=== PATIENT | male | born 1940 | race Caucasian/White ===

== ENCOUNTER 2019-09-02 14:08 | Outpatient (CLI) | payer MEDICARE, SELFPAY ==
--- NOTE | ~2019-09-02 | XR_ITS ---
EXAMINATION: XR knee LT min 4V DATE: 09/02/2019 14:30 INDICATION: Left knee pain TECHNIQUE: Four views of the left knee were obtained. COMPARISON: None. FINDINGS: Alignment is normal. No fracture or osteochondral lesion. There is mild tricompartmental os teoarthritis characterized by tiny marginal osteophytes. There is a small knee joint effusion. Soft t issues are unremarkable. IMPRESSION: 1. Small knee joint effusion. Reviewed, dictated and finalized at location A.
== END 2019-09-02 14:09 | disposition home or self-care (01) ==
PROVIDERS: PCP Family Medicine Adolescent Medicine; Visit Provider Family Medicine Adolescent Medicine
DX: M25.562 Pain in left knee (principal); M25.462 Effusion, left knee
CPT/HCPCS: 73564

== ENCOUNTER 2019-09-11 11:39 | Outpatient (CLI) | payer MEDICARE, SELFPAY ==
--- NOTE | ~2019-09-11 | US_ITS ---
EXAMINATION: US venous doppler [facility] DATE: 09/11/2019 12:29 INDICATION: Left lower limb edema. TECHNIQUE: Grayscale ultrasound images without and with compression and Doppler ultrasound images of the left lower extremity veins were obtained. COMPARISON: Ultrasound 08/30/2017 FINDINGS: The visualized portions of left common femoral vein, profunda (deep) femoral vein, femoral vein, popl iteal vein, peroneal veins, posterior tibial veins, and greater saphenous vein outflow are patent. IMPRESSION: 1. No deep venous thrombosis. Reviewed, dictated and finalized at location A.
== END 2019-09-11 11:40 | disposition home or self-care (01) ==
PROVIDERS: PCP Family Medicine Adolescent Medicine; Visit Provider Orthopaedic Surgery
DX: R60.0 Localized edema (principal)
CPT/HCPCS: 93971

== ENCOUNTER 2020-07-27 11:39 | Outpatient (CLI) | payer MEDICARE, SELFPAY ==
--- NOTE | 2020-07-27 13:08 | ECG_ITS ---
Measurements Intervals [place] Rate: 59 P: 50 [place]: 180 QRS: -18 QRSD: 87 T: 43 QT: 416 QTc: 413 Interpretive Statements SINUS BRADYCARDIA POOR R WAVE PROGRESSION, ANTERIOR LEADS BASELINE ARTIFACT- I, II, III, AVR, AVL BORDERLINE ECG Electronically Signed On 07-27-2020 15:27:23 CDT by George Wilkins D.O.
[2020-07-27 13:42] LABS: Basophils Percent Auto 0.5 % (0.2-1.2); Eosinophils Absolute Auto 0.4 K/mm3 (0-0.3); Eosinophils Percent Auto 7.5 % (0-4.4); Hematocrit 36.8 % (42.0-52.0); Hemoglobin 11.8 g/dL (14.0-18.0); Immature Granulocyte Absolute 0.04 K/mm3 (0.00-0.031); Immature Granulocyte Percent A 0.7 % (0-0.5); Lymphocytes Absolute Auto 1.37 K/mm3 (0.9-3.2); Lymphocytes Percent Auto 23.4 % (18.3-44.2); Mean Corpuscular HGB Conc 32.1 g/dl (32-36); Mean Corpuscular Hemoglobin 26.5 pg (26-34); Mean Corpuscular Volume 82.5 fl (80-100); Mean Platelet Volume 10.4 fl (7.4-10.4); Monocytes Absolute Auto 0.5 K/mm3 (0.1-0.6); Monocytes Percent Auto 9.2 % (2.6-8.5); Neutrophils Absolute Auto 3.4 K/mm3 (1.3-6.7); Neutrophils Percent Auto 58.7 % (45.5-73.1); Platelet Count Result 163 k/mm3 (150-375); Red Blood Count 4.46 M/mm3 (4.6-6.20); Red Cell Distribution Width 14.7 % (11.5-14.5); White Blood Count 5.9 K/mm3 (4.5-10.0)
[2020-07-27 13:48] LABS: Urine Cotinine NEGATIVE
[2020-07-27 13:55] LABS: Albumin Level 3.9 g/dL (3.5-5.1); Estimated Glomerular Filt Rate 59; Glucose 90 mg/dL (75-110)
[2020-07-27 13:57] LABS: Hemoglobin A1C 5.6 % (<5.7)
== END 2020-07-27 11:40 | disposition home or self-care (01) ==
LOC: ANHSURGERY 11:44
PROVIDERS: PCP Family Medicine Adolescent Medicine; Visit Provider Orthopaedic Surgery
DX: M17.12 Unilateral primary osteoarthritis, left knee (principal); Z01.818 Encounter for other preprocedural examination; R94.31 Abnormal electrocardiogram [ECG] [EKG]
CPT/HCPCS: 80307; 82040; 82565; 82947; 83036; 85025; 86850; 86900; 86901; 93005

== ENCOUNTER → 2020-08-02 00:47 | Outpatient (CLI) | payer MEDICARE, SELFPAY ==
[2020-08-02 20:24] LABS: SARS-CoV-2 RNA PCR Negative
== END ==
PROVIDERS: PCP Family Medicine Adolescent Medicine; Visit Provider Orthopaedic Surgery
DX: M17.12 Unilateral primary osteoarthritis, left knee (principal); Z01.812 Encounter for preprocedural laboratory examination; Z20.822 Contact with and (suspected) exposure to COVID-19
CPT/HCPCS: C9803; U0003; U0005

== ENCOUNTER 2020-08-05 01:36 | Day surgery (SDC) | payer MEDICARE, SELFPAY ==
[2020-07-27 12:30] VITALS: BP 132/70; PULSE 58; RESP 20; TEMP 36.7; O2SAT 95; BMI 28.1
--- NOTE | 2020-07-29 10:13 | PM.IMHP ---
H&P: HPI History of Present Illness Date/Time: 07/29/20 10:13 The patient is a 80-year-old male presents with left knee pain. The patient has a chronic ongoing history of pain localized to the left knee this is due to primary osteoarthritis. Patient has trouble squatting kneeling twisting or turning going up and down stairs. Can not stand or walk for long periods. The pain is worse with activity somewhat relieved by rest. Despite conservative measures over the years including cortisone therapy and anti-inflammatories symptoms continue. X-rays do show advanced primary osteoarthritis in the left knee joint. The patient notes loss of motion a aching pain with [id number] changes noted on x-ray. The patient has a varus deformity of the knee that is worse with time as well. At this point the patient has discussed further treatment options in detail with Dr. Verde he would now like to proceed with left total knee arthroplasty. Chief Complaint: Left knee pain due to advanced primary osteoarthritis left knee joint Review of Systems Review of Systems: All systems reviewed & are unremarkable except as noted in HPI and below PMFSH Family History Family History Father Cerebrovascular accident, Onset Age: 63 Social History Social History Smoking status: Never smoker Smokeless tobacco user: chewing tobacco Second hand tobacco smoke exposure: No Additional smoking assessment comments: STATES CHEWED FROM AGE 15 UNTIL QUITTING IN 2014 Alcohol intake: never Substance use: never Substance use type: does not use Spiritual care concerns: No Meds Home Medications and Allergies Home Medications Medication Instructions Recorded Confirmed Type Vinegar 2 tab-cap HS 07/27/20 History ascorbic acid (vitamin C) [Vitamin 1 g PO DAILY 07/27/20 07/27/20 History C] aspirin [Aspirin Low Dose] 81 mg PO HS 07/27/20 07/27/20 History atenolol 50 mg PO QAM 07/27/20 07/27/20 History atorvastatin 40 mg PO QAM 07/27/20 07/27/20 History brinzolamide-brimonidine 1 drp EACH EYE TID 07/27/20 07/27/20 History [Simbrinza] cswquvvxcaxun-snb-gguh20-PF 1 drp EACH EYE BID 07/27/20 07/27/20 History [Refresh Optive Silas-3 (PF)] folic acid 0.8 mg PO QAM 07/27/20 07/27/20 History ipratropium bromide 2 spray INTRANASAL BID 07/27/20 07/27/20 History latanoprost 1 drp RIGHT EYE HS 07/27/20 07/27/20 History multivitamin [Multi-Vitamin] 1 tablet PO QAM 07/27/20 07/27/20 History co-px-ax3-vjv-usy-rci-flx-lact 1 cap PO BID 07/27/20 07/27/20 History [Dry Eye Formula] omeprazole 20 mg PO BID 07/27/20 07/27/20 History tamsulosin 0.4 mg PO HS 07/27/20 07/27/20 History tiotropium-olodaterol [Stiolto 1 puff INHALATION BID 07/27/20 07/27/20 History Respimat] vitamin K35-jmlkg acid 1 tablet PO DAILY 07/27/20 07/27/20 History vitamin E 450 mg PO DAILY 07/27/20 07/27/20 History Allergies Allergy/AdvReac Type Severity Reaction Status Date / Time Penicillins Allergy Severe STATES Unverified 07/27/20 12:13 HUGE RASH Exam Narrative: Exam Narrative: On exam the patient is noted be a well-developed well-nourished male no acute distress. He is alert and oriented x3. Normal mood and affect. Hearing and vision are intact. Respiratory is good no distress. Pulse regular rate rhythm. Abdomen benign. Extremities showed the patient's left knee to be painful with manipulation range of motion. He has motion from 5-95 degrees with varus deformity subpatellar crepitation is noted with tenderness on the medial joint line. Mild knee joint effusion is noted and pain with extremes of motion. Neurovascular is intact. Walks an antalgic gait because of his knee pain. Hips move well with negative Stinchfield negative ROGE. Skin is intact. Central nervous system exam within normal limits. Assessment and Plan Additional Plan By x-ray and exam
[2020-08-05] VITALS (16 sets, daily range): BP systolic 129–172; BP diastolic 56–82; PULSE 54–64; RESP 10–20; TEMP 36.1–36.8; O2SAT 97–100
--- NOTE | ~2020-08-05 | XR_ITS ---
XR knee LT 2V DATE: 08/05/2020 09:50 INDICATION: Left total knee replacement TECHNIQUE: Postoperative AP and crosstable lateral views of the left knee COMPARISON: 09/02/2019 left knee FINDINGS: There are anterior left knee skin rogerio. There is expected subcutaneous and intra-articul ar emphysema following left total knee arthroplasty with patellar resurfacing. Normal alignment of th e prosthetic components. No fracture or dislocation, periosteal reaction or bone destruction or unusu al radiopaque foreign body is evident. IMPRESSION: Left total knee arthroplasty with patellar resurfacing Reviewed, dictated and finalized at location B.
[2020-08-05] MEDS: ACETAMINOPHEN 500 MG TABLET 1000 MG PO (06:31)
[2020-08-05] MEDS: LACTATED RINGERS 1,000 ML 30 ML IV CONT ×2 (06:48→09:34)
--- NOTE | 2020-08-05 06:49 | WPDANESEPPF ---
Anes - Initial Pre Proc Eval Procedure: Operation Date: 08/05/20 07:30 Proposed Procedures p Left Total Knee Arthroplasty - Tim Verde MD Date/Time: 08/05/20 06:49 Surgeon: Tim Verde MD Pre Op Diagnosis: OA left knee Patient Data Age: 80 Gender: M Height: 5 ft 8 in Weight: 78.7 kg Last Vital Signs Temp 36.1 C L 08/05/20 06:06 Pulse 64 08/05/20 06:06 Resp 16 08/05/20 06:06 BP 172/82 H 08/05/20 06:06 Pulse Ox 100 08/05/20 06:06 Allergies Allergy/AdvReac Type Severity Reaction Status Date / Time Penicillins Allergy Severe Hives Verified 08/05/20 06:08 Home Medications Medication Instructions Recorded Confirmed Type Vinegar 2 tab-cap HS 07/27/20 08/05/20 History ascorbic acid (vitamin C) [Vitamin 1 g PO DAILY 07/27/20 08/05/20 History C] aspirin [Aspirin Low Dose] 81 mg PO HS 07/27/20 08/05/20 History atenolol 50 mg PO QAM 07/27/20 08/05/20 History atorvastatin 40 mg PO QAM 07/27/20 08/05/20 History brinzolamide-brimonidine 1 drp EACH EYE TID 07/27/20 08/05/20 History [Simbrinza] mkebdrwuwmvfm-jgu-cksy88-PF 1 drp EACH EYE PRN 07/27/20 08/05/20 History [Refresh Optive Silas-3 (PF)] folic acid 0.8 mg PO QAM 07/27/20 08/05/20 History ipratropium bromide 2 spray INTRANASAL BID 07/27/20 08/05/20 History latanoprost 1 drp RIGHT EYE HS 07/27/20 08/05/20 History multivitamin [Multi-Vitamin] 1 tablet PO QAM 07/27/20 08/05/20 History aj-vm-fo1-eic-vwz-gok-flx-lact 1 cap PO BID 07/27/20 08/05/20 History [Dry Eye Formula] omeprazole 20 mg PO BID 07/27/20 08/05/20 History tamsulosin 0.4 mg PO HS 07/27/20 08/05/20 History tiotropium-olodaterol [Stiolto 1 puff INHALATION BID 07/27/20 08/05/20 History Respimat] vitamin A51-ezedg acid 1 tablet PO DAILY 07/27/20 08/05/20 History vitamin E 450 mg PO DAILY 07/27/20 08/05/20 History Patient hx anesthesia problems: none Family hx anesthesia problems: none PMFSH Past Medical History Medical History (Updated 08/05/20 @ 06:50 by Matt Watkins MD) COPD (chronic obstructive pulmonary disease) HTN (hypertension) Hyperlipidemia Surgical History Surgical History (Updated 08/05/20 @ 06:50 by Matt Watkins MD) H/O hernia repair History of shoulder surgery Family History Family History Father Cerebrovascular accident, Onset Age: 63 Social History Social History Smoking status: Never smoker Smokeless tobacco user: chewing tobacco Second hand tobacco smoke exposure: No Additional smoking assessment comments: STATES CHEWED FROM AGE 15 UNTIL QUITTING IN 2014 Alcohol intake: never Substance use: never Substance use type: does not use Living arrangements: with family Spiritual care concerns: No Anes - Eval Final PreProcedure Day of Procedure 08/05/20 06:49 Patient weight: normal Heart: regular rate and rhythm Lungs: clear to auscultation Airway: Mallampati scale class II Neurological: alert and oriented Last oral intake: >/= 8 hours ASA classification: III Emergent: no Anesthetic plan: proceed Anesthesia type and monitoring: general LMA and standard monitoring Informed Consent: The patient's anesthetic plan and its attendant risks and benefits were discussed with the patient/family/POA. Questions were solicited and answers provided to the satisfaction of the patient/family/POA.
[2020-08-05] MEDS: TRANEXAMIC ACID 1,000MG/ISO100 1,000 MG/100 ML BAG 200 MG IVPB (07:05)
--- NOTE | 2020-08-05 07:11 | WPDHPUPDATE1 ---
History and Physical Update Update Date/Time: 08/05/20 07:11 History and Physical has been reviewed, including an updated exam of the patient. There are NO changes in the patient's condition. Risks, benefits, and alternatives have been discussed and questions answered. Patient agrees to proceed with procedure.
--- NOTE | 2020-08-05 07:20 | WPDANESPNB ---
Anes - Peripheral Nerve Block Date/Time: 08/05/20 07:20 I have discussed with the patient/family/POA the placement of a peripheral nerve block for post-operative pain management, including associated risks, benefits, complications, and side effects. Alternative methods of post-operative analgesia were detailed. Questions were solicited and answers provided to the satisfaction of the patient/family/POA. Time-Out: A pre-procedural Time-Out was completed immediately before starting the procedure and confirmed: Patient Identification, Site, Procedure, Patient Position and the Availability of Requisite Equipment. Clinical Indications: Acute post-operative pain management requested by the operative surgeon. Nerve Block Insertion Note Anes-nerve block: femoral left Patient position: supine Needle: 22 gauge, stimulating, insulated echogenic needle. Needle length: 50 mm Technique: nerve stimulation lost at (mA) (0.4) Injectate: bupivacaine 0.5% with epi 5 mcg/ml (20cc) and dexamethasone (mg) (6cc) Observations: tolerated well Complications: none Procedure start time:: 718 Procedure end time::
[2020-08-05] MEDS: ceFAZolin 2 GM/D5W 50 ML 2 GM/50 ML BAG IVPB (07:25)
[2020-08-05] MEDS: GENTAMICIN BONE CEMENT REFOBACIN 1 EACH TOPICAL (08:07)
--- NOTE | 2020-08-05 09:02 | PM.PROC ---
Procedure Note - Detailed Date of procedure: 08/05/20 Pre-op diagnosis: OA left knee Post-op diagnosis: same Procedure performed: [Right] total knee arthroplasty Description of procedure: The patient was brought to the operating room. General anesthetic was administered. Placed on the operating table and sterilely prepped and draped in usual manner. A longitudinal incision was made. Tourniquet inflated to 300 mmHg for a total of [time] minutes. Dissection carried down to the fascia. Medial parapatellar incision was made and the patella subluxated laterally. Patella cut from [27] to [16] mm and sized for a [37] mm button. The tibia cut perpendicular to the long axis and femur cut in 5 degrees of valgus, a [67.5] femur trialed. [71] tibia was felt to fit the best. The soft tissue balanced, hemostasis obtained. All [address], [71] tibia, [67.5] femur, [37] mm patella, and [] mm poly. Motion was 0-125 degrees with good stablility and flexion and extension. The wound was closed with #2 vicryl, 2-0 Vicryl and rogerio. Anesthesia: GETA Surgeon: Tim Verde MD Telesales Specialist: Malcolm Conn Estimated blood loss (mL): 200 Drains: No Packing: No Pathology: none sent Complications: No immediate complications Condition: stable Disposition: PACU Findings: arthritis
[2020-08-05] MEDS: fentaNYL CITRATE INJ (*CRX) 100 MCG/2 ML VIAL 25 MCG IV PUSH ×4 (10:16→11:20)
--- NOTE | 2020-08-05 10:39 | SUR.PHASEI ---
[phone] sbar faxed floor notified
--- NOTE | 2020-08-05 12:45 | ADMGEN ---
This patient, Dylan Masters, was admitted to Medical Room 242-01. Patient/family oriented to hospital policies and general routines including ID bracelet, bed and alarms, visiting hours, pain management, procedures, bathroom and other care routines, personal items, smoking policy, room service/diet, and visiting hours. Information on how to activate the Rapid Response Team has been discussed. Patient/Family are encouraged to report perceived risks to care and to ask questions if they do not understand what they are told or what they should do.
[2020-08-05] MEDS: PANTOPRAZOLE 40 MG TABLET PO ×2 (12:51→18:04)
[2020-08-05] MEDS: DOCUSATE SODIUM 100 MG CAPSULE PO ×2 (12:51→18:04)
[2020-08-05] MEDS: ATORVASTATIN 40 MG TABLET PO (12:51)
[2020-08-05] MEDS: CELECOXIB 200 MG CAPSULE PO ×2 (12:51→18:04)
[2020-08-05] MEDS: BRIMONIDINE TARTRATE 0.2% OP SOLN 5 ML BTL 1 DROP EACH EYE ×2 (12:52→18:04)
[2020-08-05] MEDS: atenoloL 50 MG TABLET PO (12:52)
[2020-08-05] MEDS: BRINZOLAMIDE 1% OPHTH SUSP 10 ML 1 DROP EACH EYE ×2 (12:53→18:04)
--- NOTE | 2020-08-05 15:53 | PM.IMCN ---
Assessment and Plan Assessment and plan (1) Total knee replacement status: Code(s): Z96.659 - Presence of unspecified artificial knee joint Status: Acute Assessment and Plan: Postop care per orthopedic provider Dr. Verde. DVT prophylaxis per Dr. Verde. The patient is Xarelto. Continue with PT and OT. (2) HTN (hypertension): Code(s): I10 - Essential (primary) hypertension Status: Chronic Assessment and Plan: Continue with his home medication of atenolol. (3) Hyperlipidemia: Code(s): E78.5 - Hyperlipidemia, unspecified Status: Chronic Assessment and Plan: Continue with Lipitor (4) Glaucoma: Code(s): H40.9 - Unspecified glaucoma Status: Chronic Assessment and Plan: Continue with home eye drops. (5) Rheumatoid arthritis: Code(s): M06.9 - Rheumatoid arthritis, unspecified Status: Chronic Assessment and Plan: This is being managed outpatient. (6) BPH (benign prostatic hyperplasia): Code(s): N40.0 - Benign prostatic hyperplasia without lower urinary tract symptoms Status: Chronic Assessment and Plan: Continue with Flomax HPI Data of Consult Consult date: 08/05/20 Requesting Physician: Tim Verde MD Primary Care Provider: Benedicto Westbrook MD Consult Narrative Narrative: Dylan Masters is a 80 year old male who has a history of rheumatoid arthritis. The patient has been having chronic left knee pain. The patient was scheduled for surgery last year but due to covid 19 pandemic he was unable to have surgery performed at that time. 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 The patient is unable to tolerate the discomfort. He did try conservative measures over the years including a cortisone therapy and anti-inflammatories. The patient notes loss of motion and signs of advanced primary osteoarthritis left knee joint. The patient has varus deformity of the left knee. The patient underwent a left total knee arthroplasty per Dr. Verde today. Please see operative note. According to the procedure note there were no immediate complications. The patient is sitting up in the chair without any complaints at this time. The patient is being admitted for observation and I am seeing him as a consult on the date of service of 08/05/2020. Review of Systems Review of Systems: All systems reviewed & are unremarkable except as noted in HPI and below Constitutional: Constitutional: Reports as per HPI and Reports no additional constitutional complaints Eyes: Eyes: Reports as per HPI and Reports no additional eye complaints ENT: Reports system reviewed and no additional complaints, except as documented and Reports Normal hearing present Cardiovascular: Cardiovascular: Reports no additional cardiovascular complaints Respiratory: Respiratory: Reports no additional respiratory complaints and Reports no additional respiratory complaints Gastrointestinal: Gastrointestinal: Reports as per HPI and Reports no additional gastrointestinal complaints Musculoskeletal: Musculoskeletal: Reports no additional musculoskeletal complaints Integumentary/Breasts: Skin/Breast: Reports system reviewed and no additional complaints, except as docu and Reports as per HPI Neurologic: Reports system reviewed and no additional complaints, except as documented, Reports as per HPI and Reports Normal hearing present Psychiatric: Psychiatric: Reports no additional psychiatric complaints and Reports as per HPI Endocrine: Endocrine: Reports no additional endocrine complaints Hematologic/Lymphatic: Hematologic/Lymphatic: Reports no additional hematologic/lymphatic complaints Allergic/Immunologic: Allergic/Immunologic: Reports no additional allergic/immunologic complaints [facility] Past Medical History Medical History (Updated 08/05/20 @ 16:05 by Sharona Gotti NP) AAA (abdominal aortic aneurysm) Rachid
[2020-08-05] MEDS: RIVAROXABAN 10 MG TABLET PO (18:04)
[2020-08-05] MEDS: SENNOSIDES 8.6 MG TABLET 17.2 MG PO (20:14)
[2020-08-05] MEDS: LATANOPROST 0.005% OP SOLN 2.5 ML BTL 1 DROP RIGHT EYE (20:14)
[2020-08-05] MEDS: ASPIRIN 81 MG ENTERIC TABLET PO (20:15)
[2020-08-05] MEDS: TAMSULOSIN HCL 0.4 MG CAPSULE PO (20:15)
[2020-08-06] VITALS (9 sets, daily range): BP systolic 124–147; BP diastolic 56–66; PULSE 52–68; RESP 14–20; TEMP 36.1–36.4; O2SAT 98–100
[2020-08-06] MEDS: oxyCODONE/ACETAMINOPHEN (*CRX) 5-325 MG TABLET 1 TABLET PO ×2 (04:22→08:18)
[2020-08-06 05:48] LABS: Basophils Percent Auto 0.2 % (0.2-1.2); Eosinophils Absolute Auto 0.1 K/mm3 (0-0.3); Eosinophils Percent Auto 1.1 % (0-4.4); Hematocrit 32.5 % (42.0-52.0); Hemoglobin 10.5 g/dL (14.0-18.0); Immature Granulocyte Absolute 0.04 K/mm3 (0.00-0.031); Immature Granulocyte Percent A 0.5 % (0-0.5); Lymphocytes Absolute Auto 1.46 K/mm3 (0.9-3.2); Lymphocytes Percent Auto 16.5 % (18.3-44.2); Mean Corpuscular HGB Conc 32.3 g/dl (32-36); Mean Corpuscular Hemoglobin 27.1 pg (26-34); Mean Platelet Volume 11.2 fl (7.4-10.4); Monocytes Absolute Auto 0.9 K/mm3 (0.1-0.6); Monocytes Percent Auto 10.3 % (2.6-8.5); Neutrophils Absolute Auto 6.3 K/mm3 (1.3-6.7); Neutrophils Percent Auto 71.4 % (45.5-73.1); Platelet Count Result 128 k/mm3 (150-375); Red Blood Count 3.87 M/mm3 (4.6-6.20); White Blood Count 8.9 K/mm3 (4.5-10.0)
[2020-08-06 06:06] LABS: Anion Gap 3 mmol/L (8-16); Blood Urea Nitrogen 22 mg/dL (9-20); Calcium 8.8 mg/dL (8.4-10.2); Carbon Dioxide 25 mmol/L (22-30); Chloride 110 mmol/L (98-107); Estimated CRCL calculation 38 ml/min; Estimated Glomerular Filt Rate 49; Glucose 113 mg/dL (75-110); Potassium 3.6 mmol/L (3.4-5.0); Sodium 138 mmol/L (137-145)
[2020-08-06] MEDS: PANTOPRAZOLE 40 MG TABLET PO (08:18)
[2020-08-06] MEDS: DOCUSATE SODIUM 100 MG CAPSULE PO (08:18)
[2020-08-06] MEDS: atenoloL 50 MG TABLET PO (08:18)
[2020-08-06] MEDS: ATORVASTATIN 40 MG TABLET PO (08:18)
[2020-08-06] MEDS: BRINZOLAMIDE 1% OPHTH SUSP 10 ML 1 DROP EACH EYE (09:14)
[2020-08-06] MEDS: BRIMONIDINE TARTRATE 0.2% OP SOLN 5 ML BTL 1 DROP EACH EYE (09:14)
--- NOTE | 2020-08-06 11:58 | PM.IMPN ---
Progress Note: A&P Assessment and Plan (1) Total knee replacement status: Qualifiers: Laterality: right Qualified Code(s): Z96.651 - Presence of right artificial knee joint Code(s): Z96.659 - Presence of unspecified artificial knee joint Status: Acute Assessment and Plan: POD#1 s/p planned right total knee arthroplasty by Dr Verde. Wound care, pain control, and DVT prophylaxis per the primary service. (2) HTN (hypertension): Qualifiers: Hypertension type: essential hypertension Qualified Code(s): I10 - Essential (primary) hypertension Code(s): I10 - Essential (primary) hypertension Status: Chronic Assessment and Plan: BPs reviewed; stable maintained on his home beta-blockade. Continue atenolol, monitor BP. (3) Hyperlipidemia: Qualifiers: Hyperlipidemia type: unspecified Qualified Code(s): E78.5 - Hyperlipidemia, unspecified Code(s): E78.5 - Hyperlipidemia, unspecified Status: Chronic Assessment and Plan: Maintained on his home statin therapy. (4) Glaucoma: Qualifiers: Glaucoma type: unspecified Laterality: unspecified laterality Qualified Code(s): H40.9 - Unspecified glaucoma Code(s): H40.9 - Unspecified glaucoma Status: Chronic Assessment and Plan: Continue with home eye drops. (5) Rheumatoid arthritis: Qualifiers: Rheumatoid arthritis location: unspecified site Rheumatoid factor presence: unspecified presence Qualified Code(s): M06.9 - Rheumatoid arthritis, unspecified Code(s): M06.9 - Rheumatoid arthritis, unspecified Status: Chronic Assessment and Plan: No acute issues. (6) BPH (benign prostatic hyperplasia): Qualifiers: Lower urinary tract symptom presence: symptoms absent Qualified Code(s): N40.0 - Benign prostatic hyperplasia without lower urinary tract symptoms Code(s): N40.0 - Benign prostatic hyperplasia without lower urinary tract symptoms Status: Chronic Assessment and Plan: No acute issues, Continue with Flomax. Additional Plan Thank you for allowing me to participate in this patient's care. Will follow with you while he is here. No medication changes made at this time. Discharge planning per the primary service; medically he is stable for discharge today from hospitalist standpoint. Call for any questions or concerns. Subjective Date/time seen: 08/06/20 1115 Interval history: Mr. Masters is a very pleasant 80yo M seen in follow-up now POD#1 s/p right total knee arthroplasty by Dr Verde. He is feeling well today and just finished working with therapy. He denies chest pain or shortness of breath. Pain is controlled at rest currently. Had a BM this morning. Tolerated breakfast without nausea, vomiting, or abdominal pain. Review of Systems Review of Systems: All systems reviewed & are unremarkable except as noted in HPI and below Exam Narrative: Exam Narrative: General: Male resting comfortably sitting up in bedside chair in no acute distress. HEENT: Normocephalic, EOMI, oral mucosa moist. Cardiovascular: Rate and rhythm are regular. Respiratory: Lungs clear to auscultation bilaterally. Respirations even and non-labored. Abdomen: Soft, non-tender, non-distended, bowel sounds present. Extremities: Peripheral pulses intact. Ice pack on right knee. RLE neurovascularly intact distal to the surgical site. Neuro: No focal neurological deficits. Speech is clear. Objective Data Vital Signs Vital Signs: Last Vital Signs Temp 97.6 F 08/06/20 09:20 Pulse 57 L 08/06/20 09:20 Resp 16 08/06/20 09
[2020-08-06] MEDS: HYDROcodone/acetaminophen (*CRX) 7.5-325 MG TABLET 1 TAB PO (14:18)
== END 2020-08-06 15:30 | disposition home or self-care (01) ==
LOC: ANHSURGERY 09:01 → ANH2MED 11:39
PROVIDERS: PCP Family Medicine Adolescent Medicine; Visit Provider Orthopaedic Surgery
PROC: (CPT 27447; principal; 2020-08-05 07:30)
DX: M17.12 Unilateral primary osteoarthritis, left knee (principal); G89.18 Other acute postprocedural pain; I10 Essential (primary) hypertension; E78.5 Hyperlipidemia, unspecified; J44.9 Chronic obstructive pulmonary disease, unspecified; Z87.891 Personal history of nicotine dependence
CPT/HCPCS: 27447; 64447; 36415; 73560; 80048; 80307; 82040; 82565; 82947; 83036; 85025; 86850; 86900; 86901; 93005; 97110; 97116; 97161; 97165; 97530; 97535; A9270; C1713; C1776; C9803; J0171; J0690; J1100; J1885; J2270; J2405; J2704; J2795; J3010; J3370; J7120; U0003; U0005

== ENCOUNTER 2020-10-05 12:34 | Outpatient (CLI) | payer MEDICARE, SELFPAY ==
--- NOTE | ~2020-10-05 | CT_ITS ---
EXAMINATION: CTA chest DATE: 10/05/2020 13:33 INDICATION: Thoracic aortic aneurysm without rupture TECHNIQUE: Computed tomographic angiography (CTA) of the chest was performed without and with 100 mL Omnipque-350 intravenous contrast. Maximum intensity projection 3D-reconstructions of the aorta and o ther arteries were constructed by the technologist on a separate workstation. The dose-length product (DLP) was 605.30 mGy-cm. Automated exposure control and iterative reconstruction technique were empl oyed. COMPARISON: 12/08/2016 FINDINGS: There is fusiform enlargement of the ascending aorta which measures up to 4.1 cm at the lev el of the main pulmonary artery. There is no dissection. Respiratory motion artifact slightly limits evaluation of the lung parenchyma. No acute opacities are identified. There is no pleural effusion or pneumothorax. Cardiomegaly is noted. There is a trace pericardial effusion. Calcified coronary arter y atherosclerosis is noted. There is stable, chronic mediastinal lymphadenopathy. A 6 mm nodule is no jessica in the left thyroid lobe. There is a partially imaged cyst of the left kidney measuring up to 13. 4 cm. A 10 mm cyst is noted in the right hepatic lobe. There is mild thoracic spondylosis. IMPRESSION: 1. Fusiform enlargement of the ascending aorta measuring up to 4.1 cm. 2. Cardiomegaly. 3. Stable, chronic mediastinal lymphadenopathy, likely old granulomatous disease. Reviewed, dictated and finalized at location A. IMPRESSION: 1. Fusiform enlargement of the ascending aorta measuring up to 4.1 cm. 2. Cardiomegaly. 3. Stable, chronic mediastinal lymphadenopathy, likely old granulomatous diseas e.
[2020-10-05 13:27] LABS: Estimated Glomerular Filt Rate 49
== END 2020-10-05 12:35 | disposition home or self-care (01) ==
PROVIDERS: PCP Family Medicine Adolescent Medicine; Visit Provider Internal Medicine Cardiovascular Disease
DX: I71.2 Thoracic aortic aneurysm, without rupture (principal); I51.7 Cardiomegaly
CPT/HCPCS: 71275; Q9967

== ENCOUNTER → 2022-04-10 16:42 | Outpatient (CLI) | payer MEDICARE, SELFPAY ==
--- NOTE | ~2022-04-10 | XR_ITS ---
XR foot RT min 3V 04/10/2022 17:38 Indication: Right foot pain Procedure: 3 views right foot Comparison: No prior studies for comparison. Findings: Osteopenia. There is a fracture deformity of the second proximal phalanx, likely chronic. T here is osteoarthritis of the first MTP joint. Lisfranc joint intact. Small degenerative calcaneal en thesophyte at the plantar surface. No focal soft tissue abnormality. No foreign bodies. Impression: 1: Fracture deformity right second proximal phalanx, likely chronic. Correlate for point tenderness. 2: Mild osteoarthritis of the first MTP joint. Reviewed, dictated and finalized at location A. GROWER Impression: 1: Fracture deformity right second proximal phalanx, likely chronic. Correlate for point tenderness. 2: Mild osteoarthritis of the first MTP joint.
== END ==
PROVIDERS: PCP Family Medicine Adolescent Medicine; Visit Provider Podiatrist Foot & Ankle Surgery
DX: M19.071 Primary osteoarthritis, right ankle and foot (principal)
CPT/HCPCS: 73630

== ENCOUNTER 2022-09-05 14:02 | Outpatient (CLI) | payer MEDICARE, SELFPAY ==
--- NOTE | ~2022-09-05 | XR_ITS ---
EXAMINATION: XR chest 2V Exam Date/Time: 09/05/2022 14:15 CDT HISTORY: dyspnea> 8 mos, hx of HTN, AAA, COPD,chews tobacco Comparison: 06/22/2015; CT chest 10/05/2020. RESULT: Lines, tubes, and devices: None. Lungs and pleura: Clear. Right lower lung scar. Cardiomediastinal silhouette: Stable. Calcified nodes. Other: No acute osseous or upper abdominal finding. Right nephrolithiasis. IMPRESSION: No acute cardiopulmonary process. Reviewed, dictated and finalized at location K.
== END 2022-09-05 14:03 | disposition home or self-care (01) ==
LOC: ANHIMG 14:06
PROVIDERS: PCP Family Medicine Adolescent Medicine; Visit Provider Internal Medicine Pulmonary Disease
DX: R06.09 Other forms of dyspnea (principal); I10 Essential (primary) hypertension; J44.9 Chronic obstructive pulmonary disease, unspecified; F17.220 Nicotine dependence, chewing tobacco, uncomplicated
CPT/HCPCS: 71046

== ENCOUNTER 2022-09-13 12:26 | Outpatient (CLI) | payer MEDICARE, SELFPAY ==
[2022-09-13 13:00] VITALS: PULSE 59; O2SAT 99
[2022-09-13 13:05] VITALS: PULSE 78; O2SAT 95
[2022-09-13 13:07] LABS: Alveolar/Arterial O2 Gradient 25.8 mmHg; Base Excess ABG -3.8 mEq/l (+/-2.0); Carboxyhemoglobin 0.9 % THb (0-2.0); Fractional Inspired Oxygen 21 %; HCO3 ABG 19.9 mEq/l (22.0-26.0); Methemoglobin ABG 0.3 %THb (0-1.5); Oxygen Content ABG 16.8 %vol (16.0-22.0); Oxygen Saturation ABG 96.7 % (95.0-100.0); PCO2 ABG 31.9 mmHg (35.0-45.0); PO2 ABG 85.7 mmHg (80.0-100.0); PO2 FiO2 Ratio Arterial Blood 4.08 %; Reduced Hemoglobin 3.8 %THb (0-5.0); Total Hemoglobin 12.5 g/dL (12.0-18.0); pH ABG 7.413 (7.350-7.450)
[2022-09-13 13:09] LABS: Device ROOM AIR; Modified Allen's Test Pass; Site Drawn RIGHT RADIAL
[2022-09-13 13:15] VITALS: PULSE 60; O2SAT 98
--- NOTE | 2022-09-13 13:45 | HOMEO2EVAL ---
Evaluation was performed at [facility] Home Oxygen Evaluation RC: Home Oxygen (O2) Evaluation Start: 09/13/22 13:43 Freq: Status: Active Protocol: RPE Activity Type Activity Date Activity User E-sign Co-sign Detail Recorded Client Recorded Date Recorded By Document 09/13/22 13:00 DJO [id number] 09/13/22 13:45 DJO Document 09/13/22 13:05 [email or web address] [id number] 09/13/22 13:45 DJO Document 09/13/22 13:15 [email or web address] [email or web address] 09/13/22 13:45 DJO 09/13/22 09/13/22 09/13/22 13:00 13:05 13:15 Home O2 Evaluation [Oxygen] -Test Phase Resting Exercise Resting -Oxygen Delivery Room Air Room Air Room Air [Pulse Oximetry] -Pulse Oximetry (90-100 %) 99 95 98 [Pulse Rate] -Pulse Rate (60-100 beats/min) 59 L 78 60 [Evaluation] -Activity Tolerance Good [Charges] -Treatment Charges O2 Evaluation - Outpatient
--- NOTE | 2022-09-13 15:09 | WPDPFTINT ---
PFT Procedure Performed PFT Procedure Performed Spirometry with Pre/Post Bronchodilator Plethysmography (Lung Vol) Diffusing Cap (DLCO) Flow Vol Loop PFT Interpretation This is a pulmonary function test with pre and post-bronchodilator spirometry, plethysmography and diffusing capacity. The test was performed and results interpreted in accordance with the 2019 and 2005 ATS/ERS Task Force guidelines respectively using the Global Lung Function Initiative-2012 reference equations. Patient demonstrated good effort and cooperation. Reproducibility criteria were met. The quality of the pre bronchodilator spirometry maneuver was Grade B and post bronchodilator spirometry maneuver was Grade A. Findings: Spirometry: The contour the inspiratory and expiratory flow tracing are normal. The pre bronchodilator FVC is 2.96 L, 76% predicted. The pre bronchodilator FEV1 is 2.03 L, 70% predicted. The pre bronchodilator FEV1 is 69%. The post bronchodilator FVC is 2.86 L, representing a 3% decrease. The post bronchodilator FEV1 is 2.12 L, representing a 5% increase. The post bronchodilator FEV1: FVC ratio 74%. Plethysmography: The total lung capacity is 6.60 L, 93% predicted. The functional residual capacity is 3.28 L, 86% predicted. The residual volume is 3.01 L, 113% predicted. Diffusion capacity: The diffusing capacity unadjusted for hemoglobin and carboxyhemoglobin is 16.7, 70% predicted. The diffusing capacity adjusted for alveolar volume is 3.76, 104% predicted. Resting room air arterial blood gas: PH of 7.41, PaCO2 32, PaO2 86. Impression: The spirometry is normal without evidence of an obstructive abnormality. There is no significant improvement after inhaling a single dose of albuterol. The lung volumes are normal. The diffusing capacity is normal. The resting room air arterial blood gas demonstrates a respiratory alkalosis and metabolic acidosis with a normal PaO2. There are no prior studies for comparison
== END 2022-09-13 12:27 | disposition home or self-care (01) ==
LOC: ANHPFT 12:27
PROVIDERS: PCP Family Medicine Adolescent Medicine; Visit Provider Internal Medicine Pulmonary Disease
DX: R06.09 Other forms of dyspnea (principal)
CPT/HCPCS: 36600; 82375; 82805; 83050; 94060; 94618; 94726; 94729

== ENCOUNTER 2022-11-02 13:34 | Outpatient (CLI) | payer MEDICARE, SELFPAY ==
--- NOTE | ~2022-11-02 | CT_ITS ---
CT Scan of the Chest without Contrast: Clinical Indication: Dyspnea, prior methotrexate therapy for rheumatoid arthritis Technique: Contiguous sections were acquired throughout the chest without intravenous contrast. Dose reduction technique was used on this scan by utilizing automated exposure control and iterative recon struction technique. The dose-length product (DLP) was 457.25 mGy-cm. COMPARISON: 10/05/2020 Findings: There is no evidence of any significant mediastinal, hilar or axillary lymphadenopathy. Small calcifi ed mediastinal and hilar lymph nodes are present. Coronary artery calcifications are present. Minimal pericardial effusion present. Ascending aorta measures 4.4 cm in maximum diameter. There is no evidence of pleural or pericardial effusion. The lungs are clear. No pulmonary nodules or infiltrates are noted. Images through the upper abdomen reveal partially imaged probable severe, marked hydronephrosis of th e left kidney with marked, severe cortical thinning, versus large left renal cyst. Multiple nonobstru cting stones are seen in the visualized right kidney.. Impression: Clear lungs. Ascending aortic aneurysm measures 4.4 cm in diameter, minimally increased from prior exam. Minimal pericardial effusion. Partially imaged probable severe, marked hydronephrosis of left kidney and severe cortical thinning, versus large left renal cyst. Appearance is stable from prior exam. Multiple nonobstructing stones present in the visualized right kidney. Reviewed, dictated and finalized at location M. Impression: Clear lungs. Ascending aortic aneurysm measures 4.4 cm in diameter, minimally increased from prior exam. Minimal pericardial effusion. Partially imaged probable severe, marked hydronephrosis of left kidney and brian re cortical thinning, versus large left renal cyst. Appearance is stable from p rior exam. Multiple nonobstructing stones present in the visualized right kidney.
== END 2022-11-02 13:35 | disposition home or self-care (01) ==
PROVIDERS: PCP Family Medicine Adolescent Medicine; Visit Provider Internal Medicine Pulmonary Disease
DX: M06.9 Rheumatoid arthritis, unspecified (principal); R06.09 Other forms of dyspnea; I71.40 Abdominal aortic aneurysm, without rupture, unspecified
CPT/HCPCS: 71250

== ENCOUNTER 2023-06-21 10:51 | Outpatient (CLI) | payer MEDICARE, SELFPAY ==
--- NOTE | ~2023-06-21 | CT_ITS ---
EXAMINATION: CT chest high resolution wo ma DATE: 06/21/2023 11:22 INDICATION: Interstitial lung disease TECHNIQUE: Computed tomography (CT) of the chest was performed without intravenous contrast. The dose -length product (DLP) was 296.16 mGy-cm. Automated exposure control and iterative reconstruction tech nique were employed. COMPARISON: 11/02/2022 FINDINGS: There is mild atelectasis. There are no definite findings of chronic interstitial lung dise ase. Cardiomegaly is noted. There is a trace pericardial effusion. Calcified bilateral hilar and medi astinal lymph nodes are consistent with old granulomatous disease. No pleural effusion or pneumothora x. There is a 7 mm nodule of the left thyroid lobe. Calcified coronary artery atherosclerosis is note d. There is a 10 mm cyst of the liver. There are large cysts of the left kidney which measure up to 1 5 cm. There are nonobstructing stones of the kidneys. There is a small sliding hiatal hernia. There i s mild thoracic spondylosis. There is a 4.3 cm fusiform aneurysm of the ascending aorta without signi ficant change. IMPRESSION: 1. No specific findings of chronic interstitial lung disease. 2. Fusiform aneurysm of the ascending aorta without significant change measuring 4.3 cm. 3. Cardiomegaly. Reviewed, dictated and finalized at location L. IER PACKER IMPRESSION: 1. No specific findings of chronic interstitial lung disease. 2. Fusiform aneurysm of the ascending aorta without significant change measurin g 4.3 cm. 3. Cardiomegaly.
== END 2023-06-21 10:52 | disposition home or self-care (01) ==
LOC: ANHIMG 10:54
PROVIDERS: PCP Family Medicine Adolescent Medicine; Visit Provider Internal Medicine Cardiovascular Disease
DX: J84.9 Interstitial pulmonary disease, unspecified (principal); I51.7 Cardiomegaly; I71.40 Abdominal aortic aneurysm, without rupture, unspecified
CPT/HCPCS: 71250

== ENCOUNTER 2023-06-25 09:55 | Outpatient (CLI) | payer MEDICARE, SELFPAY ==
--- NOTE | 2023-06-26 15:18 | WPDPFTINT ---
PFT Procedure Performed PFT Procedure Performed Plethysmography (Lung Vol) Diffusing Cap (DLCO) Flow Vol Loop Spirometry w/o Bronchodil PFT Interpretation Lung volumes were measured with the body plethysmography method. The diminished across the board lung volumes are indicative of restrictive respiratory disease. Spirometry showed diminished expiratory flow rates and a normal FEV1 to FVC ratio 67% consistent with restrictive respiratory disease. Lung diffusion capacity is mildly reduced at 64% predicted. The flow-volume loop is unremarkable. In comparison to previous study in September of 2022, the forced vital capacity is now lower by approximately 0.4 L. Impression: Moderate restrictive respiratory disease. Mild reduction in lung diffusion capacity.
== END 2023-06-25 09:56 | disposition home or self-care (01) ==
LOC: ANHPFT 09:57
PROVIDERS: PCP Family Medicine Adolescent Medicine; Visit Provider Internal Medicine Cardiovascular Disease
DX: R94.2 Abnormal results of pulmonary function studies (principal)
CPT/HCPCS: 94375; 94726; 94729

== ENCOUNTER 2023-06-27 01:18 | Day surgery (SDC) | payer MEDICARE, SELFPAY ==
[2023-06-26 14:06] VITALS: BMI 26.7
[2023-06-27] VITALS (20 sets, daily range): BP systolic 118–146; BP diastolic 59–78; PULSE 56–71; RESP 14–19; TEMP 36.4–36.7; O2SAT 97–100; BMI 26.7
[2023-06-27 09:03] LABS: Basophils Percent Auto 0.7 % (0.2-1.2); Eosinophils Absolute Auto 0.4 K/mm3 (0-0.3); Eosinophils Percent Auto 7.8 % (0-4.4); Hematocrit 38.6 % (42.0-52.0); Hemoglobin 12.3 g/dL (14.0-18.0); Immature Granulocyte Absolute 0.02 K/mm3 (0.00-0.031); Immature Granulocyte Percent A 0.4 % (0-0.5); Lymphocytes Absolute Auto 1.26 K/mm3 (0.9-3.2); Lymphocytes Percent Auto 22.4 % (18.3-44.2); Mean Corpuscular HGB Conc 31.9 g/dl (32-36); Mean Corpuscular Hemoglobin 28.1 pg (26-34); Mean Corpuscular Volume 88.1 fl (80-100); Mean Platelet Volume 9.7 fl (7.4-10.4); Monocytes Absolute Auto 0.5 K/mm3 (0.1-0.6); Monocytes Percent Auto 8.5 % (2.6-8.5); Neutrophils Absolute Auto 3.4 K/mm3 (1.3-6.7); Neutrophils Percent Auto 60.2 % (45.5-73.1); Platelet Count Result 149 k/mm3 (150-375); Red Blood Count 4.38 M/mm3 (4.6-6.20); Red Cell Distribution Width 14.6 % (11.5-14.5); White Blood Count 5.6 K/mm3 (4.5-10.0)
[2023-06-27 09:13] LABS: Anion Gap 8 mmol/L (8-16); Blood Urea Nitrogen 25 mg/dL (9-20); Calcium 9.6 mg/dL (8.4-10.2); Carbon Dioxide 22 mmol/L (22-30); Chloride 109 mmol/L (98-107); Estimated CRCL calculation 34 ml/min; Estimated Glomerular Filt Rate 42; Glucose 120 mg/dL (65-110); Sodium 139 mmol/L (137-145)
[2023-06-27] MEDS: SODIUM CHLORIDE 0.9% IV 500 ML 100 ML IV CONT (09:15)
--- NOTE | 2023-06-27 09:52 | WPDMODSED ---
Moderate Sedation Note-Pt Data Patient Data Diagnosis: Coronary artery disease Present Complaint: Coronary artery disease Procedure to be performed/Plan: Coronary angiography, left heart cath, right heart cath, +/- PCI Allergies Allergy/AdvReac Type Severity Reaction Status Date / Time Penicillins Allergy Severe Hives Verified 06/27/23 08:54 Home Medications Medication Instructions Recorded Confirmed Type ascorbic acid (vitamin C) 1,000 mg 1 g PO DAILY 07/27/20 06/27/23 History tablet (Vitamin C) aspirin 81 mg tablet,delayed 81 mg PO HS 07/27/20 06/27/23 History release (Remi Low Dose Aspirin) brinzolamide 1 %-brimonidine 0.2 % 1 drp EACH EYE TID 07/27/20 06/27/23 History eye drops,suspension (Simbrinza) latanoprost 0.005 % eye drops 1 drp RIGHT EYE HS 07/27/20 06/27/23 History vitamin E 400 unit tablet 450 mg PO DAILY 07/27/20 06/27/23 History omeprazole 20 mg tablet,delayed 20 mg PO BID #180 tabs 04/05/23 06/27/23 Rx release atenolol 50 mg tablet 50 mg PO QAM #90 tabs 04/09/23 06/27/23 Rx amlodipine 10 mg tablet 5 mg PO DAILY 04/13/23 06/27/23 History magnesium 200 mg tablet 30 mg PO DAILY 04/13/23 06/27/23 History atorvastatin 40 mg tablet 40 mg PO QAM #90 tabs 04/17/23 06/27/23 Rx folic acid 800 mcg tablet 1 mg PO QAM 04/25/23 06/27/23 History tamsulosin 0.4 mg capsule 0.4 mg PO DAILY #90 caps 04/29/23 06/27/23 Rx carboxymethylcellulose sodium 0.5 1 drp EACH EYE DAILY 06/26/23 06/27/23 History % eye drops in a dropperette cyanocobalamin (vitamin B-12) 500 500 mcg PO DAILY 06/26/23 06/27/23 History mcg tablet multivitamin with minerals-folic 1 tablet PO DAILY 06/26/23 06/27/23 History acid 0.4 mg tablet Current Medications: Active Medications Sodium Chloride (Normal Saline Iv) 500 mls @ 100 mls/hr IV CONT .Q5H EVER Sedation/Anesthesia: No previous sedation/anesthesia problems (including family history). [facility] Past Medical History Medical History BPH (benign prostatic hyperplasia) CKD (chronic kidney disease) Glaucoma Granulomatous lung disease Hyperlipidemia Nephrolithiasis Psoriasis Psoriatic arthritis Rheumatoid arthritis Serology diagnosis Surgical History Surgical History H/O cataract extraction Bilateral with implants H/O hernia repair History of shoulder surgery Family History Family History Father Cerebrovascular accident, Onset Age: 63 Mother Diabetes mellitus Heart disease Social History Social History Social History: The patient lives with his who is his durable power tax attorney for healthcare. The patient stated that he is a DNR. 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 The patient has no children. He used to use chewing tobacco but has not used since 2014. The patient does not use any marijuana or illicit drugs. He denies any alcohol use. Smoking status: Former smoker Smokeless tobacco user: chewing tobacco Second hand tobacco smoke exposure: No Smoking end date: 07/23/14 Additional smoking assessment comments: STATES CHEWED FROM AGE 15 UNTIL QUITTING IN 2015 Alcohol intake: never Substance use: never Substance use type: does not use Lack of Transportation: No Lack of Food: Never True Current Housing: I Have Housing Concerned About Future Housing: No Difficulty Paying Gas/Electric Bills: No Difficulty Paying for Meds: No Currently Unemployed: No Education: High School Diploma/GED Difficulty w/ Childcare or Family Care: No Living arrangements: with family Gender identity (if verbalized by the patient): Male Spiritual care concerns: No Mod Sed Physical Exam Physical Exam Pre Procedural Exam: Normal: Appearance, Lungs, Heart Rate, Heart Rhythm, Neuro Exam, Ext
--- NOTE | 2023-06-27 11:17 | WPDCARDPROC ---
Cardiac Cath Procedure Note Date of procedure:: 06/27/23 Performing physician:: CATHETERIZATION LABORATORY REPORT Procedure Date: 06/27/2022 Vamp Presser: Marino Alba M.D., [facility]? Referring Physician: Naya Watt M.D. ? Anesthesia: Versed and Fentanyl were ordered and given in my presence at 10:18, procedure ended at 11:15. Supervision of nurse monitored moderate sedation with Versed and Fentanyl was provided for 57 minutes. Total of Versed 1mg and Fentanyl 25mcg were administered by the Ammonia Distiller RN Thuy Nayak. Pre-op Diagnosis: Coronary artery disease Post-op Diagnosis: 1. Non-obstructive coronary artery disease 2. Elevated left heart and right heart filling pressures. 3. Preserved cardiac output and cardiac index by Wilian. 4. Isolated postcapillary pulmonary hypertension. Procedure(s): 1. Moderate sedation 2. Ultrasound-guided access of the right common femoral artery 3. Right heart cath 4. Coronary angiography 5. Left heart cath Access Site: Right common femoral artery Brief History and Clinical Indications: Patient is an 83 year old male with coronary artery disease, hypertension, hyperlipidemia, rheumatoid arthritis who is referred for LHC/RHC for dyspnea on exertion. All risks, benefits and alternatives to left heart catheterization with or without percutaneous coronary intervention and right heart catheterization was discussed at length with the patient. Risk of complications including but not limited to bleeding, infection, arrhythmia, stroke, worsening kidney function, blood loss, groin hematoma, limb loss, emergency coronary artery bypass grafting, and even were discussed with the patient and all questions were answered. The patient understood and wished to proceed. Time out called, patient name, date of , medical record number, allergies, procedure performed, identify Vamp Presser, patient and staff member concurred with accurate data, procedure carried on. Findings: LEFT HEART CATHETERIZATION FINDINGS: 1. Left main: The left main coronary artery is widely patent without any significant obstructive disease. 2. Left anterior descending: Heavy calcifications in the proximal and mid LAD. The LAD has mild diffuse disease.. The first diagonal branch has mild diffuse disease. 3. Ramus: Long, small caliber branch with mild diffuse disease. 4. Left circumflex: The left circumflex artery and the main marginal branches have mild diffuse disease without any significant obstructive angiographic disease. 5. Right coronary artery: The RCA has mild diffuse disease without any significant obstructive angiographic disease. The RCA is the dominant vessel. 6. Left ventricle: A. End-diastolic pressure 26 mmHg. B. LV gram deferred. C. No significant gradient across aortic valve on catheter pullback. RIGHT HEART CATHETERIZATION FINDINGS: Pressures (mmHg): RA: 10 RV: 39/13 PA: 41/12 with mean of 26mmHg PCWP: 20 Saturations (%): PA: 72.2% Arterial: 95.5% CO/CI: Wilian CO: 6.6 Wilian CI: 3.2 PVR (MAURICIO): 0.9 Description of Procedure: Informed consent signed and placed in the chart. Patient transferred to laborer salvage room. Prepped and draped in usual sterile fashion. 2% lidocaine injected subcutaneously in right groin area. Micropuncture needle used to access right common femoral artery with Seldinger technique under fluoroscopic and ultrasound guidance. J wire advanced, micropuncture cannula placed. Right iliofemoral angiogram performed, access confirmed and micropuncture cannula exchanged for 5-FR sheath. Right femoral vein was accessed using micropuncture technique. 7-FR sheath placed. 7F Temple-[place] catheter was advanced into the right side of the heart chambers and pressures were measured. 5F FR 4 diagnostic catheter engaged Right Coronary Artery. Given the significant iliac tortuosity, it was difficult to engage the LM with a 5F FL 4 diagnostic catheter or a 5F FL 5 diagnostic ca
== END 2023-06-27 17:40 | disposition home or self-care (01) ==
PROVIDERS: PCP Family Medicine Adolescent Medicine; Visit Provider Internal Medicine
PROC: 4A023N8 Measurement of Cardiac Sampling and Pressure, Bilateral, Percutaneous Approach (ICD-10-PCS; CPT 93453; principal; 2023-06-27 10:00)
DX: I25.10 Atherosclerotic heart disease of native coronary artery without angina pectoris (principal); R06.09 Other forms of dyspnea; I10 Essential (primary) hypertension; E78.5 Hyperlipidemia, unspecified; M06.9 Rheumatoid arthritis, unspecified; I27.20 Pulmonary hypertension, unspecified; I12.9 Hypertensive chronic kidney disease with stage 1 through stage 4 chronic kidney disease, or unspecified chronic kidney disease; N18.9 Chronic kidney disease, unspecified; N40.0 Benign prostatic hyperplasia without lower urinary tract symptoms; H40.9 Unspecified glaucoma; L40.50 Arthropathic psoriasis, unspecified; L40.9 Psoriasis, unspecified; Z87.891 Personal history of nicotine dependence; Z79.82 Long term (current) use of aspirin
CPT/HCPCS: 36415; 80048; 85025; 93460; C1760; C1769; C1887; C1894; G0269; J1644; J2250; J3010; J7040

== ENCOUNTER 2024-05-02 01:40 | Inpatient (IN) | payer MEDICARE, SELFPAY ==
[2024-05-02] VITALS (41 sets, daily range): BP systolic 70–133; BP diastolic 44–89; PULSE 45–90; RESP 17–35; TEMP 36–38.4; O2SAT 91–99; BMI 27.1
--- NOTE | ~2024-05-02 | XR_ITS ---
EXAMINATION: XR chest 1V portable DATE: 05/03/2024 05:51 INDICATION: Septic shock. TECHNIQUE: A single frontal view of the chest was obtained. COMPARISON: Chest single view 05/02/2024, CT abdomen and pelvis 05/02/2024 FINDINGS: There are airspace opacities in the lower lung zones. No pleural effusion or pneumothorax. Cardiomegaly is noted. There are prominent pericardial fat pads. The nasogastric tube tip is beyond t he inferior margin of the radiograph, but at least to the stomach. A left subclavian central venous c atheter is seen with tip in the proximal right atrium. IMPRESSION: 1. Airspace opacities in the lower lung zones with worsening on the left, consistent with atelectasis versus pneumonia. 2. Cardiomegaly. Reviewed, dictated and finalized at location A. BRAKES INSPECTOR IMPRESSION: 1. Airspace opacities in the lower lung zones with worsening on the left, consi stent with atelectasis versus pneumonia. 2. Cardiomegaly.
--- NOTE | ~2024-05-02 | XR_ITS ---
EXAMINATION: XR chest 1V portable DATE: 05/04/2024 05:27 INDICATION: Shock. TECHNIQUE: A single frontal view of the chest was obtained. COMPARISON: Chest single view 05/03/2024 FINDINGS: There are airspace opacities in the lower lung zones. No pleural effusion or pneumothorax. Cardiomegaly is noted. There are prominent pericardial fat pads. The nasogastric tube tip is beyond t he inferior margin of the radiograph, but at least to the stomach. A left subclavian central venous c atheter is seen with tip in the right atrium. IMPRESSION: 1. Stable airspace opacities in the lower lung zones, consistent with atelectasis versus pneumonia. 2. Cardiomegaly. Reviewed, dictated and finalized at location A. ING DIRECTOR IMPRESSION: 1. Stable airspace opacities in the lower lung zones, consistent with atelectas is versus pneumonia. 2. Cardiomegaly.
--- NOTE | ~2024-05-02 | XR_ITS ---
Portable chest x-ray Comparison: 05/06/2024 Clinical History: Shortness of breath Findings: Probable minimal pleural effusions present. Probable minimal bibasilar atelectatic changes or pulmonary edema. Cardiomediastinal silhouette is stable. Bones and soft tissues are unremarkable . Impression: Minimal pleural effusions. Probable minimal bibasilar pulmonary edema/atelectasis, especially left lung base. Correlate clinical ly for pneumonia. Reviewed, dictated and finalized at location . TRUCK OPERATOR Impression: Minimal pleural effusions. Probable minimal bibasilar pulmonary edema/atelectasis, especially left lung ba se. Correlate clinically for pneumonia.
--- NOTE | ~2024-05-02 | XR_ITS ---
CHEST RADIOGRAPH CLINICAL HISTORY: Shortness of breath. COMPARISON: 05/04/2024. TECHNIQUE: Single portable view of the chest. FINDINGS Redemonstration of a left subclavian central venous port catheter with its tip projecting over the ri ght atrium The remainder of the cardiomediastinal silhouette is otherwise unremarkable. Redemonstration of consolidation of the left lung base with a small associated pleural effusion. Interval development of a right-sided pleural effusion, an interval change from prior examination. Interval removal of a nasogastric tube, seen on earlier study. Visualized osseous structures and soft tissues are unremarkable. IMPRESSION: Left basilar consolidation with small bilateral pleural effusions. Reviewed, dictated and finalized at location A. CLE COORDINATOR
--- NOTE | ~2024-05-02 | XR_ITS ---
Upright portable view of the abdomen Clinical history: NG tube placement Findings: NG tube is in satisfactory position. Dilated small bowel loops suggest small bowel obstruct ion. No free air evident. No abnormal mass lesion or calcification is seen. Osseous structures are in tact. Impression: NG tube in satisfactory position. Suspected small bowel obstruction. Reviewed, dictated and finalized at [facility]. ICE ASSISTANT Impression: NG tube in satisfactory position. Suspected small bowel obstruction.
--- NOTE | ~2024-05-02 | US_ITS ---
EXAMINATION: US scrotum doppler DATE: 05/16/2024 14:58 INDICATION: Scrotal swelling TECHNIQUE: Testicular sonogram utilizing grayscale and Doppler COMPARISON: None. FINDINGS: The right testis measures 4.9 x 3.5 x 2.9 cm. The left testis measures 4.2 x 3.0 x 3.2 cm. Symmetric normal grayscale appearance to both testes. There is normal vascular flow to both testes. The right e pididymis is normal with normal vascular flow. The left epididymis is normal with normal vascular yury w. Moderate-sized bilateral hydroceles, right greater than left. There is also diffuse scrotal edema. IMPRESSION: 1. Bilateral scrotal edema and moderate bilateral hydroceles. Normal testes and epididymides. Reviewed, dictated and finalized at location B. TIONAL REHABILITATION SUPERVISOR IMPRESSION: 1. Bilateral scrotal edema and moderate bilateral hydroceles. Normal testes an d epididymides.
--- NOTE | ~2024-05-02 | CT_ITS ---
EXAMINATION: CT abdomen pelvis wo con DATE: 05/02/2024 17:57 INDICATION: Abdominal distention. Incarcerated inguinal hernia. TECHNIQUE: Computed tomography (CT) of the abdomen and pelvis was performed without intravenous contr ast. Automated exposure control and iterative reconstruction technique were employed. The dose-length product was 1340.08 mGy-cm. COMPARISON: CT abdomen and pelvis 05/02/24 FINDINGS: The visualized portions of the lung bases demonstrate moderate atelectasis. Calcified right hilar lymph nodes are consistent with old granulomatous disease. There is a trace right pleural effu martha. Cardiomegaly is noted. There is a trace pericardial effusion. There are coronary artery calcifi cations. The nasogastric tube tip is in the stomach. There is a moderate-sized sliding hiatal hernia. There are cysts in the liver measuring up to 19 mm. The gallbladder, pancreas, and adrenal glands ar e normal. There is cortical thinning of right kidney. There is a persistent right-sided contrast neph rogram, consistent with decreased kidney function. There is a 14 mm cyst in right kidney. There are g reater than 10 stones in right kidney measuring up to 7 mm. There is severe atrophy of left kidney. T here is severe left hydronephrosis. There are multiple stones in left kidney including a 2.9 cm stone in left renal pelvis. There is a Vann catheter in expected position. The prostate is mildly enlarge d. There is diverticulosis of the colon without evidence of diverticulitis. There is a left inguinal hernia containing small bowel. Small bowel is dilated proximal to the hernia. There is a small volume of ascites. There are changes of right inguinal hernia repair. There is severe lumbar spondylosis an d mild thoracic spondylosis. IMPRESSION: 1. Small bowel obstruction secondary to a left inguinal hernia containing small bowel. 2. Small volume of ascites. 3. Moderate-sized sliding hiatal hernia. 4. Left kidney stones including a stone in the renal pelvis with chronic severe hydronephrosis and se cristian kidney atrophy. 5. Nonobstructing right kidney stones. Reviewed, dictated and finalized at location A. CLERK IMPRESSION: 1. Small bowel obstruction secondary to a left inguinal hernia containing small bowel. 2. Small volume of ascites. 3. Moderate-sized sliding hiatal hernia. 4. Left kidney stones including a stone in the renal pelvis with chronic severe hydronephrosis and severe kidney atrophy. 5. Nonobstructing right kidney stones.
--- NOTE | ~2024-05-02 | CT_ITS ---
CT of the Abdomen and Pelvis: Indication: Abdominal pain Technique: 2.5 mm axial scans were obtained through the abdomen and pelvis following intravenous adm inistration of 100 cc of Omnipaque 350. Dose reduction technique was used on this scan by utilizing a utomated exposure control and iterative reconstruction technique. The dose-length product (DLP) was 1 303.56 mGy-cm. Findings: Scans through the lung bases demonstrated partial lingular atelectasis. Several small hepatic cysts are present. The spleen, pancreas, gallbladder, adrenals and adrenal glan ds are within normal limits. Multiple nonobstructing right renal stones are present, measuring up to 11 mm in largest size. No right ureteral stone or right hydronephrosis. Left kidney is markedly enlar ged measuring 22 cm in length, with marked, severe chronic hydronephrosis and severe diffuse cortical thinning. There is a large, presumably chronically obstructing stone at the left renal pelvis region measuring 3.0 x 2.0 cm in size. Additional smaller nonobstructing left renal stones are also present . There is mild fullness of the proximal to mid left ureter without ureteral stone present. No eviden ce of aortic aneurysm. No lymphadenopathy. There are numerous dilated small bowel loops. Left inguinal hernia contains a loop of small bowel, wi th transition point as the small bowel exits the hernia, with decompression of distal small bowel and large bowel. Fluid is also present in the hernia sac. Images through the pelvis were performed. Urinary bladder unremarkable. Prostate gland is enlarged. S mall amounts of ascites or present scattered in the abdomen/pelvis. Impression: Small bowel obstruction, with transition point related to left inguinal hernia which contains a loop of small bowel as well as ascitic fluid. Severe chronic obstructive uropathy of the left kidney, with enlargement of the left kidney, severe h ydronephrosis and severe diffuse cortical thinning. Additional bilateral nonobstructing renal stones, as detailed above. Small amount of ascites. Prostate gland. Reviewed, dictated and finalized at location M. NCT POLITICAL SCIENCE INSTRUCTOR Impression: Small bowel obstruction, with transition point related to left inguinal hernia which contains a loop of small bowel as well as ascitic fluid. 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 Additional bilateral nonobstructing renal stones, as detailed above. Small amount of ascites. Prostate gland.
--- NOTE | ~2024-05-02 | XR_ITS ---
Portable chest x-ray Comparison: 09/05/2022 Clinical History: Line placement Findings: NG tube and left-sided subclavian line are in satisfactory positions. There is discoid rig ht basilar atelectasis. Lungs are otherwise clear. No pneumothorax. Cardiomediastinal silhouette is stable. Bones and soft tissues are unremarkable. Impression: Support tubes, as above. No pneumothorax. Discoid right basilar atelectasis. Stable cardiomegaly. Reviewed, dictated and finalized at location . ER DELIVERY Impression: Support tubes, as above. No pneumothorax. Discoid right basilar atelectasis. Stable cardiomegaly.
--- NOTE | ~2024-05-02 | US_ITS ---
EXAMINATION: US renal BI DATE: 05/02/2024 15:24 INDICATION: Acute kidney injury. TECHNIQUE: Multiple ultrasound grayscale images of the kidneys were obtained. COMPARISON: CT abdomen and pelvis 05/02/2024, 07/15/14 FINDINGS: The right kidney measures 11.0 x 4.6 x 5.1 cm. The left kidney measures 15.5 x 1.0 x 2.1 cm. There is a nonobstructing stone in right kidney. There is severe atrophy of left kidney. There is severe left hydronephrosis. The bladder is normal. IMPRESSION: 1. Chronic severe left hydronephrosis. Severe left kidney atrophy. 2. Nonobstructing right kidney stone. Reviewed, dictated and finalized at location A. MOLDER FIBERGLASS
--- NOTE | 2024-05-02 01:51 | ECG_ITS ---
Test Date: 2024-05-02 02:01:35 Measurements Intervals Hoffmeister Rate: 83 P: 60 OH: 200 QRS: -46 QRSD: 86 T: 60 QT: 358 QTc: 422 Interpretive Statements SINUS RHYTHM WITH OCCASIONAL ECTOPIC PREMATURE COMPLEXES LEFT ANTERIOR FASCICULAR BLOCK [QRS AXIS <= -45, QR IN I, RS IN II] POSSIBLE ANTERIOR MYOCARDIAL INFARCTION , PROBABLY OLD [30 ms Q WAVE IN V3/V4, OR R < 0.2 mV IN V4] No previous ECG available for comparison Electronically Signed On 05-02-2024 12:19:58 ACCOUNTING TEACHER by Marino Alba M.D.
[2024-05-02 02:20] LABS: Basophils Percent Auto 0.6 % (0.2-1.2); Hematocrit 47.9 % (42.0-52.0); Hemoglobin 15.3 g/dL (14.0-18.0); Immature Granulocyte Absolute 0.01 K/mm3 (0.00-0.031); Immature Granulocyte Percent A 0.2 % (0-0.5); Lymphocytes Absolute Auto 0.54 K/mm3 (0.9-3.2); Lymphocytes Percent Auto 10.9 % (18.3-44.2); Mean Corpuscular HGB Conc 31.9 g/dl (32-36); Mean Corpuscular Hemoglobin 28.3 pg (26-34); Mean Corpuscular Volume 88.5 fl (80-100); Mean Platelet Volume 10.3 fl (7.4-10.4); Monocytes Absolute Auto 0.3 K/mm3 (0.1-0.6); Monocytes Percent Auto 6.2 % (2.6-8.5); Neutrophils Absolute Auto 4.1 K/mm3 (1.3-6.7); Neutrophils Percent Auto 82.1 % (45.5-73.1); Platelet Count Result 243 k/mm3 (150-375); Red Blood Count 5.41 M/mm3 (4.6-6.20); Red Cell Distribution Width 14.7 % (11.5-14.5)
--- NOTE | 2024-05-02 02:21 | ED.ABDPAIN ---
HPI - Abdominal Pain General Chief Complaint: Abdominal Pain <Katherine Lizarraga PA-C - Last Filed: 05/03/24 14:16> Stated Complaint: Abdominal pain and vomiting <Katherine Lizarraga PA-C - Last Filed: 05/03/24 14:16> Time Seen by Provider: 05/02/24 02:26 <Katherine Lizarraga PA-C - Last Filed: 05/03/24 14:16> Source: patient <Katherine Lizarraga PA-C - Last Filed: 05/03/24 14:16> Mode of arrival: wheelchair <Katherine Lizarraga PA-C - Last Filed: 05/03/24 14:16> Limitations: no limitations <Katherine Lizarraga PA-C - Last Filed: 05/03/24 14:16> History of Present Illness HPI narrative: This is a 83 year old male that presents to the ER for abdominal pain worsening over the last couple of days. Reports associated nausea and vomiting. Denies fevers. <Katherine Lizarraga PA-C - Last Filed: 05/03/24 14:16> 83-year-old male presenting ED with abdominal pain nausea vomiting. Patient says that he was loading firewood into his fireplace about a month ago and felt his left inguinal hernia bulge. Since then he has been having increased abdominal discomfort. Over the last 2 days he has developed a large distended abdomen and nausea vomiting. Denies fever chills. Last bowel movement was yesterday. he has not passed gas today. <Cordell Hoskins MD - Last Filed: 05/02/24 05:56> Related Data Home Medications: Home Medications ?Medication ?Instructions ?Recorded ?Confirmed ?Last Taken ?Type ascorbic acid (vitamin C) 1,000 mg 1 g PO DAILY 07/27/20 05/02/24 06/27/23 History tablet (Vitamin C) aspirin 81 mg tablet,delayed 81 mg PO HS 07/27/20 05/02/24 06/27/23 History release (Remi Low Dose Aspirin) brinzolamide 1 %-brimonidine 0.2 % 1 drp EACH EYE TID 07/27/20 05/02/24 06/27/23 History eye drops,suspension (Simbrinza) latanoprost 0.005 % eye drops 1 drp RIGHT EYE HS 07/27/20 05/02/24 06/27/23 History vitamin E 400 unit tablet 450 mg PO DAILY 07/27/20 05/02/24 06/27/23 History amlodipine 10 mg tablet 5 mg PO DAILY 04/13/23 05/02/24 06/27/23 History magnesium 200 mg tablet 25 mg PO HS 04/13/23 05/02/24 Unknown History folic acid 800 mcg tablet 1 mg PO QAM 04/25/23 05/02/24 06/27/23 History cyanocobalamin (vitamin B-12) 500 1,000 mcg PO DAILY 06/26/23 05/02/24 06/27/23 History mcg tablet multivitamin with minerals-folic 1 tablet PO DAILY 06/26/23 05/02/24 06/27/23 History acid 0.4 mg tablet carboxymethylcellulose sodium 0.5 1 drp EACH EYE TID 07/12/23 05/02/24 Unknown History % eye drops in a dropperette coQ10 (ubiquinol) 100 mg capsule 200 mg PO HS 08/08/23 05/02/24 Unknown History (Qunol Silas CoQ10) ferrous sulfate 325 mg (65 mg 325 mg PO DAILY 08/08/23 05/02/24 Unknown History iron) tablet (Feosol) albuterol sulfate 90 mcg/actuation 2 puff inhalation .q6hr PRN 05/02/24 05/02/24 Unknown History aerosol inhaler wheezing apple cider vinegar 250 mg 250 mg PO HS 05/02/24 05/02/24 Unknown History chewable tablet budesonide 160 mcg-glycopyr 9 2 inh inhalation BID 05/02/24 05/02/24 Unknown History mcg-formot 4.8 mcg/actuation HFA inhaler (Breztri Aerosphere) fluticasone propionate 50 1 spray intranasal HS PRN nasal 05/02/24 05/02/24 Unknown History mcg/actuation nasal congestion spray,suspension (24 Hour Allergy Relief) meclizine 25 mg tablet 25 mg PO QID PRN dizziness 05/02/24 05/02/24 Unknown History tamsulosin 0.4 mg capsule 0.4 mg PO QHS 05/02/24 05/02/24 Unknown History vit C 250 mg-vit E 90 mg-zinc 10 1 cap PO QAM AND QHS 05/02/24 05/02/24 Unknown History mg-copper 1 [id number] capsule ([facility] Vitamin-Mineral) <Katherine Lizarraga PA-C - Last Filed: 05/03/24 14:16> Allergies/Adverse Reactions: Allergies Allergy/AdvReac Type Severity Reaction Status Date / Time Penicillins Allergy Severe Hives Verified 05/02/24 03:01 <Katherine Lizarraga PA-C - Last Filed: 05/03/24 14:16> Review of Systems Review of Systems: CONSTITUTIONAL: Denies fever GASTROINTESTINAL: Reports abdominal pain, nausea, vomiting GENITOURINARY: Denies dysuria <Katherine Lizarraga PA-C - Last Filed: 05/03/24 14:16> All systems reviewed & are unremarkable except as noted in HPI and below <Katherine Lizarraga PA-C - Last Filed: 05/03/24 14:16> [facility] Past Medical History Medical History: Medical History History of kidney stones 1966,1976 removal CKD (chronic kidney disease) Granulomatous lung disease Rheumatoid arthritis Serology diagnosis Glaucoma Nephrolithiasis BPH (benign prostatic hyperplasia) Psoriatic arthritis Psoriasis Hyperlipidemia <Katherine Lizarraga PA-C - Last Filed: 05/03/24 14:16> Surgical History Surgical History: Surgical History History of amputation of toe 03/2023 middle toe right foot 1st section removed H/O cataract extraction Bilateral with implants History of shoulder surgery both shoulders H/O hernia repair <Katherine Lizarraga PA-C - Last Filed: 05/03/24 14:16> Family History Family History: Family History Father Cerebrovascular accident, Onset Age: 63 Mother Diabetes mellitus Heart disease <Katherine Lizarraga PA-C - Last Filed: 05/03/24 14:16> Social History Social History: Social History Social History: Lives with his who is his durable power insurance attorney for healthcare. The patient has no children. He used to use chewing tobacco but has not used since 2015. No alcohol or drug use Code status - Full Surrogate decision maker - Smoking status: Never smoker Smokeless tobacco user: chewing tobacco Second hand tobacco smoke exposure: No Smoking end date: 07/23/14 Additional smoking assessment comments: STATES CHEWED FROM AGE 15 UNTIL QUITTING IN 2015 Alcohol intake: never Substance use: never Substance use type: does not use Do You Feel Safe in your Home?: Yes Lack of Transportation: No Lack of Food: Never True Current Housing: I Have Housing Concerned About Future Housing: No Difficulty Paying Gas/Electric Bills: No Difficulty Paying for Meds: No Currently Unemployed: No Education: Trade/Vocational Certificate Difficulty w/ Childcare or Family Care: No Living arrangements: with family Gender identity (if verbalized by the patient): Male Spiritual care concerns: No <Katherine Lizarraga PA-C - Last Filed: 05/03/24 14:16> Exam Narrative: GENERAL: Ill-appearing, well-nourished, and in no acute distress. HEAD: Normocephalic, atraumatic. EYES: EOMI. ENT: Nares clear, no rhinorrhea or epistaxis. Mucous membranes moist. CHEST: Clear to auscultation. No respiratory distress. No wheezes rales or rhonchi HEART: Regular rate and rhythm. No murmur heard. Normal peripheral pulses. ABDOMEN: Distended, tender to palpation throughout the abdomen, normal active bowel sounds. EXTREMITIES: Normal range of motion. No edema. SKIN: Warm, dry, no rash. NEURO: No focal deficits. Alert and oriented x3. PSYCH: Normal mood and affect <Katherine Lizarraga PA-C - Last Filed: 05/03/24 14:16> Procedures Central Line Placement Left SC: Central Line Date: 05/02/24 <Cordell Hoskins MD - Last Filed: 05/02/24 05:56> Discussed w/ the patient/family/POA,the placement of a central venous catheter, including its clinical necessity/indication & associated potential risks, benifits and alternatives.: Yes <Cordell Hoskins MD - Last Filed: 05/02/24 05:56> The patient/family/POA understand(s) and acknowledge(s) the need to proceed with central venous catheter insertion as an important element of the patient's clinical management.: Yes <Cordell Hoskins MD - Last Filed: 05/02/24 05:56> Time Out Performed: Yes <Cordell Hoskins MD - Last Filed: 05/02/24 05:56> Patient Placed on Monitor/Pulse Ox: Yes <Cordell Hoskins MD - Last Filed: 05/02/24 05:56> Max. Sterile Barrier Technique: Caps and large sterile sheet <Cordell Hoskins MD - Last Filed: 05/02/24 05:56> Central Line Prep: 2% chlorhexidine scrub and sterile drapes applied <Cordell Hoskins MD - Last Filed: 05/02/24 05:56> Technique: seldinger <Cordell Hoskins MD - Last Filed: 05/02/24 05:56> Local Anesthetic: lidocaine 1% and with epi <Cordell Hoskins MD - Last Filed: 05/02/24 05:56> Ultrasound Used for Placement: No <Cordell Hoskins MD - Last Filed: 05/02/24 05:56> Central Line Lumen Inserted: triple <Cordell Hoskins MD - Last Filed: 05/02/24 05:56> Post Procedure: sutured in place, good blood return and all ports aspirated, flushed, capped <Cordell Hoskins MD - Last Filed: 05/02/24 05:56> Post Procedure X-Ray: tip of catheter in good position <Cordell Hoskins MD - Last Filed: 05/02/24 05:56> Patient Tolerated Procedure: well <Cordell Hoskins MD - Last Filed: 05/02/24 05:56> Complications: none <Cordell Hoskins MD - Last Filed: 05/02/24 05:56> Course Vital Signs Vital signs: Vital Signs Temperature 96.8 F L 05/02/24 01:46 Pulse Rate 45 L 05/02/24 01:46 Respiratory Rate 24 H 05/02/24 01:46 Blood Pressure 111/89 05/02/24 01:46 Pulse Oximetry 94 05/02/24 01:46 Oxygen Delivery Room Air 05/02/24 01:46 Temperature 98.0 F 05/03/24 13:00 Pulse Rate 100 05/03/24 13:54 Respiratory Rate 17 05/03/24 13:00 Blood Pressure 110/63 05/03/24 13:54 Pulse Oximetry 91 05/03/24 13:00 Oxygen Delivery Nasal Cannula 05/03/24 13:00 Oxygen Flow Rate 4 05/03/24 13:00 Fraction of Inspired Oxygen 28 05/02/24 08:44 <Katherine Lizarraga PA-C - Last Filed: 05/03/24 14:16> Vital Signs Temperature 96.8 F L 05/02/24 01:46 Pulse Rate 45 L 05/02/24 01:46 Respiratory Rate 24 H 05/02/24 01:46 Blood Pressure 111/89 05/02/24 01:46 Pulse Oximetry 94 05/02/24 01:46 Oxygen Delivery Room Air 05/02/24 01:46 Temperature 98.0 F 05/03/24 13:00 Pulse Rate 100 05/03/24 13:54 Respiratory Rate 17 05/03/24 13:00 Blood Pressure 110/63 05/03/24 13:54 Pulse Oximetry 91 05/03/24 13:00 Oxygen Delivery Nasal Cannula 05/03/24 13:00 Oxygen Flow Rate 4 05/03/24 13:00 Fraction of Inspired Oxygen 28 05/02/24 08:44 <Cordell Hoskins MD - Last Filed: 05/02/24 05:56> MDM - Abdominal Pain MDM Narrative Medical decision making narrative: -Course: 83-year-old male presenting with a large distended abdomen. Point of care ultrasound showed multiple distended loops of fluid-filled bowel which are consistent with bowel obstruction. NG tube placed. 1500 cc drainage of fecal/gastric contents. Patient given 3 L fluid resuscitation while awaiting CT scan which confirmed a small bowel obstruction due to a left inguinal hernia. Left inguinal hernia was reducible but would quickly just bulge back out. Despite fluid resuscitation the patient became hypotensive. Left subclavian line was placed the patient was started on norepinephrine and maintenance fluids. Patient started on cefepime and Flagyl due to penicillin allergy. Dr. Phillips was contacted and is aware of the patient. Patient was discussed with Dr. Delvalle and Dr. Guaman. Patient will be placed in the ICU for further management. Patient is DNR/DNI. Medications okay. -DDX includes but is not limited to: SBO, Incarcerated hernia, sepsis -Co-morbidities complicating care: hypertension, high cholesterol -Independent interpretation of studies: white count 5.0, hemoglobin 15.8 initial lactic 4.8, repeat is pending BUN is 50, creatinine 2.5 from a baseline of about 1.5 imaging reviewed -Discussion of Management/Consultants:Mook Phillips Sahni -Shared decision making / Disposition: ICU <Cordell Hoskins MD - Last Filed: 05/02/24 05:56> Lab Data Result diagrams: 05/03/24 04:50 05/03/24 04:49 <Katherine Lizarraga PA-C - Last Filed: 05/03/24 14:16> Labs: Lab Results 05/02/24 05/02/24 05/02/24 Range/Units 02:15 03:04 05:46 WBC 5.0 (4.5-10.0) K/mm3 RBC 5.41 (4.6-6.20) M/mm3 Hgb 15.3 D (14.0-18.0) g/dL Hct 47.9 (42.0-52.0) % MCV 88.5 (80-100) fl MCH 28.3 (26-34) pg MCHC 31.9 L (32-36) g/dl RDW 14.7 H (11.5-14.5) % Plt Count 243 D (150-375) k/mm3 MPV 10.3 (7.4-10.4) fl Immature Gran % (Auto) 0.2 (0-0.5) % Neut % (Auto) 82.1 H (45.5-73.1) % Lymph % (Auto) 10.9 L (18.3-44.2) % [place] % (Auto) 6.2 (2.6-8.5) % Eos % (Auto) 0.0 (0-4.4) % Baso % (Auto) 0.6 (0.2-1.2) % Lymph # (Auto) 0.54 L (0.9-3.2) K/mm3 [place] # (Auto) 0.3 (0.1-0.6) K/mm3 Eos # (Auto) 0.0 (0-0.3) K/mm3 Baso # (Auto) 0.0 (0.0-0.1) K/mm3 Abs Immat Gran (auto) 0.01 (0.00-0.031) K/mm3 Absolute Neuts (auto) 4.1 (1.3-6.7) K/mm3 Absolute Nucleated RBC 0.000 (0.0-0.012) K/mm3 Nucleated RBC % 0.0 (0.0-0.2) % Platelet Estimate Adequate (Adequate) Anisocytosis 1+ Ovalocytes 1+ [place] Cells 1+ Schistocytes None seen Sodium 141 (137-145) mmol/L Potassium 4.7 (3.4-5.0) mmol/L Chloride 110 H (98-107) mmol/L Carbon Dioxide 15 L (22-30) mmol/L Anion Gap 16 H (4-12) mmol/L BUN 49 H D (9-20) mg/dL Creatinine 2.50 H (0.7-1.3) mg/dL Estim Creat Clear Calc Not Reportable Estimated GFR 25 L (59 - ) Glucose 150 H (65-110) mg/dL Lactic Acid 4.8 H* 1.4 (0.7-2.0) mmol/L Calcium 9.7 (8.4-10.2) mg/dL Total Bilirubin 1.1 (0.2-1.3) mg/dL AST 29 (17-59) U/L ALT 23 (6-50) U/L Alkaline Phosphatase 59 (38-126) U/L Total Protein 8.0 (6.3-8.2) g/dL Albumin 4.8 (3.5-5.1) g/dL Lipase 45 (23-300) U/L Urine Color Dark yellow (Yellow) Urine Appearance Cloudy H (Clear) Urine pH 5.0 (5.0-9.0) Ur Specific [place] 1.021 (1.001-1.035) Urine Protein 1+ H (Negative) mg/dL Urine Glucose (UA) Negative (Negative) mg/dL Urine Ketones Negative (Negative) mg/dL Ur Blood (Man) Negative (Negative) Urine Nitrate Negative (Negative) Urine Bilirubin Negative (Negative) Urine Urobilinogen 0.2 (<2.0) mg/dL Add Ur Microanalysis Reviewed Leukocyte Esterase Rfl Trace H (Negative) ZAID/UL Urine RBC 0-2 (0-2) /hpf Urine WBC 0-5 (0-3) /hpf Ur Squamous Epith Cells None seen (Few) /hpf Urine Bacteria None seen /hpf Urine Casts 3-5 Urine Mucus Present /lpf <Katherine Lizarraga PA-C - Last Filed: 05/03/24 14:16> Lab Results 05/02/24 05/02/24 05/02/24 Range/Units 02:15 03:04 05:46 WBC 5.0 (4.5-10.0) K/mm3 RBC 5.41 (4.6-6.20) M/mm3 Hgb 15.3 D (14.0-18.0) g/dL Hct 47.9 (42.0-52.0) % MCV 88.5 (80-100) fl MCH 28.3 (26-34) pg MCHC 31.9 L (32-36) g/dl RDW 14.7 H (11.5-14.5) % Plt Count 243 D (150-375) k/mm3 MPV 10.3 (7.4-10.4) fl Immature Gran % (Auto) 0.2 (0-0.5) % Neut % (Auto) 82.1 H (45.5-73.1) % Lymph % (Auto) 10.9 L (18.3-44.2) % Sterling % (Auto) 6.2 (2.6-8.5) % Eos % (Auto) 0.0 (0-4.4) % Baso % (Auto) 0.6 (0.2-1.2) % Lymph # (Auto) 0.54 L (0.9-3.2) K/mm3 Sterling # (Auto) 0.3 (0.1-0.6) K/mm3 Eos # (Auto) 0.0 (0-0.3) K/mm3 Baso # (Auto) 0.0 (0.0-0.1) K/mm3 Abs Immat Gran (auto) 0.01 (0.00-0.031) K/mm3 Absolute Neuts (auto) 4.1 (1.3-6.7) K/mm3 Absolute Nucleated RBC 0.000 (0.0-0.012) K/mm3 Nucleated RBC % 0.0 (0.0-0.2) % Platelet Estimate Adequate (Adequate) Anisocytosis 1+ Ovalocytes 1+ [place] Cells 1+ Schistocytes None seen Sodium 141 (137-145) mmol/L Potassium 4.7 (3.4-5.0) mmol/L Chloride 110 H (98-107) mmol/L Carbon Dioxide 15 L (22-30) mmol/L Anion Gap 16 H (4-12) mmol/L BUN 49 H D (9-20) mg/dL Creatinine 2.50 H (0.7-1.3) mg/dL Estim Creat Clear Calc Not Reportable Estimated GFR 25 L (59 - ) Glucose 150 H (65-110) mg/dL Lactic Acid 4.8 H* 1.4 (0.7-2.0) mmol/L Calcium 9.7 (8.4-10.2) mg/dL Total Bilirubin 1.1 (0.2-1.3) mg/dL AST 29 (17-59) U/L ALT 23 (6-50) U/L Alkaline Phosphatase 59 (38-126) U/L Total Protein 8.0 (6.3-8.2) g/dL Albumin 4.8 (3.5-5.1) g/dL Lipase 45 (23-300) U/L Urine Color Dark yellow (Yellow) Urine Appearance Cloudy H (Clear) Urine pH 5.0 (5.0-9.0) Ur Specific [place] 1.021 (1.001-1.035) Urine Protein 1+ H (Negative) mg/dL Urine Glucose (UA) Negative (Negative) mg/dL Urine Ketones Negative (Negative) mg/dL Ur Blood (Man) Negative (Negative) Urine Nitrate Negative (Negative) Urine Bilirubin Negative (Negative) Urine Urobilinogen 0.2 (<2.0) mg/dL Add Ur Microanalysis Reviewed Leukocyte Esterase Rfl Trace H (Negative) ZAID/UL Urine RBC 0-2 (0-2) /hpf Urine WBC 0-5 (0-3) /hpf Ur Squamous Epith Cells None seen (Few) /hpf Urine Bacteria None seen /hpf Urine Casts 3-5 Urine Mucus Present /lpf <Cordell Hoskins MD - Last Filed: 05/02/24 05:56> Imaging Data Radiologist's impression: ITS Impressions Abdomen X-Ray 05/02/24 06:01 Impression: NG tube in satisfactory position. Suspected small bowel obstruction. Renal Ultrasound 05/02/24 15:30 IMPRESSION: 1. Chronic severe left hydronephrosis. Severe left kidney atrophy. 2. Nonobstructing right kidney stone. Abdomen/Pelvis CT 05/02/24 18:09 IMPRESSION: 1. Small bowel obstruction secondary to a left inguinal hernia containing small bowel. 2. Small volume of ascites. 3. Moderate-sized sliding hiatal hernia. 4. Left kidney stones including a stone in the renal pelvis with chronic severe hydronephrosis and severe kidney atrophy. 5. Nonobstructing right kidney stones. Chest X-Ray 05/03/24 05:58 IMPRESSION: 1. Airspace opacities in the lower lung zones with worsening on the left, consistent with atelectasis versus pneumonia. 2. Cardiomegaly. <Katherine Lizarraga PA-C - Last Filed: 05/03/24 14:16> ITS Impressions Abdomen X-Ray 05/02/24 06:01 Impression: NG tube in satisfactory position. Suspected small bowel obstruction. Renal Ultrasound 05/02/24 15:30 IMPRESSION: 1. Chronic severe left hydronephrosis. Severe left kidney atrophy. 2. Nonobstructing right kidney stone. Abdomen/Pelvis CT 05/02/24 18:09 IMPRESSION: 1. Small bowel obstruction secondary to a left inguinal hernia containing small bowel. 2. Small volume of ascites. 3. Moderate-sized sliding hiatal hernia. 4. Left kidney stones including a stone in the renal pelvis with chronic severe hydronephrosis and severe kidney atrophy. 5. Nonobstructing right kidney stones. Chest X-Ray 05/03/24 05:58 IMPRESSION: 1. Airspace opacities in the lower lung zones with worsening on the left, consistent with atelectasis versus pneumonia. 2. Cardiomegaly. <Cordell Hoskins MD - Last Filed: 05/02/24 05:56> Critical Care Time Critical Care Time Critical Care Time: Yes <Cordell Hoskins MD - Last Filed: 05/02/24 05:56> Total Critical Care Time: 35 <Cordell Hoskins MD - Last Filed: 05/02/24 05:56> Discharge Plan Discharge Clinical Impression: SBO (small bowel obstruction), Shock Inguinal hernia Qualifiers: Obstruction and gangrene presence: with obstruction but without gangrene Laterality: unilateral Recurrence: not specified as recurrent Qualified Code(s): K40.30 - Unilateral inguinal hernia, with obstruction, without gangrene, not specified as recurrent <Katherine Lizarraga PA-C - Last Filed: 05/03/24 14:16> Patient Disposition: Still a Patient <Katherine Lizarraga PA-C - Last Filed: 05/03/24 14:16> Condition: Serious <Katherine Lizarraga PA-C - Last Filed: 05/03/24 14:16>
[2024-05-02 02:34] LABS: Alanine Aminotransferase 23 U/L (6-50); Albumin Level 4.8 g/dL (3.5-5.1); Alkaline Phosphatase 59 U/L (38-126); Anion Gap 16 mmol/L (4-12); Aspartate Amino Transferase 29 U/L (17-59); Bilirubin,Total 1.1 mg/dL (0.2-1.3); Blood Urea Nitrogen 49 mg/dL (9-20); Calcium 9.7 mg/dL (8.4-10.2); Carbon Dioxide 15 mmol/L (22-30); Chloride 110 mmol/L (98-107); Estimated Glomerular Filt Rate 25; Glucose 150 mg/dL (65-110); Lipase 45 U/L (23-300); Potassium 4.7 mmol/L (3.4-5.0); Sodium 141 mmol/L (137-145)
[2024-05-02] MEDS: PANTOPRAZOLE SODIUM IV 40 MG VIAL IV PUSH ×2 (02:40→10:21)
[2024-05-02] MEDS: ONDANSETRON INJ 4 MG/2 ML VIAL IV PUSH ×3 (02:40→16:02)
[2024-05-02 02:41] LABS: Anisocytosis 1+; Burr Cells 1+; Ovalocytes 1+; Platelet Estimate Adequate (Adequate); Schistocytes None Seen
[2024-05-02] MEDS: SODIUM CHLORIDE 0.9% IV 3,000 ML 999 ML IV CONT (02:56)
[2024-05-02] MEDS: CEFEPIME 2 GM/NS 50 ML 2 GM/50 ML BAG IVPB (02:58)
[2024-05-02 03:22] LABS: Lactic Acid Reflex 4.8 mmol/L (0.7-2.0)
[2024-05-02] MEDS: metroNIDAZOLE 500 MG/ISO 100ML 500 MG/100 ML BAG 100 MG IVPB ×3 (03:33→20:46)
[2024-05-02 03:49] LABS: Add Urine Microscopic? YES; Appearance Urine Cloudy (Clear); Bacteria Urine None Seen /hpf; Bilirubin Urine Negative (Negative); Blood Urine Negative (Negative); Color Urine Dark Yellow (Yellow); Glucose Urine UA Negative (Negative); Ketones Urine Negative (Negative); Leukocyte Esterase Ur Trace LEU/UL (Negative); Mucus Urine Present /lpf; Need Manual Microscopic Reviewed; Nitrate Urine Negative (Negative); Protein Urine 1+ mg/dL (Negative); RBC Urine 0-2 /hpf (0-2); Specific Grav Ur 1.021 (1.001-1.035); Squamous Epithelial Cell Urine None Seen /hpf (Few); Urobilinogen Urine 0.2 mg/dL (<2.0); WBC Urine 0-5 /hpf (0-3)
[2024-05-02] MEDS: SODIUM CHLORIDE 0.9% IV 1,000 ML 125 ML IV CONT (04:02)
--- NOTE | 2024-05-02 04:03 | PC.NURSE ---
Patient's new bp 92/55, notified EDP Dr. Hoskins who VRBO NS at 125mL/hr.
[2024-05-02] MEDS: NOREPINEPHRINE 8 MG/D5W 250 ML 8 MG/250 ML BAG 9.38 MG IV CONT (04:12)
--- NOTE | 2024-05-02 04:13 | PC.NURSE ---
Consent for central line obtained
--- NOTE | 2024-05-02 04:33 | PC.NURSE ---
Per EDP Dr. Hoskins, central line is okay to use after reviewing Xray.
[2024-05-02 06:08] LABS: Reflex Lactic Acid Yes or No Add Lactic
[2024-05-02 06:46] LABS: Lactic Acid Reflex 1.4 mmol/L (0.7-2.0)
--- NOTE | 2024-05-02 07:25 | ADMGEN ---
This patient, Dylan Masters, was admitted to Intensive Care Unit-2. Bedside handoff from Nightshift RN who received patient from ED completed. Patient/family oriented to hospital policies and general routines including ID bracelet, bed and alarms, visiting hours, pain management, procedures, bathroom and other care routines, personal items, smoking policy, room service/diet, and visiting hours. Information on how to activate the Rapid Response Team has been discussed. Patient/Family are encouraged to report perceived risks to care and to ask questions if they do not understand what they are told or what they should do.
[2024-05-02 07:26] LABS: Lactic Acid 1.4 mmol/L (0.7-2.0)
--- NOTE | 2024-05-02 07:41 | P.HP_ITS ---
H&P: HPI History of Present Illness Date/Time: 05/02/24 07:41 Chief Complaint: Abdominal pain Narrative: 83yo male with CKD, RA, psoriasis and BPH here for abdominal pain. Patient has hx of right hernia repair in 2006. He was loading firewood about 1 month ago and felt a bulge tot he left groin. Over the past 2-3 days, he has had lower abdominal pain worse with bending over. He also noted increasing abdominal distention. Soft BMs with melana or hematochezia. Last BM was the day before admission. Not passing flatus. He developed nausea and vomiting that persisted. He denies hematemesis. No fevers but had chills in the ED. No urinary symptoms. No CP or SOB. He presented tot he ED for evaluation. In the ED, patient was transiently bradycardic at 47 but this resolved and was tachypneic. No fevers or hypoxia. BP was normal initially. CBC was normal. He has metabolic gap acidosis with lactic acid level of 4.8. He has DANISHA with Cr 2.5 (baseline 1.5-1.7). Lipase and LFTs were normal. UA was not consistent with UTI. CXR with discoid atelectasis and cardiomegaly. CT Abd/Pelvis with contrast showing SBO with transition point related to the left inguinal hernia that contains loop of small bowel and ascitic fluid. Also noted was severe chronic obstructive uropathy of the left kidney with enlargement of the left kidney, severe hydronephrosis and severe diffuse cortical thinning; additional bilateral nonobstructing renal stones; small amount of ascites. EKG showing sinus rhythm with PACs and LAFB. NG tube placed with 1500mL drainage of fecal/gastric contents. Patient was given 3 L fluid resuscitation while awaiting CT scan which confirmed a SBO due to a left inguinal hernia. Left inguinal hernia was reducible but would quickly bulge back out. Despite fluid resuscitation the patient became hypotensive. Left subclavian line was placed and the patient was started on norepinephrine and maintenance fluids. Patient started on cefepime and Flagyl due to penicillin allergy. General Surgery was consulted. Repeat Lactic normal. Review of Systems Review of Systems: All systems reviewed & are unremarkable except as noted in HPI and below [facility] Past Medical History Medical History History of kidney stones 1966,1976 removal CKD (chronic kidney disease) Granulomatous lung disease Rheumatoid arthritis Serology diagnosis Glaucoma Nephrolithiasis BPH (benign prostatic hyperplasia) Psoriatic arthritis Psoriasis Hyperlipidemia Surgical History Surgical History History of amputation of toe 03/2023 middle toe right foot 1st section removed H/O cataract extraction Bilateral with implants History of shoulder surgery both shoulders H/O hernia repair Family History Family History Father Cerebrovascular accident, Onset Age: 63 Mother Diabetes mellitus Heart disease Social History Social History (Updated 05/02/24 @ 10:57 by uJliano Wright MD) Social History: Lives with his who is his durable power corporate associate attorney for healthcare. The patient has no children. He used to use chewing tobacco but has not used since 2014. No alcohol or drug use Code status - Full Surrogate decision maker - Smoking status: Never smoker Smokeless tobacco user: chewing tobacco Second hand tobacco smoke exposure: No Smoking end date: 07/23/14 Additional smoking assessment comments: STATES CHEWED FROM AGE 15 UNTIL QUITTING IN 2014 Alcohol intake: never Substance use: never Substance use type: does not use Do You Feel Safe in your Home?: Yes Lack of Transportation: No Lack of Food: Never True Current Housing: I Have Housing Concerned About Future Housing: No Difficulty Paying Gas/Electric Bills: No Difficulty Paying for Meds: No Currently Unemployed: No Education: Trade/Vocational Certificate Difficulty w/ Childcare or Family Care: No Living arrangements: with family Gender identity (if verbalized by the patient): Male Spiritual care concerns: No Meds Home Medications and Allergies Home Medications ?Medication ?Instructions ?Recorded ?Confirmed ?Type ascorbic acid (vitamin C) 1,000 mg 1 g PO DAILY 07/27/20 05/02/24 History tablet (Vitamin C) aspirin 81 mg tablet,delayed 81 mg PO HS 07/27/20 05/02/24 History release (Remi Low Dose Aspirin) brinzolamide 1 %-brimonidine 0.2 % 1 drp EACH EYE TID 07/27/20 05/02/24 History eye drops,suspension (Simbrinza) latanoprost 0.005 % eye drops 1 drp RIGHT EYE HS 07/27/20 05/02/24 History vitamin E 400 unit tablet 450 mg PO DAILY 07/27/20 05/02/24 History amlodipine 10 mg tablet 5 mg PO DAILY 04/13/23 05/02/24 History magnesium 200 mg tablet 25 mg PO HS 04/13/23 05/02/24 History folic acid 800 mcg tablet 1 mg PO QAM 04/25/23 05/02/24 History cyanocobalamin (vitamin B-12) 500 1,000 mcg PO DAILY 06/26/23 05/02/24 History mcg tablet multivitamin with minerals-folic 1 tablet PO DAILY 06/26/23 05/02/24 History acid 0.4 mg tablet carboxymethylcellulose sodium 0.5 1 drp EACH EYE TID 07/12/23 05/02/24 History % eye drops in a dropperette coQ10 (ubiquinol) 100 mg capsule 200 mg PO HS 08/08/23 05/02/24 History (Qunol Silas CoQ10) ferrous sulfate 325 mg (65 mg 325 mg PO DAILY 08/08/23 05/02/24 History iron) tablet (Feosol) omeprazole 20 mg tablet,delayed 20 mg PO BID #180 tabs 10/04/23 05/02/24 Rx release diazepam 2 mg tablet 2 mg PO BID vertigo #60 tabs 12/14/23 05/02/24 Rx atenolol 50 mg tablet 50 mg PO QAM #90 tabs 01/01/24 05/02/24 Rx atorvastatin 40 mg tablet 40 mg PO QAM #90 tabs 01/07/24 05/02/24 Rx albuterol sulfate 90 mcg/actuation 2 puff inhalation .q6hr PRN 05/02/24 05/02/24 History aerosol inhaler wheezing apple cider vinegar 250 mg 250 mg PO HS 05/02/24 05/02/24 History chewable tablet budesonide 160 mcg-glycopyr 9 2 inh inhalation BID 05/02/24 05/02/24 History mcg-formot 4.8 mcg/actuation HFA inhaler (Breztri Aerosphere) fluticasone propionate 50 1 spray intranasal HS PRN nasal 05/02/24 05/02/24 History mcg/actuation nasal congestion spray,suspension (24 Hour Allergy Relief) meclizine 25 mg tablet 25 mg PO QID PRN dizziness 05/02/24 05/02/24 History tamsulosin 0.4 mg capsule 0.4 mg PO QHS 05/02/24 05/02/24 History vit C 250 mg-vit E 90 mg-zinc 10 1 cap PO QAM AND QHS 05/02/24 05/02/24 History mg-copper 1 hd-coivmo-hlgyup capsule ([facility] Vitamin-Mineral) Allergies Allergy/AdvReac Type Severity Reaction Status Date / Time Penicillins Allergy Severe Hives Verified 05/02/24 03:01 Vital Signs Vital Signs - 24 hr 05/02/24 01:46 05/02/24 02:59 05/02/24 03:15 Temperature 96.8 F L 98 F 98.9 F Pulse Rate 45 L 77 83 Respiratory Rate 24 H 24 H 17 Blood Pressure 111/89 84/58 L 102/64 Pulse Oximetry 94 93 92 Oxygen Delivery Room Air 05/02/24 03:38 05/02/24 04:03 05/02/24 04:12 Temperature 98.5 F 98.3 F Pulse Rate 85 90 88 Respiratory Rate 22 H 18 Blood Pressure 132/68 92/55 L 80/51 L Pulse Oximetry 92 98 Oxygen Delivery 05/02/24 04:17 05/02/24 04:22 05/02/24 04:26 Temperature Pulse Rate 80 89 89 Respiratory Rate 35 H Blood Pressure 74/51 L 75/54 L 106/59 L Pulse Oximetry 99 Oxygen Delivery 05/02/24 04:35 05/02/24 04:49 05/02/24 04:51 Temperature Pulse Rate 83 75 82 Respiratory Rate Blood Pressure 100/62 94/59 L 92/53 L Pulse Oximetry Oxygen Delivery 05/02/24 04:56 05/02/24 05:48 05/02/24 06:04 Temperature Pulse Rate 75 86 90 Respiratory Rate 19 22 H Blood Pressure 103/67 101/61 80/65 L Pulse Oximetry 93 93 Oxygen Delivery 05/02/24 06:12 05/02/24 06:24 Temperature 97.8 F 98.8 F Pulse Rate 77 79 Respiratory Rate 20 20 Blood Pressure 115/67 121/69 Pulse Oximetry 94 94 Oxygen Delivery Exam Narrative: AF 98.8 121/69 79 20 94% ra Gen - ill appearing male in no acute respiratory distress who is toxic-appearing lying semi recumbent in bed HEENT - normocephalic. Atraumatic. Right pupil nonreactive. Left pupil reac tive. Extraocular motions intact. Sclera clear and anicteric. NGT secured. Oropharynx was poorly visualized. No oral lesions. Dry mucous membranes. Tongue was midline with brownish coat. Palate fidel symmetrically. No facial asymmetry. Neck - neck was supple. No dominant adenopathy or masses. Chest - decreased BS left base o/w clear. Left subclavian central line in place. CV - heart was regular rate and rhythm. Distant S1-S2. No murmurs gallops or rubs. Abd - distended, diffusely tender with guarding, firm and tympanitic. No active BS. Ext - no clubbing, cyanosis or edema. 2+ DP pulses bilaterally. Neuro - patient is alert and oriented x3 (not Leo name). Strength is 4+/5 in both upper and lower extremities. Cranial nerves 2-12 are intact. Speech is clear. Psych - normal mood and affect. Skin - cool and dry. No rashes noted. H&P: Results Labs Labs: Short CBC 05/02/24 Range/Units 02:15 WBC 5.0 (4.5-10.0) K/mm3 Hgb 15.3 D (14.0-18.0) g/dL Hct 47.9 (42.0-52.0) % Plt Count 243 D (150-375) k/mm3 BMP 05/02/24 02:15 Sodium 141 Potassium 4.7 Chloride 110 H Carbon Dioxide 15 L BUN 49 H D Creatinine 2.50 H Glucose 150 H Calcium 9.7 Liver Function 05/02/24 Range/Units 02:15 Total Bilirubin 1.1 (0.2-1.3) mg/dL AST 29 (17-59) U/L ALT 23 (6-50) U/L Alkaline Phosphatase 59 (38-126) U/L Albumin 4.8 (3.5-5.1) g/dL Urine 05/02/24 Range/Units 03:04 Urine Color Dark yellow (Yellow) Urine Appearance Cloudy H (Clear) Urine pH 5.0 (5.0-9.0) Ur Specific [place] 1.021 (1.001-1.035) Urine Protein 1+ H (Negative) mg/dL Urine Glucose (UA) Negative (Negative) mg/dL Assessment and Plan Assessment and plan (1) Shock: Code(s): R57.9 - Shock, unspecified Status: Acute Assessment and Plan: Patient with septic shock related to incarcerated hernia and SOB. Patient was given 3 L fluid resuscitation in ED but remained HoTN. Central line placed and Levophed started. Lactic 4.8 -> 1.4 IV abx started after BCx collected. Patient moved to ICU. Levophed at 23mcg/min General surgery consulted (2) SBO (small bowel obstruction): Code(s): K56.609 - Unspecified intestinal obstruction, unspecified as to partial versus complete obstruction Status: Acute Assessment and Plan: Patient with SBO related to left inguinal hernia. Hernia has been reduced at bedside. Hopefully condition will improve with supportive care. Gen Surgery consulted and will re-evlauate later today to see if surgery is required. NGT placed with 1500mL suctioned and now on LWIS. Continue supportive care. (3) Incarcerated left inguinal hernia: Code(s): K40.30 - Unilateral inguinal hernia, with obstruction, without gangrene, not specified as recurrent Status: Acute Assessment and Plan: As above (4) Acute on chronic renal failure: Code(s): N17.9 - Acute kidney failure, unspecified; N18.9 - Chronic kidney disease, unspecified Status: Acute Assessment and Plan: Baseline Cr 1.5-1.7. Cr 2.5 on admission. DANISHA related to above. Fluid resuscitated. Monitor renal function, UOP, and electrolytes. (5) Obstructive uropathy: Code(s): N13.9 - Obstructive and reflux uropathy, unspecified Status: Acute Assessment and Plan: CT scan also shows multiple nonobstructing right renal stones, markedly enlarged left kidney with marked, severe chronic hydronephrosis and severe diffuse cortical thinning. There is a large, presumably chronically obstructing stone at the left renal pelvis region measuring 3.0 x 2.0 cm in size. Additional smaller nonobstructing left renal stones are also present. UA is not consistent with UTI. Probably incidental findings and not contributing to his current illness Urology consulted. (6) Rheumatoid arthritis: Qualifiers: Rheumatoid arthritis location: unspecified site Rheumatoid factor presence: unspecified presence Qualified Code(s): M06.9 - Rheumatoid arthritis, unspecified Code(s): M06.9 - Rheumatoid arthritis, unspecified Status: Chronic Assessment and Plan: Hx of RA. No immunosuppressive agents listed. Follow (7) Granulomatous lung disease: Code(s): J84.10 - Pulmonary fibrosis, unspecified Status: Acute Assessment and Plan: No wheezing. On 2L. Follow Plan DVT Prophylaxis - Heparin Code status - Full
[2024-05-02 07:48] LABS: Glucose Point of Care 86 mg/dl (65-105)
--- NOTE | 2024-05-02 08:20 | P.CONGS_ITS ---
Assessment and Plan Assessment and plan (1) Incarcerated left inguinal hernia: Code(s): K40.30 - Unilateral inguinal hernia, with obstruction, without gangrene, not specified as recurrent Status: Acute Assessment and Plan: * I reviewed the CT and discussed findings with patient. I was able to reduce the hernia fairly easily with manual pressure. NG tube has been placed for the obstruction. Will monitor this to see if symptoms resolve with hernia reduced now. If hernia keeps getting incarcerated, will need to consider surgical intervention. Patient is not sure about wanting to have surgery at this time, but wants to see how obstruction progresses first. I discussed with him that surgery will be higher risk given his pulmonary function and advanced age. Will have to make sure he is medically clear to proceed with surgery. Will continue to follow. (2) SBO (small bowel obstruction): Code(s): K56.609 - Unspecified intestinal obstruction, unspecified as to partial versus complete obstruction Status: Acute (3) Acute on chronic renal failure: Code(s): N17.9 - Acute kidney failure, unspecified; N18.9 - Chronic kidney disease, unspecified Status: Acute (4) Granulomatous lung disease: Code(s): J84.10 - Pulmonary fibrosis, unspecified Status: Acute History of Present Illness Consult details Consult date: 05/02/24 Reason for consult: hernia (Incarcerated left inguinal hernia) Requesting physician: Cordell Hoskins MD Narrative: This is an 83 yo man who I am asked to see for a left inguinal hernia. He presented to the ED with abdominal pain and bloating. He was experiencing symptoms for about 2 days. Also had nausea and vomiting. He states he knew he had a left inguinal hernia since about the spring time when he felt a pop and sharp pain. It has been relatively pain free since then until the last couple days. He states it is just achy now. In the ED he was hypotensive and in acute renal failure. The hernia was reduced by the ED physician but then it came right back out. He was admitted to the ICU for further management. Review of Systems 2 Review of Systems: All systems reviewed & are unremarkable except as noted in HPI and below Constitutional: Constitutional: Denies chills and Denies fever(s) Eyes: Eyes: Denies change in vision ENT: Denies hearing loss, Denies neck pain and Denies sore throat Cardiovascular: Cardiovascular: Denies chest pain and Denies dyspnea Respiratory: Respiratory: Denies cough, Denies dyspnea and Denies wheezing Gastrointestinal: Gastrointestinal: Reports as per HPI Genitourinary: Genitourinary: Denies hematuria and Denies dysuria Musculoskeletal: Musculoskeletal: Denies arthralgias, Denies joint swelling and Denies neck pain Allergic/Immunologic: Allergic/Immunologic: Denies wheezing PMFSH Past Medical History Medical History History of kidney stones 1966,1976 removal CKD (chronic kidney disease) Granulomatous lung disease Rheumatoid arthritis Serology diagnosis Glaucoma Nephrolithiasis BPH (benign prostatic hyperplasia) Psoriatic arthritis Psoriasis Hyperlipidemia Surgical History Surgical History History of amputation 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 The patient stated that he is a DNR. 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 The patient has no children. He used to use chewing tobacco but has not used since 2014. The patient does not use any marijuana or illicit drugs. He denies any alcohol use. Smoking status: Former smoker Smokeless tobacco user: chewing tobacco Second hand tobacco smoke exposure: No Smoking end date: 07/23/14 Additional smoking assessment comments: STATES CHEWED FROM AGE 15 UNTIL QUITTING IN 2015 Alcohol intake: never Substance use: never Substance use type: does not use Do You Feel Safe in your Home?: Yes Lack of Transportation: No Lack of Food: Never True Current Housing: I Have Housing Concerned About Future Housing: No Difficulty Paying Gas/Electric Bills: No Difficulty Paying for Meds: No Currently Unemployed: No Education: Trade/Vocational Certificate Difficulty w/ Childcare or Family Care: No Living arrangements: with family Gender identity (if verbalized by the patient): Male Spiritual care concerns: No Meds Home Medications and Allergies Home Medications ?Medication ?Instructions ?Recorded ?Confirmed ?Type ascorbic acid (vitamin C) 1,000 mg 1 g PO DAILY 07/27/20 05/02/24 History tablet (Vitamin C) aspirin 81 mg tablet,delayed 81 mg PO HS 07/27/20 05/02/24 History release (Remi Low Dose Aspirin) brinzolamide 1 %-brimonidine 0.2 % 1 drp EACH EYE TID 07/27/20 05/02/24 History eye drops,suspension (Simbrinza) latanoprost 0.005 % eye drops 1 drp RIGHT EYE HS 07/27/20 05/02/24 History vitamin E 400 unit tablet 450 mg PO DAILY 07/27/20 05/02/24 History amlodipine 10 mg tablet 5 mg PO DAILY 04/13/23 05/02/24 History magnesium 200 mg tablet 25 mg PO HS 04/13/23 05/02/24 History folic acid 800 mcg tablet 1 mg PO QAM 04/25/23 05/02/24 History cyanocobalamin (vitamin B-12) 500 1,000 mcg PO DAILY 06/26/23 05/02/24 History mcg tablet multivitamin with minerals-folic 1 tablet PO DAILY 06/26/23 05/02/24 History acid 0.4 mg tablet carboxymethylcellulose sodium 0.5 1 drp EACH EYE TID 07/12/23 05/02/24 History % eye drops in a dropperette coQ10 (ubiquinol) 100 mg capsule 200 mg PO HS 08/08/23 05/02/24 History (Qunol Silas CoQ10) ferrous sulfate 325 mg (65 mg 325 mg PO DAILY 08/08/23 05/02/24 History iron) tablet (Feosol) omeprazole 20 mg tablet,delayed 20 mg PO BID #180 tabs 10/04/23 05/02/24 Rx release diazepam 2 mg tablet 2 mg PO BID vertigo #60 tabs 12/14/23 05/02/24 Rx atenolol 50 mg tablet 50 mg PO QAM #90 tabs 01/01/24 05/02/24 Rx atorvastatin 40 mg tablet 40 mg PO QAM #90 tabs 01/07/24 05/02/24 Rx albuterol sulfate 90 mcg/actuation 2 puff inhalation .q6hr PRN 05/02/24 05/02/24 History aerosol inhaler wheezing apple cider vinegar 250 mg 250 mg PO HS 05/02/24 05/02/24 History chewable tablet budesonide 160 mcg-glycopyr 9 2 inh inhalation BID 05/02/24 05/02/24 History mcg-formot 4.8 mcg/actuation HFA inhaler (Breztri Aerosphere) fluticasone propionate 50 1 spray intranasal HS PRN nasal 05/02/24 05/02/24 History mcg/actuation nasal congestion spray,suspension (24 Hour Allergy Relief) meclizine 25 mg tablet 25 mg PO QID PRN dizziness 05/02/24 05/02/24 History tamsulosin 0.4 mg capsule 0.4 mg PO QHS 05/02/24 05/02/24 History vit C 250 mg-vit E 90 mg-zinc 10 1 cap PO QAM AND QHS 05/02/24 05/02/24 History mg-copper 1 [id number] capsule (Eye Health Vitamin-Mineral) Allergies Allergy/AdvReac Type Severity Reaction Status Date / Time Penicillins Allergy Severe Hives Verified 05/02/24 03:01 Vital Signs Vital Signs - 24 hr 05/02/24 01:46 05/02/24 02:59 05/02/24 03:15 Temperature 96.8 F L 98 F 98.9 F Pulse Rate 45 L 77 83 Respiratory Rate 24 H 24 H 17 Blood Pressure 111/89 84/58 L 102/64 Pulse Oximetry 94 93 92 Oxygen Delivery Room Air 05/02/24 03:38 05/02/24 04:03 05/02/24 04:12 Temperature 98.5 F 98.3 F Pulse Rate 85 90 88 Respiratory Rate 22 H 18 Blood Pressure 132/68 92/55 L 80/51 L Pulse Oximetry 92 98 Oxygen Delivery 05/02/24 04:17 05/02/24 04:22 05/02/24 04:26 Temperature Pulse Rate 80 89 89 Respiratory Rate 35 H Blood Pressure 74/51 L 75/54 L 106/59 L Pulse Oximetry 99 Oxygen Delivery 05/02/24 04:35 05/02/24 04:49 05/02/24 04:51 Temperature Pulse Rate 83 75 82 Respiratory Rate Blood Pressure 100/62 94/59 L 92/53 L Pulse Oximetry Oxygen Delivery 05/02/24 04:56 05/02/24 05:48 05/02/24 06:04 Temperature Pulse Rate 75 86 90 Respiratory Rate 19 22 H Blood Pressure 103/67 101/61 80/65 L Pulse Oximetry 93 93 Oxygen Delivery 05/02/24 06:12 05/02/24 06:24 05/02/24 08:00 Temperature 97.8 F 98.8 F 97.8 F Pulse Rate 77 79 73 Respiratory Rate 20 20 19 Blood Pressure 115/67 121/69 91/59 L Pulse Oximetry 94 94 94 Oxygen Delivery Exam 2 Const: General: alert; No acute distress Orientation/consciousness: patient oriented x3 Limitations: no limitations HENMT: Head: normocephalic and atraumatic Ears: hearing grossly normal bilaterally Face/Nose/Sinus: Normal external nose present and Normal nares present Mouth: Yes Normal oral and palatal mucosa present and Yes moist mucous membranes Eyes: General: appearance normal, both eyes and all related structures C onjunctivae: conjunctivae normal Sclera: sclerae normal Pupils: Equal, round and reactive pupils present EOM: EOMs intact bilaterally Neck: Neck: normal visual inspection, full ROM, no lymphadenopathy, supple and no JVD Lymphatic: no lymphadenopathy noted Chest: Chest palpation & inspection: normal inspection of the chest Resp: Effort & Inspection: normal respiratory effort and able to speak in complete sentences Auscultation: clear to auscultation bilaterally P ercussion: percussion normal Cardio: Jugular venous distension: no JVD Rate: regular rate Rhythm: r egular rhythm Heart sounds: S1 normal heart sound present and S2 normal heart sound present Peripheral pulses: Peripheral pulses 2+ throughout GI: Inspection: distended GI Palp: Yes Soft to palpation, No Tenderness to palpation present (GI) and No Guarding due to palpation present (GI) P ercussion: Yes tympanic to percussion Auscultation: normal bowel sounds : General: Yes no CVA tenderness Scrotum: inguinal hernia on the left Other: Large left inguinal hernia extending to superior scrotum. Bowel palpable within hernia. Able to reduce hernia within about a minute with gentle manual pressure lying supine. Back/Spine/Pelvis: Back: no CVA tenderness Skin: General skin exam: normal color and dry skin Neuro: General: patient oriented x3, gait normal, moves all extremities, no focal motor deficits and CN's II-XI intact bilaterally Cranial nerves: Yes Equal, round and reactive pupils present Speech: normal speech Extrem: General: normal to inspection and capillary refill normal Results Labs 05/02/24 02:15 05/02/24 02:15 Labs: Abnormal lab results 05/02/24 05/02/24 Range/Units 02:15 03:04 MCHC 31.9 L (32-36) g/dl RDW 14.7 H (11.5-14.5) % Neut % (Auto) 82.1 H (45.5-73.1) % Lymph % (Auto) 10.9 L (18.3-44.2) % Lymph # (Auto) 0.54 L (0.9-3.2) K/mm3 Chloride 110 H (98-107) mmol/L Carbon Dioxide 15 L (22-30) mmol/L Anion Gap 16 H (4-12) mmol/L BUN 49 H D (9-20) mg/dL Creatinine 2.50 H (0.7-1.3) mg/dL Estimated GFR 25 L (59 - ) Glucose 150 H (65-110) mg/dL Lactic Acid 4.8 H* (0.7-2.0) mmol/L Urine Appearance Cloudy H (Clear) Urine Protein 1+ H (Negative) mg/dL Leukocyte Esterase Rfl Trace H (Negative) ZAID/UL Diabetes panel 05/02/24 Range/Units 02:15 Sodium 141 (137-145) mmol/L Potassium 4.7 (3.4-5.0) mmol/L Chloride 110 H (98-107) mmol/L Carbon Dioxide 15 L (22-30) mmol/L BUN 49 H D (9-20) mg/dL Creatinine 2.50 H (0.7-1.3) mg/dL Glucose 150 H (65-110) mg/dL Calcium 9.7 (8.4-10.2) mg/dL AST 29 (17-59) U/L ALT 23 (6-50) U/L Alkaline Phosphatase 59 (38-126) U/L Total Protein 8.0 (6.3-8.2) g/dL Albumin 4.8 (3.5-5.1) g/dL Calcium panel 05/02/24 Range/Units 02:15 Calcium 9.7 (8.4-10.2) mg/dL Albumin 4.8 (3.5-5.1) g/dL Pituitary panel 05/02/24 Range/Units 02:15 Sodium 141 (137-145) mmol/L Potassium 4.7 (3.4-5.0) mmol/L Chloride 110 H (98-107) mmol/L Carbon Dioxide 15 L (22-30) mmol/L BUN 49 H D (9-20) mg/dL Creatinine 2.50 H (0.7-1.3) mg/dL Glucose 150 H (65-110) mg/dL Calcium 9.7 (8.4-10.2) mg/dL Adrenal panel 05/02/24 Range/Units 02:15 Sodium 141 (137-145) mmol/L Potassium 4.7 (3.4-5.0) mmol/L Chloride 110 H (98-107) mmol/L Carbon Dioxide 15 L (22-30) mmol/L BUN 49 H D (9-20) mg/dL Creatinine 2.50 H (0.7-1.3) mg/dL Glucose 150 H (65-110) mg/dL Calcium 9.7 (8.4-10.2) mg/dL Total Bilirubin 1.1 (0.2-1.3) mg/dL AST 29 (17-59) U/L ALT 23 (6-50) U/L Alkaline Phosphatase 59 (38-126) U/L Total Protein 8.0 (6.3-8.2) g/dL Albumin 4.8 (3.5-5.1) g/dL All other labs normal. Imaging Additional studies: ITS Impressions Abdomen/Pelvis CT 05/02/24 05:20 Impression: Small bowel obstruction, with transition point related to left inguinal hernia which contains a loop of small bowel as well as ascitic fluid. 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 Additional bilateral nonobstructing renal stones, as detailed above. Small amount of ascites. Prostate gland. Abdomen X-Ray 05/02/24 06:01 Impression: NG tube in satisfactory position. Suspected small bowel obstruction. Chest X-Ray 05/02/24 06:03 Impression: Support tubes, as above. No pneumothorax. Discoid right basilar atelectasis. Stable cardiomegaly.
--- NOTE | 2024-05-02 09:18 | PC.NURSE ---
Addendum entered by Monika Calderón RN 05/02/24 10:11: Saundra Eric at bedside, informed of need for POA/Living will documentation. Will bring in copy at earliest convenience. Discussed code status with patient again with spouse at bedside and educated on full code vs DNR/DNI. At this time will remain full code per and joint decision Original Note: Patient stated during his admission assessment that he'll remain a full code until his Saundra arrives later this morning with living will and POA paperwork. Afterwards he would like to change his code status to DNR or according to what his paperwork states. hourly shift RNs America and Durga were made aware of these wishes upon his arrival to the unit and this information was shared with per diem rn as well.
--- NOTE | 2024-05-02 09:28 | P.CONIN_ITS ---
Assessment and Plan Assessment and plan (1) Shock: Code(s): R57.9 - Shock, unspecified Status: Acute Assessment and Plan: 05/02: Patient presented with nausea, vomiting, abdominal pain, abdominal distension. CT scan of the abdomen and pelvis showed small-bowel obstruction with incarcerated hernia -NG tube inserted with immediate drainage of 1500 mL in the ER in and approximately 500 mL gastric drainage in the ICU -patient was given 3 L IV fluids in the ER -left subclavian line was inserted in the ER on 05/02 -continue Levophed to maintain MAP > 65 mmHg at all times for adequate end organ pretty -started on cefepime and Flagyl (05/02) 05/02: Blood cultures have been obtained -continue maintenance IV fluids at 75 mL/hour 05/02: CT abdomen pelvis: Small bowel obstruction, with transition point related to left inguinal hernia which contains a loop of small bowel as well as ascitic fluid. 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 Additional bilateral nonobstructing renal stones, as detailed above. Small amount of ascites. (2) Incarcerated left inguinal hernia: Code(s): K40.30 - Unilateral inguinal hernia, with obstruction, without gangrene, not specified as recurrent Status: Acute Assessment and Plan: Incarcerated left inguinal hernia on CT scan of the abdomen and pelvis -appreciate surgery evaluation and recommendation -continue NG tube to drainage, bowel rest, antibiotics -left inguinal hernia was reduced with manual pressure by the surgeon. -recommends to monitor and see if the symptoms resolve, if not may need surgical intervention (3) SBO (small bowel obstruction): Code(s): K56.609 - Unspecified intestinal obstruction, unspecified as to partial versus complete obstruction Status: Acute Assessment and Plan: As above -surgery following the pain -continue NG drainage, antibiotics and IV fluids (4) Acute on chronic renal failure: Code(s): N17.9 - Acute kidney failure, unspecified; N18.9 - Chronic kidney disease, unspecified Status: Acute Assessment and Plan: Patient with acute on chronic kidney disease. 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 Additional bilateral nonobstructing renal stones, Will have Urology evaluate the patient Plan DVT prophylaxis: Heparin subQ Stress ulcer prophylaxis: Protonix Nutrition: NPO Code Status: Full code Critical Care Time Spent: 49 minutes Due to a high probability of clinically significant, life threatening deterioration, the patient required my highest level of preparedness to intervene emergently and I personally spent this critical care time directly and personally managing the patient. This critical care time included obtaining a history; examining the patient; pulse oximetry; ordering and review of studies; arranging urgent treatment with development of a management plan; evaluation of patient's response to treatment; frequent reassessment; and discussions with other providers. It was exclusive of separately billable procedures and treating other patients and teaching time. Please see Assessment and Plan section and the rest of the note for further information on patient assessment and treatment This dictation may have been done utilizing a voice recognition system. Attempts have been made to correct errors. However, there may be uncorrected grammatical, spelling, and recognitions errors present. Refuge Manager Consult Note Consult date: 05/02/24 Reason for consult: , incarcerated left inguinal hernia, small-bowel obstruction, acute on chronic renal failure HPI: Dylan Masters is a 83 year old male with past medical history of kidney stones, chronic kidney disease, rheumatoid arthritis, granulomatous lung disease, psoriasis, hyperlipidemia, BPH presents to the E on 05/02/2024 with complains of abdominal pain and bloating/distention for 2 days. Patient also had nausea and vomiting med denies any fevers or chills. He did have a bowel movement on 05/01, but has not get passed any gas after that. In the ER patient was found to be hypotensive, was resuscitated with 3 L of IV fluids, despite which blood pressures remained low, left subclavian line was inserted and patient started on Levophed. Patient also had a large left-sided inguinal hernia which was reduced in the ER but quickly bulged back. Patient was started on cefepime and Flagyl. Surgery was consulted, NG tube was inserted with 1500 mL of gastric drainage. WBC count was 5.0, hemoglobin of 15.3, platelets 243. CO2 15, BUN 49, creatinine 2.50 blood sugars 150, lactic acid 4.8, repeat lactic acid was 1.4, LFTs are within normal limits. Patient was transferred to the ICU for further management 05/02: CT abdomen pelvis: Small bowel obstruction, with transition point related to left inguinal hernia which contains a loop of small bowel as well as ascitic fluid. 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 Additional bilateral nonobstructing renal stones, as detailed above. Small amount of ascites. Patient seen and examined the ICU, is awake, alert, oriented, nonfocal, complains of abdominal pain and distension, denies any nausea vomiting at this time. Denies any chest pain, shortness of breath. Patient is on Levophed with adequate MAPs. Patient continues to have significant NG tube drainage. Surgery at bedside, reduce the hernia with manual pressure. 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 The patient stated that he is a DNR. 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 The patient has no children. He used to use chewing tobacco but has not used since 2014. The patient does not use any marijuana or illicit drugs. He denies any alcohol use. Smoking status: Never smoker Smokeless tobacco user: chewing tobacco Second hand tobacco smoke exposure: No Smoking end date: 07/23/14 Additional smoking assessment comments: STATES CHEWED FROM AGE 15 UNTIL QUITTING IN 2014 Alcohol intake: never Substance use: never Substance use type: does not use Do You Feel Safe in your Home?: Yes Lack of Transportation: No Lack of Food: Never True Current Housing: I Have Housing Concerned About Future Housing: No Difficulty Paying Gas/Electric Bills: No Difficulty Paying for Meds: No Currently Unemployed: No Education: Trade/Vocational Certificate Difficulty w/ Childcare or Family Care: No Living arrangements: with family Gender identity (if verbalized by the patient): Male Spiritual care concerns: No Meds Home Medications and Allergies Home Medications ?Medication ?Instructions ?Recorded ?Confirmed ?Type ascorbic acid (vitamin C) 1,000 mg 1 g PO DAILY 07/27/20 05/02/24 History tablet (Vitamin C) aspirin 81 mg tablet,delayed 81 mg PO HS 07/27/20 05/02/24 History release (Remi Low Dose Aspirin) brinzolamide 1 %-brimonidine 0.2 % 1 drp EACH EYE TID 07/27/20 05/02/24 History eye drops,suspension (Simbrinza) latanoprost 0.005 % eye drops 1 drp RIGHT EYE HS 07/27/20 05/02/24 History vitamin E 400 unit tablet 450 mg PO DAILY 07/27/20 05/02/24 History amlodipine 10 mg tablet 5 mg PO DAILY 04/13/23 05/02/24 History magnesium 200 mg tablet 25 mg PO HS 04/13/23 05/02/24 History folic acid 800 mcg tablet 1 mg PO QAM 04/25/23 05/02/24 History cyanocobalamin (vitamin B-12) 500 1,000 mcg PO DAILY 06/26/23 05/02/24 History mcg tablet multivitamin with minerals-folic 1 tablet PO DAILY 06/26/23 05/02/24 History acid 0.4 mg tablet carboxymethylcellulose sodium 0.5 1 drp EACH EYE TID 07/12/23 05/02/24 History % eye drops in a dropperette coQ10 (ubiquinol) 100 mg capsule 200 mg PO HS 08/08/23 05/02/24 History (Qunol Silas CoQ10) ferrous sulfate 325 mg (65 mg 325 mg PO DAILY 08/08/23 05/02/24 History iron) tablet (Feosol) omeprazole 20 mg tablet,delayed 20 mg PO BID #180 tabs 10/04/23 05/02/24 Rx release diazepam 2 mg tablet 2 mg PO BID vertigo #60 tabs 12/14/23 05/02/24 Rx atenolol 50 mg tablet 50 mg PO QAM #90 tabs 01/01/24 05/02/24 Rx atorvastatin 40 mg tablet 40 mg PO QAM #90 tabs 01/07/24 05/02/24 Rx albuterol sulfate 90 mcg/actuation 2 puff inhalation .q6hr PRN 05/02/24 05/02/24 History aerosol inhaler wheezing apple cider vinegar 250 mg 250 mg PO HS 05/02/24 05/02/24 History chewable tablet budesonide 160 mcg-glycopyr 9 2 inh inhalation BID 05/02/24 05/02/24 History mcg-formot 4.8 mcg/actuation HFA inhaler (Breztri Aerosphere) fluticasone propionate 50 1 spray intranasal HS PRN nasal 05/02/24 05/02/24 History mcg/actuation nasal congestion spray,suspension (24 Hour Allergy Relief) meclizine 25 mg tablet 25 mg PO QID PRN dizziness 05/02/24 05/02/24 History tamsulosin 0.4 mg capsule 0.4 mg PO QHS 05/02/24 05/02/24 History vit C 250 mg-vit E 90 mg-zinc 10 1 cap PO QAM AND QHS 05/02/24 05/02/24 History mg-copper 1 [id number] capsule (Eye Health Vitamin-Mineral) Allergies Allergy/AdvReac Type Severity Reaction Status Date / Time Penicillins Allergy Severe Hives Verified 05/02/24 03:01 Vital Signs Vital Signs - 24 hr 05/02/24 01:46 05/02/24 02:59 05/02/24 03:15 Temperature 96.8 F L 98 F 98.9 F Pulse Rate 45 L 77 83 Respiratory Rate 24 H 24 H 17 Blood Pressure 111/89 84/58 L 102/64 Pulse Oximetry 94 93 92 Oxygen Delivery Room Air Oxygen Flow Rate Fraction of Inspired Oxygen 05/02/24 03:38 05/02/24 04:03 05/02/24 04:12 Temperature 98.5 F 98.3 F Pulse Rate 85 90 88 Respiratory Rate 22 H 18 Blood Pressure 132/68 92/55 L 80/51 L Pulse Oximetry 92 98 Oxygen Delivery Oxygen Flow Rate Fraction of Inspired Oxygen 05/02/24 04:17 05/02/24 04:22 05/02/24 04:26 Temperature Pulse Rate 80 89 89 Respiratory Rate 35 H Blood Pressure 74/51 L 75/54 L 106/59 L Pulse Oximetry 99 Oxygen Delivery Oxygen Flow Rate Fraction of Inspired Oxygen 05/02/24 04:35 05/02/24 04:49 05/02/24 04:51 Temperature Pulse Rate 83 75 82 Respiratory Rate Blood Pressure 100/62 94/59 L 92/53 L Pulse Oximetry Oxygen Delivery Oxygen Flow Rate Fraction of Inspired Oxygen 05/02/24 04:56 05/02/24 05:48 05/02/24 06:04 Temperature Pulse Rate 75 86 90 Respiratory Rate 19 22 H Blood Pressure 103/67 101/61 80/65 L Pulse Oximetry 93 93 Oxygen Delivery Oxygen Flow Rate Fraction of Inspired Oxygen 05/02/24 06:12 05/02/24 06:24 05/02/24 08:00 Temperature 97.8 F 98.8 F 97.8 F Pulse Rate 77 79 73 Respiratory Rate 20 20 19 Blood Pressure 115/67 121/69 91/59 L Pulse Oximetry 94 94 94 Oxygen Delivery Oxygen Flow Rate Fraction of Inspired Oxygen 05/02/24 08:00 05/02/24 08:00 05/02/24 08:00 Temperature Pulse Rate 76 76 72 Respiratory Rate 21 H Blood Pressure 91/59 L Pulse Oximetry 96 Oxygen Delivery Nasal Cannula Oxygen Flow Rate 2 Fraction of Inspired Oxygen 05/02/24 08:44 05/02/24 09:22 Temperature Pulse Rate 72 Respiratory Rate Blood Pressure 87/53 L Pulse Oximetry 95 Oxygen Delivery Nasal Cannula Oxygen Flow Rate 2 Fraction of Inspired Oxygen 28 Exam 2 Narrative: General: Pleasant gentleman in no acute distress HEENT:? Pupils equal and reactive, sclera is clear, dry oral mucosa Neck:? Supple Respiratory:? Clear to auscultation bilaterally, decreased air basis, no wheeze, adequate air entry Cardiac:? S1-S2 normal, regular rate and rhythm Abdomen:? Soft, distended, tympanic to percussion, hypoactive bowel sounds, left inguinal hernia Extremities:? Trace edema, palpable pedal pulse Neuro:? Patient is awake, alert, oriented x3, nonfocal, answers to questions appropriately and follows simple commands in all extremities Skin:? Warm and dry Psych:? Normal mentation affect Results Labs 05/02/24 02:15 05/02/24 02:15 Labs: Short CBC 05/02/24 Range/Units 02:15 WBC 5.0 (4.5-10.0) K/mm3 Hgb 15.3 D (14.0-18.0) g/dL Hct 47.9 (42.0-52.0) % Plt Count 243 D (150-375) k/mm3 BMP 05/02/24 02:15 Sodium 141 Potassium 4.7 Chloride 110 H Carbon Dioxide 15 L BUN 49 H D Creatinine 2.50 H Glucose 150 H Calcium 9.7 Liver Function 05/02/24 Range/Units 02:15 Total Bilirubin 1.1 (0.2-1.3) mg/dL AST 29 (17-59) U/L ALT 23 (6-50) U/L Alkaline Phosphatase 59 (38-126) U/L Albumin 4.8 (3.5-5.1) g/dL Urine 05/02/24 Range/Units 03:04 Urine Color Dark yellow (Yellow) Urine Appearance Cloudy H (Clear) Urine pH 5.0 (5.0-9.0) Ur Specific [place] 1.021 (1.001-1.035) Urine Protein 1+ H (Negative) mg/dL Urine Glucose (UA) Negative (Negative) mg/dL
[2024-05-02] MEDS: NOREPINEPHRINE 8 MG/D5W 250 ML 8 MG/250 ML BAG 43.13 MG IV CONT (10:40)
[2024-05-02 10:41] LABS: MRSA (PCR) NOT DETECTED (NOT DETECTE)
--- NOTE | 2024-05-02 11:00 | PC.NURSE ---
Updated patient's spouse, Saundra, on patient status and current condition.
[2024-05-02] MEDS: ALBUMIN HUMAN 25% 25 GM/100 ML 100 ML IVPB ×2 (11:04→19:28)
[2024-05-02] MEDS: VASOPRESSIN INJ 100 UNITS in DEXTROSE 5% 95 ML IV CONT (12:11)
[2024-05-02] MEDS: BRIMONIDINE TARTRATE 0.2% OP SOLN 5 ML BTL 1 DROP EACH EYE ×2 (13:00→22:23)
[2024-05-02] MEDS: HEPARIN SODIUM 5,000 UNITS/ML VIAL 5000 UNITS SUB-Q ×2 (13:00→21:00)
[2024-05-02] MEDS: BRINZOLAMIDE 1% OPHTH SUSP 10 ML 1 DROP EACH EYE ×2 (13:00→22:23)
[2024-05-02 13:29] LABS: Anion Gap 10 mmol/L (4-12); Blood Urea Nitrogen 57 mg/dL (9-20); Calcium 8.3 mg/dL (8.4-10.2); Carbon Dioxide 14 mmol/L (22-30); Chloride 116 mmol/L (98-107); Estimated CRCL calculation 21 ml/min; Estimated Glomerular Filt Rate 24; Glucose 96 mg/dL (65-110); Potassium 3.8 mmol/L (3.4-5.0); Sodium 140 mmol/L (137-145)
[2024-05-02 13:30] LABS: Magnesium 2.2 mg/dL (1.6-2.3)
[2024-05-02] MEDS: SODIUM BICARBONATE 8.4% 50 MEQ/50 ML SYRINGE IV PUSH (14:34)
[2024-05-02] MEDS: SODIUM BICARBONATE 8.4% 150 MEQ in DEXTROSE 5% 1,000 ML 950 ML 75 MEQ IV CONT (14:34)
--- NOTE | 2024-05-02 14:48 | P.CONUR_ITS ---
Assessment and Plan Assessment and plan (1) Incarcerated left inguinal hernia: Code(s): K40.30 - Unilateral inguinal hernia, with obstruction, without gangrene, not specified as recurrent Status: Acute (2) SBO (small bowel obstruction): Code(s): K56.609 - Unspecified intestinal obstruction, unspecified as to partial versus complete obstruction Status: Acute (3) Atrophy of left kidney: Code(s): N26.1 - Atrophy of kidney (terminal) Status: Acute Assessment and Plan: * Marked hydronephrosis and atrophy of the left kidney which is chronic in nature. By patient's report this dates back to the . 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 * No intervention indicated for his left kidney in the absence of recurrent pyelonephritis or bleeding from left kidney. * Of some importance o\are the stones in his right kidney. I would recommend follow-up following discharge to discuss intervention for those stones ( likely ESWL) Urology Consult Note HPI Date Seen: 05/02/24 Requesting Physician: Celeste Delvalle DO Primary Care Provider: Benedicto Westbrook MD Consult Narrative Narrative: Dylan Masters is a 83 year old male Who is admitted through the emergency department with a small-bowel obstruction and incarcerated ( yet reducible) inguinal hernia. During the course of evaluation CT scan of the abdomen pelvis demonstrated a markedly hydronephrotic and completely atrophic left kidney. I can see from prior imaging ( specifically a chest CT done in June 2023) that his left kidney had a similar appearance. In questioning he says he is known to have a markedly abnormal and enlarged left kidney since the . He denies history of painful/problematic urolithiasis, recurrent urinary tract infection, pyelonephritis or gross hematuria. CT scan abdomen and pelvis shows, additionally, several nonobstructing stones in his right kidney. Review of Systems 2 Cardiovascular: Cardiovascular: Denies chest pain, Denies lightheadedness, Denies palpitations and Denies dyspnea Respiratory: Respiratory: Denies dyspnea Gastrointestinal: Gastrointestinal: Reports abdominal pain, Denies diarrhea, Reports nausea and Denies vomiting Genitourinary: Genitourinary: Denies hematuria and Denies dysuria Endocrine: Endocrine: Denies palpitations PMFSH Past Medical History Medical History History of kidney stones 1966,1976 removal CKD (chronic kidney disease) Granulomatous lung disease Rheumatoid arthritis Serology diagnosis Glaucoma Nephrolithiasis BPH (benign prostatic hyperplasia) Psoriatic arthritis Psoriasis Hyperlipidemia Surgical History Surgical History History of amputation of toe 03/2023 middle toe right foot 1st section removed H/O cataract extraction Bilateral with implants History of shoulder surgery both shoulders H/O hernia repair Family History Family History Father Cerebrovascular accident, Onset Age: 63 Mother Diabetes mellitus Heart disease Social History Social History (Updated 05/02/24 @ 10:57 by Juliano Wright MD) Social History: Lives with his who is his durable power securities attorney for healthcare. The patient has no children. He used to use chewing tobacco but has not used since 2014. No alcohol or drug use Code status - Full Surrogate decision maker - Smoking status: Never smoker Smokeless tobacco user: chewing tobacco Second hand tobacco smoke exposure: No Smoking end date: 07/23/14 Additional smoking assessment comments: STATES CHEWED FROM AGE 15 UNTIL QUITTING IN 2014 Alcohol intake: never Substance use: never Substance use type: does not use Do You Feel Safe in your Home?: Yes Lack of Transportation: No Lack of Food: Never True Current Housing: I Have Housing Concerned About Future Housing: No Difficulty Paying Gas/Electric Bills: No Difficulty Paying for Meds: No Currently Unemployed: No Education: Trade/Vocational Certificate Difficulty w/ Childcare or Family Care: No Living arrangements: with family Gender identity (if verbalized by the patient): Male Spiritual care concerns: No Meds Home Medications and Allergies Home Medications ?Medication ?Instructions ?Recorded ?Confirmed ?Type ascorbic acid (vitamin C) 1,000 mg 1 g PO DAILY 07/27/20 05/02/24 History tablet (Vitamin C) aspirin 81 mg tablet,delayed 81 mg PO HS 07/27/20 05/02/24 History release (Remi Low Dose Aspirin) brinzolamide 1 %-brimonidine 0.2 % 1 drp EACH EYE TID 07/27/20 05/02/24 History eye drops,suspension (Simbrinza) latanoprost 0.005 % eye drops 1 drp RIGHT EYE HS 07/27/20 05/02/24 History vitamin E 400 unit tablet 450 mg PO DAILY 07/27/20 05/02/24 History amlodipine 10 mg tablet 5 mg PO DAILY 04/13/23 05/02/24 History magnesium 200 mg tablet 25 mg PO HS 04/13/23 05/02/24 History folic acid 800 mcg tablet 1 mg PO QAM 04/25/23 05/02/24 History cyanocobalamin (vitamin B-12) 500 1,000 mcg PO DAILY 06/26/23 05/02/24 History mcg tablet multivitamin with minerals-folic 1 tablet PO DAILY 06/26/23 05/02/24 History acid 0.4 mg tablet carboxymethylcellulose sodium 0.5 1 drp EACH EYE TID 07/12/23 05/02/24 History % eye drops in a dropperette coQ10 (ubiquinol) 100 mg capsule 200 mg PO HS 08/08/23 05/02/24 History (Qunol Silas CoQ10) ferrous sulfate 325 mg (65 mg 325 mg PO DAILY 08/08/23 05/02/24 History iron) tablet (Feosol) omeprazole 20 mg tablet,delayed 20 mg PO BID #180 tabs 10/04/23 05/02/24 Rx release diazepam 2 mg tablet 2 mg PO BID vertigo #60 tabs 12/14/23 05/02/24 Rx atenolol 50 mg tablet 50 mg PO QAM #90 tabs 01/01/24 05/02/24 Rx atorvastatin 40 mg tablet 40 mg PO QAM #90 tabs 01/07/24 05/02/24 Rx albuterol sulfate 90 mcg/actuation 2 puff inhalation .q6hr PRN 05/02/24 05/02/24 History aerosol inhaler wheezing apple cider vinegar 250 mg 250 mg PO HS 05/02/24 05/02/24 History chewable tablet budesonide 160 mcg-glycopyr 9 2 inh inhalation BID 05/02/24 05/02/24 History mcg-formot 4.8 mcg/actuation HFA inhaler (Breztri Aerosphere) fluticasone propionate 50 1 spray intranasal HS PRN nasal 05/02/24 05/02/24 History mcg/actuation nasal congestion spray,suspension (24 Hour Allergy Relief) meclizine 25 mg tablet 25 mg PO QID PRN dizziness 05/02/24 05/02/24 History tamsulosin 0.4 mg capsule 0.4 mg PO QHS 05/02/24 05/02/24 History vit C 250 mg-vit E 90 mg-zinc 10 1 cap PO QAM AND QHS 05/02/24 05/02/24 History mg-copper 1 [id number] capsule (Eye Health Vitamin-Mineral) Allergies Allergy/AdvReac Type Severity Reaction Status Date / Time Penicillins Allergy Severe Hives Verified 05/02/24 03:01 Vital Signs Vital Signs - 24 hr 05/02/24 01:46 05/02/24 02:59 05/02/24 03:15 Temperature 96.8 F L 98 F 98.9 F Pulse Rate 45 L 77 83 Respiratory Rate 24 H 24 H 17 Blood Pressure 111/89 84/58 L 102/64 Pulse Oximetry 94 93 92 Oxygen Delivery Room Air Oxygen Flow Rate Fraction of Inspired Oxygen 05/02/24 03:38 05/02/24 04:03 05/02/24 04:12 Temperature 98.5 F 98.3 F Pulse Rate 85 90 88 Respiratory Rate 22 H 18 Blood Pressure 132/68 92/55 L 80/51 L Pulse Oximetry 92 98 Oxygen Delivery Oxygen Flow Rate Fraction of Inspired Oxygen 05/02/24 04:17 05/02/24 04:22 05/02/24 04:26 Temperature Pulse Rate 80 89 89 Respiratory Rate 35 H Blood Pressure 74/51 L 75/54 L 106/59 L Pulse Oximetry 99 Oxygen Delivery Oxygen Flow Rate Fraction of Inspired Oxygen 05/02/24 04:35 05/02/24 04:49 05/02/24 04:51 Temperature Pulse Rate 83 75 82 Respiratory Rate Blood Pressure 100/62 94/59 L 92/53 L Pulse Oximetry Oxygen Delivery Oxygen Flow Rate Fraction of Inspired Oxygen 05/02/24 04:56 05/02/24 05:48 05/02/24 06:04 Temperature Pulse Rate 75 86 90 Respiratory Rate 19 22 H Blood Pressure 103/67 101/61 80/65 L Pulse Oximetry 93 93 Oxygen Delivery Oxygen Flow Rate Fraction of Inspired Oxygen 05/02/24 06:12 05/02/24 06:24 05/02/24 08:00 Temperature 97.8 F 98.8 F 97.8 F Pulse Rate 77 79 73 Respiratory Rate 20 20 19 Blood Pressure 115/67 121/69 91/59 L Pulse Oximetry 94 94 94 Oxygen Delivery Oxygen Flow Rate Fraction of Inspired Oxygen 05/02/24 08:00 05/02/24 08:00 05/02/24 08:00 Temperature Pulse Rate 76 76 72 Respiratory Rate 21 H Blood Pressure 91/59 L Pulse Oximetry 96 Oxygen Delivery Nasal Cannula Oxygen Flow Rate 2 Fraction of Inspired Oxygen 05/02/24 08:44 05/02/24 09:22 05/02/24 10:00 Temperature Pulse Rate 72 70 Respiratory Rate 22 H Blood Pressure 87/53 L 78/51 L Pulse Oximetry 95 95 Oxygen Delivery Nasal Cannula Oxygen Flow Rate 2 Fraction of Inspired Oxygen 28 05/02/24 10:00 05/02/24 10:05 05/02/24 10:15 Temperature Pulse Rate 69 69 72 Respiratory Rate Blood Pressure 78/47 L 79/54 L Pulse Oximetry Oxygen Delivery Oxygen Flow Rate Fraction of Inspired Oxygen 05/02/24 10:29 05/02/24 10:35 05/02/24 10:40 Temperature Pulse Rate 71 70 71 Respiratory Rate Blood Pressure 70/47 L 79/44 L 84/56 L Pulse Oximetry Oxygen Delivery Oxygen Flow Rate Fraction of Inspired Oxygen 05/02/24 11:30 05/02/24 12:00 05/02/24 12:00 Temperature 97.7 F Pulse Rate 74 73 75 Respiratory Rate 23 H Blood Pressure 78/51 L 79/48 L 79/48 L Pulse Oximetry 95 Oxygen Delivery Oxygen Flow Rate Fraction of Inspired Oxygen 05/02/24 12:00 05/02/24 12:00 05/02/24 12:11 Temperature Pulse Rate 78 72 72 Respiratory Rate 23 H Blood Pressure 79/48 L Pulse Oximetry 96 Oxygen Delivery Nasal Cannula Oxygen Flow Rate 2 Fraction of Inspired Oxygen 05/02/24 12:15 05/02/24 12:32 05/02/24 13:15 Temperature Pulse Rate 75 74 74 Respiratory Rate Blood Pressure 77/50 L 79/55 L 88/63 L Pulse Oximetry Oxygen Delivery Oxygen Flow Rate Fraction of Inspired Oxygen 05/02/24 13:15 05/02/24 14:00 05/02/24 14:00 Temperature Pulse Rate 74 77 81 Respiratory Rate 24 H Blood Pressure 88/63 L 109/61 Pulse Oximetry 94 Oxygen Delivery Oxygen Flow Rate Fraction of Inspired Oxygen Exam 2 Const: General: no acute distress Resp: Effort & Inspection: normal respiratory effort GI: Inspection: abnormal to inspection and distended GI Palp: No abdominal tenderness and No Guarding due to palpation present (GI) Auscultation: normal bowel sounds Results Labs 05/02/24 02:15 05/02/24 13:06 Labs: Short CBC 05/02/24 Range/Units 02:15 WBC 5.0 (4.5-10.0) K/mm3 Hgb 15.3 D (14.0-18.0) g/dL Hct 47.9 (42.0-52.0) % Plt Count 243 D (150-375) k/mm3 BMP 05/02/24 05/02/24 02:15 13:06 Sodium 141 140 Potassium 4.7 3.8 Chloride 110 H 116 H Carbon Dioxide 15 L 14 L BUN 49 H D 57 H Creatinine 2.50 H 2.60 H Glucose 150 H 96 Calcium 9.7 8.3 L Liver Function 05/02/24 Range/Units 02:15 Total Bilirubin 1.1 (0.2-1.3) mg/dL AST 29 (17-59) U/L ALT 23 (6-50) U/L Alkaline Phosphatase 59 (38-126) U/L Albumin 4.8 (3.5-5.1) g/dL Urine 05/02/24 Range/Units 03:04 Urine Color Dark yellow (Yellow) Urine Appearance Cloudy H (Clear) Urine pH 5.0 (5.0-9.0) Ur Specific [place] 1.021 (1.001-1.035) Urine Protein 1+ H (Negative) mg/dL Urine Glucose (UA) Negative (Negative) mg/dL
[2024-05-02] MEDS: VANCOMYCIN 1,750 MG/NS 500 ML 1,750 MG/500 ML BAG 250 MG IVPB (16:01)
[2024-05-02] MEDS: HYDROCORTISONE SODIUM SUCCINATE 100 MG/2 ML VIAL IV PUSH ×2 (16:02→21:00)
[2024-05-02] MEDS: NOREPINEPHRINE 8 MG/D5W 250 ML 8 MG/250 ML BAG 56.25 MG IV CONT ×2 (18:02→22:37)
[2024-05-02 18:08] LABS: Glucose Point of Care 106 mg/dl (65-105)
[2024-05-02 18:42] LABS: Creatinine Urine 83.4 mg/dL
[2024-05-02 18:55] LABS: Potassium Urine Random 56.8 meq/L; Sodium Urine Random 17 meq/L
[2024-05-02 18:57] LABS: Eosinophil Urine None Seen % (None Seen); Urine Eos QC 2nd Tech Confirmed
[2024-05-02 19:14] LABS: Creatine Kinase 157 U/L (55-170)
[2024-05-02] MEDS: ACETAMINOPHEN ELIXIR 325 MG/10.15 ML UDC 650 MG FEED TUBE (20:40)
[2024-05-02] MEDS: LATANOPROST 0.005% OP SOLN 2.5 ML BTL 1 DROP RIGHT EYE (20:48)
[2024-05-03] VITALS (59 sets, daily range): BP systolic 75–180; BP diastolic 41–88; PULSE 81–118; RESP 13–25; TEMP 36.7–37.9; O2SAT 90–97
--- NOTE | 2024-05-03 | ECHO_ITS ---
Patient Info Name: Dylan Masters Age: 83 years : 1940 Gender: Male Ht: 70 in Wt: 196 lbs BSA: 2.11 m2 HR: 110 bpm BP: 112 / 75 mmHg Technical Quality: Fair Exam Date: 05/03/2024 8:56 AM Exam Location: Echo Lab Exam Room: ICU 2 Patient Status: Inpatient Admit Date: 05/02/2024 Staff Ordering Physician: Shane Steen MD Warp Spooler: Odessa Silva RDCS Attending Provider: Celeste Delvalle DO Referring Physician: Enio RUEDA; Exam Type: CA echo doppler color flow Study Info Complete two-dimensional, color flow and Doppler transthoracic echocardiogram is performed. Summary 1. Complete two-dimensional, color flow and Doppler transthoracic echocardiogram is performed. 2. Left ventricular systolic function is normal, estimated at 50-55%. 3. There is mildly increased left ventricular wall thickness. 4. The left ventricular diastolic function is abnormal. 5. Left atrial chamber dimension is mildly enlarged. 6. Suspected patent foramen ovale visualized by color flow imaging. 7. There is mild mitral valve regurgitation. 8. There is mild mitral valve calcification. 9. There is trace tricuspid valve regurgitation. Could not estimate RVSP due to incomplete envelope of tricuspid regurgitation. 10. There is trace pulmonic regurgitation. Left Ventricle Left ventricular chamber dimension is normal. Left ventricular systolic function is normal, estimated at 50-55%. There is mildly increased left ventricular wall thickness. Left ventricular septal wall motion is normal. The left ventricular diastolic function is abnormal. Right Ventricle Right ventricular chamber dimension is normal. Right ventricular systolic function is normal. Left Atria Left atrial chamber dimension is mildly enlarged. Right Atria Right atrial chamber dimension is normal. Atrial Septum Suspected patent foramen ovale visualized by color flow imaging. Aortic Valve The aortic valve is trileaflet. There is mild aortic valve sclerosis. There is no aortic valve stenosis. There is no aortic valve regurgitation. Pulmonic Valve The pulmonic valve is normal. There is no pulmonic valve stenosis. There is trace pulmonic regurgitation. Mitral Valve The mitral valve has normal leaflets. There is no mitral valve stenosis. There is mild mitral valve regurgitation. There is mild mitral valve calcification. Tricuspid Valve The tricuspid valve leaflets are normal. There is no significant tricuspid valve stenosis. There is trace tricuspid valve regurgitation. Could not estimate RVSP due to incomplete envelope of tricuspid regurgitation. No pulmonary hypertension, estimated pulmonary arterial systolic pressure is Empty. Pericardium/Pleural The pericardium appears normal. There is no pericardial effusion. Inferior Vena Cava Dilated inferior vena cava with <50% collapse upon inspiration consistent with Empty right atrial pressure, Empty. Aorta The aortic root size at the sinus of Valsalva is mildly dilated. The prox ascending aorta size is normal. Report Signatures
[2024-05-03] MEDS: ALBUMIN HUMAN 25% 25 GM/100 ML 100 ML IVPB ×2 (00:59→05:36)
[2024-05-03] MEDS: metroNIDAZOLE 500 MG/ISO 100ML 500 MG/100 ML BAG 100 MG IVPB ×3 (03:07→20:07)
[2024-05-03] MEDS: CEFEPIME 2 GM/NS 50 ML 2 GM/50 ML BAG IVPB (03:07)
[2024-05-03] MEDS: NOREPINEPHRINE 8 MG/D5W 250 ML 8 MG/250 ML BAG 54.38 MG IV CONT (03:10)
[2024-05-03 04:55] LABS: Hematocrit 38.3 % (42.0-52.0); Hemoglobin 12.4 g/dL (14.0-18.0); Mean Corpuscular HGB Conc 32.4 g/dl (32-36); Mean Corpuscular Hemoglobin 28.4 pg (26-34); Mean Corpuscular Volume 87.8 fl (80-100); Mean Platelet Volume 10.1 fl (7.4-10.4); Platelet Count Result 165 k/mm3 (150-375); Red Blood Count 4.36 M/mm3 (4.6-6.20); Red Cell Distribution Width 15.2 % (11.5-14.5); White Blood Count 6.1 K/mm3 (4.5-10.0)
[2024-05-03 05:05] LABS: Lactic Acid Reflex 2.2 mmol/L (0.7-2.0)
[2024-05-03 05:06] LABS: INR 2.1; Prothrombin Time 24.3 Seconds (11.1-14.7)
[2024-05-03 05:07] LABS: Alanine Aminotransferase 22 U/L (6-50); Albumin Level 3.8 g/dL (3.5-5.1); Alkaline Phosphatase 42 U/L (38-126); Anion Gap 15 mmol/L (4-12); Aspartate Amino Transferase 40 U/L (17-59); Blood Urea Nitrogen 64 mg/dL (9-20); Calcium 8.3 mg/dL (8.4-10.2); Carbon Dioxide 17 mmol/L (22-30); Chloride 109 mmol/L (98-107); Estimated CRCL calculation 18 ml/min; Estimated Glomerular Filt Rate 19; Glucose 155 mg/dL (65-110); Partial Thromboplastin Time 42.8 Seconds (22.3-36.8); Phosphorus 5.5 mg/dL (2.5-4.5); Potassium 4.2 mmol/L (3.4-5.0); Sodium 141 mmol/L (137-145)
[2024-05-03 05:33] LABS: Anisocytosis 1+; Atypical Lymphocytes Present; Band Neutrophils Percent 3 % (0-6); Burr Cells 1+; Eosinophils Absolute Manual 0.06 K/mm3 (0.02-0.50); Eosinophils Percent Manual 1 % (0-4); Lymphocytes Absolute Manual 1.64 K/mm3 (1.1-4.5); Monocytes Absolute Manual 0.54 K/mm3 (0.1-0.90); Monocytes Percent Manual 9 % (3-9); Neutrophils Absolute Manual 3.72 K/mm3 (1.3-6.7); Neutrophils Percent Manual 58 % (46-73); Platelet Estimate Slightly Decreased (Adequate); Poikilocytosis 1+; Promyelocytes Percent 2 %; Schistocytes None Seen; Smudge Cells PRESENT; Total Cells Counted 100
[2024-05-03] MEDS: SODIUM BICARBONATE 8.4% 150 MEQ in DEXTROSE 5% 1,000 ML 950 ML 75 MEQ IV CONT ×2 (05:35→22:37)
[2024-05-03] MEDS: BRINZOLAMIDE 1% OPHTH SUSP 10 ML 1 DROP EACH EYE ×3 (05:36→22:36)
[2024-05-03] MEDS: HEPARIN SODIUM 5,000 UNITS/ML VIAL 5000 UNITS SUB-Q ×2 (05:36→22:37)
[2024-05-03] MEDS: HYDROCORTISONE SODIUM SUCCINATE 100 MG/2 ML VIAL IV PUSH ×3 (05:36→22:37)
[2024-05-03] MEDS: BRIMONIDINE TARTRATE 0.2% OP SOLN 5 ML BTL 1 DROP EACH EYE ×3 (05:37→22:36)
--- NOTE | 2024-05-03 05:40 | PC.NURSE ---
Updated patient's spouse, Saundra, on patient status and his overall condition throughout shift.
[2024-05-03] MEDS: CENTRAL LINE FLUSH 10 ML IV PUSH ×3 (06:17→22:42)
--- NOTE | 2024-05-03 07:41 | WPDINTPN ---
Progress Note: A&P Assessment and Plan (1) Shock: Code(s): R57.9 - Shock, unspecified Status: Acute Assessment and Plan: 05/02: Patient presented with nausea, vomiting, abdominal pain, abdominal distension. CT scan of the abdomen and pelvis showed small-bowel obstruction with incarcerated hernia -NG tube inserted with immediate drainage of 1500 mL in the ER in and approximately 500 mL gastric drainage in the ICU -patient was given 3 L IV fluids in the ER -left subclavian line was inserted in the ER on 05/02 -continue Levophed to maintain MAP > 65 mmHg at all times for adequate end organ perfusion -off vasopressin -started on cefepime and Flagyl (05/02) 05/02: Preliminary Blood cultures are negative so far -continue sodium bicarb maintenance IV fluids at 75 mL/hour 05/02: Repeat CT abdomen and pelvis 1. Small bowel obstruction secondary to a left inguinal hernia containing small bowel. 2. Small volume of ascites. 3. Moderate-sized sliding hiatal hernia. 4. Left kidney stones including a stone in the renal pelvis with chronic severe hydronephrosis and severe kidney atrophy. 5. Nonobstructing right kidney stones. 05/02: CT abdomen pelvis on admission: Small bowel obstruction, with transition point related to left inguinal hernia which contains a loop of small bowel as well as ascitic fluid. 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 Additional bilateral nonobstructing renal stones, as detailed above. Small amount of ascites. (2) Incarcerated left inguinal hernia: Code(s): K40.30 - Unilateral inguinal hernia, with obstruction, without gangrene, not specified as recurrent Status: Acute Assessment and Plan: Incarcerated left inguinal hernia on CT scan of the abdomen and pelvis -appreciate surgery evaluation and recommendation -continue NG tube to drainage, bowel rest, antibiotics -left inguinal hernia was reduced with manual pressure by the surgeon. -given continued small-bowel obstruction due to incarcerated hernia, patient be taken to the OR today for surgery, discussed with Surgeon -INR of 2.1, will transfuse 1 unit of FFP prior to surgery (3) SBO (small bowel obstruction): Code(s): K56.609 - Unspecified intestinal obstruction, unspecified as to partial versus complete obstruction Status: Acute Assessment and Plan: As above -surgery following the pain -continue NG drainage,bowel rest, antibiotics and IV fluids (4) Acute on chronic renal failure: Code(s): N17.9 - Acute kidney failure, unspecified; N18.9 - Chronic kidney disease, unspecified Status: Acute Assessment and Plan: Patient with acute on chronic kidney disease. Presented the ED with a creatinine of 2.50 on 05/02 (baseline creatinine 1.20-1.60) - prior to admission pt was on Amlodipine, atenolol for HTN -likely etiology: hypotension, shock, SBO/infection -patient received adequate amount of IV fluids, on pressors, -monitor urine output, electrolytes and renal function -CT of the abdomen showed severe chronic obstructive uropathy of the left kidney with hydronephrosis - urine output has been adequate, Pt with septic shock, with worsening creatinine -urine lytes with possible prerenalbut pt has received adequate IVF and on maintenance IVF too -UA was normal, negative urine eosinophils, CK level normal -consult Nephrology (5) Obstructive uropathy: Code(s): N13.9 - Obstructive and reflux uropathy, unspecified Status: Acute Assessment and Plan: CT scan of the abdomen and pelvis: Severe chronic obstructive uropathy of the left kidney, with enlargement of the left kidney, severe hydronephrosis and severe diffuse cortical thinning. Additional bilateral nonobstructing renal stones, -appreciate urology evaluation and recommendation, no intervention at this time as the marked hydronephrosis on the atrophy of the left kidney is chronic in nature. -Right kidney stones, follow-up with Urology after discharge to discuss further intervention Plan DVT prophylaxis: Heparin subQ Stress ulcer prophylaxis: Protonix Nutrition: NPO Code Status: Full code Critical Care Time Spent: 34 minutes Due to a high probability of clinically significant, life threatening deterioration, the patient required my highest level of preparedness to intervene emergently and I personally spent this critical care time directly and personally managing the patient. This critical care time included obtaining a history; examining the patient; pulse oximetry; ordering and review of studies; arranging urgent treatment with development of a management plan; evaluation of patient's response to treatment; frequent reassessment; and discussions with other providers. It was exclusive of separately billable procedures and treating other patients and teaching time. Please see Assessment and Plan section and the rest of the note for further information on patient assessment and treatment This dictation may have been done utilizing a voice recognition system. Attempts have been made to correct errors. However, there may be uncorrected grammatical, spelling, and recognitions errors present. Subjective Date/time seen: 05/03/24 07:42 Interval history: Reason for consult: Incarcerated left inguinal hernia, small-bowel obstruction, acute on chronic renal failure 05/03/2024: Patient seen examined in the ICU, is awake, alert, answers to questions appropriately. On 2 L nasal cannula with adequate O2 sats. Denies any chest pain, shortness on breath, nausea vomiting. Increased NG drainage overnight, adequate urine output, worsening renal function. INR of 2.1. Patient also complains of abdominal pain. T-max 101.2. Review of Systems Review of Systems: All systems reviewed & are unremarkable except as noted in HPI and below Exam Narrative: General: Pleasant gentleman in no acute distress HEENT:? Pupils equal and reactive, sclera is clear, dry oral mucosa, NG tube in place Neck:? Supple Respiratory:? Coarse breath sounds on left base, adequate air entry, no wheezing Cardiac:? S1-S2 normal, regular rate and rhythm Abdomen:? Soft, distended, tympanic to percussion, hypoactive bowel sounds, left inguinal hernia, tender to palpation Extremities:? Trace edema, palpable pedal pulse Neuro:? Patient is awake, alert, oriented x3, nonfocal, answers to questions appropriately and follows simple commands in all extremities Skin:? Warm and dry Psych:? Normal mentation affect Objective Data Vital Signs Vital Signs: Vital Signs - 24 hr 05/02/24 08:00 05/02/24 08:00 05/02/24 08:00 Temperature 97.8 F Pulse Rate 73 76 76 Respiratory Rate 19 21 H Blood Pressure 91/59 L Pulse Oximetry 94 96 Oxygen Delivery Nasal Cannula Oxygen Flow Rate 2 Fraction of Inspired Oxygen 05/02/24 08:00 05/02/24 08:44 05/02/24 09:22 Temperature Pulse Rate 72 72 Respiratory Rate Blood Pressure 91/59 L 87/53 L Pulse Oximetry 95 Oxygen Delivery Nasal Cannula Oxygen Flow Rate 2 Fraction of Inspired Oxygen 28 05/02/24 10:00 05/02/24 10:00 05/02/24 10:05 Temperature Pulse Rate 70 69 69 Respiratory Rate 22 H Blood Pressure 78/51 L 78/47 L Pulse Oximetry 95 Oxygen Delivery Oxygen Flow Rate Fraction of Inspired Oxygen 05/02/24 10:15 05/02/24 10:29 05/02/24 10:35 Temperature Pulse Rate 72 71 70 Respiratory Rate Blood Pressure 79/54 L 70/47 L 79/44 L Pulse Oximetry Oxygen Delivery Oxygen Flow Rate Fraction of Inspired Oxygen 05/02/24 10:40 05/02/24 11:30 05/02/24 12:00 Temperature 97.7 F Pulse Rate 71 74 73 Respiratory Rate 23 H Blood Pressure 84/56 L 78/51 L 79/48 L Pulse Oximetry 95 Oxygen Delivery Oxygen Flow Rate Fraction of Inspired Oxygen 05/02/24 12:00 05/02/24 12:00 05/02/24 12:00 Temperature Pulse Rate 75 78 72 Respiratory Rate 23 H Blood Pressure 79/48 L Pulse Oximetry 96 Oxygen Delivery Nasal Cannula Oxygen Flow Rate 2 Fraction of Inspired Oxygen 05/02/24 12:11 05/02/24 12:15 05/02/24 12:32 Temperature Pulse Rate 72 75 74 Respiratory Rate Blood Pressure 79/48 L 77/50 L 79/55 L Pulse Oximetry Oxygen Delivery Oxygen Flow Rate Fraction of Inspired Oxygen 05/02/24 13:15 05/02/24 13:15 05/02/24 14:00 Temperature Pulse Rate 74 74 77 Respiratory Rate 24 H Blood Pressure 88/63 L 88/63 L 109/61 Pulse Oximetry 94 Oxygen Delivery Oxygen Flow Rate Fraction of Inspired Oxygen 05/02/24 14:00 05/02/24 14:00 05/02/24 14:00 Temperature Pulse Rate 81 77 79 Respiratory Rate Blood Pressure 109/61 109/61 Pulse Oximetry Oxygen Delivery Oxygen Flow Rate Fraction of Inspired Oxygen 05/02/24 16:00 05/02/24 16:00 05/02/24 16:00 Temperature Pulse Rate 83 83 80 Respiratory Rate 22 H 23 H Blood Pressure 133/69 Pulse Oximetry 95 95 Oxygen Delivery Room Air Oxygen Flow Rate Fraction of Inspired Oxygen 05/02/24 16:00 05/02/24 18:00 05/02/24 18:00 Temperature Pulse Rate 77 86 85 Respiratory Rate Blood Pressure 100/63 88/60 L Pulse Oximetry Oxygen Delivery Oxygen Flow Rate Fraction of Inspired Oxygen 05/02/24 18:00 05/02/24 18:02 05/02/24 18:02 Temperature Pulse Rate 82 86 86 Respiratory Rate 23 H Blood Pressure 88/60 L 88/60 L 88/60 L Pulse Oximetry 91 Oxygen Delivery Oxygen Flow Rate Fraction of Inspired Oxygen 05/02/24 20:00 05/02/24 20:00 05/02/24 20:00 Temperature 101.2 F H Pulse Rate 88 88 88 Respiratory Rate 25 H Blood Pressure 106/71 106/71 106/71 Pulse Oximetry 97 Oxygen Delivery Oxygen Flow Rate Fraction of Inspired Oxygen 05/02/24 20:00 05/02/24 20:00 05/02/24 20:40 Temperature 101.2 F H Pulse Rate 88 86 Respiratory Rate 25 H Blood Pressure Pulse Oximetry 97 Oxygen Delivery Nasal Cannula Oxygen Flow Rate 2 Fraction of Inspired Oxygen 05/02/24 21:40 05/02/24 22:00 05/02/24 22:00 Temperature 100.9 F H 100.9 F H Pulse Rate 88 88 Respiratory Rate 24 H Blood Pressure 116/74 Pulse Oximetry 96 Oxygen Delivery Oxygen Flow Rate Fraction of Inspired Oxygen 05/02/24 22:00 05/02/24 22:00 05/02/24 22:37 Temperature Pulse Rate 88 88 86 Respiratory Rate Blood Pressure 116/74 116/74 124/68 Pulse Oximetry Oxygen Delivery Oxygen Flow Rate Fraction of Inspired Oxygen 05/02/24 22:37 05/03/24 00:00 05/03/24 00:00 Temperature 100.2 F H Pulse Rate 86 89 89 Respiratory Rate 22 H Blood Pressure 124/68 133/76 133/76 Pulse Oximetry 97 Oxygen Delivery Oxygen Flow Rate Fraction of Inspired Oxygen 05/03/24 00:00 05/03/24 00:00 05/03/24 00:00 Temperature Pulse Rate 89 88 88 Respiratory Rate 21 H Blood Pressure 133/76 Pulse Oximetry 97 Oxygen Delivery Nasal Cannula Oxygen Flow Rate 2 Fraction of Inspired Oxygen 05/03/24 02:00 05/03/24 02:00 05/03/24 02:00 Temperature 99.6 F Pulse Rate 96 90 90 Respiratory Rate 21 H Blood Pressure 130/77 130/77 Pulse Oximetry 93 Oxygen Delivery Oxygen Flow Rate Fraction of Inspired Oxygen 05/03/24 02:00 05/03/24 03:10 05/03/24 03:10 Temperature Pulse Rate 90 90 90 Respiratory Rate Blood Pressure 130/77 147/74 H 147/74 H Pulse Oximetry Oxygen Delivery Oxygen Flow Rate Fraction of Inspired Oxygen 05/03/24 04:00 05/03/24 04:00 05/03/24 04:00 Temperature 99.2 F Pulse Rate 90 90 90 Respiratory Rate 22 H Blood Pressure 143/74 H 143/81 H 143/74 H Pulse Oximetry 95 Oxygen Delivery Oxygen Flow Rate Fraction of Inspired Oxygen 05/03/24 04:00 05/03/24 04:00 05/03/24 05:15 Temperature Pulse Rate 88 90 89 Respiratory Rate 21 H Blood Pressure 146/80 H Pulse Oximetry 97 Oxygen Delivery Nasal Cannula Oxygen Flow Rate 2 Fraction of Inspired Oxygen 05/03/24 05:50 05/03/24 06:00 05/03/24 06:00 Temperature 98.9 F Pulse Rate 88 88 89 Respiratory Rate 20 Blood Pressure 142/79 H 140/70 140/70 Pulse Oximetry 94 Oxygen Delivery Oxygen Flow Rate Fraction of Inspired Oxygen 05/03/24 06:00 05/03/24 06:00 05/03/24 06:15 Temperature Pulse Rate 89 87 88 Respiratory Rate Blood Pressure 140/70 125/71 Pulse Oximetry Oxygen Delivery Oxygen Flow Rate Fraction of Inspired Oxygen 05/03/24 06:45 Temperature Pulse Rate 89 Respiratory Rate Blood Pressure 118/84 Pulse Oximetry Oxygen Delivery Oxygen Flow Rate Fraction of Inspired Oxygen Intake/Output Intake/Output: Intake & Output 04/30/24 05/01/24 05/02/24 05/03/24 23:59 23:59 23:59 23:59 Intake Total 5214.4 1958.6 Output Total 3645 1100 Balance 1569.4 858.6 Meds/Results Medications: Active Medications Generic Name Dose Route Start Last Admin Trade Name Freq PRN Reason Stop Dose Admin Acetaminophen 650 mg 05/02/24 20:45 05/02/24 20:40 Acetaminophen Elixir 325 Mg/10.15 Ml Udc FEED TUBE 650 mg Q6H PRN Administration Mild Pain (1-3) or Fever Brimonidine Tartrate 1 drop 05/02/24 14:00 05/03/24 05:37 Brimonidine Tartrate 0.2% Op Soln 5 Ml Btl EACH EYE 1 drop Q8HR EVER Administration Brinzolamide 1 drop 05/02/24 14:00 05/03/24 05:36 Brinzolamide 1% Ophth Susp 10 Ml EACH EYE 1 drop Q8HR EVER Administration Heparin Sodium (Porcine) 5,000 units 05/02/24 14:00 05/03/24 05:36 Heparin Sodium 5,000 Units/Ml Vial SUB-Q 5,000 units Q8HR EVER Administration Hydrocortisone Sodium Succinate 100 mg 05/02/24 15:00 05/03/24 05:36 Hydrocortisone Sodium Succinate 100 Mg/2 Ml Vial IV PUSH 100 mg Q8HR EVER Administration Cefepime HCl 2 gm in 50 mls @ 100 mls/hr 05/03/24 03:00 05/03/24 03:35 Maxipime 2 Gm/Ns 50 Ml IVPB Infused Q24H EVER Infusion Metronidazole 500 mg in 100 mls @ 100 mls/hr 05/02/24 12:00 05/03/24 04:10 Flagyl 500 Mg/Iso Soln 100 Ml IVPB Infused Q8H EVER Infusion Norepinephrine Bitartrate 8 mg in 250 mls @ 46.875 mls/hr 05/02/24 10:40 05/03/24 06:45 Levophed 8 Mg/D5w 250 Ml IV CONT 25 mcg/min .Q5H20M EVER 46.88 mls/hr Titration Protocol 25 MCG/MIN Vasopressin 100 units/ 100 mls @ 0 mls/hr 05/02/24 11:55 05/03/24 06:00 Dextrose IV CONT 0 units/min .Q0M EVER 0 mls/hr Titration Protocol 0 UNITS/MIN Sodium Bicarbonate 150 meq/ 1,100 mls @ 75 mls/hr 05/02/24 14:15 05/03/24 05:35 Dextrose IV CONT 75 mls/hr .[id number] EVER Administration Phenylephrine HCl 50 mg/ 250 ml in 250 mls @ 12 mls/hr 05/02/24 15:00 05/02/24 19:40 Dextrose IV CONT Not Given .[id number] EVER Protocol 40 MCG/MIN Sodium Chloride 250 mls @ 30 mls/hr 05/03/24 07:40 Normal Saline Iv IV CONT 05/03/24 15:59 .Q8H20M STA Latanoprost 1 drop 05/02/24 21:00 05/02/24 20:48 Latanoprost 0.005% Op Soln 2.5 Ml Btl RIGHT EYE 1 drop HS EVER Administration Ondansetron HCl 4 mg 05/02/24 10:09 05/02/24 16:02 Ondansetron Inj 4 Mg/2 Ml Vial IV PUSH 4 mg Q6H PRN Administration Nausea And Vomiting Pantoprazole Sodium 40 mg 05/03/24 09:00 Pantoprazole Sodium Iv 40 Mg Vial IV PUSH QAM EVER Perflutren Lipid Microsphere 0 ml 05/03/24 07:19 Perflutren Lipid Microspheres 1.5 Ml Vial Diluted To 10 Ml Total Volume IV PUSH 05/06/24 07:19 ONCE PRN adequate visualization Protocol Sodium Chloride 10 ml 05/03/24 06:00 05/03/24 06:17 Central Line Flush IV PUSH 10 ml Q8HR EVER Administration Sodium Chloride 20 ml 05/03/24 05:52 Central Line Flush IV PUSH PRN PRN after blood draws Vancomycin HCl 1 each 05/02/24 15:13 Vancomycin For Acute Kidney Injury IVPB PRN PRN Vancomycin Protocol Radiology Results: ITS Impressions Abdomen X-Ray 05/02/24 06:01 Impression: NG tube in satisfactory position. Suspected small bowel obstruction. Renal Ultrasound 05/02/24 15:30 IMPRESSION: 1. Chronic severe left hydronephrosis. Severe left kidney atrophy. 2. Nonobstructing right kidney stone. Abdomen/Pelvis CT 05/02/24 18:09 IMPRESSION: 1. Small bowel obstruction secondary to a left inguinal hernia containing small bowel. 2. Small volume of ascites. 3. Moderate-sized sliding hiatal hernia. 4. Left kidney stones including a stone in the renal pelvis with chronic severe hydronephrosis and severe kidney atrophy. 5. Nonobstructing right kidney stones. Chest X-Ray 05/03/24 05:58 IMPRESSION: 1. Airspace opacities in the lower lung zones with worsening on the left, consistent with atelectasis versus pneumonia. 2. Cardiomegaly. Labs Labs: Laboratory Results - last 24 hr 05/02/24 05/02/24 05/02/24 07:41 08:39 13:06 WBC RBC Hgb Hct MCV MCH MCHC RDW Plt Count MPV Immature Gran % (Auto) Neut % (Auto) Lymph % (Auto) [place] % (Auto) Eos % (Auto) Baso % (Auto) Lymph # (Auto) [place] # (Auto) Eos # (Auto) Baso # (Auto) Abs Immat Gran (auto) Absolute Neuts (auto) Absolute Nucleated RBC Total Counted Neutrophils % (Manual) Band Neutrophils % Lymphocytes % (Manual) Monocytes % (Manual) Eosinophils % (Manual) Promyelocytes % (Man) Nucleated RBC % Abs Neuts (Manual) Abs Lymphs (Manual) Abs Monocytes (Manual) Absolute Eos (Manual) Atypical Lymphocytes Smudge Cells Platelet Estimate Poikilocytosis Anisocytosis [place] Cells Schistocytes PT INR APTT Sodium 140 Potassium 3.8 Chloride 116 H Carbon Dioxide 14 L Anion Gap 10 BUN 57 H Creatinine 2.60 H Estim Creat Clear Calc 21 Estimated GFR 24 L Glucose 96 POC Capillary Glucose 86 Lactic Acid Calcium 8.3 L Phosphorus 3.0 Magnesium 2.2 Total Bilirubin AST ALT Alkaline Phosphatase Total Creatine Kinase Total Protein Albumin Urine Eosinophils Ur Random Sodium Ur Random Potassium Urine Creatinine Nasal MRSA (PCR) Not detected 05/02/24 05/02/24 05/03/24 18:06 18:08 04:49 WBC RBC Hgb Hct MCV MCH MCHC RDW Plt Count MPV Immature Gran % (Auto) Neut % (Auto) Lymph % (Auto) [place] % (Auto) Eos % (Auto) Baso % (Auto) Lymph # (Auto) [place] # (Auto) Eos # (Auto) Baso # (Auto) Abs Immat Gran (auto) Absolute Neuts (auto) Absolute Nucleated RBC Total Counted Neutrophils % (Manual) Band Neutrophils % Lymphocytes % (Manual) Monocytes % (Manual) Eosinophils % (Manual) Promyelocytes % (Man) Nucleated RBC % Abs Neuts (Manual) Abs Lymphs (Manual) Abs Monocytes (Manual) Absolute Eos (Manual) Atypical Lymphocytes Smudge Cells Platelet Estimate Poikilocytosis Anisocytosis [place] Cells Schistocytes PT 24.3 H INR 2.1 APTT 42.8 H Sodium 141 Potassium 4.2 Chloride 109 H Carbon Dioxide 17 L Anion Gap 15 H BUN 64 H Creatinine 3.10 H Estim Creat Clear Calc 18 Estimated GFR 19 L Glucose 155 H POC Capillary Glucose 106 H Lactic Acid 2.2 H Calcium 8.3 L Phosphorus 5.5 H Magnesium 2.0 Total Bilirubin 1.0 AST 40 ALT 22 Alkaline Phosphatase 42 Total Creatine Kinase 157 Total Protein 6.0 L Albumin 3.8 Urine Eosinophils None seen Ur Random Sodium 17 Ur Random Potassium 56.8 Urine Creatinine 83.4 Nasal MRSA (PCR) 05/03/24 04:50 WBC 6.1 RBC 4.36 L Hgb 12.4 L Hct 38.3 L MCV 87.8 MCH 28.4 MCHC 32.4 RDW 15.2 H Plt Count 165 MPV 10.1 Immature Gran % (Auto) Not Reportable Neut % (Auto) Not Reportable Lymph % (Auto) Not Reportable [place] % (Auto) Not Reportable Eos % (Auto) Not Reportable Baso % (Auto) Not Reportable Lymph # (Auto) Not Reportable [place] # (Auto) Not Reportable Eos # (Auto) Not Reportable Baso # (Auto) Not Reportable Abs Immat Gran (auto) Not Reportable Absolute Neuts (auto) Not Reportable Absolute Nucleated RBC Not Reportable Total Counted 100 Neutrophils % (Manual) 58 Band Neutrophils % 3 Lymphocytes % (Manual) 27.0 Monocytes % (Manual) 9 Eosinophils % (Manual) 1 Promyelocytes % (Man) 2 Nucleated RBC % Not Reportable Abs Neuts (Manual) 3.72 Abs Lymphs (Manual) 1.64 Abs Monocytes (Manual) 0.54 Absolute Eos (Manual) 0.06 Atypical Lymphocytes Present Smudge Cells Present Platelet Estimate Slightly decreased Poikilocytosis 1+ Anisocytosis 1+ [place] Cells 1+ Schistocytes None seen PT INR APTT Sodium Potassium Chloride Carbon Dioxide Anion Gap BUN Creatinine Estim Creat Clear Calc Estimated GFR Glucose POC Capillary Glucose Lactic Acid Calcium Phosphorus Magnesium Total Bilirubin AST ALT Alkaline Phosphatase Total Creatine Kinase Total Protein Albumin Urine Eosinophils Ur Random Sodium Ur Random Potassium Urine Creatinine Nasal MRSA (PCR)
[2024-05-03 07:53] LABS: Reflex Lactic Acid Yes or No Add Lactic
[2024-05-03 08:09] LABS: Lactic Acid 2.3 mmol/L (0.7-2.0)
--- NOTE | 2024-05-03 08:18 | P.PNGS_ITS ---
Progress Note: A&P Assessment and Plan (1) Incarcerated left inguinal hernia: Code(s): K40.30 - Unilateral inguinal hernia, with obstruction, without gangrene, not specified as recurrent Status: Acute Assessment and Plan: * Despite reducing the hernia several times yesterday, he still remains symptomatic and hernia keeps becoming incarcerated. Repeat CT last night showed persistent small bowel obstruction. He has no overt signs of perforation or bowel ischemia but remains hypotensive. His blood pressure is slightly improved this morning but he still remains on vasopressors. He remains high risk for surgery but given the small-bowel obstruction and persistent incarceration he will likely only get worse if this is not operated on. I have recommended proceeding with open incarcerated left inguinal hernia repair, possible bowel resection. I discussed the procedure, risks, benefits, and alternatives with the patient. Questions were answered. Patient does have an elevated INR this morning. He will be getting 1 unit of FFP and will also give vitamin K IV. 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 His blood pressure is somewhat better this morning, but his abdomen is still very distended. I was able to reduce the left inguinal hernia 3 times yesterday, but the hernia just keeps coming out and causes the persistent obstruction. Exam GI: Inspection: distended GI Palp: Yes Firmness to palpation present (GI), No Guarding due to palpation present (GI) and No Rebound tenderness present : Scrotum: inguinal hernia on the left Other: Left inguinal hernia remains incarcerated, becoming more difficult to reduce. Objective Data Vital Signs Vital Signs: Vital Signs - 24 hr 05/02/24 08:44 05/02/24 09:22 05/02/24 10:00 Temperature Pulse Rate 72 70 Respiratory Rate 22 H Blood Pressure 87/53 L 78/51 L Pulse Oximetry 95 95 Oxygen Delivery Nasal Cannula Oxygen Flow Rate 2 Fraction of Inspired Oxygen 28 05/02/24 10:00 05/02/24 10:05 05/02/24 10:15 Temperature Pulse Rate 69 69 72 Respiratory Rate Blood Pressure 78/47 L 79/54 L Pulse Oximetry Oxygen Delivery Oxygen Flow Rate Fraction of Inspired Oxygen 05/02/24 10:29 05/02/24 10:35 05/02/24 10:40 Temperature Pulse Rate 71 70 71 Respiratory Rate Blood Pressure 70/47 L 79/44 L 84/56 L Pulse Oximetry Oxygen Delivery Oxygen Flow Rate Fraction of Inspired Oxygen 05/02/24 11:30 05/02/24 12:00 05/02/24 12:00 Temperature 97.7 F Pulse Rate 74 73 75 Respiratory Rate 23 H Blood Pressure 78/51 L 79/48 L 79/48 L Pulse Oximetry 95 Oxygen Delivery Oxygen Flow Rate Fraction of Inspired Oxygen 05/02/24 12:00 05/02/24 12:00 05/02/24 12:11 Temperature Pulse Rate 78 72 72 Respiratory Rate 23 H Blood Pressure 79/48 L Pulse Oximetry 96 Oxygen Delivery Nasal Cannula Oxygen Flow Rate 2 Fraction of Inspired Oxygen 05/02/24 12:15 05/02/24 12:32 05/02/24 13:15 Temperature Pulse Rate 75 74 74 Respiratory Rate Blood Pressure 77/50 L 79/55 L 88/63 L Pulse Oximetry Oxygen Delivery Oxygen Flow Rate Fraction of Inspired Oxygen 05/02/24 13:15 05/02/24 14:00 05/02/24 14:00 Temperature Pulse Rate 74 77 81 Respiratory Rate 24 H Blood Pressure 88/63 L 109/61 Pulse Oximetry 94 Oxygen Delivery Oxygen Flow Rate Fraction of Inspired Oxygen 05/02/24 14:00 05/02/24 14:00 05/02/24 16:00 Temperature Pulse Rate 77 79 83 Respiratory Rate 22 H Blood Pressure 109/61 109/61 133/69 Pulse Oximetry 95 Oxygen Delivery Oxygen Flow Rate Fraction of Inspired Oxygen 05/02/24 16:00 05/02/24 16:00 05/02/24 16:00 Temperature Pulse Rate 83 80 77 Respiratory Rate 23 H Blood Pressure 100/63 Pulse Oximetry 95 Oxygen Delivery Room Air Oxygen Flow Rate Fraction of Inspired Oxygen 05/02/24 18:00 05/02/24 18:00 05/02/24 18:00 Temperature Pulse Rate 86 85 82 Respiratory Rate 23 H Blood Pressure 88/60 L 88/60 L Pulse Oximetry 91 Oxygen Delivery Oxygen Flow Rate Fraction of Inspired Oxygen 05/02/24 18:02 05/02/24 18:02 05/02/24 20:00 Temperature Pulse Rate 86 86 88 Respiratory Rate Blood Pressure 88/60 L 88/60 L 106/71 Pulse Oximetry Oxygen Delivery Oxygen Flow Rate Fraction of Inspired Oxygen 05/02/24 20:00 05/02/24 20:00 05/02/24 20:00 Temperature 101.2 F H Pulse Rate 88 88 88 Respiratory Rate 25 H 25 H Blood Pressure 106/71 106/71 Pulse Oximetry 97 97 Oxygen Delivery Nasal Cannula Oxygen Flow Rate 2 Fraction of Inspired Oxygen 05/02/24 20:00 05/02/24 20:40 05/02/24 21:40 Temperature 101.2 F H 100.9 F H Pulse Rate 86 Respiratory Rate Blood Pressure Pulse Oximetry Oxygen Delivery Oxygen Flow Rate Fraction of Inspired Oxygen 05/02/24 22:00 05/02/24 22:00 05/02/24 22:00 Temperature 100.9 F H Pulse Rate 88 88 88 Respiratory Rate 24 H Blood Pressure 116/74 116/74 Pulse Oximetry 96 Oxygen Delivery Oxygen Flow Rate Fraction of Inspired Oxygen 05/02/24 22:00 05/02/24 22:37 05/02/24 22:37 Temperature Pulse Rate 88 86 86 Respiratory Rate Blood Pressure 116/74 124/68 124/68 Pulse Oximetry Oxygen Delivery Oxygen Flow Rate Fraction of Inspired Oxygen 05/03/24 00:00 05/03/24 00:00 05/03/24 00:00 Temperature 100.2 F H Pulse Rate 89 89 89 Respiratory Rate 22 H Blood Pressure 133/76 133/76 133/76 Pulse Oximetry 97 Oxygen Delivery Oxygen Flow Rate Fraction of Inspired Oxygen 05/03/24 00:00 05/03/24 00:00 05/03/24 02:00 Temperature Pulse Rate 88 88 96 Respiratory Rate 21 H Blood Pressure Pulse Oximetry 97 Oxygen Delivery Nasal Cannula Oxygen Flow Rate 2 Fraction of Inspired Oxygen 05/03/24 02:00 05/03/24 02:00 05/03/24 02:00 Temperature 99.6 F Pulse Rate 90 90 90 Respiratory Rate 21 H Blood Pressure 130/77 130/77 130/77 Pulse Oximetry 93 Oxygen Delivery Oxygen Flow Rate Fraction of Inspired Oxygen 05/03/24 03:10 05/03/24 03:10 05/03/24 04:00 Temperature Pulse Rate 90 90 90 Respiratory Rate Blood Pressure 147/74 H 147/74 H 143/74 H Pulse Oximetry Oxygen Delivery Oxygen Flow Rate Fraction of Inspired Oxygen 05/03/24 04:00 05/03/24 04:00 05/03/24 04:00 Temperature 99.2 F Pulse Rate 90 90 88 Respiratory Rate 22 H 21 H Blood Pressure 143/81 H 143/74 H Pulse Oximetry 95 97 Oxygen Delivery Nasal Cannula Oxygen Flow Rate 2 Fraction of Inspired Oxygen 05/03/24 04:00 05/03/24 05:15 05/03/24 05:50 Temperature Pulse Rate 90 89 88 Respiratory Rate Blood Pressure 146/80 H 142/79 H Pulse Oximetry Oxygen Delivery Oxygen Flow Rate Fraction of Inspired Oxygen 05/03/24 06:00 05/03/24 06:00 05/03/24 06:00 Temperature 98.9 F Pulse Rate 88 89 89 Respiratory Rate 20 Blood Pressure 140/70 140/70 140/70 Pulse Oximetry 94 Oxygen Delivery Oxygen Flow Rate Fraction of Inspired Oxygen 05/03/24 06:00 05/03/24 06:15 05/03/24 06:45 Temperature Pulse Rate 87 88 89 Respiratory Rate Blood Pressure 125/71 118/84 Pulse Oximetry Oxygen Delivery Oxygen Flow Rate Fraction of Inspired Oxygen 05/03/24 07:45 Temperature Pulse Rate 110 H Respiratory Rate Blood Pressure 112/75 Pulse Oximetry Oxygen Delivery Oxygen Flow Rate Fraction of Inspired Oxygen Intake/Output Intake/Output: Intake & Output 04/30/24 05/01/24 05/02/24 05/03/24 23:59 23:59 23:59 23:59 Intake Total 5214.4 2005.5 Output Total 3645 1100 Balance 1569.4 905.5 Meds/Results Medications: Active Medications Generic Name Dose Route Start Last Admin Trade Name Freq PRN Reason Stop Dose Admin Acetaminophen 650 mg 05/02/24 20:45 05/02/24 20:40 Acetaminophen Elixir 325 Mg/10.15 Ml Udc FEED TUBE 650 mg Q6H PRN Administration Mild Pain (1-3) or Fever Brimonidine Tartrate 1 drop 05/02/24 14:00 05/03/24 05:37 Brimonidine Tartrate 0.2% Op Soln 5 Ml Btl EACH EYE 1 drop Q8HR EVER Administration Brinzolamide 1 drop 05/02/24 14:00 05/03/24 05:36 Brinzolamide 1% Ophth Susp 10 Ml EACH EYE 1 drop Q8HR EVER Administration Heparin Sodium (Porcine) 5,000 units 05/02/24 14:00 05/03/24 05:36 Heparin Sodium 5,000 Units/Ml Vial SUB-Q 5,000 units Q8HR EVER Administration Hydrocortisone Sodium Succinate 100 mg 05/02/24 15:00 05/03/24 05:36 Hydrocortisone Sodium Succinate 100 Mg/2 Ml Vial IV PUSH 100 mg Q8HR EVER Administration Cefepime HCl 2 gm in 50 mls @ 100 mls/hr 05/03/24 03:00 05/03/24 03:35 Maxipime 2 Gm/Ns 50 Ml IVPB Infused Q24H EVER Infusion Metronidazole 500 mg in 100 mls @ 100 mls/hr 05/02/24 12:00 05/03/24 04:10 Flagyl 500 Mg/Iso Soln 100 Ml IVPB Infused Q8H EVER Infusion Norepinephrine Bitartrate 8 mg in 250 mls @ 45 mls/hr 05/02/24 10:40 05/03/24 07:45 Levophed 8 Mg/D5w 250 Ml IV CONT 24 mcg/min .Q5H34M EVER 45 mls/hr Titration Protocol 24 MCG/MIN Vasopressin 100 units/ 100 mls @ 0 mls/hr 05/02/24 11:55 05/03/24 06:00 Dextrose IV CONT 0 units/min .Q0M EVER 0 mls/hr Titration Protocol 0 UNITS/MIN Sodium Bicarbonate 150 meq/ 1,100 mls @ 75 mls/hr 05/02/24 14:15 05/03/24 05:35 Dextrose IV CONT 75 mls/hr .[id number] EVER Administration Phenylephrine HCl 50 mg/ 250 ml in 250 mls @ 12 mls/hr 05/02/24 15:00 05/02/24 19:40 Dextrose IV CONT Not Given .[id number] EVER Protocol 40 MCG/MIN Sodium Chloride 250 mls @ 30 mls/hr 05/03/24 07:40 Normal Saline Iv IV CONT 05/03/24 15:59 .Q8H20M STA Phytonadione 10 mg/ Dextrose 51 mls @ 100 mls/hr 05/03/24 09:00 IVPB 05/03/24 09:30 ONCE ONE Latanoprost 1 drop 05/02/24 21:00 05/02/24 20:48 Latanoprost 0.005% Op Soln 2.5 Ml Btl RIGHT EYE 1 drop HS EVER Administration Ondansetron HCl 4 mg 05/02/24 10:09 05/02/24 16:02 Ondansetron Inj 4 Mg/2 Ml Vial IV PUSH 4 mg Q6H PRN Administration Nausea And Vomiting Pantoprazole Sodium 40 mg 05/03/24 09:00 Pantoprazole Sodium Iv 40 Mg Vial IV PUSH QAM EVER Perflutren Lipid Microsphere 0 ml 05/03/24 07:19 Perflutren Lipid Microspheres 1.5 Ml Vial Diluted To 10 Ml Total Volume IV P USH 05/06/24 07:19 ONCE PRN adequate visualization Protocol Sodium Chloride 10 ml 05/03/24 06:00 05/03/24 06:17 Central Line Flush IV PUSH 10 ml Q8HR EVER Administration Sodium Chloride 20 ml 05/03/24 05:52 Central Line Flush IV PUSH PRN PRN after blood draws Vancomycin HCl 1 each 05/02/24 15:13 Vancomycin For Acute Kidney Injury IVPB PRN PRN Vancomycin Protocol Radiology Results: ITS Impressions Abdomen X-Ray 05/02/24 06:01 Impression: NG tube in satisfactory position. Suspected small bowel obstruction. Renal Ultrasound 05/02/24 15:30 IMPRESSION: 1. Chronic severe left hydronephrosis. Severe left kidney atrophy. 2. Nonobstructing right kidney stone. Abdomen/Pelvis CT 05/02/24 18:09 IMPRESSION: 1. Small bowel obstruction secondary to a left inguinal hernia containing small bowel. 2. Small volume of ascites. 3. Moderate-sized sliding hiatal hernia. 4. Left kidney stones including a stone in the renal pelvis with chronic severe hydronephrosis and severe kidney atrophy. 5. Nonobstructing right kidney stones. Chest X-Ray 05/03/24 05:58 IMPRESSION: 1. Airspace opacities in the lower lung zones with worsening on the left, consistent with atelectasis versus pneumonia. 2. Cardiomegaly. Labs Labs: Laboratory Results - last 24 hr 05/02/24 05/02/24 05/02/24 08:39 13:06 18:06 WBC RBC Hgb Hct MCV MCH MCHC RDW Plt Count MPV Immature Gran % (Auto) Neut % (Auto) Lymph % (Auto) [place] % (Auto) Eos % (Auto) Baso % (Auto) Lymph # (Auto) [place] # (Auto) Eos # (Auto) Baso # (Auto) Abs Immat Gran (auto) Absolute Neuts (auto) Absolute Nucleated RBC Total Counted Neutrophils % (Manual) Band Neutrophils % Lymphocytes % (Manual) Monocytes % (Manual) Eosinophils % (Manual) Promyelocytes % (Man) Nucleated RBC % Abs Neuts (Manual) Abs Lymphs (Manual) Abs Monocytes (Manual) Absolute Eos (Manual) Atypical Lymphocytes Smudge Cells Platelet Estimate Poikilocytosis Anisocytosis [place] Cells Schistocytes PT INR APTT Sodium 140 Potassium 3.8 Chloride 116 H Carbon Dioxide 14 L Anion Gap 10 BUN 57 H Creatinine 2.60 H Estim Creat Clear Calc 21 Estimated GFR 24 L Glucose 96 POC Capillary Glucose 106 H Lactic Acid Calcium 8.3 L Phosphorus 3.0 Magnesium 2.2 Total Bilirubin AST ALT Alkaline Phosphatase Total Creatine Kinase Total Protein Albumin Urine Eosinophils Ur Random Sodium Ur Random Potassium Urine Creatinine Nasal MRSA (PCR) Not detected 05/02/24 05/03/24 05/03/24 18:08 04:49 04:50 WBC 6.1 RBC 4.36 L Hgb 12.4 L Hct 38.3 L MCV 87.8 MCH 28.4 MCHC 32.4 RDW 15.2 H Plt Count 165 MPV 10.1 Immature Gran % (Auto) Not Reportable Neut % (Auto) Not Reportable Lymph % (Auto) Not Reportable [place] % (Auto) Not Reportable Eos % (Auto) Not Reportable Baso % (Auto) Not Reportable Lymph # (Auto) Not Reportable [place] # (Auto) Not Reportable Eos # (Auto) Not Reportable Baso # (Auto) Not Reportable Abs Immat Gran (auto) Not Reportable Absolute Neuts (auto) Not Reportable Absolute Nucleated RBC Not Reportable Total Counted 100 Neutrophils % (Manual) 58 Band Neutrophils % 3 Lymphocytes % (Manual) 27.0 Monocytes % (Manual) 9 Eosinophils % (Manual) 1 Promyelocytes % (Man) 2 Nucleated RBC % Not Reportable Abs Neuts (Manual) 3.72 Abs Lymphs (Manual) 1.64 Abs Monocytes (Manual) 0.54 Absolute Eos (Manual) 0.06 Atypical Lymphocytes Present Smudge Cells Present Platelet Estimate Slightly decreased Poikilocytosis 1+ Anisocytosis 1+ [place] Cells 1+ Schistocytes None seen PT 24.3 H INR 2.1 APTT 42.8 H Sodium 141 Potassium 4.2 Chloride 109 H Carbon Dioxide 17 L Anion Gap 15 H BUN 64 H Creatinine 3.10 H Estim Creat Clear Calc 18 Estimated GFR 19 L Glucose 155 H POC Capillary Glucose Lactic Acid 2.2 H Calcium 8.3 L Phosphorus 5.5 H Magnesium 2.0 Total Bilirubin 1.0 AST 40 ALT 22 Alkaline Phosphatase 42 Total Creatine Kinase 157 Total Protein 6.0 L Albumin 3.8 Urine Eosinophils None seen Ur Random Sodium 17 Ur Random Potassium 56.8 Urine Creatinine 83.4 Nasal MRSA (PCR) 05/03/24 07:55 WBC RBC Hgb Hct MCV MCH MCHC RDW Plt Count MPV Immature Gran % (Auto) Neut % (Auto) Lymph % (Auto) [place] % (Auto) Eos % (Auto) Baso % (Auto) Lymph # (Auto) [place] # (Auto) Eos # (Auto) Baso # (Auto) Abs Immat Gran (auto) Absolute Neuts (auto) Absolute Nucleated RBC Total Counted Neutrophils % (Manual) Band Neutrophils % Lymphocytes % (Manual) Monocytes % (Manual) Eosinophils % (Manual) Promyelocytes % (Man) Nucleated RBC % Abs Neuts (Manual) Abs Lymphs (Manual) Abs Monocytes (Manual) Absolute Eos (Manual) Atypical Lymphocytes Smudge Cells Platelet Estimate Poikilocytosis Anisocytosis [place] Cells Schistocytes PT INR APTT Sodium Potassium Chloride Carbon Dioxide Anion Gap BUN Creatinine Estim Creat Clear Calc Estimated GFR Glucose POC Capillary Glucose Lactic Acid 2.3 H Calcium Phosphorus Magnesium Total Bilirubin AST ALT Alkaline Phosphatase Total Creatine Kinase Total Protein Albumin Urine Eosinophils Ur Random Sodium Ur Random Potassium Urine Creatinine Nasal MRSA (PCR)
[2024-05-03] MEDS: SODIUM CHLORIDE 0.9% IV 250 ML 30 ML IV CONT (08:28)
[2024-05-03] MEDS: PANTOPRAZOLE SODIUM IV 40 MG VIAL IV PUSH (08:28)
[2024-05-03] MEDS: NOREPINEPHRINE 8 MG/D5W 250 ML 8 MG/250 ML BAG 45 MG IV CONT (08:29)
[2024-05-03 08:34] LABS: Vancomycin Random 11.5 ug/mL (10-20)
--- NOTE | 2024-05-03 09:16 | PC.NURSE ---
Fresh Frozen plasma was verified by ely RN and Cherelle Agrawal RN at start of transfusion.
--- NOTE | 2024-05-03 09:44 | ECG_ITS ---
Test Date: 2024-05-03 10:00:29 Measurements Intervals [place] Rate: 114 P: 0 MT: 0 QRS: -19 QRSD: 94 T: 48 QT: 332 QTc: 458 Interpretive Statements ATRIAL FIBRILLATION WITH RAPID VENTRICULAR RESPONSE LOW QRS VOLTAGE IN PRECORDIAL LEADS [QRS DEFLECTION < 1.0 mV IN CHEST LEADS] PATTERN CONSISTENT WITH PULMONARY DISEASE NONSPECIFIC T-WAVE ABNORMALITY WARNING: DATA QUALITY MAY AFFECT INTERPRETATION Compared to ECG 05/02/2024 02:01:35 Low QRS voltage now present T-wave abnormality now present Sinus rhythm no longer present Left anterior fascicular block no longer present Myocardial infarct finding no longer present Electronically Signed On 05-03-2024 10:25:17 [employer] by Naya Watt M.D.
[2024-05-03] MEDS: PHYTONADIONE ADULT INJ 10 MG in DEXTROSE 5% IN WATER 50 ML 100 MG IVPB (09:56)
--- NOTE | 2024-05-03 10:54 | PC.NURSE ---
To OR per bed, IV Right Subclavian central line intact and working. Report given to Dr. Goncalves.
--- NOTE | 2024-05-03 12:00 | WPDHPUPDATE1 ---
History and Physical Update Update Date/Time: 05/03/24 12:00 History and Physical has been reviewed, including an updated exam of the patient. There are NO changes in the patient's condition. Risks, benefits, and alternatives have been discussed and questions answered. Patient agrees to proceed with procedure.
--- NOTE | 2024-05-03 12:02 | WPDANESEPPF ---
Anes - Initial Pre Proc Eval Procedure: Operation Date: 05/03/24 11:00 Proposed Procedures p Incarcerated Left Inguinal Hernia Repair(Left) - Salvador Phillips DO s Possible Bowel Resection - Salvador Phillips DO Date/Time: 05/03/24 12:02 Surgeon: Celeste Delvalle DO Pre Op Diagnosis: SBO Patient Data Age: 83 Gender: M Height: 1.78 m Weight: 89.3 kg Last Vital Signs Temp 36.9 C 05/03/24 10:00 Pulse 111 H 05/03/24 10:30 Resp 19 05/03/24 10:00 BP 117/87 05/03/24 10:30 Pulse Ox 94 05/03/24 10:00 O2 Del Method Nasal Cannula 05/03/24 09:04 O2 Flow Rate 2 05/03/24 09:04 FiO2 28 05/02/24 08:44 Allergies Allergy/AdvReac Type Severity Reaction Status Date / Time Penicillins Allergy Severe Hives Verified 05/02/24 03:01 Home Medications ?Medication ?Instructions ?Recorded ?Confirmed ?Type ascorbic acid (vitamin C) 1,000 mg 1 g PO DAILY 07/27/20 05/02/24 History tablet (Vitamin C) aspirin 81 mg tablet,delayed 81 mg PO HS 07/27/20 05/02/24 History release (Remi Low Dose Aspirin) brinzolamide 1 %-brimonidine 0.2 % 1 drp EACH EYE TID 07/27/20 05/02/24 History eye drops,suspension (Simbrinza) latanoprost 0.005 % eye drops 1 drp RIGHT EYE HS 07/27/20 05/02/24 History vitamin E 400 unit tablet 450 mg PO DAILY 07/27/20 05/02/24 History amlodipine 10 mg tablet 5 mg PO DAILY 04/13/23 05/02/24 History magnesium 200 mg tablet 25 mg PO HS 04/13/23 05/02/24 History folic acid 800 mcg tablet 1 mg PO QAM 04/25/23 05/02/24 History cyanocobalamin (vitamin B-12) 500 1,000 mcg PO DAILY 06/26/23 05/02/24 History mcg tablet multivitamin with minerals-folic 1 tablet PO DAILY 06/26/23 05/02/24 History acid 0.4 mg tablet carboxymethylcellulose sodium 0.5 1 drp EACH EYE TID 07/12/23 05/02/24 History % eye drops in a dropperette coQ10 (ubiquinol) 100 mg capsule 200 mg PO HS 08/08/23 05/02/24 History (Qunol Silas CoQ10) ferrous sulfate 325 mg (65 mg 325 mg PO DAILY 08/08/23 05/02/24 History iron) tablet (Feosol) omeprazole 20 mg tablet,delayed 20 mg PO BID #180 tabs 10/04/23 05/02/24 Rx release diazepam 2 mg tablet 2 mg PO BID vertigo #60 tabs 12/14/23 05/02/24 Rx atenolol 50 mg tablet 50 mg PO QAM #90 tabs 01/01/24 05/02/24 Rx atorvastatin 40 mg tablet 40 mg PO QAM #90 tabs 01/07/24 05/02/24 Rx albuterol sulfate 90 mcg/actuation 2 puff inhalation .q6hr PRN 05/02/24 05/02/24 History aerosol inhaler wheezing apple cider vinegar 250 mg 250 mg PO HS 05/02/24 05/02/24 History chewable tablet budesonide 160 mcg-glycopyr 9 2 inh inhalation BID 05/02/24 05/02/24 History mcg-formot 4.8 mcg/actuation HFA inhaler (Breztri Aerosphere) fluticasone propionate 50 1 spray intranasal HS PRN nasal 05/02/24 05/02/24 History mcg/actuation nasal congestion spray,suspension (24 Hour Allergy Relief) meclizine 25 mg tablet 25 mg PO QID PRN dizziness 05/02/24 05/02/24 History tamsulosin 0.4 mg capsule 0.4 mg PO QHS 05/02/24 05/02/24 History vit C 250 mg-vit E 90 mg-zinc 10 1 cap PO QAM AND QHS 05/02/24 05/02/24 History mg-copper 1 qv-niulhn-wgwear capsule (Eye Health Vitamin-Mineral) Laboratory Tests 05/02/24 05/02/24 05/02/24 13:06 18:06 18:08 WBC RBC Hgb Hct MCV MCH MCHC RDW Plt Count MPV Immature Gran % (Auto) Neut % (Auto) Lymph % (Auto) [place] % (Auto) Eos % (Auto) Baso % (Auto) Lymph # (Auto) [place] # (Auto) Eos # (Auto) Baso # (Auto) Abs Immat Gran (auto) Absolute Neuts (auto) Absolute Nucleated RBC Total Counted Neutrophils % (Manual) Band Neutrophils % Lymphocytes % (Manual) Monocytes % (Manual) Eosinophils % (Manual) Promyelocytes % (Man) Nucleated RBC % Abs Neuts (Manual) Abs Lymphs (Manual) Abs Monocytes (Manual) Absolute Eos (Manual) Atypical Lymphocytes Smudge Cells Platelet Estimate Poikilocytosis Anisocytosis [place] Cells Schistocytes PT INR APTT Sodium 140 mmol/L (137-145) Potassium 3.8 mmol/L (3.4-5.0) Chloride 116 H mmol/L (98-107) Carbon Dioxide 14 L mmol/L (22-30) Anion Gap 10 mmol/L (4-12) BUN 57 H mg/dL (9-20) Creatinine 2.60 H mg/dL (0.7-1.3) Estim Creat Clear Calc 21 ml/min Estimated GFR 24 L (59 - ) Glucose 96 mg/dL (65-110) POC Capillary Glucose 106 H mg/dl (65-105) Lactic Acid Calcium 8.3 L mg/dL (8.4-10.2) Phosphorus 3.0 mg/dL (2.5-4.5) Magnesium 2.2 mg/dL (1.6-2.3) Total Bilirubin AST ALT Alkaline Phosphatase Total Creatine Kinase 157 U/L (55-170) Total Protein Albumin Urine Eosinophils None seen % (None Seen) Ur Random Creatinine Pending Ur Random Sodium 17 meq/L Ur Random Potassium 56.8 meq/L Ur Random Chloride Pending U Random Chloride/Creat Pending Urine Creatinine 83.4 mg/dL Random Vancomycin Blood Type Antibody Screen 05/03/24 05/03/24 05/03/24 04:49 04:50 07:52 WBC 6.1 K/mm3 (4.5-10.0) RBC 4.36 L M/mm3 (4.6-6.20) Hgb 12.4 L g/dL (14.0-18.0) Hct 38.3 L % (42.0-52.0) MCV 87.8 fl (80-100) MCH 28.4 pg (26-34) MCHC 32.4 g/dl (32-36) RDW 15.2 H % (11.5-14.5) Plt Count 165 k/mm3 (150-375) MPV 10.1 fl (7.4-10.4) Immature Gran % (Auto) Not Reportable Neut % (Auto) Not Reportable Lymph % (Auto) Not Reportable [place] % (Auto) Not Reportable Eos % (Auto) Not Reportable Baso % (Auto) Not Reportable Lymph # (Auto) Not Reportable [place] # (Auto) Not Reportable Eos # (Auto) Not Reportable Baso # (Auto) Not Reportable Abs Immat Gran (auto) Not Reportable Absolute Neuts (auto) Not Reportable Absolute Nucleated RBC Not Reportable Total Counted 100 Neutrophils % (Manual) 58 % (46-73) Band Neutrophils % 3 % (0-6) Lymphocytes % (Manual) 27.0 % (18-44) Monocytes % (Manual) 9 % (3-9) Eosinophils % (Manual) 1 % (0-4) Promyelocytes % (Man) 2 % Nucleated RBC % Not Reportable Abs Neuts (Manual) 3.72 K/mm3 (1.3-6.7) Abs Lymphs (Manual) 1.64 K/mm3 (1.1-4.5) Abs Monocytes (Manual) 0.54 K/mm3 (0.1-0.90) Absolute Eos (Manual) 0.06 K/mm3 (0.02-0.50) Atypical Lymphocytes Present Smudge Cells Present Platelet Estimate Slightly decreased (Adequate) Poikilocytosis 1+ Anisocytosis 1+ Katerin Cells 1+ Schistocytes None seen PT 24.3 H Seconds (11.1-14.7) INR 2.1 APTT 42.8 H Seconds (22.3-36.8) Sodium 141 mmol/L (137-145) Potassium 4.2 mmol/L (3.4-5.0) Chloride 109 H mmol/L (98-107) Carbon Dioxide 17 L mmol/L (22-30) Anion Gap 15 H mmol/L (4-12) BUN 64 H mg/dL (9-20) Creatinine 3.10 H mg/dL (0.7-1.3) Estim Creat Clear Calc 18 ml/min Estimated GFR 19 L (59 - ) Glucose 155 H mg/dL (65-110) POC Capillary Glucose Lactic Acid 2.2 H mmol/L (0.7-2.0) Calcium 8.3 L mg/dL (8.4-10.2) Phosphorus 5.5 H mg/dL (2.5-4.5) Magnesium 2.0 mg/dL (1.6-2.3) Total Bilirubin 1.0 mg/dL (0.2-1.3) AST 40 U/L (17-59) ALT 22 U/L (6-50) Alkaline Phosphatase 42 U/L (38-126) Total Creatine Kinase Total Protein 6.0 L g/dL (6.3-8.2) Albumin 3.8 g/dL (3.5-5.1) Urine Eosinophils Ur Random Creatinine Ur Random Sodium Ur Random Potassium Ur Random Chloride U Random Chloride/Creat Urine Creatinine Random Vancomycin Blood Type A Positive Antibody Screen Negative 05/03/24 05/03/24 07:55 07:57 WBC RBC Hgb Hct MCV MCH MCHC RDW Plt Count MPV Immature Gran % (Auto) Neut % (Auto) Lymph % (Auto) [place] % (Auto) Eos % (Auto) Baso % (Auto) Lymph # (Auto) [place] # (Auto) Eos # (Auto) Baso # (Auto) Abs Immat Gran (auto) Absolute Neuts (auto) Absolute Nucleated RBC Total Counted Neutrophils % (Manual) Band Neutrophils % Lymphocytes % (Manual) Monocytes % (Manual) Eosinophils % (Manual) Promyelocytes % (Man) Nucleated RBC % Abs Neuts (Manual) Abs Lymphs (Manual) Abs Monocytes (Manual) Absolute Eos (Manual) Atypical Lymphocytes Smudge Cells Platelet Estimate Poikilocytosis Anisocytosis [place] Cells Schistocytes PT INR APTT Sodium Potassium Chloride Carbon Dioxide Anion Gap BUN Creatinine Estim Creat Clear Calc Estimated GFR Glucose POC Capillary Glucose Lactic Acid 2.3 H mmol/L (0.7-2.0) Calcium Phosphorus Magnesium Total Bilirubin AST ALT Alkaline Phosphatase Total Creatine Kinase Total Protein Albumin Urine Eosinophils Ur Random Creatinine Ur Random Sodium Ur Random Potassium Ur Random Chloride U Random Chloride/Creat Urine Creatinine Random Vancomycin 11.5 ug/mL (10-20) Blood Type Antibody Screen Patient hx anesthesia problems: none Family hx anesthesia problems: none Results Review: All pre-operative results and documents have been reviewed as part of the pre-operative evaluation. 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 The patient has no children. He used to use chewing tobacco but has not used since 2014. No alcohol or drug use Code status - Full Surrogate decision maker - Smoking status: Never smoker Smokeless tobacco user: chewing tobacco Second hand tobacco smoke exposure: No Smoking end date: 07/23/14 Additional smoking assessment comments: STATES CHEWED FROM AGE 15 UNTIL QUITTING IN 2014 Alcohol intake: never Substance use: never Substance use type: does not use Do You Feel Safe in your Home?: Yes Lack of Transportation: No Lack of Food: Never True Current Housing: I Have Housing Concerned About Future Housing: No Difficulty Paying Gas/Electric Bills: No Difficulty Paying for Meds: No Currently Unemployed: No Education: Trade/Vocational Certificate Difficulty w/ Childcare or Family Care: No Living arrangements: with family Gender identity (if verbalized by the patient): Male Spiritual care concerns: No Anes - Eval Final PreProcedure Day of Procedure 05/03/24 12:02 Patient weight: overweight Heart: irregular rhythm Lungs: decreased breath sounds Airway: Mallampati scale class II Neurological: other (alert) Last oral intake: >/= 8 hours ASA classification: IV Emergent: yes Anesthetic plan: proceed Anesthesia type and monitoring: general ETT, standard monitoring and invasive monitoring Results Review: All pre-operative results and documents have been reviewed as part of the pre-operative evaluation. Informed Consent: The patient's anesthetic plan and its attendant risks and benefits were discussed with the patient/family/POA. Questions were solicited and answers provided to the satisfaction of the patient/family/POA.
[2024-05-03] MEDS: BUPIVACAINE/EPINEPHRINE 0.5% 30 ML VIAL INFILTRATE (12:03)
--- NOTE | 2024-05-03 12:03 | WPDANESACPN ---
Arterial Cath Proc Note Consent: Given emergent patient conditions, temporal constraints may have precluded informed consent. Time-Out: A pre-procedural Time-Out was completed immediately before starting the procedure and confirmed: Patient Identification, Site, Procedure, Patient Position and the Availability of Requisite Equipment. Procedure Note Patient position: supine Insertion site: left radial Method of insertion: surface landmarks Site prep: chlorahexadine Skin anesthesia: general anesthesia Gauge: 20 gauge Length (cm): 4.4 cm Closure/Dressing: antimicrobial disc and tegaderm Complications: None immediately noted/suspected.
[2024-05-03 12:18] LABS: PCO2 ABG 36.7 mmHg (35.0-45.0)
[2024-05-03 12:19] LABS: Base Excess ABG -7.3 mEq/l (+/-2.0); HCO3 ABG 18.2 mEq/l (22.0-26.0); Oxygen Saturation ABG 99.4 % (95.0-100.0); PO2 ABG 221.9 mmHg (80.0-100.0)
[2024-05-03 12:20] LABS: Oxygen Content ABG 16.7 %vol (16.0-22.0); Oxyhemoglobin 98.3 % THb (90.0-100.0); Total Hemoglobin 11.7 g/dL (12.0-18.0)
[2024-05-03 12:21] LABS: Fractional Inspired Oxygen 98 %; Site Drawn ARTLINE
[2024-05-03 12:22] LABS: Device OTHER DEVICE
[2024-05-03 12:25] LABS: pH ABG 7.313 (7.350-7.450)
--- NOTE | 2024-05-03 12:28 | PCRCNOTE ---
ABG RESULTS WERE READ TO MANDA FORD R.N. AND VERIFIED. MANDA FORD R.N. THEN GAVE RESULTS TO DR. WEISS IN OR.
--- NOTE | 2024-05-03 12:30 | W.PM.PROC2 ---
Procedure Note - Detailed Date of Procedure 05/03/24 Pre-op Diagnosis Incarcerated left inguinal hernia, small-bowel obstruction, shock Post-op Diagnosis Same (Incarcerated direct left inguinal hernia) Procedure Performed Open incarcerated left inguinal hernia repair with mesh Surgeon Salvador Phillips, DO Anesthesia General and Local (0.5% bupivacaine with epinephrine) Indications This is an 83-year-old man who presented to the emergency department yesterday with nausea and vomiting as well as left groin pain and swelling. He was found to have an incarcerated left inguinal hernia on exam. CT showed evidence of small-bowel obstruction caused by the left inguinal hernia. This was able to be reduced by the ED physician but it then protruded right back out. He was then noted to be hypotensive and in acute renal failure. He was fluid resuscitated and then admitted to the ICU for further treatment. He remained hypotensive in the ICU and required vasopressors. His hernia still remained soft and was reducible but then would protrude right back out shortly after reducing it. A repeat CT was obtained yesterday evening and there did not appear to be any significant changes but he still had a persistent small-bowel obstruction. Decision was made to proceed with open incarcerated left inguinal hernia repair, possible bowel resection. Findings Open incarcerated left inguinal hernia repair was performed. The patient was found to have a direct left inguinal hernia with a rather large hernia sac. Once the hernia sac was isolated from the cord contents and then opened was able to inspect the contents of the hernia sac. There appeared to be a loop of small bowel within the hernia the bowel appeared healthy and viable. There was some mild induration but no signs of ischemia or necrosis. I carefully inspected what other bowel I could deliver through the hernia defect and there were no signs of bowel ischemia. Patient did have some clear yellow ascites coming through the hernia defect but no other abnormal fluid. The hernia sac was excised and peritoneum was closed using a 2-0 silk pursestring suture. The decision was then made to use a large UHS mesh system to repair the defect as well. The mesh was secured in place using 2-0 Prolene simple interrupted sutures. The internal oblique was then reapproximated to the shelving edge of the inguinal ligament to obliterate the direct space over the mesh using 0 Ethibond simple interrupted sutures. Hernia sac was sent to for pathology. A 15 round Ministerio drain was placed within the subcutaneous space to monitor for seroma formation. Description of Procedure Procedure as well as risks, benefits, and alternatives were discussed with the patient. Written consent was obtained and placed in chart prior to procedure. Patient was brought back to surgical suite. He was placed supine on operating table. Time-out was done to confirm patient and procedure. He was then intubated by the anesthesia department. His abdomen and groin area was prepped and draped in sterile fashion using chlorhexidine prep. 0.5% bupivacaine with epinephrine was infiltrated locally around the skin and subcutaneous space. A 8 cm oblique incision was then made in the left lower quadrant using a 15 blade scalpel. Electrocautery was used for hemostasis and for dissection through the subcutaneous tissue. Dissection was carried through Kiera's fascia down to the external oblique aponeurosis. External oblique aponeurosis was cleared to identify the external ring. The external oblique was then incised using electrocautery and then Metzenbaum scissors were then used to extend this incision medially to the external ring. The cord contents and hernia sac were then identified. The cord contents were isolated and a Charlette drain was placed around them. The hernia sac was then carefully dissected free from the cord contents using blunt dissection and electrocautery. This appeared to be a direct inguinal defect. The hernia sac was freed up all the way down to the level of the internal oblique. The hernia sac was then opened using electrocautery and the contents were inspected. Small bowel appeared healthy and viable and was able to be reduced. I then carefully inspected for any other signs of bowel ischemia with any bowel that was protruding somewhere near the hernia defect and no other bowel abnormalities were noted. There was some clear yellowish ascites that was suctioned. A 2-0 silk pursestring suture was then placed around the hernia sac near its base while carefully keeping the small bowel reduced within the abdominal cavity. 2-0 silk pursestring suture was then tied close and the remaining distal and the hernia sac was excised with electrocautery. I then dissected a plane within preperitoneal space to allow for mesh placement. Once in adequate preperitoneal space was dissected I then placed a large UHS hernia system mesh within the preperitoneal space. Then or portion of the mesh was laid out flat within the space. I then closed internal oblique muscle over the mesh by suturing it to the shelving edge of the inguinal ligament and Kerwin's ligament. I then made a slit in the anterior flange of the mesh to for it to sit around the cord contents. The mesh was then secured along the inguinal floor using 2-0 Prolene simple interrupted sutures. A suture was also placed and the Kerwin's ligament near the pubic tubercle to secure the mesh over the medial inguinal floor. The mesh appeared to be sitting in proper position. The external oblique aponeurosis was then reapproximated over the inguinal ligament and inguinal floor using 0 Vicryl running absorbable suture. A 15 round Ministerio drain was then placed within the subcutaneous space and secured using a 3-0 nylon drain stitch. Kiera's fascia was then reapproximated using 3-0 Vicryl simple interrupted sutures. The skin was approximated using 4-0 Monocryl running subcuticular suture. Exofin glue was applied top as a drain sponge and tape. The patient was then awakened from anesthesia, extubated, and transferred to the ICU. Implants Large UHS mesh system Estimated Blood Loss 20 Urine Output 75 Drains Yes (15 round Ministerio drain) Pathology Yes (Left inguinal hernia sac) Complications No immediate complications Condition Critical Disposition ICU [facility] Billing Surgery - Charge Forward: Surgery Billing
--- NOTE | 2024-05-03 13:00 | PC.NURSE ---
Returned from OR per patient's bed. Report received from Monico AGUILAR. Upon arrival Levophed rate at 5mcq/min. Art line and Central line intake.
--- NOTE | 2024-05-03 16:30 | PC.NURSE ---
RN noticed that central line was leaking. RN replaced all cap on central line. Blood pressure was running low as documented, but once caps were replaced blood pressure increased to 180/88. RN then titrated Levophed drip by 5mcq every 5 min as documented until blood pressure was stabilized. Dr. lock notified and aware.
[2024-05-03 16:52] LABS: Hematocrit 31.8 % (42.0-52.0); Hemoglobin 10.6 g/dL (14.0-18.0); Mean Corpuscular HGB Conc 33.3 g/dl (32-36); Mean Corpuscular Hemoglobin 28.5 pg (26-34); Mean Corpuscular Volume 85.5 fl (80-100); Mean Platelet Volume 9.6 fl (7.4-10.4); Platelet Count Result 109 k/mm3 (150-375); Red Blood Count 3.72 M/mm3 (4.6-6.20); Red Cell Distribution Width 15.2 % (11.5-14.5); White Blood Count 3.6 K/mm3 (4.5-10.0)
[2024-05-03] MEDS: VANCOMYCIN 1,500 MG/NS 500 ML 1,500 MG/500 ML BAG 250 MG IVPB (16:53)
[2024-05-03] MEDS: ALBUMIN HUMAN 5% 250 ML IV CONT (17:00)
[2024-05-03 17:02] LABS: Alanine Aminotransferase 24 U/L (6-50); Albumin Level 3.3 g/dL (3.5-5.1); Alkaline Phosphatase 35 U/L (38-126); Anion Gap 10 mmol/L (4-12); Aspartate Amino Transferase 39 U/L (17-59); Bilirubin,Total 0.9 mg/dL (0.2-1.3); Blood Urea Nitrogen 68 mg/dL (9-20); Calcium 7.9 mg/dL (8.4-10.2); Carbon Dioxide 20 mmol/L (22-30); Chloride 110 mmol/L (98-107); Estimated CRCL calculation 17 ml/min; Estimated Glomerular Filt Rate 19; Glucose 116 mg/dL (65-110); Magnesium 2.1 mg/dL (1.6-2.3); Potassium 3.5 mmol/L (3.4-5.0); Sodium 140 mmol/L (137-145)
[2024-05-03 17:03] LABS: INR 1.9; Lactic Acid Reflex 2.3 mmol/L (0.7-2.0); Prothrombin Time 22.8 Seconds (11.1-14.7)
--- NOTE | 2024-05-03 17:28 | P.PNIM_ITS ---
Progress Note: A&P Assessment and Plan (1) Shock: Code(s): R57.9 - Shock, unspecified Status: Acute Assessment and Plan: Patient with septic shock related to incarcerated hernia and SBO Patient was given 3 L fluid resuscitation in ED but remained HoTN. Central line placed and Levophed started. Lactic 4.8 -> 1.4 IV abx started after BCx collected. Patient moved to ICU. Levophed started and SURVEYOR INSTRUMENT ASSISTANT added. BCx NGTD. General surgery consulted and patient went for surgery today Able to wean of SURVEYOR INSTRUMENT ASSISTANT. Levophed at 28mcg/min. Phenylephrine was never started Also started on Solu-Cortef but should try to wean this off quickly since could impede healing process. Apprecaite corner bead operator input (2) SBO (small bowel obstruction): Code(s): K56.609 - Unspecified intestinal obstruction, unspecified as to partial versus complete obstruction Status: Acute Assessment and Plan: Patient with SBO related to left inguinal hernia. NGT placed with 1500mL suctioned and now on LWIS. Hernia was reduced at bedside but with recurrence. Gen Surgery consulted and patient taken for surgery today POD #0 from open incarcerated left inguinal hernia repair with mesh. There was no signs of bowel ischemia. Continue routine post-op care. Continue NGT to suction. Consider starting TPN. (3) Atrial fibrillation: Code(s): I48.91 - Unspecified atrial fibrillation Status: Acute Assessment and Plan: Patient went into AFib this morning. Rate controlled. [id number] at least 3 (age and HTN) Monitor on tele for now (4) Incarcerated left inguinal hernia: Code(s): K40.30 - Unilateral inguinal hernia, with obstruction, without gangrene, not specified as recurrent Status: Acute Assessment and Plan: As above (5) Acute on chronic renal failure: Code(s): N17.9 - Acute kidney failure, unspecified; N18.9 - Chronic kidney disease, unspecified Status: Acute Assessment and Plan: Baseline Cr 1.5-1.7. Cr 2.5 on admission. DANISHA related to above. Fluid resuscitated. Cr worse at 3.1 Monitor renal function, UOP, and electrolytes. (6) Obstructive uropathy: Code(s): N13.9 - Obstructive and reflux uropathy, unspecified Status: Acute Assessment and Plan: CT Abd/Pelvis 05/02 shows multiple nonobstructing right renal stones, markedly enlarged left kidney with marked, severe chronic hydronephrosis and severe diffuse cortical thinning. There is a large, presumably chronically obstructing stone at the left renal pelvis region measuring 3.0 x 2.0 cm in size. Additional smaller nonobstructing left renal stones are also present. Renal US showing chronic severe left hydronephrosis and severe left kidney atrophy UA is not consistent with UTI. Known finding per patient hx. 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 [place] this is an incidental finding and not contributing to his current illness Urology felt the right renal stones should be treated and will arrange for this as outpatient. (7) Rheumatoid arthritis: Qualifiers: Rheumatoid arthritis location: unspecified site Rheumatoid factor presence: unspecified presence Qualified Code(s): M06.9 - Rheumatoid arthritis, unspecified Code(s): M06.9 - Rheumatoid arthritis, unspecified Status: Chronic Assessment and Plan: Hx of RA. No immunosuppressive agents listed. 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 On 4L. Wean O2 as tolerated Follow Plan DVT Prophylaxis - Heparin Code status - Full Subjective Date/time seen: 05/03/24 17:28 Interval history: 83yo male with CKD, RA, psoriasis and BPH here for abdominal pain. Patient back from surgery. Abd pain tolerable. No CP. Patient went into AFb this morning. SURVEYOR INSTRUMENT ASSISTANT weaned off. Exam Narrative: AF 98.5 75/41 86 23 90% 4L Gen - ill appearing male in no acute respiratory distress who is resting quietly lying semi recumbent in bed Chest - lungs clear anteriorly. Left subclavian central line in place. CV - irregularly irregular. Tele showing AFib with controlled. rate Abd - distended, lower dressing clean and dry. Drain in place with serosang fluid in bulb. no BS. - Vann secured draining clear yellow urine Ext - trace pedal edema. Psych - normal mood and affect. Skin - cool and dry. Objective Data Vital Signs Vital Signs: Vital Signs - 24 hr 05/02/24 18:00 05/02/24 18:00 05/02/24 18:00 Temperature Pulse Rate 86 85 82 Respiratory Rate 23 H Blood Pressure 88/60 L 88/60 L Pulse Oximetry 91 Oxygen Delivery Oxygen Flow Rate 05/02/24 18:02 05/02/24 18:02 05/02/24 20:00 Temperature Pulse Rate 86 86 88 Respiratory Rate Blood Pressure 88/60 L 88/60 L 106/71 Pulse Oximetry Oxygen Delivery Oxygen Flow Rate 05/02/24 20:00 05/02/24 20:00 05/02/24 20:00 Temperature 101.2 F H Pulse Rate 88 88 88 Respiratory Rate 25 H 25 H Blood Pressure 106/71 106/71 Pulse Oximetry 97 97 Oxygen Delivery Nasal Cannula Oxygen Flow Rate 2 05/02/24 20:00 05/02/24 20:40 05/02/24 21:40 Temperature 101.2 F H 100.9 F H Pulse Rate 86 Respiratory Rate Blood Pressure Pulse Oximetry Oxygen Delivery Oxygen Flow Rate 05/02/24 22:00 05/02/24 22:00 05/02/24 22:00 Temperature 100.9 F H Pulse Rate 88 88 88 Respiratory Rate 24 H Blood Pressure 116/74 116/74 Pulse Oximetry 96 Oxygen Delivery Oxygen Flow Rate 05/02/24 22:00 05/02/24 22:37 05/02/24 22:37 Temperature Pulse Rate 88 86 86 Respiratory Rate Blood Pressure 116/74 124/68 124/68 Pulse Oximetry Oxygen Delivery Oxygen Flow Rate 05/03/24 00:00 05/03/24 00:00 05/03/24 00:00 Temperature 100.2 F H Pulse Rate 89 89 89 Respiratory Rate 22 H Blood Pressure 133/76 133/76 133/76 Pulse Oximetry 97 Oxygen Delivery Oxygen Flow Rate 05/03/24 00:00 05/03/24 00:00 05/03/24 02:00 Temperature Pulse Rate 88 88 96 Respiratory Rate 21 H Blood Pressure Pulse Oximetry 97 Oxygen Delivery Nasal Cannula Oxygen Flow Rate 2 05/03/24 02:00 05/03/24 02:00 05/03/24 02:00 Temperature 99.6 F Pulse Rate 90 90 90 Respiratory Rate 21 H Blood Pressure 130/77 130/77 130/77 Pulse Oximetry 93 Oxygen Delivery Oxygen Flow Rate 05/03/24 03:10 05/03/24 03:10 05/03/24 04:00 Temperature Pulse Rate 90 90 90 Respiratory Rate Blood Pressure 147/74 H 147/74 H 143/74 H Pulse Oximetry Oxygen Delivery Oxygen Flow Rate 05/03/24 04:00 05/03/24 04:00 05/03/24 04:00 Temperature 99.2 F Pulse Rate 90 90 88 Respiratory Rate 22 H 21 H Blood Pressure 143/81 H 143/74 H Pulse Oximetry 95 97 Oxygen Delivery Nasal Cannula Oxygen Flow Rate 2 05/03/24 04:00 05/03/24 05:15 05/03/24 05:50 Temperature Pulse Rate 90 89 88 Respiratory Rate Blood Pressure 146/80 H 142/79 H Pulse Oximetry Oxygen Delivery Oxygen Flow Rate 05/03/24 06:00 05/03/24 06:00 05/03/24 06:00 Temperature 98.9 F Pulse Rate 88 89 89 Respiratory Rate 20 Blood Pressure 140/70 140/70 140/70 Pulse Oximetry 94 Oxygen Delivery Oxygen Flow Rate 05/03/24 06:00 05/03/24 06:15 05/03/24 06:45 Temperature Pulse Rate 87 88 89 Respiratory Rate Blood Pressure 125/71 118/84 Pulse Oximetry Oxygen Delivery Oxygen Flow Rate 05/03/24 07:45 05/03/24 08:00 05/03/24 08:00 Temperature 98.4 F Pulse Rate 110 H 110 H 111 H Respiratory Rate 18 Blood Pressure 112/75 96/65 L 96/65 L Pulse Oximetry 96 Oxygen Delivery Oxygen Flow Rate 05/03/24 08:00 05/03/24 08:00 05/03/24 08:15 Temperature Pulse Rate 117 H 105 H Respiratory Rate Blood Pressure 88/74 L Pulse Oximetry 95 Oxygen Delivery Nasal Cannula Oxygen Flow Rate 2 05/03/24 08:29 05/03/24 08:36 05/03/24 08:45 Temperature Pulse Rate 110 H 107 H 118 H Respiratory Rate Blood Pressure 88/74 L 110/84 101/58 L Pulse Oximetry Oxygen Delivery Oxygen Flow Rate 05/03/24 09:04 05/03/24 09:07 05/03/24 09:23 Temperature 98.5 F 98.5 F Pulse Rate 105 H 97 Respiratory Rate 20 21 H Blood Pressure 90/72 L 91/80 L Pulse Oximetry 95 95 94 Oxygen Delivery Nasal Cannula Oxygen Flow Rate 2 05/03/24 09:45 05/03/24 09:46 05/03/24 10:00 Temperature 98.4 F Pulse Rate 111 H 101 H 117 H Respiratory Rate 25 H Blood Pressure 106/77 106/77 120/76 Pulse Oximetry 96 Oxygen Delivery Oxygen Flow Rate 05/03/24 10:00 05/03/24 10:00 05/03/24 10:15 Temperature 98.4 F Pulse Rate 108 H 108 H 104 H Respiratory Rate 19 Blood Pressure 120/76 114/84 Pulse Oximetry 94 Oxygen Delivery Oxygen Flow Rate 05/03/24 10:30 05/03/24 13:00 05/03/24 13:00 Temperature Pulse Rate 111 H 100 Respiratory Rate Blood Pressure 117/87 103/57 L Pulse Oximetry 92 Oxygen Delivery Nasal Cannula Oxygen Flow Rate 4 05/03/24 13:00 05/03/24 13:00 05/03/24 13:15 Temperature 98.0 F Pulse Rate 97 93 92 Respiratory Rate 17 Blood Pressure 102/62 109/63 Pulse Oximetry 91 Oxygen Delivery Oxygen Flow Rate 05/03/24 13:54 05/03/24 14:00 05/03/24 14:00 Temperature 98.1 F Pulse Rate 100 90 90 Respiratory Rate 18 Blood Pressure 110/63 104/62 Pulse Oximetry 91 Oxygen Delivery Oxygen Flow Rate 05/03/24 14:00 05/03/24 14:14 05/03/24 14:15 Temperature 98.1 F 98.2 F Pulse Rate 96 94 95 Respiratory Rate 20 17 Blood Pressure 97/55 L Pulse Oximetry Oxygen Delivery Oxygen Flow Rate 05/03/24 14:27 05/03/24 14:32 05/03/24 14:37 Temperature 98.3 F Pulse Rate 92 99 89 Respiratory Rate 17 Blood Pressure 85/60 L 82/48 L 82/49 L Pulse Oximetry 91 Oxygen Delivery Oxygen Flow Rate 05/03/24 14:40 05/03/24 14:45 05/03/24 14:55 Temperature Pulse Rate 85 90 86 Respiratory Rate Blood Pressure 83/49 L 86/51 L 84/48 L Pulse Oximetry Oxygen Delivery Oxygen Flow Rate 05/03/24 15:07 05/03/24 15:14 05/03/24 15:20 Temperature 98.3 F Pulse Rate 88 93 93 Respiratory Rate 17 Blood Pressure 86/51 L 88/50 L 89/51 L Pulse Oximetry 90 Oxygen Delivery Oxygen Flow Rate 05/03/24 15:26 05/03/24 15:32 05/03/24 15:38 Temperature Pulse Rate 89 87 83 Respiratory Rate Blood Pressure 89/52 L 87/50 L 89/51 L Pulse Oximetry Oxygen Delivery Oxygen Flow Rate 05/03/24 16:00 05/03/24 16:00 05/03/24 16:07 Temperature 98.5 F Pulse Rate 84 96 Respiratory Rate 23 H Blood Pressure 92/54 L 93/52 L Pulse Oximetry 90 90 Oxygen Delivery Nasal Cannula Oxygen Flow Rate 4 05/03/24 16:21 05/03/24 16:26 05/03/24 16:32 Temperature Pulse Rate 81 90 85 Respiratory Rate Blood Pressure 85/48 L 90/50 L 84/49 L Pulse Oximetry Oxygen Delivery Oxygen Flow Rate 05/03/24 16:37 Temperature Pulse Rate 86 Respiratory Rate Blood Pressure 75/41 L Pulse Oximetry Oxygen Delivery Oxygen Flow Rate Intake/Output Intake/Output: Intake & Output 04/30/24 05/01/24 05/02/24 05/03/24 23:59 23:59 23:59 23:59 Intake Total 5214.4 3203.4 Output Total 3645 1175 Balance 1569.4 2028.4 Meds/Results Medications: Active Medications Generic Name Dose Route Start Last Admin Trade Name Freq PRN Reason Stop Dose Admin Acetaminophen 650 mg 05/02/24 20:45 05/02/24 20:40 Acetaminophen Elixir 325 Mg/10.15 Ml Udc FEED TUBE 650 mg Q6H PRN Administration Mild Pain (1-3) or Fever Brimonidine Tartrate 1 drop 05/02/24 14:00 05/03/24 13:56 Brimonidine Tartrate 0.2% Op Soln 5 Ml Btl EACH EYE 1 drop Q8HR EVER Administration Brinzolamide 1 drop 05/02/24 14:00 05/03/24 13:56 Brinzolamide 1% Ophth Susp 10 Ml EACH EYE 1 drop Q8HR EVER Administration Heparin Sodium (Porcine) 5,000 units 05/02/24 14:00 05/03/24 05:36 Heparin Sodium 5,000 Units/Ml Vial SUB-Q 5,000 units Q8HR EVER Administration Hydrocortisone Sodium Succinate 100 mg 05/02/24 15:00 05/03/24 13:56 Hydrocortisone Sodium Succinate 100 Mg/2 Ml Vial IV PUSH 100 mg Q8HR EVER Administration Cefepime HCl 2 gm in 50 mls @ 100 mls/hr 05/03/24 03:00 05/03/24 03:35 Maxipime 2 Gm/Ns 50 Ml IVPB Infused Q24H EVER Infusion Metronidazole 500 mg in 100 mls @ 100 mls/hr 05/02/24 12:00 05/03/24 15:00 Flagyl 500 Mg/Iso Soln 100 Ml IVPB Infused Q8H EVER Infusion Norepinephrine Bitartrate 8 mg in 250 mls @ 52.5 mls/hr 05/02/24 10:40 05/03/24 16:37 Levophed 8 Mg/D5w 250 Ml IV CONT 28 mcg/min .Q4H46M EVER 52.5 mls/hr Titration Protocol 28 MCG/MIN Vasopressin 100 units/ 100 mls @ 0 mls/hr 05/02/24 11:55 05/03/24 08:00 Dextrose IV CONT 0 units/min .Q0M EVER 0 mls/hr Titration Protocol 0 UNITS/MIN Sodium Bicarbonate 150 meq/ 1,100 mls @ 75 mls/hr 05/02/24 14:15 05/03/24 05:35 Dextrose IV CONT 75 mls/hr .[id number] EVER Administration Phenylephrine HCl 50 mg/ 250 ml in 250 mls @ 12 mls/hr 05/02/24 15:00 05/02/24 19:40 Dextrose IV CONT Not Given .[id number] EVER Protocol 40 MCG/MIN Vancomycin HCl 1,500 mg in 500 mls @ 250 mls/hr 05/03/24 15:58 05/03/24 16:53 Vancomycin 1,500 Mg/Ns 500 Ml IVPB 05/03/24 17:57 250 mls/hr ONCE ONE Administration Albumin Human 250 mls @ 62.5 mls/hr 05/03/24 16:42 05/03/24 17:00 Albumin Human 5% IV CONT 05/03/24 20:41 62.5 mls/hr .Q4H ONE Administration Latanoprost 1 drop 05/02/24 21:00 05/02/24 20:48 Latanoprost 0.005% Op Soln 2.5 Ml Btl RIGHT EYE 1 drop HS EVER Administration Morphine Sulfate 2 mg 05/03/24 14:22 Morphine Sulfate (*Crx) 2 Mg/Ml Inj IV PUSH Q2H PRN Breakthrough Pain Rated 4-6 or NPO Morphine Sulfate 4 mg 05/03/24 14:22 Morphine Sulfate (*Crx) 4 Mg/Ml Inj IV PUSH Q2H PRN Breakthrough Pain Rated 7-10 or NPO Naloxone HCl 0.1 mg 05/03/24 14:22 Naloxone Hcl 0.4 Mg/Ml Vial IV PUSH Q2M PRN Opiate Reversal Ondansetron HCl 4 mg 05/02/24 10:09 05/02/24 16:02 Ondansetron Inj 4 Mg/2 Ml Vial IV PUSH 4 mg Q6H PRN Administration Nausea And Vomiting Pantoprazole Sodium 40 mg 05/03/24 09:00 05/03/24 08:28 Pantoprazole Sodium Iv 40 Mg Vial IV PUSH 40 mg QAM EVER Administration Perflutren Lipid Microsphere 0 ml 05/03/24 07:19 Perflutren Lipid Microspheres 1.5 Ml Vial Diluted To 10 Ml Total Volume IV PUSH 05/06/24 07:19 ONCE PRN adequate visualization Protocol Sodium Chloride 10 ml 05/03/24 06:00 05/03/24 13:56 Central Line Flush IV PUSH 10 ml Q8HR EVER Administration Sodium Chloride 20 ml 05/03/24 05:52 Central Line Flush IV PUSH PRN PRN after blood draws Vancomycin HCl 1 each 05/02/24 15:13 Vancomycin For Acute Kidney Injury IVPB PRN PRN Vancomycin Protocol Radiology Results: ITS Impressions Abdomen X-Ray 05/02/24 06:01 Impression: NG tube in satisfactory position. Suspected small bowel obstruction. Renal Ultrasound 05/02/24 15:30 IMPRESSION: 1. Chronic severe left hydronephrosis. Severe left kidney atrophy. 2. Nonobstructing right kidney stone. Abdomen/Pelvis CT 05/02/24 18:09 IMPRESSION: 1. Small bowel obstruction secondary to a left inguinal hernia containing small bowel. 2. Small volume of ascites. 3. Moderate-sized sliding hiatal hernia. 4. Left kidney stones including a stone in the renal pelvis with chronic severe hydronephrosis and severe kidney atrophy. 5. Nonobstructing right kidney stones. Chest X-Ray 05/03/24 05:58 IMPRESSION: 1. Airspace opacities in the lower lung zones with worsening on the left, consistent with atelectasis versus pneumonia. 2. Cardiomegaly. Labs Labs: Laboratory Results - last 24 hr 05/02/24 05/02/24 05/03/24 18:06 18:08 04:49 WBC RBC Hgb Hct MCV MCH MCHC RDW Plt Count MPV Immature Gran % (Auto) Neut % (Auto) Lymph % (Auto) [place] % (Auto) Eos % (Auto) Baso % (Auto) Lymph # (Auto) [place] # (Auto) Eos # (Auto) Baso # (Auto) Abs Immat Gran (auto) Absolute Neuts (auto) Absolute Nucleated RBC Total Counted Neutrophils % (Manual) Band Neutrophils % Lymphocytes % (Manual) Monocytes % (Manual) Eosinophils % (Manual) Promyelocytes % (Man) Nucleated RBC % Abs Neuts (Manual) Abs Lymphs (Manual) Abs Monocytes (Manual) Absolute Eos (Manual) Atypical Lymphocytes Smudge Cells Platelet Estimate Poikilocytosis Anisocytosis [place] Cells Schistocytes PT 24.3 H INR 2.1 APTT 42.8 H Puncture Site ABG pH ABG pCO2 ABG pO2 ABG PO2/FiO2 Ratio ABG HCO3 ABG O2 Saturation ABG O2 Content ABG Base Excess A-a Gradient Oxyhemoglobin Total Hemoglobin O2 Delivery Device O2 Liters/Min FiO2 Sodium 141 Potassium 4.2 Chloride 109 H Carbon Dioxide 17 L Anion Gap 15 H BUN 64 H Creatinine 3.10 H Estim Creat Clear Calc 18 Estimated GFR 19 L Glucose 155 H POC Capillary Glucose 106 H Lactic Acid 2.2 H Calcium 8.3 L Phosphorus 5.5 H Magnesium 2.0 Total Bilirubin 1.0 AST 40 ALT 22 Alkaline Phosphatase 42 Total Creatine Kinase 157 Total Protein 6.0 L Albumin 3.8 Urine Eosinophils None seen Ur Random Sodium 17 Ur Random Potassium 56.8 Urine Creatinine 83.4 Random Vancomycin Blood Type Antibody Screen 05/03/24 05/03/24 05/03/24 04:50 07:52 07:55 WBC 6.1 RBC 4.36 L Hgb 12.4 L Hct 38.3 L MCV 87.8 MCH 28.4 MCHC 32.4 RDW 15.2 H Plt Count 165 MPV 10.1 Immature Gran % (Auto) Not Reportable Neut % (Auto) Not Reportable Lymph % (Auto) Not Reportable [place] % (Auto) Not Reportable Eos % (Auto) Not Reportable Baso % (Auto) Not Reportable Lymph # (Auto) Not Reportable [place] # (Auto) Not Reportable Eos # (Auto) Not Reportable Baso # (Auto) Not Reportable Abs Immat Gran (auto) Not Reportable Absolute Neuts (auto) Not Reportable Absolute Nucleated RBC Not Reportable Total Counted 100 Neutrophils % (Manual) 58 Band Neutrophils % 3 Lymphocytes % (Manual) 27.0 Monocytes % (Manual) 9 Eosinophils % (Manual) 1 Promyelocytes % (Man) 2 Nucleated RBC % Not Reportable Abs Neuts (Manual) 3.72 Abs Lymphs (Manual) 1.64 Abs Monocytes (Manual) 0.54 Absolute Eos (Manual) 0.06 Atypical Lymphocytes Present Smudge Cells Present Platelet Estimate Slightly decreased Poikilocytosis 1+ Anisocytosis 1+ [place] Cells 1+ Schistocytes None seen PT INR APTT Puncture Site ABG pH ABG pCO2 ABG pO2 ABG PO2/FiO2 Ratio ABG HCO3 ABG O2 Saturation ABG O2 Content ABG Base Excess A-a Gradient Oxyhemoglobin Total Hemoglobin O2 Delivery Device O2 Liters/Min FiO2 Sodium Potassium Chloride Carbon Dioxide Anion Gap BUN Creatinine Estim Creat Clear Calc Estimated GFR Glucose POC Capillary Glucose Lactic Acid 2.3 H Calcium Phosphorus Magnesium Total Bilirubin AST ALT Alkaline Phosphatase Total Creatine Kinase Total Protein Albumin Urine Eosinophils Ur Random Sodium Ur Random Potassium Urine Creatinine Random Vancomycin Blood Type A Positive Antibody Screen Negative 05/03/24 05/03/24 05/03/24 07:57 11:47 16:47 WBC 3.6 L RBC 3.72 L Hgb 10.6 L Hct 31.8 L MCV 85.5 MCH 28.5 MCHC 33.3 RDW 15.2 H Plt Count 109 L MPV 9.6 Immature Gran % (Auto) Neut % (Auto) Lymph % (Auto) [place] % (Auto) Eos % (Auto) Baso % (Auto) Lymph # (Auto) [place] # (Auto) Eos # (Auto) Baso # (Auto) Abs Immat Gran (auto) Absolute Neuts (auto) Absolute Nucleated RBC Total Counted Neutrophils % (Manual) Band Neutrophils % Lymphocytes % (Manual) Monocytes % (Manual) Eosinophils % (Manual) Promyelocytes % (Man) Nucleated RBC % Abs Neuts (Manual) Abs Lymphs (Manual) Abs Monocytes (Manual) Absolute Eos (Manual) Atypical Lymphocytes Smudge Cells Platelet Estimate Poikilocytosis Anisocytosis [place] Cells Schistocytes PT 22.8 H INR 1.9 APTT Puncture Site Artline ABG pH 7.313 L ABG pCO2 36.7 ABG pO2 221.9 H ABG PO2/FiO2 Ratio Not Reportable ABG HCO3 18.2 L ABG O2 Saturation 99.4 ABG O2 Content 16.7 ABG Base Excess -7.3 A-a Gradient Not Reportable Oxyhemoglobin 98.3 Total Hemoglobin 11.7 L O2 Delivery Device Other device O2 Liters/Min 0.0 FiO2 98 Sodium 140 Potassium 3.5 Chloride 110 H Carbon Dioxide 20 L Anion Gap 10 BUN 68 H Creatinine 3.20 H Estim Creat Clear Calc 17 Estimated GFR 19 L Glucose 116 H POC Capillary Glucose Lactic Acid 2.3 H Calcium 7.9 L Phosphorus 5.0 H Magnesium 2.1 Total Bilirubin 0.9 AST 39 ALT 24 Alkaline Phosphatase 35 L Total Creatine Kinase Total Protein 6.0 L Albumin 3.3 L Urine Eosinophils Ur Random Sodium Ur Random Potassium Urine Creatinine Random Vancomycin 11.5 Blood Type Antibody Screen
[2024-05-03] MEDS: NOREPINEPHRINE 8 MG/D5W 250 ML 8 MG/250 ML BAG 9.38 MG IV CONT (20:00)
[2024-05-03] MEDS: LATANOPROST 0.005% OP SOLN 2.5 ML BTL 1 DROP RIGHT EYE (20:15)
--- NOTE | 2024-05-03 22:55 | PC.NURSE ---
Left radial A-line waveform dampened, sluggish to flush, dressing changed, flushes easily, waveform appropriate.
[2024-05-04] VITALS (33 sets, daily range): BP systolic 89–127; BP diastolic 47–92; PULSE 88–120; RESP 12–21; TEMP 36.8–37.7; O2SAT 90–98
[2024-05-04 05:04] LABS: Hematocrit 32.4 % (42.0-52.0); Hemoglobin 10.4 g/dL (14.0-18.0); Immature Granulocyte Absolute 0.31 K/mm3 (0.00-0.031); Immature Granulocyte Percent A 3.9 % (0-0.5); Lymphocytes Absolute Auto 0.38 K/mm3 (0.9-3.2); Lymphocytes Percent Auto 4.8 % (18.3-44.2); Mean Corpuscular HGB Conc 32.1 g/dl (32-36); Mean Corpuscular Hemoglobin 27.4 pg (26-34); Mean Corpuscular Volume 85.5 fl (80-100); Mean Platelet Volume 10.4 fl (7.4-10.4); Monocytes Absolute Auto 0.5 K/mm3 (0.1-0.6); Monocytes Percent Auto 6.3 % (2.6-8.5); Neutrophils Absolute Auto 6.7 K/mm3 (1.3-6.7); Platelet Count Result 108 k/mm3 (150-375); Red Blood Count 3.79 M/mm3 (4.6-6.20); Red Cell Distribution Width 15.3 % (11.5-14.5); White Blood Count 7.9 K/mm3 (4.5-10.0)
[2024-05-04 05:17] LABS: INR 1.6; Prothrombin Time 19.6 Seconds (11.1-14.7)
[2024-05-04 05:18] LABS: Partial Thromboplastin Time 39.8 Seconds (22.3-36.8)
[2024-05-04 05:24] LABS: Alanine Aminotransferase 24 U/L (6-50); Albumin Level 3.5 g/dL (3.5-5.1); Alkaline Phosphatase 44 U/L (38-126); Anion Gap 8 mmol/L (4-12); Aspartate Amino Transferase 34 U/L (17-59); Bilirubin,Total 0.8 mg/dL (0.2-1.3); Blood Urea Nitrogen 69 mg/dL (9-20); Carbon Dioxide 26 mmol/L (22-30); Chloride 109 mmol/L (98-107); Estimated CRCL calculation 18 ml/min; Estimated Glomerular Filt Rate 19; Glucose 134 mg/dL (65-110); Lipase 18 U/L (23-300); Magnesium 2.2 mg/dL (1.6-2.3); Phosphorus 4.3 mg/dL (2.5-4.5); Potassium 3.3 mmol/L (3.4-5.0); Sodium 143 mmol/L (137-145)
[2024-05-04 05:29] LABS: Lactic Acid Reflex 1.5 mmol/L (0.7-2.0)
[2024-05-04 05:48] LABS: CRP 35.1 mg/dL (<1.0)
[2024-05-04 05:49] LABS: Anisocytosis 1+; Platelet Estimate Slightly Decreased (Adequate)
[2024-05-04 05:50] LABS: Poikilocytosis 1+; Schistocytes None Seen
[2024-05-04] MEDS: CEFEPIME 2 GM/NS 50 ML 2 GM/50 ML BAG IVPB (06:18)
[2024-05-04] MEDS: HYDROCORTISONE SODIUM SUCCINATE 100 MG/2 ML VIAL IV PUSH (06:19)
[2024-05-04] MEDS: BRINZOLAMIDE 1% OPHTH SUSP 10 ML 1 DROP EACH EYE ×3 (06:19→21:37)
[2024-05-04] MEDS: CENTRAL LINE FLUSH 10 ML IV PUSH ×3 (06:19→21:23)
[2024-05-04] MEDS: metroNIDAZOLE 500 MG/ISO 100ML 500 MG/100 ML BAG 100 MG IVPB ×3 (06:19→21:07)
[2024-05-04] MEDS: HEPARIN SODIUM 5,000 UNITS/ML VIAL 5000 UNITS SUB-Q ×3 (06:20→21:22)
[2024-05-04] MEDS: BRIMONIDINE TARTRATE 0.2% OP SOLN 5 ML BTL 1 DROP EACH EYE ×3 (06:20→22:11)
--- NOTE | 2024-05-04 08:19 | PM.CNNEP ---
Assessment and Plan Assessment and plan (1) Acute on chronic renal failure: Code(s): N17.9 - Acute kidney failure, unspecified; N18.9 - Chronic kidney disease, unspecified Status: Acute Assessment and Plan: Dylan has chronic renal insufficiency. He has one chronic obstructed kidney which is contributing very little to the overall function. Thus he is living off of 1 kidney. This would explain his mildly elevated creatinine at baseline. The patient has acute kidney injury as well. Renal ultrasound shows nothing acute in the right kidney. Course shows the chronically obstructed left kidney. Urine electrolytes are pre renal. He has several things that could cause this. His creatinine was 2.5 on admission. I suspect that his acute kidney injury was already in process and that his baseline creatinine is probably better than this. The patient had contrast in the emergency room, very necessary in this situation, of course. The patient could have an element of contrast nephropathy. The patient also has infection which can affect the kidneys as well. In addition the patient has hypotension requiring pressors which can also affect the kidneys The patient was probably dehydrated when he came in his of his GI process. At this point his blood pressures look better. He is off the pressors and his blood pressure is doing pretty well at around 100. Generally contrast nephropathy is self-limited and this contribution should be improving with time. The patient is on antibiotics so the infectious contribution to this process should be improving as well. He had surgery to help with the hernia/obstruction. Hopefully his creatinine will start to improve. It seems like it has plateaued over the last couple of days. We will check a CPK to be sure there is nothing else going on. We will continue antibiotics. (2) Atrial fibrillation: Code(s): I48.91 - Unspecified atrial fibrillation Status: Acute Assessment and Plan: Heart rate is good. Anticoagulation per surgery/service (3) SBO (small bowel obstruction): Code(s): K56.609 - Unspecified intestinal obstruction, unspecified as to partial versus complete obstruction Status: Acute Assessment and Plan: He had surgery yesterday. History of Present Illness Reason for Consult Consult date: 05/04/24 Chief Complaint Chief complaint: SBO History of Present Illness Narrative: Very pleasant 83-year-old gentleman who has multiple medical problems including an inguinal hernia, hyperlipidemia, nephrolithiasis with a chronic obstructed left kidney, rheumatoid arthritis, granulomatous lung disease, chronic kidney disease, glaucoma, psoriatic arthritis, psoriasis. Patient has had an inguinal hernia that is been bothering him. Back in 2006 he had a right inguinal hernia repair. Than 1 month ago he was loading firewood developed pain in the groin. He has been nursing this since then lately the patient's pain has gotten worse. He developed nausea and vomiting. He came to the ER and was found to have an obstruction. He was seen by surgery. At 1st they tried conservative measures with reduction of the hernia however things continue to get worse so he went to the operating room yesterday. The hernia was repaired and he is back in the ICU. His creatinine has been ranged between 1.2 and 1.6 over the last few years. He is felt to have chronic kidney disease. On admission here the creatinine was 2.5. In the emergency room he did have contrast. He also had hypotension requiring pressors during the course of the hospitalization. Course he has had infection with the process as above. His creatinine fidel to 3.1 and 3.2 yesterday and is 3.1 again today. Renal consultation was requested yes but he was in the operating room when I came by. This morning he feels much better. His belly is still distended and there is some discomfort. He has not passed any gas. He is only on 2L of oxygen. See he is making some urine. His pressure requirements have improved since surgery. His systolic has been ranging between 99 and 123. He is currently on antibiotics. He is not on any nephrotoxic medications. Review of Systems Constitutional: Constitutional: Reports no additional constitutional complaints Eyes: Eyes: Reports no additional eye complaints ENT: Reports system reviewed and no additional complaints, except as documented Cardiovascular: Cardiovascular: Reports no additional cardiovascular complaints Respiratory: Respiratory: Reports no additional respiratory complaints Gastrointestinal: Gastrointestinal: Reports no additional gastrointestinal complaints Genitourinary: Genitourinary: Reports no additional male genitourinary complaints Musculoskeletal: Musculoskeletal: Reports no additional musculoskeletal complaints Integumentary/Breasts: Skin/Breast: Reports system reviewed and no additional complaints, except as docu Neurologic: Reports system reviewed and no additional complaints, except as documented Psychiatric: Psychiatric: Reports no additional psychiatric complaints Endocrine: Endocrine: Reports no additional endocrine complaints [facility] Past Medical History Medical History History of kidney stones 1966,1976 removal CKD (chronic kidney disease) Granulomatous lung disease Rheumatoid arthritis Serology diagnosis Glaucoma Nephrolithiasis BPH (benign prostatic hyperplasia) Psoriatic arthritis Psoriasis Hyperlipidemia Surgical History Surgical History History of left inguinal hernia repair (04/2024) Open, for incarcerated hernia 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 The patient has no children. He used to use chewing tobacco but has not used since 2014. No alcohol or drug use Code status - Full Surrogate decision maker - Smoking status: Never smoker Smokeless tobacco user: chewing tobacco Second hand tobacco smoke exposure: No Smoking end date: 07/23/14 Additional smoking assessment comments: STATES CHEWED FROM AGE 15 UNTIL QUITTING IN 2014 Alcohol intake: never Substance use: never Substance use type: does not use Do You Feel Safe in your Home?: Yes Lack of Transportation: No Lack of Food: Never True Current Housing: I Have Housing Concerned About Future Housing: No Difficulty Paying Gas/Electric Bills: No Difficulty Paying for Meds: No Currently Unemployed: No Education: Trade/Vocational Certificate Difficulty w/ Childcare or Family Care: No Living arrangements: with family Gender identity (if verbalized by the patient): Male Spiritual care concerns: No Meds Home Medications and Allergies Home Medications ?Medication ?Instructions ?Recorded ?Confirmed ?Type ascorbic acid (vitamin C) 1,000 mg 1 g PO DAILY 07/27/20 05/02/24 History tablet (Vitamin C) aspirin 81 mg tablet,delayed 81 mg PO HS 07/27/20 05/02/24 History release (Remi Low Dose Aspirin) brinzolamide 1 %-brimonidine 0.2 % 1 drp EACH EYE TID 07/27/20 05/02/24 History eye drops,suspension (Simbrinza) latanoprost 0.005 % eye drops 1 drp RIGHT EYE HS 07/27/20 05/02/24 History vitamin E 400 unit tablet 450 mg PO DAILY 07/27/20 05/02/24 History amlodipine 10 mg tablet 5 mg PO DAILY 04/13/23 05/02/24 History magnesium 200 mg tablet 25 mg PO HS 04/13/23 05/02/24 History folic acid 800 mcg tablet 1 mg PO QAM 04/25/23 05/02/24 History cyanocobalamin (vitamin B-12) 500 1,000 mcg PO DAILY 06/26/23 05/02/24 History mcg tablet multivitamin with minerals-folic 1 tablet PO DAILY 06/26/23 05/02/24 History acid 0.4 mg tablet carboxymethylcellulose sodium 0.5 1 drp EACH EYE TID 07/12/23 05/02/24 History % eye drops in a dropperette coQ10 (ubiquinol) 100 mg capsule 200 mg PO HS 08/08/23 05/02/24 History (Qunol Silas CoQ10) ferrous sulfate 325 mg (65 mg 325 mg PO DAILY 08/08/23 05/02/24 History iron) tablet (Feosol) omeprazole 20 mg tablet,delayed 20 mg PO BID #180 tabs 10/04/23 05/02/24 Rx release diazepam 2 mg tablet 2 mg PO BID vertigo #60 tabs 12/14/23 05/02/24 Rx atenolol 50 mg tablet 50 mg PO QAM #90 tabs 01/01/24 05/02/24 Rx atorvastatin 40 mg tablet 40 mg PO QAM #90 tabs 01/07/24 05/02/24 Rx albuterol sulfate 90 mcg/actuation 2 puff inhalation .q6hr PRN 05/02/24 05/02/24 History aerosol inhaler wheezing apple cider vinegar 250 mg 250 mg PO HS 05/02/24 05/02/24 History chewable tablet budesonide 160 mcg-glycopyr 9 2 inh inhalation BID 05/02/24 05/02/24 History mcg-formot 4.8 mcg/actuation HFA inhaler (Breztri Aerosphere) fluticasone propionate 50 1 spray intranasal HS PRN nasal 05/02/24 05/02/24 History mcg/actuation nasal congestion spray,suspension (24 Hour Allergy Relief) meclizine 25 mg tablet 25 mg PO QID PRN dizziness 05/02/24 05/02/24 History tamsulosin 0.4 mg capsule 0.4 mg PO QHS 05/02/24 05/02/24 History vit C 250 mg-vit E 90 mg-zinc 10 1 cap PO QAM AND QHS 05/02/24 05/02/24 History mg-copper 1 [id number] capsule ([facility] Vitamin-Mineral) Allergies Allergy/AdvReac Type Severity Reaction Status Date / Time Penicillins Allergy Severe Hives Verified 05/02/24 03:01 Vital Signs Vital Signs - 24 hr 05/03/24 08:29 05/03/24 08:36 05/03/24 08:45 Temperature Pulse Rate 110 H 107 H 118 H Respiratory Rate Blood Pressure 88/74 L 110/84 101/58 L Pulse Oximetry Oxygen Delivery Oxygen Flow Rate 05/03/24 09:04 05/03/24 09:07 05/03/24 09:23 Temperature 98.5 F 98.5 F Pulse Rate 105 H 97 Respiratory Rate 20 21 H Blood Pressure 90/72 L 91/80 L Pulse Oximetry 95 95 94 Oxygen Delivery Nasal Cannula Oxygen Flow Rate 2 05/03/24 09:45 05/03/24 09:46 05/03/24 10:00 Temperature 98.4 F Pulse Rate 111 H 101 H 117 H Respiratory Rate 25 H Blood Pressure 106/77 106/77 120/76 Pulse Oximetry 96 Oxygen Delivery Oxygen Flow Rate 05/03/24 10:00 05/03/24 10:00 05/03/24 10:15 Temperature 98.4 F Pulse Rate 108 H 108 H 104 H Respiratory Rate 19 Blood Pressure 120/76 114/84 Pulse Oximetry 94 Oxygen Delivery Oxygen Flow Rate 05/03/24 10:30 05/03/24 13:00 05/03/24 13:00 Temperature Pulse Rate 111 H 100 Respiratory Rate Blood Pressure 117/87 103/57 L Pulse Oximetry 92 Oxygen Delivery Nasal Cannula Oxygen Flow Rate 4 05/03/24 13:00 05/03/24 13:00 05/03/24 13:15 Temperature 98.0 F Pulse Rate 97 93 92 Respiratory Rate 17 Blood Pressure 102/62 109/63 Pulse Oximetry 91 Oxygen Delivery Oxygen Flow Rate 05/03/24 13:54 05/03/24 14:00 12/21/24 14:00 Temperature 98.1 F Pulse Rate 100 90 90 Respiratory Rate 18 Blood Pressure 110/63 104/62 Pulse Oximetry 91 Oxygen Delivery Oxygen Flow Rate 05/03/24 14:00 05/03/24 14:14 05/03/24 14:15 Temperature 98.1 F 98.2 F Pulse Rate 96 94 95 Respiratory Rate 20 17 Blood Pressure 97/55 L Pulse Oximetry Oxygen Delivery Oxygen Flow Rate 05/03/24 14:27 05/03/24 14:32 05/03/24 14:37 Temperature 98.3 F Pulse Rate 92 99 89 Respiratory Rate 17 Blood Pressure 85/60 L 82/48 L 82/49 L Pulse Oximetry 91 Oxygen Delivery Oxygen Flow Rate 05/03/24 14:40 05/03/24 14:45 05/03/24 14:55 Temperature Pulse Rate 85 90 86 Respiratory Rate Blood Pressure 83/49 L 86/51 L 84/48 L Pulse Oximetry Oxygen Delivery Oxygen Flow Rate 05/03/24 15:07 05/03/24 15:14 05/03/24 15:20 Temperature 98.3 F Pulse Rate 88 93 93 Respiratory Rate 17 Blood Pressure 86/51 L 88/50 L 89/51 L Pulse Oximetry 90 Oxygen Delivery Oxygen Flow Rate 05/03/24 15:26 05/03/24 15:32 05/03/24 15:38 Temperature Pulse Rate 89 87 83 Respiratory Rate Blood Pressure 89/52 L 87/50 L 89/51 L Pulse Oximetry Oxygen Delivery Oxygen Flow Rate 05/03/24 16:00 05/03/24 16:00 05/03/24 16:00 Temperature Pulse Rate 84 92 Respiratory Rate Blood Pressure 92/54 L Pulse Oximetry 90 Oxygen Delivery Nasal Cannula Oxygen Flow Rate 4 05/03/24 16:07 05/03/24 16:21 05/03/24 16:26 Temperature 98.5 F Pulse Rate 96 81 90 Respiratory Rate 23 H Blood Pressure 93/52 L 85/48 L 90/50 L Pulse Oximetry 90 Oxygen Delivery Oxygen Flow Rate 05/03/24 16:32 05/03/24 16:37 05/03/24 16:42 Temperature Pulse Rate 85 86 91 Respiratory Rate Blood Pressure 84/49 L 75/41 L 90/49 L Pulse Oximetry Oxygen Delivery Oxygen Flow Rate 05/03/24 16:47 05/03/24 16:52 05/03/24 16:57 Temperature Pulse Rate 96 99 108 H Respiratory Rate Blood Pressure 108/62 180/88 H 159/76 H Pulse Oximetry Oxygen Delivery Oxygen Flow Rate 05/03/24 17:02 05/03/24 17:07 05/03/24 18:00 Temperature Pulse Rate 105 H 107 H 91 Respiratory Rate Blood Pressure 137/63 125/60 Pulse Oximetry Oxygen Delivery Oxygen Flow Rate 05/03/24 18:00 05/03/24 20:00 05/03/24 20:00 Temperature 98.6 F Pulse Rate 91 92 94 Respiratory Rate 13 Blood Pressure 96/46 L 100/54 L 100/54 L Pulse Oximetry 97 Oxygen Delivery Oxygen Flow Rate 05/03/24 20:00 05/03/24 20:00 05/03/24 20:00 Temperature Pulse Rate 98 98 101 H Respiratory Rate 13 Blood Pressure 100/54 L Pulse Oximetry 97 Oxygen Delivery Nasal Cannula Oxygen Flow Rate 2 05/03/24 20:34 05/03/24 20:45 05/03/24 22:00 Temperature 98.7 F Pulse Rate 98 99 101 H Respiratory Rate 14 Blood Pressure 92/49 L 103/54 L 102/73 Pulse Oximetry 96 Oxygen Delivery Oxygen Flow Rate 05/03/24 22:00 05/03/24 22:00 05/03/24 23:00 Temperature Pulse Rate 116 H 101 H 103 H Respiratory Rate Blood Pressure 87/54 L 104/51 L Pulse Oximetry Oxygen Delivery Oxygen Flow Rate 05/04/24 00:00 05/04/24 00:00 05/04/24 00:00 Temperature 98.4 F Pulse Rate 103 H 103 H 101 H Respiratory Rate 14 Blood Pressure 113/57 L 113/74 Pulse Oximetry 97 Oxygen Delivery Oxygen Flow Rate 05/04/24 00:00 05/04/24 00:00 05/04/24 02:00 Temperature Pulse Rate 98 103 H 105 H Respiratory Rate 13 Blood Pressure 113/57 L Pulse Oximetry 97 Oxygen Delivery Nasal Cannula Oxygen Flow Rate 2 05/04/24 02:00 05/04/24 02:00 05/04/24 03:00 Temperature 98.2 F Pulse Rate 105 H 102 H 104 H Respiratory Rate 13 Blood Pressure 113/56 L 116/57 L 125/65 Pulse Oximetry 97 Oxygen Delivery Oxygen Flow Rate 05/04/24 03:15 05/04/24 03:30 05/04/24 04:00 Temperature Pulse Rate 105 H 103 H 101 H Respiratory Rate Blood Pressure 121/63 114/56 L 110/54 L Pulse Oximetry Oxygen Delivery Oxygen Flow Rate 05/04/24 04:00 05/04/24 04:00 05/04/24 04:00 Temperature 98.2 F Pulse Rate 120 H 120 H 98 Respiratory Rate 12 13 Blood Pressure 116/57 L 110/57 L Pulse Oximetry 98 97 Oxygen Delivery Nasal Cannula Oxygen Flow Rate 2 05/04/24 04:00 05/04/24 05:15 05/04/24 05:30 Temperature Pulse Rate 97 101 H 99 Respiratory Rate Blood Pressure 123/61 105/54 L Pulse Oximetry Oxygen Delivery Oxygen Flow Rate 05/04/24 06:00 05/04/24 06:00 05/04/24 06:00 Temperature 98.2 F Pulse Rate 95 93 93 Respiratory Rate 12 Blood Pressure 99/51 L 99/51 L Pulse Oximetry 98 Oxygen Delivery Oxygen Flow Rate Exam Narrative: Exam Narrative: Well developed well-nourished in no acute distress Skin is warm and dry without rash Head normocephalic atraumatic Eyes normal sclerae and conjunctivae Mouth normal lips teeth and gums Neck no nodes no thyromegaly no carotid bruits Axillae no nodes Back no CVA tenderness Lungs symmetric and clear to auscultation and percussion Heart normal rate and irregularly irregular rhythm without rub or gallop Abdomen bowel sounds positive soft nontender, no HSM, masses, or bruits. Extremities no cyanosis, clubbing, or edema Pulses 2+ equal in radial arteries Psychological not anxious or depressed Neuro alert and oriented x3 motor 5/5 cranial nerves 2-12 intact reflexes 2+ and equal in the biceps and patellar tendons cerebellar normal rapid alternating movements Results Lab Results 05/04/24 04:48 05/04/24 04:48 Lab results: Most recent lab results ABG pH 7.313 (7.350-7.450) L 05/03/24 11:47 ABG pCO2 36.7 mmHg (35.0-45.0) 05/03/24 11:47 ABG pO2 221.9 mmHg (80.0-100.0) H 05/03/24 11:47 ABG HCO3 18.2 mEq/l (22.0-26.0) L 05/03/24 11:47 ABG O2 Saturation 99.4 % (95.0-100.0) 05/03/24 11:47 Calcium 8.0 mg/dL (8.4-10.2) L 05/04/24 04:48 Phosphorus 4.3 mg/dL (2.5-4.5) 05/04/24 04:48 Magnesium 2.2 mg/dL (1.6-2.3) 05/04/24 04:48 Urine Creatinine 83.4 mg/dL 05/02/24 18:08
[2024-05-04] MEDS: PANTOPRAZOLE SODIUM IV 40 MG VIAL IV PUSH (09:26)
[2024-05-04] MEDS: KCL 40 MEQ/WATER 100 ML 100 ML 25 ML IVPB (09:26)
[2024-05-04 09:43] LABS: Creatine Kinase 102 U/L (55-170)
--- NOTE | 2024-05-04 10:02 | P.PNGS_ITS ---
Progress Note: A&P Assessment and Plan (1) Incarcerated left inguinal hernia: Code(s): K40.30 - Unilateral inguinal hernia, with obstruction, without gangrene, not specified as recurrent Status: Acute Assessment and Plan: * Improving on POD#1. * OK to get up to chair once off Levophed. * Await return of bowel function * Monitor drain output (2) SBO (small bowel obstruction): Code(s): K56.609 - Unspecified intestinal obstruction, unspecified as to partial versus complete obstruction Status: Acute Assessment and Plan: * Resolved with repair of hernia. Mild delay in function or postop ileus could be expected. Consider TPN if bowel function not improving in 1-2 days. (3) Acute on chronic renal failure: Code(s): N17.9 - Acute kidney failure, unspecified; N18.9 - Chronic kidney disease, unspecified Status: Acute Assessment and Plan: * Cr slightly better today. 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 (6) Atrial fibrillation: Code(s): I48.91 - Unspecified atrial fibrillation Status: Acute Subjective Subjective Date/Time Seen: 05/04/24 10:02 Interval history: Feeling better today. Pain controlled. No flatus or BM yet. Nurse reports Levophed is down to 1 mcg/min. Exam GI: Inspection: distended, incision (intact with glue) and other (RAKAN serosanguinous) GI Palp: Yes Soft to palpation, Yes Tenderness to palpation present (GI) (minimal generalized), No Guarding due to palpation present (GI) and No Rebound tenderness present Auscultation: Hypoactive bowel sounds present : Scrotum: no inguinal hernias Objective Data Vital Signs Vital Signs: Vital Signs - 24 hr 05/03/24 10:15 05/03/24 10:30 05/03/24 13:00 Temperature Pulse Rate 104 H 111 H 100 Respiratory Rate Blood Pressure 114/84 117/87 103/57 L Pulse Oximetry Oxygen Delivery Oxygen Flow Rate Fraction of Inspired Oxygen 05/03/24 13:00 05/03/24 13:00 05/03/24 13:00 Temperature 98.0 F Pulse Rate 97 93 Respiratory Rate 17 Blood Pressure 102/62 Pulse Oximetry 92 91 Oxygen Delivery Nasal Cannula Oxygen Flow Rate 4 Fraction of Inspired Oxygen 05/03/24 13:15 05/03/24 13:54 05/03/24 14:00 Temperature Pulse Rate 92 100 90 Respiratory Rate Blood Pressure 109/63 110/63 Pulse Oximetry Oxygen Delivery Oxygen Flow Rate Fraction of Inspired Oxygen 05/03/24 14:00 05/03/24 14:00 05/03/24 14:14 Temperature 98.1 F 98.1 F Pulse Rate 90 96 94 Respiratory Rate 18 20 Blood Pressure 104/62 97/55 L Pulse Oximetry 91 Oxygen Delivery Oxygen Flow Rate Fraction of Inspired Oxygen 05/03/24 14:15 05/03/24 14:27 05/03/24 14:32 Temperature 98.2 F Pulse Rate 95 92 99 Respiratory Rate 17 Blood Pressure 85/60 L 82/48 L Pulse Oximetry Oxygen Delivery Oxygen Flow Rate Fraction of Inspired Oxygen 05/03/24 14:37 05/03/24 14:40 05/03/24 14:45 Temperature 98.3 F Pulse Rate 89 85 90 Respiratory Rate 17 Blood Pressure 82/49 L 83/49 L 86/51 L Pulse Oximetry 91 Oxygen Delivery Oxygen Flow Rate Fraction of Inspired Oxygen 05/03/24 14:55 05/03/24 15:07 05/03/24 15:14 Temperature 98.3 F Pulse Rate 86 88 93 Respiratory Rate 17 Blood Pressure 84/48 L 86/51 L 88/50 L Pulse Oximetry 90 Oxygen Delivery Oxygen Flow Rate Fraction of Inspired Oxygen 05/03/24 15:20 05/03/24 15:26 05/03/24 15:32 Temperature Pulse Rate 93 89 87 Respiratory Rate Blood Pressure 89/51 L 89/52 L 87/50 L Pulse Oximetry Oxygen Delivery Oxygen Flow Rate Fraction of Inspired Oxygen 05/03/24 15:38 05/03/24 16:00 05/03/24 16:00 Temperature Pulse Rate 83 84 Respiratory Rate Blood Pressure 89/51 L 92/54 L Pulse Oximetry 90 Oxygen Delivery Nasal Cannula Oxygen Flow Rate 4 Fraction of Inspired Oxygen 05/03/24 16:00 05/03/24 16:07 05/03/24 16:21 Temperature 98.5 F Pulse Rate 92 96 81 Respiratory Rate 23 H Blood Pressure 93/52 L 85/48 L Pulse Oximetry 90 Oxygen Delivery Oxygen Flow Rate Fraction of Inspired Oxygen 05/03/24 16:26 05/03/24 16:32 05/03/24 16:37 Temperature Pulse Rate 90 85 86 Respiratory Rate Blood Pressure 90/50 L 84/49 L 75/41 L Pulse Oximetry Oxygen Delivery Oxygen Flow Rate Fraction of Inspired Oxygen 05/03/24 16:42 05/03/24 16:47 05/03/24 16:52 Temperature Pulse Rate 91 96 99 Respiratory Rate Blood Pressure 90/49 L 108/62 180/88 H Pulse Oximetry Oxygen Delivery Oxygen Flow Rate Fraction of Inspired Oxygen 05/03/24 16:57 05/03/24 17:02 05/03/24 17:07 Temperature Pulse Rate 108 H 105 H 107 H Respiratory Rate Blood Pressure 159/76 H 137/63 125/60 Pulse Oximetry Oxygen Delivery Oxygen Flow Rate Fraction of Inspired Oxygen 05/03/24 18:00 05/03/24 18:00 05/03/24 20:00 Temperature Pulse Rate 91 91 92 Respiratory Rate Blood Pressure 96/46 L 100/54 L Pulse Oximetry Oxygen Delivery Oxygen Flow Rate Fraction of Inspired Oxygen 05/03/24 20:00 05/03/24 20:00 05/03/24 20:00 Temperature 98.6 F Pulse Rate 94 98 98 Respiratory Rate 13 13 Blood Pressure 100/54 L 100/54 L Pulse Oximetry 97 97 Oxygen Delivery Nasal Cannula Oxygen Flow Rate 2 Fraction of Inspired Oxygen 05/03/24 20:00 05/03/24 20:34 05/03/24 20:45 Temperature Pulse Rate 101 H 98 99 Respiratory Rate Blood Pressure 92/49 L 103/54 L Pulse Oximetry Oxygen Delivery Oxygen Flow Rate Fraction of Inspired Oxygen 05/03/24 22:00 05/03/24 22:00 05/03/24 22:00 Temperature 98.7 F Pulse Rate 101 H 116 H 101 H Respiratory Rate 14 Blood Pressure 102/73 87/54 L Pulse Oximetry 96 Oxygen Delivery Oxygen Flow Rate Fraction of Inspired Oxygen 05/03/24 23:00 05/04/24 00:00 05/04/24 00:00 Temperature 98.4 F Pulse Rate 103 H 103 H 103 H Respiratory Rate 14 Blood Pressure 104/51 L 113/57 L 113/74 Pulse Oximetry 97 Oxygen Delivery Oxygen Flow Rate Fraction of Inspired Oxygen 05/04/24 00:00 05/04/24 00:00 05/04/24 00:00 Temperature Pulse Rate 101 H 98 103 H Respiratory Rate 13 Blood Pressure 113/57 L Pulse Oximetry 97 Oxygen Delivery Nasal Cannula Oxygen Flow Rate 2 Fraction of Inspired Oxygen 05/04/24 02:00 05/04/24 02:00 05/04/24 02:00 Temperature 98.2 F Pulse Rate 105 H 105 H 102 H Respiratory Rate 13 Blood Pressure 113/56 L 116/57 L Pulse Oximetry 97 Oxygen Delivery Oxygen Flow Rate Fraction of Inspired Oxygen 05/04/24 03:00 05/04/24 03:15 05/04/24 03:30 Temperature Pulse Rate 104 H 105 H 103 H Respiratory Rate Blood Pressure 125/65 121/63 114/56 L Pulse Oximetry Oxygen Delivery Oxygen Flow Rate Fraction of Inspired Oxygen 05/04/24 04:00 05/04/24 04:00 05/04/24 04:00 Temperature 98.2 F Pulse Rate 101 H 120 H 120 H Respiratory Rate 12 Blood Pressure 110/54 L 116/57 L 110/57 L Pulse Oximetry 98 Oxygen Delivery Oxygen Flow Rate Fraction of Inspired Oxygen 05/04/24 04:00 05/04/24 04:00 05/04/24 05:15 Temperature Pulse Rate 98 97 101 H Respiratory Rate 13 Blood Pressure 123/61 Pulse Oximetry 97 Oxygen Delivery Nasal Cannula Oxygen Flow Rate 2 Fraction of Inspired Oxygen 05/04/24 05:30 05/04/24 06:00 05/04/24 06:00 Temperature 98.2 F Pulse Rate 99 95 93 Respiratory Rate 12 Blood Pressure 105/54 L 99/51 L 99/51 L Pulse Oximetry 98 Oxygen Delivery Oxygen Flow Rate Fraction of Inspired Oxygen 05/04/24 06:00 05/04/24 07:00 05/04/24 07:15 Temperature Pulse Rate 93 101 H 105 H Respiratory Rate Blood Pressure 121/63 127/63 Pulse Oximetry Oxygen Delivery Oxygen Flow Rate Fraction of Inspired Oxygen 05/04/24 08:00 05/04/24 08:00 05/04/24 08:21 Temperature 98.6 F Pulse Rate 95 95 Respiratory Rate 19 Blood Pressure 115/57 L 99/76 L Pulse Oximetry 96 96 Oxygen Delivery Nasal Cannula Oxygen Flow Rate 1 Fraction of Inspired Oxygen 24 05/04/24 09:34 Temperature Pulse Rate 90 Respiratory Rate Blood Pressure 95/63 L Pulse Oximetry Oxygen Delivery Oxygen Flow Rate Fraction of Inspired Oxygen Intake/Output Intake/Output: Intake & Output 05/01/24 05/02/24 05/03/24 05/04/24 23:59 23:59 23:59 23:59 Intake Total 5214.4 5322.0 863.1 Output Total 3645 2270 1010 Balance 1569.4 3052.0 -146.9 Meds/Results Medications: Active Medications Generic Name Dose Route Start Last Admin Trade Name Freq PRN Reason Stop Dose Admin Acetaminophen 650 mg 05/02/24 20:45 05/02/24 20:40 Acetaminophen Elixir 325 Mg/10.15 Ml Udc FEED TUBE 650 mg Q6H PRN Administration Mild Pain (1-3) or Fever Brimonidine Tartrate 1 drop 05/02/24 14:00 05/04/24 06:20 Brimonidine Tartrate 0.2% Op Soln 5 Ml Btl EACH EYE 1 drop Q8HR EVER Administration Brinzolamide 1 drop 05/02/24 14:00 05/04/24 06:19 Brinzolamide 1% Ophth Susp 10 Ml EACH EYE 1 drop Q8HR EVER Administration Heparin Sodium (Porcine) 5,000 units 05/02/24 14:00 05/04/24 06:20 Heparin Sodium 5,000 Units/Ml Vial SUB-Q 5,000 units Q8HR EVER Administration Hydrocortisone Sodium Succinate 100 mg 05/02/24 15:00 05/04/24 06:19 Hydrocortisone Sodium Succinate 100 Mg/2 Ml Vial IV PUSH 100 mg Q8HR EVER Administration Cefepime HCl 2 gm in 50 mls @ 100 mls/hr 05/03/24 03:00 05/04/24 06:18 Maxipime 2 Gm/Ns 50 Ml IVPB 100 mls/hr Q24H EVER Administration Metronidazole 500 mg in 100 mls @ 100 mls/hr 05/02/24 12:00 05/04/24 06:19 Flagyl 500 Mg/Iso Soln 100 Ml IVPB 100 mls/hr Q8H EVER Administration Norepinephrine Bitartrate 8 mg in 250 mls @ 0 mls/hr 05/02/24 10:40 05/04/24 09:34 Levophed 8 Mg/D5w 250 Ml IV CONT 0 mcg/min .Q0M EVER 0 mls/hr Titration Protocol Vasopressin 100 units/ 100 mls @ 0 mls/hr 05/02/24 11:55 05/03/24 08:00 Dextrose IV CONT 0 units/min .Q0M EVER 0 mls/hr Titration Protocol 0 UNITS/MIN Potassium Chloride 100 mls @ 25 mls/hr 05/04/24 07:11 05/04/24 09:26 Kcl 40 Meq/Water 100 Ml IVPB 05/04/24 11:10 25 mls/hr ONCE ONE Administration Latanoprost 1 drop 05/02/24 21:00 05/03/24 20:15 Latanoprost 0.005% Op Soln 2.5 Ml Btl RIGHT EYE 1 drop HS EVER Administration Morphine Sulfate 2 mg 05/03/24 14:22 Morphine Sulfate (*Crx) 2 Mg/Ml Inj IV PUSH Q2H PRN Breakthrough Pain Rated 4-6 or NPO Morphine Sulfate 4 mg 05/03/24 14:22 Morphine Sulfate (*Crx) 4 Mg/Ml Inj IV PUSH Q2H PRN Breakthrough Pain Rated 7-10 or NPO Naloxone HCl 0.1 mg 05/03/24 14:22 Naloxone Hcl 0.4 Mg/Ml Vial IV PUSH Q2M PRN Opiate Reversal Ondansetron HCl 4 mg 05/02/24 10:09 05/02/24 16:02 Ondansetron Inj 4 Mg/2 Ml Vial IV PUSH 4 mg Q6H PRN Administration Nausea And Vomiting Pantoprazole Sodium 40 mg 05/03/24 09:00 05/04/24 09:26 Pantoprazole Sodium Iv 40 Mg Vial IV PUSH 40 mg QAM EVER Administration Perflutren Lipid Microsphere 0 ml 05/03/24 07:19 Perflutren Lipid Microspheres 1.5 Ml Vial Diluted To 10 Ml Total Volume IV PUSH 05/06/24 07:19 ONCE PRN adequate visualization Protocol Sodium Chloride 10 ml 05/03/24 06:00 05/04/24 06:19 Central Line Flush IV PUSH 10 ml Q8HR EVER Administration Sodium Chloride 20 ml 05/03/24 05:52 Central Line Flush IV PUSH PRN PRN after blood draws Vancomycin HCl 1 each 05/02/24 15:13 Vancomycin For Acute Kidney Injury IVPB PRN PRN Vancomycin Protocol Radiology Results: ITS Impressions Abdomen X-Ray 05/02/24 06:01 Impression: NG tube in satisfactory position. Suspected small bowel obstruction. Renal Ultrasound 05/02/24 15:30 IMPRESSION: 1. Chronic severe left hydronephrosis. Severe left kidney atrophy. 2. Nonobstructing right kidney stone. Abdomen/Pelvis CT 05/02/24 18:09 IMPRESSION: 1. Small bowel obstruction secondary to a left inguinal hernia containing small bowel. 2. Small volume of ascites. 3. Moderate-sized sliding hiatal hernia. 4. Left kidney stones including a stone in the renal pelvis with chronic severe hydronephrosis and severe kidney atrophy. 5. Nonobstructing right kidney stones. Chest X-Ray 05/04/24 06:11 IMPRESSION: 1. Stable airspace opacities in the lower lung zones, consistent with atelectasis versus pneumonia. 2. Cardiomegaly. Labs Labs: Laboratory Results - last 24 hr 05/03/24 05/03/24 05/04/24 11:47 16:47 04:48 WBC 3.6 L 7.9 RBC 3.72 L 3.79 L Hgb 10.6 L 10.4 L Hct 31.8 L 32.4 L MCV 85.5 85.5 MCH 28.5 27.4 MCHC 33.3 32.1 RDW 15.2 H 15.3 H Plt Count 109 L 108 L MPV 9.6 10.4 Immature Gran % (Auto) 3.9 H Neut % (Auto) 85.0 H Lymph % (Auto) 4.8 L [place] % (Auto) 6.3 Eos % (Auto) 0.0 Baso % (Auto) 0.0 L Lymph # (Auto) 0.38 L [place] # (Auto) 0.5 Eos # (Auto) 0.0 Baso # (Auto) 0.0 Abs Immat Gran (auto) 0.31 H Absolute Neuts (auto) 6.7 Absolute Nucleated RBC 0.000 Nucleated RBC % 0.0 Platelet Estimate Slightly decreased Poikilocytosis 1+ Anisocytosis 1+ Schistocytes None seen PT 22.8 H 19.6 H INR 1.9 1.6 APTT 39.8 H Puncture Site Artline ABG pH 7.313 L ABG pCO2 36.7 ABG pO2 221.9 H ABG PO2/FiO2 Ratio Not Reportable ABG HCO3 18.2 L ABG O2 Saturation 99.4 ABG O2 Content 16.7 ABG Base Excess -7.3 A-a Gradient Not Reportable Oxyhemoglobin 98.3 Total Hemoglobin 11.7 L O2 Delivery Device Other device O2 Liters/Min 0.0 FiO2 98 Sodium 140 143 Potassium 3.5 3.3 L Chloride 110 H 109 H Carbon Dioxide 20 L 26 Anion Gap 10 8 BUN 68 H 69 H Creatinine 3.20 H 3.10 H Estim Creat Clear Calc 17 18 Estimated GFR 19 L 19 L Glucose 116 H 134 H Lactic Acid 2.3 H 1.5 Calcium 7.9 L 8.0 L Phosphorus 5.0 H 4.3 Magnesium 2.1 2.2 Total Bilirubin 0.9 0.8 AST 39 34 ALT 24 24 Alkaline Phosphatase 35 L 44 Total Creatine Kinase 102 C-Reactive Protein 35.1 H Total Protein 6.0 L 6.0 L Albumin 3.3 L 3.5 Lipase 18 L
--- NOTE | 2024-05-04 11:11 | WPDINTPN ---
Progress Note: A&P Assessment and Plan (1) Shock: Code(s): R57.9 - Shock, unspecified Status: Acute Assessment and Plan: 05/02: Patient presented with nausea, vomiting, abdominal pain, abdominal distension. CT scan of the abdomen and pelvis showed small-bowel obstruction with incarcerated hernia -NG tube inserted with immediate drainage of 1500 mL in the ER in and approximately 500 mL gastric drainage in the ICU -patient was given 3 L IV fluids in the ER -left subclavian line was inserted in the ER on 05/02 -continue Levophed to maintain MAP > 65 mmHg at all times for adequate end organ perfusion -off vasopressin -continue cefepime, vancomycin and Flagyl (05/02) 05/02: Preliminary Blood cultures are negative so far -discontinue sodium bicarb 05/02: Repeat CT abdomen and pelvis 1. Small bowel obstruction secondary to a left inguinal hernia containing small bowel. 2. Small volume of ascites. 3. Moderate-sized sliding hiatal hernia. 4. Left kidney stones including a stone in the renal pelvis with chronic severe hydronephrosis and severe kidney atrophy. 5. Nonobstructing right kidney stones. 05/02: CT abdomen pelvis on admission: Small bowel obstruction, with transition point related to left inguinal hernia which contains a loop of small bowel as well as ascitic fluid. 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 Additional bilateral nonobstructing renal stones, as detailed above. Small amount of ascites. (2) Incarcerated left inguinal hernia: Code(s): K40.30 - Unilateral inguinal hernia, with obstruction, without gangrene, not specified as recurrent Status: Acute Assessment and Plan: Incarcerated left inguinal hernia on CT scan of the abdomen and pelvis -appreciate surgery evaluation and recommendation -continue NG tube to drainage, bowel rest, antibiotics -left inguinal hernia was reduced with manual pressure by the surgeon. -05/03: Status post open incarcerated left inguinal hernia repair with mesh -continue to monitor left inguinal drain output -discussed with surgery, mild delay in function a postop ileus could be expected, may start TPN of bowel function does not improve in 1-2 days. (3) SBO (small bowel obstruction): Code(s): K56.609 - Unspecified intestinal obstruction, unspecified as to partial versus complete obstruction Status: Acute Assessment and Plan: As above -continue NG drainage,bowel rest, antibiotics (4) Acute on chronic renal failure: Code(s): N17.9 - Acute kidney failure, unspecified; N18.9 - Chronic kidney disease, unspecified Status: Acute Assessment and Plan: Patient with acute on chronic kidney disease. Presented the ED with a creatinine of 2.50 on 05/02 (baseline creatinine 1.20-1.60) - prior to admission pt was on Amlodipine, atenolol for HTN, -etiology is likely related to septic shock, hypotension, ATN, contrast induced nephropathy, SBO/infection -patient received adequate amount of IV fluids, -weaning pressors -monitor urine output, electrolytes and renal function -CT of the abdomen showed severe chronic obstructive uropathy of the left kidney with hydronephrosis -urine lytes with possible prerenal but pt has received adequate IVF -will DC sodium bicarb infusion maintenance IV fluids -UA was normal, negative urine eosinophils, CK level normal -appreciate Nephrology evaluation and recommendations (5) Obstructive uropathy: Code(s): N13.9 - Obstructive and reflux uropathy, unspecified Status: Acute Assessment and Plan: CT scan of the abdomen and pelvis: Severe chronic obstructive uropathy of the left kidney, with enlargement of the left kidney, severe hydronephrosis and severe diffuse cortical thinning. Additional bilateral nonobstructing renal stones, -appreciate urology evaluation and recommendation, no intervention at this time as the marked hydronephrosis on the atrophy of the left kidney is chronic in nature. -Right kidney stones, follow-up with Urology after discharge to discuss further intervention (6) Atrial fibrillation: Code(s): I48.91 - Unspecified atrial fibrillation Status: Acute Assessment and Plan: New onset atrial fibrillation, currently rate controlled, likely related to septic shock, infection -will ask cardiology evaluate the patient -holding anticoagulation at this time status post inguinal hernia, will discuss with cardiology and surgery Plan DVT prophylaxis: Heparin subQ Stress ulcer prophylaxis: Protonix Nutrition: NPO Code Status: Full code Critical Care Time Spent: 33 minutes I updated the patient and his spouse with patient's condition and plan of care. I answered all the questions Due to a high probability of clinically significant, life threatening deterioration, the patient required my highest level of preparedness to intervene emergently and I personally spent this critical care time directly and personally managing the patient. This critical care time included obtaining a history; examining the patient; pulse oximetry; ordering and review of studies; arranging urgent treatment with development of a management plan; evaluation of patient's response to treatment; frequent reassessment; and discussions with other providers. It was exclusive of separately billable procedures and treating other patients and teaching time. Please see Assessment and Plan section and the rest of the note for further information on patient assessment and treatment This dictation may have been done utilizing a voice recognition system. Attempts have been made to correct errors. However, there may be uncorrected grammatical, spelling, and recognitions errors present. Subjective Date/time seen: 05/04/24 11:11 Interval history: Reason for consult: Incarcerated left inguinal hernia, small-bowel obstruction, acute on chronic renal failure 05/04/2024: Patient seen examined the ICU, is awake, alert, answers to questions appropriately and follows simple commands in all extremities. Patient remains on 1 L nasal cannula with adequate O2 sats. Denies any chest pain, shortness with, abdominal pain, nausea, vomiting. Urine output has been adequate, renal function is stable. Afebrile. Patient remains on Levophed at 2 mcg/min. On bicarb infusion Review of Systems Review of Systems: All systems reviewed & are unremarkable except as noted in HPI and below Exam Narrative: General: Pleasant gentleman in no acute distress HEENT:? Pupils equal and reactive, sclera is clear, dry oral mucosa, NG tube in place Neck:? Supple Respiratory:? Coarse breath sounds on left base, adequate air entry, no wheezing Cardiac:? S1-S2 normal, regular rate and rhythm Abdomen:? Soft, distended, tympanic to percussion, hypoactive bowel sounds, left inguinal hernia, no tenderness at this time, left inguinal hernia site with dressing in place and a Ministerio drain Extremities:? Trace edema, palpable pedal pulse Neuro:? Patient is awake, alert, oriented x3, nonfocal, answers to questions appropriately and follows simple commands in all extremities Skin:? Warm and dry Psych:? Normal mentation affect Objective Data Vital Signs Vital Signs: Vital Signs - 24 hr 05/03/24 13:00 05/03/24 13:00 05/03/24 13:00 Temperature 98.0 F Pulse Rate 100 97 Respiratory Rate 17 Blood Pressure 103/57 L 102/62 Pulse Oximetry 92 91 Oxygen Delivery Nasal Cannula Oxygen Flow Rate 4 Fraction of Inspired Oxygen 05/03/24 13:00 05/03/24 13:15 05/03/24 13:54 Temperature Pulse Rate 93 92 100 Respiratory Rate Blood Pressure 109/63 110/63 Pulse Oximetry Oxygen Delivery Oxygen Flow Rate Fraction of Inspired Oxygen 05/03/24 14:00 05/03/24 14:00 05/03/24 14:00 Temperature 98.1 F 98.1 F Pulse Rate 90 90 96 Respiratory Rate 18 20 Blood Pressure 104/62 Pulse Oximetry 91 Oxygen Delivery Oxygen Flow Rate Fraction of Inspired Oxygen 05/03/24 14:14 05/03/24 14:15 05/03/24 14:27 Temperature 98.2 F Pulse Rate 94 95 92 Respiratory Rate 17 Blood Pressure 97/55 L 85/60 L Pulse Oximetry Oxygen Delivery Oxygen Flow Rate Fraction of Inspired Oxygen 05/03/24 14:32 05/03/24 14:37 05/03/24 14:40 Temperature 98.3 F Pulse Rate 99 89 85 Respiratory Rate 17 Blood Pressure 82/48 L 82/49 L 83/49 L Pulse Oximetry 91 Oxygen Delivery Oxygen Flow Rate Fraction of Inspired Oxygen 05/03/24 14:45 05/03/24 14:55 05/03/24 15:07 Temperature 98.3 F Pulse Rate 90 86 88 Respiratory Rate 17 Blood Pressure 86/51 L 84/48 L 86/51 L Pulse Oximetry 90 Oxygen Delivery Oxygen Flow Rate Fraction of Inspired Oxygen 05/03/24 15:14 05/03/24 15:20 05/03/24 15:26 Temperature Pulse Rate 93 93 89 Respiratory Rate Blood Pressure 88/50 L 89/51 L 89/52 L Pulse Oximetry Oxygen Delivery Oxygen Flow Rate Fraction of Inspired Oxygen 05/03/24 15:32 05/03/24 15:38 05/03/24 16:00 Temperature Pulse Rate 87 83 84 Respiratory Rate Blood Pressure 87/50 L 89/51 L 92/54 L Pulse Oximetry Oxygen Delivery Oxygen Flow Rate Fraction of Inspired Oxygen 05/03/24 16:00 05/03/24 16:00 05/03/24 16:07 Temperature 98.5 F Pulse Rate 92 96 Respiratory Rate 23 H Blood Pressure 93/52 L Pulse Oximetry 90 90 Oxygen Delivery Nasal Cannula Oxygen Flow Rate 4 Fraction of Inspired Oxygen 05/03/24 16:21 05/03/24 16:26 05/03/24 16:32 Temperature Pulse Rate 81 90 85 Respiratory Rate Blood Pressure 85/48 L 90/50 L 84/49 L Pulse Oximetry Oxygen Delivery Oxygen Flow Rate Fraction of Inspired Oxygen 05/03/24 16:37 05/03/24 16:42 05/03/24 16:47 Temperature Pulse Rate 86 91 96 Respiratory Rate Blood Pressure 75/41 L 90/49 L 108/62 Pulse Oximetry Oxygen Delivery Oxygen Flow Rate Fraction of Inspired Oxygen 05/03/24 16:52 05/03/24 16:57 05/03/24 17:02 Temperature Pulse Rate 99 108 H 105 H Respiratory Rate Blood Pressure 180/88 H 159/76 H 137/63 Pulse Oximetry Oxygen Delivery Oxygen Flow Rate Fraction of Inspired Oxygen 05/03/24 17:07 05/03/24 18:00 05/03/24 18:00 Temperature Pulse Rate 107 H 91 91 Respiratory Rate Blood Pressure 125/60 96/46 L Pulse Oximetry Oxygen Delivery Oxygen Flow Rate Fraction of Inspired Oxygen 05/03/24 20:00 05/03/24 20:00 05/03/24 20:00 Temperature 98.6 F Pulse Rate 92 94 98 Respiratory Rate 13 Blood Pressure 100/54 L 100/54 L 100/54 L Pulse Oximetry 97 Oxygen Delivery Oxygen Flow Rate Fraction of Inspired Oxygen 05/03/24 20:00 05/03/24 20:00 05/03/24 20:34 Temperature Pulse Rate 98 101 H 98 Respiratory Rate 13 Blood Pressure 92/49 L Pulse Oximetry 97 Oxygen Delivery Nasal Cannula Oxygen Flow Rate 2 Fraction of Inspired Oxygen 05/03/24 20:45 05/03/24 22:00 05/03/24 22:00 Temperature 98.7 F Pulse Rate 99 101 H 116 H Respiratory Rate 14 Blood Pressure 103/54 L 102/73 Pulse Oximetry 96 Oxygen Delivery Oxygen Flow Rate Fraction of Inspired Oxygen 05/03/24 22:00 05/03/24 23:00 05/04/24 00:00 Temperature Pulse Rate 101 H 103 H 103 H Respiratory Rate Blood Pressure 87/54 L 104/51 L 113/57 L Pulse Oximetry Oxygen Delivery Oxygen Flow Rate Fraction of Inspired Oxygen 05/04/24 00:00 05/04/24 00:00 05/04/24 00:00 Temperature 98.4 F Pulse Rate 103 H 101 H 98 Respiratory Rate 14 13 Blood Pressure 113/74 Pulse Oximetry 97 97 Oxygen Delivery Nasal Cannula Oxygen Flow Rate 2 Fraction of Inspired Oxygen 05/04/24 00:00 05/04/24 02:00 05/04/24 02:00 Temperature 98.2 F Pulse Rate 103 H 105 H 105 H Respiratory Rate 13 Blood Pressure 113/57 L 113/56 L Pulse Oximetry 97 Oxygen Delivery Oxygen Flow Rate Fraction of Inspired Oxygen 05/04/24 02:00 05/04/24 03:00 05/04/24 03:15 Temperature Pulse Rate 102 H 104 H 105 H Respiratory Rate Blood Pressure 116/57 L 125/65 121/63 Pulse Oximetry Oxygen Delivery Oxygen Flow Rate Fraction of Inspired Oxygen 05/04/24 03:30 05/04/24 04:00 05/04/24 04:00 Temperature 98.2 F Pulse Rate 103 H 101 H 120 H Respiratory Rate 12 Blood Pressure 114/56 L 110/54 L 116/57 L Pulse Oximetry 98 Oxygen Delivery Oxygen Flow Rate Fraction of Inspired Oxygen 05/04/24 04:00 05/04/24 04:00 05/04/24 04:00 Temperature Pulse Rate 120 H 98 97 Respiratory Rate 13 Blood Pressure 110/57 L Pulse Oximetry 97 Oxygen Delivery Nasal Cannula Oxygen Flow Rate 2 Fraction of Inspired Oxygen 05/04/24 05:15 05/04/24 05:30 05/04/24 06:00 Temperature Pulse Rate 101 H 99 95 Respiratory Rate Blood Pressure 123/61 105/54 L 99/51 L Pulse Oximetry Oxygen Delivery Oxygen Flow Rate Fraction of Inspired Oxygen 05/04/24 06:00 05/04/24 06:00 05/04/24 07:00 Temperature 98.2 F Pulse Rate 93 93 101 H Respiratory Rate 12 Blood Pressure 99/51 L 121/63 Pulse Oximetry 98 Oxygen Delivery Oxygen Flow Rate Fraction of Inspired Oxygen 05/04/24 07:15 05/04/24 08:00 05/04/24 08:00 Temperature 98.6 F Pulse Rate 105 H 95 95 Respiratory Rate 19 Blood Pressure 127/63 115/57 L 99/76 L Pulse Oximetry 96 Oxygen Delivery Oxygen Flow Rate Fraction of Inspired Oxygen 05/04/24 08:21 05/04/24 09:34 Temperature Pulse Rate 90 Respiratory Rate Blood Pressure 95/63 L Pulse Oximetry 96 Oxygen Delivery Nasal Cannula Oxygen Flow Rate 1 Fraction of Inspired Oxygen 24 Intake/Output Intake/Output: Intake & Output 05/01/24 05/02/24 05/03/24 05/04/24 23:59 23:59 23:59 23:59 Intake Total 5214.4 5322.0 863.1 Output Total 3645 2270 1010 Balance 1569.4 3052.0 -146.9 Meds/Results Medications: Active Medications Generic Name Dose Route Start Last Admin Trade Name Freq PRN Reason Stop Dose Admin Acetaminophen 650 mg 05/02/24 20:45 05/02/24 20:40 Acetaminophen Elixir 325 Mg/10.15 Ml Udc FEED TUBE 650 mg Q6H PRN Administration Mild Pain (1-3) or Fever Brimonidine Tartrate 1 drop 05/02/24 14:00 05/04/24 06:20 Brimonidine Tartrate 0.2% Op Soln 5 Ml Btl EACH EYE 1 drop Q8HR EVER Administration Brinzolamide 1 drop 05/02/24 14:00 05/04/24 06:19 Brinzolamide 1% Ophth Susp 10 Ml EACH EYE 1 drop Q8HR EVER Administration Heparin Sodium (Porcine) 5,000 units 05/02/24 14:00 05/04/24 06:20 Heparin Sodium 5,000 Units/Ml Vial SUB-Q 5,000 units Q8HR EVER Administration Hydrocortisone Sodium Succinate 50 mg 05/04/24 18:00 Hydrocortisone Sodium Succinate 100 Mg/2 Ml Vial IV PUSH 05/05/24 23:59 Q8HR EVER Cefepime HCl 2 gm in 50 mls @ 100 mls/hr 05/03/24 03:00 05/04/24 06:18 Maxipime 2 Gm/Ns 50 Ml IVPB 100 mls/hr Q24H EVER Administration Metronidazole 500 mg in 100 mls @ 100 mls/hr 05/02/24 12:00 05/04/24 06:19 Flagyl 500 Mg/Iso Soln 100 Ml IVPB 100 mls/hr Q8H EVER Administration Norepinephrine Bitartrate 8 mg in 250 mls @ 0 mls/hr 05/02/24 10:40 05/04/24 09:34 Levophed 8 Mg/D5w 250 Ml IV CONT 0 mcg/min .Q0M EVER 0 mls/hr Titration Protocol Vasopressin 100 units/ 100 mls @ 0 mls/hr 05/02/24 11:55 05/03/24 08:00 Dextrose IV CONT 0 units/min .Q0M EVER 0 mls/hr Titration Protocol 0 UNITS/MIN Latanoprost 1 drop 05/02/24 21:00 05/03/24 20:15 Latanoprost 0.005% Op Soln 2.5 Ml Btl RIGHT EYE 1 drop HS EVER Administration Morphine Sulfate 2 mg 05/03/24 14:22 Morphine Sulfate (*Crx) 2 Mg/Ml Inj IV PUSH Q2H PRN Breakthrough Pain Rated 4-6 or NPO Morphine Sulfate 4 mg 05/03/24 14:22 Morphine Sulfate (*Crx) 4 Mg/Ml Inj IV PUSH Q2H PRN Breakthrough Pain Rated 7-10 or NPO Naloxone HCl 0.1 mg 05/03/24 14:22 Naloxone Hcl 0.4 Mg/Ml Vial IV PUSH Q2M PRN Opiate Reversal Ondansetron HCl 4 mg 05/02/24 10:09 05/02/24 16:02 Ondansetron Inj 4 Mg/2 Ml Vial IV PUSH 4 mg Q6H PRN Administration Nausea And Vomiting Pantoprazole Sodium 40 mg 05/03/24 09:00 05/04/24 09:26 Pantoprazole Sodium Iv 40 Mg Vial IV PUSH 40 mg QAM EVER Administration Perflutren Lipid Microsphere 0 ml 05/03/24 07:19 Perflutren Lipid Microspheres 1.5 Ml Vial Diluted To 10 Ml Total Volume IV PUSH 05/06/24 07:19 ONCE PRN adequate visualization Protocol Sodium Chloride 10 ml 05/03/24 06:00 05/04/24 06:19 Central Line Flush IV PUSH 10 ml Q8HR EVER Administration Sodium Chloride 20 ml 05/03/24 05:52 Central Line Flush IV PUSH PRN PRN after blood draws Vancomycin HCl 1 each 05/02/24 15:13 Vancomycin For Acute Kidney Injury IVPB PRN PRN Vancomycin Protocol Radiology Results: ITS Impressions Abdomen X-Ray 05/02/24 06:01 Impression: NG tube in satisfactory position. Suspected small bowel obstruction. Renal Ultrasound 05/02/24 15:30 IMPRESSION: 1. Chronic severe left hydronephrosis. Severe left kidney atrophy. 2. Nonobstructing right kidney stone. Abdomen/Pelvis CT 05/02/24 18:09 IMPRESSION: 1. Small bowel obstruction secondary to a left inguinal hernia containing small bowel. 2. Small volume of ascites. 3. Moderate-sized sliding hiatal hernia. 4. Left kidney stones including a stone in the renal pelvis with chronic severe hydronephrosis and severe kidney atrophy. 5. Nonobstructing right kidney stones. Chest X-Ray 05/04/24 06:11 IMPRESSION: 1. Stable airspace opacities in the lower lung zones, consistent with atelectasis versus pneumonia. 2. Cardiomegaly. Labs Labs: Laboratory Results - last 24 hr 05/03/24 05/03/24 05/04/24 11:47 16:47 04:48 WBC 3.6 L 7.9 RBC 3.72 L 3.79 L Hgb 10.6 L 10.4 L Hct 31.8 L 32.4 L MCV 85.5 85.5 MCH 28.5 27.4 MCHC 33.3 32.1 RDW 15.2 H 15.3 H Plt Count 109 L 108 L MPV 9.6 10.4 Immature Gran % (Auto) 3.9 H Neut % (Auto) 85.0 H Lymph % (Auto) 4.8 L [place] % (Auto) 6.3 Eos % (Auto) 0.0 Baso % (Auto) 0.0 L Lymph # (Auto) 0.38 L [place] # (Auto) 0.5 Eos # (Auto) 0.0 Baso # (Auto) 0.0 Abs Immat Gran (auto) 0.31 H Absolute Neuts (auto) 6.7 Absolute Nucleated RBC 0.000 Nucleated RBC % 0.0 Platelet Estimate Slightly decreased Poikilocytosis 1+ Anisocytosis 1+ Schistocytes None seen PT 22.8 H 19.6 H INR 1.9 1.6 APTT 39.8 H Puncture Site Artline ABG pH 7.313 L ABG pCO2 36.7 ABG pO2 221.9 H ABG PO2/FiO2 Ratio Not Reportable ABG HCO3 18.2 L ABG O2 Saturation 99.4 ABG O2 Content 16.7 ABG Base Excess -7.3 A-a Gradient Not Reportable Oxyhemoglobin 98.3 Total Hemoglobin 11.7 L O2 Delivery Device Other device O2 Liters/Min 0.0 FiO2 98 Sodium 140 143 Potassium 3.5 3.3 L Chloride 110 H 109 H Carbon Dioxide 20 L 26 Anion Gap 10 8 BUN 68 H 69 H Creatinine 3.20 H 3.10 H Estim Creat Clear Calc 17 18 Estimated GFR 19 L 19 L Glucose 116 H 134 H Lactic Acid 2.3 H 1.5 Calcium 7.9 L 8.0 L Phosphorus 5.0 H 4.3 Magnesium 2.1 2.2 Total Bilirubin 0.9 0.8 AST 39 34 ALT 24 24 Alkaline Phosphatase 35 L 44 Total Creatine Kinase 102 C-Reactive Protein 35.1 H Total Protein 6.0 L 6.0 L Albumin 3.3 L 3.5 Lipase 18 L
--- NOTE | 2024-05-04 13:33 | WPDANESPN ---
Anes - Prog Note Post-Op Date/Time: 05/04/24 13:33 Cardiovascular status: other (afib, off levophed gtt) Respiratory status: other (baseline) Airway patency: baseline Mental status: baseline Post-Op hydration status: other (NG tube still in place, patient receiving IV hydration) Vital Signs: Last Vital Signs Temp 37.4 C 05/04/24 12:00 Pulse 99 05/04/24 12:00 Resp 16 05/04/24 12:00 BP 107/61 05/04/24 12:00 Pulse Ox 92 05/04/24 12:00 O2 Del Method Nasal Cannula 05/04/24 08:21 O2 Flow Rate 1 05/04/24 08:21 FiO2 24 05/04/24 08:21 Pain Score (VAS): 0/10 I/O: Intake & Output 05/03/24 05/04/24 05/04/24 23:59 07:59 15:59 Intake Total 2057.5 957.4 5.7 Output Total 1095 1010 Balance 962.5 -52.6 5.7 Laboratory Tests 05/04/24 04:48 05/04/24 04:48 05/03/24 05/04/24 16:47 04:48 WBC 3.6 L 7.9 RBC 3.72 L 3.79 L Hgb 10.6 L 10.4 L Hct 31.8 L 32.4 L MCV 85.5 85.5 MCH 28.5 27.4 MCHC 33.3 32.1 RDW 15.2 H 15.3 H Plt Count 109 L 108 L MPV 9.6 10.4 Immature Gran % (Auto) 3.9 H Neut % (Auto) 85.0 H Lymph % (Auto) 4.8 L [place] % (Auto) 6.3 Eos % (Auto) 0.0 Baso % (Auto) 0.0 L Lymph # (Auto) 0.38 L [place] # (Auto) 0.5 Eos # (Auto) 0.0 Baso # (Auto) 0.0 Abs Immat Gran (auto) 0.31 H Absolute Neuts (auto) 6.7 Absolute Nucleated RBC 0.000 Nucleated RBC % 0.0 Platelet Estimate Slightly decreased Poikilocytosis 1+ Anisocytosis 1+ Schistocytes None seen PT 22.8 H 19.6 H INR 1.9 1.6 APTT 39.8 H Sodium 140 143 Potassium 3.5 3.3 L Chloride 110 H 109 H Carbon Dioxide 20 L 26 Anion Gap 10 8 BUN 68 H 69 H Creatinine 3.20 H 3.10 H Estim Creat Clear Calc 17 18 Estimated GFR 19 L 19 L Glucose 116 H 134 H Lactic Acid 2.3 H 1.5 Calcium 7.9 L 8.0 L Phosphorus 5.0 H 4.3 Magnesium 2.1 2.2 Total Bilirubin 0.9 0.8 AST 39 34 ALT 24 24 Alkaline Phosphatase 35 L 44 Total Creatine Kinase 102 C-Reactive Protein 35.1 H Total Protein 6.0 L 6.0 L Albumin 3.3 L 3.5 Lipase 18 L Post-procedural complaints: none Patient Feedback: Patient satisfied with anesthetic care.
--- NOTE | 2024-05-04 14:03 | PM.CNCAR ---
Assessment and Plan Assessment and plan (1) New onset a-fib: Code(s): I48.91 - Unspecified atrial fibrillation Status: Acute (2) Hypotension: Code(s): I95.9 - Hypotension, unspecified Status: Acute (3) Atherosclerotic heart disease of [place] coronary artery without angina pectoris: Code(s): I25.10 - Atherosclerotic heart disease of [place] coronary artery without angina pectoris Status: Acute (4) Hypokalemia: Code(s): E87.6 - Hypokalemia Status: Acute Assessment and Plan: Assessment: 1. New onset nonvalvular atrial fibrillation with heart rate at rest in the 90s-100s in the setting of shock secondary to small-bowel obstruction; LVEF 50-55% 2. Hypotension with SBP 80s to 90s requiring Levophed and vasopressin 3. 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 Thrombocytopenia with platelets [id number] 5. Hypokalemia with potassium 3.3 6. Anemia with hemoglobin 10.4 7. Hyperlipidemia 8. DANISHA on CKD (baseline creatinine 1.2 to 1.6)-current creatinine 3.1; secondary to shock, hypotension 9. Shock secondary to small-bowel obstruction- SCAI shock stage C 10. Small bowel obstruction with incarcerated left inguinal hernia status post open incarcerated left inguinal hernia repair with mesh; cultures negative; on broad-spectrum antibiotics; 11. Renal stones- Left kidney stones with a stone in the renal pelvis with chronic severe hydronephrosis and severe kidney atrophy; nonobstructive stones in the right kidney Plan 1. Patient is very sick secondary to shock from small-bowel obstruction and incarcerated left inguinal hernia status post open repair and requiring Levophed. Systolic blood pressure is in the 80s to 90s range on Levophed. Given hypotension requiring pressor support, unable to use any AV katherine blockers for AFib rate control. Right now his rates are in the 90s to 110s range at rest and patient reports some shortness of breath but no other significant symptoms. Digoxin is not an option given DANISHA on CKD with creatinine of 3. Unable to use amiodarone as it has the potential to chemically cardiovert and this carries risk of stroke in patient not on anticoagulation. Hence monitor on telemetry without further medication at this time 2. He has a Chads Vasc score 2 (age greater than 75). Thus anticoagulation is recommended to reduce risk of stroke. However given recent surgery, we may not be able to start therapeutic anticoagulation until okay per surgery team. 3. Start anticoagulation with heparin when okay from surgical standpoint 4. Check TSH and free T4 5. Trend troponin to peak 6. Check and replace electrolytes as needed keeping potassium greater than 4 and magnesium greater than 2 7. Check renal function daily. Monitor hemoglobin and platelet counts daily 8. Management of other medical and surgical problems per primary and surgical teams respectively 9. Discussed above plan with patient and he is agreeable Thank you for this interesting consult. Cardiology will continue to follow History of Present Illness History of Present Illness Consult date/time: 05/04/24 14:03 Reason For Visit: SBO Narrative: 83-year-old male with history of hyperlipidemia, CKD, kidney stones, granulomatous lung disease, rheumatoid arthritis, nephrolithiasis, benign prostatic hyperplasia, and psoriasis was admitted for small bowl obstruction secondary to incarcerated left inguinal hernia and underwent open repair with mesh. He is in shock secondary to aforementioned problem requiring pressor support with Levophed. This morning he was noted to have new onset AFib with RVR. Cardiology was consulted for further management. Patient states that he has chronic shortness of breath on inhalers which is worse now. No chest pain, dizziness, lightheadedness, diaphoresis, palpitations, leg swelling, recent weight gain, presyncope, or syncope. He has an NG tube in place after abdominal surgery. No nausea, emesis, abdominal pain, headache, or any weakness. He denies any prior history of atrial fibrillation. He states that he was worked up with a cardiac catheterization in the past for symptoms of shortness of breath but did not have any significant blockages needing stents. Telemetry shows atrial fibrillation with rates ranging between 90s to 110s while he is at rest. Work-up: Troponin: Not checked TSH, free T4: Not checked Hemoglobin 10.4, platelets 108 1000, INR 1.6, potassium 3.3, creatinine 3.10 (baseline 1.5) EKG: AFib with RVR rate 114, nonspecific ST T wave changes TTE: LVEF 50-55%, suspected PFO by color-flow Doppler, no significant valvular pathology Cath: 08/2023 showed nonobstructive CAD and isolated post capillary pulmonary hypertension Review of Systems Review of Systems: A complete review of systems was performed and negative other than those mentioned in HPI 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 The patient has no children. He used to use chewing tobacco but has not used since 2014. No alcohol or drug use Code status - Full Surrogate decision maker - Smoking status: Never smoker Smokeless tobacco user: chewing tobacco Second hand tobacco smoke exposure: No Smoking end date: 07/23/14 Additional smoking assessment comments: STATES CHEWED FROM AGE 15 UNTIL QUITTING IN 2014 Alcohol intake: never Substance use: never Substance use type: does not use Do You Feel Safe in your Home?: Yes Lack of Transportation: No Lack of Food: Never True Current Housing: I Have Housing Concerned About Future Housing: No Difficulty Paying Gas/Electric Bills: No Difficulty Paying for Meds: No Currently Unemployed: No Education: Trade/Vocational Certificate Difficulty w/ Childcare or Family Care: No Living arrangements: with family Gender identity (if verbalized by the patient): Male Spiritual care concerns: No Meds Home Medications and Allergies Home Medications ?Medication ?Instructions ?Recorded ?Confirmed ?Type ascorbic acid (vitamin C) 1,000 mg 1 g PO DAILY 07/27/20 05/02/24 History tablet (Vitamin C) aspirin 81 mg tablet,delayed 81 mg PO HS 07/27/20 05/02/24 History release (Remi Low Dose Aspirin) brinzolamide 1 %-brimonidine 0.2 % 1 drp EACH EYE TID 07/27/20 05/02/24 History eye drops,suspension (Simbrinza) latanoprost 0.005 % eye drops 1 drp RIGHT EYE HS 07/27/20 05/02/24 History vitamin E 400 unit tablet 450 mg PO DAILY 07/27/20 05/02/24 History amlodipine 10 mg tablet 5 mg PO DAILY 04/13/23 05/02/24 History magnesium 200 mg tablet 25 mg PO HS 04/13/23 05/02/24 History folic acid 800 mcg tablet 1 mg PO QAM 04/25/23 05/02/24 History cyanocobalamin (vitamin B-12) 500 1,000 mcg PO DAILY 06/26/23 05/02/24 History mcg tablet multivitamin with minerals-folic 1 tablet PO DAILY 06/26/23 05/02/24 History acid 0.4 mg tablet carboxymethylcellulose sodium 0.5 1 drp EACH EYE TID 07/12/23 05/02/24 History % eye drops in a dropperette coQ10 (ubiquinol) 100 mg capsule 200 mg PO HS 08/08/23 05/02/24 History (Qunol Silas CoQ10) ferrous sulfate 325 mg (65 mg 325 mg PO DAILY 08/08/23 05/02/24 History iron) tablet (Feosol) omeprazole 20 mg tablet,delayed 20 mg PO BID #180 tabs 10/04/23 05/02/24 Rx release diazepam 2 mg tablet 2 mg PO BID vertigo #60 tabs 12/14/23 05/02/24 Rx atenolol 50 mg tablet 50 mg PO QAM #90 tabs 01/01/24 05/02/24 Rx atorvastatin 40 mg tablet 40 mg PO QAM #90 tabs 01/07/24 05/02/24 Rx albuterol sulfate 90 mcg/actuation 2 puff inhalation .q6hr PRN 05/02/24 05/02/24 History aerosol inhaler wheezing apple cider vinegar 250 mg 250 mg PO HS 05/02/24 05/02/24 History chewable tablet budesonide 160 mcg-glycopyr 9 2 inh inhalation BID 05/02/24 05/02/24 History mcg-formot 4.8 mcg/actuation HFA inhaler (Breztri Aerosphere) fluticasone propionate 50 1 spray intranasal HS PRN nasal 05/02/24 05/02/24 History mcg/actuation nasal congestion spray,suspension (24 Hour Allergy Relief) meclizine 25 mg tablet 25 mg PO QID PRN dizziness 05/02/24 05/02/24 History tamsulosin 0.4 mg capsule 0.4 mg PO QHS 05/02/24 05/02/24 History vit C 250 mg-vit E 90 mg-zinc 10 1 cap PO QAM AND QHS 05/02/24 05/02/24 History mg-copper 1 [id number] capsule (Eye Health Vitamin-Mineral) Allergies Allergy/AdvReac Type Severity Reaction Status Date / Time Penicillins Allergy Severe Hives Verified 05/02/24 03:01 Vital Signs Vital Signs - 24 hr 05/03/24 14:14 05/03/24 14:15 05/03/24 14:27 Temperature 36.8 C Pulse Rate 94 95 92 Respiratory Rate 17 Blood Pressure 97/55 L 85/60 L Pulse Oximetry Oxygen Delivery Oxygen Flow Rate Fraction of Inspired Oxygen 05/03/24 14:32 05/03/24 14:37 05/03/24 14:40 Temperature 36.8 C Pulse Rate 99 89 85 Respiratory Rate 17 Blood Pressure 82/48 L 82/49 L 83/49 L Pulse Oximetry 91 Oxygen Delivery Oxygen Flow Rate Fraction of Inspired Oxygen 05/03/24 14:45 05/03/24 14:55 05/03/24 15:07 Temperature 36.8 C Pulse Rate 90 86 88 Respiratory Rate 17 Blood Pressure 86/51 L 84/48 L 86/51 L Pulse Oximetry 90 Oxygen Delivery Oxygen Flow Rate Fraction of Inspired Oxygen 05/03/24 15:14 05/03/24 15:20 05/03/24 15:26 Temperature Pulse Rate 93 93 89 Respiratory Rate Blood Pressure 88/50 L 89/51 L 89/52 L Pulse Oximetry Oxygen Delivery Oxygen Flow Rate Fraction of Inspired Oxygen 05/03/24 15:32 05/03/24 15:38 05/03/24 16:00 Temperature Pulse Rate 87 83 84 Respiratory Rate Blood Pressure 87/50 L 89/51 L 92/54 L Pulse Oximetry Oxygen Delivery Oxygen Flow Rate Fraction of Inspired Oxygen 05/03/24 16:00 05/03/24 16:00 05/03/24 16:07 Temperature 36.9 C Pulse Rate 92 96 Respiratory Rate 23 H Blood Pressure 93/52 L Pulse Oximetry 90 90 Oxygen Delivery Nasal Cannula Oxygen Flow Rate 4 Fraction of Inspired Oxygen 05/03/24 16:21 05/03/24 16:26 05/03/24 16:32 Temperature Pulse Rate 81 90 85 Respiratory Rate Blood Pressure 85/48 L 90/50 L 84/49 L Pulse Oximetry Oxygen Delivery Oxygen Flow Rate Fraction of Inspired Oxygen 05/03/24 16:37 05/03/24 16:42 05/03/24 16:47 Temperature Pulse Rate 86 91 96 Respiratory Rate Blood Pressure 75/41 L 90/49 L 108/62 Pulse Oximetry Oxygen Delivery Oxygen Flow Rate Fraction of Inspired Oxygen 05/03/24 16:52 05/03/24 16:57 05/03/24 17:02 Temperature Pulse Rate 99 108 H 105 H Respiratory Rate Blood Pressure 180/88 H 159/76 H 137/63 Pulse Oximetry Oxygen Delivery Oxygen Flow Rate Fraction of Inspired Oxygen 05/03/24 17:07 05/03/24 18:00 05/03/24 18:00 Temperature Pulse Rate 107 H 91 91 Respiratory Rate Blood Pressure 125/60 96/46 L Pulse Oximetry Oxygen Delivery Oxygen Flow Rate Fraction of Inspired Oxygen 05/03/24 20:00 05/03/24 20:00 05/03/24 20:00 Temperature 37.0 C Pulse Rate 92 94 98 Respiratory Rate 13 Blood Pressure 100/54 L 100/54 L 100/54 L Pulse Oximetry 97 Oxygen Delivery Oxygen Flow Rate Fraction of Inspired Oxygen 05/03/24 20:00 05/03/24 20:00 05/03/24 20:34 Temperature Pulse Rate 98 101 H 98 Respiratory Rate 13 Blood Pressure 92/49 L Pulse Oximetry 97 Oxygen Delivery Nasal Cannula Oxygen Flow Rate 2 Fraction of Inspired Oxygen 05/03/24 20:45 05/03/24 22:00 05/03/24 22:00 Temperature 37.1 C Pulse Rate 99 101 H 116 H Respiratory Rate 14 Blood Pressure 103/54 L 102/73 Pulse Oximetry 96 Oxygen Delivery Oxygen Flow Rate Fraction of Inspired Oxygen 05/03/24 22:00 05/03/24 23:00 05/04/24 00:00 Temperature Pulse Rate 101 H 103 H 103 H Respiratory Rate Blood Pressure 87/54 L 104/51 L 113/57 L Pulse Oximetry Oxygen Delivery Oxygen Flow Rate Fraction of Inspired Oxygen 12/22/24 00:00 05/04/24 00:00 05/04/24 00:00 Temperature 36.9 C Pulse Rate 103 H 101 H 98 Respiratory Rate 14 13 Blood Pressure 113/74 Pulse Oximetry 97 97 Oxygen Delivery Nasal Cannula Oxygen Flow Rate 2 Fraction of Inspired Oxygen 05/04/24 00:00 05/04/24 02:00 05/04/24 02:00 Temperature 36.8 C Pulse Rate 103 H 105 H 105 H Respiratory Rate 13 Blood Pressure 113/57 L 113/56 L Pulse Oximetry 97 Oxygen Delivery Oxygen Flow Rate Fraction of Inspired Oxygen 05/04/24 02:00 05/04/24 03:00 05/04/24 03:15 Temperature Pulse Rate 102 H 104 H 105 H Respiratory Rate Blood Pressure 116/57 L 125/65 121/63 Pulse Oximetry Oxygen Delivery Oxygen Flow Rate Fraction of Inspired Oxygen 05/04/24 03:30 05/04/24 04:00 05/04/24 04:00 Temperature 36.8 C Pulse Rate 103 H 101 H 120 H Respiratory Rate 12 Blood Pressure 114/56 L 110/54 L 116/57 L Pulse Oximetry 98 Oxygen Delivery Oxygen Flow Rate Fraction of Inspired Oxygen 05/04/24 04:00 05/04/24 04:00 05/04/24 04:00 Temperature Pulse Rate 120 H 98 97 Respiratory Rate 13 Blood Pressure 110/57 L Pulse Oximetry 97 Oxygen Delivery Nasal Cannula Oxygen Flow Rate 2 Fraction of Inspired Oxygen 05/04/24 05:15 05/04/24 05:30 05/04/24 06:00 Temperature Pulse Rate 101 H 99 95 Respiratory Rate Blood Pressure 123/61 105/54 L 99/51 L Pulse Oximetry Oxygen Delivery Oxygen Flow Rate Fraction of Inspired Oxygen 05/04/24 06:00 05/04/24 06:00 05/04/24 07:00 Temperature 36.8 C Pulse Rate 93 93 101 H Respiratory Rate 12 Blood Pressure 99/51 L 121/63 Pulse Oximetry 98 Oxygen Delivery Oxygen Flow Rate Fraction of Inspired Oxygen 05/04/24 07:15 05/04/24 08:00 05/04/24 08:00 Temperature 37.0 C Pulse Rate 105 H 95 95 Respiratory Rate 19 Blood Pressure 127/63 115/57 L 99/76 L Pulse Oximetry 96 Oxygen Delivery Oxygen Flow Rate Fraction of Inspired Oxygen 05/04/24 08:21 05/04/24 09:34 05/04/24 10:00 Temperature 37.4 C Pulse Rate 90 96 Respiratory Rate 19 Blood Pressure 95/63 L 104/57 L Pulse Oximetry 96 92 Oxygen Delivery Nasal Cannula Oxygen Flow Rate 1 Fraction of Inspired Oxygen 05/04/24 11:00 05/04/24 12:00 Temperature 37.4 C Pulse Rate 105 H 99 Respiratory Rate 16 Blood Pressure 111/63 107/61 Pulse Oximetry 92 Oxygen Delivery Oxygen Flow Rate Fraction of Inspired Oxygen Exam Narrative: General: Alert oriented x3, no acute distress Neck: Supple, JVD + Chest: Bilaterally clear to auscultation, no rales or rhonchi Cardiac: S1, S2 +, irregularly irregular, no murmurs or rubs Extremities: Bilateral lower extremity edema 1+, no skin rash Neurologic: Alert and oriented x3, no focal neurological deficits Results Labs and Meds 05/04/24 04:48 05/04/24 04:48 Lab results: Cardiac Enzymes 05/03/24 05/04/24 Range/Units 16:47 04:48 AST 39 34 (17-59) U/L Coagulation 05/03/24 05/04/24 Range/Units 16:47 04:48 PT 22.8 H 19.6 H (11.1-14.7) Seconds APTT 39.8 H (22.3-36.8) Seconds CBC 05/03/24 05/04/24 Range/Units 16:47 04:48 WBC 3.6 L 7.9 (4.5-10.0) K/mm3 RBC 3.72 L 3.79 L (4.6-6.20) M/mm3 Hgb 10.6 L 10.4 L (14.0-18.0) g/dL Hct 31.8 L 32.4 L (42.0-52.0) % Plt Count 109 L 108 L (150-375) k/mm3 Lymph # (Auto) 0.38 L (0.9-3.2) K/mm3 [place] # (Auto) 0.5 (0.1-0.6) K/mm3 Eos # (Auto) 0.0 (0-0.3) K/mm3 Baso # (Auto) 0.0 (0.0-0.1) K/mm3 Comprehensive Metabolic Panel 05/03/24 05/04/24 Range/Units 16:47 04:48 Sodium 140 143 (137-145) mmol/L Potassium 3.5 3.3 L (3.4-5.0) mmol/L Chloride 110 H 109 H (98-107) mmol/L Carbon Dioxide 20 L 26 (22-30) mmol/L BUN 68 H 69 H (9-20) mg/dL Creatinine 3.20 H 3.10 H (0.7-1.3) mg/dL Glucose 116 H 134 H (65-110) mg/dL Calcium 7.9 L 8.0 L (8.4-10.2) mg/dL AST 39 34 (17-59) U/L ALT 24 24 (6-50) U/L Alkaline Phosphatase 35 L 44 (38-126) U/L Total Protein 6.0 L 6.0 L (6.3-8.2) g/dL Albumin 3.3 L 3.5 (3.5-5.1) g/dL Intake and Output 05/03/24 05/04/24 05/04/24 23:59 07:59 15:59 Intake Total 2057.5 957.4 5.7 Output Total 1095 1010 Balance 962.5 -52.6 5.7 Intake: IV 2027.5 867.4 5.7 Albumin Human 5% 250 ml @ 62.5 250 mls/hr IV CONT .Q4H ONE Rx#: [id number] Norepinephrine 8 mg/D5w 250 ml 77.5 88.6 5.7 8 mg In 250 ml @ 7 MCG/MIN 13. 125 mls/hr IV CONT .Q19H3M [facility] Rx#:[id number] Sodium Bicarbonate 8.4% 150 meq 1100 678.8 In Dextrose 5% 1,000 ml 950 ml @ 75 mls/hr IV CONT .[id number] [facility] Rx#:[id number] Vancomycin 1,500 mg/Ns 500 ml 1 500 ,500 mg In 500 ml @ 250 mls/hr IVPB ONCE ONE Rx#:[id number] metroNIDAZOLE 500 MG/ISO 100ML 100 100 500 mg In 100 ml @ 100 mls/hr IVPB Q8H [facility] Rx#:[id number] Tube Flush 30 90 Output: Catheter Urine 600 600 Urethral Catheter 600 600 Gastric Drainage 250 300 Left Nare 250 300 Drain 245 110 Marilyn Left Lower Abdomen 245 110 Patient Weight 05/04/24 23:59 Weight 91.2 kg
--- NOTE | 2024-05-04 14:50 | P.PNIM_ITS ---
Progress Note: A&P Assessment and Plan (1) Shock: Code(s): R57.9 - Shock, unspecified Status: Acute Assessment and Plan: Patient with septic shock related to incarcerated hernia and SBO Patient was given 3 L fluid resuscitation in ED but remained HoTN. Central line placed and pressors started. Lactic 4.8 -> 1.45 IV abx started after BCx collected. Patient moved to ICU. Levophed started and DIETETIC ASSISTANT added. BCx NGTD. General surgery consulted and patient went for surgery 05/03 Able to wean of DIETETIC ASSISTANT and Levophed. Phenylephrine was never started Also started on Solu-Cortef but should try to wean this off quickly since could impede healing process. Appreciate screen tacker input (2) SBO (small bowel obstruction): Code(s): K56.609 - Unspecified intestinal obstruction, unspecified as to partial versus complete obstruction Status: Acute Assessment and Plan: Patient with SBO related to left inguinal hernia. NGT placed with 1500mL suctioned and now on LWIS. Hernia was reduced at bedside but with recurrence. Gen Surgery consulted and patient taken for surgery 05/03 POD #1 from open incarcerated left inguinal hernia repair with mesh. There was no signs of bowel ischemia. Continue routine post-op care. Continue NGT to suction. Consider starting TPN if no return of bowel fxn soon. (3) Atrial fibrillation: Code(s): I48.91 - Unspecified atrial fibrillation Status: Acute Assessment and Plan: Patient went into AFib this morning. Rate controlled. [id number] at least 3 (age and HTN) Echo showing EF 50-55%, abnormal diastolic fxn, possible PFO and mild valvular disease. Cardiology consulted. Holding full anticoagulation. Monitor on tele for now. (4) Incarcerated left inguinal hernia: Code(s): K40.30 - Unilateral inguinal hernia, with obstruction, without gangrene, not specified as recurrent Status: Acute Assessment and Plan: As above (5) Acute on chronic renal failure: Code(s): N17.9 - Acute kidney failure, unspecified; N18.9 - Chronic kidney disease, unspecified Status: Acute Assessment and Plan: Baseline Cr 1.5-1.7. Cr 2.5 on admission. DANISHA related to above. Fluid resuscitated. Cr worse at 3.1 but stable now. Monitor renal function, UOP, and electrolytes. (6) Obstructive uropathy: Code(s): N13.9 - Obstructive and reflux uropathy, unspecified Status: Acute Assessment and Plan: CT Abd/Pelvis 05/02 shows multiple nonobstructing right renal stones, markedly enlarged left kidney with marked, severe chronic hydronephrosis and severe diffuse cortical thinning. There is a large, presumably chronically obstructing stone at the left renal pelvis region measuring 3.0 x 2.0 cm in size. Additional smaller nonobstructing left renal stones are also present. Renal US showing chronic severe left hydronephrosis and severe left kidney atrophy UA is not consistent with UTI. Known finding per patient hx. 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 Emerson this is an incidental finding and not contributing to his current illness Urology felt the right renal stones should be treated and will arrange for this as outpatient. (7) Rheumatoid arthritis: Qualifiers: Rheumatoid arthritis location: unspecified site Rheumatoid factor presence: unspecified presence Qualified Code(s): M06.9 - Rheumatoid arthritis, unspecified Code(s): M06.9 - Rheumatoid arthritis, unspecified Status: Chronic Assessment and Plan: Hx of RA. No immunosuppressive agents listed. 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 On 4L. Has PFO Wean O2 as tolerated Follow Plan DVT Prophylaxis - Heparin Code status - Full Subjective Date/time seen: 05/04/24 14:50 Interval history: 83yo male with CKD, RA, psoriasis and BPH here for abdominal pain. Weaned down on NE overnight and NE weaned off this morning. Tolerating ice chips. no Abd pain. No flatus or BMs. No CP. Complains of dry mouth. Exam Narrative: AF 99.5 91/47 92 17 93% ra Gen - NARD sitting up in bed HEENT - NGT secured Chest - lungs clear anteriorly. Left subclavian central line in place. CV - irregularly irregular. Tele showing AFib with controlled. rate Abd - soft, distended, lower abd dressing clean and dry. Drain in place with serosang fluid in bulb. Hypoactive BS. - Vann secured draining clear yellow urine Ext - trace pedal edema. Psych - normal mood and affect. Skin - cool and dry. Objective Data Vital Signs Vital Signs: Vital Signs - 24 hr 05/03/24 14:55 05/03/24 15:07 05/03/24 15:14 Temperature 98.3 F Pulse Rate 86 88 93 Respiratory Rate 17 Blood Pressure 84/48 L 86/51 L 88/50 L Pulse Oximetry 90 Oxygen Delivery Oxygen Flow Rate Fraction of Inspired Oxygen 05/03/24 15:20 05/03/24 15:26 05/03/24 15:32 Temperature Pulse Rate 93 89 87 Respiratory Rate Blood Pressure 89/51 L 89/52 L 87/50 L Pulse Oximetry Oxygen Delivery Oxygen Flow Rate Fraction of Inspired Oxygen 05/03/24 15:38 05/03/24 16:00 05/03/24 16:00 Temperature Pulse Rate 83 84 Respiratory Rate Blood Pressure 89/51 L 92/54 L Pulse Oximetry 90 Oxygen Delivery Nasal Cannula Oxygen Flow Rate 4 Fraction of Inspired Oxygen 05/03/24 16:00 05/03/24 16:07 05/03/24 16:21 Temperature 98.5 F Pulse Rate 92 96 81 Respiratory Rate 23 H Blood Pressure 93/52 L 85/48 L Pulse Oximetry 90 Oxygen Delivery Oxygen Flow Rate Fraction of Inspired Oxygen 05/03/24 16:26 05/03/24 16:32 05/03/24 16:37 Temperature Pulse Rate 90 85 86 Respiratory Rate Blood Pressure 90/50 L 84/49 L 75/41 L Pulse Oximetry Oxygen Delivery Oxygen Flow Rate Fraction of Inspired Oxygen 05/03/24 16:42 05/03/24 16:47 05/03/24 16:52 Temperature Pulse Rate 91 96 99 Respiratory Rate Blood Pressure 90/49 L 108/62 180/88 H Pulse Oximetry Oxygen Delivery Oxygen Flow Rate Fraction of Inspired Oxygen 05/03/24 16:57 05/03/24 17:02 05/03/24 17:07 Temperature Pulse Rate 108 H 105 H 107 H Respiratory Rate Blood Pressure 159/76 H 137/63 125/60 Pulse Oximetry Oxygen Delivery Oxygen Flow Rate Fraction of Inspired Oxygen 05/03/24 18:00 05/03/24 18:00 05/03/24 20:00 Temperature Pulse Rate 91 91 92 Respiratory Rate Blood Pressure 96/46 L 100/54 L Pulse Oximetry Oxygen Delivery Oxygen Flow Rate Fraction of Inspired Oxygen 05/03/24 20:00 05/03/24 20:00 05/03/24 20:00 Temperature 98.6 F Pulse Rate 94 98 98 Respiratory Rate 13 13 Blood Pressure 100/54 L 100/54 L Pulse Oximetry 97 97 Oxygen Delivery Nasal Cannula Oxygen Flow Rate 2 Fraction of Inspired Oxygen 05/03/24 20:00 05/03/24 20:34 05/03/24 20:45 Temperature Pulse Rate 101 H 98 99 Respiratory Rate Blood Pressure 92/49 L 103/54 L Pulse Oximetry Oxygen Delivery Oxygen Flow Rate Fraction of Inspired Oxygen 05/03/24 22:00 05/03/24 22:00 05/03/24 22:00 Temperature 98.7 F Pulse Rate 101 H 116 H 101 H Respiratory Rate 14 Blood Pressure 102/73 87/54 L Pulse Oximetry 96 Oxygen Delivery Oxygen Flow Rate Fraction of Inspired Oxygen 05/03/24 23:00 05/04/24 00:00 05/04/24 00:00 Temperature 98.4 F Pulse Rate 103 H 103 H 103 H Respiratory Rate 14 Blood Pressure 104/51 L 113/57 L 113/74 Pulse Oximetry 97 Oxygen Delivery Oxygen Flow Rate Fraction of Inspired Oxygen 05/04/24 00:00 05/04/24 00:00 05/04/24 00:00 Temperature Pulse Rate 101 H 98 103 H Respiratory Rate 13 Blood Pressure 113/57 L Pulse Oximetry 97 Oxygen Delivery Nasal Cannula Oxygen Flow Rate 2 Fraction of Inspired Oxygen 05/04/24 02:00 05/04/24 02:00 05/04/24 02:00 Temperature 98.2 F Pulse Rate 105 H 105 H 102 H Respiratory Rate 13 Blood Pressure 113/56 L 116/57 L Pulse Oximetry 97 Oxygen Delivery Oxygen Flow Rate Fraction of Inspired Oxygen 05/04/24 03:00 05/04/24 03:15 05/04/24 03:30 Temperature Pulse Rate 104 H 105 H 103 H Respiratory Rate Blood Pressure 125/65 121/63 114/56 L Pulse Oximetry Oxygen Delivery Oxygen Flow Rate Fraction of Inspired Oxygen 05/04/24 04:00 05/04/24 04:00 05/04/24 04:00 Temperature 98.2 F Pulse Rate 101 H 120 H 120 H Respiratory Rate 12 Blood Pressure 110/54 L 116/57 L 110/57 L Pulse Oximetry 98 Oxygen Delivery Oxygen Flow Rate Fraction of Inspired Oxygen 05/04/24 04:00 05/04/24 04:00 05/04/24 05:15 Temperature Pulse Rate 98 97 101 H Respiratory Rate 13 Blood Pressure 123/61 Pulse Oximetry 97 Oxygen Delivery Nasal Cannula Oxygen Flow Rate 2 Fraction of Inspired Oxygen 05/04/24 05:30 05/04/24 06:00 05/04/24 06:00 Temperature 98.2 F Pulse Rate 99 95 93 Respiratory Rate 12 Blood Pressure 105/54 L 99/51 L 99/51 L Pulse Oximetry 98 Oxygen Delivery Oxygen Flow Rate Fraction of Inspired Oxygen 05/04/24 06:00 05/04/24 07:00 05/04/24 07:15 Temperature Pulse Rate 93 101 H 105 H Respiratory Rate Blood Pressure 121/63 127/63 Pulse Oximetry Oxygen Delivery Oxygen Flow Rate Fraction of Inspired Oxygen 05/04/24 08:00 05/04/24 08:00 05/04/24 08:00 Temperature 98.6 F Pulse Rate 95 95 Respiratory Rate 19 Blood Pressure 115/57 L 99/76 L Pulse Oximetry 96 97 Oxygen Delivery Nasal Cannula Oxygen Flow Rate 2 Fraction of Inspired Oxygen 05/04/24 08:21 05/04/24 09:34 05/04/24 10:00 Temperature 99.3 F Pulse Rate 90 96 Respiratory Rate 19 Blood Pressure 95/63 L 104/57 L Pulse Oximetry 96 92 Oxygen Delivery Nasal Cannula Oxygen Flow Rate 1 Fraction of Inspired Oxygen 24 05/04/24 11:00 05/04/24 12:00 05/04/24 12:00 Temperature 99.3 F Pulse Rate 105 H 99 Respiratory Rate 16 Blood Pressure 111/63 107/61 Pulse Oximetry 92 95 Oxygen Delivery Room Air Oxygen Flow Rate Fraction of Inspired Oxygen 05/04/24 12:00 05/04/24 14:00 05/04/24 14:00 Temperature 99.5 F Pulse Rate 99 91 101 H Respiratory Rate 17 Blood Pressure 103/58 L 93/52 L 93/63 L Pulse Oximetry 93 Oxygen Delivery Oxygen Flow Rate Fraction of Inspired Oxygen 05/04/24 14:22 Temperature Pulse Rate 92 Respiratory Rate Blood Pressure 91/47 L Pulse Oximetry Oxygen Delivery Oxygen Flow Rate Fraction of Inspired Oxygen Intake/Output Intake/Output: Intake & Output 05/01/24 05/02/24 05/03/24 05/04/24 23:59 23:59 23:59 23:59 Intake Total 5214.4 5322.0 963.1 Output Total 3645 2270 1010 Balance 1569.4 3052.0 -46.9 Meds/Results Medications: Active Medications Generic Name Dose Route Start Last Admin Trade Name Freq PRN Reason Stop Dose Admin Acetaminophen 650 mg 05/02/24 20:45 05/02/24 20:40 Acetaminophen Elixir 325 Mg/10.15 Ml Udc FEED TUBE 650 mg Q6H PRN Administration Mild Pain (1-3) or Fever Brimonidine Tartrate 1 drop 05/02/24 14:00 05/04/24 13:02 Brimonidine Tartrate 0.2% Op Soln 5 Ml Btl EACH EYE 1 drop Q8HR EVER Administration Brinzolamide 1 drop 05/02/24 14:00 05/04/24 13:02 Brinzolamide 1% Ophth Susp 10 Ml EACH EYE 1 drop Q8HR EVER Administration Heparin Sodium (Porcine) 5,000 units 05/02/24 14:00 05/04/24 13:01 Heparin Sodium 5,000 Units/Ml Vial SUB-Q 5,000 units Q8HR EVER Administration Hydrocortisone Sodium Succinate 50 mg 05/04/24 18:00 Hydrocortisone Sodium Succinate 100 Mg/2 Ml Vial IV PUSH 05/05/24 23:59 Q8HR EVER Cefepime HCl 2 gm in 50 mls @ 100 mls/hr 05/03/24 03:00 05/04/24 06:18 Maxipime 2 Gm/Ns 50 Ml IVPB 100 mls/hr Q24H EVER Administration Metronidazole 500 mg in 100 mls @ 100 mls/hr 05/02/24 12:00 05/04/24 13:00 Flagyl 500 Mg/Iso Soln 100 Ml IVPB 100 mls/hr Q8H EVER Administration Norepinephrine Bitartrate 8 mg in 250 mls @ 9.375 mls/hr 05/02/24 10:40 05/04/24 14:22 Levophed 8 Mg/D5w 250 Ml IV CONT 5 mcg/min .Q24H EVER 9.38 mls/hr Titration Protocol 5 MCG/MIN Vasopressin 100 units/ 100 mls @ 0 mls/hr 05/02/24 11:55 05/03/24 08:00 Dextrose IV CONT 0 units/min .Q0M EVER 0 mls/hr Titration Protocol 0 UNITS/MIN Latanoprost 1 drop 05/02/24 21:00 05/03/24 20:15 Latanoprost 0.005% Op Soln 2.5 Ml Btl RIGHT EYE 1 drop HS EVER Administration Morphine Sulfate 2 mg 05/03/24 14:22 Morphine Sulfate (*Crx) 2 Mg/Ml Inj IV PUSH Q2H PRN Breakthrough Pain Rated 4-6 or NPO Morphine Sulfate 4 mg 05/03/24 14:22 Morphine Sulfate (*Crx) 4 Mg/Ml Inj IV PUSH Q2H PRN Breakthrough Pain Rated 7-10 or NPO Naloxone HCl 0.1 mg 05/03/24 14:22 Naloxone Hcl 0.4 Mg/Ml Vial IV PUSH Q2M PRN Opiate Reversal Ondansetron HCl 4 mg 05/02/24 10:09 05/02/24 16:02 Ondansetron Inj 4 Mg/2 Ml Vial IV PUSH 4 mg Q6H PRN Administration Nausea And Vomiting Pantoprazole Sodium 40 mg 05/03/24 09:00 05/04/24 09:26 Pantoprazole Sodium Iv 40 Mg Vial IV PUSH 40 mg QAM EVER Administration Perflutren Lipid Microsphere 0 ml 05/03/24 07:19 Perflutren Lipid Microspheres 1.5 Ml Vial Diluted To 10 Ml Total Volume IV PUSH 05/06/24 07:19 ONCE PRN adequate visualization Protocol Sodium Chloride 10 ml 05/03/24 06:00 05/04/24 13:02 Central Line Flush IV PUSH 10 ml Q8HR EVER Administration Sodium Chloride 20 ml 05/03/24 05:52 Central Line Flush IV PUSH PRN PRN after blood draws Vancomycin HCl 1 each 05/02/24 15:13 Vancomycin For Acute Kidney Injury IVPB PRN PRN Vancomycin Protocol Radiology Results: ITS Impressions Abdomen X-Ray 05/02/24 06:01 Impression: NG tube in satisfactory position. Suspected small bowel obstruction. Renal Ultrasound 05/02/24 15:30 IMPRESSION: 1. Chronic severe left hydronephrosis. Severe left kidney atrophy. 2. Nonobstructing right kidney stone. Abdomen/Pelvis CT 05/02/24 18:09 IMPRESSION: 1. Small bowel obstruction secondary to a left inguinal hernia containing small bowel. 2. Small volume of ascites. 3. Moderate-sized sliding hiatal hernia. 4. Left kidney stones including a stone in the renal pelvis with chronic severe hydronephrosis and severe kidney atrophy. 5. Nonobstructing right kidney stones. Chest X-Ray 05/04/24 06:11 IMPRESSION: 1. Stable airspace opacities in the lower lung zones, consistent with atelectasis versus pneumonia. 2. Cardiomegaly. Labs Labs: Laboratory Results - last 24 hr 05/03/24 05/04/24 16:47 04:48 WBC 3.6 L 7.9 RBC 3.72 L 3.79 L Hgb 10.6 L 10.4 L Hct 31.8 L 32.4 L MCV 85.5 85.5 MCH 28.5 27.4 MCHC 33.3 32.1 RDW 15.2 H 15.3 H Plt Count 109 L 108 L MPV 9.6 10.4 Immature Gran % (Auto) 3.9 H Neut % (Auto) 85.0 H Lymph % (Auto) 4.8 L [place] % (Auto) 6.3 Eos % (Auto) 0.0 Baso % (Auto) 0.0 L Lymph # (Auto) 0.38 L [place] # (Auto) 0.5 Eos # (Auto) 0.0 Baso # (Auto) 0.0 Abs Immat Gran (auto) 0.31 H Absolute Neuts (auto) 6.7 Absolute Nucleated RBC 0.000 Nucleated RBC % 0.0 Platelet Estimate Slightly decreased Poikilocytosis 1+ Anisocytosis 1+ Schistocytes None seen PT 22.8 H 19.6 H INR 1.9 1.6 APTT 39.8 H Sodium 140 143 Potassium 3.5 3.3 L Chloride 110 H 109 H Carbon Dioxide 20 L 26 Anion Gap 10 8 BUN 68 H 69 H Creatinine 3.20 H 3.10 H Estim Creat Clear Calc 17 18 Estimated GFR 19 L 19 L Glucose 116 H 134 H Lactic Acid 2.3 H 1.5 Calcium 7.9 L 8.0 L Phosphorus 5.0 H 4.3 Magnesium 2.1 2.2 Total Bilirubin 0.9 0.8 AST 39 34 ALT 24 24 Alkaline Phosphatase 35 L 44 Total Creatine Kinase 102 C-Reactive Protein 35.1 H Total Protein 6.0 L 6.0 L Albumin 3.3 L 3.5 Lipase 18 L
[2024-05-04 15:15] LABS: Vancomycin Random 16.6 ug/mL (10-20)
[2024-05-04] MEDS: VANCOMYCIN 1,250 MG/NS 250 ML 1,250 MG/250 ML BAG 166.67 MG IVPB (15:53)
[2024-05-04] MEDS: HYDROCORTISONE SODIUM SUCCINATE 100 MG/2 ML VIAL 50 MG IV PUSH ×2 (18:30→21:23)
[2024-05-04] MEDS: LATANOPROST 0.005% OP SOLN 2.5 ML BTL 1 DROP RIGHT EYE (21:19)
[2024-05-05] VITALS (24 sets, daily range): BP systolic 81–130; BP diastolic 52–97; PULSE 77–108; RESP 11–23; TEMP 36.9–37.4; O2SAT 88–98
[2024-05-05] MEDS: CEFEPIME 2 GM/NS 50 ML 2 GM/50 ML BAG IVPB (03:26)
[2024-05-05] MEDS: metroNIDAZOLE 500 MG/ISO 100ML 500 MG/100 ML BAG 100 MG IVPB ×3 (04:53→20:29)
[2024-05-05] MEDS: BRINZOLAMIDE 1% OPHTH SUSP 10 ML 1 DROP EACH EYE ×3 (04:55→21:08)
[2024-05-05] MEDS: HEPARIN SODIUM 5,000 UNITS/ML VIAL 5000 UNITS SUB-Q ×3 (05:07→21:08)
[2024-05-05] MEDS: CENTRAL LINE FLUSH 10 ML IV PUSH ×3 (05:08→20:33)
[2024-05-05] MEDS: HYDROCORTISONE SODIUM SUCCINATE 100 MG/2 ML VIAL 50 MG IV PUSH ×3 (05:08→21:08)
[2024-05-05] MEDS: BRIMONIDINE TARTRATE 0.2% OP SOLN 5 ML BTL 1 DROP EACH EYE ×3 (05:08→21:49)
[2024-05-05 05:39] LABS: Hemoglobin 10.4 g/dL (14.0-18.0); Immature Platelet Fraction Pct 2.6 % (0.9-11.2); Mean Corpuscular HGB Conc 32.5 g/dl (32-36); Mean Corpuscular Hemoglobin 28.4 pg (26-34); Mean Corpuscular Volume 87.4 fl (80-100); Mean Platelet Volume 11.2 fl (7.4-10.4); Platelet Count Result 100 k/mm3 (150-375); Red Blood Count 3.66 M/mm3 (4.6-6.20); Red Cell Distribution Width 15.6 % (11.5-14.5)
[2024-05-05 05:51] LABS: Alanine Aminotransferase 22 U/L (6-50); Albumin Level 3.2 g/dL (3.5-5.1); Alkaline Phosphatase 59 U/L (38-126); Anion Gap 7 mmol/L (4-12); Aspartate Amino Transferase 21 U/L (17-59); Bilirubin,Total 0.6 mg/dL (0.2-1.3); Blood Urea Nitrogen 77 mg/dL (9-20); Calcium 8.4 mg/dL (8.4-10.2); Carbon Dioxide 27 mmol/L (22-30); Chloride 112 mmol/L (98-107); Estimated CRCL calculation 19 ml/min; Estimated Glomerular Filt Rate 18; Glucose 107 mg/dL (65-110); Magnesium 2.5 mg/dL (1.6-2.3); Phosphorus 3.9 mg/dL (2.5-4.5); Potassium 3.3 mmol/L (3.4-5.0); Sodium 146 mmol/L (137-145)
[2024-05-05 06:55] LABS: Band Neutrophils Percent 15 % (0-6); Burr Cells 1+; Dohle Bodies Present; Lymphocytes Absolute Manual 0.72 K/mm3 (1.1-4.5); Lymphocytes Percent Manual 6 % (18-44); Monocytes Absolute Manual 0.84 K/mm3 (0.1-0.90); Monocytes Percent Manual 7 % (3-9); Neutrophils Absolute Manual 10.44 K/mm3 (1.3-6.7); Neutrophils Percent Manual 72 % (46-73); Platelet Estimate Slightly Decreased (Adequate); Total Cells Counted 100
[2024-05-05 06:56] LABS: Schistocytes None Seen
[2024-05-05] MEDS: KCL 40 MEQ/WATER 100 ML 100 ML 25 ML IVPB (09:03)
[2024-05-05] MEDS: PANTOPRAZOLE SODIUM IV 40 MG VIAL IV PUSH (09:03)
--- NOTE | 2024-05-05 09:40 | WPDINTPN ---
Progress Note: A&P Assessment and Plan (1) Shock: Code(s): R57.9 - Shock, unspecified Status: Acute Assessment and Plan: 05/02: Patient presented with nausea, vomiting, abdominal pain, abdominal distension. CT scan of the abdomen and pelvis showed small-bowel obstruction with incarcerated hernia -NG tube inserted with immediate drainage of 1500 mL in the ER in and approximately 500 mL gastric drainage in the ICU -patient was given 3 L IV fluids in the ER -left subclavian line was inserted in the ER on 05/02 -continue Levophed to maintain MAP > 65 mmHg at all times for adequate end organ perfusion -off vasopressin -continue cefepime, vancomycin and Flagyl (05/02) 05/02: Preliminary Blood cultures are negative so far -discontinue sodium bicarb 05/05: Off Levophed, adequate blood pressures, art line correlating with cough pressures. Will discontinue art line -patient had bowel movements overnight x2, bowel sounds more active this morning. Will discuss with surgery regarding advancing patient to clear liquid diet 05/02: Repeat CT abdomen and pelvis 1. Small bowel obstruction secondary to a left inguinal hernia containing small bowel. 2. Small volume of ascites. 3. Moderate-sized sliding hiatal hernia. 4. Left kidney stones including a stone in the renal pelvis with chronic severe hydronephrosis and severe kidney atrophy. 5. Nonobstructing right kidney stones. 05/02: CT abdomen pelvis on admission: Small bowel obstruction, with transition point related to left inguinal hernia which contains a loop of small bowel as well as ascitic fluid. 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 Additional bilateral nonobstructing renal stones, as detailed above. Small amount of ascites. (2) Incarcerated left inguinal hernia: Code(s): K40.30 - Unilateral inguinal hernia, with obstruction, without gangrene, not specified as recurrent Status: Acute Assessment and Plan: Incarcerated left inguinal hernia on CT scan of the abdomen and pelvis -appreciate surgery evaluation and recommendation -continue NG tube to drainage, bowel rest, antibiotics -left inguinal hernia was reduced with manual pressure by the surgeon. -05/03: Status post open incarcerated left inguinal hernia repair with mesh -continue to monitor left inguinal drain output -discussed with surgery, mild delay in function a postop ileus could be expected, may start TPN of bowel function does not improve in 1-2 days. (3) SBO (small bowel obstruction): Code(s): K56.609 - Unspecified intestinal obstruction, unspecified as to partial versus complete obstruction Status: Acute Assessment and Plan: As above -continue NG drainage,bowel rest, antibiotics 05/05: Patient had bowel movements (4) Acute on chronic renal failure: Code(s): N17.9 - Acute kidney failure, unspecified; N18.9 - Chronic kidney disease, unspecified Status: Acute Assessment and Plan: Patient with acute on chronic kidney disease. Presented the ED with a creatinine of 2.50 on 05/02 (baseline creatinine 1.20-1.60) - prior to admission pt was on Amlodipine, atenolol for HTN, -etiology is likely related to septic shock, hypotension, ATN, contrast induced nephropathy, SBO/infection -patient received adequate amount of IV fluids, -weaning pressors -monitor urine output, electrolytes and renal function -CT of the abdomen showed severe chronic obstructive uropathy of the left kidney with hydronephrosis -urine lytes with possible prerenal but pt has received adequate IVF -will DC sodium bicarb infusion maintenance IV fluids -UA was normal, negative urine eosinophils, CK level normal -appreciate Nephrology evaluation and recommendations -05/05: Urine output has been adequate, creatinine stable (5) Obstructive uropathy: Code(s): N13.9 - Obstructive and reflux uropathy, unspecified Status: Acute Assessment and Plan: CT scan of the abdomen and pelvis: Severe chronic obstructive uropathy of the left kidney, with enlargement of the left kidney, severe hydronephrosis and severe diffuse cortical thinning. Additional bilateral nonobstructing renal stones, -appreciate urology evaluation and recommendation, no intervention at this time as the marked hydronephrosis on the atrophy of the left kidney is chronic in nature. -Right kidney stones, follow-up with Urology after discharge to discuss further intervention (6) Atrial fibrillation: Code(s): I48.91 - Unspecified atrial fibrillation Status: Acute Assessment and Plan: New onset atrial fibrillation, currently rate controlled, likely related to septic shock, infection -appreciate cardiology evaluation and recommendations, hold anticoagulation at this time as status post inguinal hernia, -he may need to be started on anticoagulation once okay with surgery -will be cautious since his platelet counts are low Plan DVT prophylaxis: Heparin subQ Stress ulcer prophylaxis: Protonix Nutrition: NPO Code Status: Full code Critical Care Time Spent: 32 minutes I updated the patient and his spouse with patient's condition and plan of care. I answered all the questions Due to a high probability of clinically significant, life threatening deterioration, the patient required my highest level of preparedness to intervene emergently and I personally spent this critical care time directly and personally managing the patient. This critical care time included obtaining a history; examining the patient; pulse oximetry; ordering and review of studies; arranging urgent treatment with development of a management plan; evaluation of patient's response to treatment; frequent reassessment; and discussions with other providers. It was exclusive of separately billable procedures and treating other patients and teaching time. Please see Assessment and Plan section and the rest of the note for further information on patient assessment and treatment This dictation may have been done utilizing a voice recognition system. Attempts have been made to correct errors. However, there may be uncorrected grammatical, spelling, and recognitions errors present. Subjective Date/time seen: 05/05/24 09:40 Interval history: Reason for consult: Incarcerated left inguinal hernia, small-bowel obstruction, acute on chronic renal failure 05/05/2024: Patient seen and examined the ICU is awake, alert, oriented, answers to questions appropriately and follows simple commands in all extremities. Patient remains on room air with adequate O2 sats. Your urine output has been adequate. Patient has had bowel movements overnight. Abdominal is soft and less distended this morning. Patient is off Levophed NG drainage slowing down. Review of Systems Review of Systems: All systems reviewed & are unremarkable except as noted in HPI and below Exam Narrative: General: Pleasant gentleman in no acute distress HEENT:? Pupils equal and reactive, sclera is clear, moist oral mucosa, NG tube in place Neck:? Supple Respiratory:? Coarse breath sounds on left base, adequate air entry, no wheezing Cardiac:? S1-S2 normal, regular rate and rhythm Abdomen:? Soft, less distended, normoactive bowel sounds, left inguinal hernia incision is clean, dry and intact, Ministerio drain in place Extremities:? Trace edema, palpable pedal pulse Neuro:? Patient is awake, alert, oriented x3, nonfocal, answers to questions appropriately and follows simple commands in all extremities Skin:? Warm and dry Psych:? Normal mentation affect Objective Data Vital Signs Vital Signs: Vital Signs - 24 hr 05/04/24 10:00 05/04/24 10:00 05/04/24 11:00 Temperature 99.3 F Pulse Rate 96 94 105 H Respiratory Rate 19 Blood Pressure 104/57 L 111/63 Pulse Oximetry 92 Oxygen Delivery Oxygen Flow Rate Fraction of Inspired Oxygen 05/04/24 12:00 05/04/24 12:00 05/04/24 12:00 Temperature 99.3 F Pulse Rate 99 99 Respiratory Rate 16 Blood Pressure 107/61 103/58 L Pulse Oximetry 92 95 Oxygen Delivery Room Air Oxygen Flow Rate Fraction of Inspired Oxygen 05/04/24 12:00 05/04/24 14:00 05/04/24 14:00 Temperature 99.5 F Pulse Rate 108 H 91 101 H Respiratory Rate 17 Blood Pressure 93/52 L 93/63 L Pulse Oximetry 93 Oxygen Delivery Oxygen Flow Rate Fraction of Inspired Oxygen 05/04/24 14:00 05/04/24 14:22 05/04/24 15:52 Temperature Pulse Rate 95 92 106 H Respiratory Rate Blood Pressure 91/47 L 91/66 L Pulse Oximetry Oxygen Delivery Oxygen Flow Rate Fraction of Inspired Oxygen 05/04/24 16:00 05/04/24 16:00 05/04/24 16:00 Temperature 99.5 F Pulse Rate 114 H 109 H Respiratory Rate 21 H Blood Pressure 111/79 Pulse Oximetry 93 90 Oxygen Delivery Room Air Oxygen Flow Rate Fraction of Inspired Oxygen 05/04/24 17:00 05/04/24 18:00 05/04/24 18:00 Temperature 99.8 F H Pulse Rate 110 H 103 H 107 H Respiratory Rate 17 Blood Pressure 95/59 L 112/57 L Pulse Oximetry 91 Oxygen Delivery Oxygen Flow Rate Fraction of Inspired Oxygen 05/04/24 18:00 05/04/24 18:30 05/04/24 19:15 Temperature Pulse Rate 106 H 105 H 99 Respiratory Rate Blood Pressure 107/92 H 113/60 103/53 L Pulse Oximetry Oxygen Delivery Oxygen Flow Rate Fraction of Inspired Oxygen 05/04/24 20:00 05/04/24 20:00 05/04/24 20:00 Temperature 99.5 F Pulse Rate 100 98 98 Respiratory Rate 17 Blood Pressure 112/60 123/65 Pulse Oximetry 91 Oxygen Delivery Oxygen Flow Rate Fraction of Inspired Oxygen 05/04/24 20:00 05/04/24 20:15 05/04/24 20:45 Temperature Pulse Rate 103 H 98 Respiratory Rate Blood Pressure 107/56 L 98/52 L Pulse Oximetry 91 Oxygen Delivery Room Air Oxygen Flow Rate Fraction of Inspired Oxygen 05/04/24 21:30 05/04/24 22:00 05/04/24 22:00 Temperature 99.2 F Pulse Rate 99 98 98 Respiratory Rate 18 Blood Pressure 104/56 L 116/77 Pulse Oximetry 95 Oxygen Delivery Oxygen Flow Rate Fraction of Inspired Oxygen 05/04/24 22:30 05/04/24 23:30 05/04/24 23:59 Temperature Pulse Rate 100 93 88 Respiratory Rate Blood Pressure 89/62 L 90/80 L 93/66 L Pulse Oximetry Oxygen Delivery Oxygen Flow Rate Fraction of Inspired Oxygen 05/05/24 00:00 05/05/24 00:00 05/05/24 00:00 Temperature 99.0 F Pulse Rate 92 92 Respiratory Rate 12 Blood Pressure 89/57 L 89/57 L Pulse Oximetry 88 L 90 Oxygen Delivery Nasal Cannula Oxygen Flow Rate 2 Fraction of Inspired Oxygen 05/05/24 00:00 05/05/24 01:00 05/05/24 02:00 Temperature Pulse Rate 87 91 91 Respiratory Rate Blood Pressure 108/57 L Pulse Oximetry Oxygen Delivery Oxygen Flow Rate Fraction of Inspired Oxygen 05/05/24 02:00 05/05/24 02:00 05/05/24 02:45 Temperature 98.7 F Pulse Rate 91 91 86 Respiratory Rate 11 L Blood Pressure 102/52 L 102/52 L 87/59 L Pulse Oximetry 98 Oxygen Delivery Oxygen Flow Rate Fraction of Inspired Oxygen 05/05/24 03:00 05/05/24 03:15 05/05/24 03:30 Temperature Pulse Rate 91 91 92 Respiratory Rate Blood Pressure 120/63 113/59 L 116/60 Pulse Oximetry Oxygen Delivery Oxygen Flow Rate Fraction of Inspired Oxygen 05/05/24 03:43 05/05/24 03:46 05/05/24 04:00 Temperature Pulse Rate 85 82 Respiratory Rate Blood Pressure 111/58 L Pulse Oximetry 96 Oxygen Delivery Nasal Cannula Oxygen Flow Rate 2 Fraction of Inspired Oxygen 05/05/24 04:00 05/05/24 04:30 05/05/24 05:24 Temperature 98.5 F Pulse Rate 82 89 Respiratory Rate 12 Blood Pressure 105/53 L 108/57 L Pulse Oximetry 96 Oxygen Delivery Room Air Oxygen Flow Rate Fraction of Inspired Oxygen 96 05/05/24 05:30 05/05/24 06:00 05/05/24 06:00 Temperature 98.5 F Pulse Rate 93 90 95 Respiratory Rate 17 Blood Pressure 98/83 L 120/62 Pulse Oximetry 95 Oxygen Delivery Oxygen Flow Rate Fraction of Inspired Oxygen 05/05/24 06:00 05/05/24 07:00 05/05/24 08:00 Temperature 98.5 F Pulse Rate 85 84 86 Respiratory Rate 19 Blood Pressure 103/88 81/65 L 114/54 L Pulse Oximetry 93 Oxygen Delivery Oxygen Flow Rate Fraction of Inspired Oxygen 05/05/24 08:00 05/05/24 08:00 Temperature Pulse Rate 87 94 Respiratory Rate Blood Pressure 86/54 L Pulse Oximetry Oxygen Delivery Oxygen Flow Rate Fraction of Inspired Oxygen Intake/Output Intake/Output: Intake & Output 05/02/24 05/03/24 05/04/24 05/05/24 23:59 23:59 23:59 23:59 Intake Total 5214.4 5322.0 1492.6 181.6 Output Total 3645 2270 1857 830 Balance 1569.4 3052.0 -364.4 -648.4 Meds/Results Medications: Active Medications Generic Name Dose Route Start Last Admin Trade Name Freq PRN Reason Stop Dose Admin Acetaminophen 650 mg 05/02/24 20:45 05/02/24 20:40 Acetaminophen Elixir 325 Mg/10.15 Ml Udc FEED TUBE 650 mg Q6H PRN Administration Mild Pain (1-3) or Fever Brimonidine Tartrate 1 drop 05/02/24 14:00 05/05/24 05:08 Brimonidine Tartrate 0.2% Op Soln 5 Ml Btl EACH EYE 1 drop Q8HR EVER Administration Brinzolamide 1 drop 05/02/24 14:00 05/05/24 04:55 Brinzolamide 1% Ophth Susp 10 Ml EACH EYE 1 drop Q8HR EVER Administration Heparin Sodium (Porcine) 5,000 units 05/02/24 14:00 05/05/24 05:07 Heparin Sodium 5,000 Units/Ml Vial SUB-Q 5,000 units Q8HR EVER Administration Hydrocortisone Sodium Succinate 50 mg 05/04/24 18:00 05/05/24 05:08 Hydrocortisone Sodium Succinate 100 Mg/2 Ml Vial IV PUSH 05/05/24 23:59 50 mg Q8HR EVER Administration Cefepime HCl 2 gm in 50 mls @ 100 mls/hr 05/03/24 03:00 05/05/24 03:56 Maxipime 2 Gm/Ns 50 Ml IVPB Infused Q24H EVER Infusion Metronidazole 500 mg in 100 mls @ 100 mls/hr 05/02/24 12:00 05/05/24 05:53 Flagyl 500 Mg/Iso Soln 100 Ml IVPB Infused Q8H EVER Infusion Norepinephrine Bitartrate 8 mg in 250 mls @ 1.875 mls/hr 05/02/24 10:40 05/05/24 07:00 Levophed 8 Mg/D5w 250 Ml IV CONT 0 mcg/min .Q24H EVER 0 mls/hr Titration Protocol 1 MCG/MIN Vasopressin 100 units/ 100 mls @ 0 mls/hr 05/02/24 11:55 05/03/24 08:00 Dextrose IV CONT 0 units/min .Q0M EVER 0 mls/hr Titration Protocol 0 UNITS/MIN Potassium Chloride 100 mls @ 25 mls/hr 05/05/24 07:45 05/05/24 09:03 Kcl 40 Meq/Water 100 Ml IVPB 05/05/24 11:44 25 mls/hr ONCE ONE Administration Latanoprost 1 drop 05/02/24 21:00 05/04/24 21:19 Latanoprost 0.005% Op Soln 2.5 Ml Btl RIGHT EYE 1 drop HS EVER Administration Morphine Sulfate 2 mg 05/03/24 14:22 Morphine Sulfate (*Crx) 2 Mg/Ml Inj IV PUSH Q2H PRN Breakthrough Pain Rated 4-6 or NPO Morphine Sulfate 4 mg 05/03/24 14:22 Morphine Sulfate (*Crx) 4 Mg/Ml Inj IV PUSH Q2H PRN Breakthrough Pain Rated 7-10 or NPO Naloxone HCl 0.1 mg 05/03/24 14:22 Naloxone Hcl 0.4 Mg/Ml Vial IV PUSH Q2M PRN Opiate Reversal Ondansetron HCl 4 mg 05/02/24 10:09 05/02/24 16:02 Ondansetron Inj 4 Mg/2 Ml Vial IV PUSH 4 mg Q6H PRN Administration Nausea And Vomiting Pantoprazole Sodium 40 mg 05/03/24 09:00 05/05/24 09:03 Pantoprazole Sodium Iv 40 Mg Vial IV PUSH 40 mg QAM EVER Administration Perflutren Lipid Microsphere 0 ml 05/03/24 07:19 Perflutren Lipid Microspheres 1.5 Ml Vial Diluted To 10 Ml Total Volume IV PUSH 05/06/24 07:19 ONCE PRN adequate visualization Protocol Sodium Chloride 10 ml 05/03/24 06:00 05/05/24 05:08 Central Line Flush IV PUSH 10 ml Q8HR EVER Administration Sodium Chloride 20 ml 05/03/24 05:52 Central Line Flush IV PUSH PRN PRN after blood draws Vancomycin HCl 1 each 05/02/24 15:13 Vancomycin For Acute Kidney Injury IVPB PRN PRN Vancomycin Protocol Radiology Results: ITS Impressions Abdomen X-Ray 05/02/24 06:01 Impression: NG tube in satisfactory position. Suspected small bowel obstruction. Renal Ultrasound 05/02/24 15:30 IMPRESSION: 1. Chronic severe left hydronephrosis. Severe left kidney atrophy. 2. Nonobstructing right kidney stone. Abdomen/Pelvis CT 05/02/24 18:09 IMPRESSION: 1. Small bowel obstruction secondary to a left inguinal hernia containing small bowel. 2. Small volume of ascites. 3. Moderate-sized sliding hiatal hernia. 4. Left kidney stones including a stone in the renal pelvis with chronic severe hydronephrosis and severe kidney atrophy. 5. Nonobstructing right kidney stones. Chest X-Ray 05/04/24 06:11 IMPRESSION: 1. Stable airspace opacities in the lower lung zones, consistent with atelectasis versus pneumonia. 2. Cardiomegaly. Labs Labs: Laboratory Results - last 24 hr 05/04/24 05/04/24 05/05/24 04:48 14:33 05:07 WBC 12.0 H RBC 3.66 L Hgb 10.4 L Hct 32.0 L MCV 87.4 MCH 28.4 MCHC 32.5 RDW 15.6 H Plt Count 100 L MPV 11.2 H Immature Gran % (Auto) Not Reportable Neut % (Auto) Not Reportable Lymph % (Auto) Not Reportable [place] % (Auto) Not Reportable Eos % (Auto) Not Reportable Baso % (Auto) Not Reportable Lymph # (Auto) Not Reportable [place] # (Auto) Not Reportable Eos # (Auto) Not Reportable Baso # (Auto) Not Reportable Abs Immat Gran (auto) Not Reportable Absolute Neuts (auto) Not Reportable Absolute Nucleated RBC Not Reportable Total Counted 100 Neutrophils % (Manual) 72 Band Neutrophils % 15 H Lymphocytes % (Manual) 6 L Monocytes % (Manual) 7 Nucleated RBC % Not Reportable Abs Neuts (Manual) 10.44 H Abs Lymphs (Manual) 0.72 L Abs Monocytes (Manual) 0.84 Dohle Bodies Present Platelet Estimate Slightly decreased % Immature Plt Fraction 2.6 Katerin Cells 1+ Schistocytes None seen Sodium 146 H Potassium 3.3 L Chloride 112 H Carbon Dioxide 27 Anion Gap 7 BUN 77 H Creatinine 3.30 H Estim Creat Clear Calc 19 Estimated GFR 18 L Glucose 107 Calcium 8.4 Phosphorus 3.9 Magnesium 2.5 H Total Bilirubin 0.6 AST 21 ALT 22 Alkaline Phosphatase 59 Total Creatine Kinase 102 Total Protein 6.0 L Albumin 3.2 L TSH (Reflex) 1.600 Random Vancomycin 16.6 Quality VTE Prophylaxis VTE prophylaxis: pharmacologic ordered
--- NOTE | 2024-05-05 10:27 | P.PNGS_ITS ---
Progress Note: A&P Assessment and Plan (1) Incarcerated left inguinal hernia: Code(s): K40.30 - Unilateral inguinal hernia, with obstruction, without gangrene, not specified as recurrent Status: Acute Assessment and Plan: * Improving on POD#2. * NG out and start clear liquids * Transfer out of ICU * Monitor drain output * PT/OT ordered (2) SBO (small bowel obstruction): Code(s): K56.609 - Unspecified intestinal obstruction, unspecified as to partial versus complete obstruction Status: Acute Assessment and Plan: * Resolved with repair of hernia. (3) Acute on chronic renal failure: Code(s): N17.9 - Acute kidney failure, unspecified; N18.9 - Chronic kidney disease, unspecified Status: Acute Assessment and Plan: * BUN/Cr still not improving much, continue to monitor. 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 No abdominal or groin pain. Off Levophed. Exam Const: General: comfortable and no acute distress GI: Inspection: non-distended, incision (intact with glue) and other (RAKAN serosanguinous) GI Palp: Yes Soft to palpation, No Tenderness to palpation present (GI) and No Guarding due to palpation present (GI) Auscultation: normal bowel sounds Objective Data Vital Signs Vital Signs: Vital Signs - 24 hr 05/04/24 11:00 05/04/24 12:00 05/04/24 12:00 Temperature 99.3 F Pulse Rate 105 H 99 Respiratory Rate 16 Blood Pressure 111/63 107/61 Pulse Oximetry 92 95 Oxygen Delivery Room Air Oxygen Flow Rate Fraction of Inspired Oxygen 05/04/24 12:00 05/04/24 12:00 05/04/24 14:00 Temperature 99.5 F Pulse Rate 99 108 H 91 Respiratory Rate 17 Blood Pressure 103/58 L 93/52 L Pulse Oximetry 93 Oxygen Delivery Oxygen Flow Rate Fraction of Inspired Oxygen 05/04/24 14:00 05/04/24 14:00 05/04/24 14:22 Temperature Pulse Rate 101 H 95 92 Respiratory Rate Blood Pressure 93/63 L 91/47 L Pulse Oximetry Oxygen Delivery Oxygen Flow Rate Fraction of Inspired Oxygen 05/04/24 15:52 05/04/24 16:00 05/04/24 16:00 Temperature Pulse Rate 106 H 114 H Respiratory Rate Blood Pressure 91/66 L Pulse Oximetry 93 Oxygen Delivery Room Air Oxygen Flow Rate Fraction of Inspired Oxygen 05/04/24 16:00 05/04/24 17:00 05/04/24 18:00 Temperature 99.5 F Pulse Rate 109 H 110 H 103 H Respiratory Rate 21 H Blood Pressure 111/79 95/59 L Pulse Oximetry 90 Oxygen Delivery Oxygen Flow Rate Fraction of Inspired Oxygen 05/04/24 18:00 05/04/24 18:00 05/04/24 18:30 Temperature 99.8 F H Pulse Rate 107 H 106 H 105 H Respiratory Rate 17 Blood Pressure 112/57 L 107/92 H 113/60 Pulse Oximetry 91 Oxygen Delivery Oxygen Flow Rate Fraction of Inspired Oxygen 05/04/24 19:15 05/04/24 20:00 05/04/24 20:00 Temperature Pulse Rate 99 100 98 Respiratory Rate Blood Pressure 103/53 L 112/60 Pulse Oximetry Oxygen Delivery Oxygen Flow Rate Fraction of Inspired Oxygen 05/04/24 20:00 05/04/24 20:00 05/04/24 20:15 Temperature 99.5 F Pulse Rate 98 103 H Respiratory Rate 17 Blood Pressure 123/65 107/56 L Pulse Oximetry 91 91 Oxygen Delivery Room Air Oxygen Flow Rate Fraction of Inspired Oxygen 05/04/24 20:45 05/04/24 21:30 05/04/24 22:00 Temperature Pulse Rate 98 99 98 Respiratory Rate Blood Pressure 98/52 L 104/56 L Pulse Oximetry Oxygen Delivery Oxygen Flow Rate Fraction of Inspired Oxygen 05/04/24 22:00 05/04/24 22:30 05/04/24 23:30 Temperature 99.2 F Pulse Rate 98 100 93 Respiratory Rate 18 Blood Pressure 116/77 89/62 L 90/80 L Pulse Oximetry 95 Oxygen Delivery Oxygen Flow Rate Fraction of Inspired Oxygen 05/04/24 23:59 05/05/24 00:00 05/05/24 00:00 Temperature 99.0 F Pulse Rate 88 92 Respiratory Rate 12 Blood Pressure 93/66 L 89/57 L Pulse Oximetry 88 L 90 Oxygen Delivery Nasal Cannula Oxygen Flow Rate 2 Fraction of Inspired Oxygen 05/05/24 00:00 05/05/24 00:00 05/05/24 01:00 Temperature Pulse Rate 92 87 91 Respiratory Rate Blood Pressure 89/57 L 108/57 L Pulse Oximetry Oxygen Delivery Oxygen Flow Rate Fraction of Inspired Oxygen 05/05/24 02:00 05/05/24 02:00 05/05/24 02:00 Temperature 98.7 F Pulse Rate 91 91 91 Respiratory Rate 11 L Blood Pressure 102/52 L 102/52 L Pulse Oximetry 98 Oxygen Delivery Oxygen Flow Rate Fraction of Inspired Oxygen 05/05/24 02:45 05/05/24 03:00 05/05/24 03:15 Temperature Pulse Rate 86 91 91 Respiratory Rate Blood Pressure 87/59 L 120/63 113/59 L Pulse Oximetry Oxygen Delivery Oxygen Flow Rate Fraction of Inspired Oxygen 05/05/24 03:30 05/05/24 03:43 05/05/24 03:46 Temperature Pulse Rate 92 85 Respiratory Rate Blood Pressure 116/60 111/58 L Pulse Oximetry 96 Oxygen Delivery Nasal Cannula Oxygen Flow Rate 2 Fraction of Inspired Oxygen 05/05/24 04:00 05/05/24 04:00 05/05/24 04:30 Temperature 98.5 F Pulse Rate 82 82 89 Respiratory Rate 12 Blood Pressure 105/53 L 108/57 L Pulse Oximetry 96 Oxygen Delivery Oxygen Flow Rate Fraction of Inspired Oxygen 05/05/24 05:24 05/05/24 05:30 05/05/24 06:00 Temperature 98.5 F Pulse Rate 93 90 Respiratory Rate 17 Blood Pressure 98/83 L 120/62 Pulse Oximetry 95 Oxygen Delivery Room Air Oxygen Flow Rate Fraction of Inspired Oxygen 96 05/05/24 06:00 05/05/24 06:00 05/05/24 07:00 Temperature Pulse Rate 95 85 84 Respiratory Rate Blood Pressure 103/88 81/65 L Pulse Oximetry Oxygen Delivery Oxygen Flow Rate Fraction of Inspired Oxygen 05/05/24 08:00 05/05/24 08:00 05/05/24 08:00 Temperature 98.5 F Pulse Rate 86 87 94 Respiratory Rate 19 Blood Pressure 114/54 L 86/54 L Pulse Oximetry 93 Oxygen Delivery Oxygen Flow Rate Fraction of Inspired Oxygen 05/05/24 08:00 05/05/24 10:00 Temperature 98.9 F Pulse Rate 87 92 Respiratory Rate 17 12 Blood Pressure 93/68 L Pulse Oximetry 95 92 Oxygen Delivery Room Air Oxygen Flow Rate Fraction of Inspired Oxygen 93 Intake/Output Intake/Output: Intake & Output 05/02/24 05/03/24 05/04/24 05/05/24 23:59 23:59 23:59 23:59 Intake Total 5214.4 5322.0 1492.6 181.6 Output Total 3645 2270 1857 830 Balance 1569.4 3052.0 -364.4 -648.4 Meds/Results Medications: Active Medications Generic Name Dose Route Start Last Admin Trade Name Freq PRN Reason Stop Dose Admin Acetaminophen 650 mg 05/02/24 20:45 05/02/24 20:40 Acetaminophen Elixir 325 Mg/10.15 Ml Udc FEED TUBE 650 mg Q6H PRN Administration Mild Pain (1-3) or Fever Brimonidine Tartrate 1 drop 05/02/24 14:00 05/05/24 05:08 Brimonidine Tartrate 0.2% Op Soln 5 Ml Btl EACH EYE 1 drop Q8HR EVER Administration Brinzolamide 1 drop 05/02/24 14:00 05/05/24 04:55 Brinzolamide 1% Ophth Susp 10 Ml EACH EYE 1 drop Q8HR EVER Administration Heparin Sodium (Porcine) 5,000 units 05/02/24 14:00 05/05/24 05:07 Heparin Sodium 5,000 Units/Ml Vial SUB-Q 5,000 units Q8HR EVER Administration Hydrocortisone Sodium Succinate 50 mg 05/04/24 18:00 05/05/24 05:08 Hydrocortisone Sodium Succinate 100 Mg/2 Ml Vial IV PUSH 05/05/24 23:59 50 mg Q8HR EVER Administration Cefepime HCl 2 gm in 50 mls @ 100 mls/hr 05/03/24 03:00 05/05/24 03:56 Maxipime 2 Gm/Ns 50 Ml IVPB Infused Q24H EVER Infusion Metronidazole 500 mg in 100 mls @ 100 mls/hr 05/02/24 12:00 05/05/24 05:53 Flagyl 500 Mg/Iso Soln 100 Ml IVPB Infused Q8H EVER Infusion Norepinephrine Bitartrate 8 mg in 250 mls @ 1.875 mls/hr 05/02/24 10:40 05/05/24 07:00 Levophed 8 Mg/D5w 250 Ml IV CONT 0 mcg/min .Q24H EVER 0 mls/hr Titration Protocol 1 MCG/MIN Vasopressin 100 units/ 100 mls @ 0 mls/hr 05/02/24 11:55 05/03/24 08:00 Dextrose IV CONT 0 units/min .Q0M EVER 0 mls/hr Titration Protocol 0 UNITS/MIN Potassium Chloride 100 mls @ 25 mls/hr 05/05/24 07:45 05/05/24 09:03 Kcl 40 Meq/Water 100 Ml IVPB 05/05/24 11:44 25 mls/hr ONCE ONE Administration Latanoprost 1 drop 05/02/24 21:00 05/04/24 21:19 Latanoprost 0.005% Op Soln 2.5 Ml Btl RIGHT EYE 1 drop HS EVER Administration Morphine Sulfate 2 mg 05/03/24 14:22 Morphine Sulfate (*Crx) 2 Mg/Ml Inj IV PUSH Q2H PRN Breakthrough Pain Rated 4-6 or NPO Morphine Sulfate 4 mg 05/03/24 14:22 Morphine Sulfate (*Crx) 4 Mg/Ml Inj IV PUSH Q2H PRN Breakthrough Pain Rated 7-10 or NPO Naloxone HCl 0.1 mg 05/03/24 14:22 Naloxone Hcl 0.4 Mg/Ml Vial IV PUSH Q2M PRN Opiate Reversal Ondansetron HCl 4 mg 05/02/24 10:09 05/02/24 16:02 Ondansetron Inj 4 Mg/2 Ml Vial IV PUSH 4 mg Q6H PRN Administration Nausea And Vomiting Pantoprazole Sodium 40 mg 05/03/24 09:00 05/05/24 09:03 Pantoprazole Sodium Iv 40 Mg Vial IV PUSH 40 mg QAM EVER Administration Perflutren Lipid Microsphere 0 ml 05/03/24 07:19 Perflutren Lipid Microspheres 1.5 Ml Vial Diluted To 10 Ml Total Volume IV PUSH 05/06/24 07:19 ONCE PRN adequate visualization Protocol Sodium Chloride 10 ml 05/03/24 06:00 05/05/24 05:08 Central Line Flush IV PUSH 10 ml Q8HR EVER Administration Sodium Chloride 20 ml 05/03/24 05:52 Central Line Flush IV PUSH PRN PRN after blood draws Vancomycin HCl 1 each 05/02/24 15:13 Vancomycin For Acute Kidney Injury IVPB PRN PRN Vancomycin Protocol Radiology Results: ITS Impressions Abdomen X-Ray 05/02/24 06:01 Impression: NG tube in satisfactory position. Suspected small bowel obstruction. Renal Ultrasound 05/02/24 15:30 IMPRESSION: 1. Chronic severe left hydronephrosis. Severe left kidney atrophy. 2. Nonobstructing right kidney stone. Abdomen/Pelvis CT 05/02/24 18:09 IMPRESSION: 1. Small bowel obstruction secondary to a left inguinal hernia containing small bowel. 2. Small volume of ascites. 3. Moderate-sized sliding hiatal hernia. 4. Left kidney stones including a stone in the renal pelvis with chronic severe hydronephrosis and severe kidney atrophy. 5. Nonobstructing right kidney stones. Chest X-Ray 05/04/24 06:11 IMPRESSION: 1. Stable airspace opacities in the lower lung zones, consistent with atelectasis versus pneumonia. 2. Cardiomegaly. Labs Labs: Laboratory Results - last 24 hr 05/04/24 05/05/24 14:33 05:07 WBC 12.0 H RBC 3.66 L Hgb 10.4 L Hct 32.0 L MCV 87.4 MCH 28.4 MCHC 32.5 RDW 15.6 H Plt Count 100 L MPV 11.2 H Immature Gran % (Auto) Not Reportable Neut % (Auto) Not Reportable Lymph % (Auto) Not Reportable Carter % (Auto) Not Reportable Eos % (Auto) Not Reportable Baso % (Auto) Not Reportable Lymph # (Auto) Not Reportable Carter # (Auto) Not Reportable Eos # (Auto) Not Reportable Baso # (Auto) Not Reportable Abs Immat Gran (auto) Not Reportable Absolute Neuts (auto) Not Reportable Absolute Nucleated RBC Not Reportable Total Counted 100 Neutrophils % (Manual) 72 Band Neutrophils % 15 H Lymphocytes % (Manual) 6 L Monocytes % (Manual) 7 Nucleated RBC % Not Reportable Abs Neuts (Manual) 10.44 H Abs Lymphs (Manual) 0.72 L Abs Monocytes (Manual) 0.84 Dohle Bodies Present Platelet Estimate Slightly decreased % Immature Plt Fraction 2.6 [place] Cells 1+ Schistocytes None seen Sodium 146 H Potassium 3.3 L Chloride 112 H Carbon Dioxide 27 Anion Gap 7 BUN 77 H Creatinine 3.30 H Estim Creat Clear Calc 19 Estimated GFR 18 L Glucose 107 Calcium 8.4 Phosphorus 3.9 Magnesium 2.5 H Total Bilirubin 0.6 AST 21 ALT 22 Alkaline Phosphatase 59 Total Protein 6.0 L Albumin 3.2 L TSH (Reflex) 1.600 Random Vancomycin 16.6
--- NOTE | 2024-05-05 12:08 | PM.PNCARD ---
Progress Note: A&P Assessment and Plan (1) New onset a-fib: Code(s): I48.91 - Unspecified atrial fibrillation Status: Acute (2) Hypotension: Code(s): I95.9 - Hypotension, unspecified Status: Acute (3) Atherosclerotic heart disease of [place] coronary artery without angina pectoris: Code(s): I25.10 - Atherosclerotic heart disease of [place] coronary artery without angina pectoris Status: Acute (4) Hypokalemia: Code(s): E87.6 - Hypokalemia Status: Acute Assessment and Plan: Assessment: 1. New onset nonvalvular atrial fibrillation with heart rate at rest in the 90s-100s in the setting of shock secondary to small-bowel obstruction; LVEF 50-55% 2. Hypotension with SBP 80s to 90s requiring Levophed and vasopressin. Vaso now off, norepi at 1. 3. 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 Thrombocytopenia with platelets [id number] 5. Hypokalemia with potassium 3.3 6. Anemia with hemoglobin 10.4 7. Hyperlipidemia 8. DANISHA on CKD (baseline creatinine 1.2 to 1.6)-current creatinine 3.1; secondary to shock, hypotension 9. Shock secondary to small-bowel obstruction- SCAI shock stage C 10. Small bowel obstruction with incarcerated left inguinal hernia status post open incarcerated left inguinal hernia repair with mesh; cultures negative; on broad-spectrum antibiotics; 11. Renal stones- Left kidney stones with a stone in the renal pelvis with chronic severe hydronephrosis and severe kidney atrophy; nonobstructive stones in the right kidney Plan 1. Patient is very sick secondary to shock from small-bowel obstruction and incarcerated left inguinal hernia status post open repair. Pressors are being weaned, remains on low dose norepinephrine. Given hypotension requiring pressor support, unable to use any AV katherine blockers for AFib rate control. Right now his rates are in the 90s to 110s range at rest and he is asymptomatic. Digoxin is not an option given DANISHA on CKD with creatinine of 3. Unable to use amiodarone as it has the potential to chemically cardiovert and this carries risk of stroke in patient not on anticoagulation. Hence monitor on telemetry without further medication at this time 2. He has a Chads Vasc score 2 (age greater than 75). Thus anticoagulation is recommended to reduce risk of stroke. However given recent surgery, we may not be able to start therapeutic anticoagulation until okay per surgery team. 3. Start anticoagulation with heparin when okay from surgical standpoint 4. Check TSH and free T4 5. Trend troponin to peak 6. Check and replace electrolytes as needed keeping potassium greater than 4 and magnesium greater than 2 7. Check renal function daily. Monitor hemoglobin and platelet counts daily 8. Management of other medical and surgical problems per primary and surgical teams respectively 9. Discussed above plan with patient and he is agreeable Cardiology will continue to follow his telemetry. Subjective Date/time seen: 05/05/24 12:08 Interval history: Cardiology follow up visit Patient doing well. No acute events overnight. His SBFT was removed and diet advanced and he is tolerating well so far. Remains in atrial fibrillation with rate controlled on no AV katherine agents or antiarrhythmics. No chest pain, palpitations, shortness of breath. Review of Systems Review of Systems: A complete review of systems was performed and negative other than those mentioned in HPI Exam Const: General: comfortable, no acute distress, alert and awake Orientation/consciousness: patient oriented x3 HENMT: Head: normal to inspection Eyes: General: appearance normal, both eyes and all related structures Pupils: Equal, round and reactive pupils present Neck: Neck: normal visual inspection, supple and no JVD Carotids: normal carotid upstroke Resp: Effort & Inspection: normal respiratory effort Auscultation: clear to auscultation bilaterally and diminished lung sounds Cardio: Rate: regular rate Rhythm: abnormal rhythm irregularly irregular Heart sounds: S1 normal heart sound present, S2 normal heart sound present and no murmurs GI: Auscultation: normal bowel sounds Skin: General skin exam: normal color Neuro: General: patient oriented x3 Cranial nerves: Yes Equal, round and reactive pupils present Extrem: General: normal to inspection Psych: Appearance: grossly normal Mental Status: mental status grossly normal Objective Data Vital Signs Vital Signs: Vital Signs - 24 hr 05/04/24 14:00 05/04/24 14:00 05/04/24 14:00 Temperature 37.5 C Pulse Rate 91 101 H 95 Respiratory Rate 17 Blood Pressure 93/52 L 93/63 L Pulse Oximetry 93 Oxygen Delivery Oxygen Flow Rate Fraction of Inspired Oxygen 05/04/24 14:22 05/04/24 15:52 05/04/24 16:00 Temperature Pulse Rate 92 106 H Respiratory Rate Blood Pressure 91/47 L 91/66 L Pulse Oximetry 93 Oxygen Delivery Room Air Oxygen Flow Rate Fraction of Inspired Oxygen 05/04/24 16:00 05/04/24 16:00 05/04/24 17:00 Temperature 37.5 C Pulse Rate 114 H 109 H 110 H Respiratory Rate 21 H Blood Pressure 111/79 95/59 L Pulse Oximetry 90 Oxygen Delivery Oxygen Flow Rate Fraction of Inspired Oxygen 05/04/24 18:00 05/04/24 18:00 05/04/24 18:00 Temperature 37.7 C H Pulse Rate 103 H 107 H 106 H Respiratory Rate 17 Blood Pressure 112/57 L 107/92 H Pulse Oximetry 91 Oxygen Delivery Oxygen Flow Rate Fraction of Inspired Oxygen 05/04/24 18:30 05/04/24 19:15 05/04/24 20:00 Temperature Pulse Rate 105 H 99 100 Respiratory Rate Blood Pressure 113/60 103/53 L 112/60 Pulse Oximetry Oxygen Delivery Oxygen Flow Rate Fraction of Inspired Oxygen 05/04/24 20:00 05/04/24 20:00 05/04/24 20:00 Temperature 37.5 C Pulse Rate 98 98 Respiratory Rate 17 Blood Pressure 123/65 Pulse Oximetry 91 91 Oxygen Delivery Room Air Oxygen Flow Rate Fraction of Inspired Oxygen 05/04/24 20:15 05/04/24 20:45 05/04/24 21:30 Temperature Pulse Rate 103 H 98 99 Respiratory Rate Blood Pressure 107/56 L 98/52 L 104/56 L Pulse Oximetry Oxygen Delivery Oxygen Flow Rate Fraction of Inspired Oxygen 05/04/24 22:00 05/04/24 22:00 05/04/24 22:30 Temperature 37.3 C Pulse Rate 98 98 100 Respiratory Rate 18 Blood Pressure 116/77 89/62 L Pulse Oximetry 95 Oxygen Delivery Oxygen Flow Rate Fraction of Inspired Oxygen 05/04/24 23:30 05/04/24 23:59 05/05/24 00:00 Temperature Pulse Rate 93 88 Respiratory Rate Blood Pressure 90/80 L 93/66 L Pulse Oximetry 88 L Oxygen Delivery Nasal Cannula Oxygen Flow Rate 2 Fraction of Inspired Oxygen 05/05/24 00:00 05/05/24 00:00 05/05/24 00:00 Temperature 37.2 C Pulse Rate 92 92 87 Respiratory Rate 12 Blood Pressure 89/57 L 89/57 L Pulse Oximetry 90 Oxygen Delivery Oxygen Flow Rate Fraction of Inspired Oxygen 05/05/24 01:00 05/05/24 02:00 05/05/24 02:00 Temperature 37.1 C Pulse Rate 91 91 91 Respiratory Rate 11 L Blood Pressure 108/57 L 102/52 L Pulse Oximetry 98 Oxygen Delivery Oxygen Flow Rate Fraction of Inspired Oxygen 05/05/24 02:00 05/05/24 02:45 05/05/24 03:00 Temperature Pulse Rate 91 86 91 Respiratory Rate Blood Pressure 102/52 L 87/59 L 120/63 Pulse Oximetry Oxygen Delivery Oxygen Flow Rate Fraction of Inspired Oxygen 05/05/24 03:15 05/05/24 03:30 05/05/24 03:43 Temperature Pulse Rate 91 92 85 Respiratory Rate Blood Pressure 113/59 L 116/60 111/58 L Pulse Oximetry Oxygen Delivery Oxygen Flow Rate Fraction of Inspired Oxygen 05/05/24 03:46 05/05/24 04:00 05/05/24 04:00 Temperature 36.9 C Pulse Rate 82 82 Respiratory Rate 12 Blood Pressure 105/53 L Pulse Oximetry 96 96 Oxygen Delivery Nasal Cannula Oxygen Flow Rate 2 Fraction of Inspired Oxygen 05/05/24 04:30 05/05/24 05:24 05/05/24 05:30 Temperature Pulse Rate 89 93 Respiratory Rate Blood Pressure 108/57 L 98/83 L Pulse Oximetry Oxygen Delivery Room Air Oxygen Flow Rate Fraction of Inspired Oxygen 96 05/05/24 06:00 05/05/24 06:00 05/05/24 06:00 Temperature 36.9 C Pulse Rate 90 95 85 Respiratory Rate 17 Blood Pressure 120/62 103/88 Pulse Oximetry 95 Oxygen Delivery Oxygen Flow Rate Fraction of Inspired Oxygen 05/05/24 07:00 05/05/24 08:00 05/05/24 08:00 Temperature 36.9 C Pulse Rate 84 86 87 Respiratory Rate 19 Blood Pressure 81/65 L 114/54 L 86/54 L Pulse Oximetry 93 Oxygen Delivery Oxygen Flow Rate Fraction of Inspired Oxygen 05/05/24 08:00 05/05/24 08:00 05/05/24 10:00 Temperature 37.2 C Pulse Rate 94 87 92 Respiratory Rate 17 12 Blood Pressure 93/68 L Pulse Oximetry 95 92 Oxygen Delivery Room Air Oxygen Flow Rate Fraction of Inspired Oxygen 93 05/05/24 10:00 05/05/24 12:00 Temperature 37.2 C Pulse Rate 108 H 103 H Respiratory Rate 21 H Blood Pressure 130/74 Pulse Oximetry 90 Oxygen Delivery Oxygen Flow Rate Fraction of Inspired Oxygen Intake/Output Intake/Output: Intake & Output 05/02/24 05/03/24 05/04/24 05/05/24 23:59 23:59 23:59 23:59 Intake Total 5214.4 5322.0 1492.6 181.6 Output Total 3645 2270 1857 830 Balance 1569.4 3052.0 -364.4 -648.4 Meds/Results Medications: Active Medications Generic Name Dose Route Start Last Admin Trade Name Freq PRN Reason Stop Dose Admin Acetaminophen 650 mg 05/02/24 20:45 05/02/24 20:40 Acetaminophen Elixir 325 Mg/10.15 Ml Udc FEED TUBE 650 mg Q6H PRN Administration Mild Pain (1-3) or Fever Brimonidine Tartrate 1 drop 05/02/24 14:00 05/05/24 05:08 Brimonidine Tartrate 0.2% Op Soln 5 Ml Btl EACH EYE 1 drop Q8HR EVER Administration Brinzolamide 1 drop 05/02/24 14:00 05/05/24 04:55 Brinzolamide 1% Ophth Susp 10 Ml EACH EYE 1 drop Q8HR EVER Administration Heparin Sodium (Porcine) 5,000 units 05/02/24 14:00 05/05/24 05:07 Heparin Sodium 5,000 Units/Ml Vial SUB-Q 5,000 units Q8HR EVER Administration Hydrocortisone Sodium Succinate 50 mg 05/04/24 18:00 05/05/24 05:08 Hydrocortisone Sodium Succinate 100 Mg/2 Ml Vial IV PUSH 05/05/24 23:59 50 mg Q8HR EVER Administration Cefepime HCl 2 gm in 50 mls @ 100 mls/hr 05/03/24 03:00 05/05/24 03:56 Maxipime 2 Gm/Ns 50 Ml IVPB Infused Q24H EVER Infusion Metronidazole 500 mg in 100 mls @ 100 mls/hr 05/02/24 12:00 05/05/24 05:53 Flagyl 500 Mg/Iso Soln 100 Ml IVPB Infused Q8H EVER Infusion Norepinephrine Bitartrate 8 mg in 250 mls @ 1.875 mls/hr 05/02/24 10:40 05/05/24 07:00 Levophed 8 Mg/D5w 250 Ml IV CONT 0 mcg/min .Q24H EVER 0 mls/hr Titration Protocol 1 MCG/MIN Vasopressin 100 units/ 100 mls @ 0 mls/hr 05/02/24 11:55 05/03/24 08:00 Dextrose IV CONT 0 units/min .Q0M EVER 0 mls/hr Titration Protocol 0 UNITS/MIN Latanoprost 1 drop 05/02/24 21:00 05/04/24 21:19 Latanoprost 0.005% Op Soln 2.5 Ml Btl RIGHT EYE 1 drop HS EVER Administration Morphine Sulfate 2 mg 05/03/24 14:22 Morphine Sulfate (*Crx) 2 Mg/Ml Inj IV PUSH Q2H PRN Breakthrough Pain Rated 4-6 or NPO Morphine Sulfate 4 mg 05/03/24 14:22 Morphine Sulfate (*Crx) 4 Mg/Ml Inj IV PUSH Q2H PRN Breakthrough Pain Rated 7-10 or NPO Naloxone HCl 0.1 mg 05/03/24 14:22 Naloxone Hcl 0.4 Mg/Ml Vial IV PUSH Q2M PRN Opiate Reversal Ondansetron HCl 4 mg 05/02/24 10:09 05/02/24 16:02 Ondansetron Inj 4 Mg/2 Ml Vial IV PUSH 4 mg Q6H PRN Administration Nausea And Vomiting Pantoprazole Sodium 40 mg 05/03/24 09:00 05/05/24 09:03 Pantoprazole Sodium Iv 40 Mg Vial IV PUSH 40 mg QAM EVER Administration Perflutren Lipid Microsphere 0 ml 05/03/24 07:19 Perflutren Lipid Microspheres 1.5 Ml Vial Diluted To 10 Ml Total Volume IV PUSH 05/06/24 07:19 ONCE PRN adequate visualization Protocol Sodium Chloride 10 ml 05/03/24 06:00 05/05/24 05:08 Central Line Flush IV PUSH 10 ml Q8HR EVER Administration Sodium Chloride 20 ml 05/03/24 05:52 Central Line Flush IV PUSH PRN PRN after blood draws Vancomycin HCl 1 each 05/02/24 15:13 Vancomycin For Acute Kidney Injury IVPB PRN PRN Vancomycin Protocol Radiology Results: ITS Impressions Abdomen X-Ray 05/02/24 06:01 Impression: NG tube in satisfactory position. Suspected small bowel obstruction. Renal Ultrasound 05/02/24 15:30 IMPRESSION: 1. Chronic severe left hydronephrosis. Severe left kidney atrophy. 2. Nonobstructing right kidney stone. Abdomen/Pelvis CT 05/02/24 18:09 IMPRESSION: 1. Small bowel obstruction secondary to a left inguinal hernia containing small bowel. 2. Small volume of ascites. 3. Moderate-sized sliding hiatal hernia. 4. Left kidney stones including a stone in the renal pelvis with chronic severe hydronephrosis and severe kidney atrophy. 5. Nonobstructing right kidney stones. Chest X-Ray 05/04/24 06:11 IMPRESSION: 1. Stable airspace opacities in the lower lung zones, consistent with atelectasis versus pneumonia. 2. Cardiomegaly. Labs Labs: Laboratory Results - last 24 hr 05/04/24 05/05/24 14:33 05:07 WBC 12.0 H RBC 3.66 L Hgb 10.4 L Hct 32.0 L MCV 87.4 MCH 28.4 MCHC 32.5 RDW 15.6 H Plt Count 100 L MPV 11.2 H Immature Gran % (Auto) Not Reportable Neut % (Auto) Not Reportable Lymph % (Auto) Not Reportable [place] % (Auto) Not Reportable Eos % (Auto) Not Reportable Baso % (Auto) Not Reportable Lymph # (Auto) Not Reportable [place] # (Auto) Not Reportable Eos # (Auto) Not Reportable Baso # (Auto) Not Reportable Abs Immat Gran (auto) Not Reportable Absolute Neuts (auto) Not Reportable Absolute Nucleated RBC Not Reportable Total Counted 100 Neutrophils % (Manual) 72 Band Neutrophils % 15 H Lymphocytes % (Manual) 6 L Monocytes % (Manual) 7 Nucleated RBC % Not Reportable Abs Neuts (Manual) 10.44 H Abs Lymphs (Manual) 0.72 L Abs Monocytes (Manual) 0.84 Dohle Bodies Present Platelet Estimate Slightly decreased % Immature Plt Fraction 2.6 [place] Cells 1+ Schistocytes None seen Sodium 146 H Potassium 3.3 L Chloride 112 H Carbon Dioxide 27 Anion Gap 7 BUN 77 H Creatinine 3.30 H Estim Creat Clear Calc 19 Estimated GFR 18 L Glucose 107 Calcium 8.4 Phosphorus 3.9 Magnesium 2.5 H Total Bilirubin 0.6 AST 21 ALT 22 Alkaline Phosphatase 59 Total Protein 6.0 L Albumin 3.2 L TSH (Reflex) 1.600 Random Vancomycin 16.6 Quality VTE Prophylaxis VTE prophylaxis: pharmacologic ordered
--- NOTE | 2024-05-05 13:52 | PM.PNNEP ---
Progress Note: A&P Assessment and Plan (1) Acute on chronic renal failure: Code(s): N17.9 - Acute kidney failure, unspecified; N18.9 - Chronic kidney disease, unspecified Status: Acute Assessment and Plan: Dylan has chronic renal insufficiency. He has one chronic obstructed kidney which is contributing very little to the overall function. Thus he is living off of 1 kidney. This would explain his mildly elevated creatinine at baseline. The patient has acute kidney injury as well. Renal ultrasound shows nothing acute in the right kidney. Course shows the chronically obstructed left kidney. Urine electrolytes are pre renal. He has several things that could cause this. contrast hypotension infection/abd process dehydrateion At this point his blood pressures look better but still a bit soft. will add middrine Generally contrast nephropathy is self-limited and this contribution should be improving with time. The patient is on antibiotics so the infectious contribution to this process should be improving as well. He had surgery to help with the hernia/obstruction. will start midodrine check labs tomorrow (2) Atrial fibrillation: Code(s): I48.91 - Unspecified atrial fibrillation Status: Acute Assessment and Plan: Heart rate is 80s to low 100s Anticoagulation per surgery/service (3) SBO (small bowel obstruction): Code(s): K56.609 - Unspecified intestinal obstruction, unspecified as to partial versus complete obstruction Status: Acute Assessment and Plan: He had surgery yesterday. Subjective Date/time seen: 05/05/24 13:52 Interval history: Dylan feels okay he has had several bowel movements this morning. He is passing gas. Blood pressure is still a little bit soft. Review of Systems Cardiovascular: Cardiovascular: Reports no additional cardiovascular complaints Respiratory: Respiratory: Reports no additional respiratory complaints Gastrointestinal: Gastrointestinal: Reports no additional gastrointestinal complaints Genitourinary: Genitourinary: Reports no additional male genitourinary complaints Exam Narrative: WDWN in NAD skin no rash head ncat lungs clear cor reg no rub abd BS+ nontender and soft ext 1+ presacral edema. Objective Data Vital Signs Vital Signs: Vital Signs - 24 hr 05/04/24 14:00 05/04/24 14:00 05/04/24 14:00 Temperature 99.5 F Pulse Rate 91 101 H 95 Respiratory Rate 17 Blood Pressure 93/52 L 93/63 L Pulse Oximetry 93 Oxygen Delivery Oxygen Flow Rate Fraction of Inspired Oxygen 05/04/24 14:22 05/04/24 15:52 05/04/24 16:00 Temperature Pulse Rate 92 106 H Respiratory Rate Blood Pressure 91/47 L 91/66 L Pulse Oximetry 93 Oxygen Delivery Room Air Oxygen Flow Rate Fraction of Inspired Oxygen 05/04/24 16:00 05/04/24 16:00 05/04/24 17:00 Temperature 99.5 F Pulse Rate 114 H 109 H 110 H Respiratory Rate 21 H Blood Pressure 111/79 95/59 L Pulse Oximetry 90 Oxygen Delivery Oxygen Flow Rate Fraction of Inspired Oxygen 05/04/24 18:00 05/04/24 18:00 05/04/24 18:00 Temperature 99.8 F H Pulse Rate 103 H 107 H 106 H Respiratory Rate 17 Blood Pressure 112/57 L 107/92 H Pulse Oximetry 91 Oxygen Delivery Oxygen Flow Rate Fraction of Inspired Oxygen 05/04/24 18:30 05/04/24 19:15 05/04/24 20:00 Temperature Pulse Rate 105 H 99 100 Respiratory Rate Blood Pressure 113/60 103/53 L 112/60 Pulse Oximetry Oxygen Delivery Oxygen Flow Rate Fraction of Inspired Oxygen 05/04/24 20:00 05/04/24 20:00 05/04/24 20:00 Temperature 99.5 F Pulse Rate 98 98 Respiratory Rate 17 Blood Pressure 123/65 Pulse Oximetry 91 91 Oxygen Delivery Room Air Oxygen Flow Rate Fraction of Inspired Oxygen 05/04/24 20:15 05/04/24 20:45 05/04/24 21:30 Temperature Pulse Rate 103 H 98 99 Respiratory Rate Blood Pressure 107/56 L 98/52 L 104/56 L Pulse Oximetry Oxygen Delivery Oxygen Flow Rate Fraction of Inspired Oxygen 05/04/24 22:00 05/04/24 22:00 05/04/24 22:30 Temperature 99.2 F Pulse Rate 98 98 100 Respiratory Rate 18 Blood Pressure 116/77 89/62 L Pulse Oximetry 95 Oxygen Delivery Oxygen Flow Rate Fraction of Inspired Oxygen 05/04/24 23:30 05/04/24 23:59 05/05/24 00:00 Temperature Pulse Rate 93 88 Respiratory Rate Blood Pressure 90/80 L 93/66 L Pulse Oximetry 88 L Oxygen Delivery Nasal Cannula Oxygen Flow Rate 2 Fraction of Inspired Oxygen 05/05/24 00:00 05/05/24 00:00 05/05/24 00:00 Temperature 99.0 F Pulse Rate 92 92 87 Respiratory Rate 12 Blood Pressure 89/57 L 89/57 L Pulse Oximetry 90 Oxygen Delivery Oxygen Flow Rate Fraction of Inspired Oxygen 05/05/24 01:00 05/05/24 02:00 05/05/24 02:00 Temperature 98.7 F Pulse Rate 91 91 91 Respiratory Rate 11 L Blood Pressure 108/57 L 102/52 L Pulse Oximetry 98 Oxygen Delivery Oxygen Flow Rate Fraction of Inspired Oxygen 05/05/24 02:00 05/05/24 02:45 05/05/24 03:00 Temperature Pulse Rate 91 86 91 Respiratory Rate Blood Pressure 102/52 L 87/59 L 120/63 Pulse Oximetry Oxygen Delivery Oxygen Flow Rate Fraction of Inspired Oxygen 05/05/24 03:15 05/05/24 03:30 05/05/24 03:43 Temperature Pulse Rate 91 92 85 Respiratory Rate Blood Pressure 113/59 L 116/60 111/58 L Pulse Oximetry Oxygen Delivery Oxygen Flow Rate Fraction of Inspired Oxygen 05/05/24 03:46 05/05/24 04:00 05/05/24 04:00 Temperature 98.5 F Pulse Rate 82 82 Respiratory Rate 12 Blood Pressure 105/53 L Pulse Oximetry 96 96 Oxygen Delivery Nasal Cannula Oxygen Flow Rate 2 Fraction of Inspired Oxygen 05/05/24 04:30 05/05/24 05:24 05/05/24 05:30 Temperature Pulse Rate 89 93 Respiratory Rate Blood Pressure 108/57 L 98/83 L Pulse Oximetry Oxygen Delivery Room Air Oxygen Flow Rate Fraction of Inspired Oxygen 96 05/05/24 06:00 05/05/24 06:00 05/05/24 06:00 Temperature 98.5 F Pulse Rate 90 95 85 Respiratory Rate 17 Blood Pressure 120/62 103/88 Pulse Oximetry 95 Oxygen Delivery Oxygen Flow Rate Fraction of Inspired Oxygen 05/05/24 07:00 05/05/24 08:00 05/05/24 08:00 Temperature 98.5 F Pulse Rate 84 86 87 Respiratory Rate 19 Blood Pressure 81/65 L 114/54 L 86/54 L Pulse Oximetry 93 Oxygen Delivery Oxygen Flow Rate Fraction of Inspired Oxygen 05/05/24 08:00 05/05/24 08:00 05/05/24 10:00 Temperature 98.9 F Pulse Rate 94 87 92 Respiratory Rate 17 12 Blood Pressure 93/68 L Pulse Oximetry 95 92 Oxygen Delivery Room Air Oxygen Flow Rate Fraction of Inspired Oxygen 05/05/24 10:00 05/05/24 12:00 05/05/24 12:00 Temperature 99.0 F Pulse Rate 108 H 103 H Respiratory Rate 21 H Blood Pressure 130/74 Pulse Oximetry 90 93 Oxygen Delivery Room Air Oxygen Flow Rate Fraction of Inspired Oxygen 05/05/24 12:00 Temperature Pulse Rate Respiratory Rate Blood Pressure 130/74 Pulse Oximetry Oxygen Delivery Oxygen Flow Rate Fraction of Inspired Oxygen Intake/Output Intake/Output: Intake & Output 05/02/24 05/03/24 05/04/24 05/05/24 23:59 23:59 23:59 23:59 Intake Total 5214.4 5322.0 1492.6 181.6 Output Total 3645 2270 1857 830 Balance 1569.4 3052.0 -364.4 -648.4 Meds/Results Medications: Active Medications Generic Name Dose Route Start Last Admin Trade Name Freq PRN Reason Stop Dose Admin Acetaminophen 650 mg 05/02/24 20:45 05/02/24 20:40 Acetaminophen Elixir 325 Mg/10.15 Ml Udc FEED TUBE 650 mg Q6H PRN Administration Mild Pain (1-3) or Fever Brimonidine Tartrate 1 drop 05/02/24 14:00 05/05/24 13:49 Brimonidine Tartrate 0.2% Op Soln 5 Ml Btl EACH EYE 1 drop Q8HR EVER Administration Brinzolamide 1 drop 05/02/24 14:00 05/05/24 13:49 Brinzolamide 1% Ophth Susp 10 Ml EACH EYE 1 drop Q8HR EVER Administration Heparin Sodium (Porcine) 5,000 units 05/02/24 14:00 05/05/24 13:48 Heparin Sodium 5,000 Units/Ml Vial SUB-Q 5,000 units Q8HR EVER Administration Hydrocortisone Sodium Succinate 50 mg 05/04/24 18:00 05/05/24 13:48 Hydrocortisone Sodium Succinate 100 Mg/2 Ml Vial IV PUSH 05/05/24 23:59 50 mg Q8HR EVER Administration Cefepime HCl 2 gm in 50 mls @ 100 mls/hr 05/03/24 03:00 05/05/24 03:56 Maxipime 2 Gm/Ns 50 Ml IVPB Infused Q24H EVER Infusion Metronidazole 500 mg in 100 mls @ 100 mls/hr 05/02/24 12:00 05/05/24 13:48 Flagyl 500 Mg/Iso Soln 100 Ml IVPB 100 mls/hr Q8H EVER Administration Norepinephrine Bitartrate 8 mg in 250 mls @ 1.875 mls/hr 05/02/24 10:40 05/05/24 07:00 Levophed 8 Mg/D5w 250 Ml IV CONT 0 mcg/min .Q24H EVER 0 mls/hr Titration Protocol 1 MCG/MIN Vasopressin 100 units/ 100 mls @ 0 mls/hr 05/02/24 11:55 05/03/24 08:00 Dextrose IV CONT 0 units/min .Q0M EVER 0 mls/hr Titration Protocol 0 UNITS/MIN Latanoprost 1 drop 05/02/24 21:00 05/04/24 21:19 Latanoprost 0.005% Op Soln 2.5 Ml Btl RIGHT EYE 1 drop HS EVER Administration Morphine Sulfate 2 mg 05/03/24 14:22 Morphine Sulfate (*Crx) 2 Mg/Ml Inj IV PUSH Q2H PRN Breakthrough Pain Rated 4-6 or NPO Morphine Sulfate 4 mg 05/03/24 14:22 Morphine Sulfate (*Crx) 4 Mg/Ml Inj IV PUSH Q2H PRN Breakthrough Pain Rated 7-10 or NPO Naloxone HCl 0.1 mg 05/03/24 14:22 Naloxone Hcl 0.4 Mg/Ml Vial IV PUSH Q2M PRN Opiate Reversal Ondansetron HCl 4 mg 05/02/24 10:09 05/02/24 16:02 Ondansetron Inj 4 Mg/2 Ml Vial IV PUSH 4 mg Q6H PRN Administration Nausea And Vomiting Pantoprazole Sodium 40 mg 05/03/24 09:00 05/05/24 09:03 Pantoprazole Sodium Iv 40 Mg Vial IV PUSH 40 mg QAM EVER Administration Perflutren Lipid Microsphere 0 ml 05/03/24 07:19 Perflutren Lipid Microspheres 1.5 Ml Vial Diluted To 10 Ml Total Volume IV PUSH 05/06/24 07:19 ONCE PRN adequate visualization Protocol Sodium Chloride 10 ml 05/03/24 06:00 05/05/24 13:49 Central Line Flush IV PUSH 10 ml Q8HR EVER Administration Sodium Chloride 20 ml 05/03/24 05:52 Central Line Flush IV PUSH PRN PRN after blood draws Vancomycin HCl 1 each 05/02/24 15:13 Vancomycin For Acute Kidney Injury IVPB PRN PRN Vancomycin Protocol Radiology Results: ITS Impressions Abdomen X-Ray 05/02/24 06:01 Impression: NG tube in satisfactory position. Suspected small bowel obstruction. Renal Ultrasound 05/02/24 15:30 IMPRESSION: 1. Chronic severe left hydronephrosis. Severe left kidney atrophy. 2. Nonobstructing right kidney stone. Abdomen/Pelvis CT 05/02/24 18:09 IMPRESSION: 1. Small bowel obstruction secondary to a left inguinal hernia containing small bowel. 2. Small volume of ascites. 3. Moderate-sized sliding hiatal hernia. 4. Left kidney stones including a stone in the renal pelvis with chronic severe hydronephrosis and severe kidney atrophy. 5. Nonobstructing right kidney stones. Chest X-Ray 05/04/24 06:11 IMPRESSION: 1. Stable airspace opacities in the lower lung zones, consistent with atelectasis versus pneumonia. 2. Cardiomegaly. Labs Labs: Laboratory Results - last 24 hr 05/04/24 05/05/24 14:33 05:07 WBC 12.0 H RBC 3.66 L Hgb 10.4 L Hct 32.0 L MCV 87.4 MCH 28.4 MCHC 32.5 RDW 15.6 H Plt Count 100 L MPV 11.2 H Immature Gran % (Auto) Not Reportable Neut % (Auto) Not Reportable Lymph % (Auto) Not Reportable [place] % (Auto) Not Reportable Eos % (Auto) Not Reportable Baso % (Auto) Not Reportable Lymph # (Auto) Not Reportable [place] # (Auto) Not Reportable Eos # (Auto) Not Reportable Baso # (Auto) Not Reportable Abs Immat Gran (auto) Not Reportable Absolute Neuts (auto) Not Reportable Absolute Nucleated RBC Not Reportable Total Counted 100 Neutrophils % (Manual) 72 Band Neutrophils % 15 H Lymphocytes % (Manual) 6 L Monocytes % (Manual) 7 Nucleated RBC % Not Reportable Abs Neuts (Manual) 10.44 H Abs Lymphs (Manual) 0.72 L Abs Monocytes (Manual) 0.84 Dohle Bodies Present Platelet Estimate Slightly decreased % Immature Plt Fraction 2.6 [place] Cells 1+ Schistocytes None seen Sodium 146 H Potassium 3.3 L Chloride 112 H Carbon Dioxide 27 Anion Gap 7 BUN 77 H Creatinine 3.30 H Estim Creat Clear Calc 19 Estimated GFR 18 L Glucose 107 Calcium 8.4 Phosphorus 3.9 Magnesium 2.5 H Total Bilirubin 0.6 AST 21 ALT 22 Alkaline Phosphatase 59 Total Protein 6.0 L Albumin 3.2 L TSH (Reflex) 1.600 Random Vancomycin 16.6
[2024-05-05 17:15] LABS: Vancomycin Random 17.9 ug/mL (10-20)
[2024-05-05] MEDS: MIDODRINE HCL 2.5 MG TABLET 5 MG PO (17:31)
[2024-05-05] MEDS: VANCOMYCIN 1,250 MG/NS 250 ML 1,250 MG/250 ML BAG 166.67 MG IVPB (17:39)
--- NOTE | 2024-05-05 18:21 | P.PNIM_ITS ---
Progress Note: A&P Assessment and Plan (1) Shock: Code(s): R57.9 - Shock, unspecified Status: Acute Assessment and Plan: Patient with septic shock related to incarcerated hernia and SBO Patient was given 3 L fluid resuscitation in ED but remained HoTN. Central line placed and pressors started. Lactic 4.8 -> 1.45 IV abx started after BCx collected. Patient moved to ICU. Levophed started and INDUSTRIAL ENGINEERING DIRECTOR added. Phenylephrine was never started BCx NGTD. General surgery consulted and patient went for surgery 05/03 INDUSTRIAL ENGINEERING DIRECTOR off on 05/03. Levophed weaned off 05/04 but had to be resumed later that day. Levophed weaned off again this morning. Also started on Solu-Cortef and dose already decreased. Will try to wean this off quickly since could impede healing process. WBC higher with bandemia but possibly related to steroids. Appreciate electric golf cart repairers input (2) SBO (small bowel obstruction): Code(s): K56.609 - Unspecified intestinal obstruction, unspecified as to partial versus complete obstruction Status: Acute Assessment and Plan: Patient with SBO related to left inguinal hernia. NGT placed with 1500mL suctioned and placed on LWIS. Hernia was reduced at bedside but with recurrence. Gen Surgery consulted and patient taken for surgery 05/03 POD #2 from open incarcerated left inguinal hernia repair with mesh. There was no signs of bowel ischemia. Patient clinically much better. NGT out. Diet started. Return of bowel fxn Continue routine post-op care. PT/OT started (3) Atrial fibrillation: Code(s): I48.91 - Unspecified atrial fibrillation Status: Acute Assessment and Plan: Patient went into AFib this morning. Rate controlled. [id number] at least 3 (age and HTN) Echo showing EF 50-55%, abnormal diastolic fxn, possible PFO and mild valvular disease. Cardiology consulted. Holding full anticoagulation. Monitor on tele for now. (4) Incarcerated left inguinal hernia: Code(s): K40.30 - Unilateral inguinal hernia, with obstruction, without gangrene, not specified as recurrent Status: Acute Assessment and Plan: As above (5) Acute on chronic renal failure: Code(s): N17.9 - Acute kidney failure, unspecified; N18.9 - Chronic kidney disease, unspecified Status: Acute Assessment and Plan: Baseline Cr 1.5-1.7. Cr 2.5 on admission. DANISHA related to above. Fluid resuscitated. Cr worse at 3.3 with BUN higher at 77 and slowly climbing. UOP stable. UOP: 1225->1200->1350 so far. Monitor renal function, UOP, and electrolytes. (6) Obstructive uropathy: Code(s): N13.9 - Obstructive and reflux uropathy, unspecified Status: Acute Assessment and Plan: CT Abd/Pelvis 05/02 shows multiple nonobstructing right renal stones, markedly enlarged left kidney with marked, severe chronic hydronephrosis and severe diffuse cortical thinning. There is a large, presumably chronically obstructing stone at the left renal pelvis region measuring 3.0 x 2.0 cm in size. Additional smaller nonobstructing left renal stones are also present. Renal US showing chronic severe left hydronephrosis and severe left kidney atrophy UA is not consistent with UTI. Known finding per patient hx. 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 [place] this is an incidental finding and not contributing to his current illness Urology felt the right renal stones should be treated and will arrange for this as outpatient. (7) Rheumatoid arthritis: Qualifiers: Rheumatoid arthritis location: unspecified site Rheumatoid factor presence: unspecified presence Qualified Code(s): M06.9 - Rheumatoid arthritis, unspecified Code(s): M06.9 - Rheumatoid arthritis, unspecified Status: Chronic Assessment and Plan: Hx of RA. No immunosuppressive agents listed. 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 Was on O2 but able to be weaned off Has PFO Trelegy resumed. Follow Plan TCP - Plt count down to 100K range and stable. Monitor. Okay to continue Heparin for now. DVT Prophylaxis - Heparin Code status - Full Subjective Date/time seen: 05/05/24 18:21 Interval history: 83yo male with CKD, RA, psoriasis and BPH here for abdominal pain. Levophed was resumed yesterday afternoon and weaned off again early this morning. Feeling better. NGT out and on clear liquid diet. Having multiple loose stools now. No CP or SOB. No abd pain. Midodrine added for HoTN. Exam Narrative: AF 99.3 128/66 94 19 92% ra Gen - NARD lying almost flat in bed Chest - lungs clear anteriorly and in the flanks. Left subclavian central line in place. CV - irregularly irregular. Tele showing AFib with controlled. rate Abd - soft, much less distended, lower abd dressing clean and dry. Drain in place with serosang fluid in bulb. +BS. - Vann secured draining clear yellow urine Ext - trace pedal edema. Psych - normal mood and affect. Skin - cool and dry. Objective Data Vital Signs Vital Signs: Vital Signs - 24 hr 05/04/24 18:30 05/04/24 19:15 05/04/24 20:00 Temperature Pulse Rate 105 H 99 100 Respiratory Rate Blood Pressure 113/60 103/53 L 112/60 Pulse Oximetry Oxygen Delivery Oxygen Flow Rate Fraction of Inspired Oxygen 05/04/24 20:00 05/04/24 20:00 05/04/24 20:00 Temperature 99.5 F Pulse Rate 98 98 Respiratory Rate 17 Blood Pressure 123/65 Pulse Oximetry 91 91 Oxygen Delivery Room Air Oxygen Flow Rate Fraction of Inspired Oxygen 05/04/24 20:15 05/04/24 20:45 05/04/24 21:30 Temperature Pulse Rate 103 H 98 99 Respiratory Rate Blood Pressure 107/56 L 98/52 L 104/56 L Pulse Oximetry Oxygen Delivery Oxygen Flow Rate Fraction of Inspired Oxygen 05/04/24 22:00 05/04/24 22:00 05/04/24 22:30 Temperature 99.2 F Pulse Rate 98 98 100 Respiratory Rate 18 Blood Pressure 116/77 89/62 L Pulse Oximetry 95 Oxygen Delivery Oxygen Flow Rate Fraction of Inspired Oxygen 05/04/24 23:30 05/04/24 23:59 05/05/24 00:00 Temperature Pulse Rate 93 88 Respiratory Rate Blood Pressure 90/80 L 93/66 L Pulse Oximetry 88 L Oxygen Delivery Nasal Cannula Oxygen Flow Rate 2 Fraction of Inspired Oxygen 05/05/24 00:00 05/05/24 00:00 05/05/24 00:00 Temperature 99.0 F Pulse Rate 92 92 87 Respiratory Rate 12 Blood Pressure 89/57 L 89/57 L Pulse Oximetry 90 Oxygen Delivery Oxygen Flow Rate Fraction of Inspired Oxygen 05/05/24 01:00 05/05/24 02:00 05/05/24 02:00 Temperature 98.7 F Pulse Rate 91 91 91 Respiratory Rate 11 L Blood Pressure 108/57 L 102/52 L Pulse Oximetry 98 Oxygen Delivery Oxygen Flow Rate Fraction of Inspired Oxygen 05/05/24 02:00 05/05/24 02:45 05/05/24 03:00 Temperature Pulse Rate 91 86 91 Respiratory Rate Blood Pressure 102/52 L 87/59 L 120/63 Pulse Oximetry Oxygen Delivery Oxygen Flow Rate Fraction of Inspired Oxygen 05/05/24 03:15 05/05/24 03:30 05/05/24 03:43 Temperature Pulse Rate 91 92 85 Respiratory Rate Blood Pressure 113/59 L 116/60 111/58 L Pulse Oximetry Oxygen Delivery Oxygen Flow Rate Fraction of Inspired Oxygen 05/05/24 03:46 05/05/24 04:00 05/05/24 04:00 Temperature 98.5 F Pulse Rate 82 82 Respiratory Rate 12 Blood Pressure 105/53 L Pulse Oximetry 96 96 Oxygen Delivery Nasal Cannula Oxygen Flow Rate 2 Fraction of Inspired Oxygen 05/05/24 04:30 05/05/24 05:24 05/05/24 05:30 Temperature Pulse Rate 89 93 Respiratory Rate Blood Pressure 108/57 L 98/83 L Pulse Oximetry Oxygen Delivery Room Air Oxygen Flow Rate Fraction of Inspired Oxygen 96 05/05/24 06:00 05/05/24 06:00 05/05/24 06:00 Temperature 98.5 F Pulse Rate 90 95 85 Respiratory Rate 17 Blood Pressure 120/62 103/88 Pulse Oximetry 95 Oxygen Delivery Oxygen Flow Rate Fraction of Inspired Oxygen 05/05/24 07:00 05/05/24 08:00 05/05/24 08:00 Temperature 98.5 F Pulse Rate 84 86 87 Respiratory Rate 19 Blood Pressure 81/65 L 114/54 L 86/54 L Pulse Oximetry 93 Oxygen Delivery Oxygen Flow Rate Fraction of Inspired Oxygen 05/05/24 08:00 05/05/24 08:00 05/05/24 08:00 Temperature Pulse Rate 94 87 92 Respiratory Rate 17 Blood Pressure Pulse Oximetry 95 Oxygen Delivery Room Air Oxygen Flow Rate Fraction of Inspired Oxygen 05/05/24 10:00 05/05/24 10:00 05/05/24 10:00 Temperature 98.9 F Pulse Rate 92 108 H 103 H Respiratory Rate 12 Blood Pressure 93/68 L 93/68 L Pulse Oximetry 92 Oxygen Delivery Oxygen Flow Rate Fraction of Inspired Oxygen 05/05/24 12:00 05/05/24 12:00 05/05/24 12:00 Temperature 99.0 F Pulse Rate 103 H Respiratory Rate 21 H Blood Pressure 130/74 130/74 Pulse Oximetry 90 93 Oxygen Delivery Room Air Oxygen Flow Rate Fraction of Inspired Oxygen 05/05/24 12:00 05/05/24 12:00 05/05/24 14:00 Temperature Pulse Rate 103 H 87 94 Respiratory Rate Blood Pressure 130/74 Pulse Oximetry Oxygen Delivery Oxygen Flow Rate Fraction of Inspired Oxygen 05/05/24 14:00 05/05/24 14:00 05/05/24 16:00 Temperature 99.3 F 99.2 F Pulse Rate 91 84 89 Respiratory Rate 23 H 16 Blood Pressure 127/83 130/97 H Pulse Oximetry 91 94 Oxygen Delivery Oxygen Flow Rate Fraction of Inspired Oxygen 05/05/24 16:00 05/05/24 16:00 05/05/24 16:00 Temperature Pulse Rate 95 93 89 Respiratory Rate Blood Pressure 130/87 Pulse Oximetry 98 Oxygen Delivery Room Air Oxygen Flow Rate Fraction of Inspired Oxygen 05/05/24 17:11 05/05/24 18:00 Temperature 99.3 F Pulse Rate 102 H 94 Respiratory Rate 19 Blood Pressure 128/66 128/66 Pulse Oximetry 92 Oxygen Delivery Oxygen Flow Rate Fraction of Inspired Oxygen Intake/Output Intake/Output: Intake & Output 05/02/24 05/03/24 05/04/24 05/05/24 23:59 23:59 23:59 23:59 Intake Total 5214.4 5322.0 1492.6 381.6 Output Total 3645 2270 1857 1605 Balance 1569.4 3052.0 -364.4 -1223.4 Meds/Results Medications: Active Medications Generic Name Dose Route Start Last Admin Trade Name Freq PRN Reason Stop Dose Admin Acetaminophen 650 mg 05/02/24 20:45 05/02/24 20:40 Acetaminophen Elixir 325 Mg/10.15 Ml Udc FEED TUBE 650 mg Q6H PRN Administration Mild Pain (1-3) or Fever Brimonidine Tartrate 1 drop 05/02/24 14:00 05/05/24 13:49 Brimonidine Tartrate 0.2% Op Soln 5 Ml Btl EACH EYE 1 drop Q8HR EVER Administration Brinzolamide 1 drop 05/02/24 14:00 05/05/24 13:49 Brinzolamide 1% Ophth Susp 10 Ml EACH EYE 1 drop Q8HR EVER Administration Fluticasone/Umeclidinium/Vilanterol 2 puff 05/05/24 20:00 Fluticasone/Umeclidin/Vilanter 100-62.5-25 Mcg Ellipta INHALATION Q12HRT EVER Heparin Sodium (Porcine) 5,000 units 05/02/24 14:00 05/05/24 13:48 Heparin Sodium 5,000 Units/Ml Vial SUB-Q 5,000 units Q8HR EVER Administration Hydrocortisone Sodium Succinate 50 mg 05/04/24 18:00 05/05/24 13:48 Hydrocortisone Sodium Succinate 100 Mg/2 Ml Vial IV PUSH 05/05/24 23:59 50 mg Q8HR EVER Administration Cefepime HCl 2 gm in 50 mls @ 100 mls/hr 05/03/24 03:00 05/05/24 03:56 Maxipime 2 Gm/Ns 50 Ml IVPB Infused Q24H EVER Infusion Metronidazole 500 mg in 100 mls @ 100 mls/hr 05/02/24 12:00 05/05/24 13:48 Flagyl 500 Mg/Iso Soln 100 Ml IVPB 100 mls/hr Q8H EVER Administration Norepinephrine Bitartrate 8 mg in 250 mls @ 1.875 mls/hr 05/02/24 10:40 05/05/24 17:11 Levophed 8 Mg/D5w 250 Ml IV CONT 0 mcg/min .Q24H EVER 0 mls/hr Titration Protocol 1 MCG/MIN Vasopressin 100 units/ 100 mls @ 0 mls/hr 05/02/24 11:55 05/03/24 08:00 Dextrose IV CONT 0 units/min .Q0M EVER 0 mls/hr Titration Protocol 0 UNITS/MIN Vancomycin HCl 1,250 mg in 250 mls @ 166.667 mls/hr 05/05/24 18:00 05/05/24 17:39 Vancomycin 1,250 Mg/Ns 250 Ml IVPB 05/05/24 19:29 166.67 mls/hr ONCE ONE Administration Latanoprost 1 drop 05/02/24 21:00 05/04/24 21:19 Latanoprost 0.005% Op Soln 2.5 Ml Btl RIGHT EYE 1 drop HS EVER Administration Midodrine 5 mg 05/05/24 17:00 05/05/24 17:31 Midodrine Hcl 2.5 Mg Tablet PO 5 mg TID EVER Administration Miscellaneous Information 1 each 05/05/24 00:01 Fluticasone/Umeclidin/Vilanter 100-62.5-25 Mcg Ellipta Clarify Frequency. Usually Only Gi XX 06/04/24 00:00 CLARIFY EVER Morphine Sulfate 2 mg 05/03/24 14:22 Morphine Sulfate (*Crx) 2 Mg/Ml Inj IV PUSH Q2H PRN Breakthrough Pain Rated 4-6 or NPO Morphine Sulfate 4 mg 05/03/24 14:22 Morphine Sulfate (*Crx) 4 Mg/Ml Inj IV PUSH Q2H PRN Breakthrough Pain Rated 7-10 or NPO Naloxone HCl 0.1 mg 05/03/24 14:22 Naloxone Hcl 0.4 Mg/Ml Vial IV PUSH Q2M PRN Opiate Reversal Ondansetron HCl 4 mg 05/02/24 10:09 05/02/24 16:02 Ondansetron Inj 4 Mg/2 Ml Vial IV PUSH 4 mg Q6H PRN Administration Nausea And Vomiting Pantoprazole Sodium 40 mg 05/03/24 09:00 05/05/24 09:03 Pantoprazole Sodium Iv 40 Mg Vial IV PUSH 40 mg QAM EVER Administration Perflutren Lipid Microsphere 0 ml 05/03/24 07:19 Perflutren Lipid Microspheres 1.5 Ml Vial Diluted To 10 Ml Total Volume IV PUSH 05/06/24 07:19 ONCE PRN adequate visualization Protocol Sodium Chloride 10 ml 05/03/24 06:00 05/05/24 13:49 Central Line Flush IV PUSH 10 ml Q8HR EVER Administration Sodium Chloride 20 ml 05/03/24 05:52 Central Line Flush IV PUSH PRN PRN after blood draws Vancomycin HCl 1 each 05/02/24 15:13 Vancomycin For Acute Kidney Injury IVPB PRN PRN Vancomycin Protocol Radiology Results: ITS Impressions Abdomen X-Ray 05/02/24 06:01 Impression: NG tube in satisfactory position. Suspected small bowel obstruction. Renal Ultrasound 05/02/24 15:30 IMPRESSION: 1. Chronic severe left hydronephrosis. Severe left kidney atrophy. 2. Nonobstructing right kidney stone. Abdomen/Pelvis CT 05/02/24 18:09 IMPRESSION: 1. Small bowel obstruction secondary to a left inguinal hernia containing small bowel. 2. Small volume of ascites. 3. Moderate-sized sliding hiatal hernia. 4. Left kidney stones including a stone in the renal pelvis with chronic severe hydronephrosis and severe kidney atrophy. 5. Nonobstructing right kidney stones. Chest X-Ray 05/04/24 06:11 IMPRESSION: 1. Stable airspace opacities in the lower lung zones, consistent with atelectasis versus pneumonia. 2. Cardiomegaly. Labs Labs: Laboratory Results - last 24 hr 05/05/24 05/05/24 05:07 16:50 WBC 12.0 H RBC 3.66 L Hgb 10.4 L Hct 32.0 L MCV 87.4 MCH 28.4 MCHC 32.5 RDW 15.6 H Plt Count 100 L MPV 11.2 H Immature Gran % (Auto) Not Reportable Neut % (Auto) Not Reportable Lymph % (Auto) Not Reportable [place] % (Auto) Not Reportable Eos % (Auto) Not Reportable Baso % (Auto) Not Reportable Lymph # (Auto) Not Reportable [place] # (Auto) Not Reportable Eos # (Auto) Not Reportable Baso # (Auto) Not Reportable Abs Immat Gran (auto) Not Reportable Absolute Neuts (auto) Not Reportable Absolute Nucleated RBC Not Reportable Total Counted 100 Neutrophils % (Manual) 72 Band Neutrophils % 15 H Lymphocytes % (Manual) 6 L Monocytes % (Manual) 7 Nucleated RBC % Not Reportable Abs Neuts (Manual) 10.44 H Abs Lymphs (Manual) 0.72 L Abs Monocytes (Manual) 0.84 Dohle Bodies Present Platelet Estimate Slightly decreased % Immature Plt Fraction 2.6 [place] Cells 1+ Schistocytes None seen Sodium 146 H Potassium 3.3 L Chloride 112 H Carbon Dioxide 27 Anion Gap 7 BUN 77 H Creatinine 3.30 H Estim Creat Clear Calc 19 Estimated GFR 18 L Glucose 107 Calcium 8.4 Phosphorus 3.9 Magnesium 2.5 H Total Bilirubin 0.6 AST 21 ALT 22 Alkaline Phosphatase 59 Total Protein 6.0 L Albumin 3.2 L TSH (Reflex) 1.600 Random Vancomycin 17.9
[2024-05-05] MEDS: LATANOPROST 0.005% OP SOLN 2.5 ML BTL 1 DROP RIGHT EYE (20:26)
[2024-05-06] VITALS (14 sets, daily range): BP systolic 121–147; BP diastolic 79–94; PULSE 73–102; RESP 10–22; TEMP 36.4–37.2; O2SAT 95–98
[2024-05-06] MEDS: CEFEPIME 2 GM/NS 50 ML 2 GM/50 ML BAG IVPB (02:00)
[2024-05-06 02:57] LABS: Toxigenic C. Diff POSITIVE (NEGATIVE)
[2024-05-06] MEDS: metroNIDAZOLE 500 MG/ISO 100ML 500 MG/100 ML BAG 100 MG IVPB ×3 (03:25→20:09)
[2024-05-06 03:30] LABS: Hematocrit 33.6 % (42.0-52.0); Hemoglobin 10.8 g/dL (14.0-18.0); Mean Corpuscular HGB Conc 32.1 g/dl (32-36); Mean Corpuscular Hemoglobin 28.2 pg (26-34); Mean Corpuscular Volume 87.7 fl (80-100); Mean Platelet Volume 10.5 fl (7.4-10.4); Platelet Count Result 102 k/mm3 (150-375); Red Blood Count 3.83 M/mm3 (4.6-6.20); Red Cell Distribution Width 15.8 % (11.5-14.5)
[2024-05-06 03:41] LABS: Alanine Aminotransferase 22 U/L (6-50); Albumin Level 3.2 g/dL (3.5-5.1); Alkaline Phosphatase 60 U/L (38-126); Anion Gap 5 mmol/L (4-12); Aspartate Amino Transferase 19 U/L (17-59); Bilirubin,Total 0.6 mg/dL (0.2-1.3); Blood Urea Nitrogen 74 mg/dL (9-20); Calcium 8.7 mg/dL (8.4-10.2); Carbon Dioxide 26 mmol/L (22-30); Chloride 116 mmol/L (98-107); Estimated CRCL calculation 23 ml/min; Estimated Glomerular Filt Rate 23; Glucose 144 mg/dL (65-110); Magnesium 2.5 mg/dL (1.6-2.3); Phosphorus 3.2 mg/dL (2.5-4.5); Potassium 2.9 mmol/L (3.4-5.0); Sodium 147 mmol/L (137-145)
[2024-05-06 03:50] LABS: Band Neutrophils Percent 7 % (0-6); Lymphocytes Absolute Manual 1.68 K/mm3 (1.1-4.5); Monocytes Absolute Manual 0.72 K/mm3 (0.1-0.90); Monocytes Percent Manual 6 % (3-9); Neutrophils Percent Manual 73 % (46-73); Nucleated Red Blood Cells 1 %; Total Cells Counted 100
[2024-05-06 03:51] LABS: Anisocytosis 1+; Burr Cells 1+; Ovalocytes 1+; Platelet Estimate Decreased (Adequate)
[2024-05-06 03:52] LABS: Schistocytes Rare
[2024-05-06] MEDS: KCL 40 MEQ/WATER 100 ML 100 ML 25 ML IVPB ×2 (04:58→14:36)
[2024-05-06] MEDS: BRINZOLAMIDE 1% OPHTH SUSP 10 ML 1 DROP EACH EYE ×3 (04:59→22:44)
[2024-05-06] MEDS: HEPARIN SODIUM 5,000 UNITS/ML VIAL 5000 UNITS SUB-Q ×3 (05:01→22:44)
[2024-05-06] MEDS: VANCOMYCIN HCL 125 MG ORAL CAPSULE PO ×3 (05:01→18:27)
[2024-05-06] MEDS: CENTRAL LINE FLUSH 10 ML IV PUSH ×3 (05:32→20:17)
[2024-05-06] MEDS: BRIMONIDINE TARTRATE 0.2% OP SOLN 5 ML BTL 1 DROP EACH EYE ×3 (05:32→20:21)
--- NOTE | 2024-05-06 07:17 | P.PNGS_ITS ---
Progress Note: A&P Assessment and Plan (1) Incarcerated left inguinal hernia: Code(s): K40.30 - Unilateral inguinal hernia, with obstruction, without gangrene, not specified as recurrent Status: Acute Assessment and Plan: * Improving on POD#3. * Tolerating clears, advance to full liquids * Monitor drain output * PT/OT ordered (2) C. difficile colitis: Code(s): A04.72 - Enterocolitis due to Clostridium difficile, not specified as recurrent Status: Acute Assessment and Plan: * Oral Vancomycin ordered * Will stop Cefepime and IV Vancomycin as no other infectious sources identified (3) Acute on chronic renal failure: Code(s): N17.9 - Acute kidney failure, unspecified; N18.9 - Chronic kidney disease, unspecified Status: Acute Assessment and Plan: * BUN/Cr slightly improved, continue as per Nephrology. (4) Granulomatous lung disease: Code(s): J84.10 - Pulmonary fibrosis, unspecified Status: Acute (5) Atrial fibrillation: Code(s): I48.91 - Unspecified atrial fibrillation Status: Acute Subjective Subjective Date/Time Seen: 05/06/24 07:17 Interval history: Had about 15 BM's yesterday. Abdomen a little distended this AM. No nausea or vomiting. No fevers. No pain in right groin. Exam Const: General: comfortable and no acute distress GI: Inspection: distended, incision (intact with glue) and other (RAKAN serosanguinous) GI Palp: Yes Soft to palpation, No Tenderness to palpation present (GI) and No Guarding due to palpation present (GI) Auscultation: normal bowel sounds Objective Data Vital Signs Vital Signs: Vital Signs - 24 hr 05/05/24 08:00 05/05/24 08:00 05/05/24 08:00 Temperature 98.5 F Pulse Rate 86 87 94 Respiratory Rate 19 Blood Pressure 114/54 L 86/54 L Pulse Oximetry 93 Oxygen Delivery 05/05/24 08:00 05/05/24 08:00 05/05/24 10:00 Temperature 98.9 F Pulse Rate 87 92 92 Respiratory Rate 17 12 Blood Pressure 93/68 L Pulse Oximetry 95 92 Oxygen Delivery Room Air 05/05/24 10:00 05/05/24 10:00 05/05/24 12:00 Temperature 99.0 F Pulse Rate 108 H 103 H 103 H Respiratory Rate 21 H Blood Pressure 93/68 L 130/74 Pulse Oximetry 90 Oxygen Delivery 05/05/24 12:00 05/05/24 12:00 05/05/24 12:00 Temperature Pulse Rate 103 H Respiratory Rate Blood Pressure 130/74 Pulse Oximetry 93 Oxygen Delivery Room Air 05/05/24 12:00 05/05/24 14:00 05/05/24 14:00 Temperature 99.3 F Pulse Rate 87 94 91 Respiratory Rate 23 H Blood Pressure 130/74 Pulse Oximetry 91 Oxygen Delivery 05/05/24 14:00 05/05/24 16:00 05/05/24 16:00 Temperature 99.2 F Pulse Rate 84 89 95 Respiratory Rate 16 Blood Pressure 127/83 130/97 H Pulse Oximetry 94 98 Oxygen Delivery Room Air 05/05/24 16:00 05/05/24 16:00 05/05/24 17:11 Temperature Pulse Rate 93 89 102 H Respiratory Rate Blood Pressure 130/87 128/66 Pulse Oximetry Oxygen Delivery 05/05/24 18:00 05/05/24 18:00 05/05/24 20:00 Temperature 99.3 F Pulse Rate 94 85 83 Respiratory Rate 19 Blood Pressure 128/66 Pulse Oximetry 92 Oxygen Delivery 05/05/24 20:00 05/05/24 20:00 05/05/24 22:00 Temperature 98.9 F Pulse Rate 83 83 83 Respiratory Rate 13 Blood Pressure 125/80 Pulse Oximetry 94 94 Oxygen Delivery Room Air 05/05/24 22:00 05/05/24 23:19 05/06/24 00:00 Temperature 98.8 F 97.9 F Pulse Rate 83 77 82 Respiratory Rate 13 15 Blood Pressure 123/93 H 134/86 Pulse Oximetry 95 93 95 Oxygen Delivery Room Air 05/06/24 00:00 05/06/24 02:00 05/06/24 04:00 Temperature Pulse Rate 81 82 78 Respiratory Rate Blood Pressure Pulse Oximetry 95 Oxygen Delivery Room Air 05/06/24 04:00 05/06/24 04:00 05/06/24 06:00 Temperature 97.6 F Pulse Rate 87 87 91 Respiratory Rate 10 L Blood Pressure 136/94 H Pulse Oximetry 95 Oxygen Delivery Intake/Output Intake/Output: Intake & Output 05/03/24 05/04/24 05/05/24 05/06/24 23:59 23:59 23:59 23:59 Intake Total 5322.0 1492.6 1081.6 900 Output Total 8510 2287 1605 910 Balance 3052.0 -364.4 -523.4 -10 Meds/Results Medications: Active Medications Generic Name Dose Route Start Last Admin Trade Name Freq PRN Reason Stop Dose Admin Acetaminophen 650 mg 05/02/24 20:45 05/02/24 20:40 Acetaminophen Elixir 325 Mg/10.15 Ml Udc FEED TUBE 650 mg Q6H PRN Administration Mild Pain (1-3) or Fever Brimonidine Tartrate 1 drop 05/02/24 14:00 05/06/24 05:32 Brimonidine Tartrate 0.2% Op Soln 5 Ml Btl EACH EYE 1 drop Q8HR EVER Administration Brinzolamide 1 drop 05/02/24 14:00 05/06/24 04:59 Brinzolamide 1% Ophth Susp 10 Ml EACH EYE 1 drop Q8HR EVER Administration Fluticasone/Umeclidinium/Vilanterol 1 puff 05/06/24 08:00 Fluticasone/Umeclidin/Vilanter 100-62.5-25 Mcg Ellipta INHALATION DAILYRT EVER Heparin Sodium (Porcine) 5,000 units 05/02/24 14:00 05/06/24 05:01 Heparin Sodium 5,000 Units/Ml Vial SUB-Q 5,000 units Q8HR EVER Administration Metronidazole 500 mg in 100 mls @ 100 mls/hr 05/02/24 12:00 05/06/24 04:25 Flagyl 500 Mg/Iso Soln 100 Ml IVPB Infused Q8H EVER Infusion Potassium Chloride 100 mls @ 25 mls/hr 05/06/24 04:18 05/06/24 04:58 Kcl 40 Meq/Water 100 Ml IVPB 05/06/24 08:17 25 mls/hr ONCE ONE Administration Latanoprost 1 drop 05/02/24 21:00 05/05/24 20:26 Latanoprost 0.005% Op Soln 2.5 Ml Btl RIGHT EYE 1 drop HS EVER Administration Midodrine 5 mg 05/05/24 17:00 05/05/24 17:31 Midodrine Hcl 2.5 Mg Tablet PO 5 mg TID EVER Administration Morphine Sulfate 2 mg 05/03/24 14:22 Morphine Sulfate (*Crx) 2 Mg/Ml Inj IV PUSH Q2H PRN Breakthrough Pain Rated 4-6 or NPO Morphine Sulfate 4 mg 05/03/24 14:22 Morphine Sulfate (*Crx) 4 Mg/Ml Inj IV PUSH Q2H PRN Breakthrough Pain Rated 7-10 or NPO Naloxone HCl 0.1 mg 05/03/24 14:22 Naloxone Hcl 0.4 Mg/Ml Vial IV PUSH Q2M PRN Opiate Reversal Ondansetron HCl 4 mg 05/02/24 10:09 05/02/24 16:02 Ondansetron Inj 4 Mg/2 Ml Vial IV PUSH 4 mg Q6H PRN Administration Nausea And Vomiting Pantoprazole Sodium 40 mg 05/03/24 09:00 05/05/24 09:03 Pantoprazole Sodium Iv 40 Mg Vial IV PUSH 40 mg QAM EVER Administration Perflutren Lipid Microsphere 0 ml 05/03/24 07:19 Perflutren Lipid Microspheres 1.5 Ml Vial Diluted To 10 Ml Total Volume IV PUSH 05/06/24 07:19 ONCE PRN adequate visualization Protocol Sodium Chloride 10 ml 05/03/24 06:00 05/06/24 05:32 Central Line Flush IV PUSH 10 ml Q8HR EVER Administration Sodium Chloride 20 ml 05/03/24 05:52 Central Line Flush IV PUSH PRN PRN after blood draws Vancomycin HCl 125 mg 05/06/24 06:00 05/06/24 05:01 Vancomycin Hcl 125 Mg Oral Capsule PO 125 mg Q6HR EVER Administration Radiology Results: ITS Impressions Abdomen X-Ray 05/02/24 06:01 Impression: NG tube in satisfactory position. Suspected small bowel obstruction. Renal Ultrasound 05/02/24 15:30 IMPRESSION: 1. Chronic severe left hydronephrosis. Severe left kidney atrophy. 2. Nonobstructing right kidney stone. Abdomen/Pelvis CT 05/02/24 18:09 IMPRESSION: 1. Small bowel obstruction secondary to a left inguinal hernia containing small bowel. 2. Small volume of ascites. 3. Moderate-sized sliding hiatal hernia. 4. Left kidney stones including a stone in the renal pelvis with chronic severe hydronephrosis and severe kidney atrophy. 5. Nonobstructing right kidney stones. Chest X-Ray 05/04/24 06:11 IMPRESSION: 1. Stable airspace opacities in the lower lung zones, consistent with atelectasis versus pneumonia. 2. Cardiomegaly. Labs Labs: Laboratory Results - last 24 hr 05/05/24 05/06/24 05/06/24 16:50 01:55 03:23 WBC 12.0 H RBC 3.83 L Hgb 10.8 L Hct 33.6 L MCV 87.7 MCH 28.2 MCHC 32.1 RDW 15.8 H Plt Count 102 L MPV 10.5 H Immature Gran % (Auto) Not Reportable Neut % (Auto) Not Reportable Lymph % (Auto) Not Reportable [place] % (Auto) Not Reportable Eos % (Auto) Not Reportable Baso % (Auto) Not Reportable Lymph # (Auto) Not Reportable [place] # (Auto) Not Reportable Eos # (Auto) Not Reportable Baso # (Auto) Not Reportable Abs Immat Gran (auto) Not Reportable Absolute Neuts (auto) Not Reportable Absolute Nucleated RBC Not Reportable Total Counted 100 Neutrophils % (Manual) 73 Band Neutrophils % 7 H Lymphocytes % (Manual) 14.0 L Monocytes % (Manual) 6 Nucleated RBC % Not Reportable Abs Neuts (Manual) 9.60 H Abs Lymphs (Manual) 1.68 Abs Monocytes (Manual) 0.72 Nucleated RBCs 1 Platelet Estimate Decreased Anisocytosis 1+ Ovalocytes 1+ [place] Cells 1+ Schistocytes Rare Sodium 147 H Potassium 2.9 L Chloride 116 H Carbon Dioxide 26 Anion Gap 5 BUN 74 H Creatinine 2.70 H Estim Creat Clear Calc 23 Estimated GFR 23 L Glucose 144 H Calcium 8.7 Phosphorus 3.2 Magnesium 2.5 H Total Bilirubin 0.6 AST 19 ALT 22 Alkaline Phosphatase 60 Total Protein 6.0 L Albumin 3.2 L Random Vancomycin 17.9 C. difficile (PCR) Positive A*
[2024-05-06] MEDS: FLUTICASONE/UMECLIDIN/VILANTER 100-62.5-25 MCG ELLIPTA 1 PUFF INHALATION (07:35)
[2024-05-06] MEDS: PANTOPRAZOLE SODIUM IV 40 MG VIAL IV PUSH (08:07)
[2024-05-06] MEDS: MIDODRINE HCL 2.5 MG TABLET 5 MG PO ×3 (08:07→16:36)
--- NOTE | 2024-05-06 09:21 | PM.PNNEP ---
Progress Note: A&P Assessment and Plan (1) Acute on chronic renal failure: Code(s): N17.9 - Acute kidney failure, unspecified; N18.9 - Chronic kidney disease, unspecified Status: Acute Assessment and Plan: Dylan has chronic renal insufficiency. He has one chronic obstructed kidney which is contributing very little to the overall function. Thus he is living off of 1 kidney. This would explain his mildly elevated creatinine at baseline. The patient has acute kidney injury as well. Renal ultrasound shows nothing acute in the right kidney. Course shows the chronically obstructed left kidney. Urine electrolytes are pre renal. He has several things that could cause this. contrast hypotension infection/abd process dehydrateion At this point his blood pressures look better but still a bit soft. will add middrine Generally contrast nephropathy is self-limited and this contribution should be improving with time. The patient is on antibiotics so the infectious contribution to this process should be improving as well. He had surgery to help with the hernia/obstruction. On midodrine Blood Pressure is better Creatinine is better Sodium level is higher. This is probably from the diarrhea Will give a little bit of D5W (2) Atrial fibrillation: Code(s): I48.91 - Unspecified atrial fibrillation Status: Acute Assessment and Plan: Heart rate is 80s to low 100s Anticoagulation per surgery/service (3) SBO (small bowel obstruction): Code(s): K56.609 - Unspecified intestinal obstruction, unspecified as to partial versus complete obstruction Status: Acute Assessment and Plan: He had surgery yesterday. (4) C. difficile colitis: Code(s): A04.72 - Enterocolitis due to Clostridium difficile, not specified as recurrent Status: Acute Assessment and Plan: Now on oral vancomycin (5) Hypernatremia: Code(s): E87.0 - Hyperosmolality and hypernatremia Status: Acute Assessment and Plan: Sodium a little high due to free water loss. Will give some D5W Subjective Date/time seen: 05/06/24 09:21 Interval history: Patient feels pretty good. However he did have many many stools yesterday. Stools were checked and the patient has C diff. He denies any belly pain. He was a little short of breath last night. He is getting inhaler Exam Narrative: WDWN in NAD skin no rash head ncat lungs clear mild increase in expiratory phase cor reg no rub abd BS+ nontender and soft but a little bit distended ext 1+ presacral edema. Objective Data Vital Signs Vital Signs: Vital Signs - 24 hr 05/05/24 10:00 05/05/24 10:00 05/05/24 10:00 Temperature 98.9 F Pulse Rate 92 108 H 103 H Respiratory Rate 12 Blood Pressure 93/68 L 93/68 L Pulse Oximetry 92 Oxygen Delivery 05/05/24 12:00 05/05/24 12:00 05/05/24 12:00 Temperature 99.0 F Pulse Rate 103 H Respiratory Rate 21 H Blood Pressure 130/74 130/74 Pulse Oximetry 90 93 Oxygen Delivery Room Air 05/05/24 12:00 05/05/24 12:00 05/05/24 14:00 Temperature Pulse Rate 103 H 87 94 Respiratory Rate Blood Pressure 130/74 Pulse Oximetry Oxygen Delivery 05/05/24 14:00 05/05/24 14:00 05/05/24 16:00 Temperature 99.3 F 99.2 F Pulse Rate 91 84 89 Respiratory Rate 23 H 16 Blood Pressure 127/83 130/97 H Pulse Oximetry 91 94 Oxygen Delivery 05/05/24 16:00 05/05/24 16:00 05/05/24 16:00 Temperature Pulse Rate 95 93 89 Respiratory Rate Blood Pressure 130/87 Pulse Oximetry 98 Oxygen Delivery Room Air 05/05/24 17:11 05/05/24 18:00 05/05/24 18:00 Temperature 99.3 F Pulse Rate 102 H 94 85 Respiratory Rate 19 Blood Pressure 128/66 128/66 Pulse Oximetry 92 Oxygen Delivery 05/05/24 20:00 05/05/24 20:00 05/05/24 20:00 Temperature 98.9 F Pulse Rate 83 83 83 Respiratory Rate 13 Blood Pressure 125/80 Pulse Oximetry 94 94 Oxygen Delivery Room Air 05/05/24 22:00 05/05/24 22:00 05/05/24 23:19 Temperature 98.8 F Pulse Rate 83 83 77 Respiratory Rate 13 Blood Pressure 123/93 H Pulse Oximetry 95 93 Oxygen Delivery Room Air 05/06/24 00:00 05/06/24 00:00 05/06/24 02:00 Temperature 97.9 F Pulse Rate 82 81 82 Respiratory Rate 15 Blood Pressure 134/86 Pulse Oximetry 95 Oxygen Delivery 05/06/24 04:00 05/06/24 04:00 05/06/24 04:00 Temperature 97.6 F Pulse Rate 78 87 87 Respiratory Rate 10 L Blood Pressure 136/94 H Pulse Oximetry 95 95 Oxygen Delivery Room Air 05/06/24 06:00 05/06/24 07:35 Temperature Pulse Rate 91 102 H Respiratory Rate 18 Blood Pressure Pulse Oximetry 95 Oxygen Delivery Room Air Intake/Output Intake/Output: Intake & Output 05/03/24 05/04/24 05/05/24 05/06/24 23:59 23:59 23:59 23:59 Intake Total 5322.0 1492.6 1081.6 900 Output Total 2270 1857 1605 910 Balance 3052.0 -364.4 -523.4 -10 Meds/Results Medications: Active Medications Generic Name Dose Route Start Last Admin Trade Name Freq PRN Reason Stop Dose Admin Acetaminophen 650 mg 05/02/24 20:45 05/02/24 20:40 Acetaminophen Elixir 325 Mg/10.15 Ml Udc FEED TUBE 650 mg Q6H PRN Administration Mild Pain (1-3) or Fever Brimonidine Tartrate 1 drop 05/02/24 14:00 05/06/24 05:32 Brimonidine Tartrate 0.2% Op Soln 5 Ml Btl EACH EYE 1 drop Q8HR EVER Administration Brinzolamide 1 drop 05/02/24 14:00 05/06/24 04:59 Brinzolamide 1% Ophth Susp 10 Ml EACH EYE 1 drop Q8HR EVER Administration Fluticasone/Umeclidinium/Vilanterol 1 puff 05/06/24 08:00 05/06/24 07:35 Fluticasone/Umeclidin/Vilanter 100-62.5-25 Mcg Ellipta INHALATION 1 puff DAILYRT EVER Administration Heparin Sodium (Porcine) 5,000 units 05/02/24 14:00 05/06/24 05:01 Heparin Sodium 5,000 Units/Ml Vial SUB-Q 5,000 units Q8HR EVER Administration Metronidazole 500 mg in 100 mls @ 100 mls/hr 05/02/24 12:00 05/06/24 04:25 Flagyl 500 Mg/Iso Soln 100 Ml IVPB Infused Q8H EVER Infusion Latanoprost 1 drop 05/02/24 21:00 05/05/24 20:26 Latanoprost 0.005% Op Soln 2.5 Ml Btl RIGHT EYE 1 drop HS EVER Administration Midodrine 5 mg 05/05/24 17:00 05/06/24 08:07 Midodrine Hcl 2.5 Mg Tablet PO 5 mg TID EVER Administration Morphine Sulfate 2 mg 05/03/24 14:22 Morphine Sulfate (*Crx) 2 Mg/Ml Inj IV PUSH Q2H PRN Breakthrough Pain Rated 4-6 or NPO Morphine Sulfate 4 mg 05/03/24 14:22 Morphine Sulfate (*Crx) 4 Mg/Ml Inj IV PUSH Q2H PRN Breakthrough Pain Rated 7-10 or NPO Naloxone HCl 0.1 mg 05/03/24 14:22 Naloxone Hcl 0.4 Mg/Ml Vial IV PUSH Q2M PRN Opiate Reversal Ondansetron HCl 4 mg 05/02/24 10:09 05/02/24 16:02 Ondansetron Inj 4 Mg/2 Ml Vial IV PUSH 4 mg Q6H PRN Administration Nausea And Vomiting Pantoprazole Sodium 40 mg 05/03/24 09:00 05/06/24 08:07 Pantoprazole Sodium Iv 40 Mg Vial IV PUSH 40 mg QAM EVER Administration Sodium Chloride 10 ml 05/03/24 06:00 05/06/24 05:32 Central Line Flush IV PUSH 10 ml Q8HR EVER Administration Sodium Chloride 20 ml 05/03/24 05:52 Central Line Flush IV PUSH PRN PRN after blood draws Vancomycin HCl 125 mg 05/06/24 06:00 05/06/24 05:01 Vancomycin Hcl 125 Mg Oral Capsule PO 125 mg Q6HR EVER Administration Radiology Results: ITS Impressions Abdomen X-Ray 05/02/24 06:01 Impression: NG tube in satisfactory position. Suspected small bowel obstruction. Renal Ultrasound 05/02/24 15:30 IMPRESSION: 1. Chronic severe left hydronephrosis. Severe left kidney atrophy. 2. Nonobstructing right kidney stone. Abdomen/Pelvis CT 05/02/24 18:09 IMPRESSION: 1. Small bowel obstruction secondary to a left inguinal hernia containing small bowel. 2. Small volume of ascites. 3. Moderate-sized sliding hiatal hernia. 4. Left kidney stones including a stone in the renal pelvis with chronic severe hydronephrosis and severe kidney atrophy. 5. Nonobstructing right kidney stones. Chest X-Ray 05/04/24 06:11 IMPRESSION: 1. Stable airspace opacities in the lower lung zones, consistent with atelectasis versus pneumonia. 2. Cardiomegaly. Labs Labs: Laboratory Results - last 24 hr 05/05/24 05/06/24 05/06/24 16:50 01:55 03:23 WBC 12.0 H RBC 3.83 L Hgb 10.8 L Hct 33.6 L MCV 87.7 MCH 28.2 MCHC 32.1 RDW 15.8 H Plt Count 102 L MPV 10.5 H Immature Gran % (Auto) Not Reportable Neut % (Auto) Not Reportable Lymph % (Auto) Not Reportable [place] % (Auto) Not Reportable Eos % (Auto) Not Reportable Baso % (Auto) Not Reportable Lymph # (Auto) Not Reportable [place] # (Auto) Not Reportable Eos # (Auto) Not Reportable Baso # (Auto) Not Reportable Abs Immat Gran (auto) Not Reportable Absolute Neuts (auto) Not Reportable Absolute Nucleated RBC Not Reportable Total Counted 100 Neutrophils % (Manual) 73 Band Neutrophils % 7 H Lymphocytes % (Manual) 14.0 L Monocytes % (Manual) 6 Nucleated RBC % Not Reportable Abs Neuts (Manual) 9.60 H Abs Lymphs (Manual) 1.68 Abs Monocytes (Manual) 0.72 Nucleated RBCs 1 Platelet Estimate Decreased Anisocytosis 1+ Ovalocytes 1+ [place] Cells 1+ Schistocytes Rare Sodium 147 H Potassium 2.9 L Chloride 116 H Carbon Dioxide 26 Anion Gap 5 BUN 74 H Creatinine 2.70 H Estim Creat Clear Calc 23 Estimated GFR 23 L Glucose 144 H Calcium 8.7 Phosphorus 3.2 Magnesium 2.5 H Total Bilirubin 0.6 AST 19 ALT 22 Alkaline Phosphatase 60 Total Protein 6.0 L Albumin 3.2 L Random Vancomycin 17.9 C. difficile (PCR) Positive A*
[2024-05-06] MEDS: DEXTROSE 5% 1,000 ML 1,000 ML 100 ML IV CONT (11:30)
[2024-05-06 12:01] LABS: Anion Gap 6 mmol/L (4-12); Blood Urea Nitrogen 69 mg/dL (9-20); Calcium 8.8 mg/dL (8.4-10.2); Carbon Dioxide 23 mmol/L (22-30); Chloride 115 mmol/L (98-107); Estimated CRCL calculation 23 ml/min; Estimated Glomerular Filt Rate 26; Glucose 137 mg/dL (65-110); Sodium 144 mmol/L (137-145)
--- NOTE | 2024-05-06 13:48 | PC.NURSE ---
Notified Dr Wright of Potassium of 3.0. Received order for another Potassium 40meq IV. Order read back and verified
[2024-05-06 14:09] LABS: IFOB Positive Control Positive; Immunochemical Fecal Occult Bl Positive (N)
--- NOTE | 2024-05-06 17:01 | PM.IMPN ---
Progress Note: A&P Assessment and Plan (1) Shock: Code(s): R57.9 - Shock, unspecified Status: Acute Assessment and Plan: Patient with septic shock related to incarcerated hernia and SBO Patient was given 3 L fluid resuscitation in ED but remained HoTN. Central line placed and pressors started. Lactic 4.8 -> 1.45 IV abx started after BCx collected. Patient moved to ICU. Levophed started and [employer] added. Phenylephrine was never started BCx NGTD. General surgery consulted and patient went for surgery 05/03 [employer] off on 05/03. Levophed weaned off 05/05. Solu-Cortef stopped 05/05 Off all abx except Flagyl now. Oral Vanco started fo CDiff. WBC higher with bandemia but possibly related to steroids and/or Cdiff. Bandemia better BP remaining stable. Shock resolved (2) C. difficile colitis: Code(s): A04.72 - Enterocolitis due to Clostridium difficile, not specified as recurrent Status: Acute Assessment and Plan: Patient having increased amount of stool output. CDiff toxin positive. Oral Vanco started Monitor stool output. Stop Flagyl when okay with surgery (3) Hypokalemia: Code(s): E87.6 - Hypokalemia Status: Acute Assessment and Plan: Potassium low again this morning at 2.9 and replacement ordered. Repeat potasium still low so potassium replaced again. Mag 2.5. Keep central line for potasium rider today but remove tomorrow. Follow and replace (4) SBO (small bowel obstruction): Code(s): K56.609 - Unspecified intestinal obstruction, unspecified as to partial versus complete obstruction Status: Acute Assessment and Plan: Patient with SBO related to left inguinal hernia. NGT placed with 1500mL suctioned and placed on LWIS. Hernia was reduced at bedside but with recurrence. Gen Surgery consulted and patient taken for surgery 05/03 POD #3 from open incarcerated left inguinal hernia repair with mesh. There was no signs of bowel ischemia. Patient clinically much better. NGT out. Diet started. Return of bowel fxn Continue routine post-op care. PT/OT started (5) Atrial fibrillation: Code(s): I48.91 - Unspecified atrial fibrillation Status: Acute Assessment and Plan: Patient went into AFib 05/03. Rate controlled. [id number] at least 3 (age and HTN) Echo showing EF 50-55%, abnormal diastolic fxn, possible PFO and mild valvular disease. Cardiology consulted. Holding full anticoagulation. Monitor on tele for now. (6) Incarcerated left inguinal hernia: Code(s): K40.30 - Unilateral inguinal hernia, with obstruction, without gangrene, not specified as recurrent Status: Acute Assessment and Plan: As above (7) Acute on chronic renal failure: Code(s): N17.9 - Acute kidney failure, unspecified; N18.9 - Chronic kidney disease, unspecified Status: Acute Assessment and Plan: Baseline Cr 1.5-1.7. Cr 2.5 on admission and peaked at 3.3. DANISHA related to above. Fluid resuscitated. Cr better at 2.3 Good UOP Monitor renal function, UOP, and electrolytes. (8) Obstructive uropathy: Code(s): N13.9 - Obstructive and reflux uropathy, unspecified Status: Acute Assessment and Plan: CT Abd/Pelvis 05/02 shows multiple nonobstructing right renal stones, markedly enlarged left kidney with marked, severe chronic hydronephrosis and severe diffuse cortical thinning. There is a large, presumably chronically obstructing stone at the left renal pelvis region measuring 3.0 x 2.0 cm in size. Additional smaller nonobstructing left renal stones are also present. Renal US showing chronic severe left hydronephrosis and severe left kidney atrophy UA is not consistent with UTI. Known finding per patient hx. 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 [place] this is an incidental finding and not contributing to his current illness Urology felt the right renal stones should be treated and will arrange for this as outpatient. (9) Rheumatoid arthritis: Qualifiers: Rheumatoid arthritis location: unspecified site Rheumatoid factor presence: unspecified presence Qualified Code(s): M06.9 - Rheumatoid arthritis, unspecified Code(s): M06.9 - Rheumatoid arthritis, unspecified Status: Chronic Assessment and Plan: Hx of RA. No immunosuppressive agents listed. 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 Was on O2 but able to be weaned off Has PFO Breztri resumed. Follow Plan TCP - Plt count down to 100K range and stable. Monitor. Continue Heparin for now. DVT Prophylaxis - Heparin Code status - Full Subjective Date/time seen: 05/06/24 17:01 Interval history: 83yo male with CKD, RA, psoriasis and BPH here for abdominal pain. More SOB today. No CP. On a liquid diet and being advanced. Was having more liquid stools and now positive for CDiff. Exam Narrative: AF 98.7 121/79 83 15 96% ra Gen - NARD Chest - decreased BS in the bases. . Left subclavian central line in place. CV - irregularly irregular. Tele showing AFib with controlled rate and PVCs Abd - soft, mildly distended, lower abd dressing clean and dry. No rebound. Drain in place with serosang fluid in bulb. +BS. - Vann secured draining clear yellow urine Ext - trace pedal edema. Psych - normal mood and affect. Skin - warm and dry. Objective Data Vital Signs Vital Signs: Vital Signs - 24 hr 05/05/24 17:11 05/05/24 18:00 05/05/24 18:00 Temperature 99.3 F Pulse Rate 102 H 94 85 Respiratory Rate 19 Blood Pressure 128/66 128/66 Pulse Oximetry 92 Oxygen Delivery 05/05/24 20:00 05/05/24 20:00 05/05/24 20:00 Temperature 98.9 F Pulse Rate 83 83 83 Respiratory Rate 13 Blood Pressure 125/80 Pulse Oximetry 94 94 Oxygen Delivery Room Air 05/05/24 22:00 05/05/24 22:00 05/05/24 23:19 Temperature 98.8 F Pulse Rate 83 83 77 Respiratory Rate 13 Blood Pressure 123/93 H Pulse Oximetry 95 93 Oxygen Delivery Room Air 05/06/24 00:00 05/06/24 00:00 05/06/24 02:00 Temperature 97.9 F Pulse Rate 82 81 82 Respiratory Rate 15 Blood Pressure 134/86 Pulse Oximetry 95 Oxygen Delivery 05/06/24 04:00 05/06/24 04:00 05/06/24 04:00 Temperature 97.6 F Pulse Rate 78 87 87 Respiratory Rate 10 L Blood Pressure 136/94 H Pulse Oximetry 95 95 Oxygen Delivery Room Air 05/06/24 06:00 05/06/24 07:35 05/06/24 08:00 Temperature Pulse Rate 91 102 H 74 Respiratory Rate 18 Blood Pressure Pulse Oximetry 95 95 Oxygen Delivery Room Air Room Air 05/06/24 08:00 05/06/24 08:00 05/06/24 10:00 Temperature 98.3 F Pulse Rate 87 87 89 Respiratory Rate 22 H 17 Blood Pressure 136/90 132/91 H Pulse Oximetry 95 98 Oxygen Delivery 05/06/24 10:00 05/06/24 10:58 05/06/24 12:00 Temperature Pulse Rate 89 73 Respiratory Rate Blood Pressure Pulse Oximetry 97 Oxygen Delivery Room Air Room Air 05/06/24 12:00 05/06/24 12:00 05/06/24 13:33 Temperature 98.9 F Pulse Rate 94 90 Respiratory Rate 15 Blood Pressure 126/91 H Pulse Oximetry 98 Oxygen Delivery Room Air 05/06/24 14:00 05/06/24 16:00 05/06/24 16:00 Temperature 98.7 F Pulse Rate 86 83 73 Respiratory Rate 15 Blood Pressure 121/79 Pulse Oximetry 96 96 Oxygen Delivery Room Air 05/06/24 16:00 Temperature Pulse Rate 83 Respiratory Rate Blood Pressure Pulse Oximetry Oxygen Delivery Intake/Output Intake/Output: Intake & Output 05/03/24 05/04/24 05/05/24 05/06/24 23:59 23:59 23:59 23:59 Intake Total 5322.0 1492.6 1081.6 1600 Output Total 2270 1857 1605 910 Balance 3052.0 -364.4 -523.4 690 Meds/Results Medications: Active Medications Generic Name Dose Route Start Last Admin Trade Name Freq PRN Reason Stop Dose Admin Acetaminophen 650 mg 05/02/24 20:45 05/02/24 20:40 Acetaminophen Elixir 325 Mg/10.15 Ml Udc FEED TUBE 650 mg Q6H PRN Administration Mild Pain (1-3) or Fever Brimonidine Tartrate 1 drop 05/02/24 14:00 05/06/24 14:36 Brimonidine Tartrate 0.2% Op Soln 5 Ml Btl EACH EYE 1 drop Q8HR EVER Administration Brinzolamide 1 drop 05/02/24 14:00 05/06/24 14:36 Brinzolamide 1% Ophth Susp 10 Ml EACH EYE 1 drop Q8HR EVER Administration Fluticasone/Umeclidinium/Vilanterol 1 puff 05/06/24 08:00 05/06/24 07:35 Fluticasone/Umeclidin/Vilanter 100-62.5-25 Mcg Ellipta INHALATION 1 puff DAILYRT EVER Administration Heparin Sodium (Porcine) 5,000 units 05/02/24 14:00 05/06/24 14:36 Heparin Sodium 5,000 Units/Ml Vial SUB-Q 5,000 units Q8HR EVER Administration Metronidazole 500 mg in 100 mls @ 100 mls/hr 05/02/24 12:00 05/06/24 13:23 Flagyl 500 Mg/Iso Soln 100 Ml IVPB Infused Q8H EVER Infusion Potassium Chloride 100 mls @ 25 mls/hr 05/06/24 14:00 05/06/24 14:36 Kcl 40 Meq/Water 100 Ml IVPB 05/06/24 17:59 25 mls/hr ONCE ONE Administration Latanoprost 1 drop 05/02/24 21:00 05/05/24 20:26 Latanoprost 0.005% Op Soln 2.5 Ml Btl RIGHT EYE 1 drop HS EVER Administration Midodrine 5 mg 05/05/24 17:00 05/06/24 16:36 Midodrine Hcl 2.5 Mg Tablet PO 5 mg TID EVER Administration Morphine Sulfate 2 mg 05/03/24 14:22 Morphine Sulfate (*Crx) 2 Mg/Ml Inj IV PUSH Q2H PRN Breakthrough Pain Rated 4-6 or NPO Morphine Sulfate 4 mg 05/03/24 14:22 Morphine Sulfate (*Crx) 4 Mg/Ml Inj IV PUSH Q2H PRN Breakthrough Pain Rated 7-10 or NPO Naloxone HCl 0.1 mg 05/03/24 14:22 Naloxone Hcl 0.4 Mg/Ml Vial IV PUSH Q2M PRN Opiate Reversal Ondansetron HCl 4 mg 05/02/24 10:09 05/02/24 16:02 Ondansetron Inj 4 Mg/2 Ml Vial IV PUSH 4 mg Q6H PRN Administration Nausea And Vomiting Pantoprazole Sodium 40 mg 05/03/24 09:00 05/06/24 08:07 Pantoprazole Sodium Iv 40 Mg Vial IV PUSH 40 mg QAM EVER Administration Sodium Chloride 10 ml 05/03/24 06:00 05/06/24 14:37 Central Line Flush IV PUSH 10 ml Q8HR EVER Administration Sodium Chloride 20 ml 05/03/24 05:52 Central Line Flush IV PUSH PRN PRN after blood draws Vancomycin HCl 125 mg 05/06/24 06:00 05/06/24 11:31 Vancomycin Hcl 125 Mg Oral Capsule PO 125 mg Q6HR EVER Administration Radiology Results: ITS Impressions Abdomen X-Ray 05/02/24 06:01 Impression: NG tube in satisfactory position. Suspected small bowel obstruction. Renal Ultrasound 05/02/24 15:30 IMPRESSION: 1. Chronic severe left hydronephrosis. Severe left kidney atrophy. 2. Nonobstructing right kidney stone. Abdomen/Pelvis CT 05/02/24 18:09 IMPRESSION: 1. Small bowel obstruction secondary to a left inguinal hernia containing small bowel. 2. Small volume of ascites. 3. Moderate-sized sliding hiatal hernia. 4. Left kidney stones including a stone in the renal pelvis with chronic severe hydronephrosis and severe kidney atrophy. 5. Nonobstructing right kidney stones. Chest X-Ray 05/04/24 06:11 IMPRESSION: 1. Stable airspace opacities in the lower lung zones, consistent with atelectasis versus pneumonia. 2. Cardiomegaly. Labs Labs: Laboratory Results - last 24 hr 05/05/24 05/06/24 05/06/24 16:50 01:55 03:23 WBC 12.0 H RBC 3.83 L Hgb 10.8 L Hct 33.6 L MCV 87.7 MCH 28.2 MCHC 32.1 RDW 15.8 H Plt Count 102 L MPV 10.5 H Immature Gran % (Auto) Not Reportable Neut % (Auto) Not Reportable Lymph % (Auto) Not Reportable [place] % (Auto) Not Reportable Eos % (Auto) Not Reportable Baso % (Auto) Not Reportable Lymph # (Auto) Not Reportable [place] # (Auto) Not Reportable Eos # (Auto) Not Reportable Baso # (Auto) Not Reportable Abs Immat Gran (auto) Not Reportable Absolute Neuts (auto) Not Reportable Absolute Nucleated RBC Not Reportable Total Counted 100 Neutrophils % (Manual) 73 Band Neutrophils % 7 H Lymphocytes % (Manual) 14.0 L Monocytes % (Manual) 6 Nucleated RBC % Not Reportable Abs Neuts (Manual) 9.60 H Abs Lymphs (Manual) 1.68 Abs Monocytes (Manual) 0.72 Nucleated RBCs 1 Platelet Estimate Decreased Anisocytosis 1+ Ovalocytes 1+ [place] Cells 1+ Schistocytes Rare Sodium 147 H Potassium 2.9 L Chloride 116 H Carbon Dioxide 26 Anion Gap 5 BUN 74 H Creatinine 2.70 H Estim Creat Clear Calc 23 Estimated GFR 23 L Glucose 144 H Calcium 8.7 Phosphorus 3.2 Magnesium 2.5 H Total Bilirubin 0.6 AST 19 ALT 22 Alkaline Phosphatase 60 Total Protein 6.0 L Albumin 3.2 L Stl Occult Blood (IFOB) Random Vancomycin 17.9 C. difficile (PCR) Positive A* 05/06/24 05/06/24 10:01 11:44 WBC RBC Hgb Hct MCV MCH MCHC RDW Plt Count MPV Immature Gran % (Auto) Neut % (Auto) Lymph % (Auto) [place] % (Auto) Eos % (Auto) Baso % (Auto) Lymph # (Auto) [place] # (Auto) Eos # (Auto) Baso # (Auto) Abs Immat Gran (auto) Absolute Neuts (auto) Absolute Nucleated RBC Total Counted Neutrophils % (Manual) Band Neutrophils % Lymphocytes % (Manual) Monocytes % (Manual) Nucleated RBC % Abs Neuts (Manual) Abs Lymphs (Manual) Abs Monocytes (Manual) Nucleated RBCs Platelet Estimate Anisocytosis Ovalocytes [place] Cells Schistocytes Sodium 144 Potassium 3.0 L Chloride 115 H Carbon Dioxide 23 Anion Gap 6 BUN 69 H Creatinine 2.40 H Estim Creat Clear Calc 23 Estimated GFR 26 L Glucose 137 H Calcium 8.8 Phosphorus Magnesium Total Bilirubin AST ALT Alkaline Phosphatase Total Protein Albumin Stl Occult Blood (IFOB) Positive H Random Vancomycin C. difficile (PCR)
[2024-05-06 17:10] LABS: Anion Gap 6 mmol/L (4-12); Blood Urea Nitrogen 64 mg/dL (9-20); Calcium 8.5 mg/dL (8.4-10.2); Carbon Dioxide 23 mmol/L (22-30); Chloride 112 mmol/L (98-107); Estimated CRCL calculation 24 ml/min; Estimated Glomerular Filt Rate 27; Glucose 162 mg/dL (65-110); Sodium 141 mmol/L (137-145)
--- NOTE | 2024-05-06 17:29 | PHAR ---
Pharmacy verified home med: * Home med * ([facility]) budes/glycopyr/formot 160 mcg-9 mcg-4.8 mcg inhale 2 puffs into the lungs twice daily - rinse mouth and spit after use
--- NOTE | 2024-05-06 17:58 | PC.NURSE ---
Notified Dr Greene of latest BMP. PT current potassium almost completely infused. Received order for 20meq of potassium IV. order read back and verified.
[2024-05-06] MEDS: KCL 20 MEQ/SW 100 ML 100 ML 50 MEQ IVPB (18:27)
[2024-05-06] MEDS: FORMOTEROL INHALATION (20:12)
[2024-05-06] MEDS: GLYCOPYRROLATE INHALATION (20:12)
[2024-05-06] MEDS: BUDESONIDE INHALATION (20:12)
[2024-05-06] MEDS: MAGNESIUM OXIDE 200 MG TABLET PO (20:14)
[2024-05-06] MEDS: TAMSULOSIN HCL 0.4 MG CAPSULE PO (20:15)
[2024-05-06] MEDS: LATANOPROST 0.005% OP SOLN 2.5 ML BTL 1 DROP RIGHT EYE (20:16)
[2024-05-07] VITALS (16 sets, daily range): BP systolic 99–134; BP diastolic 64–81; PULSE 82–119; RESP 12–24; TEMP 36.6–37.2; O2SAT 95–100
[2024-05-07] MEDS: VANCOMYCIN HCL 125 MG ORAL CAPSULE PO ×5 (00:58→22:37)
[2024-05-07] MEDS: BRINZOLAMIDE 1% OPHTH SUSP 10 ML 1 DROP EACH EYE ×3 (03:52→22:37)
[2024-05-07] MEDS: metroNIDAZOLE 500 MG/ISO 100ML 500 MG/100 ML BAG 100 MG IVPB ×3 (03:52→20:34)
[2024-05-07] MEDS: CENTRAL LINE FLUSH 10 ML IV PUSH ×3 (04:00→22:37)
[2024-05-07 04:16] LABS: Hematocrit 33.8 % (42.0-52.0); Hemoglobin 10.9 g/dL (14.0-18.0); Immature Platelet Fraction Pct 2.8 % (0.9-11.2); Mean Corpuscular HGB Conc 32.2 g/dl (32-36); Mean Corpuscular Hemoglobin 28.1 pg (26-34); Mean Corpuscular Volume 87.1 fl (80-100); Mean Platelet Volume 11.3 fl (7.4-10.4); Platelet Count Result 95 k/mm3 (150-375); Red Blood Count 3.88 M/mm3 (4.6-6.20); Red Cell Distribution Width 15.9 % (11.5-14.5); White Blood Count 10.2 K/mm3 (4.5-10.0)
[2024-05-07 04:26] LABS: Albumin Level 2.9 g/dL (3.5-5.1); Anion Gap 5 mmol/L (4-12); Blood Urea Nitrogen 59 mg/dL (9-20); Calcium 8.3 mg/dL (8.4-10.2); Carbon Dioxide 24 mmol/L (22-30); Chloride 113 mmol/L (98-107); Estimated CRCL calculation 27 ml/min; Estimated Glomerular Filt Rate 32; Glucose 105 mg/dL (65-110); Magnesium 2.1 mg/dL (1.6-2.3); Phosphorus 2.5 mg/dL (2.5-4.5); Potassium 3.1 mmol/L (3.4-5.0); Sodium 142 mmol/L (137-145)
[2024-05-07 04:54] LABS: Band Neutrophils Percent 4 % (0-6); Lymphocytes Absolute Manual 0.91 K/mm3 (1.1-4.5); Monocytes Percent Manual 3 % (3-9); Neutrophils Absolute Manual 8.97 K/mm3 (1.3-6.7); Neutrophils Percent Manual 84 % (46-73); Platelet Estimate Adequate (Adequate); Total Cells Counted 100
[2024-05-07 04:55] LABS: Anisocytosis 1+; Burr Cells 2+; Ovalocytes 1+; Schistocytes None Seen
[2024-05-07] MEDS: BRIMONIDINE TARTRATE 0.2% OP SOLN 5 ML BTL 1 DROP EACH EYE ×3 (06:41→22:37)
--- NOTE | 2024-05-07 07:34 | P.PNNP_ITS ---
Progress Note: A&P Assessment and Plan (1) Acute on chronic renal failure: Code(s): N17.9 - Acute kidney failure, unspecified; N18.9 - Chronic kidney disease, unspecified Status: Acute Assessment and Plan: Dylan has chronic renal insufficiency. He has one chronic obstructed kidney which is contributing very little to the overall function. Thus he is living off of 1 kidney. This would explain his mildly elevated creatinine at baseline. Baseline creatinine is 1.4-1.6 The patient has acute kidney injury as well. Renal ultrasound shows nothing acute in the right kidney. Course shows the chronically obstructed left kidney. Urine electrolytes are pre renal. He has several things that could cause this. contrast hypotension infection/abd process dehydration His blood pressure is doing well with the midodrine. The patient is on antibiotics so the infectious contribution to this process should be improving as well. He had surgery to help with the hernia/obstruction. Creatinine is better The patient has C diff. As a consequence, the sodium was high and potassium was low. This is probably from the diarrhea He received some D5W in the sodium is better. Supplementing potassium as we go (2) Atrial fibrillation: Code(s): I48.91 - Unspecified atrial fibrillation Status: Acute Assessment and Plan: Heart rate is 80s to low 100s Anticoagulation per surgery/service (3) SBO (small bowel obstruction): Code(s): K56.609 - Unspecified intestinal obstruction, unspecified as to partial versus complete obstruction Status: Acute Assessment and Plan: He had surgery a few days ago (4) C. difficile colitis: Code(s): A04.72 - Enterocolitis due to Clostridium difficile, not specified as recurrent Status: Acute Assessment and Plan: Now on oral vancomycin Still has liquid stools (5) Hypernatremia: Code(s): E87.0 - Hyperosmolality and hypernatremia Status: Acute Assessment and Plan: Sodium level back to normal today Subjective Date/time seen: 05/07/24 07:34 Interval history: Patient feels pretty good this morning. He still having liquid stools. An FMS is in place Exam Narrative: WDWN in NAD skin no rash or subQ nodules head ncat lungs clear mild increase in expiratory phase cor reg no rub or gallop abd BS+ nontender and soft but a little bit distended ext 1+ presacral edema. No cyanosis Objective Data Vital Signs Vital Signs: Vital Signs - 24 hr 05/06/24 07:35 05/06/24 08:00 05/06/24 08:00 Temperature Pulse Rate 102 H 74 87 Respiratory Rate 18 Blood Pressure Pulse Oximetry 95 95 Oxygen Delivery Room Air Room Air 05/06/24 08:00 05/06/24 10:00 05/06/24 10:00 Temperature 98.3 F Pulse Rate 87 89 89 Respiratory Rate 22 H 17 Blood Pressure 136/90 132/91 H Pulse Oximetry 95 98 Oxygen Delivery 05/06/24 10:58 05/06/24 12:00 05/06/24 12:00 Temperature Pulse Rate 73 94 Respiratory Rate Blood Pressure Pulse Oximetry 97 Oxygen Delivery Room Air Room Air 05/06/24 12:00 05/06/24 13:33 05/06/24 14:00 Temperature 98.9 F Pulse Rate 90 86 Respiratory Rate 15 Blood Pressure 126/91 H Pulse Oximetry 98 Oxygen Delivery Room Air 05/06/24 16:00 05/06/24 16:00 05/06/24 16:00 Temperature 98.7 F Pulse Rate 83 73 83 Respiratory Rate 15 Blood Pressure 121/79 Pulse Oximetry 96 96 Oxygen Delivery Room Air 05/06/24 18:00 05/06/24 20:00 05/06/24 20:00 Temperature Pulse Rate 78 86 86 Respiratory Rate Blood Pressure Pulse Oximetry 97 Oxygen Delivery Room Air 05/06/24 20:08 05/06/24 22:00 05/07/24 00:00 Temperature 98.7 F Pulse Rate 85 82 87 Respiratory Rate 16 Blood Pressure 147/91 H Pulse Oximetry 97 Oxygen Delivery 05/07/24 00:00 05/07/24 00:00 05/07/24 02:00 Temperature 98.7 F Pulse Rate 87 85 Respiratory Rate 12 Blood Pressure 99/73 L Pulse Oximetry 97 97 Oxygen Delivery Room Air 05/07/24 04:00 05/07/24 04:00 05/07/24 04:00 Temperature 98.7 F Pulse Rate 85 82 Respiratory Rate 14 Blood Pressure 123/74 Pulse Oximetry 98 95 Oxygen Delivery Room Air 05/07/24 06:00 Temperature Pulse Rate 90 Respiratory Rate Blood Pressure Pulse Oximetry Oxygen Delivery Intake/Output Intake/Output: Intake & Output 05/04/24 05/05/24 05/06/24 12/25/24 23:59 23:59 23:59 23:59 Intake Total 1492.6 1081.6 2688.3 900 Output Total 1857 1605 2180 1020 Balance -364.4 -523.4 508.3 -120 Meds/Results Medications: Active Medications Generic Name Dose Route Start Last Admin Trade Name Freq PRN Reason Stop Dose Admin Acetaminophen 650 mg 05/02/24 20:45 05/02/24 20:40 Acetaminophen Elixir 325 Mg/10.15 Ml Udc FEED TUBE 650 mg Q6H PRN Administration Mild Pain (1-3) or Fever Artificial Tears 1 drop 05/07/24 18:00 Artificial Tears Ophth Soln 15 Ml Bottle EACH EYE TID EVER Ascorbic Acid 1,000 mg 05/07/24 09:00 Ascorbic Acid 500 Mg Tablet PO DAILY EVER Atorvastatin Calcium 40 mg 05/07/24 09:00 Atorvastatin 40 Mg Tablet PO QAM EVER Brimonidine Tartrate 1 drop 05/02/24 14:00 05/07/24 06:41 Brimonidine Tartrate 0.2% Op Soln 5 Ml Btl EACH EYE 1 drop Q8HR EVER Administration Brinzolamide 1 drop 05/02/24 14:00 05/07/24 03:52 Brinzolamide 1% Ophth Susp 10 Ml EACH EYE 1 drop Q8HR EVER Administration Cyanocobalamin 1,000 mcg 05/07/24 09:00 Cyanocobalamin 1,000 Mcg Tablet PO DAILY EVER Fluticasone Propionate 1 spray 05/06/24 17:24 Fluticasone Propionate 0.05% Na Spr 16 Gm Btl (*Bkc) NASAL HS PRN nasal congestion Folic Acid 0.8 mg 05/07/24 09:00 Folic Acid 0.4 Mg Tablet PO QAM EVER Metronidazole 500 mg in 100 mls @ 100 mls/hr 05/02/24 12:00 05/07/24 04:52 Flagyl 500 Mg/Iso Soln 100 Ml IVPB Infused Q8H EVER Infusion Latanoprost 1 drop 05/02/24 21:00 05/06/24 20:16 Latanoprost 0.005% Op Soln 2.5 Ml Btl RIGHT EYE 1 drop HS EVER Administration Magnesium Oxide 200 mg 05/06/24 21:00 05/06/24 20:14 Magnesium Oxide 200 Mg Tablet PO 200 mg HS EVER Administration Midodrine 5 mg 05/05/24 17:00 05/06/24 16:36 Midodrine Hcl 2.5 Mg Tablet PO 5 mg TID EVER Administration Morphine Sulfate 2 mg 05/03/24 14:22 Morphine Sulfate (*Crx) 2 Mg/Ml Inj IV PUSH Q2H PRN Breakthrough Pain Rated 4-6 or NPO Morphine Sulfate 4 mg 05/03/24 14:22 Morphine Sulfate (*Crx) 4 Mg/Ml Inj IV PUSH Q2H PRN Breakthrough Pain Rated 7-10 or NPO Naloxone HCl 0.1 mg 05/03/24 14:22 Naloxone Hcl 0.4 Mg/Ml Vial IV PUSH Q2M PRN Opiate Reversal * Home Med * ( 2 each 05/06/24 20:00 05/06/24 20:12 Breztri Aerosphere) INHALATION 06/05/24 19:59 2 each Budes/Glycopyr/ Q12HRT EVER Administration Formot 160 Mcg-9 Mcg -4.8 Mcg Ondansetron HCl 4 mg 05/02/24 10:09 05/02/24 16:02 Ondansetron Inj 4 Mg/2 Ml Vial IV PUSH 4 mg Q6H PRN Administration Nausea And Vomiting Pantoprazole Sodium 40 mg 05/03/24 09:00 05/06/24 08:07 Pantoprazole Sodium Iv 40 Mg Vial IV PUSH 40 mg QAM EVER Administration Sodium Chloride 10 ml 05/03/24 06:00 05/07/24 04:00 Central Line Flush IV PUSH 10 ml Q8HR EVER Administration Sodium Chloride 20 ml 05/03/24 05:52 Central Line Flush IV PUSH PRN PRN after blood draws Tamsulosin HCl 0.4 mg 05/06/24 21:00 05/06/24 20:15 Tamsulosin Hcl 0.4 Mg Capsule PO 0.4 mg QHS EVER Administration Vancomycin HCl 125 mg 05/06/24 06:00 05/07/24 06:41 Vancomycin Hcl 125 Mg Oral Capsule PO 125 mg Q6HR EVER Administration Radiology Results: ITS Impressions Abdomen X-Ray 05/02/24 06:01 Impression: NG tube in satisfactory position. Suspected small bowel obstruction. Renal Ultrasound 05/02/24 15:30 IMPRESSION: 1. Chronic severe left hydronephrosis. Severe left kidney atrophy. 2. Nonobstructing right kidney stone. Abdomen/Pelvis CT 05/02/24 18:09 IMPRESSION: 1. Small bowel obstruction secondary to a left inguinal hernia containing small bowel. 2. Small volume of ascites. 3. Moderate-sized sliding hiatal hernia. 4. Left kidney stones including a stone in the renal pelvis with chronic severe hydronephrosis and severe kidney atrophy. 5. Nonobstructing right kidney stones. Chest X-Ray 05/06/24 19:38 IMPRESSION: Left basilar consolidation with small bilateral pleural effusions. Labs Labs: Laboratory Results - last 24 hr 05/06/24 05/06/24 05/06/24 10:01 11:44 16:49 WBC RBC Hgb Hct MCV MCH MCHC RDW Plt Count MPV Immature Gran % (Auto) Neut % (Auto) Lymph % (Auto) [place] % (Auto) Eos % (Auto) Baso % (Auto) Lymph # (Auto) [place] # (Auto) Eos # (Auto) Baso # (Auto) Abs Immat Gran (auto) Absolute Neuts (auto) Absolute Nucleated RBC Total Counted Neutrophils % (Manual) Band Neutrophils % Lymphocytes % (Manual) Monocytes % (Manual) Nucleated RBC % Abs Neuts (Manual) Abs Lymphs (Manual) Abs Monocytes (Manual) Platelet Estimate % Immature Plt Fraction Anisocytosis Ovalocytes [place] Cells Schistocytes Sodium 144 141 Potassium 3.0 L 3.0 L Chloride 115 H 112 H Carbon Dioxide 23 23 Anion Gap 6 6 BUN 69 H 64 H Creatinine 2.40 H 2.30 H Estim Creat Clear Calc 23 24 Estimated GFR 26 L 27 L Glucose 137 H 162 H Calcium 8.8 8.5 Phosphorus Magnesium Albumin Stl Occult Blood (IFOB) Positive H 05/07/24 04:08 WBC 10.2 H RBC 3.88 L Hgb 10.9 L Hct 33.8 L MCV 87.1 MCH 28.1 MCHC 32.2 RDW 15.9 H Plt Count 95 L MPV 11.3 H Immature Gran % (Auto) Not Reportable Neut % (Auto) Not Reportable Lymph % (Auto) Not Reportable [place] % (Auto) Not Reportable Eos % (Auto) Not Reportable Baso % (Auto) Not Reportable Lymph # (Auto) Not Reportable [place] # (Auto) Not Reportable Eos # (Auto) Not Reportable Baso # (Auto) Not Reportable Abs Immat Gran (auto) Not Reportable Absolute Neuts (auto) Not Reportable Absolute Nucleated RBC Not Reportable Total Counted 100 Neutrophils % (Manual) 84 H Band Neutrophils % 4 Lymphocytes % (Manual) 9.0 L Monocytes % (Manual) 3 Nucleated RBC % Not Reportable Abs Neuts (Manual) 8.97 H Abs Lymphs (Manual) 0.91 L Abs Monocytes (Manual) 0.30 Platelet Estimate Adequate % Immature Plt Fraction 2.8 Anisocytosis 1+ Ovalocytes 1+ [place] Cells 2+ Schistocytes None seen Sodium 142 Potassium 3.1 L Chloride 113 H Carbon Dioxide 24 Anion Gap 5 BUN 59 H Creatinine 2.00 H Estim Creat Clear Calc 27 Estimated GFR 32 L Glucose 105 Calcium 8.3 L Phosphorus 2.5 Magnesium 2.1 Albumin 2.9 L Stl Occult Blood (IFOB)
[2024-05-07] MEDS: FORMOTEROL INHALATION ×2 (07:49→18:51)
[2024-05-07] MEDS: GLYCOPYRROLATE INHALATION ×2 (07:49→18:51)
[2024-05-07] MEDS: BUDESONIDE INHALATION ×2 (07:49→18:51)
--- NOTE | 2024-05-07 07:52 | P.PNIM_ITS ---
Progress Note: A&P Assessment and Plan (1) Shock: Code(s): R57.9 - Shock, unspecified Status: Acute Assessment and Plan: * Patient initially presented with septic shock related to incarcerated hernia and SBO * Patient was given 3 L fluid resuscitation in ED but remained HoTN. Central line placed and pressors started. * Lactic 4.8 -> 1.45 * Was on Cefepime, Flagyl and Vancomycin initially--now on oral Vancomycin and Flagyl for C-diff. * Was in ICU on vasopressors that were weaned off on the . * Blood cultures showing no growth to date on preliminary read * WBC continues to trend down, 10.2 (2) C. difficile colitis: Code(s): A04.72 - Enterocolitis due to Clostridium difficile, not specified as recurrent Status: Acute Assessment and Plan: * Continue oral vanc and Flagyl (3) Hypokalemia: Code(s): E87.6 - Hypokalemia Status: Acute Assessment and Plan: * Potassium 3.1 * 40 mEq of potassium given (4) SBO (small bowel obstruction): Code(s): K56.609 - Unspecified intestinal obstruction, unspecified as to partial versus complete obstruction Status: Acute Assessment and Plan: * S/P open incarcerated left inguinal hernia repair with mesh, no bowel ischemia noted * NGT discontinued on the , advancing diet-- currently on full liquid diet * General surgery following * Continue pain and nausea control * Patient having BM's * Continue PT and OT (5) Atrial fibrillation: Code(s): I48.91 - Unspecified atrial fibrillation Status: Acute Assessment and Plan: * Patient went into AFib 05/03. Rate controlled. * Echo showing EF 50-55%, abnormal diastolic fxn, possible PFO and mild valvular disease. * Cardiology following * Monitor on tele for now. (6) Incarcerated left inguinal hernia: Code(s): K40.30 - Unilateral inguinal hernia, with obstruction, without gangrene, not specified as recurrent Status: Acute Assessment and Plan: As above (7) Acute on chronic renal failure: Code(s): N17.9 - Acute kidney failure, unspecified; N18.9 - Chronic kidney disease, unspecified Status: Acute Assessment and Plan: * Creatinine 2.0, continuing to trend down * Nephrology following * Avoid nephrotoxic medication or testing with IV contrast * Continue fluid restriction * Will remove beasley today (8) Obstructive uropathy: Code(s): N13.9 - Obstructive and reflux uropathy, unspecified Status: Acute Assessment and Plan: * CT Abd/Pelvis 05/02 shows multiple nonobstructing right renal stones, markedly enlarged left kidney with marked, severe chronic hydronephrosis and severe diffuse cortical thinning. There is a large, presumably chronically obstructin g stone at the left renal pelvis region measuring 3.0 x 2.0 cm in size. Additional smaller nonobstructing left renal stones are also present. * Renal US showing chronic severe left hydronephrosis and severe left kidney atrophy * UA is not consistent with UTI. * Known finding per patient hx. 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 * [place] this is an incidental finding and not contributing to his current illness * Urology felt the right renal stones should be treated and will arrange for this as outpatient. 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 Abdomen/pelvis CT showed small bowel obstruction with transition point related to left inguinal hernia which contains a loop of small bowel as well as ascitic fluid, severe chronic obstructive uropathy of the left kidney with enlargement of the left kidney, severe hydronephrosis and severe diffuse cortical thinning. NG tube was placed while in the ED and an abdominal x-ray showed NG tube in satisfactory position. Renal ultrasound showed chronic severe left hydronephrosis, severe left kidney atrophy, nonobstructing right kidney stone. Initial labs showed a white blood cell count of 5.0 bicarb 15, anion gap 16, creatinine 2.50, EGFR 25, lactic acid 4.8> 1.4. UA showed cloudy urine appearance, 1+ protein, trace leukocytes otherwise negative. MRSA was negative. Blood cultures were obtained and currently showing no growth to date on preliminary read. Patient was initially admitted to ICU with septic shock requiring vasopressors. General surgery was consulted and manually reduced the left inguinal hernia and monitored overnight. Patient ended up going to the OR on 05/03/2024 for an open incarcerated left inguinal hernia repair with mesh as that hernia incarcerated again overnight. No signs of bowel ischemia found. Nephrology was consulted for DANISHA. Patient was weaned off Levophed on 05/05/24. Patient also started having bowel movements, NG tube was removed, and patient started on clear liquid diet. He was then downgraded out of ICU status. He was on IV antibiotics Cefepime, vancomycin and Flagyl for duration of his stay and then was found to have C diff. He is now currently on Flagyl and Vancomycin. Subjective: Patient denies any fever, chills, nausea, vomiting, diarrhea, abdominal pain, chest pain, shortness of breath.Beasley was removed today. Labs reviewed. Review of Systems Review of Systems: All systems reviewed & are unremarkable except as noted in HPI and below Exam Narrative: General: In no acute distress, well nourished Head: atraumatic, no encephalopathy Eyes: PERRLA, sclera clear ENT: moist mucous membranes, nasal passages clear Neck: supple, no JVD, no adenopathy, trachea midline Cardiac: Normal S1 and S2. RRR, No murmur, gallops or friction rubs, peripheral pulses intact. Respiratory: Lungs clear to auscultation, no adventitious lung sounds, currently on room air Gastrointestinal: soft, non-distended, non-tender, normoactive bowel sounds. Fecal management system in place : voiding without difficulty. Extremities: moves all extremities well, no edema, good ROM, strength 5/5 Skin: clean, dry, intact. No wounds or lesions. Neuro: Alert and oriented x4, cranial nerves intact, no neuro deficits. Psych: normal mood, normal affect, interactive Objective Data Vital Signs Vital Signs: Vital Signs - 24 hr 05/06/24 08:00 05/06/24 08:00 05/06/24 08:00 Temperature 98.3 F Pulse Rate 74 87 87 Respiratory Rate 22 H Blood Pressure 136/90 Pulse Oximetry 95 95 Oxygen Delivery Room Air 05/06/24 10:00 05/06/24 10:00 05/06/24 10:58 Temperature Pulse Rate 89 89 Respiratory Rate 17 Blood Pressure 132/91 H Pulse Oximetry 98 Oxygen Delivery Room Air 05/06/24 12:00 05/06/24 12:00 05/06/24 12:00 Temperature 98.9 F Pulse Rate 73 94 90 Respiratory Rate 15 Blood Pressure 126/91 H Pulse Oximetry 97 98 Oxygen Delivery Room Air 05/06/24 13:33 05/06/24 14:00 05/06/24 16:00 Temperature Pulse Rate 86 83 Respiratory Rate Blood Pressure Pulse Oximetry 96 Oxygen Delivery Room Air Room Air 05/06/24 16:00 05/06/24 16:00 05/06/24 18:00 Temperature 98.7 F Pulse Rate 73 83 78 Respiratory Rate 15 Blood Pressure 121/79 Pulse Oximetry 96 Oxygen Delivery 05/06/24 20:00 05/06/24 20:00 05/06/24 20:08 Temperature 98.7 F Pulse Rate 86 86 85 Respiratory Rate 16 Blood Pressure 147/91 H Pulse Oximetry 97 97 Oxygen Delivery Room Air 05/06/24 22:00 05/07/24 00:00 05/07/24 00:00 Temperature Pulse Rate 82 87 Respiratory Rate Blood Pressure Pulse Oximetry 97 Oxygen Delivery Room Air 05/07/24 00:00 05/07/24 02:00 05/07/24 04:00 Temperature 98.7 F 98.7 F Pulse Rate 87 85 85 Respiratory Rate 12 14 Blood Pressure 99/73 L 123/74 Pulse Oximetry 97 98 Oxygen Delivery 05/07/24 04:00 05/07/24 04:00 05/07/24 06:00 Temperature Pulse Rate 82 90 Respiratory Rate Blood Pressure Pulse Oximetry 95 Oxygen Delivery Room Air 05/07/24 07:51 05/07/24 07:51 Temperature Pulse Rate 98 Respiratory Rate 20 Blood Pressure Pulse Oximetry 98 Oxygen Delivery Room Air Intake/Output Intake/Output: Intake & Output 05/04/24 05/05/24 05/06/24 05/07/24 23:59 23:59 23:59 23:59 Intake Total 1492.6 1081.6 2688.3 900 Output Total 1857 1605 2180 1020 Balance -364.4 -523.4 508.3 -120 Meds/Results Medications: Active Medications Generic Name Dose Route Start Last Admin Trade Name Freq PRN Reason Stop Dose Admin Acetaminophen 650 mg 05/02/24 20:45 05/02/24 20:40 Acetaminophen Elixir 325 Mg/10.15 Ml Udc FEED TUBE 650 mg Q6H PRN Administration Mild Pain (1-3) or Fever Artificial Tears 1 drop 05/07/24 18:00 Artificial Tears Ophth Soln 15 Ml Bottle EACH EYE TID EVER Ascorbic Acid 1,000 mg 05/07/24 09:00 Ascorbic Acid 500 Mg Tablet PO DAILY EEVR Atorvastatin Calcium 40 mg 05/07/24 09:00 Atorvastatin 40 Mg Tablet PO QAM EVER Brimonidine Tartrate 1 drop 05/02/24 14:00 05/07/24 06:41 Brimonidine Tartrate 0.2% Op Soln 5 Ml Btl EACH EYE 1 drop Q8HR EVER Administration Brinzolamide 1 drop 05/02/24 14:00 05/07/24 03:52 Brinzolamide 1% Ophth Susp 10 Ml EACH EYE 1 drop Q8HR EVER Administration Cyanocobalamin 1,000 mcg 05/07/24 09:00 Cyanocobalamin 1,000 Mcg Tablet PO DAILY [facility] Fluticasone Propionate 1 spray 05/06/24 17:24 Fluticasone Propionate 0.05% Na Spr 16 Gm Btl (*Bkc) NASAL HS PRN nasal congestion Folic Acid 0.8 mg 05/07/24 09:00 Folic Acid 0.4 Mg Tablet PO QAM [facility] Metronidazole 500 mg in 100 mls @ 100 mls/hr 05/02/24 12:00 05/07/24 04:52 Flagyl 500 Mg/Iso Soln 100 Ml IVPB Infused Q8H [facility] Infusion Latanoprost 1 drop 05/02/24 21:00 05/06/24 20:16 Latanoprost 0.005% Op Soln 2.5 Ml Btl RIGHT EYE 1 drop HS EVER Administration Magnesium Oxide 200 mg 05/06/24 21:00 05/06/24 20:14 Magnesium Oxide 200 Mg Tablet PO 200 mg HS EVER Administration Midodrine 5 mg 05/05/24 17:00 05/06/24 16:36 Midodrine Hcl 2.5 Mg Tablet PO 5 mg TID EVER Administration Morphine Sulfate 2 mg 05/03/24 14:22 Morphine Sulfate (*Crx) 2 Mg/Ml Inj IV PUSH Q2H PRN Breakthrough Pain Rated 4-6 or NPO Morphine Sulfate 4 mg 05/03/24 14:22 Morphine Sulfate (*Crx) 4 Mg/Ml Inj IV PUSH Q2H PRN Breakthrough Pain Rated 7-10 or NPO Naloxone HCl 0.1 mg 05/03/24 14:22 Naloxone Hcl 0.4 Mg/Ml Vial IV PUSH Q2M PRN Opiate Reversal * Home Med * ( 2 each 05/06/24 20:00 05/07/24 07:49 Breztri Aerosphere) INHALATION 06/05/24 19:59 2 each Budes/Glycopyr/ Q12HRT EVER Administration Formot 160 Mcg-9 Mcg -4.8 Mcg Ondansetron HCl 4 mg 05/02/24 10:09 05/02/24 16:02 Ondansetron Inj 4 Mg/2 Ml Vial IV PUSH 4 mg Q6H PRN Administration Nausea And Vomiting Pantoprazole Sodium 40 mg 05/03/24 09:00 05/06/24 08:07 Pantoprazole Sodium Iv 40 Mg Vial IV PUSH 40 mg QAM EVER Administration Potassium Chloride 40 meq 05/07/24 07:37 Potassium Chloride 20 Meq Er Tablet PO 05/07/24 07:38 ONCE ONE Sodium Chloride 10 ml 05/03/24 06:00 05/07/24 04:00 Central Line Flush IV PUSH 10 ml Q8HR EVER Administration Sodium Chloride 20 ml 05/03/24 05:52 Central Line Flush IV PUSH PRN PRN after blood draws Tamsulosin HCl 0.4 mg 05/06/24 21:00 05/06/24 20:15 Tamsulosin Hcl 0.4 Mg Capsule PO 0.4 mg QHS EVER Administration Vancomycin HCl 125 mg 05/06/24 06:00 05/07/24 06:41 Vancomycin Hcl 125 Mg Oral Capsule PO 125 mg Q6HR EVER Administration Radiology Results: ITS Impressions Abdomen X-Ray 05/02/24 06:01 Impression: NG tube in satisfactory position. Suspected small bowel obstruction. Renal Ultrasound 05/02/24 15:30 IMPRESSION: 1. Chronic severe left hydronephrosis. Severe left kidney atrophy. 2. Nonobstructing right kidney stone. Abdomen/Pelvis CT 05/02/24 18:09 IMPRESSION: 1. Small bowel obstruction secondary to a left inguinal hernia containing small bowel. 2. Small volume of ascites. 3. Moderate-sized sliding hiatal hernia. 4. Left kidney stones including a stone in the renal pelvis with chronic severe hydronephrosis and severe kidney atrophy. 5. Nonobstructing right kidney stones. Chest X-Ray 05/06/24 19:38 IMPRESSION: Left basilar consolidation with small bilateral pleural effusions. Labs Labs: Laboratory Results - last 24 hr 05/06/24 05/06/24 05/06/24 10:01 11:44 16:49 WBC RBC Hgb Hct MCV MCH MCHC RDW Plt Count MPV Immature Gran % (Auto) Neut % (Auto) Lymph % (Auto) [place] % (Auto) Eos % (Auto) Baso % (Auto) Lymph # (Auto) [place] # (Auto) Eos # (Auto) Baso # (Auto) Abs Immat Gran (auto) Absolute Neuts (auto) Absolute Nucleated RBC Total Counted Neutrophils % (Manual) Band Neutrophils % Lymphocytes % (Manual) Monocytes % (Manual) Nucleated RBC % Abs Neuts (Manual) Abs Lymphs (Manual) Abs Monocytes (Manual) Platelet Estimate % Immature Plt Fraction Anisocytosis Ovalocytes [place] Cells Schistocytes Sodium 144 141 Potassium 3.0 L 3.0 L Chloride 115 H 112 H Carbon Dioxide 23 23 Anion Gap 6 6 BUN 69 H 64 H Creatinine 2.40 H 2.30 H Estim Creat Clear Calc 23 24 Estimated GFR 26 L 27 L Glucose 137 H 162 H Calcium 8.8 8.5 Phosphorus Magnesium Albumin Stl Occult Blood (IFOB) Positive H 05/07/24 04:08 WBC 10.2 H RBC 3.88 L Hgb 10.9 L Hct 33.8 L MCV 87.1 MCH 28.1 MCHC 32.2 RDW 15.9 H Plt Count 95 L MPV 11.3 H Immature Gran % (Auto) Not Reportable Neut % (Auto) Not Reportable Lymph % (Auto) Not Reportable [place] % (Auto) Not Reportable Eos % (Auto) Not Reportable Baso % (Auto) Not Reportable Lymph # (Auto) Not Reportable [place] # (Auto) Not Reportable Eos # (Auto) Not Reportable Baso # (Auto) Not Reportable Abs Immat Gran (auto) Not Reportable Absolute Neuts (auto) Not Reportable Absolute Nucleated RBC Not Reportable Total Counted 100 Neutrophils % (Manual) 84 H Band Neutrophils % 4 Lymphocytes % (Manual) 9.0 L Monocytes % (Manual) 3 Nucleated RBC % Not Reportable Abs Neuts (Manual) 8.97 H Abs Lymphs (Manual) 0.91 L Abs Monocytes (Manual) 0.30 Platelet Estimate Adequate % Immature Plt Fraction 2.8 Anisocytosis 1+ Ovalocytes 1+ [place] Cells 2+ Schistocytes None seen Sodium 142 Potassium 3.1 L Chloride 113 H Carbon Dioxide 24 Anion Gap 5 BUN 59 H Creatinine 2.00 H Estim Creat Clear Calc 27 Estimated GFR 32 L Glucose 105 Calcium 8.3 L Phosphorus 2.5 Magnesium 2.1 Albumin 2.9 L Stl Occult Blood (IFOB) Quality VTE Prophylaxis VTE prophylaxis: pharmacologic ordered
--- NOTE | 2024-05-07 08:00 | ECG_ITS ---
Test Date: 2024-05-07 08:06:56 Measurements Intervals [place] Rate: 96 P: 0 CA: 0 QRS: -28 QRSD: 102 T: 87 QT: 303 QTc: 383 Interpretive Statements ATRIAL FIBRILLATION BORDERLINE LEFT AXIS DEVIATION [QRS AXIS < -20] NONSPECIFIC ST & T-WAVE ABNORMALITY ABNORMAL RHYTHM ECG Compared to ECG 05/03/2024 10:00:29 No significant changes Electronically Signed On 05-07-2024 13:40:30 FISCAL ACCOUNTANT by Naya Watt M.D.
[2024-05-07] MEDS: FOLIC ACID 0.4 MG TABLET 0.8 MG PO (08:52)
[2024-05-07] MEDS: POTASSIUM CHLORIDE 20 MEQ ER TABLET 40 MEQ PO ×2 (08:52→12:25)
[2024-05-07] MEDS: MIDODRINE HCL 2.5 MG TABLET 5 MG PO ×3 (08:52→17:38)
[2024-05-07] MEDS: ATORVASTATIN 40 MG TABLET PO (08:52)
[2024-05-07] MEDS: CYANOCOBALAMIN 1,000 MCG TABLET 1000 MCG PO (08:52)
[2024-05-07] MEDS: PANTOPRAZOLE SODIUM IV 40 MG VIAL IV PUSH (08:52)
[2024-05-07] MEDS: ASCORBIC ACID 500 MG TABLET 1000 MG PO (08:52)
--- NOTE | 2024-05-07 09:09 | PM.PNCARD ---
Progress Note: A&P Assessment and Plan (1) New onset a-fib: Code(s): I48.91 - Unspecified atrial fibrillation Status: Acute (2) Hypotension: Code(s): I95.9 - Hypotension, unspecified Status: Acute (3) Atherosclerotic heart disease of [place] coronary artery without angina pectoris: Code(s): I25.10 - Atherosclerotic heart disease of [place] coronary artery without angina pectoris Status: Acute (4) Hypokalemia: Code(s): E87.6 - Hypokalemia Status: Acute Assessment and Plan: Assessment: 1. New onset nonvalvular atrial fibrillation with heart rate at rest in the 90s-100s in the setting of shock secondary to small-bowel obstruction; LVEF 50-55% 2. Hypotension with SBP 80s to 90s requiring Levophed and vasopressin. 3. 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 Thrombocytopenia with platelets [id number] 5. Hypokalemia with potassium 3.3 6. Anemia with hemoglobin 10.4 7. Hyperlipidemia 8. DANISHA on CKD (baseline creatinine 1.2 to 1.6)-admission creatinine 3.1; secondary to shock, hypotension 9. Shock secondary to small-bowel obstruction- SCAI shock stage C 10. Small bowel obstruction with incarcerated left inguinal hernia status post open incarcerated left inguinal hernia repair with mesh; cultures negative; on broad-spectrum antibiotics; 11. Renal stones- Left kidney stones with a stone in the renal pelvis with chronic severe hydronephrosis and severe kidney atrophy; nonobstructive stones in the right kidney Plan 1. Patient is very sick secondary to shock from small-bowel obstruction and incarcerated left inguinal hernia status post open repair. Pressors are being weaned, and currently on midodrine.. Given hypotension requiring pressor support, unable to use any AV katherine blockers for AFib rate control. Right now his rates are in the 90s to 110s range at rest and he is asymptomatic. Digoxin is not an option given DANISHA on CKD with creatinine of 3. Unable to use amiodarone as it has the potential to chemically cardiovert and this carries risk of stroke in patient not on anticoagulation. Hence monitor on telemetry without further medication at this time 2. He has a Chads Vasc score 2 (age greater than 75). Thus anticoagulation is recommended to reduce risk of stroke. However given recent surgery, we may not be able to start therapeutic anticoagulation until okay per surgery team. 3. Start anticoagulation with heparin when okay from surgical standpoint -in regards to atrial fibrillation, new onset. Heart rates 90-105. Unable to add AV katherine blocking agents due to low blood pressure. Recommend anticoagulation with IV heparin if no contraindication from surgical standpoint. -in regards to hypertension, continue midodrine. Has been weaned off pressors. -a gastro small-bowel obstruction status post open repair, continue supportive care. -cast hypokalemia, recommend to replenish. -in regards to acute on chronic kidney injury, creatinine improved today from 3-2. Baseline creatinine around 1.3 -in regards to C diff, management per ICU Subjective Date/time seen: Date of service 05/07/24 09:09 Interval history: Cardiology follow up visit Patient doing well. No acute events overnight. His SBFT was removed and diet advanced and he is tolerating well so far. Remains in atrial fibrillation with rate controlled on no AV katherine agents or antiarrhythmics. No chest pain, palpitations, shortness of breath. Date of service 05/07/2024-resting when chair. Has a rectal tube as he continues to have diarrhea . He remains in AFib with heart rates in the low 100s. Review of Systems Review of Systems: A complete review of systems was performed and negative other than those mentioned in HPI Exam Narrative: General: Alert oriented x3, no acute distress Neck: Supple, JVD + Chest: Bilaterally clear to auscultation, no rales or rhonchi Cardiac: S1, S2 +, irregularly irregular, no murmurs or rubs Extremities: Bilateral lower extremity edema 1+, no skin rash Neurologic: Alert and oriented x3, no focal neurological deficits Const: General: comfortable, no acute distress, alert and awake Orientation/consciousness: patient oriented x3 HENMT: Head: normal to inspection Eyes: General: appearance normal, both eyes and all related structures Pupils: Equal, round and reactive pupils present Neck: Neck: normal visual inspection, supple and no JVD Carotids: normal carotid upstroke Resp: Effort & Inspection: normal respiratory effort Auscultation: clear to auscultation bilaterally and diminished lung sounds Cardio: Rate: regular rate Rhythm: abnormal rhythm irregularly irregular Heart sounds: S1 normal heart sound present, S2 normal heart sound present and no murmurs GI: Auscultation: normal bowel sounds Skin: General skin exam: normal color Neuro: General: patient oriented x3 Cranial nerves: Yes Equal, round and reactive pupils present Extrem: General: normal to inspection Psych: Appearance: grossly normal Mental Status: mental status grossly normal Objective Data Vital Signs Vital Signs: Vital Signs - 24 hr 05/06/24 10:00 05/06/24 10:00 05/06/24 10:58 Temperature Pulse Rate 89 89 Respiratory Rate 17 Blood Pressure 132/91 H Pulse Oximetry 98 Oxygen Delivery Room Air 05/06/24 12:00 05/06/24 12:00 05/06/24 12:00 Temperature 37.2 C Pulse Rate 73 94 90 Respiratory Rate 15 Blood Pressure 126/91 H Pulse Oximetry 97 98 Oxygen Delivery Room Air 05/06/24 13:33 05/06/24 14:00 05/06/24 16:00 Temperature Pulse Rate 86 83 Respiratory Rate Blood Pressure Pulse Oximetry 96 Oxygen Delivery Room Air Room Air 05/06/24 16:00 05/06/24 16:00 05/06/24 18:00 Temperature 37.1 C Pulse Rate 73 83 78 Respiratory Rate 15 Blood Pressure 121/79 Pulse Oximetry 96 Oxygen Delivery 05/06/24 20:00 05/06/24 20:00 05/06/24 20:08 Temperature 37.1 C Pulse Rate 86 86 85 Respiratory Rate 16 Blood Pressure 147/91 H Pulse Oximetry 97 97 Oxygen Delivery Room Air 05/06/24 22:00 05/07/24 00:00 05/07/24 00:00 Temperature Pulse Rate 82 87 Respiratory Rate Blood Pressure Pulse Oximetry 97 Oxygen Delivery Room Air 05/07/24 00:00 05/07/24 02:00 05/07/24 04:00 Temperature 37.1 C 37.1 C Pulse Rate 87 85 85 Respiratory Rate 12 14 Blood Pressure 99/73 L 123/74 Pulse Oximetry 97 98 Oxygen Delivery 05/07/24 04:00 05/07/24 04:00 05/07/24 06:00 Temperature Pulse Rate 82 90 Respiratory Rate Blood Pressure Pulse Oximetry 95 Oxygen Delivery Room Air 05/07/24 07:51 05/07/24 07:51 05/07/24 08:00 Temperature 37.2 C Pulse Rate 98 119 H Respiratory Rate 20 20 Blood Pressure 130/79 Pulse Oximetry 98 98 Oxygen Delivery Room Air Intake/Output Intake/Output: Intake & Output 05/04/24 05/05/24 05/06/24 05/07/24 23:59 23:59 23:59 23:59 Intake Total 1492.6 1081.6 2688.3 900 Output Total 1857 1605 2180 1020 Balance -364.4 -523.4 508.3 -120 Meds/Results Medications: Active Medications Generic Name Dose Route Start Last Admin Trade Name Freq PRN Reason Stop Dose Admin Acetaminophen 650 mg 05/02/24 20:45 05/02/24 20:40 Acetaminophen Elixir 325 Mg/10.15 Ml Udc FEED TUBE 650 mg Q6H PRN Administration Mild Pain (1-3) or Fever Artificial Tears 1 drop 05/07/24 18:00 Artificial Tears Ophth Soln 15 Ml Bottle EACH EYE TID EVER Ascorbic Acid 1,000 mg 05/07/24 09:00 05/07/24 08:52 Ascorbic Acid 500 Mg Tablet PO 1,000 mg DAILY EVER Administration Atorvastatin Calcium 40 mg 05/07/24 09:00 05/07/24 08:52 Atorvastatin 40 Mg Tablet PO 40 mg QAM EVER Administration Brimonidine Tartrate 1 drop 05/02/24 14:00 05/07/24 06:41 Brimonidine Tartrate 0.2% Op Soln 5 Ml Btl EACH EYE 1 drop Q8HR EVER Administration Brinzolamide 1 drop 05/02/24 14:00 05/07/24 03:52 Brinzolamide 1% Ophth Susp 10 Ml EACH EYE 1 drop Q8HR EVER Administration Cyanocobalamin 1,000 mcg 05/07/24 09:00 05/07/24 08:52 Cyanocobalamin 1,000 Mcg Tablet PO 1,000 mcg DAILY EVER Administration Fluticasone Propionate 1 spray 05/06/24 17:24 Fluticasone Propionate 0.05% Na Spr 16 Gm Btl (*Bkc) NASAL HS PRN nasal congestion Folic Acid 0.8 mg 05/07/24 09:00 05/07/24 08:52 Folic Acid 0.4 Mg Tablet PO 0.8 mg QAM EVER Administration Metronidazole 500 mg in 100 mls @ 100 mls/hr 05/02/24 12:00 05/07/24 04:52 Flagyl 500 Mg/Iso Soln 100 Ml IVPB Infused Q8H EVER Infusion Latanoprost 1 drop 05/02/24 21:00 05/06/24 20:16 Latanoprost 0.005% Op Soln 2.5 Ml Btl RIGHT EYE 1 drop HS EVER Administration Magnesium Oxide 200 mg 05/06/24 21:00 05/06/24 20:14 Magnesium Oxide 200 Mg Tablet PO 200 mg HS EVER Administration Midodrine 5 mg 05/05/24 17:00 05/07/24 08:52 Midodrine Hcl 2.5 Mg Tablet PO 5 mg TID EVER Administration Morphine Sulfate 2 mg 05/03/24 14:22 Morphine Sulfate (*Crx) 2 Mg/Ml Inj IV PUSH Q2H PRN Breakthrough Pain Rated 4-6 or NPO Morphine Sulfate 4 mg 05/03/24 14:22 Morphine Sulfate (*Crx) 4 Mg/Ml Inj IV PUSH Q2H PRN Breakthrough Pain Rated 7-10 or NPO Naloxone HCl 0.1 mg 05/03/24 14:22 Naloxone Hcl 0.4 Mg/Ml Vial IV PUSH Q2M PRN Opiate Reversal * Home Med * ( 2 each 05/06/24 20:00 05/07/24 07:49 Breztri Aerosphere) INHALATION 06/05/24 19:59 2 each Budes/Glycopyr/ Q12HRT EVER Administration Formot 160 Mcg-9 Mcg -4.8 Mcg Ondansetron HCl 4 mg 05/02/24 10:09 05/02/24 16:02 Ondansetron Inj 4 Mg/2 Ml Vial IV PUSH 4 mg Q6H PRN Administration Nausea And Vomiting Pantoprazole Sodium 40 mg 05/03/24 09:00 05/07/24 08:52 Pantoprazole Sodium Iv 40 Mg Vial IV PUSH 40 mg QAM EVER Administration Sodium Chloride 10 ml 05/03/24 06:00 05/07/24 04:00 Central Line Flush IV PUSH 10 ml Q8HR EVER Administration Sodium Chloride 20 ml 05/03/24 05:52 Central Line Flush IV PUSH PRN PRN after blood draws Tamsulosin HCl 0.4 mg 05/06/24 21:00 05/06/24 20:15 Tamsulosin Hcl 0.4 Mg Capsule PO 0.4 mg QHS EVER Administration Vancomycin HCl 125 mg 05/06/24 06:00 05/07/24 06:41 Vancomycin Hcl 125 Mg Oral Capsule PO 125 mg Q6HR EVER Administration Radiology Results: ITS Impressions Abdomen X-Ray 05/02/24 06:01 Impression: NG tube in satisfactory position. Suspected small bowel obstruction. Renal Ultrasound 05/02/24 15:30 IMPRESSION: 1. Chronic severe left hydronephrosis. Severe left kidney atrophy. 2. Nonobstructing right kidney stone. Abdomen/Pelvis CT 05/02/24 18:09 IMPRESSION: 1. Small bowel obstruction secondary to a left inguinal hernia containing small bowel. 2. Small volume of ascites. 3. Moderate-sized sliding hiatal hernia. 4. Left kidney stones including a stone in the renal pelvis with chronic severe hydronephrosis and severe kidney atrophy. 5. Nonobstructing right kidney stones. Chest X-Ray 05/06/24 19:38 IMPRESSION: Left basilar consolidation with small bilateral pleural effusions. Labs Labs: Laboratory Results - last 24 hr 05/06/24 05/06/24 05/06/24 10:01 11:44 16:49 WBC RBC Hgb Hct MCV MCH MCHC RDW Plt Count MPV Immature Gran % (Auto) Neut % (Auto) Lymph % (Auto) [place] % (Auto) Eos % (Auto) Baso % (Auto) Lymph # (Auto) [place] # (Auto) Eos # (Auto) Baso # (Auto) Abs Immat Gran (auto) Absolute Neuts (auto) Absolute Nucleated RBC Total Counted Neutrophils % (Manual) Band Neutrophils % Lymphocytes % (Manual) Monocytes % (Manual) Nucleated RBC % Abs Neuts (Manual) Abs Lymphs (Manual) Abs Monocytes (Manual) Platelet Estimate % Immature Plt Fraction Anisocytosis Ovalocytes [place] Cells Schistocytes Sodium 144 141 Potassium 3.0 L 3.0 L Chloride 115 H 112 H Carbon Dioxide 23 23 Anion Gap 6 6 BUN 69 H 64 H Creatinine 2.40 H 2.30 H Estim Creat Clear Calc 23 24 Estimated GFR 26 L 27 L Glucose 137 H 162 H Calcium 8.8 8.5 Phosphorus Magnesium Albumin Stl Occult Blood (IFOB) Positive H 05/07/24 04:08 WBC 10.2 H RBC 3.88 L Hgb 10.9 L Hct 33.8 L MCV 87.1 MCH 28.1 MCHC 32.2 RDW 15.9 H Plt Count 95 L MPV 11.3 H Immature Gran % (Auto) Not Reportable Neut % (Auto) Not Reportable Lymph % (Auto) Not Reportable [place] % (Auto) Not Reportable Eos % (Auto) Not Reportable Baso % (Auto) Not Reportable Lymph # (Auto) Not Reportable [place] # (Auto) Not Reportable Eos # (Auto) Not Reportable Baso # (Auto) Not Reportable Abs Immat Gran (auto) Not Reportable Absolute Neuts (auto) Not Reportable Absolute Nucleated RBC Not Reportable Total Counted 100 Neutrophils % (Manual) 84 H Band Neutrophils % 4 Lymphocytes % (Manual) 9.0 L Monocytes % (Manual) 3 Nucleated RBC % Not Reportable Abs Neuts (Manual) 8.97 H Abs Lymphs (Manual) 0.91 L Abs Monocytes (Manual) 0.30 Platelet Estimate Adequate % Immature Plt Fraction 2.8 Anisocytosis 1+ Ovalocytes 1+ [place] Cells 2+ Schistocytes None seen Sodium 142 Potassium 3.1 L Chloride 113 H Carbon Dioxide 24 Anion Gap 5 BUN 59 H Creatinine 2.00 H Estim Creat Clear Calc 27 Estimated GFR 32 L Glucose 105 Calcium 8.3 L Phosphorus 2.5 Magnesium 2.1 Albumin 2.9 L Stl Occult Blood (IFOB)
--- NOTE | 2024-05-07 12:42 | PM.PNGS ---
Progress Note: A&P Assessment and Plan (1) Incarcerated left inguinal hernia: Code(s): K40.30 - Unilateral inguinal hernia, with obstruction, without gangrene, not specified as recurrent Status: Acute Assessment and Plan: Improving on POD#4. Advance diet as tolerated Drain output diminishing, possibly remove in 1-2 days. PT/OT ordered (2) C. difficile colitis: Code(s): A04.72 - Enterocolitis due to Clostridium difficile, not specified as recurrent Status: Acute Assessment and Plan: Oral Vancomycin ordered, IV flagyl continued. All other antibiotics stopped. (3) Acute on chronic renal failure: Code(s): N17.9 - Acute kidney failure, unspecified; N18.9 - Chronic kidney disease, unspecified Status: Acute Assessment and Plan: BUN/Cr slightly improved, continue as per Nephrology. 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 Rectal tube in place for persistent diarrhea. No groin pain. No nausea/vomiting. Exam Const: General: comfortable and no acute distress GI: Inspection: non-distended, incision (intact with glue) and other (RAKAN serosanguinous) GI Palp: Yes Soft to palpation, No Tenderness to palpation present (GI) and No Guarding due to palpation present (GI) Auscultation: normal bowel sounds Objective Data Vital Signs Vital Signs: Vital Signs - 24 hr 05/06/24 13:33 05/06/24 14:00 05/06/24 16:00 Temperature Pulse Rate 86 83 Respiratory Rate Blood Pressure Pulse Oximetry 96 Oxygen Delivery Room Air Room Air 05/06/24 16:00 05/06/24 16:00 05/06/24 18:00 Temperature 98.7 F Pulse Rate 73 83 78 Respiratory Rate 15 Blood Pressure 121/79 Pulse Oximetry 96 Oxygen Delivery 05/06/24 20:00 05/06/24 20:00 05/06/24 20:08 Temperature 98.7 F Pulse Rate 86 86 85 Respiratory Rate 16 Blood Pressure 147/91 H Pulse Oximetry 97 97 Oxygen Delivery Room Air 05/06/24 22:00 05/07/24 00:00 05/07/24 00:00 Temperature Pulse Rate 82 87 Respiratory Rate Blood Pressure Pulse Oximetry 97 Oxygen Delivery Room Air 05/07/24 00:00 05/07/24 02:00 05/07/24 04:00 Temperature 98.7 F 98.7 F Pulse Rate 87 85 85 Respiratory Rate 12 14 Blood Pressure 99/73 L 123/74 Pulse Oximetry 97 98 Oxygen Delivery 05/07/24 04:00 05/07/24 04:00 05/07/24 06:00 Temperature Pulse Rate 82 90 Respiratory Rate Blood Pressure Pulse Oximetry 95 Oxygen Delivery Room Air 05/07/24 07:51 05/07/24 07:51 05/07/24 08:00 Temperature 99 F Pulse Rate 98 119 H Respiratory Rate 20 20 Blood Pressure 130/79 Pulse Oximetry 98 98 Oxygen Delivery Room Air 05/07/24 08:00 05/07/24 08:00 05/07/24 10:00 Temperature Pulse Rate 83 92 Respiratory Rate Blood Pressure Pulse Oximetry 98 Oxygen Delivery Room Air 05/07/24 12:00 Temperature 98.9 F Pulse Rate 107 H Respiratory Rate 24 H Blood Pressure 129/81 Pulse Oximetry 100 Oxygen Delivery Intake/Output Intake/Output: Intake & Output 05/04/24 05/05/24 05/06/24 05/07/24 23:59 23:59 23:59 23:59 Intake Total 1492.6 1081.6 2688.3 1380 Output Total 1857 1605 2180 1020 Balance -364.4 -523.4 508.3 360 Meds/Results Medications: Active Medications Generic Name Dose Route Start Last Admin Trade Name Freq PRN Reason Stop Dose Admin Acetaminophen 650 mg 05/02/24 20:45 05/02/24 20:40 Acetaminophen Elixir 325 Mg/10.15 Ml Udc FEED TUBE 650 mg Q6H PRN Administration Mild Pain (1-3) or Fever Artificial Tears 1 drop 05/07/24 18:00 Artificial Tears Ophth Soln 15 Ml Bottle EACH EYE TID [facility] Ascorbic Acid 1,000 mg 05/07/24 09:00 05/07/24 08:52 Ascorbic Acid 500 Mg Tablet PO 1,000 mg DAILY EVER Administration Atorvastatin Calcium 40 mg 05/07/24 09:00 05/07/24 08:52 Atorvastatin 40 Mg Tablet PO 40 mg QAM EVER Administration Brimonidine Tartrate 1 drop 05/02/24 14:00 05/07/24 06:41 Brimonidine Tartrate 0.2% Op Soln 5 Ml Btl EACH EYE 1 drop Q8HR EVER Administration Brinzolamide 1 drop 05/02/24 14:00 05/07/24 03:52 Brinzolamide 1% Ophth Susp 10 Ml EACH EYE 1 drop Q8HR EVER Administration Cyanocobalamin 1,000 mcg 05/07/24 09:00 05/07/24 08:52 Cyanocobalamin 1,000 Mcg Tablet PO 1,000 mcg DAILY EVER Administration Fluticasone Propionate 1 spray 05/06/24 17:24 Fluticasone Propionate 0.05% Na Spr 16 Gm Btl (*Bkc) NASAL HS PRN nasal congestion Folic Acid 0.8 mg 05/07/24 09:00 05/07/24 08:52 Folic Acid 0.4 Mg Tablet PO 0.8 mg QAM EVER Administration Metronidazole 500 mg in 100 mls @ 100 mls/hr 05/02/24 12:00 05/07/24 12:25 Flagyl 500 Mg/Iso Soln 100 Ml IVPB 100 mls/hr Q8H EVER Administration Latanoprost 1 drop 05/02/24 21:00 05/06/24 20:16 Latanoprost 0.005% Op Soln 2.5 Ml Btl RIGHT EYE 1 drop HS EVER Administration Magnesium Oxide 200 mg 05/06/24 21:00 05/06/24 20:14 Magnesium Oxide 200 Mg Tablet PO 200 mg HS EVER Administration Midodrine 5 mg 05/05/24 17:00 05/07/24 12:25 Midodrine Hcl 2.5 Mg Tablet PO 5 mg TID EVER Administration Morphine Sulfate 2 mg 05/03/24 14:22 Morphine Sulfate (*Crx) 2 Mg/Ml Inj IV PUSH Q2H PRN Breakthrough Pain Rated 4-6 or NPO Morphine Sulfate 4 mg 05/03/24 14:22 Morphine Sulfate (*Crx) 4 Mg/Ml Inj IV PUSH Q2H PRN Breakthrough Pain Rated 7-10 or NPO Naloxone HCl 0.1 mg 05/03/24 14:22 Naloxone Hcl 0.4 Mg/Ml Vial IV PUSH Q2M PRN Opiate Reversal * Home Med * ( 2 each 05/06/24 20:00 05/07/24 07:49 Breztri Aerosphere) INHALATION 06/05/24 19:59 2 each Budes/Glycopyr/ Q12HRT EVER Administration Formot 160 Mcg-9 Mcg -4.8 Mcg Ondansetron HCl 4 mg 05/02/24 10:09 05/02/24 16:02 Ondansetron Inj 4 Mg/2 Ml Vial IV PUSH 4 mg Q6H PRN Administration Nausea And Vomiting Pantoprazole Sodium 40 mg 05/03/24 09:00 05/07/24 08:52 Pantoprazole Sodium Iv 40 Mg Vial IV PUSH 40 mg QAM EVER Administration Sodium Chloride 10 ml 05/03/24 06:00 05/07/24 04:00 Central Line Flush IV PUSH 10 ml Q8HR EVER Administration Sodium Chloride 20 ml 05/03/24 05:52 Central Line Flush IV PUSH PRN PRN after blood draws Tamsulosin HCl 0.4 mg 05/06/24 21:00 05/06/24 20:15 Tamsulosin Hcl 0.4 Mg Capsule PO 0.4 mg QHS EVER Administration Vancomycin HCl 125 mg 05/06/24 06:00 05/07/24 12:25 Vancomycin Hcl 125 Mg Oral Capsule PO 125 mg Q6HR EVER Administration Radiology Results: ITS Impressions Abdomen X-Ray 05/02/24 06:01 Impression: NG tube in satisfactory position. Suspected small bowel obstruction. Renal Ultrasound 05/02/24 15:30 IMPRESSION: 1. Chronic severe left hydronephrosis. Severe left kidney atrophy. 2. Nonobstructing right kidney stone. Abdomen/Pelvis CT 05/02/24 18:09 IMPRESSION: 1. Small bowel obstruction secondary to a left inguinal hernia containing small bowel. 2. Small volume of ascites. 3. Moderate-sized sliding hiatal hernia. 4. Left kidney stones including a stone in the renal pelvis with chronic severe hydronephrosis and severe kidney atrophy. 5. Nonobstructing right kidney stones. Chest X-Ray 05/06/24 19:38 IMPRESSION: Left basilar consolidation with small bilateral pleural effusions. Labs Labs: Laboratory Results - last 24 hr 05/06/24 05/06/24 05/07/24 10:01 16:49 04:08 WBC 10.2 H RBC 3.88 L Hgb 10.9 L Hct 33.8 L MCV 87.1 MCH 28.1 MCHC 32.2 RDW 15.9 H Plt Count 95 L MPV 11.3 H Immature Gran % (Auto) Not Reportable Neut % (Auto) Not Reportable Lymph % (Auto) Not Reportable [place] % (Auto) Not Reportable Eos % (Auto) Not Reportable Baso % (Auto) Not Reportable Lymph # (Auto) Not Reportable [place] # (Auto) Not Reportable Eos # (Auto) Not Reportable Baso # (Auto) Not Reportable Abs Immat Gran (auto) Not Reportable Absolute Neuts (auto) Not Reportable Absolute Nucleated RBC Not Reportable Total Counted 100 Neutrophils % (Manual) 84 H Band Neutrophils % 4 Lymphocytes % (Manual) 9.0 L Monocytes % (Manual) 3 Nucleated RBC % Not Reportable Abs Neuts (Manual) 8.97 H Abs Lymphs (Manual) 0.91 L Abs Monocytes (Manual) 0.30 Platelet Estimate Adequate % Immature Plt Fraction 2.8 Anisocytosis 1+ Ovalocytes 1+ [place] Cells 2+ Schistocytes None seen Sodium 141 142 Potassium 3.0 L 3.1 L Chloride 112 H 113 H Carbon Dioxide 23 24 Anion Gap 6 5 BUN 64 H 59 H Creatinine 2.30 H 2.00 H Estim Creat Clear Calc 24 27 Estimated GFR 27 L 32 L Glucose 162 H 105 Calcium 8.5 8.3 L Phosphorus 2.5 Magnesium 2.1 Albumin 2.9 L Stl Occult Blood (IFOB) Positive H
[2024-05-07 12:55] LABS: Potassium 3.2 mmol/L (3.4-5.0)
[2024-05-07 13:03] LABS: Anion Gap 7 mmol/L (4-12); Blood Urea Nitrogen 55 mg/dL (9-20); Calcium 8.3 mg/dL (8.4-10.2); Carbon Dioxide 22 mmol/L (22-30); Chloride 111 mmol/L (98-107); Estimated CRCL calculation 29 ml/min; Estimated Glomerular Filt Rate 34; Glucose 124 mg/dL (65-110); Sodium 140 mmol/L (137-145)
--- NOTE | 2024-05-07 17:32 | PC.NURSE ---
No urine output since Vann catheter removed. Per JEFF rCaft, Vann removed at 1030am. Per policy this RN bladder scanned patient related to no output 6 hours later. Bladder scan read 247mL. Discussed with patient will bladder scan again if no output on NOC shift prior to bed.
[2024-05-07] MEDS: MAGNESIUM OXIDE 200 MG TABLET PO (20:34)
[2024-05-07] MEDS: TAMSULOSIN HCL 0.4 MG CAPSULE PO (20:34)
[2024-05-07] MEDS: LATANOPROST 0.005% OP SOLN 2.5 ML BTL 1 DROP RIGHT EYE (20:34)
[2024-05-08] VITALS (12 sets, daily range): BP systolic 115–144; BP diastolic 67–88; PULSE 75–109; RESP 18–20; TEMP 36.2–37.5; O2SAT 96–99
[2024-05-08] MEDS: BRINZOLAMIDE 1% OPHTH SUSP 10 ML 1 DROP EACH EYE ×3 (05:25→20:40)
[2024-05-08] MEDS: metroNIDAZOLE 500 MG/ISO 100ML 500 MG/100 ML BAG 100 MG IVPB (05:25)
[2024-05-08] MEDS: BRIMONIDINE TARTRATE 0.2% OP SOLN 5 ML BTL 1 DROP EACH EYE ×3 (05:25→20:40)
[2024-05-08] MEDS: VANCOMYCIN HCL 125 MG ORAL CAPSULE PO ×4 (05:26→23:26)
[2024-05-08] MEDS: CENTRAL LINE FLUSH 10 ML IV PUSH ×2 (05:26→13:00)
[2024-05-08 05:47] LABS: Basophils Percent Auto 0.3 % (0.2-1.2); Eosinophils Absolute Auto 0.1 K/mm3 (0-0.3); Eosinophils Percent Auto 1.1 % (0-4.4); Hematocrit 33.9 % (42.0-52.0); Hemoglobin 10.9 g/dL (14.0-18.0); Immature Granulocyte Absolute 0.23 K/mm3 (0.00-0.031); Immature Platelet Fraction Pct 4.1 % (0.9-11.2); Lymphocytes Absolute Auto 1.18 K/mm3 (0.9-3.2); Lymphocytes Percent Auto 10.2 % (18.3-44.2); Mean Corpuscular HGB Conc 32.2 g/dl (32-36); Mean Corpuscular Hemoglobin 27.9 pg (26-34); Mean Corpuscular Volume 86.9 fl (80-100); Mean Platelet Volume 11.6 fl (7.4-10.4); Monocytes Absolute Auto 0.8 K/mm3 (0.1-0.6); Monocytes Percent Auto 6.8 % (2.6-8.5); Neutrophils Absolute Auto 9.2 K/mm3 (1.3-6.7); Neutrophils Percent Auto 79.6 % (45.5-73.1); Platelet Count Result 111 k/mm3 (150-375); Red Cell Distribution Width 15.6 % (11.5-14.5); White Blood Count 11.6 K/mm3 (4.5-10.0)
[2024-05-08 05:55] LABS: Albumin Level 2.8 g/dL (3.5-5.1); Anion Gap 4 mmol/L (4-12); Blood Urea Nitrogen 47 mg/dL (9-20); Calcium 8.2 mg/dL (8.4-10.2); Carbon Dioxide 22 mmol/L (22-30); Chloride 113 mmol/L (98-107); Estimated CRCL calculation 36 ml/min; Estimated Glomerular Filt Rate 39; Glucose 107 mg/dL (65-110); Phosphorus 2.9 mg/dL (2.5-4.5); Potassium 3.7 mmol/L (3.4-5.0); Sodium 139 mmol/L (137-145)
[2024-05-08] MEDS: BUDESONIDE INHALATION (08:20)
[2024-05-08] MEDS: FORMOTEROL INHALATION (08:20)
[2024-05-08] MEDS: GLYCOPYRROLATE INHALATION (08:20)
[2024-05-08] MEDS: FOLIC ACID 0.4 MG TABLET 0.8 MG PO (09:20)
[2024-05-08] MEDS: MIDODRINE HCL 2.5 MG TABLET 5 MG PO (09:20)
[2024-05-08] MEDS: ASCORBIC ACID 500 MG TABLET 1000 MG PO (09:20)
[2024-05-08] MEDS: CYANOCOBALAMIN 1,000 MCG TABLET 1000 MCG PO (09:20)
[2024-05-08] MEDS: PANTOPRAZOLE SODIUM IV 40 MG VIAL IV PUSH (09:21)
[2024-05-08] MEDS: ARTIFICIAL TEARS OPHTH SOLN 15 ML BOTTLE 1 DROP EACH EYE ×3 (09:21→18:14)
--- NOTE | 2024-05-08 09:21 | PM.PNNEP ---
Progress Note: A&P Assessment and Plan (1) Acute on chronic renal failure: Code(s): N17.9 - Acute kidney failure, unspecified; N18.9 - Chronic kidney disease, unspecified Status: Acute Assessment and Plan: Dylan has chronic renal insufficiency. He has one chronic obstructed kidney which is contributing very little to the overall function. Thus he is living off of 1 kidney. This would explain his mildly elevated creatinine at baseline. Baseline creatinine is 1.4-1.6 The patient has acute kidney injury as well. Renal ultrasound shows nothing acute in the right kidney. Course shows the chronically obstructed left kidney. Urine electrolytes are pre renal. He has several things that could cause this. contrast hypotension infection/abd process dehydration His blood pressure is doing well with the midodrine. I think we could stop this. The patient is on antibiotics so the infectious contribution to this process should be improving as well. I am sure the C diff isn't helping. He had surgery to help with the hernia/obstruction. Creatinine is almost down to baseline. The patient has C diff. Electrolytes look okay. Potassium and sodium are okay today (2) Atrial fibrillation: Code(s): I48.91 - Unspecified atrial fibrillation Status: Acute Assessment and Plan: Heart rate is 70s to 90s Anticoagulation per surgery/service (3) SBO (small bowel obstruction): Code(s): K56.609 - Unspecified intestinal obstruction, unspecified as to partial versus complete obstruction Status: Acute Assessment and Plan: He had surgery a few days ago. Having a good recovery from that standpoint. (4) C. difficile colitis: Code(s): A04.72 - Enterocolitis due to Clostridium difficile, not specified as recurrent Status: Acute Assessment and Plan: Now on oral vancomycin Still has liquid stools (5) Hypernatremia: Code(s): E87.0 - Hyperosmolality and hypernatremia Status: Acute Assessment and Plan: Sodium level back to normal today Subjective Date/time seen: 05/08/24 09:21 Interval history: Christoph is sitting up at the side of the bed. He is about to start his physical therapy. Eating is going okay he says. He had never does eat very much. I encouraged him to eat when he can. No shortness of breath. He has a little bit of swelling Exam Narrative: WDWN in NAD skin no rash or subQ nodules head ncat lungs clear mild increase in expiratory phase cor reg no rub or gallop abd BS+ nontender and soft but a little bit distended ext 1+ bilateral edema. No cyanosis Objective Data Vital Signs Vital Signs: Vital Signs - 24 hr 05/07/24 10:00 05/07/24 12:00 05/07/24 12:00 Temperature 98.9 F Pulse Rate 92 107 H 98 Respiratory Rate 24 H Blood Pressure 129/81 Pulse Oximetry 100 Oxygen Delivery Fraction of Inspired Oxygen 05/07/24 12:00 05/07/24 14:00 05/07/24 16:00 Temperature 97.9 F Pulse Rate 101 H 99 Respiratory Rate 20 Blood Pressure 120/64 Pulse Oximetry 100 98 Oxygen Delivery Room Air Fraction of Inspired Oxygen 05/07/24 16:00 05/07/24 16:00 05/07/24 17:59 Temperature Pulse Rate 87 96 97 Respiratory Rate 20 Blood Pressure Pulse Oximetry 98 Oxygen Delivery Room Air Fraction of Inspired Oxygen 96 05/07/24 20:00 05/07/24 20:00 05/07/24 20:21 Temperature 98.0 F Pulse Rate 91 91 89 Respiratory Rate 19 20 Blood Pressure 134/78 Pulse Oximetry 100 98 Oxygen Delivery Room Air Fraction of Inspired Oxygen 96 05/07/24 20:22 05/07/24 22:00 05/07/24 23:56 Temperature 98.2 F Pulse Rate 103 H 101 H 86 Respiratory Rate 19 20 Blood Pressure 123/80 Pulse Oximetry 100 100 Oxygen Delivery Room Air Fraction of Inspired Oxygen 96 05/07/24 23:56 05/08/24 00:00 05/08/24 01:51 Temperature 99.5 F Pulse Rate 86 80 86 Respiratory Rate 20 Blood Pressure 116/82 Pulse Oximetry 96 Oxygen Delivery Fraction of Inspired Oxygen 05/08/24 03:25 05/08/24 03:25 05/08/24 05:12 Temperature 99.4 F Pulse Rate 94 94 92 Respiratory Rate 20 20 Blood Pressure 135/88 Pulse Oximetry 96 99 Oxygen Delivery Room Air Fraction of Inspired Oxygen 05/08/24 05:45 05/08/24 08:00 Temperature 97.9 F Pulse Rate 98 75 Respiratory Rate 18 Blood Pressure 125/70 Pulse Oximetry 97 Oxygen Delivery Fraction of Inspired Oxygen Intake/Output Intake/Output: Intake & Output 05/05/24 05/06/24 05/07/24 05/08/24 23:59 23:59 23:59 23:59 Intake Total 1081.6 2688.3 2390 650 Output Total 1605 2180 1410 1330 Balance -523.4 508.3 980 -680 Meds/Results Medications: Active Medications Generic Name Dose Route Start Last Admin Trade Name Freq PRN Reason Stop Dose Admin Acetaminophen 650 mg 05/02/24 20:45 05/02/24 20:40 Acetaminophen Elixir 325 Mg/10.15 Ml Udc FEED TUBE 650 mg Q6H PRN Administration Mild Pain (1-3) or Fever Artificial Tears 1 drop 05/07/24 18:00 05/07/24 20:21 Artificial Tears Ophth Soln 15 Ml Bottle EACH EYE Not Given TID EVER Ascorbic Acid 1,000 mg 05/07/24 09:00 05/07/24 08:52 Ascorbic Acid 500 Mg Tablet PO 1,000 mg DAILY EVER Administration Atorvastatin Calcium 40 mg 05/07/24 09:00 05/07/24 08:52 Atorvastatin 40 Mg Tablet PO 40 mg QAM EVER Administration Brimonidine Tartrate 1 drop 05/02/24 14:00 05/08/24 05:25 Brimonidine Tartrate 0.2% Op Soln 5 Ml Btl EACH EYE 1 drop Q8HR EVER Administration Brinzolamide 1 drop 05/02/24 14:00 05/08/24 05:25 Brinzolamide 1% Ophth Susp 10 Ml EACH EYE 1 drop Q8HR EVER Administration Cyanocobalamin 1,000 mcg 05/07/24 09:00 05/07/24 08:52 Cyanocobalamin 1,000 Mcg Tablet PO 1,000 mcg DAILY EVER Administration Fluticasone Propionate 1 spray 05/06/24 17:24 Fluticasone Propionate 0.05% Na Spr 16 Gm Btl (*Bkc) NASAL HS PRN nasal congestion Folic Acid 0.8 mg 05/07/24 09:00 05/07/24 08:52 Folic Acid 0.4 Mg Tablet PO 0.8 mg QAM EVER Administration Metronidazole 500 mg in 100 mls @ 100 mls/hr 05/02/24 12:00 05/08/24 06:25 Flagyl 500 Mg/Iso Soln 100 Ml IVPB Infused Q8H EVER Infusion Latanoprost 1 drop 05/02/24 21:00 05/07/24 20:34 Latanoprost 0.005% Op Soln 2.5 Ml Btl RIGHT EYE 1 drop HS EVER Administration Magnesium Oxide 200 mg 05/06/24 21:00 05/07/24 20:34 Magnesium Oxide 200 Mg Tablet PO 200 mg HS EVER Administration Midodrine 5 mg 05/05/24 17:00 05/07/24 17:38 Midodrine Hcl 2.5 Mg Tablet PO 5 mg TID EVER Administration Morphine Sulfate 2 mg 05/03/24 14:22 Morphine Sulfate (*Crx) 2 Mg/Ml Inj IV PUSH Q2H PRN Breakthrough Pain Rated 4-6 or NPO Morphine Sulfate 4 mg 05/03/24 14:22 Morphine Sulfate (*Crx) 4 Mg/Ml Inj IV PUSH Q2H PRN Breakthrough Pain Rated 7-10 or NPO Naloxone HCl 0.1 mg 05/03/24 14:22 Naloxone Hcl 0.4 Mg/Ml Vial IV PUSH Q2M PRN Opiate Reversal * Home Med * ( 2 each 05/06/24 20:00 05/08/24 08:20 Breztri Aerosphere) INHALATION 06/05/24 19:59 2 each Budes/Glycopyr/ Q12HRT EVER Administration Formot 160 Mcg-9 Mcg -4.8 Mcg Ondansetron HCl 4 mg 05/02/24 10:09 05/02/24 16:02 Ondansetron Inj 4 Mg/2 Ml Vial IV PUSH 4 mg Q6H PRN Administration Nausea And Vomiting Pantoprazole Sodium 40 mg 05/03/24 09:00 05/07/24 08:52 Pantoprazole Sodium Iv 40 Mg Vial IV PUSH 40 mg QAM EVER Administration Sodium Chloride 10 ml 05/03/24 06:00 05/08/24 05:26 Central Line Flush IV PUSH 10 ml Q8HR EVER Administration Sodium Chloride 20 ml 05/03/24 05:52 Central Line Flush IV PUSH PRN PRN after blood draws Tamsulosin HCl 0.4 mg 05/06/24 21:00 05/07/24 20:34 Tamsulosin Hcl 0.4 Mg Capsule PO 0.4 mg QHS EVER Administration Vancomycin HCl 125 mg 05/06/24 06:00 05/08/24 05:26 Vancomycin Hcl 125 Mg Oral Capsule PO 125 mg Q6HR EVER Administration Radiology Results: ITS Impressions Abdomen X-Ray 05/02/24 06:01 Impression: NG tube in satisfactory position. Suspected small bowel obstruction. Renal Ultrasound 05/02/24 15:30 IMPRESSION: 1. Chronic severe left hydronephrosis. Severe left kidney atrophy. 2. Nonobstructing right kidney stone. Abdomen/Pelvis CT 05/02/24 18:09 IMPRESSION: 1. Small bowel obstruction secondary to a left inguinal hernia containing small bowel. 2. Small volume of ascites. 3. Moderate-sized sliding hiatal hernia. 4. Left kidney stones including a stone in the renal pelvis with chronic severe hydronephrosis and severe kidney atrophy. 5. Nonobstructing right kidney stones. Chest X-Ray 05/06/24 19:38 IMPRESSION: Left basilar consolidation with small bilateral pleural effusions. Labs Labs: Laboratory Results - last 24 hr 05/07/24 05/08/24 12:42 05:15 WBC 11.6 H RBC 3.90 L Hgb 10.9 L Hct 33.9 L MCV 86.9 MCH 27.9 MCHC 32.2 RDW 15.6 H Plt Count 111 L MPV 11.6 H Immature Gran % (Auto) 2.0 H Neut % (Auto) 79.6 H Lymph % (Auto) 10.2 L [place] % (Auto) 6.8 Eos % (Auto) 1.1 Baso % (Auto) 0.3 Lymph # (Auto) 1.18 [place] # (Auto) 0.8 H Eos # (Auto) 0.1 Baso # (Auto) 0.0 Abs Immat Gran (auto) 0.23 H Absolute Neuts (auto) 9.2 H Absolute Nucleated RBC 0.000 Nucleated RBC % 0.0 % Immature Plt Fraction 4.1 Sodium 140 139 Potassium 3.2 L 3.7 Chloride 111 H 113 H Carbon Dioxide 22 22 Anion Gap 7 4 BUN 55 H 47 H Creatinine 1.90 H 1.70 H Estim Creat Clear Calc 29 36 Estimated GFR 34 L 39 L Glucose 124 H 107 Calcium 8.3 L 8.2 L Phosphorus 2.9 Albumin 2.8 L
[2024-05-08] MEDS: ATORVASTATIN 40 MG TABLET PO (09:22)
--- NOTE | 2024-05-08 12:06 | P.PNGS_ITS ---
Progress Note: A&P Assessment and Plan (1) Incarcerated left inguinal hernia: Code(s): K40.30 - Unilateral inguinal hernia, with obstruction, without gangrene, not specified as recurrent Status: Acute Assessment and Plan: * Improving on POD#5. * Advance diet as tolerated * Remove RAKAN drain. * PT/OT ordered (2) C. difficile colitis: Code(s): A04.72 - Enterocolitis due to Clostridium difficile, not specified as recurrent Status: Acute Assessment and Plan: * Oral Vancomycin * All other antibiotics stopped. 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 Subjective Subjective Date/Time Seen: 05/08/24 12:06 Interval history: Rectal tube remains. Still having diarrhea. No abdominal pain. Tolerating diet. Exam Const: General: comfortable and no acute distress GI: Inspection: non-distended, incision (intact with glue) and other (RAKAN serosanguinous) GI Palp: Yes Soft to palpation, No Tenderness to palpation present (GI) and No Guarding due to palpation present (GI) Auscultation: normal bowel sounds Objective Data Vital Signs Vital Signs: Vital Signs - 24 hr 05/07/24 14:00 05/07/24 16:00 05/07/24 16:00 Temperature 97.9 F Pulse Rate 101 H 99 87 Respiratory Rate 20 20 Blood Pressure 120/64 Pulse Oximetry 98 98 Oxygen Delivery Room Air Fraction of Inspired Oxygen 96 05/07/24 16:00 05/07/24 17:59 05/07/24 20:00 Temperature Pulse Rate 96 97 91 Respiratory Rate 19 Blood Pressure Pulse Oximetry 100 Oxygen Delivery Room Air Fraction of Inspired Oxygen 96 05/07/24 20:00 05/07/24 20:21 05/07/24 20:22 Temperature 98.0 F 98.2 F Pulse Rate 91 89 103 H Respiratory Rate 20 19 Blood Pressure 134/78 123/80 Pulse Oximetry 98 100 Oxygen Delivery Fraction of Inspired Oxygen 05/07/24 22:00 05/07/24 23:56 05/07/24 23:56 Temperature Pulse Rate 101 H 86 86 Respiratory Rate 20 Blood Pressure Pulse Oximetry 100 Oxygen Delivery Room Air Fraction of Inspired Oxygen 96 05/08/24 00:00 05/08/24 01:51 05/08/24 03:25 Temperature 99.5 F Pulse Rate 80 86 94 Respiratory Rate 20 20 Blood Pressure 116/82 Pulse Oximetry 96 96 Oxygen Delivery Room Air Fraction of Inspired Oxygen 05/08/24 03:25 05/08/24 05:12 05/08/24 05:45 Temperature 99.4 F Pulse Rate 94 92 98 Respiratory Rate 20 Blood Pressure 135/88 Pulse Oximetry 99 Oxygen Delivery Fraction of Inspired Oxygen 05/08/24 08:00 05/08/24 08:00 05/08/24 08:00 Temperature 97.9 F Pulse Rate 75 84 Respiratory Rate 18 Blood Pressure 125/70 Pulse Oximetry 97 97 Oxygen Delivery Room Air Fraction of Inspired Oxygen 05/08/24 08:20 05/08/24 08:20 05/08/24 10:00 Temperature Pulse Rate 90 90 103 H Respiratory Rate 18 18 Blood Pressure Pulse Oximetry 97 Oxygen Delivery Room Air Fraction of Inspired Oxygen 05/08/24 11:50 Temperature 98.6 F Pulse Rate 92 Respiratory Rate 18 Blood Pressure 115/67 Pulse Oximetry 99 Oxygen Delivery Fraction of Inspired Oxygen Intake/Output Intake/Output: Intake & Output 05/05/24 05/06/24 05/07/24 05/08/24 23:59 23:59 23:59 23:59 Intake Total 1081.6 2688.3 2390 890 Output Total 1605 2180 1410 2080 Balance -523.4 508.3 980 -1190 Meds/Results Medications: Active Medications Generic Name Dose Route Start Last Admin Trade Name Freq PRN Reason Stop Dose Admin Acetaminophen 650 mg 05/02/24 20:45 05/02/24 20:40 Acetaminophen Elixir 325 Mg/10.15 Ml Udc FEED TUBE 650 mg Q6H PRN Administration Mild Pain (1-3) or Fever Artificial Tears 1 drop 05/07/24 18:00 05/08/24 09:21 Artificial Tears Ophth Soln 15 Ml Bottle EACH EYE 1 drop TID EVER Administration Ascorbic Acid 1,000 mg 05/07/24 09:00 05/08/24 09:20 Ascorbic Acid 500 Mg Tablet PO 1,000 mg DAILY EVER Administration Atorvastatin Calcium 40 mg 05/07/24 09:00 05/08/24 09:22 Atorvastatin 40 Mg Tablet PO 40 mg QAM EVER Administration Brimonidine Tartrate 1 drop 05/02/24 14:00 05/08/24 05:25 Brimonidine Tartrate 0.2% Op Soln 5 Ml Btl EACH EYE 1 drop Q8HR EVER Administration Brinzolamide 1 drop 05/02/24 14:00 05/08/24 05:25 Brinzolamide 1% Ophth Susp 10 Ml EACH EYE 1 drop Q8HR EVER Administration Cyanocobalamin 1,000 mcg 05/07/24 09:00 05/08/24 09:20 Cyanocobalamin 1,000 Mcg Tablet PO 1,000 mcg DAILY EVER Administration Fluticasone Propionate 1 spray 05/06/24 17:24 Fluticasone Propionate 0.05% Na Spr 16 Gm Btl (*Bkc) NASAL HS PRN nasal congestion Folic Acid 0.8 mg 05/07/24 09:00 05/08/24 09:20 Folic Acid 0.4 Mg Tablet PO 0.8 mg QAM EVER Administration Latanoprost 1 drop 05/02/24 21:00 05/07/24 20:34 Latanoprost 0.005% Op Soln 2.5 Ml Btl RIGHT EYE 1 drop HS EVER Administration Magnesium Oxide 200 mg 05/06/24 21:00 05/07/24 20:34 Magnesium Oxide 200 Mg Tablet PO 200 mg HS EVER Administration Morphine Sulfate 2 mg 05/03/24 14:22 Morphine Sulfate (*Crx) 2 Mg/Ml Inj IV PUSH Q2H PRN Breakthrough Pain Rated 4-6 or NPO Morphine Sulfate 4 mg 05/03/24 14:22 Morphine Sulfate (*Crx) 4 Mg/Ml Inj IV PUSH Q2H PRN Breakthrough Pain Rated 7-10 or NPO Naloxone HCl 0.1 mg 05/03/24 14:22 Naloxone Hcl 0.4 Mg/Ml Vial IV PUSH Q2M PRN Opiate Reversal * Home Med * ( 2 each 05/06/24 20:00 05/08/24 08:20 Breztri Aerosphere) INHALATION 06/05/24 19:59 2 each Budes/Glycopyr/ Q12HRT EVER Administration Formot 160 Mcg-9 Mcg -4.8 Mcg Ondansetron HCl 4 mg 05/02/24 10:09 05/02/24 16:02 Ondansetron Inj 4 Mg/2 Ml Vial IV PUSH 4 mg Q6H PRN Administration Nausea And Vomiting Pantoprazole Sodium 40 mg 05/09/24 09:00 Pantoprazole 40 Mg Tablet PO QAM EVER Sodium Chloride 10 ml 05/03/24 06:00 05/08/24 05:26 Central Line Flush IV PUSH 10 ml Q8HR EVER Administration Sodium Chloride 20 ml 05/03/24 05:52 Central Line Flush IV PUSH PRN PRN after blood draws Tamsulosin HCl 0.4 mg 05/06/24 21:00 05/07/24 20:34 Tamsulosin Hcl 0.4 Mg Capsule PO 0.4 mg QHS VEER Administration Vancomycin HCl 125 mg 05/06/24 06:00 05/08/24 05:26 Vancomycin Hcl 125 Mg Oral Capsule PO 05/16/24 00:01 125 mg Q6HR EVER Administration Radiology Results: ITS Impressions Abdomen X-Ray 05/02/24 06:01 Impression: NG tube in satisfactory position. Suspected small bowel obstruction. Renal Ultrasound 05/02/24 15:30 IMPRESSION: 1. Chronic severe left hydronephrosis. Severe left kidney atrophy. 2. Nonobstructing right kidney stone. Abdomen/Pelvis CT 05/02/24 18:09 IMPRESSION: 1. Small bowel obstruction secondary to a left inguinal hernia containing small bowel. 2. Small volume of ascites. 3. Moderate-sized sliding hiatal hernia. 4. Left kidney stones including a stone in the renal pelvis with chronic severe hydronephrosis and severe kidney atrophy. 5. Nonobstructing right kidney stones. Chest X-Ray 05/06/24 19:38 IMPRESSION: Left basilar consolidation with small bilateral pleural effusions. Labs Labs: Laboratory Results - last 24 hr 05/07/24 05/08/24 12:42 05:15 WBC 11.6 H RBC 3.90 L Hgb 10.9 L Hct 33.9 L MCV 86.9 MCH 27.9 MCHC 32.2 RDW 15.6 H Plt Count 111 L MPV 11.6 H Immature Gran % (Auto) 2.0 H Neut % (Auto) 79.6 H Lymph % (Auto) 10.2 L [place] % (Auto) 6.8 Eos % (Auto) 1.1 Baso % (Auto) 0.3 Lymph # (Auto) 1.18 [place] # (Auto) 0.8 H Eos # (Auto) 0.1 Baso # (Auto) 0.0 Abs Immat Gran (auto) 0.23 H Absolute Neuts (auto) 9.2 H Absolute Nucleated RBC 0.000 Nucleated RBC % 0.0 % Immature Plt Fraction 4.1 Sodium 140 139 Potassium 3.2 L 3.7 Chloride 111 H 113 H Carbon Dioxide 22 22 Anion Gap 7 4 BUN 55 H 47 H Creatinine 1.90 H 1.70 H Estim Creat Clear Calc 29 36 Estimated GFR 34 L 39 L Glucose 124 H 107 Calcium 8.3 L 8.2 L Phosphorus 2.9 Albumin 2.8 L
--- NOTE | 2024-05-08 12:54 | P.PNIM_ITS ---
Progress Note: A&P Assessment and Plan (1) Shock: Code(s): R57.9 - Shock, unspecified Status: Resolved Assessment and Plan: * Patient initially presented with septic shock related to incarcerated hernia and SBO * Patient was given 3 L fluid resuscitation in ED but remained HoTN. Central line placed and pressors started. * Lactic 4.8 -> 1.45 * Was on Cefepime, Flagyl and Vancomycin initially--now on oral Vancomycin and Flagyl for C-diff. * Was in ICU on vasopressors that were weaned off on the . * Blood cultures showing no growth to date on preliminary read * WBC continues to trend down, 10.2 05/08/24: * No longer meeting shock criteria. * Off pressors. * Removed from Flagyl and remains on po Vancomycin. * Final Blood culture results are negative for any growth. * Resolved (2) C. difficile colitis: Code(s): A04.72 - Enterocolitis due to Clostridium difficile, not specified as recurrent Status: Acute Assessment and Plan: * Continue oral vanc and Flagyl 05/08/24: * Flagyl discontinued and oral vanc dose changed per pharmacy to meet treatment guidelines. * FMS in place. (3) Hypokalemia: Code(s): E87.6 - Hypokalemia Status: Resolved Assessment and Plan: * Potassium 3.1 * 40 mEq of potassium given 05/08/24: * Stable Potassium now at 3.7. (4) SBO (small bowel obstruction): Code(s): K56.609 - Unspecified intestinal obstruction, unspecified as to partial versus complete obstruction Status: Acute Assessment and Plan: * S/P open incarcerated left inguinal hernia repair with mesh, no bowel ischemia noted * NGT discontinued on the , advancing diet-- currently on full liquid diet * General surgery following * Continue pain and nausea control * Patient having BM's * Continue PT and OT 05/08/24: * Surgery following. (5) Atrial fibrillation: Code(s): I48.91 - Unspecified atrial fibrillation Status: Acute Assessment and Plan: * Patient went into AFib 05/03. Rate controlled. * Echo showing EF 50-55%, abnormal diastolic fxn, possible PFO and mild valvular disease. * Cardiology following * Monitor on tele for now. 05/08/24: * OK from Surgery received to anticoagulate with Heparin. Heparin 5000 units BID ordered as pt has new onset fib. * Will monitor for any s/s of bleeding. * Currently, he is rate controlled. * Continue telemetry on medical floor. (6) Incarcerated left inguinal hernia: Code(s): K40.30 - Unilateral inguinal hernia, with obstruction, without gangrene, not specified as recurrent Status: Acute Assessment and Plan: As above (7) Acute on chronic renal failure: Code(s): N17.9 - Acute kidney failure, unspecified; N18.9 - Chronic kidney disease, unspecified Status: Acute Assessment and Plan: * Creatinine 2.0, continuing to trend down * Nephrology following * Avoid nephrotoxic medication or testing with IV contrast * Continue fluid restriction * Will remove beasley today 05/08/24: * Creatinine continues to improve and is currently 1.7 today. * Urinating freely per madhavi. (8) Obstructive uropathy: Code(s): N13.9 - Obstructive and reflux uropathy, unspecified Status: Acute Assessment and Plan: * CT Abd/Pelvis 05/02 shows multiple nonobstructing right renal stones, markedly enlarged left kidney with marked, severe chronic hydronephrosis and severe diffuse cortical thinning. There is a large, presumably chronically obstructing stone at the left renal pelvis region measuring 3.0 x 2.0 cm in size. Additional smaller nonobstructing left renal stones are also present. * Renal US showing chronic severe left hydronephrosis and severe left kidney atrophy * UA is not consistent with UTI. * Known finding per patient hx. 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 * [place] this is an incidental finding and not contributing to his current illness * Urology felt the right renal stones should be treated and will arrange for this as outpatient. 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 He continues to have a FMS, purewick, and RAKAN drain. His Central line and his midodrine are stopped and discontinued. He was evaluated by surgery today and given the OK to start anticoagulation for his new onset fib. Heparin is ordered as that was what was preferred by Cardiology's note. He is also stable for stepdown to a regular med/tele bed. His midodrine was also stopped. Pt without any new complaints or symptoms today. Review of Systems Review of Systems: All systems reviewed & are unremarkable except as noted in HPI and below Exam Narrative: General: In no acute distress, well nourished Head: atraumatic, no encephalopathy Eyes: PERRLA, sclera clear ENT: moist mucous membranes, nasal passages clear Neck: supple, no JVD, no adenopathy, trachea midline Cardiac: Irregular rhythm of Atrial Fibrillation. No murmur, gallops or friction rubs, peripheral pulses intact. Respiratory: Lungs clear to auscultation, no adventitious lung sounds, currently on room air Gastrointestinal: soft, non-distended, non-tender, normoactive bowel sounds. Fecal management system in place : voiding without difficulty per purewick. Extremities: moves all extremities well, no edema, good ROM, strength 5/5 Skin: clean, dry, intact. Surgical dressing midline without shadowing. Neuro: Alert and oriented x4, cranial nerves intact, no neuro deficits. Psych: normal mood, normal affect, interactive Objective Data Vital Signs Vital Signs: Vital Signs - 24 hr 05/07/24 14:00 05/07/24 16:00 05/07/24 16:00 Temperature 97.9 F Pulse Rate 101 H 99 87 Respiratory Rate 20 20 Blood Pressure 120/64 Pulse Oximetry 98 98 Oxygen Delivery Room Air Fraction of Inspired Oxygen 96 05/07/24 16:00 05/07/24 17:59 05/07/24 20:00 Temperature Pulse Rate 96 97 91 Respiratory Rate 19 Blood Pressure Pulse Oximetry 100 Oxygen Delivery Room Air Fraction of Inspired Oxygen 96 05/07/24 20:00 05/07/24 20:21 05/07/24 20:22 Temperature 98.0 F 98.2 F Pulse Rate 91 89 103 H Respiratory Rate 20 19 Blood Pressure 134/78 123/80 Pulse Oximetry 98 100 Oxygen Delivery Fraction of Inspired Oxygen 05/07/24 22:00 05/07/24 23:56 05/07/24 23:56 Temperature Pulse Rate 101 H 86 86 Respiratory Rate 20 Blood Pressure Pulse Oximetry 100 Oxygen Delivery Room Air Fraction of Inspired Oxygen 96 05/08/24 00:00 05/08/24 01:51 05/08/24 03:25 Temperature 99.5 F Pulse Rate 80 86 94 Respiratory Rate 20 20 Blood Pressure 116/82 Pulse Oximetry 96 96 Oxygen Delivery Room Air Fraction of Inspired Oxygen 05/08/24 03:25 05/08/24 05:12 05/08/24 05:45 Temperature 99.4 F Pulse Rate 94 92 98 Respiratory Rate 20 Blood Pressure 135/88 Pulse Oximetry 99 Oxygen Delivery Fraction of Inspired Oxygen 05/08/24 08:00 05/08/24 08:00 05/08/24 08:00 Temperature 97.9 F Pulse Rate 75 84 Respiratory Rate 18 Blood Pressure 125/70 Pulse Oximetry 97 97 Oxygen Delivery Room Air Fraction of Inspired Oxygen 05/08/24 08:20 05/08/24 08:20 05/08/24 10:00 Temperature Pulse Rate 90 90 103 H Respiratory Rate 18 18 Blood Pressure Pulse Oximetry 97 Oxygen Delivery Room Air Fraction of Inspired Oxygen 05/08/24 11:50 Temperature 98.6 F Pulse Rate 92 Respiratory Rate 18 Blood Pressure 115/67 Pulse Oximetry 99 Oxygen Delivery Fraction of Inspired Oxygen Intake/Output Intake/Output: Intake & Output 05/05/24 05/06/24 05/07/24 05/08/24 23:59 23:59 23:59 23:59 Intake Total 1081.6 2688.3 2390 890 Output Total 1605 2180 1410 2080 Balance -523.4 508.3 980 -1190 Meds/Results Medications: Active Medications Generic Name Dose Route Start Last Admin Trade Name Freq PRN Reason Stop Dose Admin Acetaminophen 650 mg 05/02/24 20:45 05/02/24 20:40 Acetaminophen Elixir 325 Mg/10.15 Ml Udc FEED TUBE 650 mg Q6H PRN Administration Mild Pain (1-3) or Fever Artificial Tears 1 drop 05/07/24 18:00 05/08/24 09:21 Artificial Tears Ophth Soln 15 Ml Bottle EACH EYE 1 drop TID EVER Administration Ascorbic Acid 1,000 mg 05/07/24 09:00 05/08/24 09:20 Ascorbic Acid 500 Mg Tablet PO 1,000 mg DAILY EVER Administration Atorvastatin Calcium 40 mg 05/07/24 09:00 05/08/24 09:22 Atorvastatin 40 Mg Tablet PO 40 mg QAM EVER Administration Brimonidine Tartrate 1 drop 05/02/24 14:00 05/08/24 05:25 Brimonidine Tartrate 0.2% Op Soln 5 Ml Btl EACH EYE 1 drop Q8HR EVER Administration Brinzolamide 1 drop 05/02/24 14:00 05/08/24 05:25 Brinzolamide 1% Ophth Susp 10 Ml EACH EYE 1 drop Q8HR EVER Administration Cyanocobalamin 1,000 mcg 05/07/24 09:00 05/08/24 09:20 Cyanocobalamin 1,000 Mcg Tablet PO 1,000 mcg DAILY EVER Administration Fluticasone Propionate 1 spray 05/06/24 17:24 Fluticasone Propionate 0.05% Na Spr 16 Gm Btl (*Bkc) NASAL HS PRN nasal congestion Folic Acid 0.8 mg 05/07/24 09:00 05/08/24 09:20 Folic Acid 0.4 Mg Tablet PO 0.8 mg QAM EVER Administration Heparin Sodium (Porcine) 5,000 units 05/08/24 12:35 Heparin Sodium 5,000 Units/Ml Vial SUB-Q Q12HR EVER Latanoprost 1 drop 05/02/24 21:00 05/07/24 20:34 Latanoprost 0.005% Op Soln 2.5 Ml Btl RIGHT EYE 1 drop HS EVER Administration Magnesium Oxide 200 mg 05/06/24 21:00 05/07/24 20:34 Magnesium Oxide 200 Mg Tablet PO 200 mg HS EVER Administration Morphine Sulfate 2 mg 05/03/24 14:22 Morphine Sulfate (*Crx) 2 Mg/Ml Inj IV PUSH Q2H PRN Breakthrough Pain Rated 4-6 or NPO Morphine Sulfate 4 mg 05/03/24 14:22 Morphine Sulfate (*Crx) 4 Mg/Ml Inj IV PUSH Q2H PRN Breakthrough Pain Rated 7-10 or NPO Naloxone HCl 0.1 mg 05/03/24 14:22 Naloxone Hcl 0.4 Mg/Ml Vial IV PUSH Q2M PRN Opiate Reversal * Home Med * ( 2 each 05/06/24 20:00 05/08/24 08:20 Breztri [employer]) INHALATION 06/05/24 19:59 2 each Budes/Glycopyr/ Q12HRT EVER Administration Formot 160 Mcg-9 Mcg -4.8 Mcg Ondansetron HCl 4 mg 05/02/24 10:09 05/02/24 16:02 Ondansetron Inj 4 Mg/2 Ml Vial IV PUSH 4 mg Q6H PRN Administration Nausea And Vomiting Pantoprazole Sodium 40 mg 05/09/24 09:00 Pantoprazole 40 Mg Tablet PO QAM EVER Sodium Chloride 10 ml 05/03/24 06:00 05/08/24 05:26 Central Line Flush IV PUSH 10 ml Q8HR EVER Administration Sodium Chloride 20 ml 05/03/24 05:52 Central Line Flush IV PUSH PRN PRN after blood draws Tamsulosin HCl 0.4 mg 05/06/24 21:00 05/07/24 20:34 Tamsulosin Hcl 0.4 Mg Capsule PO 0.4 mg QHS EVER Administration Vancomycin HCl 125 mg 05/06/24 06:00 05/08/24 05:26 Vancomycin Hcl 125 Mg Oral Capsule PO 05/16/24 00:01 125 mg Q6HR EVER Administration Radiology Results: ITS Impressions Abdomen X-Ray 05/02/24 06:01 Impression: NG tube in satisfactory position. Suspected small bowel obstruction. Renal Ultrasound 05/02/24 15:30 IMPRESSION: 1. Chronic severe left hydronephrosis. Severe left kidney atrophy. 2. Nonobstructing right kidney stone. Abdomen/Pelvis CT 05/02/24 18:09 IMPRESSION: 1. Small bowel obstruction secondary to a left inguinal hernia containing small bowel. 2. Small volume of ascites. 3. Moderate-sized sliding hiatal hernia. 4. Left kidney stones including a stone in the renal pelvis with chronic severe hydronephrosis and severe kidney atrophy. 5. Nonobstructing right kidney stones. Chest X-Ray 05/06/24 19:38 IMPRESSION: Left basilar consolidation with small bilateral pleural effusions. Labs Labs: Laboratory Results - last 24 hr 05/07/24 05/08/24 12:42 05:15 WBC 11.6 H RBC 3.90 L Hgb 10.9 L Hct 33.9 L MCV 86.9 MCH 27.9 MCHC 32.2 RDW 15.6 H Plt Count 111 L MPV 11.6 H Immature Gran % (Auto) 2.0 H Neut % (Auto) 79.6 H Lymph % (Auto) 10.2 L Alexander % (Auto) 6.8 Eos % (Auto) 1.1 Baso % (Auto) 0.3 Lymph # (Auto) 1.18 Alexander # (Auto) 0.8 H Eos # (Auto) 0.1 Baso # (Auto) 0.0 Abs Immat Gran (auto) 0.23 H Absolute Neuts (auto) 9.2 H Absolute Nucleated RBC 0.000 Nucleated RBC % 0.0 % Immature Plt Fraction 4.1 Sodium 140 139 Potassium 3.2 L 3.7 Chloride 111 H 113 H Carbon Dioxide 22 22 Anion Gap 7 4 BUN 55 H 47 H Creatinine 1.90 H 1.70 H Estim Creat Clear Calc 29 36 Estimated GFR 34 L 39 L Glucose 124 H 107 Calcium 8.3 L 8.2 L Phosphorus 2.9 Albumin 2.8 L Quality VTE Prophylaxis VTE prophylaxis: pharmacologic ordered
[2024-05-08] MEDS: HEPARIN SODIUM 5,000 UNITS/ML VIAL 5000 UNITS SUB-Q ×2 (12:59→20:37)
--- NOTE | 2024-05-08 15:45 | PC.NURSE ---
This patient, Dylan Masters, was transferred to [facility] on 05/08/24 at 1545. Personal belongings sent with patient. Report given to JEFF Saxena. Appropriate documentation sent with patient.
[2024-05-08] MEDS: MAGNESIUM OXIDE 200 MG TABLET PO (20:37)
[2024-05-08] MEDS: TAMSULOSIN HCL 0.4 MG CAPSULE PO (20:38)
[2024-05-08] MEDS: LATANOPROST 0.005% OP SOLN 2.5 ML BTL 1 DROP RIGHT EYE (20:39)
[2024-05-09] VITALS (9 sets, daily range): BP systolic 113–151; BP diastolic 53–82; PULSE 68–94; RESP 16–20; TEMP 36.2–36.9; O2SAT 97–100
[2024-05-09] MEDS: BRIMONIDINE TARTRATE 0.2% OP SOLN 5 ML BTL 1 DROP EACH EYE ×3 (06:28→21:01)
[2024-05-09] MEDS: BRINZOLAMIDE 1% OPHTH SUSP 10 ML 1 DROP EACH EYE ×3 (06:28→21:01)
[2024-05-09] MEDS: VANCOMYCIN HCL 125 MG ORAL CAPSULE PO ×4 (06:28→23:37)
[2024-05-09 09:04] LABS: Hematocrit 37.2 % (42.0-52.0); Hemoglobin 11.6 g/dL (14.0-18.0); Mean Corpuscular HGB Conc 31.2 g/dl (32-36); Mean Corpuscular Hemoglobin 27.7 pg (26-34); Mean Corpuscular Volume 88.8 fl (80-100); Platelet Count Result 140 k/mm3 (150-375); Red Blood Count 4.19 M/mm3 (4.6-6.20); Red Cell Distribution Width 15.4 % (11.5-14.5); White Blood Count 12.4 K/mm3 (4.5-10.0)
[2024-05-09 09:05] LABS: Anion Gap 5 mmol/L (4-12); Blood Urea Nitrogen 40 mg/dL (9-20); Calcium 8.6 mg/dL (8.4-10.2); Carbon Dioxide 20 mmol/L (22-30); Chloride 112 mmol/L (98-107); Estimated CRCL calculation 34 ml/min; Estimated Glomerular Filt Rate 36; Glucose 109 mg/dL (65-110); Potassium 3.9 mmol/L (3.4-5.0); Sodium 137 mmol/L (137-145)
--- NOTE | 2024-05-09 09:11 | PM.PNNEP ---
Progress Note: A&P Assessment and Plan (1) Acute on chronic renal failure: Code(s): N17.9 - Acute kidney failure, unspecified; N18.9 - Chronic kidney disease, unspecified Status: Acute Assessment and Plan: Dylan has chronic renal insufficiency. He has one chronic obstructed kidney which is contributing very little to the overall function. Thus he is living off of 1 kidney. This would explain his mildly elevated creatinine at baseline. Baseline creatinine is 1.4-1.6 The patient has acute kidney injury as well. Renal ultrasound shows nothing acute in the right kidney. Course shows the chronically obstructed left kidney. Urine electrolytes are pre renal. He has several things that could cause this. contrast hypotension infection/abd process dehydration Blood pressure is doing well off the midodrine. Creatinine is almost down to baseline. It seems to be wandering in the 1.7-1.8 region it might still improve or this may be a new baseline. Sodium and potassium are both doing well. CO2 is dropping a little bit. This is probably from the diarrhea Will add sodium bicarbonate (2) Atrial fibrillation: Code(s): I48.91 - Unspecified atrial fibrillation Status: Acute Assessment and Plan: Heart rate is 70s to 90s Anticoagulation per surgery/service (3) SBO (small bowel obstruction): Code(s): K56.609 - Unspecified intestinal obstruction, unspecified as to partial versus complete obstruction Status: Acute Assessment and Plan: He had surgery a few days ago. Having a good recovery from that standpoint. (4) C. difficile colitis: Code(s): A04.72 - Enterocolitis due to Clostridium difficile, not specified as recurrent Status: Acute Assessment and Plan: Now on oral vancomycin Still has liquid stools (5) Hypernatremia: Code(s): E87.0 - Hyperosmolality and hypernatremia Status: Acute Assessment and Plan: Sodium level back to normal today Subjective Date/time seen: 05/09/24 09:11 Interval history: Patient is alert. Sitting up in a chair beside the bed Still having liquid bowel movement. FMS is still in Exam Narrative: WDWN in NAD skin no rash head ncat lungs fairly clear cor reg no rub or gallop abd BS+ nontender and soft but a little bit distended ext 1+ bilateral edema. No cyanosis or clubbing Objective Data Vital Signs Vital Signs: Vital Signs - 24 hr 05/08/24 10:00 05/08/24 11:50 05/08/24 12:00 Temperature 98.6 F Pulse Rate 103 H 92 101 H Respiratory Rate 18 Blood Pressure 115/67 Pulse Oximetry 99 Oxygen Delivery 05/08/24 20:00 05/08/24 20:00 05/08/24 21:53 Temperature 97.2 F L Pulse Rate 109 H 93 Respiratory Rate 18 Blood Pressure 144/72 H Pulse Oximetry 96 Oxygen Delivery Room Air 05/09/24 00:00 05/09/24 04:00 05/09/24 05:18 Temperature 97.1 F L Pulse Rate 94 88 83 Respiratory Rate 18 Blood Pressure 113/71 Pulse Oximetry 100 Oxygen Delivery Intake/Output Intake/Output: Intake & Output 05/06/24 05/07/24 05/08/24 05/09/24 23:59 23:59 23:59 23:59 Intake Total 2688.3 2390 2420 550 Output Total 2180 1410 2280 650 Balance 508.3 980 140 -100 Meds/Results Medications: Active Medications Generic Name Dose Route Start Last Admin Trade Name Freq PRN Reason Stop Dose Admin Acetaminophen 650 mg 05/02/24 20:45 05/02/24 20:40 Acetaminophen Elixir 325 Mg/10.15 Ml Udc FEED TUBE 650 mg Q6H PRN Administration Mild Pain (1-3) or Fever Artificial Tears 1 drop 05/07/24 18:00 05/08/24 18:14 Artificial Tears Ophth Soln 15 Ml Bottle EACH EYE 1 drop TID EVER Administration Ascorbic Acid 1,000 mg 05/07/24 09:00 05/08/24 09:20 Ascorbic Acid 500 Mg Tablet PO 1,000 mg DAILY EVER Administration Atorvastatin Calcium 40 mg 05/07/24 09:00 05/08/24 09:22 Atorvastatin 40 Mg Tablet PO 40 mg QAM EVER Administration Brimonidine Tartrate 1 drop 05/02/24 14:00 05/09/24 06:28 Brimonidine Tartrate 0.2% Op Soln 5 Ml Btl EACH EYE 1 drop Q8HR EVER Administration Brinzolamide 1 drop 05/02/24 14:00 05/09/24 06:28 Brinzolamide 1% Ophth Susp 10 Ml EACH EYE 1 drop Q8HR EVER Administration Cyanocobalamin 1,000 mcg 05/07/24 09:00 05/08/24 09:20 Cyanocobalamin 1,000 Mcg Tablet PO 1,000 mcg DAILY EVER Administration Fluticasone Propionate 1 spray 05/06/24 17:24 Fluticasone Propionate 0.05% Na Spr 16 Gm Btl (*Bkc) NASAL HS PRN nasal congestion Folic Acid 0.8 mg 05/07/24 09:00 05/08/24 09:20 Folic Acid 0.4 Mg Tablet PO 0.8 mg QAM EVER Administration Heparin Sodium (Porcine) 5,000 units 05/08/24 12:35 05/08/24 20:37 Heparin Sodium 5,000 Units/Ml Vial SUB-Q 5,000 units Q12HR EVER Administration Latanoprost 1 drop 05/02/24 21:00 05/08/24 20:39 Latanoprost 0.005% Op Soln 2.5 Ml Btl RIGHT EYE 1 drop HS EVER Administration Magnesium Oxide 200 mg 05/06/24 21:00 05/08/24 20:37 Magnesium Oxide 200 Mg Tablet PO 200 mg HS EVER Administration Morphine Sulfate 2 mg 05/03/24 14:22 Morphine Sulfate (*Crx) 2 Mg/Ml Inj IV PUSH Q2H PRN Breakthrough Pain Rated 4-6 or NPO Morphine Sulfate 4 mg 05/03/24 14:22 Morphine Sulfate (*Crx) 4 Mg/Ml Inj IV PUSH Q2H PRN Breakthrough Pain Rated 7-10 or NPO Naloxone HCl 0.1 mg 05/03/24 14:22 Naloxone Hcl 0.4 Mg/Ml Vial IV PUSH Q2M PRN Opiate Reversal * Home Med * ( 2 each 05/06/24 20:00 05/08/24 23:24 Hyper We[employer]ri [employer]) INHALATION 06/05/24 19:59 Not Given Budes/Glycopyr/ Q12HRT EVER Formot 160 Mcg-9 Mcg -4.8 Mcg Ondansetron HCl 4 mg 05/02/24 10:09 05/02/24 16:02 Ondansetron Inj 4 Mg/2 Ml Vial IV PUSH 4 mg Q6H PRN Administration Nausea And Vomiting Pantoprazole Sodium 40 mg 05/09/24 09:00 Pantoprazole 40 Mg Tablet PO QAM EVER Sodium Chloride 20 ml 05/03/24 05:52 Central Line Flush IV PUSH PRN PRN after blood draws Tamsulosin HCl 0.4 mg 05/06/24 21:00 05/08/24 20:38 Tamsulosin Hcl 0.4 Mg Capsule PO 0.4 mg QHS EVER Administration Vancomycin HCl 125 mg 05/06/24 06:00 05/09/24 06:28 Vancomycin Hcl 125 Mg Oral Capsule PO 05/16/24 00:01 125 mg Q6HR EVER Administration Radiology Results: ITS Impressions Abdomen X-Ray 05/02/24 06:01 Impression: NG tube in satisfactory position. Suspected small bowel obstruction. Renal Ultrasound 05/02/24 15:30 IMPRESSION: 1. Chronic severe left hydronephrosis. Severe left kidney atrophy. 2. Nonobstructing right kidney stone. Abdomen/Pelvis CT 05/02/24 18:09 IMPRESSION: 1. Small bowel obstruction secondary to a left inguinal hernia containing small bowel. 2. Small volume of ascites. 3. Moderate-sized sliding hiatal hernia. 4. Left kidney stones including a stone in the renal pelvis with chronic severe hydronephrosis and severe kidney atrophy. 5. Nonobstructing right kidney stones. Chest X-Ray 05/06/24 19:38 IMPRESSION: Left basilar consolidation with small bilateral pleural effusions. Labs Labs: Laboratory Results - last 24 hr 05/09/24 08:38 Sodium 137 Potassium 3.9 Chloride 112 H Carbon Dioxide 20 L Anion Gap 5 BUN 40 H Creatinine 1.80 H Estim Creat Clear Calc 34 Estimated GFR 36 L Glucose 109 Calcium 8.6 Magnesium 2.0
[2024-05-09] MEDS: ASCORBIC ACID 500 MG TABLET 1000 MG PO (10:43)
[2024-05-09] MEDS: FOLIC ACID 0.4 MG TABLET 0.8 MG PO (10:43)
[2024-05-09] MEDS: CYANOCOBALAMIN 1,000 MCG TABLET 1000 MCG PO (10:43)
[2024-05-09] MEDS: HEPARIN SODIUM 5,000 UNITS/ML VIAL 5000 UNITS SUB-Q ×2 (10:43→20:57)
[2024-05-09] MEDS: PANTOPRAZOLE 40 MG TABLET PO (10:43)
[2024-05-09] MEDS: ATORVASTATIN 40 MG TABLET PO (10:43)
[2024-05-09] MEDS: ARTIFICIAL TEARS OPHTH SOLN 15 ML BOTTLE 1 DROP EACH EYE ×3 (10:50→18:22)
--- NOTE | 2024-05-09 11:57 | P.PNGS_ITS ---
Progress Note: A&P Assessment and Plan (1) Incarcerated left inguinal hernia: Code(s): K40.30 - Unilateral inguinal hernia, with obstruction, without gangrene, not specified as recurrent Status: Acute Assessment and Plan: * Improving on POD#6. * Tolerating regular diet * Surgically stable for discharge (2) C. difficile colitis: Code(s): A04.72 - Enterocolitis due to Clostridium difficile, not specified as recurrent Status: Acute Assessment and Plan: * Oral Vancomycin * Stool a little more formed in rectal tube--will order removal today. 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 Subjective Subjective Date/Time Seen: 05/09/24 11:57 Interval history: Continuing to feel better. Tolerating solid diet. No abdominal or groin pain. No fevers. Exam Const: General: comfortable and no acute distress GI: Inspection: non-distended and incision (intact with glue) GI Palp: Yes Soft to palpation, No Tenderness to palpation present (GI) and No Guarding due to palpation present (GI) Auscultation: normal bowel sounds Objective Data Vital Signs Vital Signs: Vital Signs - 24 hr 05/08/24 12:00 05/08/24 20:00 05/08/24 20:00 Temperature Pulse Rate 101 H 109 H Respiratory Rate Blood Pressure Pulse Oximetry Oxygen Delivery Room Air 05/08/24 21:53 05/09/24 00:00 05/09/24 04:00 Temperature 97.2 F L Pulse Rate 93 94 88 Respiratory Rate 18 Blood Pressure 144/72 H Pulse Oximetry 96 Oxygen Delivery 05/09/24 05:18 Temperature 97.1 F L Pulse Rate 83 Respiratory Rate 18 Blood Pressure 113/71 Pulse Oximetry 100 Oxygen Delivery Intake/Output Intake/Output: Intake & Output 05/06/24 05/07/24 05/08/24 05/09/24 23:59 23:59 23:59 23:59 Intake Total 2688.3 2390 2420 800 Output Total 2180 1410 2280 650 Balance 508.3 980 140 150 Meds/Results Medications: Active Medications Generic Name Dose Route Start Last Admin Trade Name Freq PRN Reason Stop Dose Admin Acetaminophen 650 mg 05/02/24 20:45 05/02/24 20:40 Acetaminophen Elixir 325 Mg/10.15 Ml Udc FEED TUBE 650 mg Q6H PRN Administration Mild Pain (1-3) or Fever Artificial Tears 1 drop 05/07/24 18:00 05/09/24 10:50 Artificial Tears Ophth Soln 15 Ml Bottle EACH EYE 1 drop TID EVER Administration Ascorbic Acid 1,000 mg 05/07/24 09:00 05/09/24 10:43 Ascorbic Acid 500 Mg Tablet PO 1,000 mg DAILY EVER Administration Atorvastatin Calcium 40 mg 05/07/24 09:00 05/09/24 10:43 Atorvastatin 40 Mg Tablet PO 40 mg QAM EVER Administration Brimonidine Tartrate 1 drop 05/02/24 14:00 05/09/24 06:28 Brimonidine Tartrate 0.2% Op Soln 5 Ml Btl EACH EYE 1 drop Q8HR EVER Administration Brinzolamide 1 drop 05/02/24 14:00 05/09/24 06:28 Brinzolamide 1% Ophth Susp 10 Ml EACH EYE 1 drop Q8HR EVER Administration Cyanocobalamin 1,000 mcg 05/07/24 09:00 05/09/24 10:43 Cyanocobalamin 1,000 Mcg Tablet PO 1,000 mcg DAILY EVER Administration Fluticasone Propionate 1 spray 05/06/24 17:24 Fluticasone Propionate 0.05% Na Spr 16 Gm Btl (*Bkc) NASAL HS PRN nasal congestion Folic Acid 0.8 mg 05/07/24 09:00 05/09/24 10:43 Folic Acid 0.4 Mg Tablet PO 0.8 mg QAM EVER Administration Heparin Sodium (Porcine) 5,000 units 05/08/24 12:35 05/09/24 10:43 Heparin Sodium 5,000 Units/Ml Vial SUB-Q 5,000 units Q12HR EVER Administration Latanoprost 1 drop 05/02/24 21:00 05/08/24 20:39 Latanoprost 0.005% Op Soln 2.5 Ml Btl RIGHT EYE 1 drop HS EVER Administration Magnesium Oxide 200 mg 05/06/24 21:00 05/08/24 20:37 Magnesium Oxide 200 Mg Tablet PO 200 mg HS EVER Administration Morphine Sulfate 2 mg 05/03/24 14:22 Morphine Sulfate (*Crx) 2 Mg/Ml Inj IV PUSH Q2H PRN Breakthrough Pain Rated 4-6 or NPO Morphine Sulfate 4 mg 05/03/24 14:22 Morphine Sulfate (*Crx) 4 Mg/Ml Inj IV PUSH Q2H PRN Breakthrough Pain Rated 7-10 or NPO Naloxone HCl 0.1 mg 05/03/24 14:22 Naloxone Hcl 0.4 Mg/Ml Vial IV PUSH Q2M PRN Opiate Reversal * Home Med * ( 2 each 05/06/24 20:00 05/09/24 10:25 [employer] [facility]) INHALATION 06/05/24 19:59 Not Given Budes/Glycopyr/ Q12HRT [facility] Formot 160 Mcg-9 Mcg -4.8 Mcg Ondansetron HCl 4 mg 05/02/24 10:09 05/02/24 16:02 Ondansetron Inj 4 Mg/2 Ml Vial IV PUSH 4 mg Q6H PRN Administration Nausea And Vomiting Pantoprazole Sodium 40 mg 05/09/24 09:00 05/09/24 10:43 Pantoprazole 40 Mg Tablet PO 40 mg QAM [facility] Administration Sodium Bicarbonate 1,300 mg 05/09/24 18:00 Sodium Bicarbonate Tab 650 Mg Tablet PO BIDPC [facility] Sodium Chloride 20 ml 05/03/24 05:52 Central Line Flush IV PUSH PRN PRN after blood draws Tamsulosin HCl 0.4 mg 05/06/24 21:00 05/08/24 20:38 Tamsulosin Hcl 0.4 Mg Capsule PO 0.4 mg QHS EVER Administration Vancomycin HCl 125 mg 05/06/24 06:00 05/09/24 06:28 Vancomycin Hcl 125 Mg Oral Capsule PO 05/16/24 00:01 125 mg Q6HR EVER Administration Radiology Results: ITS Impressions Abdomen X-Ray 05/02/24 06:01 Impression: NG tube in satisfactory position. Suspected small bowel obstruction. Renal Ultrasound 05/02/24 15:30 IMPRESSION: 1. Chronic severe left hydronephrosis. Severe left kidney atrophy. 2. Nonobstructing right kidney stone. Abdomen/Pelvis CT 05/02/24 18:09 IMPRESSION: 1. Small bowel obstruction secondary to a left inguinal hernia containing small bowel. 2. Small volume of ascites. 3. Moderate-sized sliding hiatal hernia. 4. Left kidney stones including a stone in the renal pelvis with chronic severe hydronephrosis and severe kidney atrophy. 5. Nonobstructing right kidney stones. Chest X-Ray 05/06/24 19:38 IMPRESSION: Left basilar consolidation with small bilateral pleural effusions. Labs Labs: Laboratory Results - last 24 hr 05/09/24 08:38 WBC 12.4 H RBC 4.19 L Hgb 11.6 L Hct 37.2 L MCV 88.8 MCH 27.7 MCHC 31.2 L RDW 15.4 H Plt Count 140 L MPV 12.0 H Sodium 137 Potassium 3.9 Chloride 112 H Carbon Dioxide 20 L Anion Gap 5 BUN 40 H Creatinine 1.80 H Estim Creat Clear Calc 34 Estimated GFR 36 L Glucose 109 Calcium 8.6 Magnesium 2.0
--- NOTE | 2024-05-09 12:00 | PCNWS ---
Weekly nutritional screen. Patient is tolerating current Regular diet with adequate intake 50-100%. Banatrol added for c.diff. No weight loss reported. No further nutritional recommendations at this time.
--- NOTE | 2024-05-09 12:20 | P.PNIM_ITS ---
Progress Note: A&P Assessment and Plan (1) Shock: Code(s): R57.9 - Shock, unspecified Status: Resolved Assessment and Plan: S/p IVF and pressors Intially on Cefepime, Flagyl and Vancomycin, now transitioned to PO Vanc septis from C diff thus patient on PO Vanc now Blood cultures negative (2) C. difficile colitis: Code(s): A04.72 - Enterocolitis due to Clostridium difficile, not specified as recurrent Status: Acute Assessment and Plan: On PO Vanc FMS (3) Hypokalemia: Code(s): E87.6 - Hypokalemia Status: Resolved Assessment and Plan: * Potassium 3.1 * 40 mEq of potassium given 05/08/24: * Stable Potassium now at 3.7. (4) SBO (small bowel obstruction): Code(s): K56.609 - Unspecified intestinal obstruction, unspecified as to partial versus complete obstruction Status: Acute Assessment and Plan: * S/P open incarcerated left inguinal hernia repair with mesh, no bowel ischemia noted * now tolerating diet SUrgery following (5) Atrial fibrillation: Code(s): I48.91 - Unspecified atrial fibrillation Status: Acute Assessment and Plan: * Patient went into AFib 05/03. Rate controlled. * Echo showing EF 50-55%, abnormal diastolic fxn, possible PFO and mild valvular disease. * Cardiology following * Monitor on tele for now. * WIll clarify from surgery about starting OAC (6) Incarcerated left inguinal hernia: Code(s): K40.30 - Unilateral inguinal hernia, with obstruction, without gangrene, not specified as recurrent Status: Acute Assessment and Plan: As above (7) Acute on chronic renal failure: Code(s): N17.9 - Acute kidney failure, unspecified; N18.9 - Chronic kidney disease, unspecified Status: Acute Assessment and Plan: * Creatinine 2.0, continuing to trend down * Nephrology following * Avoid nephrotoxic medication or testing with IV contrast * Continue fluid restriction * Will remove beasley today 05/08/24: * Creatinine continues to improve and is currently 1.7 today. * Urinating freely per purewick. * Creatinine appears to be at baseline (8) Obstructive uropathy: Code(s): N13.9 - Obstructive and reflux uropathy, unspecified Status: Acute Assessment and Plan: * CT Abd/Pelvis 05/02 shows multiple nonobstructing right renal stones, markedly enlarged left kidney with marked, severe chronic hydronephrosis and severe diffuse cortical thinning. There is a large, presumably chronically obstructing stone at the left renal pelvis region measuring 3.0 x 2.0 cm in size. Additional smaller nonobstructing left renal stones are also present. * Renal US showing chronic severe left hydronephrosis and severe left kidney atrophy * UA is not consistent with UTI. * Known finding per patient hx. 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 * [place] this is an incidental finding and not contributing to his current illness * Urology felt the right renal stones should be treated and will arrange for this as outpatient. 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, unspecified Status: Acute Assessment and Plan: * History of PFO * Continue Breztri Plan DVT prophylaxis on Sq Lovenox Subjective Date/time seen: 05/09/24 12:20 Interval history: Patient comfortable at bedside and still on Fecal management system PT/OT eval Review of Systems Review of Systems: All systems reviewed & are unremarkable except as noted in HPI and below Exam Narrative: General: In no acute distress, well nourished Head: atraumatic, no encephalopathy Eyes: PERRLA, sclera clear ENT: moist mucous membranes, nasal passages clear Neck: supple, no JVD, no adenopathy, trachea midline Cardiac: Irregular rhythm of Atrial Fibrillation. No murmur, gallops or friction rubs, peripheral pulses intact. Respiratory: Lungs clear to auscultation, no adventitious lung sounds, currently on room air Gastrointestinal: soft, non-distended, non-tender, normoactive bowel sounds. Fecal management system in place : voiding without difficulty per purewick. Extremities: moves all extremities well, no edema, good ROM, strength 5/5 Skin: clean, dry, intact. Surgical dressing midline without shadowing. Neuro: Alert and oriented x4, cranial nerves intact, no neuro deficits. Psych: normal mood, normal affect, interactive Objective Data Vital Signs Vital Signs: Vital Signs - 24 hr 05/08/24 20:00 05/08/24 20:00 05/08/24 21:53 Temperature 97.2 F L Pulse Rate 109 H 93 Respiratory Rate 18 Blood Pressure 144/72 H Pulse Oximetry 96 Oxygen Delivery Room Air 05/09/24 00:00 05/09/24 04:00 05/09/24 05:18 Temperature 97.1 F L Pulse Rate 94 88 83 Respiratory Rate 18 Blood Pressure 113/71 Pulse Oximetry 100 Oxygen Delivery Intake/Output Intake/Output: Intake & Output 05/06/24 05/07/24 05/08/24 05/09/24 23:59 23:59 23:59 23:59 Intake Total 2688.3 2390 2420 800 Output Total 2180 1410 2280 650 Balance 508.3 980 140 150 Meds/Results Medications: Active Medications Generic Name Dose Route Start Last Admin Trade Name Freq PRN Reason Stop Dose Admin Acetaminophen 650 mg 05/09/24 11:59 Acetaminophen 325 Mg Tablet BY MOUTH Q6H PRN Mild Pain (1-3) or Fever Artificial Tears 1 drop 05/07/24 18:00 05/09/24 10:50 Artificial Tears Ophth Soln 15 Ml Bottle EACH EYE 1 drop TID EVER Administration Ascorbic Acid 1,000 mg 05/07/24 09:00 05/09/24 10:43 Ascorbic Acid 500 Mg Tablet PO 1,000 mg DAILY EVER Administration Atorvastatin Calcium 40 mg 05/07/24 09:00 05/09/24 10:43 Atorvastatin 40 Mg Tablet PO 40 mg QAM EVER Administration Brimonidine Tartrate 1 drop 05/02/24 14:00 05/09/24 06:28 Brimonidine Tartrate 0.2% Op Soln 5 Ml Btl EACH EYE 1 drop Q8HR EVER Administration Brinzolamide 1 drop 05/02/24 14:00 05/09/24 06:28 Brinzolamide 1% Ophth Susp 10 Ml EACH EYE 1 drop Q8HR EVER Administration Cyanocobalamin 1,000 mcg 05/07/24 09:00 05/09/24 10:43 Cyanocobalamin 1,000 Mcg Tablet PO 1,000 mcg DAILY EVER Administration Fluticasone Propionate 1 spray 05/06/24 17:24 Fluticasone Propionate 0.05% Na Spr 16 Gm Btl (*Bkc) NASAL HS PRN nasal congestion Folic Acid 0.8 mg 05/07/24 09:00 05/09/24 10:43 Folic Acid 0.4 Mg Tablet PO 0.8 mg QAM EVER Administration Heparin Sodium (Porcine) 5,000 units 05/08/24 12:35 05/09/24 10:43 Heparin Sodium 5,000 Units/Ml Vial SUB-Q 5,000 units Q12HR EVER Administration Latanoprost 1 drop 05/02/24 21:00 05/08/24 20:39 Latanoprost 0.005% Op Soln 2.5 Ml Btl RIGHT EYE 1 drop HS EVER Administration Magnesium Oxide 200 mg 05/06/24 21:00 05/08/24 20:37 Magnesium Oxide 200 Mg Tablet PO 200 mg HS EVER Administration Morphine Sulfate 2 mg 05/03/24 14:22 Morphine Sulfate (*Crx) 2 Mg/Ml Inj IV PUSH Q2H PRN Breakthrough Pain Rated 4-6 or NPO Morphine Sulfate 4 mg 05/03/24 14:22 Morphine Sulfate (*Crx) 4 Mg/Ml Inj IV PUSH Q2H PRN Breakthrough Pain Rated 7-10 or NPO Naloxone HCl 0.1 mg 05/03/24 14:22 Naloxone Hcl 0.4 Mg/Ml Vial IV PUSH Q2M PRN Opiate Reversal * Home Med * ( 2 each 05/06/24 20:00 05/09/24 10:25 Breztri [employer]) INHALATION 06/05/24 19:59 Not Given Budes/Glycopyr/ Q12HRT EVER Formot 160 Mcg-9 Mcg -4.8 Mcg Ondansetron HCl 4 mg 05/02/24 10:09 05/02/24 16:02 Ondansetron Inj 4 Mg/2 Ml Vial IV PUSH 4 mg Q6H PRN Administration Nausea And Vomiting Pantoprazole Sodium 40 mg 05/09/24 09:00 05/09/24 10:43 Pantoprazole 40 Mg Tablet PO 40 mg QAM EVER Administration Sodium Bicarbonate 1,300 mg 05/09/24 18:00 Sodium Bicarbonate Tab 650 Mg Tablet PO BIDPC [facility] Sodium Chloride 20 ml 05/03/24 05:52 Central Line Flush IV PUSH PRN PRN after blood draws Tamsulosin HCl 0.4 mg 05/06/24 21:00 05/08/24 20:38 Tamsulosin Hcl 0.4 Mg Capsule PO 0.4 mg QHS EVER Administration Vancomycin HCl 125 mg 05/06/24 06:00 05/09/24 06:28 Vancomycin Hcl 125 Mg Oral Capsule PO 05/16/24 00:01 125 mg Q6HR EVER Administration Radiology Results: ITS Impressions Abdomen X-Ray 05/02/24 06:01 Impression: NG tube in satisfactory position. Suspected small bowel obstruction. Renal Ultrasound 05/02/24 15:30 IMPRESSION: 1. Chronic severe left hydronephrosis. Severe left kidney atrophy. 2. Nonobstructing right kidney stone. Abdomen/Pelvis CT 05/02/24 18:09 IMPRESSION: 1. Small bowel obstruction secondary to a left inguinal hernia containing small bowel. 2. Small volume of ascites. 3. Moderate-sized sliding hiatal hernia. 4. Left kidney stones including a stone in the renal pelvis with chronic severe hydronephrosis and severe kidney atrophy. 5. Nonobstructing right kidney stones. Chest X-Ray 05/06/24 19:38 IMPRESSION: Left basilar consolidation with small bilateral pleural effusions. Labs Labs: Laboratory Results - last 24 hr 05/09/24 08:38 WBC 12.4 H RBC 4.19 L Hgb 11.6 L Hct 37.2 L MCV 88.8 MCH 27.7 MCHC 31.2 L RDW 15.4 H Plt Count 140 L MPV 12.0 H Sodium 137 Potassium 3.9 Chloride 112 H Carbon Dioxide 20 L Anion Gap 5 BUN 40 H Creatinine 1.80 H Estim Creat Clear Calc 34 Estimated GFR 36 L Glucose 109 Calcium 8.6 Magnesium 2.0 Quality VTE Prophylaxis VTE prophylaxis: pharmacologic ordered
[2024-05-09] MEDS: SODIUM BICARBONATE TAB 650 MG TABLET 1300 MG PO (18:20)
[2024-05-09] MEDS: TAMSULOSIN HCL 0.4 MG CAPSULE PO (20:57)
[2024-05-09] MEDS: MAGNESIUM OXIDE 200 MG TABLET PO (20:57)
[2024-05-09] MEDS: LATANOPROST 0.005% OP SOLN 2.5 ML BTL 1 DROP RIGHT EYE (21:01)
--- NOTE | 2024-05-09 21:19 | PCRCNOTE ---
Respiratory therapist entered pt room to give pt his home med inhaler. However, the patients inhaler was not in the room, Pt is on isolation. RT looked for inhaler and could not find it. Patient states that, they lost it , and that the hospital does not carry his home medication, but they carry Trelegy . Patient states that he cannot take Trelegy though. Nurse aware. RT will pass this info along.
--- NOTE | 2024-05-09 22:24 | PC.NURSE ---
patient states his daily home inhaler has been lost between his transfer from IMU to here. room closet checked, drawers in computers checked, med room checked, respiratory called and were unable to find it, IMU called and were unable to find it, warehouse man aware.
[2024-05-10] VITALS (9 sets, daily range): BP systolic 110–143; BP diastolic 45–87; PULSE 75–94; RESP 16–18; TEMP 36.7–37.1; O2SAT 96–100
[2024-05-10] MEDS: VANCOMYCIN HCL 125 MG ORAL CAPSULE PO ×4 (05:03→23:39)
[2024-05-10] MEDS: BRINZOLAMIDE 1% OPHTH SUSP 10 ML 1 DROP EACH EYE ×3 (05:10→21:41)
[2024-05-10] MEDS: BRIMONIDINE TARTRATE 0.2% OP SOLN 5 ML BTL 1 DROP EACH EYE ×3 (05:10→21:41)
[2024-05-10 06:27] LABS: Basophils Percent Auto 0.4 % (0.2-1.2); Eosinophils Absolute Auto 0.3 K/mm3 (0-0.3); Hematocrit 33.1 % (42.0-52.0); Hemoglobin 10.4 g/dL (14.0-18.0); Immature Granulocyte Absolute 0.44 K/mm3 (0.00-0.031); Immature Granulocyte Percent A 4.4 % (0-0.5); Lymphocytes Absolute Auto 0.84 K/mm3 (0.9-3.2); Lymphocytes Percent Auto 8.4 % (18.3-44.2); Mean Corpuscular HGB Conc 31.4 g/dl (32-36); Mean Corpuscular Hemoglobin 27.7 pg (26-34); Mean Platelet Volume 10.4 fl (7.4-10.4); Monocytes Absolute Auto 0.6 K/mm3 (0.1-0.6); Monocytes Percent Auto 5.9 % (2.6-8.5); Neutrophils Absolute Auto 7.8 K/mm3 (1.3-6.7); Neutrophils Percent Auto 77.9 % (45.5-73.1); Platelet Count Result 153 k/mm3 (150-375); Red Blood Count 3.76 M/mm3 (4.6-6.20); Red Cell Distribution Width 15.7 % (11.5-14.5)
[2024-05-10 06:41] LABS: Alanine Aminotransferase 21 U/L (6-50); Albumin Level 2.8 g/dL (3.5-5.1); Alkaline Phosphatase 56 U/L (38-126); Anion Gap 4 mmol/L (4-12); Aspartate Amino Transferase 22 U/L (17-59); Bilirubin,Total 0.7 mg/dL (0.2-1.3); Blood Urea Nitrogen 38 mg/dL (9-20); Calcium 8.4 mg/dL (8.4-10.2); Carbon Dioxide 22 mmol/L (22-30); Chloride 111 mmol/L (98-107); Estimated CRCL calculation 34 ml/min; Estimated Glomerular Filt Rate 36; Glucose 110 mg/dL (65-110); Magnesium 1.9 mg/dL (1.6-2.3); Potassium 3.5 mmol/L (3.4-5.0); Sodium 137 mmol/L (137-145)
--- NOTE | 2024-05-10 07:33 | PM.PNNEP ---
Progress Note: A&P Assessment and Plan (1) Acute on chronic renal failure: Code(s): N17.9 - Acute kidney failure, unspecified; N18.9 - Chronic kidney disease, unspecified Status: Acute Assessment and Plan: Dylan has chronic renal insufficiency. He has one chronic obstructed kidney which is contributing very little to the overall function. Thus he is living off of 1 kidney. This would explain his mildly elevated creatinine at baseline. Baseline creatinine is 1.4-1.6 The patient has acute kidney injury as well. Most likely due to contrast, hypertension, infection, and dehydration. Creatinine has been improving and is now at baseline of about 1.8. Electrolytes are okay. Bicarbonate level is better. Diarrhea is better so I think we can stop the sodium bicarb supplements (2) Atrial fibrillation: Code(s): I48.91 - Unspecified atrial fibrillation Status: Acute Assessment and Plan: Heart rate is 70s to 90s Anticoagulation per surgery (3) SBO (small bowel obstruction): Code(s): K56.609 - Unspecified intestinal obstruction, unspecified as to partial versus complete obstruction Status: Acute Assessment and Plan: He had surgery a few days ago. Doing very well now (4) C. difficile colitis: Code(s): A04.72 - Enterocolitis due to Clostridium difficile, not specified as recurrent Status: Acute Assessment and Plan: Now on oral vancomycin Stools are slowing down (5) Hypernatremia: Code(s): E87.0 - Hyperosmolality and hypernatremia Status: Acute Assessment and Plan: Resolved Subjective Date/time seen: 05/10/24 07:33 Interval history: Dylan feels okay this morning. The FMS is out. He has had 2 bowel movements overnight. He was able to make it to the bedside commode both times. Exam Narrative: WDWN in NAD skin no rash or subQ nodules head ncat lungs fairly clear cor reg no rub or gallop abd BS+ nontender ext trace to 1+ bilateral edema. Objective Data Vital Signs Vital Signs: Vital Signs - 24 hr 05/09/24 08:03 05/09/24 12:02 05/09/24 14:00 Temperature 98.4 F Pulse Rate 91 90 68 Respiratory Rate 16 Blood Pressure 128/53 L Pulse Oximetry 97 Oxygen Delivery 05/09/24 16:02 05/09/24 20:00 05/09/24 20:00 Temperature Pulse Rate 85 91 Respiratory Rate Blood Pressure Pulse Oximetry Oxygen Delivery Room Air 05/09/24 21:00 05/10/24 00:00 05/10/24 04:00 Temperature 97.7 F Pulse Rate 83 75 80 Respiratory Rate 20 Blood Pressure 151/82 H Pulse Oximetry 100 Oxygen Delivery 05/10/24 05:10 Temperature 98.2 F Pulse Rate 87 Respiratory Rate 16 Blood Pressure 143/87 H Pulse Oximetry 96 Oxygen Delivery Intake/Output Intake/Output: Intake & Output 05/07/24 05/08/24 05/09/24 05/10/24 23:59 23:59 23:59 23:59 Intake Total 2390 2420 1390 250 Output Total 1410 2280 1150 450 Balance 980 140 240 -200 Meds/Results Medications: Active Medications Generic Name Dose Route Start Last Admin Trade Name Freq PRN Reason Stop Dose Admin Acetaminophen 650 mg 05/09/24 11:59 Acetaminophen 325 Mg Tablet BY MOUTH Q6H PRN Mild Pain (1-3) or Fever Artificial Tears 1 drop 05/07/24 18:00 05/09/24 18:22 Artificial Tears Ophth Soln 15 Ml Bottle EACH EYE 1 drop TID EVER Administration Ascorbic Acid 1,000 mg 05/07/24 09:00 05/09/24 10:43 Ascorbic Acid 500 Mg Tablet PO 1,000 mg DAILY EVER Administration Atorvastatin Calcium 40 mg 05/07/24 09:00 05/09/24 10:43 Atorvastatin 40 Mg Tablet PO 40 mg QAM EVER Administration Brimonidine Tartrate 1 drop 05/02/24 14:00 05/10/24 05:10 Brimonidine Tartrate 0.2% Op Soln 5 Ml Btl EACH EYE 1 drop Q8HR EVER Administration Brinzolamide 1 drop 05/02/24 14:00 05/10/24 05:10 Brinzolamide 1% Ophth Susp 10 Ml EACH EYE 1 drop Q8HR EVER Administration Cyanocobalamin 1,000 mcg 05/07/24 09:00 05/09/24 10:43 Cyanocobalamin 1,000 Mcg Tablet PO 1,000 mcg DAILY EVER Administration Fluticasone Propionate 1 spray 05/06/24 17:24 Fluticasone Propionate 0.05% Na Spr 16 Gm Btl (*Bkc) NASAL HS PRN nasal congestion Folic Acid 0.8 mg 05/07/24 09:00 05/09/24 10:43 Folic Acid 0.4 Mg Tablet PO 0.8 mg QAM EVER Administration Heparin Sodium (Porcine) 5,000 units 05/08/24 12:35 05/09/24 20:57 Heparin Sodium 5,000 Units/Ml Vial SUB-Q 5,000 units Q12HR EVER Administration Latanoprost 1 drop 05/02/24 21:00 05/09/24 21:01 Latanoprost 0.005% Op Soln 2.5 Ml Btl RIGHT EYE 1 drop HS EVER Administration Magnesium Oxide 200 mg 05/06/24 21:00 05/09/24 20:57 Magnesium Oxide 200 Mg Tablet PO 200 mg HS EVER Administration Morphine Sulfate 2 mg 05/03/24 14:22 Morphine Sulfate (*Crx) 2 Mg/Ml Inj IV PUSH Q2H PRN Breakthrough Pain Rated 4-6 or NPO Morphine Sulfate 4 mg 05/03/24 14:22 Morphine Sulfate (*Crx) 4 Mg/Ml Inj IV PUSH Q2H PRN Breakthrough Pain Rated 7-10 or NPO Naloxone HCl 0.1 mg 05/03/24 14:22 Naloxone Hcl 0.4 Mg/Ml Vial IV PUSH Q2M PRN Opiate Reversal * Home Med * ( 2 each 05/06/24 20:00 05/09/24 20:44 Breztri [employer]) INHALATION 06/05/24 19:59 Not Given Budes/Glycopyr/ Q12HRT EVER Formot 160 Mcg-9 Mcg -4.8 Mcg Ondansetron HCl 4 mg 05/02/24 10:09 05/02/24 16:02 Ondansetron Inj 4 Mg/2 Ml Vial IV PUSH 4 mg Q6H PRN Administration Nausea And Vomiting Pantoprazole Sodium 40 mg 05/09/24 09:00 05/09/24 10:43 Pantoprazole 40 Mg Tablet PO 40 mg QAM EVER Administration Sodium Bicarbonate 1,300 mg 05/09/24 18:00 05/09/24 18:20 Sodium Bicarbonate Tab 650 Mg Tablet PO 1,300 mg BIDPC EVER Administration Sodium Chloride 20 ml 05/03/24 05:52 Central Line Flush IV PUSH PRN PRN after blood draws Tamsulosin HCl 0.4 mg 05/06/24 21:00 05/09/24 20:57 Tamsulosin Hcl 0.4 Mg Capsule PO 0.4 mg QHS EVER Administration Vancomycin HCl 125 mg 05/06/24 06:00 05/10/24 05:03 Vancomycin Hcl 125 Mg Oral Capsule PO 05/16/24 00:01 125 mg Q6HR EVER Administration Radiology Results: ITS Impressions Abdomen X-Ray 05/02/24 06:01 Impression: NG tube in satisfactory position. Suspected small bowel obstruction. Renal Ultrasound 05/02/24 15:30 IMPRESSION: 1. Chronic severe left hydronephrosis. Severe left kidney atrophy. 2. Nonobstructing right kidney stone. Abdomen/Pelvis CT 05/02/24 18:09 IMPRESSION: 1. Small bowel obstruction secondary to a left inguinal hernia containing small bowel. 2. Small volume of ascites. 3. Moderate-sized sliding hiatal hernia. 4. Left kidney stones including a stone in the renal pelvis with chronic severe hydronephrosis and severe kidney atrophy. 5. Nonobstructing right kidney stones. Chest X-Ray 05/06/24 19:38 IMPRESSION: Left basilar consolidation with small bilateral pleural effusions. Labs Labs: Laboratory Results - last 24 hr 05/09/24 05/10/24 08:38 06:22 WBC 12.4 H 10.0 RBC 4.19 L 3.76 L Hgb 11.6 L 10.4 L Hct 37.2 L 33.1 L MCV 88.8 88.0 MCH 27.7 27.7 MCHC 31.2 L 31.4 L RDW 15.4 H 15.7 H Plt Count 140 L 153 MPV 12.0 H 10.4 Immature Gran % (Auto) 4.4 H Neut % (Auto) 77.9 H Lymph % (Auto) 8.4 L [place] % (Auto) 5.9 Eos % (Auto) 3.0 Baso % (Auto) 0.4 Lymph # (Auto) 0.84 L [place] # (Auto) 0.6 Eos # (Auto) 0.3 Baso # (Auto) 0.0 Abs Immat Gran (auto) 0.44 H Absolute Neuts (auto) 7.8 H Absolute Nucleated RBC 0.000 Nucleated RBC % 0.0 Sodium 137 137 Potassium 3.9 3.5 Chloride 112 H 111 H Carbon Dioxide 20 L 22 Anion Gap 5 4 BUN 40 H 38 H Creatinine 1.80 H 1.80 H Estim Creat Clear Calc 34 34 Estimated GFR 36 L 36 L Glucose 109 110 Calcium 8.6 8.4 Magnesium 2.0 1.9 Total Bilirubin 0.7 AST 22 ALT 21 Alkaline Phosphatase 56 Total Protein 5.0 L Albumin 2.8 L
[2024-05-10] MEDS: HEPARIN SODIUM 5,000 UNITS/ML VIAL 5000 UNITS SUB-Q ×2 (10:34→21:41)
[2024-05-10] MEDS: FOLIC ACID 0.4 MG TABLET 0.8 MG PO (10:34)
[2024-05-10] MEDS: CYANOCOBALAMIN 1,000 MCG TABLET 1000 MCG PO (10:34)
[2024-05-10] MEDS: ASCORBIC ACID 500 MG TABLET 1000 MG PO (10:34)
[2024-05-10] MEDS: ATORVASTATIN 40 MG TABLET PO (10:34)
[2024-05-10] MEDS: PANTOPRAZOLE 40 MG TABLET PO (10:34)
[2024-05-10] MEDS: ARTIFICIAL TEARS OPHTH SOLN 15 ML BOTTLE 1 DROP EACH EYE ×3 (10:35→18:46)
--- NOTE | 2024-05-10 15:16 | P.PNIM_ITS ---
Progress Note: A&P Assessment and Plan (1) Shock: Code(s): R57.9 - Shock, unspecified Status: Resolved Assessment and Plan: S/p IVF and pressors Intially on Cefepime, Flagyl and Vancomycin, now transitioned to PO Vanc septis from C diff thus patient on PO Vanc now Blood cultures negative (2) C. difficile colitis: Code(s): A04.72 - Enterocolitis due to Clostridium difficile, not specified as recurrent Status: Acute Assessment and Plan: On PO Vanc Off FMS monitor one more day (3) Hypokalemia: Code(s): E87.6 - Hypokalemia Status: Resolved Assessment and Plan: * Potassium 3.1 * 40 mEq of potassium given 05/08/24: * Stable Potassium now at 3.7. (4) SBO (small bowel obstruction): Code(s): K56.609 - Unspecified intestinal obstruction, unspecified as to partial versus complete obstruction Status: Acute Assessment and Plan: * S/P open incarcerated left inguinal hernia repair with mesh, no bowel ischemia noted * now tolerating diet SUrgery following (5) Atrial fibrillation: Code(s): I48.91 - Unspecified atrial fibrillation Status: Acute Assessment and Plan: * Patient went into AFib 05/03. Rate controlled. * Echo showing EF 50-55%, abnormal diastolic fxn, possible PFO and mild valvular disease. * Cardiology following * Monitor on tele for now. * WIll clarify from surgery about starting OAC (6) Incarcerated left inguinal hernia: Code(s): K40.30 - Unilateral inguinal hernia, with obstruction, without gangrene, not specified as recurrent Status: Acute Assessment and Plan: As above (7) Acute on chronic renal failure: Code(s): N17.9 - Acute kidney failure, unspecified; N18.9 - Chronic kidney disease, unspecified Status: Acute Assessment and Plan: * Creatinine 2.0, improving * Nephrology following * Avoid nephrotoxic medication or testing with IV contrast * Continue fluid restriction * Will remove beasley today 05/08/24: * Creatinine continues to improve and is currently 1.7 today. * Creatinine appears to be at baseline (8) Obstructive uropathy: Code(s): N13.9 - Obstructive and reflux uropathy, unspecified Status: Acute Assessment and Plan: * CT Abd/Pelvis 05/02 shows multiple nonobstructing right renal stones, markedly enlarged left kidney with marked, severe chronic hydronephrosis and severe diffuse cortical thinning. There is a large, presumably chronically obstructing stone at the left renal pelvis region measuring 3.0 x 2.0 cm in size. Additional smaller nonobstructing left renal stones are also present. * Renal US showing chronic severe left hydronephrosis and severe left kidney atrophy * UA is not consistent with UTI. * Known finding per patient hx. 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 * [place] this is an incidental finding and not contributing to his current illness * Urology felt the right renal stones should be treated and will arrange for this as outpatient. 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, unspecified Status: Acute Assessment and Plan: * History of PFO * Continue Breztri Plan DVT prophylaxis on Sq Lovenox Subjective Date/time seen: 05/10/24 15:16 Interval history: Patient comfortable at bedside oFF FMS however noted he having multiple bowel movement will monitor one more day Review of Systems Review of Systems: All systems reviewed & are unremarkable except as noted in HPI and below Exam Narrative: General: In no acute distress, well nourished Head: atraumatic, no encephalopathy Eyes: PERRLA, sclera clear ENT: moist mucous membranes, nasal passages clear Neck: supple, no JVD, no adenopathy, trachea midline Cardiac: Irregular rhythm of Atrial Fibrillation. No murmur, gallops or friction rubs, peripheral pulses intact. Respiratory: Lungs clear to auscultation, no adventitious lung sounds, currently on room air Gastrointestinal: soft, non-distended, non-tender, normoactive bowel sounds. Fecal management system in place : voiding without difficulty per daijack. Extremities: moves all extremities well, no edema, good ROM, strength 5/5 Skin: clean, dry, intact. Surgical dressing midline without shadowing. Neuro: Alert and oriented x4, cranial nerves intact, no neuro deficits. Psych: normal mood, normal affect, interactive Objective Data Vital Signs Vital Signs: Vital Signs - 24 hr 05/09/24 16:02 05/09/24 20:00 05/09/24 20:00 Temperature Pulse Rate 85 91 Respiratory Rate Blood Pressure Pulse Oximetry Oxygen Delivery Room Air 05/09/24 21:00 05/10/24 00:00 05/10/24 04:00 Temperature 97.7 F Pulse Rate 83 75 80 Respiratory Rate 20 Blood Pressure 151/82 H Pulse Oximetry 100 Oxygen Delivery 05/10/24 05:10 Temperature 98.2 F Pulse Rate 87 Respiratory Rate 16 Blood Pressure 143/87 H Pulse Oximetry 96 Oxygen Delivery Intake/Output Intake/Output: Intake & Output 05/07/24 05/08/24 05/09/24 05/10/24 23:59 23:59 23:59 23:59 Intake Total 2390 2420 1390 490 Output Total 1410 2280 1150 450 Balance 980 140 240 40 Meds/Results Medications: Active Medications Generic Name Dose Route Start Last Admin Trade Name Freq PRN Reason Stop Dose Admin Acetaminophen 650 mg 05/09/24 11:59 Acetaminophen 325 Mg Tablet BY MOUTH Q6H PRN Mild Pain (1-3) or Fever Artificial Tears 1 drop 05/07/24 18:00 05/10/24 10:35 Artificial Tears Ophth Soln 15 Ml Bottle EACH EYE 1 drop TID EVER Administration Ascorbic Acid 1,000 mg 05/07/24 09:00 05/10/24 10:34 Ascorbic Acid 500 Mg Tablet PO 1,000 mg DAILY EVER Administration Atorvastatin Calcium 40 mg 05/07/24 09:00 05/10/24 10:34 Atorvastatin 40 Mg Tablet PO 40 mg QAM EVER Administration Brimonidine Tartrate 1 drop 05/02/24 14:00 05/10/24 05:10 Brimonidine Tartrate 0.2% Op Soln 5 Ml Btl EACH EYE 1 drop Q8HR EVER Administration Brinzolamide 1 drop 05/02/24 14:00 05/10/24 05:10 Brinzolamide 1% Ophth Susp 10 Ml EACH EYE 1 drop Q8HR EVER Administration Cyanocobalamin 1,000 mcg 05/07/24 09:00 05/10/24 10:34 Cyanocobalamin 1,000 Mcg Tablet PO 1,000 mcg DAILY EVER Administration Fluticasone Propionate 1 spray 05/06/24 17:24 Fluticasone Propionate 0.05% Na Spr 16 Gm Btl (*Bkc) NASAL HS PRN nasal congestion Folic Acid 0.8 mg 05/07/24 09:00 05/10/24 10:34 Folic Acid 0.4 Mg Tablet PO 0.8 mg QAM EVER Administration Heparin Sodium (Porcine) 5,000 units 05/08/24 12:35 05/10/24 10:34 Heparin Sodium 5,000 Units/Ml Vial SUB-Q 5,000 units Q12HR EVER Administration Latanoprost 1 drop 05/02/24 21:00 05/09/24 21:01 Latanoprost 0.005% Op Soln 2.5 Ml Btl RIGHT EYE 1 drop HS EVER Administration Magnesium Oxide 200 mg 05/06/24 21:00 05/09/24 20:57 Magnesium Oxide 200 Mg Tablet PO 200 mg HS EVER Administration Morphine Sulfate 2 mg 05/03/24 14:22 Morphine Sulfate (*Crx) 2 Mg/Ml Inj IV PUSH Q2H PRN Breakthrough Pain Rated 4-6 or NPO Morphine Sulfate 4 mg 05/03/24 14:22 Morphine Sulfate (*Crx) 4 Mg/Ml Inj IV PUSH Q2H PRN Breakthrough Pain Rated 7-10 or NPO Naloxone HCl 0.1 mg 05/03/24 14:22 Naloxone Hcl 0.4 Mg/Ml Vial IV PUSH Q2M PRN Opiate Reversal * Home Med * ( 2 each 05/06/24 20:00 05/10/24 09:34 Breztri Aerosphere) INHALATION 06/05/24 19:59 Not Given Budes/Glycopyr/ Q12HRT EVER Formot 160 Mcg-9 Mcg -4.8 Mcg Ondansetron HCl 4 mg 05/02/24 10:09 05/02/24 16:02 Ondansetron Inj 4 Mg/2 Ml Vial IV PUSH 4 mg Q6H PRN Administration Nausea And Vomiting Pantoprazole Sodium 40 mg 05/09/24 09:00 05/10/24 10:34 Pantoprazole 40 Mg Tablet PO 40 mg QAM EVER Administration Sodium Chloride 20 ml 05/03/24 05:52 Central Line Flush IV PUSH PRN PRN after blood draws Tamsulosin HCl 0.4 mg 05/06/24 21:00 05/09/24 20:57 Tamsulosin Hcl 0.4 Mg Capsule PO 0.4 mg QHS EVER Administration Vancomycin HCl 125 mg 05/06/24 06:00 05/10/24 13:08 Vancomycin Hcl 125 Mg Oral Capsule PO 05/16/24 00:01 125 mg Q6HR EVER Administration Radiology Results: ITS Impressions Abdomen X-Ray 05/02/24 06:01 Impression: NG tube in satisfactory position. Suspected small bowel obstruction. Renal Ultrasound 05/02/24 15:30 IMPRESSION: 1. Chronic severe left hydronephrosis. Severe left kidney atrophy. 2. Nonobstructing right kidney stone. Abdomen/Pelvis CT 05/02/24 18:09 IMPRESSION: 1. Small bowel obstruction secondary to a left inguinal hernia containing small bowel. 2. Small volume of ascites. 3. Moderate-sized sliding hiatal hernia. 4. Left kidney stones including a stone in the renal pelvis with chronic severe hydronephrosis and severe kidney atrophy. 5. Nonobstructing right kidney stones. Chest X-Ray 05/06/24 19:38 IMPRESSION: Left basilar consolidation with small bilateral pleural effusions. Labs Labs: Laboratory Results - last 24 hr 05/10/24 06:22 WBC 10.0 RBC 3.76 L Hgb 10.4 L Hct 33.1 L MCV 88.0 MCH 27.7 MCHC 31.4 L RDW 15.7 H Plt Count 153 MPV 10.4 Immature Gran % (Auto) 4.4 H Neut % (Auto) 77.9 H Lymph % (Auto) 8.4 L [place] % (Auto) 5.9 Eos % (Auto) 3.0 Baso % (Auto) 0.4 Lymph # (Auto) 0.84 L [place] # (Auto) 0.6 Eos # (Auto) 0.3 Baso # (Auto) 0.0 Abs Immat Gran (auto) 0.44 H Absolute Neuts (auto) 7.8 H Absolute Nucleated RBC 0.000 Nucleated RBC % 0.0 Sodium 137 Potassium 3.5 Chloride 111 H Carbon Dioxide 22 Anion Gap 4 BUN 38 H Creatinine 1.80 H Estim Creat Clear Calc 34 Estimated GFR 36 L Glucose 110 Calcium 8.4 Magnesium 1.9 Total Bilirubin 0.7 AST 22 ALT 21 Alkaline Phosphatase 56 Total Protein 5.0 L Albumin 2.8 L Quality VTE Prophylaxis VTE prophylaxis: pharmacologic ordered
[2024-05-10] MEDS: MAGNESIUM OXIDE 200 MG TABLET PO (21:41)
[2024-05-10] MEDS: LATANOPROST 0.005% OP SOLN 2.5 ML BTL 1 DROP RIGHT EYE (21:41)
[2024-05-10] MEDS: TAMSULOSIN HCL 0.4 MG CAPSULE PO (21:41)
--- NOTE | 2024-05-10 22:33 | PC.NURSE ---
loretta inhaler still missing. called pharmacy who check the tube system as well as the inhaler waste bin, and they stated pt's inhaler was not there
[2024-05-11] VITALS (9 sets, daily range): BP systolic 117–132; BP diastolic 64–73; PULSE 72–101; RESP 18–20; TEMP 36.7–36.8; O2SAT 98–100
[2024-05-11 06:59] LABS: Anion Gap 4 mmol/L (4-12); Blood Urea Nitrogen 36 mg/dL (9-20); Calcium 8.3 mg/dL (8.4-10.2); Carbon Dioxide 20 mmol/L (22-30); Chloride 112 mmol/L (98-107); Estimated CRCL calculation 36 ml/min; Estimated Glomerular Filt Rate 39; Glucose 102 mg/dL (65-110); Potassium 3.5 mmol/L (3.4-5.0); Sodium 136 mmol/L (137-145)
[2024-05-11] MEDS: BRIMONIDINE TARTRATE 0.2% OP SOLN 5 ML BTL 1 DROP EACH EYE ×3 (07:02→21:14)
[2024-05-11] MEDS: VANCOMYCIN HCL 125 MG ORAL CAPSULE PO ×4 (07:03→23:10)
[2024-05-11] MEDS: BRINZOLAMIDE 1% OPHTH SUSP 10 ML 1 DROP EACH EYE ×3 (07:03→21:14)
[2024-05-11] MEDS: ARTIFICIAL TEARS OPHTH SOLN 15 ML BOTTLE 1 DROP EACH EYE ×3 (08:43→17:57)
[2024-05-11] MEDS: PANTOPRAZOLE 40 MG TABLET PO (08:44)
[2024-05-11] MEDS: CYANOCOBALAMIN 1,000 MCG TABLET 1000 MCG PO (08:44)
[2024-05-11] MEDS: ASCORBIC ACID 500 MG TABLET 1000 MG PO (08:44)
[2024-05-11] MEDS: FOLIC ACID 0.4 MG TABLET 0.8 MG PO (08:44)
[2024-05-11] MEDS: HEPARIN SODIUM 5,000 UNITS/ML VIAL 5000 UNITS SUB-Q ×2 (08:44→21:13)
[2024-05-11] MEDS: ATORVASTATIN 40 MG TABLET PO (08:48)
--- NOTE | 2024-05-11 11:32 | P.PNIM_ITS ---
Progress Note: A&P Assessment and Plan (1) Shock: Code(s): R57.9 - Shock, unspecified Status: Resolved Assessment and Plan: S/p IVF and pressors Intially on Cefepime, Flagyl and Vancomycin, now transitioned to PO Vanc sepsis from C diff thus patient on PO Vanc now Blood cultures negative (2) C. difficile colitis: Code(s): A04.72 - Enterocolitis due to Clostridium difficile, not specified as recurrent Status: Acute Assessment and Plan: On PO Vanc Off FMS Diarrhea improving monitor one more day (3) Hypokalemia: Code(s): E87.6 - Hypokalemia Status: Resolved Assessment and Plan: * Potassium 3.1 * 40 mEq of potassium given 05/08/24: * Stable Potassium now at 3.7. (4) SBO (small bowel obstruction): Code(s): K56.609 - Unspecified intestinal obstruction, unspecified as to partial versus complete obstruction Status: Acute Assessment and Plan: * S/P open incarcerated left inguinal hernia repair with mesh, no bowel ischemia noted * now tolerating diet SUrgery following (5) Atrial fibrillation: Code(s): I48.91 - Unspecified atrial fibrillation Status: Acute Assessment and Plan: * Patient went into AFib 05/03. Rate controlled. * Echo showing EF 50-55%, abnormal diastolic fxn, possible PFO and mild valvular disease. * Cardiology following * Monitor on tele for now. * WIll clarify from surgery about starting OAC (6) Incarcerated left inguinal hernia: Code(s): K40.30 - Unilateral inguinal hernia, with obstruction, without gangrene, not specified as recurrent Status: Acute Assessment and Plan: As above (7) Acute on chronic renal failure: Code(s): N17.9 - Acute kidney failure, unspecified; N18.9 - Chronic kidney disease, unspecified Status: Acute Assessment and Plan: * Creatinine 2.0, improving * Nephrology following * Avoid nephrotoxic medication or testing with IV contrast * Continue fluid restriction * Will remove beasley today 05/08/24: * Creatinine continues to improve and is currently 1.7 today. * Creatinine appears to be at baseline (8) Obstructive uropathy: Code(s): N13.9 - Obstructive and reflux uropathy, unspecified Status: Acute Assessment and Plan: * CT Abd/Pelvis 05/02 shows multiple nonobstructing right renal stones, markedly enlarged left kidney with marked, severe chronic hydronephrosis and severe diffuse cortical thinning. There is a large, presumably chronically obstructing stone at the left renal pelvis region measuring 3.0 x 2.0 cm in size. Additional smaller nonobstructing left renal stones are also present. * Renal US showing chronic severe left hydronephrosis and severe left kidney atrophy * UA is not consistent with UTI. * Known finding per patient hx. 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 * [place] this is an incidental finding and not contributing to his current illness * Urology felt the right renal stones should be treated and will arrange for this as outpatient. 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, unspecified Status: Acute Assessment and Plan: * History of PFO * Continue Breztri Plan DVT prophylaxis on Sq Lovenox Awaiting placement Subjective Date/time seen: 05/11/24 11:32 Interval history: Patient comfortable at bedside diarrhea improving awaiting placement Review of Systems Review of Systems: All systems reviewed & are unremarkable except as noted in HPI and below Exam Narrative: General: In no acute distress, well nourished Head: atraumatic, no encephalopathy Eyes: PERRLA, sclera clear ENT: moist mucous membranes, nasal passages clear Neck: supple, no JVD, no adenopathy, trachea midline Cardiac: Irregular rhythm of Atrial Fibrillation. No murmur, gallops or friction rubs, peripheral pulses intact. Respiratory: Lungs clear to auscultation, no adventitious lung sounds, currently on room air Gastrointestinal: soft, non-distended, non-tender, normoactive bowel sounds. Fecal management system in place : voiding without difficulty per [place]. Extremities: moves all extremities well, no edema, good ROM, strength 5/5 Skin: clean, dry, intact. Surgical dressing midline without shadowing. Neuro: Alert and oriented x4, cranial nerves intact, no neuro deficits. Psych: normal mood, normal affect, interactive Objective Data Vital Signs Vital Signs: Vital Signs - 24 hr 05/10/24 12:02 05/10/24 14:00 05/10/24 16:02 Temperature 98.1 F Pulse Rate 87 86 94 Respiratory Rate 18 Blood Pressure 110/45 L Pulse Oximetry 100 Oxygen Delivery 05/10/24 20:00 05/10/24 20:00 05/10/24 21:10 Temperature 98.8 F Pulse Rate 92 93 Respiratory Rate 18 Blood Pressure 114/70 Pulse Oximetry 98 Oxygen Delivery Room Air 05/11/24 00:00 05/11/24 04:00 05/11/24 05:55 Temperature 98.2 F Pulse Rate 72 81 88 Respiratory Rate 20 Blood Pressure 131/71 Pulse Oximetry 98 Oxygen Delivery Intake/Output Intake/Output: Intake & Output 05/08/24 05/09/24 05/10/24 05/11/24 23:59 23:59 23:59 23:59 Intake Total 2420 1390 1280 750 Output Total 2280 1150 450 475 Balance 140 240 830 275 Meds/Results Medications: Active Medications Generic Name Dose Route Start Last Admin Trade Name Freq PRN Reason Stop Dose Admin Acetaminophen 650 mg 05/09/24 11:59 Acetaminophen 325 Mg Tablet BY MOUTH Q6H PRN Mild Pain (1-3) or Fever Artificial Tears 1 drop 05/07/24 18:00 05/11/24 08:43 Artificial Tears Ophth Soln 15 Ml Bottle EACH EYE 1 drop TID EVER Administration Ascorbic Acid 1,000 mg 05/07/24 09:00 05/11/24 08:44 Ascorbic Acid 500 Mg Tablet PO 1,000 mg DAILY EVER Administration Atorvastatin Calcium 40 mg 05/07/24 09:00 05/11/24 08:48 Atorvastatin 40 Mg Tablet PO 40 mg QAM EVER Administration Brimonidine Tartrate 1 drop 05/02/24 14:00 05/11/24 07:02 Brimonidine Tartrate 0.2% Op Soln 5 Ml Btl EACH EYE 1 drop Q8HR EVER Administration Brinzolamide 1 drop 05/02/24 14:00 05/11/24 07:03 Brinzolamide 1% Ophth Susp 10 Ml EACH EYE 1 drop Q8HR EVER Administration Cyanocobalamin 1,000 mcg 05/07/24 09:00 05/11/24 08:44 Cyanocobalamin 1,000 Mcg Tablet PO 1,000 mcg DAILY EVER Administration Fluticasone Propionate 1 spray 05/06/24 17:24 Fluticasone Propionate 0.05% Na Spr 16 Gm Btl (*Bkc) NASAL HS PRN nasal congestion Fluticasone/Umeclidinium/Vilanterol 1 puff 05/11/24 08:00 05/11/24 09:11 Fluticasone/Umeclidin/Vilanter 100-62.5-25 Mcg Ellipta INHALATION Not Given DAILYRT EVER Folic Acid 0.8 mg 05/07/24 09:00 05/11/24 08:44 Folic Acid 0.4 Mg Tablet PO 0.8 mg QAM EVER Administration Heparin Sodium (Porcine) 5,000 units 05/08/24 12:35 05/11/24 08:44 Heparin Sodium 5,000 Units/Ml Vial SUB-Q 5,000 units Q12HR EVER Administration Latanoprost 1 drop 05/02/24 21:00 05/10/24 21:41 Latanoprost 0.005% Op Soln 2.5 Ml Btl RIGHT EYE 1 drop HS EVER Administration Magnesium Oxide 200 mg 05/06/24 21:00 05/10/24 21:41 Magnesium Oxide 200 Mg Tablet PO 200 mg HS EVER Administration Morphine Sulfate 2 mg 05/03/24 14:22 Morphine Sulfate (*Crx) 2 Mg/Ml Inj IV PUSH Q2H PRN Breakthrough Pain Rated 4-6 or NPO Morphine Sulfate 4 mg 05/03/24 14:22 Morphine Sulfate (*Crx) 4 Mg/Ml Inj IV PUSH Q2H PRN Breakthrough Pain Rated 7-10 or NPO Naloxone HCl 0.1 mg 05/03/24 14:22 Naloxone Hcl 0.4 Mg/Ml Vial IV PUSH Q2M PRN Opiate Reversal * Home Med * ( 2 each 05/06/24 20:00 05/11/24 09:10 Breztri Aerosphere) INHALATION 06/05/24 19:59 Not Given Budes/Glycopyr/ Q12HRT EVER Formot 160 Mcg-9 Mcg -4.8 Mcg Ondansetron HCl 4 mg 05/02/24 10:09 05/02/24 16:02 Ondansetron Inj 4 Mg/2 Ml Vial IV PUSH 4 mg Q6H PRN Administration Nausea And Vomiting Pantoprazole Sodium 40 mg 05/09/24 09:00 05/11/24 08:44 Pantoprazole 40 Mg Tablet PO 40 mg QAM EVER Administration Sodium Chloride 20 ml 05/03/24 05:52 Central Line Flush IV PUSH PRN PRN after blood draws Tamsulosin HCl 0.4 mg 05/06/24 21:00 05/10/24 21:41 Tamsulosin Hcl 0.4 Mg Capsule PO 0.4 mg QHS EVER Administration Vancomycin HCl 125 mg 05/06/24 06:00 05/11/24 07:03 Vancomycin Hcl 125 Mg Oral Capsule PO 05/16/24 00:01 125 mg Q6HR EVER Administration Radiology Results: ITS Impressions Abdomen X-Ray 05/02/24 06:01 Impression: NG tube in satisfactory position. Suspected small bowel obstruction. Renal Ultrasound 05/02/24 15:30 IMPRESSION: 1. Chronic severe left hydronephrosis. Severe left kidney atrophy. 2. Nonobstructing right kidney stone. Abdomen/Pelvis CT 05/02/24 18:09 IMPRESSION: 1. Small bowel obstruction secondary to a left inguinal hernia containing small bowel. 2. Small volume of ascites. 3. Moderate-sized sliding hiatal hernia. 4. Left kidney stones including a stone in the renal pelvis with chronic severe hydronephrosis and severe kidney atrophy. 5. Nonobstructing right kidney stones. Chest X-Ray 05/06/24 19:38 IMPRESSION: Left basilar consolidation with small bilateral pleural effusions. Labs Labs: Laboratory Results - last 24 hr 05/11/24 05:52 Sodium 136 L Potassium 3.5 Chloride 112 H Carbon Dioxide 20 L Anion Gap 4 BUN 36 H Creatinine 1.70 H Estim Creat Clear Calc 36 Estimated GFR 39 L Glucose 102 Calcium 8.3 L Quality VTE Prophylaxis VTE prophylaxis: pharmacologic ordered
--- NOTE | 2024-05-11 14:33 | PM.PNNEP ---
Progress Note: A&P Assessment and Plan (1) Acute on chronic renal failure: Code(s): N17.9 - Acute kidney failure, unspecified; N18.9 - Chronic kidney disease, unspecified Status: Acute Assessment and Plan: Dylan has chronic renal insufficiency. He has one chronic obstructed kidney which is contributing very little to the overall function. Thus he is living off of 1 kidney. This would explain his mildly elevated creatinine at baseline. Baseline creatinine is 1.4-1.6 The patient has acute kidney injury as well. Most likely due to contrast, hypertension, infection, and dehydration. creatinine is stable and is just about at baseline (2) Atrial fibrillation: Code(s): I48.91 - Unspecified atrial fibrillation Status: Acute Assessment and Plan: Heart rate is 70s to 90s Anticoagulation per surgery (3) SBO (small bowel obstruction): Code(s): K56.609 - Unspecified intestinal obstruction, unspecified as to partial versus complete obstruction Status: Acute Assessment and Plan: He had surgery a few days ago. eating well. (4) C. difficile colitis: Code(s): A04.72 - Enterocolitis due to Clostridium difficile, not specified as recurrent Status: Acute Assessment and Plan: Now on oral vancomycin Stools are Firming up (5) Hypernatremia: Code(s): E87.0 - Hyperosmolality and hypernatremia Status: Acute Assessment and Plan: Resolved Subjective Date/time seen: 05/11/24 14:33 Interval history: Alert. Having bowel movements. Stools are starting to firm up Exam Narrative: WDWN in NAD skin no rash or subQ nodules head ncat lungs fairly clear cor reg no rub or gallop abd BS+ nontender ext trace to 1+ bilateral edema. Objective Data Vital Signs Vital Signs: Vital Signs - 24 hr 05/10/24 16:02 05/10/24 20:00 05/10/24 20:00 Temperature Pulse Rate 94 92 Respiratory Rate Blood Pressure Pulse Oximetry Oxygen Delivery Room Air 05/10/24 21:10 05/11/24 00:00 05/11/24 04:00 Temperature 98.8 F Pulse Rate 93 72 81 Respiratory Rate 18 Blood Pressure 114/70 Pulse Oximetry 98 Oxygen Delivery 05/11/24 05:55 05/11/24 14:00 Temperature 98.2 F 98.1 F Pulse Rate 88 101 H Respiratory Rate 20 18 Blood Pressure 131/71 117/64 Pulse Oximetry 98 98 Oxygen Delivery Intake/Output Intake/Output: Intake & Output 05/08/24 05/09/24 05/10/24 05/11/24 23:59 23:59 23:59 23:59 Intake Total 2420 1390 1280 1310 Output Total 2280 1150 450 675 Balance 140 240 830 635 Meds/Results Medications: Active Medications Generic Name Dose Route Start Last Admin Trade Name Freq PRN Reason Stop Dose Admin Acetaminophen 650 mg 05/09/24 11:59 Acetaminophen 325 Mg Tablet BY MOUTH Q6H PRN Mild Pain (1-3) or Fever Artificial Tears 1 drop 05/07/24 18:00 05/11/24 13:03 Artificial Tears Ophth Soln 15 Ml Bottle EACH EYE 1 drop TID EVER Administration Ascorbic Acid 1,000 mg 05/07/24 09:00 05/11/24 08:44 Ascorbic Acid 500 Mg Tablet PO 1,000 mg DAILY EVER Administration Atorvastatin Calcium 40 mg 05/07/24 09:00 05/11/24 08:48 Atorvastatin 40 Mg Tablet PO 40 mg QAM EVER Administration Brimonidine Tartrate 1 drop 05/02/24 14:00 05/11/24 07:02 Brimonidine Tartrate 0.2% Op Soln 5 Ml Btl EACH EYE 1 drop Q8HR EVER Administration Brinzolamide 1 drop 05/02/24 14:00 05/11/24 07:03 Brinzolamide 1% Ophth Susp 10 Ml EACH EYE 1 drop Q8HR EVER Administration Cyanocobalamin 1,000 mcg 05/07/24 09:00 05/11/24 08:44 Cyanocobalamin 1,000 Mcg Tablet PO 1,000 mcg DAILY EVER Administration Fluticasone Propionate 1 spray 05/06/24 17:24 Fluticasone Propionate 0.05% Na Spr 16 Gm Btl (*Bkc) NASAL HS PRN nasal congestion Fluticasone/Umeclidinium/Vilanterol 1 puff 05/11/24 08:00 05/11/24 09:11 Fluticasone/Umeclidin/Vilanter 100-62.5-25 Mcg Ellipta INHALATION Not Given DAILYRT EVER Folic Acid 0.8 mg 05/07/24 09:00 05/11/24 08:44 Folic Acid 0.4 Mg Tablet PO 0.8 mg QAM EVER Administration Heparin Sodium (Porcine) 5,000 units 05/08/24 12:35 05/11/24 08:44 Heparin Sodium 5,000 Units/Ml Vial SUB-Q 5,000 units Q12HR EVER Administration Latanoprost 1 drop 05/02/24 21:00 05/10/24 21:41 Latanoprost 0.005% Op Soln 2.5 Ml Btl RIGHT EYE 1 drop HS EVER Administration Magnesium Oxide 200 mg 05/06/24 21:00 05/10/24 21:41 Magnesium Oxide 200 Mg Tablet PO 200 mg HS EVER Administration Morphine Sulfate 2 mg 05/03/24 14:22 Morphine Sulfate (*Crx) 2 Mg/Ml Inj IV PUSH Q2H PRN Breakthrough Pain Rated 4-6 or NPO Morphine Sulfate 4 mg 05/03/24 14:22 Morphine Sulfate (*Crx) 4 Mg/Ml Inj IV PUSH Q2H PRN Breakthrough Pain Rated 7-10 or NPO Naloxone HCl 0.1 mg 05/03/24 14:22 Naloxone Hcl 0.4 Mg/Ml Vial IV PUSH Q2M PRN Opiate Reversal * Home Med * ( 2 each 05/06/24 20:00 05/11/24 09:10 Breztri Aerosphere) INHALATION 06/05/24 19:59 Not Given Budes/Glycopyr/ Q12HRT [facility] Formot 160 Mcg-9 Mcg -4.8 Mcg Ondansetron HCl 4 mg 05/02/24 10:09 05/02/24 16:02 Ondansetron Inj 4 Mg/2 Ml Vial IV PUSH 4 mg Q6H PRN Administration Nausea And Vomiting Pantoprazole Sodium 40 mg 05/09/24 09:00 05/11/24 08:44 Pantoprazole 40 Mg Tablet PO 40 mg QAM EVER Administration Sodium Chloride 20 ml 05/03/24 05:52 Central Line Flush IV PUSH PRN PRN after blood draws Tamsulosin HCl 0.4 mg 05/06/24 21:00 05/10/24 21:41 Tamsulosin Hcl 0.4 Mg Capsule PO 0.4 mg QHS EVER Administration Vancomycin HCl 125 mg 05/06/24 06:00 05/11/24 12:55 Vancomycin Hcl 125 Mg Oral Capsule PO 05/16/24 00:01 125 mg Q6HR EVER Administration Radiology Results: ITS Impressions Abdomen X-Ray 05/02/24 06:01 Impression: NG tube in satisfactory position. Suspected small bowel obstruction. Renal Ultrasound 05/02/24 15:30 IMPRESSION: 1. Chronic severe left hydronephrosis. Severe left kidney atrophy. 2. Nonobstructing right kidney stone. Abdomen/Pelvis CT 05/02/24 18:09 IMPRESSION: 1. Small bowel obstruction secondary to a left inguinal hernia containing small bowel. 2. Small volume of ascites. 3. Moderate-sized sliding hiatal hernia. 4. Left kidney stones including a stone in the renal pelvis with chronic severe hydronephrosis and severe kidney atrophy. 5. Nonobstructing right kidney stones. Chest X-Ray 05/06/24 19:38 IMPRESSION: Left basilar consolidation with small bilateral pleural effusions. Labs Labs: Laboratory Results - last 24 hr 05/11/24 05:52 Sodium 136 L Potassium 3.5 Chloride 112 H Carbon Dioxide 20 L Anion Gap 4 BUN 36 H Creatinine 1.70 H Estim Creat Clear Calc 36 Estimated GFR 39 L Glucose 102 Calcium 8.3 L
[2024-05-11] MEDS: MAGNESIUM OXIDE 200 MG TABLET PO (21:12)
[2024-05-11] MEDS: TAMSULOSIN HCL 0.4 MG CAPSULE PO (21:13)
[2024-05-11] MEDS: LATANOPROST 0.005% OP SOLN 2.5 ML BTL 1 DROP RIGHT EYE (21:14)
[2024-05-12] VITALS: PULSE 77
[2024-05-12 04:00] VITALS: PULSE 80
[2024-05-12] MEDS: VANCOMYCIN HCL 125 MG ORAL CAPSULE PO ×4 (05:01→22:56)
[2024-05-12] MEDS: BRIMONIDINE TARTRATE 0.2% OP SOLN 5 ML BTL 1 DROP EACH EYE ×3 (05:02→20:55)
[2024-05-12] MEDS: BRINZOLAMIDE 1% OPHTH SUSP 10 ML 1 DROP EACH EYE ×3 (05:02→20:56)
[2024-05-12 06:00] VITALS: BP 118/73; PULSE 83; RESP 20; TEMP 36.5; O2SAT 100
[2024-05-12 06:46] LABS: Basophils Percent Auto 0.4 % (0.2-1.2); Eosinophils Absolute Auto 0.2 K/mm3 (0-0.3); Eosinophils Percent Auto 2.2 % (0-4.4); Hematocrit 32.5 % (42.0-52.0); Hemoglobin 10.3 g/dL (14.0-18.0); Immature Granulocyte Absolute 0.14 K/mm3 (0.00-0.031); Immature Granulocyte Percent A 1.7 % (0-0.5); Lymphocytes Absolute Auto 0.88 K/mm3 (0.9-3.2); Lymphocytes Percent Auto 10.7 % (18.3-44.2); Mean Corpuscular HGB Conc 31.7 g/dl (32-36); Mean Corpuscular Hemoglobin 28.1 pg (26-34); Mean Corpuscular Volume 88.8 fl (80-100); Mean Platelet Volume 11.3 fl (7.4-10.4); Monocytes Absolute Auto 0.6 K/mm3 (0.1-0.6); Monocytes Percent Auto 7.5 % (2.6-8.5); Neutrophils Absolute Auto 6.4 K/mm3 (1.3-6.7); Neutrophils Percent Auto 77.5 % (45.5-73.1); Platelet Count Result 203 k/mm3 (150-375); Red Blood Count 3.66 M/mm3 (4.6-6.20); Red Cell Distribution Width 15.8 % (11.5-14.5); White Blood Count 8.2 K/mm3 (4.5-10.0)
[2024-05-12 07:01] LABS: Alanine Aminotransferase 23 U/L (6-50); Albumin Level 2.7 g/dL (3.5-5.1); Alkaline Phosphatase 51 U/L (38-126); Anion Gap 2 mmol/L (4-12); Aspartate Amino Transferase 19 U/L (17-59); Bilirubin,Total 0.6 mg/dL (0.2-1.3); Blood Urea Nitrogen 32 mg/dL (9-20); Calcium 8.4 mg/dL (8.4-10.2); Carbon Dioxide 21 mmol/L (22-30); Chloride 113 mmol/L (98-107); Estimated CRCL calculation 32 ml/min; Estimated Glomerular Filt Rate 34; Glucose 95 mg/dL (65-110); Magnesium 1.8 mg/dL (1.6-2.3); Potassium 3.4 mmol/L (3.4-5.0); Sodium 136 mmol/L (137-145)
[2024-05-12 08:00] VITALS: PULSE 74
[2024-05-12] MEDS: FOLIC ACID 0.4 MG TABLET 0.8 MG PO (08:20)
[2024-05-12] MEDS: HEPARIN SODIUM 5,000 UNITS/ML VIAL 5000 UNITS SUB-Q ×2 (08:20→20:55)
[2024-05-12] MEDS: ASCORBIC ACID 500 MG TABLET 1000 MG PO (08:20)
[2024-05-12] MEDS: PANTOPRAZOLE 40 MG TABLET PO (08:20)
[2024-05-12] MEDS: ATORVASTATIN 40 MG TABLET PO (08:20)
[2024-05-12] MEDS: CYANOCOBALAMIN 1,000 MCG TABLET 1000 MCG PO (08:20)
--- NOTE | 2024-05-12 10:55 | PM.PNNEP ---
Subjective Date/time seen: 05/12/24 10:55 Interval history: Follow-up for acute kidney injury/acute renal failure on chronic kidney disease. Objective Data Vital Signs Vital Signs: Vital Signs Temp Pulse Resp BP Pulse Ox O2 Del Method 05/12/24 08:00 74 05/12/24 08:00 Room Air 05/12/24 06:00 97.7 F 83 20 118/73 100 05/12/24 04:00 80 05/12/24 00:00 77 05/11/24 22:00 98.1 F 86 20 132/73 100 05/11/24 20:00 95 05/11/24 20:00 Room Air 05/11/24 16:02 86 05/11/24 14:00 98.1 F 101 H 18 117/64 98 Intake/Output Intake/Output: Intake & Output 05/09/24 05/10/24 05/11/24 05/12/24 23:59 23:59 23:59 23:59 Intake Total 1390 1280 1430 1458 Output Total 1150 450 975 150 Balance 240 225 379 9035 Meds/Results Medications: Active Medications Generic Name Dose Route Start Last Admin Trade Name Freq PRN Reason Stop Dose Admin Acetaminophen 650 mg 05/09/24 11:59 Acetaminophen 325 Mg Tablet BY MOUTH Q6H PRN Mild Pain (1-3) or Fever Artificial Tears 1 drop 05/07/24 18:00 05/12/24 11:47 Artificial Tears Ophth Soln 15 Ml Bottle EACH EYE 1 drop TID EVER Administration Ascorbic Acid 1,000 mg 05/07/24 09:00 05/12/24 08:20 Ascorbic Acid 500 Mg Tablet PO 1,000 mg DAILY EVER Administration Atorvastatin Calcium 40 mg 05/07/24 09:00 05/12/24 08:20 Atorvastatin 40 Mg Tablet PO 40 mg QAM EVER Administration Brimonidine Tartrate 1 drop 05/02/24 14:00 05/12/24 05:02 Brimonidine Tartrate 0.2% Op Soln 5 Ml Btl EACH EYE 1 drop Q8HR EVER Administration Brinzolamide 1 drop 05/02/24 14:00 05/12/24 05:02 Brinzolamide 1% Ophth Susp 10 Ml EACH EYE 1 drop Q8HR EVER Administration Cyanocobalamin 1,000 mcg 05/07/24 09:00 05/12/24 08:20 Cyanocobalamin 1,000 Mcg Tablet PO 1,000 mcg DAILY EVER Administration Fluticasone Propionate 1 spray 05/06/24 17:24 Fluticasone Propionate 0.05% Na Spr 16 Gm Btl (*Bkc) NASAL HS PRN nasal congestion Fluticasone/Umeclidinium/Vilanterol 1 puff 05/11/24 08:00 05/12/24 07:54 Fluticasone/Umeclidin/Vilanter 100-62.5-25 Mcg Ellipta INHALATION Not Given DAILYRT EVER Folic Acid 0.8 mg 05/07/24 09:00 05/12/24 08:20 Folic Acid 0.4 Mg Tablet PO 0.8 mg QAM EVER Administration Furosemide 40 mg 05/12/24 12:50 Furosemide Inj 40 Mg/4 Ml Vial IV PUSH Q12HR EVER Heparin Sodium (Porcine) 5,000 units 05/08/24 12:35 05/12/24 08:20 Heparin Sodium 5,000 Units/Ml Vial SUB-Q 5,000 units Q12HR EVER Administration Latanoprost 1 drop 05/02/24 21:00 05/11/24 21:14 Latanoprost 0.005% Op Soln 2.5 Ml Btl RIGHT EYE 1 drop HS EVER Administration Magnesium Oxide 200 mg 05/06/24 21:00 05/11/24 21:12 Magnesium Oxide 200 Mg Tablet PO 200 mg HS EVER Administration Morphine Sulfate 2 mg 05/03/24 14:22 Morphine Sulfate (*Crx) 2 Mg/Ml Inj IV PUSH Q2H PRN Breakthrough Pain Rated 4-6 or NPO Morphine Sulfate 4 mg 05/03/24 14:22 Morphine Sulfate (*Crx) 4 Mg/Ml Inj IV PUSH Q2H PRN Breakthrough Pain Rated 7-10 or NPO Naloxone HCl 0.1 mg 05/03/24 14:22 Naloxone Hcl 0.4 Mg/Ml Vial IV PUSH Q2M PRN Opiate Reversal * Home Med * ( 2 each 05/06/24 20:00 05/12/24 07:54 Breztri Aerosphere) INHALATION 06/05/24 19:59 Not Given Budes/Glycopyr/ Q12HRT EVER Formot 160 Mcg-9 Mcg -4.8 Mcg Ondansetron HCl 4 mg 05/02/24 10:09 05/02/24 16:02 Ondansetron Inj 4 Mg/2 Ml Vial IV PUSH 4 mg Q6H PRN Administration Nausea And Vomiting Pantoprazole Sodium 40 mg 05/09/24 09:00 05/12/24 08:20 Pantoprazole 40 Mg Tablet PO 40 mg QAM EVER Administration Sodium Chloride 20 ml 05/03/24 05:52 Central Line Flush IV PUSH PRN PRN after blood draws Tamsulosin HCl 0.4 mg 05/06/24 21:00 05/11/24 21:13 Tamsulosin Hcl 0.4 Mg Capsule PO 0.4 mg QHS EVER Administration Vancomycin HCl 125 mg 05/06/24 06:00 05/12/24 11:47 Vancomycin Hcl 125 Mg Oral Capsule PO 05/16/24 00:01 125 mg Q6HR EVER Administration Radiology Results: ITS Impressions Abdomen X-Ray 05/02/24 06:01 Impression: NG tube in satisfactory position. Suspected small bowel obstruction. Renal Ultrasound 05/02/24 15:30 IMPRESSION: 1. Chronic severe left hydronephrosis. Severe left kidney atrophy. 2. Nonobstructing right kidney stone. Abdomen/Pelvis CT 05/02/24 18:09 IMPRESSION: 1. Small bowel obstruction secondary to a left inguinal hernia containing small bowel. 2. Small volume of ascites. 3. Moderate-sized sliding hiatal hernia. 4. Left kidney stones including a stone in the renal pelvis with chronic severe hydronephrosis and severe kidney atrophy. 5. Nonobstructing right kidney stones. Chest X-Ray 05/06/24 19:38 IMPRESSION: Left basilar consolidation with small bilateral pleural effusions. Labs Labs: Laboratory Tests 05/12/24 06:20 05/12/24 06:20 Calcium 8.4 Magnesium 1.8 Total Bilirubin 0.6 AST 19 ALT 23 Alkaline Phosphatase 51 Total Protein 5.0 L Albumin 2.7 L
[2024-05-12] MEDS: ARTIFICIAL TEARS OPHTH SOLN 15 ML BOTTLE 1 DROP EACH EYE ×2 (11:47→17:36)
--- NOTE | 2024-05-12 13:12 | P.PNIM_ITS ---
Progress Note: A&P Assessment and Plan (1) Shock: Code(s): R57.9 - Shock, unspecified Status: Resolved Assessment and Plan: S/p IVF and pressors Intially on Cefepime, Flagyl and Vancomycin, now transitioned to PO Vanc sepsis from C diff thus patient on PO Vanc now Blood cultures negative (2) C. difficile colitis: Code(s): A04.72 - Enterocolitis due to Clostridium difficile, not specified as recurrent Status: Acute Assessment and Plan: On PO Vanc day 10/21 Off FMS Diarrhea resolving monitor one more day (3) Hypokalemia: Code(s): E87.6 - Hypokalemia Status: Resolved Assessment and Plan: * Potassium 3.1 * 40 mEq of potassium given 05/08/24: * Stable Potassium now at 3.7. (4) SBO (small bowel obstruction): Code(s): K56.609 - Unspecified intestinal obstruction, unspecified as to partial versus complete obstruction Status: Acute Assessment and Plan: * S/P open incarcerated left inguinal hernia repair with mesh, no bowel ischemia noted * now tolerating diet SUrgery following (5) Atrial fibrillation: Code(s): I48.91 - Unspecified atrial fibrillation Status: Acute Assessment and Plan: * Patient went into AFib 05/03. Rate controlled. * Echo showing EF 50-55%, abnormal diastolic fxn, possible PFO and mild valvular disease. * Cardiology following * Monitor on tele for now. * Eliquis 2.5mg bid (6) Incarcerated left inguinal hernia: Code(s): K40.30 - Unilateral inguinal hernia, with obstruction, without gangrene, not specified as recurrent Status: Acute Assessment and Plan: As above (7) Acute on chronic renal failure: Code(s): N17.9 - Acute kidney failure, unspecified; N18.9 - Chronic kidney disease, unspecified Status: Acute Assessment and Plan: * Creatinine 2.0, improving * Nephrology following * Avoid nephrotoxic medication or testing with IV contrast * Continue fluid restriction * Will remove beasley today 05/08/24: * Creatinine continues to improve and is currently 1.7 today. * Creatinine appears to be at baseline (8) Obstructive uropathy: Code(s): N13.9 - Obstructive and reflux uropathy, unspecified Status: Acute Assessment and Plan: * CT Abd/Pelvis 05/02 shows multiple nonobstructing right renal stones, markedly enlarged left kidney with marked, severe chronic hydronephrosis and severe diffuse cortical thinning. There is a large, presumably chronically obstructing stone at the left renal pelvis region measuring 3.0 x 2.0 cm in size. Additional smaller nonobstructing left renal stones are also present. * Renal US showing chronic severe left hydronephrosis and severe left kidney atrophy * UA is not consistent with UTI. * Known finding per patient hx. 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 * Dafter this is an incidental finding and not contributing to his current illness * Urology felt the right renal stones should be treated and will arrange for this as outpatient. 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, unspecified Status: Acute Assessment and Plan: * History of PFO * Continue Breztri Plan Worsening scrotal and leg swelling ECHO on 05/03 showed EF 55% with abnormal diastolic function but not graded Given one dose of Lasix and evaluate and dose daily Nephrology following DVT prophylaxis on Sq Lovenox Awaiting placement Subjective Date/time seen: 05/12/24 13:12 Interval history: Patient comfortable at bedside Diarrhea much improved Still having worsening scrotal and leg swelling swelling given one dose of Lasix today will evaluate daily and adjust diuretics Patient has one functional kidney per nephrology so we are being careful with diuresis. Review of Systems Review of Systems: All systems reviewed & are unremarkable except as noted in HPI and below Exam Narrative: General: In no acute distress, well nourished Head: atraumatic, no encephalopathy Eyes: PERRLA, sclera clear ENT: moist mucous membranes, nasal passages clear Neck: supple, no JVD, no adenopathy, trachea midline Cardiac: Irregular rhythm of Atrial Fibrillation. No murmur, gallops or friction rubs, peripheral pulses intact. Respiratory: Lungs clear to auscultation, no adventitious lung sounds, currently on room air Gastrointestinal: soft, non-distended, non-tender, normoactive bowel sounds. Fecal management system in place : voiding without difficulty per purewick. Extremities: moves all extremities well, no edema, good ROM, strength 5/5 Skin: clean, dry, intact. Surgical dressing midline without shadowing. Neuro: Alert and oriented x4, cranial nerves intact, no neuro deficits. Psych: normal mood, normal affect, interactive Objective Data Vital Signs Vital Signs: Vital Signs - 24 hr 05/11/24 14:00 05/11/24 16:02 05/11/24 20:00 Temperature 98.1 F Pulse Rate 101 H 86 Respiratory Rate 18 Blood Pressure 117/64 Pulse Oximetry 98 Oxygen Delivery Room Air 05/11/24 20:00 05/11/24 22:00 05/12/24 00:00 Temperature 98.1 F Pulse Rate 95 86 77 Respiratory Rate 20 Blood Pressure 132/73 Pulse Oximetry 100 Oxygen Delivery 05/12/24 04:00 05/12/24 06:00 05/12/24 08:00 Temperature 97.7 F Pulse Rate 80 83 Respiratory Rate 20 Blood Pressure 118/73 Pulse Oximetry 100 Oxygen Delivery Room Air 05/12/24 08:00 Temperature Pulse Rate 74 Respiratory Rate Blood Pressure Pulse Oximetry Oxygen Delivery Intake/Output Intake/Output: Intake & Output 05/09/24 05/10/24 05/11/24 05/12/24 23:59 23:59 23:59 23:59 Intake Total 1390 1280 1430 1458 Output Total 1150 450 975 150 Balance 240 431 833 7640 Meds/Results Medications: Active Medications Generic Name Dose Route Start Last Admin Trade Name Freq PRN Reason Stop Dose Admin Acetaminophen 650 mg 05/09/24 11:59 Acetaminophen 325 Mg Tablet BY MOUTH Q6H PRN Mild Pain (1-3) or Fever Artificial Tears 1 drop 05/07/24 18:00 05/12/24 11:47 Artificial Tears Ophth Soln 15 Ml Bottle EACH EYE 1 drop TID EVER Administration Ascorbic Acid 1,000 mg 05/07/24 09:00 05/12/24 08:20 Ascorbic Acid 500 Mg Tablet PO 1,000 mg DAILY EVER Administration Atorvastatin Calcium 40 mg 05/07/24 09:00 05/12/24 08:20 Atorvastatin 40 Mg Tablet PO 40 mg QAM EVER Administration Brimonidine Tartrate 1 drop 05/02/24 14:00 05/12/24 05:02 Brimonidine Tartrate 0.2% Op Soln 5 Ml Btl EACH EYE 1 drop Q8HR EVER Administration Brinzolamide 1 drop 05/02/24 14:00 05/12/24 05:02 Brinzolamide 1% Ophth Susp 10 Ml EACH EYE 1 drop Q8HR EVER Administration Cyanocobalamin 1,000 mcg 05/07/24 09:00 05/12/24 08:20 Cyanocobalamin 1,000 Mcg Tablet PO 1,000 mcg DAILY EVER Administration Fluticasone Propionate 1 spray 05/06/24 17:24 Fluticasone Propionate 0.05% Na Spr 16 Gm Btl (*Bkc) NASAL HS PRN nasal congestion Fluticasone/Umeclidinium/Vilanterol 1 puff 05/11/24 08:00 05/12/24 07:54 Fluticasone/Umeclidin/Vilanter 100-62.5-25 Mcg Ellipta INHALATION Not Given DAILYRT EVER Folic Acid 0.8 mg 05/07/24 09:00 05/12/24 08:20 Folic Acid 0.4 Mg Tablet PO 0.8 mg QAM EVER Administration Furosemide 40 mg 05/12/24 12:50 Furosemide Inj 40 Mg/4 Ml Vial IV PUSH Q12HR EVER Heparin Sodium (Porcine) 5,000 units 05/08/24 12:35 05/12/24 08:20 Heparin Sodium 5,000 Units/Ml Vial SUB-Q 5,000 units Q12HR EVER Administration Latanoprost 1 drop 05/02/24 21:00 05/11/24 21:14 Latanoprost 0.005% Op Soln 2.5 Ml Btl RIGHT EYE 1 drop HS EVER Administration Magnesium Oxide 200 mg 05/06/24 21:00 05/11/24 21:12 Magnesium Oxide 200 Mg Tablet PO 200 mg HS EVER Administration Morphine Sulfate 2 mg 05/03/24 14:22 Morphine Sulfate (*Crx) 2 Mg/Ml Inj IV PUSH Q2H PRN Breakthrough Pain Rated 4-6 or NPO Morphine Sulfate 4 mg 05/03/24 14:22 Morphine Sulfate (*Crx) 4 Mg/Ml Inj IV PUSH Q2H PRN Breakthrough Pain Rated 7-10 or NPO Naloxone HCl 0.1 mg 05/03/24 14:22 Naloxone Hcl 0.4 Mg/Ml Vial IV PUSH Q2M PRN Opiate Reversal * Home Med * ( 2 each 05/06/24 20:00 05/12/24 07:54 Breztri Aerosphere) INHALATION 06/05/24 19:59 Not Given Budes/Glycopyr/ Q12HRT EVER Formot 160 Mcg-9 Mcg -4.8 Mcg Ondansetron HCl 4 mg 05/02/24 10:09 05/02/24 16:02 Ondansetron Inj 4 Mg/2 Ml Vial IV PUSH 4 mg Q6H PRN Administration Nausea And Vomiting Pantoprazole Sodium 40 mg 05/09/24 09:00 05/12/24 08:20 Pantoprazole 40 Mg Tablet PO 40 mg QAM EVER Administration Sodium Chloride 20 ml 05/03/24 05:52 Central Line Flush IV PUSH PRN PRN after blood draws Tamsulosin HCl 0.4 mg 05/06/24 21:00 05/11/24 21:13 Tamsulosin Hcl 0.4 Mg Capsule PO 0.4 mg QHS EVER Administration Vancomycin HCl 125 mg 05/06/24 06:00 05/12/24 11:47 Vancomycin Hcl 125 Mg Oral Capsule PO 05/16/24 00:01 125 mg Q6HR EVER Administration Radiology Results: ITS Impressions Abdomen X-Ray 05/02/24 06:01 Impression: NG tube in satisfactory position. Suspected small bowel obstruction. Renal Ultrasound 05/02/24 15:30 IMPRESSION: 1. Chronic severe left hydronephrosis. Severe left kidney atrophy. 2. Nonobstructing right kidney stone. Abdomen/Pelvis CT 05/02/24 18:09 IMPRESSION: 1. Small bowel obstruction secondary to a left inguinal hernia containing small bowel. 2. Small volume of ascites. 3. Moderate-sized sliding hiatal hernia. 4. Left kidney stones including a stone in the renal pelvis with chronic severe hydronephrosis and severe kidney atrophy. 5. Nonobstructing right kidney stones. Chest X-Ray 05/06/24 19:38 IMPRESSION: Left basilar consolidation with small bilateral pleural effusions. Labs Labs: Laboratory Results - last 24 hr 05/12/24 06:20 WBC 8.2 RBC 3.66 L Hgb 10.3 L Hct 32.5 L MCV 88.8 MCH 28.1 MCHC 31.7 L RDW 15.8 H Plt Count 203 MPV 11.3 H Immature Gran % (Auto) 1.7 H Neut % (Auto) 77.5 H Lymph % (Auto) 10.7 L [place] % (Auto) 7.5 Eos % (Auto) 2.2 Baso % (Auto) 0.4 Lymph # (Auto) 0.88 L [place] # (Auto) 0.6 Eos # (Auto) 0.2 Baso # (Auto) 0.0 Abs Immat Gran (auto) 0.14 H Absolute Neuts (auto) 6.4 Absolute Nucleated RBC 0.000 Nucleated RBC % 0.0 Sodium 136 L Potassium 3.4 Chloride 113 H Carbon Dioxide 21 L Anion Gap 2 L BUN 32 H Creatinine 1.90 H Estim Creat Clear Calc 32 Estimated GFR 34 L Glucose 95 Calcium 8.4 Magnesium 1.8 Total Bilirubin 0.6 AST 19 ALT 23 Alkaline Phosphatase 51 Total Protein 5.0 L Albumin 2.7 L Quality VTE Prophylaxis VTE prophylaxis: pharmacologic ordered
[2024-05-12] MEDS: FUROSEMIDE INJ 40 MG/4 ML VIAL IV PUSH (13:14)
[2024-05-12 14:00] VITALS: BP 117/74; PULSE 76; RESP 18; TEMP 36.6; O2SAT 99
[2024-05-12 20:33] VITALS: BP 120/66; PULSE 99; RESP 16; TEMP 37.2; O2SAT 100
[2024-05-12] MEDS: MAGNESIUM OXIDE 200 MG TABLET PO (20:55)
[2024-05-12] MEDS: TAMSULOSIN HCL 0.4 MG CAPSULE PO (20:55)
[2024-05-12] MEDS: LATANOPROST 0.005% OP SOLN 2.5 ML BTL 1 DROP RIGHT EYE (20:55)
[2024-05-12 23:48] LABS: Chloride Rand Ur <20 mmol/L (32-290); Chloride/Creatinine Rand Ur 26 (23-275); Creatinine Random Urine 78 mg/dL (20-320)
[2024-05-13 04:41] VITALS: BP 117/75; PULSE 83; RESP 16; TEMP 37.1; O2SAT 99
[2024-05-13] MEDS: VANCOMYCIN HCL 125 MG ORAL CAPSULE PO ×4 (05:09→23:29)
[2024-05-13] MEDS: BRINZOLAMIDE 1% OPHTH SUSP 10 ML 1 DROP EACH EYE ×3 (05:09→21:26)
[2024-05-13] MEDS: BRIMONIDINE TARTRATE 0.2% OP SOLN 5 ML BTL 1 DROP EACH EYE ×3 (05:09→21:26)
[2024-05-13 07:33] LABS: Basophils Percent Auto 0.6 % (0.2-1.2); Eosinophils Absolute Auto 0.1 K/mm3 (0-0.3); Hematocrit 31.6 % (42.0-52.0); Hemoglobin 10.1 g/dL (14.0-18.0); Immature Granulocyte Absolute 0.08 K/mm3 (0.00-0.031); Immature Granulocyte Percent A 1.2 % (0-0.5); Lymphocytes Absolute Auto 0.85 K/mm3 (0.9-3.2); Lymphocytes Percent Auto 13.2 % (18.3-44.2); Mean Corpuscular Volume 87.5 fl (80-100); Mean Platelet Volume 10.9 fl (7.4-10.4); Monocytes Absolute Auto 0.6 K/mm3 (0.1-0.6); Monocytes Percent Auto 9.5 % (2.6-8.5); Neutrophils Absolute Auto 4.7 K/mm3 (1.3-6.7); Neutrophils Percent Auto 73.5 % (45.5-73.1); Platelet Count Result 225 k/mm3 (150-375); Red Blood Count 3.61 M/mm3 (4.6-6.20); Red Cell Distribution Width 15.8 % (11.5-14.5); White Blood Count 6.5 K/mm3 (4.5-10.0)
[2024-05-13 07:48] LABS: Alanine Aminotransferase 24 U/L (6-50); Albumin Level 2.8 g/dL (3.5-5.1); Alkaline Phosphatase 51 U/L (38-126); Anion Gap 3 mmol/L (4-12); Aspartate Amino Transferase 19 U/L (17-59); Bilirubin,Total 0.6 mg/dL (0.2-1.3); Blood Urea Nitrogen 29 mg/dL (9-20); Calcium 8.3 mg/dL (8.4-10.2); Carbon Dioxide 20 mmol/L (22-30); Chloride 112 mmol/L (98-107); Estimated CRCL calculation 34 ml/min; Estimated Glomerular Filt Rate 36; Glucose 103 mg/dL (65-110); Magnesium 1.7 mg/dL (1.6-2.3); Phosphorus 3.7 mg/dL (2.5-4.5); Potassium 3.6 mmol/L (3.4-5.0); Sodium 135 mmol/L (137-145)
[2024-05-13] MEDS: HEPARIN SODIUM 5,000 UNITS/ML VIAL 5000 UNITS SUB-Q ×2 (09:18→21:20)
[2024-05-13] MEDS: PANTOPRAZOLE 40 MG TABLET PO (09:19)
[2024-05-13] MEDS: CYANOCOBALAMIN 1,000 MCG TABLET 1000 MCG PO (09:19)
[2024-05-13] MEDS: ATORVASTATIN 40 MG TABLET PO (09:19)
[2024-05-13] MEDS: ASCORBIC ACID 500 MG TABLET 1000 MG PO (09:19)
[2024-05-13] MEDS: ARTIFICIAL TEARS OPHTH SOLN 15 ML BOTTLE 1 DROP EACH EYE ×3 (09:19→16:01)
[2024-05-13] MEDS: FOLIC ACID 0.4 MG TABLET 0.8 MG PO (09:19)
--- NOTE | 2024-05-13 10:42 | PM.PNNEP ---
Subjective Date/time seen: 05/13/24 10:42 Objective Data Vital Signs Vital Signs: Vital Signs Temp Pulse Resp BP Pulse Ox O2 Del Method 05/13/24 10:00 98.3 F 81 18 125/71 99 05/13/24 04:41 98.8 F 83 16 117/75 99 05/12/24 20:33 99 F 99 16 120/66 100 05/12/24 20:00 Room Air Intake/Output Intake/Output: Intake & Output 05/10/24 05/11/24 05/12/24 05/13/24 23:59 23:59 23:59 23:59 Intake Total 1280 1430 1938 1030 Output Total 858 850 7048 700 Balance 830 455 88 330 Meds/Results Medications: Active Medications Generic Name Dose Route Start Last Admin Trade Name Freq PRN Reason Stop Dose Admin Acetaminophen 650 mg 05/09/24 11:59 Acetaminophen 325 Mg Tablet BY MOUTH Q6H PRN Mild Pain (1-3) or Fever Artificial Tears 1 drop 05/07/24 18:00 05/13/24 16:01 Artificial Tears Ophth Soln 15 Ml Bottle EACH EYE 1 drop TID EVER Administration Ascorbic Acid 1,000 mg 05/07/24 09:00 05/13/24 09:19 Ascorbic Acid 500 Mg Tablet PO 1,000 mg DAILY EVER Administration Atorvastatin Calcium 40 mg 05/07/24 09:00 05/13/24 09:19 Atorvastatin 40 Mg Tablet PO 40 mg QAM EVER Administration Brimonidine Tartrate 1 drop 05/02/24 14:00 05/13/24 13:18 Brimonidine Tartrate 0.2% Op Soln 5 Ml Btl EACH EYE 1 drop Q8HR EVER Administration Brinzolamide 1 drop 05/02/24 14:00 05/13/24 13:18 Brinzolamide 1% Ophth Susp 10 Ml EACH EYE 1 drop Q8HR EVER Administration Cyanocobalamin 1,000 mcg 05/07/24 09:00 05/13/24 09:19 Cyanocobalamin 1,000 Mcg Tablet PO 1,000 mcg DAILY EVER Administration Fluticasone Propionate 1 spray 05/06/24 17:24 Fluticasone Propionate 0.05% Na Spr 16 Gm Btl (*Bkc) NASAL HS PRN nasal congestion Fluticasone/Umeclidinium/Vilanterol 1 puff 05/11/24 08:00 05/13/24 07:39 Fluticasone/Umeclidin/Vilanter 100-62.5-25 Mcg Ellipta INHALATION Not Given DAILYRT EVER Folic Acid 0.8 mg 05/07/24 09:00 05/13/24 09:19 Folic Acid 0.4 Mg Tablet PO 0.8 mg QAM EVER Administration Heparin Sodium (Porcine) 5,000 units 05/08/24 12:35 05/13/24 09:18 Heparin Sodium 5,000 Units/Ml Vial SUB-Q 5,000 units Q12HR EVER Administration Latanoprost 1 drop 05/02/24 21:00 05/12/24 20:55 Latanoprost 0.005% Op Soln 2.5 Ml Btl RIGHT EYE 1 drop HS EVER Administration Magnesium Oxide 200 mg 05/06/24 21:00 05/12/24 20:55 Magnesium Oxide 200 Mg Tablet PO 200 mg HS EVER Administration Naloxone HCl 0.1 mg 05/03/24 14:22 Naloxone Hcl 0.4 Mg/Ml Vial IV PUSH Q2M PRN Opiate Reversal * Home Med * ( 2 each 05/06/24 20:00 05/13/24 07:40 Breztri Aerosphere) INHALATION 06/05/24 19:59 Not Given Budes/Glycopyr/ Q12HRT EVER Formot 160 Mcg-9 Mcg -4.8 Mcg Ondansetron HCl 4 mg 05/02/24 10:09 05/02/24 16:02 Ondansetron Inj 4 Mg/2 Ml Vial IV PUSH 4 mg Q6H PRN Administration Nausea And Vomiting Pantoprazole Sodium 40 mg 05/09/24 09:00 05/13/24 09:19 Pantoprazole 40 Mg Tablet PO 40 mg QAM EVER Administration Sodium Chloride 20 ml 05/03/24 05:52 Central Line Flush IV PUSH PRN PRN after blood draws Tamsulosin HCl 0.4 mg 05/06/24 21:00 05/12/24 20:55 Tamsulosin Hcl 0.4 Mg Capsule PO 0.4 mg QHS EVER Administration Vancomycin HCl 125 mg 05/06/24 06:00 05/13/24 11:03 Vancomycin Hcl 125 Mg Oral Capsule PO 05/16/24 00:01 125 mg Q6HR EVER Administration Radiology Results: ITS Impressions Abdomen X-Ray 05/02/24 06:01 Impression: NG tube in satisfactory position. Suspected small bowel obstruction. Renal Ultrasound 05/02/24 15:30 IMPRESSION: 1. Chronic severe left hydronephrosis. Severe left kidney atrophy. 2. Nonobstructing right kidney stone. Abdomen/Pelvis CT 05/02/24 18:09 IMPRESSION: 1. Small bowel obstruction secondary to a left inguinal hernia containing small bowel. 2. Small volume of ascites. 3. Moderate-sized sliding hiatal hernia. 4. Left kidney stones including a stone in the renal pelvis with chronic severe hydronephrosis and severe kidney atrophy. 5. Nonobstructing right kidney stones. Chest X-Ray 05/13/24 07:56 Impression: Minimal pleural effusions. Probable minimal bibasilar pulmonary edema/atelectasis, especially left lung base. Correlate clinically for pneumonia. Labs Labs: Laboratory Tests 05/13/24 07:17 05/13/24 07:17 Calcium 8.3 L Phosphorus 3.7 Magnesium 1.7 Total Bilirubin 0.6 AST 19 ALT 24 Alkaline Phosphatase 51 Total Protein 5.0 L Albumin 2.8 L
--- NOTE | 2024-05-13 13:16 | P.PNIM_ITS ---
Progress Note: A&P Assessment and Plan (1) Shock: Code(s): R57.9 - Shock, unspecified Status: Resolved Assessment and Plan: S/p IVF and pressors Intially on Cefepime, Flagyl and Vancomycin, now transitioned to PO Vanc sepsis from C diff thus patient on PO Vanc now Blood cultures negative Resolved (2) C. difficile colitis: Code(s): A04.72 - Enterocolitis due to Clostridium difficile, not specified as recurrent Status: Acute Assessment and Plan: On PO Vanc day 10/21 Off FMS Diarrhea resolving monitor one more day (3) Hypokalemia: Code(s): E87.6 - Hypokalemia Status: Resolved Assessment and Plan: * Potassium 3.1 * 40 mEq of potassium given 05/08/24: * Stable Potassium now at 3.7. 05/13/2024 Potassium is 2.3 will replace and monitor. (4) SBO (small bowel obstruction): Code(s): K56.609 - Unspecified intestinal obstruction, unspecified as to partial versus complete obstruction Status: Acute Assessment and Plan: * S/P open incarcerated left inguinal hernia repair with mesh, no bowel ischemia noted * now tolerating diet SUrgery following (5) Atrial fibrillation: Code(s): I48.91 - Unspecified atrial fibrillation Status: Acute Assessment and Plan: * Patient went into AFib 05/03. Rate controlled. * Echo showing EF 50-55%, abnormal diastolic fxn, possible PFO and mild valvular disease. * Cardiology following * Monitor on tele for now. * Eliquis 2.5mg bid (6) Incarcerated left inguinal hernia: Code(s): K40.30 - Unilateral inguinal hernia, with obstruction, without gangrene, not specified as recurrent Status: Acute Assessment and Plan: As above (7) Acute on chronic renal failure: Code(s): N17.9 - Acute kidney failure, unspecified; N18.9 - Chronic kidney disease, unspecified Status: Acute Assessment and Plan: * Creatinine 2.0, improving * Nephrology following * Avoid nephrotoxic medication or testing with IV contrast * Continue fluid restriction * Will remove beasley today 05/08/24: * Creatinine continues to improve and is currently 1.7 today. * Creatinine appears to be at baseline (8) Obstructive uropathy: Code(s): N13.9 - Obstructive and reflux uropathy, unspecified Status: Acute Assessment and Plan: * CT Abd/Pelvis 05/02 shows multiple nonobstructing right renal stones, markedly enlarged left kidney with marked, severe chronic hydronephrosis and severe diffuse cortical thinning. There is a large, presumably chronically obstructing stone at the left renal pelvis region measuring 3.0 x 2.0 cm in size. Additional smaller nonobstructing left renal stones are also present. * Renal US showing chronic severe left hydronephrosis and severe left kidney atrophy * UA is not consistent with UTI. * Known finding per patient hx. 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 * [place] this is an incidental finding and not contributing to his current illness * Urology felt the right renal stones should be treated and will arrange for this as outpatient. 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 No shortness of breath or chest pain. Diarrhea is better. Review of Systems Review of Systems: All systems reviewed & are unremarkable except as noted in HPI and below Exam Narrative: General: In no acute distress, well nourished Head: atraumatic, no encephalopathy Eyes: PERRLA, sclera clear ENT: moist mucous membranes, nasal passages clear Neck: supple, no JVD, no adenopathy, trachea midline Cardiac: Irregular rhythm of Atrial Fibrillation. No murmur, gallops or friction rubs, peripheral pulses intact. Respiratory: Lungs clear to auscultation, no adventitious lung sounds, currently on room air Gastrointestinal: soft, non-distended, non-tender, normoactive bowel sounds. Fecal management system in place : voiding without difficulty per madhavi. Extremities: moves all extremities well, no edema, good ROM, strength 5/5 Skin: clean, dry, intact. Surgical dressing midline without shadowing. Neuro: Alert and oriented x4, cranial nerves intact, no neuro deficits. Psych: normal mood, normal affect, interactive Objective Data Vital Signs Vital Signs: Vital Signs - 24 hr 05/12/24 14:00 05/12/24 20:00 05/12/24 20:33 Temperature 36.6 C 37.2 C Pulse Rate 76 99 Respiratory Rate 18 16 Blood Pressure 117/74 120/66 Pulse Oximetry 99 100 Oxygen Delivery Room Air 05/13/24 04:41 Temperature 37.1 C Pulse Rate 83 Respiratory Rate 16 Blood Pressure 117/75 Pulse Oximetry 99 Oxygen Delivery Intake/Output Intake/Output: Intake & Output 05/10/24 05/11/24 05/12/24 05/13/24 23:59 23:59 23:59 23:59 Intake Total 1280 1430 1938 790 Output Total 943 784 5750 700 Balance 830 455 88 90 Meds/Results Medications: Active Medications Generic Name Dose Route Start Last Admin Trade Name Freq PRN Reason Stop Dose Admin Acetaminophen 650 mg 05/09/24 11:59 Acetaminophen 325 Mg Tablet BY MOUTH Q6H PRN Mild Pain (1-3) or Fever Artificial Tears 1 drop 05/07/24 18:00 05/13/24 12:04 Artificial Tears Ophth Soln 15 Ml Bottle EACH EYE 1 drop TID EVER Administration Ascorbic Acid 1,000 mg 05/07/24 09:00 05/13/24 09:19 Ascorbic Acid 500 Mg Tablet PO 1,000 mg DAILY EVER Administration Atorvastatin Calcium 40 mg 05/07/24 09:00 05/13/24 09:19 Atorvastatin 40 Mg Tablet PO 40 mg QAM EVER Administration Brimonidine Tartrate 1 drop 05/02/24 14:00 05/13/24 05:09 Brimonidine Tartrate 0.2% Op Soln 5 Ml Btl EACH EYE 1 drop Q8HR EVER Administration Brinzolamide 1 drop 05/02/24 14:00 05/13/24 05:09 Brinzolamide 1% Ophth Susp 10 Ml EACH EYE 1 drop Q8HR EVER Administration Cyanocobalamin 1,000 mcg 05/07/24 09:00 05/13/24 09:19 Cyanocobalamin 1,000 Mcg Tablet PO 1,000 mcg DAILY EVER Administration Fluticasone Propionate 1 spray 05/06/24 17:24 Fluticasone Propionate 0.05% Na Spr 16 Gm Btl (*Bkc) NASAL HS PRN nasal congestion Fluticasone/Umeclidinium/Vilanterol 1 puff 05/11/24 08:00 05/13/24 07:39 Fluticasone/Umeclidin/Vilanter 100-62.5-25 Mcg Ellipta INHALATION Not Given DAILYRT EVER Folic Acid 0.8 mg 05/07/24 09:00 05/13/24 09:19 Folic Acid 0.4 Mg Tablet PO 0.8 mg QAM EVER Administration Heparin Sodium (Porcine) 5,000 units 05/08/24 12:35 05/13/24 09:18 Heparin Sodium 5,000 Units/Ml Vial SUB-Q 5,000 units Q12HR EVER Administration Latanoprost 1 drop 05/02/24 21:00 05/12/24 20:55 Latanoprost 0.005% Op Soln 2.5 Ml Btl RIGHT EYE 1 drop HS EVER Administration Magnesium Oxide 200 mg 05/06/24 21:00 05/12/24 20:55 Magnesium Oxide 200 Mg Tablet PO 200 mg HS EVER Administration Morphine Sulfate 2 mg 05/03/24 14:22 Morphine Sulfate (*Crx) 2 Mg/Ml Inj IV PUSH Q2H PRN Breakthrough Pain Rated 4-6 or NPO Morphine Sulfate 4 mg 05/03/24 14:22 Morphine Sulfate (*Crx) 4 Mg/Ml Inj IV PUSH Q2H PRN Breakthrough Pain Rated 7-10 or NPO Naloxone HCl 0.1 mg 05/03/24 14:22 Naloxone Hcl 0.4 Mg/Ml Vial IV PUSH Q2M PRN Opiate Reversal * Home Med * ( 2 each 05/06/24 20:00 05/13/24 07:40 Breztri Aerosphere) INHALATION 06/05/24 19:59 Not Given Budes/Glycopyr/ Q12HRT EVER Formot 160 Mcg-9 Mcg -4.8 Mcg Ondansetron HCl 4 mg 05/02/24 10:09 05/02/24 16:02 Ondansetron Inj 4 Mg/2 Ml Vial IV PUSH 4 mg Q6H PRN Administration Nausea And Vomiting Pantoprazole Sodium 40 mg 05/09/24 09:00 05/13/24 09:19 Pantoprazole 40 Mg Tablet PO 40 mg QAM EVER Administration Sodium Chloride 20 ml 05/03/24 05:52 Central Line Flush IV PUSH PRN PRN after blood draws Tamsulosin HCl 0.4 mg 05/06/24 21:00 05/12/24 20:55 Tamsulosin Hcl 0.4 Mg Capsule PO 0.4 mg QHS EVER Administration Vancomycin HCl 125 mg 05/06/24 06:00 05/13/24 11:03 Vancomycin Hcl 125 Mg Oral Capsule PO 05/16/24 00:01 125 mg Q6HR EVER Administration Radiology Results: ITS Impressions Abdomen X-Ray 05/02/24 06:01 Impression: NG tube in satisfactory position. Suspected small bowel obstruction. Renal Ultrasound 05/02/24 15:30 IMPRESSION: 1. Chronic severe left hydronephrosis. Severe left kidney atrophy. 2. Nonobstructing right kidney stone. Abdomen/Pelvis CT 05/02/24 18:09 IMPRESSION: 1. Small bowel obstruction secondary to a left inguinal hernia containing small bowel. 2. Small volume of ascites. 3. Moderate-sized sliding hiatal hernia. 4. Left kidney stones including a stone in the renal pelvis with chronic severe hydronephrosis and severe kidney atrophy. 5. Nonobstructing right kidney stones. Chest X-Ray 05/13/24 07:56 Impression: Minimal pleural effusions. Probable minimal bibasilar pulmonary edema/atelectasis, especially left lung base. Correlate clinically for pneumonia. Labs Labs: Laboratory Results - last 24 hr 05/02/24 05/13/24 18:08 07:17 WBC 6.5 RBC 3.61 L Hgb 10.1 L Hct 31.6 L MCV 87.5 MCH 28.0 MCHC 32.0 RDW 15.8 H Plt Count 225 MPV 10.9 H Immature Gran % (Auto) 1.2 H Neut % (Auto) 73.5 H Lymph % (Auto) 13.2 L [place] % (Auto) 9.5 H Eos % (Auto) 2.0 Baso % (Auto) 0.6 Lymph # (Auto) 0.85 L [place] # (Auto) 0.6 Eos # (Auto) 0.1 Baso # (Auto) 0.0 Abs Immat Gran (auto) 0.08 H Absolute Neuts (auto) 4.7 Absolute Nucleated RBC 0.000 Nucleated RBC % 0.0 Sodium 135 L Potassium 3.6 Chloride 112 H Carbon Dioxide 20 L Anion Gap 3 L BUN 29 H Creatinine 1.80 H Estim Creat Clear Calc 34 Estimated GFR 36 L Glucose 103 Calcium 8.3 L Phosphorus 3.7 Magnesium 1.7 Total Bilirubin 0.6 AST 19 ALT 24 Alkaline Phosphatase 51 Total Protein 5.0 L Albumin 2.8 L Ur Random Creatinine 78 Ur Random Chloride <20 L U Random Chloride/Creat 26 Quality VTE Prophylaxis VTE prophylaxis: pharmacologic ordered
[2024-05-13 14:00] VITALS: BP 125/71; PULSE 81; RESP 18; TEMP 36.8; O2SAT 99
[2024-05-13 20:35] VITALS: BP 135/82; PULSE 93; RESP 20; TEMP 37.2; O2SAT 99
[2024-05-13] MEDS: MAGNESIUM OXIDE 200 MG TABLET PO (21:20)
[2024-05-13] MEDS: TAMSULOSIN HCL 0.4 MG CAPSULE PO (21:20)
[2024-05-13] MEDS: LATANOPROST 0.005% OP SOLN 2.5 ML BTL 1 DROP RIGHT EYE (21:30)
[2024-05-14] MEDS: VANCOMYCIN HCL 125 MG ORAL CAPSULE PO ×4 (05:38→23:51)
[2024-05-14] MEDS: BRINZOLAMIDE 1% OPHTH SUSP 10 ML 1 DROP EACH EYE ×3 (05:38→21:01)
[2024-05-14] MEDS: BRIMONIDINE TARTRATE 0.2% OP SOLN 5 ML BTL 1 DROP EACH EYE ×3 (05:38→21:01)
[2024-05-14 06:00] VITALS: BP 129/77; PULSE 89; RESP 16; TEMP 37.2; O2SAT 97
[2024-05-14 06:58] LABS: Basophils Percent Auto 0.7 % (0.2-1.2); Eosinophils Absolute Auto 0.1 K/mm3 (0-0.3); Eosinophils Percent Auto 2.5 % (0-4.4); Hematocrit 30.7 % (42.0-52.0); Hemoglobin 9.7 g/dL (14.0-18.0); Immature Granulocyte Absolute 0.04 K/mm3 (0.00-0.031); Immature Granulocyte Percent A 0.7 % (0-0.5); Lymphocytes Absolute Auto 1.13 K/mm3 (0.9-3.2); Lymphocytes Percent Auto 20.4 % (18.3-44.2); Mean Corpuscular HGB Conc 31.6 g/dl (32-36); Mean Corpuscular Hemoglobin 27.8 pg (26-34); Mean Platelet Volume 11.2 fl (7.4-10.4); Monocytes Absolute Auto 0.5 K/mm3 (0.1-0.6); Monocytes Percent Auto 9.6 % (2.6-8.5); Neutrophils Absolute Auto 3.7 K/mm3 (1.3-6.7); Neutrophils Percent Auto 66.1 % (45.5-73.1); Platelet Count Result 218 k/mm3 (150-375); Red Blood Count 3.49 M/mm3 (4.6-6.20); Red Cell Distribution Width 15.8 % (11.5-14.5); White Blood Count 5.5 K/mm3 (4.5-10.0)
[2024-05-14 07:12] LABS: Alanine Aminotransferase 27 U/L (6-50); Albumin Level 2.7 g/dL (3.5-5.1); Alkaline Phosphatase 56 U/L (38-126); Anion Gap 2 mmol/L (4-12); Aspartate Amino Transferase 18 U/L (17-59); Bilirubin,Total 0.6 mg/dL (0.2-1.3); Blood Urea Nitrogen 24 mg/dL (9-20); Calcium 8.4 mg/dL (8.4-10.2); Carbon Dioxide 23 mmol/L (22-30); Chloride 110 mmol/L (98-107); Estimated CRCL calculation 30 ml/min; Estimated Glomerular Filt Rate 36; Glucose 102 mg/dL (65-110); Magnesium 1.8 mg/dL (1.6-2.3); Phosphorus 3.3 mg/dL (2.5-4.5); Potassium 3.7 mmol/L (3.4-5.0); Sodium 135 mmol/L (137-145)
[2024-05-14 07:55] VITALS: PULSE 86; RESP 18; O2SAT 97
[2024-05-14] MEDS: FORMOTEROL INHALATION (07:55)
[2024-05-14] MEDS: BUDESONIDE INHALATION (07:55)
[2024-05-14] MEDS: GLYCOPYRROLATE INHALATION (07:55)
[2024-05-14] MEDS: FLUTICASONE/UMECLIDIN/VILANTER 100-62.5-25 MCG ELLIPTA 1 PUFF INHALATION (07:55)
[2024-05-14] MEDS: ASCORBIC ACID 500 MG TABLET 1000 MG PO (09:53)
[2024-05-14] MEDS: CYANOCOBALAMIN 1,000 MCG TABLET 1000 MCG PO (09:53)
[2024-05-14] MEDS: ATORVASTATIN 40 MG TABLET PO (09:54)
[2024-05-14] MEDS: HEPARIN SODIUM 5,000 UNITS/ML VIAL 5000 UNITS SUB-Q ×2 (09:54→21:00)
[2024-05-14] MEDS: FOLIC ACID 0.4 MG TABLET 0.8 MG PO (09:54)
[2024-05-14] MEDS: PANTOPRAZOLE 40 MG TABLET PO (09:54)
[2024-05-14] MEDS: ARTIFICIAL TEARS OPHTH SOLN 15 ML BOTTLE 1 DROP EACH EYE ×3 (10:09→17:55)
--- NOTE | 2024-05-14 10:41 | P.PNIM_ITS ---
Progress Note: A&P Assessment and Plan (1) Shock: Code(s): R57.9 - Shock, unspecified Status: Resolved Assessment and Plan: S/p IVF and pressors Intially on Cefepime, Flagyl and Vancomycin, now transitioned to PO Vanc sepsis from C diff thus patient on PO Vanc now Blood cultures negative Resolved (2) C. difficile colitis: Code(s): A04.72 - Enterocolitis due to Clostridium difficile, not specified as recurrent Status: Acute Assessment and Plan: On PO Vanc day 10/21 Off FMS Diarrhea resolving monitor one more day (3) Hypokalemia: Code(s): E87.6 - Hypokalemia Status: Resolved Assessment and Plan: * Potassium 3.1 * 40 mEq of potassium given 05/08/24: * Stable Potassium now at 3.7. 05/14/2024 Potassium is 3.7. (4) SBO (small bowel obstruction): Code(s): K56.609 - Unspecified intestinal obstruction, unspecified as to partial versus complete obstruction Status: Acute Assessment and Plan: * S/P open incarcerated left inguinal hernia repair with mesh, no bowel ischemia noted * now tolerating diet SUrgery following (5) Atrial fibrillation: Code(s): I48.91 - Unspecified atrial fibrillation Status: Acute Assessment and Plan: * Patient went into AFib 05/03. Rate controlled. * Echo showing EF 50-55%, abnormal diastolic fxn, possible PFO and mild valvular disease. * Cardiology following * Monitor on tele for now. * Eliquis 2.5mg bid (6) Incarcerated left inguinal hernia: Code(s): K40.30 - Unilateral inguinal hernia, with obstruction, without gangrene, not specified as recurrent Status: Acute Assessment and Plan: As above (7) Acute on chronic renal failure: Code(s): N17.9 - Acute kidney failure, unspecified; N18.9 - Chronic kidney disease, unspecified Status: Acute Assessment and Plan: * Creatinine 2.0, improving * Nephrology following * Avoid nephrotoxic medication or testing with IV contrast * Continue fluid restriction * Will remove beasley today 05/14/2024: * Creatinine stable at 1.8 * Creatinine appears to be at baseline (8) Obstructive uropathy: Code(s): N13.9 - Obstructive and reflux uropathy, unspecified Status: Acute Assessment and Plan: * CT Abd/Pelvis 05/02 shows multiple nonobstructing right renal stones, markedly enlarged left kidney with marked, severe chronic hydronephrosis and severe diffuse cortical thinning. There is a large, presumably chronically obstructing stone at the left renal pelvis region measuring 3.0 x 2.0 cm in size. Additional smaller nonobstructing left renal stones are also present. * Renal US showing chronic severe left hydronephrosis and severe left kidney atrophy * UA is not consistent with UTI. * Known finding per patient hx. 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 * [place] this is an incidental finding and not contributing to his current illness * Urology felt the right renal stones should be treated and will arrange for this as outpatient. 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, unspecified Status: Acute Assessment and Plan: * History of PFO * Continue Breztri Plan Full code DVT prophylaxis on Sq Lovenox Awaiting placement Subjective Date/time seen: 05/14/24 10:41 Interval history: Patient was seen during the morning rounds today. No new overnight complaints. No shortness of breath or chest pain. Diarrhea is better. Review of Systems Review of Systems: All systems reviewed & are unremarkable except as noted in HPI and below Exam Narrative: General: In no acute distress, well nourished Head: atraumatic, no encephalopathy Eyes: PERRLA, sclera clear ENT: moist mucous membranes, nasal passages clear Neck: supple, no JVD, no adenopathy, trachea midline Cardiac: Irregular rhythm of Atrial Fibrillation. No murmur, gallops or friction rubs, peripheral pulses intact. Respiratory: Lungs clear to auscultation, no adventitious lung sounds, currently on room air Gastrointestinal: soft, non-distended, non-tender, normoactive bowel sounds. Fecal management system in place : voiding without difficulty per [place]wick. Extremities: moves all extremities well, no edema, good ROM, strength 5/5 Skin: clean, dry, intact. Surgical dressing midline without shadowing. Neuro: Alert and oriented x4, cranial nerves intact, no neuro deficits. Psych: normal mood, normal affect, interactive Objective Data Vital Signs Vital Signs: Vital Signs - 24 hr 05/13/24 14:00 05/13/24 20:00 05/13/24 20:35 Temperature 36.8 C 37.2 C Pulse Rate 81 93 Respiratory Rate 18 20 Blood Pressure 125/71 135/82 Pulse Oximetry 99 99 Oxygen Delivery Room Air Fraction of Inspired Oxygen 96 05/14/24 06:00 05/14/24 07:55 Temperature 37.2 C Pulse Rate 89 86 Respiratory Rate 16 18 Blood Pressure 129/77 Pulse Oximetry 97 97 Oxygen Delivery Room Air Fraction of Inspired Oxygen Intake/Output Intake/Output: Intake & Output 05/11/24 05/12/24 05/13/24 05/14/24 23:59 23:59 23:59 23:59 Intake Total 1430 1938 1270 558 Output Total 975 1850 1300 800 Balance 455 71 -30 -598 Meds/Results Medications: Active Medications Generic Name Dose Route Start Last Admin Trade Name Freq PRN Reason Stop Dose Admin Acetaminophen 650 mg 05/09/24 11:59 Acetaminophen 325 Mg Tablet BY MOUTH Q6H PRN Mild Pain (1-3) or Fever Artificial Tears 1 drop 05/07/24 18:00 05/14/24 10:09 Artificial Tears Ophth Soln 15 Ml Bottle EACH EYE 1 drop TID EVER Administration Ascorbic Acid 1,000 mg 05/07/24 09:00 05/14/24 09:53 Ascorbic Acid 500 Mg Tablet PO 1,000 mg DAILY EVER Administration Atorvastatin Calcium 40 mg 05/07/24 09:00 05/14/24 09:54 Atorvastatin 40 Mg Tablet PO 40 mg QAM EVER Administration Brimonidine Tartrate 1 drop 05/02/24 14:00 05/14/24 05:38 Brimonidine Tartrate 0.2% Op Soln 5 Ml Btl EACH EYE 1 drop Q8HR EVER Administration Brinzolamide 1 drop 05/02/24 14:00 05/14/24 05:38 Brinzolamide 1% Ophth Susp 10 Ml EACH EYE 1 drop Q8HR EVER Administration Cyanocobalamin 1,000 mcg 05/07/24 09:00 05/14/24 09:53 Cyanocobalamin 1,000 Mcg Tablet PO 1,000 mcg DAILY EVER Administration Fluticasone Propionate 1 spray 05/06/24 17:24 Fluticasone Propionate 0.05% Na Spr 16 Gm Btl (*Bkc) NASAL HS PRN nasal congestion Fluticasone/Umeclidinium/Vilanterol 1 puff 05/11/24 08:00 05/14/24 07:55 Fluticasone/Umeclidin/Vilanter 100-62.5-25 Mcg Ellipta INHALATION 1 puff DAILYRT EVER Administration Folic Acid 0.8 mg 05/07/24 09:00 05/14/24 09:54 Folic Acid 0.4 Mg Tablet PO 0.8 mg QAM EVER Administration Heparin Sodium (Porcine) 5,000 units 05/08/24 12:35 05/14/24 09:54 Heparin Sodium 5,000 Units/Ml Vial SUB-Q 5,000 units Q12HR EVER Administration Latanoprost 1 drop 05/02/24 21:00 05/13/24 21:30 Latanoprost 0.005% Op Soln 2.5 Ml Btl RIGHT EYE 1 drop HS EVER Administration Magnesium Oxide 200 mg 05/06/24 21:00 05/13/24 21:20 Magnesium Oxide 200 Mg Tablet PO 200 mg HS EVER Administration Naloxone HCl 0.1 mg 05/03/24 14:22 Naloxone Hcl 0.4 Mg/Ml Vial IV PUSH Q2M PRN Opiate Reversal * Home Med * ( 2 each 05/06/24 20:00 05/14/24 07:55 Breztri Aerosphere) INHALATION 06/05/24 19:59 2 each Budes/Glycopyr/ Q12HRT EVER Administration Formot 160 Mcg-9 Mcg -4.8 Mcg Ondansetron HCl 4 mg 05/02/24 10:09 05/02/24 16:02 Ondansetron Inj 4 Mg/2 Ml Vial IV PUSH 4 mg Q6H PRN Administration Nausea And Vomiting Pantoprazole Sodium 40 mg 05/09/24 09:00 05/14/24 09:54 Pantoprazole 40 Mg Tablet PO 40 mg QAM EVER Administration Sodium Chloride 20 ml 05/03/24 05:52 Central Line Flush IV PUSH PRN PRN after blood draws Tamsulosin HCl 0.4 mg 05/06/24 21:00 05/13/24 21:20 Tamsulosin Hcl 0.4 Mg Capsule PO 0.4 mg QHS EVER Administration Vancomycin HCl 125 mg 05/06/24 06:00 05/14/24 05:38 Vancomycin Hcl 125 Mg Oral Capsule PO 05/16/24 00:01 125 mg Q6HR EVER Administration Radiology Results: ITS Impressions Abdomen X-Ray 05/02/24 06:01 Impression: NG tube in satisfactory position. Suspected small bowel obstruction. Renal Ultrasound 05/02/24 15:30 IMPRESSION: 1. Chronic severe left hydronephrosis. Severe left kidney atrophy. 2. Nonobstructing right kidney stone. Abdomen/Pelvis CT 05/02/24 18:09 IMPRESSION: 1. Small bowel obstruction secondary to a left inguinal hernia containing small bowel. 2. Small volume of ascites. 3. Moderate-sized sliding hiatal hernia. 4. Left kidney stones including a stone in the renal pelvis with chronic severe hydronephrosis and severe kidney atrophy. 5. Nonobstructing right kidney stones. Chest X-Ray 05/13/24 07:56 Impression: Minimal pleural effusions. Probable minimal bibasilar pulmonary edema/atelectasis, especially left lung base. Correlate clinically for pneumonia. Labs Labs: Laboratory Results - last 24 hr 05/14/24 06:26 WBC 5.5 RBC 3.49 L Hgb 9.7 L Hct 30.7 L MCV 88.0 MCH 27.8 MCHC 31.6 L RDW 15.8 H Plt Count 218 MPV 11.2 H Immature Gran % (Auto) 0.7 H Neut % (Auto) 66.1 Lymph % (Auto) 20.4 [place] % (Auto) 9.6 H Eos % (Auto) 2.5 Baso % (Auto) 0.7 Lymph # (Auto) 1.13 [place] # (Auto) 0.5 Eos # (Auto) 0.1 Baso # (Auto) 0.0 Abs Immat Gran (auto) 0.04 H Absolute Neuts (auto) 3.7 Absolute Nucleated RBC 0.000 Nucleated RBC % 0.0 Sodium 135 L Potassium 3.7 Chloride 110 H Carbon Dioxide 23 Anion Gap 2 L BUN 24 H Creatinine 1.80 H Estim Creat Clear Calc 30 Estimated GFR 36 L Glucose 102 Calcium 8.4 Phosphorus 3.3 Magnesium 1.8 Total Bilirubin 0.6 AST 18 ALT 27 Alkaline Phosphatase 56 Total Protein 5.0 L Albumin 2.7 L Quality VTE Prophylaxis VTE prophylaxis: pharmacologic ordered
--- NOTE | 2024-05-14 12:45 | PM.PNNEP ---
Subjective Date/time seen: 05/14/24 12:45 Objective Data Vital Signs Vital Signs: Vital Signs Temp Pulse Resp BP Pulse Ox O2 Del Method FiO2 05/14/24 12:00 98.1 F 95 20 114/57 L 98 05/14/24 07:55 86 18 97 Room Air 05/14/24 06:00 98.9 F 89 16 129/77 97 05/13/24 20:35 99 F 93 20 135/82 99 05/13/24 20:00 Room Air 96 Intake/Output Intake/Output: Intake & Output 05/11/24 05/12/24 05/13/24 05/14/24 23:59 23:59 23:59 23:59 Intake Total 1430 1938 1270 798 Output Total 975 1850 1300 800 Balance 455 88 -30 -2 Meds/Results Medications: Active Medications Generic Name Dose Route Start Last Admin Trade Name Freq PRN Reason Stop Dose Admin Acetaminophen 650 mg 05/09/24 11:59 Acetaminophen 325 Mg Tablet BY MOUTH Q6H PRN Mild Pain (1-3) or Fever Artificial Tears 1 drop 05/07/24 18:00 05/14/24 17:55 Artificial Tears Ophth Soln 15 Ml Bottle EACH EYE 1 drop TID EVER Administration Ascorbic Acid 1,000 mg 05/07/24 09:00 05/14/24 09:53 Ascorbic Acid 500 Mg Tablet PO 1,000 mg DAILY EVER Administration Atorvastatin Calcium 40 mg 05/07/24 09:00 05/14/24 09:54 Atorvastatin 40 Mg Tablet PO 40 mg QAM EVER Administration Brimonidine Tartrate 1 drop 05/02/24 14:00 05/14/24 15:15 Brimonidine Tartrate 0.2% Op Soln 5 Ml Btl EACH EYE 1 drop Q8HR EVER Administration Brinzolamide 1 drop 05/02/24 14:00 05/14/24 15:15 Brinzolamide 1% Ophth Susp 10 Ml EACH EYE 1 drop Q8HR EVER Administration Cyanocobalamin 1,000 mcg 05/07/24 09:00 05/14/24 09:53 Cyanocobalamin 1,000 Mcg Tablet PO 1,000 mcg DAILY EVER Administration Fluticasone Propionate 1 spray 05/06/24 17:24 Fluticasone Propionate 0.05% Na Spr 16 Gm Btl (*Bkc) NASAL HS PRN nasal congestion Fluticasone/Umeclidinium/Vilanterol 1 puff 05/11/24 08:00 05/14/24 07:55 Fluticasone/Umeclidin/Vilanter 100-62.5-25 Mcg Ellipta INHALATION 1 puff DAILYRT EVER Administration Folic Acid 0.8 mg 05/07/24 09:00 05/14/24 09:54 Folic Acid 0.4 Mg Tablet PO 0.8 mg QAM EVER Administration Heparin Sodium (Porcine) 5,000 units 05/08/24 12:35 05/14/24 09:54 Heparin Sodium 5,000 Units/Ml Vial SUB-Q 5,000 units Q12HR EVER Administration Latanoprost 1 drop 05/02/24 21:00 05/13/24 21:30 Latanoprost 0.005% Op Soln 2.5 Ml Btl RIGHT EYE 1 drop HS EVER Administration Magnesium Oxide 200 mg 05/06/24 21:00 05/13/24 21:20 Magnesium Oxide 200 Mg Tablet PO 200 mg HS EVER Administration Naloxone HCl 0.1 mg 05/03/24 14:22 Naloxone Hcl 0.4 Mg/Ml Vial IV PUSH Q2M PRN Opiate Reversal * Home Med * ( 2 each 05/06/24 20:00 05/14/24 07:55 Breztri Aerosphere) INHALATION 06/05/24 19:59 2 each Budes/Glycopyr/ Q12HRT EVER Administration Formot 160 Mcg-9 Mcg -4.8 Mcg Ondansetron HCl 4 mg 05/02/24 10:09 05/02/24 16:02 Ondansetron Inj 4 Mg/2 Ml Vial IV PUSH 4 mg Q6H PRN Administration Nausea And Vomiting Pantoprazole Sodium 40 mg 05/09/24 09:00 05/14/24 09:54 Pantoprazole 40 Mg Tablet PO 40 mg QAM EVER Administration Sodium Chloride 20 ml 05/03/24 05:52 Central Line Flush IV PUSH PRN PRN after blood draws Tamsulosin HCl 0.4 mg 05/06/24 21:00 05/13/24 21:20 Tamsulosin Hcl 0.4 Mg Capsule PO 0.4 mg QHS EVER Administration Vancomycin HCl 125 mg 05/06/24 06:00 05/14/24 18:05 Vancomycin Hcl 125 Mg Oral Capsule PO 05/16/24 00:01 125 mg Q6HR EVER Administration Radiology Results: ITS Impressions Abdomen X-Ray 05/02/24 06:01 Impression: NG tube in satisfactory position. Suspected small bowel obstruction. Renal Ultrasound 05/02/24 15:30 IMPRESSION: 1. Chronic severe left hydronephrosis. Severe left kidney atrophy. 2. Nonobstructing right kidney stone. Abdomen/Pelvis CT 05/02/24 18:09 IMPRESSION: 1. Small bowel obstruction secondary to a left inguinal hernia containing small bowel. 2. Small volume of ascites. 3. Moderate-sized sliding hiatal hernia. 4. Left kidney stones including a stone in the renal pelvis with chronic severe hydronephrosis and severe kidney atrophy. 5. Nonobstructing right kidney stones. Chest X-Ray 05/13/24 07:56 Impression: Minimal pleural effusions. Probable minimal bibasilar pulmonary edema/atelectasis, especially left lung base. Correlate clinically for pneumonia. Labs Labs: Laboratory Tests 05/14/24 06:26 05/14/24 06:26 Calcium 8.4 Phosphorus 3.3 Magnesium 1.8 Total Bilirubin 0.6 AST 18 ALT 27 Alkaline Phosphatase 56 Total Protein 5.0 L Albumin 2.7 L
[2024-05-14 14:00] VITALS: BP 114/57; PULSE 95; RESP 20; TEMP 36.7; O2SAT 98
[2024-05-14 20:52] VITALS: BP 128/76; PULSE 93; RESP 18; TEMP 37.1; O2SAT 98
[2024-05-14] MEDS: TAMSULOSIN HCL 0.4 MG CAPSULE PO (21:00)
[2024-05-14] MEDS: MAGNESIUM OXIDE 200 MG TABLET PO (21:00)
[2024-05-14] MEDS: LATANOPROST 0.005% OP SOLN 2.5 ML BTL 1 DROP RIGHT EYE (21:01)
[2024-05-15] MEDS: VANCOMYCIN HCL 125 MG ORAL CAPSULE PO ×3 (05:29→18:35)
[2024-05-15] MEDS: BRINZOLAMIDE 1% OPHTH SUSP 10 ML 1 DROP EACH EYE ×3 (05:30→21:51)
[2024-05-15] MEDS: BRIMONIDINE TARTRATE 0.2% OP SOLN 5 ML BTL 1 DROP EACH EYE ×3 (05:30→21:51)
[2024-05-15 06:00] VITALS: BP 122/69; PULSE 97; RESP 12; TEMP 36.6; O2SAT 96
[2024-05-15 06:45] LABS: Alanine Aminotransferase 31 U/L (6-50); Alkaline Phosphatase 56 U/L (38-126); Anion Gap 1 mmol/L (4-12); Aspartate Amino Transferase 20 U/L (17-59); Bilirubin,Total 0.7 mg/dL (0.2-1.3); Blood Urea Nitrogen 24 mg/dL (9-20); Calcium 8.8 mg/dL (8.4-10.2); Carbon Dioxide 24 mmol/L (22-30); Chloride 109 mmol/L (98-107); Estimated CRCL calculation 32 ml/min; Estimated Glomerular Filt Rate 34; Glucose 108 mg/dL (65-110); Magnesium 1.8 mg/dL (1.6-2.3); Phosphorus 3.4 mg/dL (2.5-4.5); Potassium 4.2 mmol/L (3.4-5.0); Sodium 134 mmol/L (137-145)
[2024-05-15] MEDS: CYANOCOBALAMIN 1,000 MCG TABLET 1000 MCG PO (09:44)
[2024-05-15] MEDS: HEPARIN SODIUM 5,000 UNITS/ML VIAL 5000 UNITS SUB-Q ×2 (09:44→21:50)
[2024-05-15] MEDS: FOLIC ACID 0.4 MG TABLET 0.8 MG PO (09:44)
[2024-05-15] MEDS: PANTOPRAZOLE 40 MG TABLET PO (09:44)
[2024-05-15] MEDS: ASCORBIC ACID 500 MG TABLET 1000 MG PO (09:44)
[2024-05-15] MEDS: ARTIFICIAL TEARS OPHTH SOLN 15 ML BOTTLE 1 DROP EACH EYE ×3 (09:44→18:40)
[2024-05-15] MEDS: ATORVASTATIN 40 MG TABLET PO (09:44)
[2024-05-15 09:56] LABS: Basophils Percent Auto 0.6 % (0.2-1.2); Eosinophils Absolute Auto 0.1 K/mm3 (0-0.3); Eosinophils Percent Auto 1.5 % (0-4.4); Hematocrit 34.6 % (42.0-52.0); Hemoglobin 10.9 g/dL (14.0-18.0); Immature Granulocyte Absolute 0.04 K/mm3 (0.00-0.031); Immature Granulocyte Percent A 0.6 % (0-0.5); Lymphocytes Absolute Auto 0.88 K/mm3 (0.9-3.2); Lymphocytes Percent Auto 12.4 % (18.3-44.2); Mean Corpuscular HGB Conc 31.5 g/dl (32-36); Mean Corpuscular Hemoglobin 28.2 pg (26-34); Mean Corpuscular Volume 89.4 fl (80-100); Mean Platelet Volume 11.9 fl (7.4-10.4); Monocytes Absolute Auto 0.7 K/mm3 (0.1-0.6); Monocytes Percent Auto 9.4 % (2.6-8.5); Neutrophils Absolute Auto 5.4 K/mm3 (1.3-6.7); Neutrophils Percent Auto 75.5 % (45.5-73.1); Platelet Count Result 178 k/mm3 (150-375); Red Blood Count 3.87 M/mm3 (4.6-6.20); Red Cell Distribution Width 15.9 % (11.5-14.5); White Blood Count 7.1 K/mm3 (4.5-10.0)
--- NOTE | 2024-05-15 10:06 | P.PNIM_ITS ---
Progress Note: A&P Assessment and Plan (1) Shock: Code(s): R57.9 - Shock, unspecified Status: Resolved Assessment and Plan: S/p IVF and pressors Intially on Cefepime, Flagyl and Vancomycin, now transitioned to PO Vanc sepsis from C diff thus patient on PO Vanc now Blood cultures negative Resolved (2) C. difficile colitis: Code(s): A04.72 - Enterocolitis due to Clostridium difficile, not specified as recurrent Status: Acute Assessment and Plan: On PO Vanc day 01/21 Off FMS Diarrhea resolving monitor one more day (3) Hypokalemia: Code(s): E87.6 - Hypokalemia Status: Resolved Assessment and Plan: * Potassium 4.2 (4) SBO (small bowel obstruction): Code(s): K56.609 - Unspecified intestinal obstruction, unspecified as to partial versus complete obstruction Status: Acute Assessment and Plan: * S/P open incarcerated left inguinal hernia repair with mesh, no bowel ischemia noted * now tolerating diet SUrgery following (5) Atrial fibrillation: Code(s): I48.91 - Unspecified atrial fibrillation Status: Acute Assessment and Plan: * Patient went into AFib 05/03. Rate controlled. * Echo showing EF 50-55%, abnormal diastolic fxn, possible PFO and mild valvular disease. * Cardiology following * Monitor on tele for now. * Eliquis 2.5mg bid (6) Incarcerated left inguinal hernia: Code(s): K40.30 - Unilateral inguinal hernia, with obstruction, without gangrene, not specified as recurrent Status: Acute Assessment and Plan: As above (7) Acute on chronic renal failure: Code(s): N17.9 - Acute kidney failure, unspecified; N18.9 - Chronic kidney disease, unspecified Status: Acute Assessment and Plan: * Creatinine 1.9, improving * Nephrology following * Avoid nephrotoxic medication or testing with IV contrast * Will remove beasley today 05/14/2024: * Creatinine stable at 1.8 * Creatinine appears to be at baseline (8) Obstructive uropathy: Code(s): N13.9 - Obstructive and reflux uropathy, unspecified Status: Acute Assessment and Plan: * CT Abd/Pelvis 05/02 shows multiple nonobstructing right renal stones, markedly enlarged left kidney with marked, severe chronic hydronephrosis and severe diffuse cortical thinning. There is a large, presumably chronically obstructing stone at the left renal pelvis region measuring 3.0 x 2.0 cm in size. Additional smaller nonobstructing left renal stones are also present. * Renal US showing chronic severe left hydronephrosis and severe left kidney atrophy * UA is not consistent with UTI. * Known finding per patient hx. 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 * [place] this is an incidental finding and not contributing to his current illness * Urology felt the right renal stones should be treated and will arrange for this as outpatient. 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 patient is on vancomycin 125 mg p.o. q.6 hours and will complete the course on tomorrow. Possible discharge to home with home health care Exam Narrative: General: In no acute distress, well nourished Head: atraumatic, no encephalopathy Eyes: PERRLA, sclera clear ENT: moist mucous membranes, nasal passages clear Neck: supple, no JVD, no adenopathy, trachea midline Cardiac: Irregular rhythm of Atrial Fibrillation. No murmur, gallops or friction rubs, peripheral pulses intact. Respiratory: Lungs clear to auscultation, no adventitious lung sounds, currently on room air Gastrointestinal: soft, non-distended, non-tender, normoactive bowel sounds. Fecal management system in place : voiding without difficulty per purewick. Extremities: moves all extremities well, no edema, good ROM, strength 5/5 Skin: clean, dry, intact. Surgical dressing midline without shadowing. Neuro: Alert and oriented x4, cranial nerves intact, no neuro deficits. Psych: normal mood, normal affect, interactive Objective Data Vital Signs Vital Signs: Vital Signs - 24 hr 05/14/24 14:00 05/14/24 20:48 05/14/24 20:52 Temperature 98.1 F 98.7 F Pulse Rate 95 93 Respiratory Rate 20 18 Blood Pressure 114/57 L 128/76 Pulse Oximetry 98 98 Oxygen Delivery Room Air 05/15/24 06:00 Temperature 97.8 F Pulse Rate 97 Respiratory Rate 12 Blood Pressure 122/69 Pulse Oximetry 96 Oxygen Delivery Intake/Output Intake/Output: Intake & Output 05/12/24 05/13/24 05/14/24 05/15/24 23:59 23:59 23:59 23:59 Intake Total 1938 1270 1038 650 Output Total 1850 1300 800 200 Balance 88 -30 238 450 Meds/Results Medications: Active Medications Generic Name Dose Route Start Last Admin Trade Name Freq PRN Reason Stop Dose Admin Acetaminophen 650 mg 05/09/24 11:59 Acetaminophen 325 Mg Tablet BY MOUTH Q6H PRN Mild Pain (1-3) or Fever Artificial Tears 1 drop 05/07/24 18:00 05/15/24 09:44 Artificial Tears Ophth Soln 15 Ml Bottle EACH EYE 1 drop TID EVER Administration Ascorbic Acid 1,000 mg 05/07/24 09:00 05/15/24 09:44 Ascorbic Acid 500 Mg Tablet PO 1,000 mg DAILY EVER Administration Atorvastatin Calcium 40 mg 05/07/24 09:00 05/15/24 09:44 Atorvastatin 40 Mg Tablet PO 40 mg QAM EVER Administration Brimonidine Tartrate 1 drop 05/02/24 14:00 05/15/24 05:30 Brimonidine Tartrate 0.2% Op Soln 5 Ml Btl EACH EYE 1 drop Q8HR EVER Administration Brinzolamide 1 drop 05/02/24 14:00 05/15/24 05:30 Brinzolamide 1% Ophth Susp 10 Ml EACH EYE 1 drop Q8HR EVER Administration Cyanocobalamin 1,000 mcg 05/07/24 09:00 05/15/24 09:44 Cyanocobalamin 1,000 Mcg Tablet PO 1,000 mcg DAILY EVER Administration Fluticasone Propionate 1 spray 05/06/24 17:24 Fluticasone Propionate 0.05% Na Spr 16 Gm Btl (*Bkc) NASAL HS PRN nasal congestion Fluticasone/Umeclidinium/Vilanterol 1 puff 05/11/24 08:00 05/15/24 08:29 Fluticasone/Umeclidin/Vilanter 100-62.5-25 Mcg Ellipta INHALATION Not Given DAILYRT EVER Folic Acid 0.8 mg 05/07/24 09:00 05/15/24 09:44 Folic Acid 0.4 Mg Tablet PO 0.8 mg QAM EVER Administration Heparin Sodium (Porcine) 5,000 units 05/08/24 12:35 05/15/24 09:44 Heparin Sodium 5,000 Units/Ml Vial SUB-Q 5,000 units Q12HR EVER Administration Latanoprost 1 drop 05/02/24 21:00 05/14/24 21:01 Latanoprost 0.005% Op Soln 2.5 Ml Btl RIGHT EYE 1 drop HS EVER Administration Magnesium Oxide 200 mg 05/06/24 21:00 05/14/24 21:00 Magnesium Oxide 200 Mg Tablet PO 200 mg HS EVER Administration Naloxone HCl 0.1 mg 05/03/24 14:22 Naloxone Hcl 0.4 Mg/Ml Vial IV PUSH Q2M PRN Opiate Reversal * Home Med * ( 2 each 05/15/24 20:00 Breztri Aerosphere) INHALATION 06/05/24 19:59 Budes/Glycopyr/ Q12HRT EVER Formot 160 Mcg-9 Mcg -4.8 Mcg Ondansetron HCl 4 mg 05/02/24 10:09 05/02/24 16:02 Ondansetron Inj 4 Mg/2 Ml Vial IV PUSH 4 mg Q6H PRN Administration Nausea And Vomiting Pantoprazole Sodium 40 mg 05/09/24 09:00 05/15/24 09:44 Pantoprazole 40 Mg Tablet PO 40 mg QAM EVER Administration Sodium Chloride 20 ml 05/03/24 05:52 Central Line Flush IV PUSH PRN PRN after blood draws Tamsulosin HCl 0.4 mg 05/06/24 21:00 05/14/24 21:00 Tamsulosin Hcl 0.4 Mg Capsule PO 0.4 mg QHS EVER Administration Vancomycin HCl 125 mg 05/06/24 06:00 05/15/24 05:29 Vancomycin Hcl 125 Mg Oral Capsule PO 05/16/24 00:01 125 mg Q6HR EVER Administration Radiology Results: ITS Impressions Abdomen X-Ray 05/02/24 06:01 Impression: NG tube in satisfactory position. Suspected small bowel obstruction. Renal Ultrasound 05/02/24 15:30 IMPRESSION: 1. Chronic severe left hydronephrosis. Severe left kidney atrophy. 2. Nonobstructing right kidney stone. Abdomen/Pelvis CT 05/02/24 18:09 IMPRESSION: 1. Small bowel obstruction secondary to a left inguinal hernia containing small bowel. 2. Small volume of ascites. 3. Moderate-sized sliding hiatal hernia. 4. Left kidney stones including a stone in the renal pelvis with chronic severe hydronephrosis and severe kidney atrophy. 5. Nonobstructing right kidney stones. Chest X-Ray 05/13/24 07:56 Impression: Minimal pleural effusions. Probable minimal bibasilar pulmonary edema/atelectasis, especially left lung base. Correlate clinically for pneumonia. Labs Labs: Laboratory Results - last 24 hr 05/15/24 06:05 WBC 7.1 RBC 3.87 L Hgb 10.9 L Hct 34.6 L MCV 89.4 MCH 28.2 MCHC 31.5 L RDW 15.9 H Plt Count 178 MPV 11.9 H Immature Gran % (Auto) 0.6 H Neut % (Auto) 75.5 H Lymph % (Auto) 12.4 L Mcminn % (Auto) 9.4 H Eos % (Auto) 1.5 Baso % (Auto) 0.6 Lymph # (Auto) 0.88 L Mcminn # (Auto) 0.7 H Eos # (Auto) 0.1 Baso # (Auto) 0.0 Abs Immat Gran (auto) 0.04 H Absolute Neuts (auto) 5.4 Absolute Nucleated RBC 0.000 Nucleated RBC % 0.0 Sodium 134 L Potassium 4.2 Chloride 109 H Carbon Dioxide 24 Anion Gap 1 L BUN 24 H Creatinine 1.90 H Estim Creat Clear Calc 32 Estimated GFR 34 L Glucose 108 Calcium 8.8 Phosphorus 3.4 Magnesium 1.8 Total Bilirubin 0.7 AST 20 ALT 31 Alkaline Phosphatase 56 Total Protein 6.0 L Albumin 3.0 L Hospitalist MIPS Advance Care Plan I have confirmed that the patient's Advanced Care Plan is present, code status is documented, or surrogate decision maker is listed in patient medical record.: Yes Medication Reconciliation I have utilized all available resources to obtain, update and review the patients current medications (includes all prescriptions, OTC, herbals, cannabis, and nutritional supplements).: Yes
--- NOTE | 2024-05-15 13:55 | PM.PNNEP ---
Subjective Date/time seen: 05/15/24 13:55 Objective Data Vital Signs Vital Signs: Vital Signs Temp Pulse Resp BP Pulse Ox O2 Del Method 05/15/24 13:00 99.0 F 91 18 107/66 99 05/15/24 06:00 97.8 F 97 12 122/69 96 05/14/24 20:52 98.7 F 93 18 128/76 98 05/14/24 20:48 Room Air Intake/Output Intake/Output: Intake & Output 05/12/24 05/13/24 05/14/24 05/15/24 23:59 23:59 23:59 23:59 Intake Total 1938 1270 1038 1090 Output Total 1850 1300 800 750 Balance 88 -30 238 340 Meds/Results Medications: Active Medications Generic Name Dose Route Start Last Admin Trade Name Freq PRN Reason Stop Dose Admin Acetaminophen 650 mg 05/09/24 11:59 Acetaminophen 325 Mg Tablet BY MOUTH Q6H PRN Mild Pain (1-3) or Fever Artificial Tears 1 drop 05/07/24 18:00 05/15/24 13:10 Artificial Tears Ophth Soln 15 Ml Bottle EACH EYE 1 drop TID EVER Administration Ascorbic Acid 1,000 mg 05/07/24 09:00 05/15/24 09:44 Ascorbic Acid 500 Mg Tablet PO 1,000 mg DAILY EVER Administration Atorvastatin Calcium 40 mg 05/07/24 09:00 05/15/24 09:44 Atorvastatin 40 Mg Tablet PO 40 mg QAM EVER Administration Brimonidine Tartrate 1 drop 05/02/24 14:00 05/15/24 13:10 Brimonidine Tartrate 0.2% Op Soln 5 Ml Btl EACH EYE 1 drop Q8HR EVER Administration Brinzolamide 1 drop 05/02/24 14:00 05/15/24 13:10 Brinzolamide 1% Ophth Susp 10 Ml EACH EYE 1 drop Q8HR EVER Administration Cyanocobalamin 1,000 mcg 05/07/24 09:00 05/15/24 09:44 Cyanocobalamin 1,000 Mcg Tablet PO 1,000 mcg DAILY EVER Administration Fluticasone Propionate 1 spray 05/06/24 17:24 Fluticasone Propionate 0.05% Na Spr 16 Gm Btl (*Bkc) NASAL HS PRN nasal congestion Fluticasone/Umeclidinium/Vilanterol 1 puff 05/11/24 08:00 05/15/24 08:29 Fluticasone/Umeclidin/Vilanter 100-62.5-25 Mcg Ellipta INHALATION Not Given DAILYRT EVER Folic Acid 0.8 mg 05/07/24 09:00 05/15/24 09:44 Folic Acid 0.4 Mg Tablet PO 0.8 mg QAM EVER Administration Heparin Sodium (Porcine) 5,000 units 05/08/24 12:35 05/15/24 09:44 Heparin Sodium 5,000 Units/Ml Vial SUB-Q 5,000 units Q12HR EVER Administration Latanoprost 1 drop 05/02/24 21:00 05/14/24 21:01 Latanoprost 0.005% Op Soln 2.5 Ml Btl RIGHT EYE 1 drop HS EVER Administration Magnesium Oxide 200 mg 05/06/24 21:00 05/14/24 21:00 Magnesium Oxide 200 Mg Tablet PO 200 mg HS EVER Administration Naloxone HCl 0.1 mg 05/03/24 14:22 Naloxone Hcl 0.4 Mg/Ml Vial IV PUSH Q2M PRN Opiate Reversal * Home Med * ( 2 each 05/15/24 20:00 Breztri Aerosphere) INHALATION 06/05/24 19:59 Budes/Glycopyr/ Q12HRT EVER Formot 160 Mcg-9 Mcg -4.8 Mcg Ondansetron HCl 4 mg 05/02/24 10:09 05/02/24 16:02 Ondansetron Inj 4 Mg/2 Ml Vial IV PUSH 4 mg Q6H PRN Administration Nausea And Vomiting Pantoprazole Sodium 40 mg 05/09/24 09:00 05/15/24 09:44 Pantoprazole 40 Mg Tablet PO 40 mg QAM EVER Administration Sodium Chloride 20 ml 05/03/24 05:52 Central Line Flush IV PUSH PRN PRN after blood draws Tamsulosin HCl 0.4 mg 05/06/24 21:00 05/14/24 21:00 Tamsulosin Hcl 0.4 Mg Capsule PO 0.4 mg QHS EVER Administration Vancomycin HCl 125 mg 05/06/24 06:00 05/15/24 13:09 Vancomycin Hcl 125 Mg Oral Capsule PO 05/16/24 00:01 125 mg Q6HR EVER Administration Radiology Results: ITS Impressions Abdomen X-Ray 05/02/24 06:01 Impression: NG tube in satisfactory position. Suspected small bowel obstruction. Renal Ultrasound 05/02/24 15:30 IMPRESSION: 1. Chronic severe left hydronephrosis. Severe left kidney atrophy. 2. Nonobstructing right kidney stone. Abdomen/Pelvis CT 05/02/24 18:09 IMPRESSION: 1. Small bowel obstruction secondary to a left inguinal hernia containing small bowel. 2. Small volume of ascites. 3. Moderate-sized sliding hiatal hernia. 4. Left kidney stones including a stone in the renal pelvis with chronic severe hydronephrosis and severe kidney atrophy. 5. Nonobstructing right kidney stones. Chest X-Ray 05/13/24 07:56 Impression: Minimal pleural effusions. Probable minimal bibasilar pulmonary edema/atelectasis, especially left lung base. Correlate clinically for pneumonia. Labs Labs: Laboratory Tests 05/15/24 06:05 05/15/24 06:05 Calcium 8.8 Phosphorus 3.4 Magnesium 1.8 Total Bilirubin 0.7 AST 20 ALT 31 Alkaline Phosphatase 56 Total Protein 6.0 L Albumin 3.0 L
[2024-05-15 14:00] VITALS: BP 107/66; PULSE 91; RESP 18; TEMP 37.2; O2SAT 99
[2024-05-15 21:34] VITALS: BP 127/71; PULSE 84; RESP 16; TEMP 36.8; O2SAT 97
[2024-05-15] MEDS: MAGNESIUM OXIDE 200 MG TABLET PO (21:50)
[2024-05-15] MEDS: TAMSULOSIN HCL 0.4 MG CAPSULE PO (21:50)
[2024-05-15] MEDS: LATANOPROST 0.005% OP SOLN 2.5 ML BTL 1 DROP RIGHT EYE (21:50)
[2024-05-16] MEDS: VANCOMYCIN HCL 125 MG ORAL CAPSULE PO
[2024-05-16 06:00] VITALS: BP 121/79; PULSE 90; RESP 16; TEMP 36.7; O2SAT 98
[2024-05-16] MEDS: BRIMONIDINE TARTRATE 0.2% OP SOLN 5 ML BTL 1 DROP EACH EYE ×2 (07:25→22:00)
[2024-05-16] MEDS: BRINZOLAMIDE 1% OPHTH SUSP 10 ML 1 DROP EACH EYE ×2 (07:25→22:00)
[2024-05-16 08:20] LABS: Basophils Absolute Auto 0.1 K/mm3 (0.0-0.1); Basophils Percent Auto 0.8 % (0.2-1.2); Eosinophils Absolute Auto 0.1 K/mm3 (0-0.3); Hematocrit 33.8 % (42.0-52.0); Hemoglobin 10.8 g/dL (14.0-18.0); Immature Granulocyte Absolute 0.02 K/mm3 (0.00-0.031); Immature Granulocyte Percent A 0.3 % (0-0.5); Lymphocytes Absolute Auto 0.85 K/mm3 (0.9-3.2); Lymphocytes Percent Auto 14.1 % (18.3-44.2); Mean Corpuscular Hemoglobin 28.2 pg (26-34); Mean Corpuscular Volume 88.3 fl (80-100); Mean Platelet Volume 10.5 fl (7.4-10.4); Monocytes Absolute Auto 0.6 K/mm3 (0.1-0.6); Monocytes Percent Auto 10.3 % (2.6-8.5); Neutrophils Absolute Auto 4.4 K/mm3 (1.3-6.7); Neutrophils Percent Auto 72.5 % (45.5-73.1); Platelet Count Result 248 k/mm3 (150-375); Red Blood Count 3.83 M/mm3 (4.6-6.20); Red Cell Distribution Width 15.5 % (11.5-14.5)
[2024-05-16] MEDS: HEPARIN SODIUM 5,000 UNITS/ML VIAL 5000 UNITS SUB-Q ×2 (09:33→20:47)
[2024-05-16] MEDS: ATORVASTATIN 40 MG TABLET PO (09:33)
[2024-05-16] MEDS: PANTOPRAZOLE 40 MG TABLET PO (09:33)
[2024-05-16] MEDS: CYANOCOBALAMIN 1,000 MCG TABLET 1000 MCG PO (09:34)
[2024-05-16] MEDS: ARTIFICIAL TEARS OPHTH SOLN 15 ML BOTTLE 1 DROP EACH EYE (09:34)
[2024-05-16] MEDS: FOLIC ACID 0.4 MG TABLET 0.8 MG PO (09:34)
[2024-05-16] MEDS: ASCORBIC ACID 500 MG TABLET 1000 MG PO (09:34)
[2024-05-16 09:35] LABS: Alanine Aminotransferase 28 U/L (6-50); Alkaline Phosphatase 61 U/L (38-126); Anion Gap 2 mmol/L (4-12); Aspartate Amino Transferase 20 U/L (17-59); Bilirubin,Total 0.8 mg/dL (0.2-1.3); Blood Urea Nitrogen 22 mg/dL (9-20); Calcium 8.9 mg/dL (8.4-10.2); Carbon Dioxide 23 mmol/L (22-30); Chloride 109 mmol/L (98-107); Estimated CRCL calculation 32 ml/min; Estimated Glomerular Filt Rate 34; Glucose 106 mg/dL (65-110); Magnesium 1.7 mg/dL (1.6-2.3); Phosphorus 3.3 mg/dL (2.5-4.5); Potassium 4.2 mmol/L (3.4-5.0); Sodium 134 mmol/L (137-145)
--- NOTE | 2024-05-16 12:23 | PM.PNNEP ---
Subjective Date/time seen: 05/16/24 12:23 Objective Data Vital Signs Vital Signs: Vital Signs Temp Pulse Resp BP Pulse Ox 05/16/24 06:00 98.1 F 90 16 121/79 98 05/15/24 21:34 98.2 F 84 16 127/71 97 Intake/Output Intake/Output: Intake & Output 05/13/24 05/14/24 05/15/24 05/16/24 23:59 23:59 23:59 23:59 Intake Total 1270 1038 1330 790 Output Total 1300 800 750 150 Balance -30 238 580 640 Meds/Results Medications: Active Medications Generic Name Dose Route Start Last Admin Trade Name Freq PRN Reason Stop Dose Admin Acetaminophen 650 mg 05/09/24 11:59 Acetaminophen 325 Mg Tablet BY MOUTH Q6H PRN Mild Pain (1-3) or Fever Artificial Tears 1 drop 05/07/24 18:00 05/16/24 09:34 Artificial Tears Ophth Soln 15 Ml Bottle EACH EYE 1 drop TID EVER Administration Ascorbic Acid 1,000 mg 05/07/24 09:00 05/16/24 09:34 Ascorbic Acid 500 Mg Tablet PO 1,000 mg DAILY EVER Administration Atorvastatin Calcium 40 mg 05/07/24 09:00 05/16/24 09:33 Atorvastatin 40 Mg Tablet PO 40 mg QAM EVER Administration Brimonidine Tartrate 1 drop 05/02/24 14:00 05/16/24 07:25 Brimonidine Tartrate 0.2% Op Soln 5 Ml Btl EACH EYE 1 drop Q8HR EVER Administration Brinzolamide 1 drop 05/02/24 14:00 05/16/24 07:25 Brinzolamide 1% Ophth Susp 10 Ml EACH EYE 1 drop Q8HR EVER Administration Cyanocobalamin 1,000 mcg 05/07/24 09:00 05/16/24 09:34 Cyanocobalamin 1,000 Mcg Tablet PO 1,000 mcg DAILY EVER Administration Fluticasone Propionate 1 spray 05/06/24 17:24 Fluticasone Propionate 0.05% Na Spr 16 Gm Btl (*Bkc) NASAL HS PRN nasal congestion Fluticasone/Umeclidinium/Vilanterol 1 puff 05/11/24 08:00 05/16/24 08:57 Fluticasone/Umeclidin/Vilanter 100-62.5-25 Mcg Ellipta INHALATION Not Given DAILYRT EVER Folic Acid 0.8 mg 05/07/24 09:00 05/16/24 09:34 Folic Acid 0.4 Mg Tablet PO 0.8 mg QAM EVER Administration Furosemide 40 mg 05/17/24 09:00 Furosemide 40 Mg Tablet PO 05/19/24 09:01 DAILY EVER Heparin Sodium (Porcine) 5,000 units 05/08/24 12:35 05/16/24 09:33 Heparin Sodium 5,000 Units/Ml Vial SUB-Q 5,000 units Q12HR EVER Administration Latanoprost 1 drop 05/02/24 21:00 05/15/24 21:50 Latanoprost 0.005% Op Soln 2.5 Ml Btl RIGHT EYE 1 drop HS EVER Administration Magnesium Oxide 200 mg 05/06/24 21:00 05/15/24 21:50 Magnesium Oxide 200 Mg Tablet PO 200 mg HS EVER Administration Naloxone HCl 0.1 mg 05/03/24 14:22 Naloxone Hcl 0.4 Mg/Ml Vial IV PUSH Q2M PRN Opiate Reversal * Home Med * ( 2 each 05/15/24 20:00 05/15/24 21:51 Breztri Aerosphere) INHALATION 06/05/24 19:59 2 each Budes/Glycopyr/ Q12HRT EVER Administration Formot 160 Mcg-9 Mcg -4.8 Mcg Ondansetron HCl 4 mg 05/02/24 10:09 05/02/24 16:02 Ondansetron Inj 4 Mg/2 Ml Vial IV PUSH 4 mg Q6H PRN Administration Nausea And Vomiting Pantoprazole Sodium 40 mg 05/09/24 09:00 05/16/24 09:33 Pantoprazole 40 Mg Tablet PO 40 mg QAM EVER Administration Sodium Chloride 20 ml 05/03/24 05:52 Central Line Flush IV PUSH PRN PRN after blood draws Tamsulosin HCl 0.4 mg 05/06/24 21:00 05/15/24 21:50 Tamsulosin Hcl 0.4 Mg Capsule PO 0.4 mg QHS EVER Administration Radiology Results: ITS Impressions Abdomen X-Ray 05/02/24 06:01 Impression: NG tube in satisfactory position. Suspected small bowel obstruction. Renal Ultrasound 05/02/24 15:30 IMPRESSION: 1. Chronic severe left hydronephrosis. Severe left kidney atrophy. 2. Nonobstructing right kidney stone. Abdomen/Pelvis CT 05/02/24 18:09 IMPRESSION: 1. Small bowel obstruction secondary to a left inguinal hernia containing small bowel. 2. Small volume of ascites. 3. Moderate-sized sliding hiatal hernia. 4. Left kidney stones including a stone in the renal pelvis with chronic severe hydronephrosis and severe kidney atrophy. 5. Nonobstructing right kidney stones. Chest X-Ray 05/13/24 07:56 Impression: Minimal pleural effusions. Probable minimal bibasilar pulmonary edema/atelectasis, especially left lung base. Correlate clinically for pneumonia. Labs Labs: Laboratory Tests 05/16/24 08:03 05/16/24 08:03 Calcium 8.9 Phosphorus 3.3 Magnesium 1.7 Total Bilirubin 0.8 AST 20 ALT 28 Alkaline Phosphatase 61 Total Protein 6.0 L Albumin 3.0 L
--- NOTE | 2024-05-16 13:47 | P.PNIM_ITS ---
Progress Note: A&P Assessment and Plan (1) Shock: Code(s): R57.9 - Shock, unspecified Status: Resolved Assessment and Plan: S/p IVF and pressors Intially on Cefepime, Flagyl and p.o. Vancomycin Blood cultures negative Resolved (2) C. difficile colitis: Code(s): A04.72 - Enterocolitis due to Clostridium difficile, not specified as recurrent Status: Acute Assessment and Plan: Completed vancomycin Off FMS Diarrhea resolving monitor one more day (3) Hypokalemia: Code(s): E87.6 - Hypokalemia Status: Resolved Assessment and Plan: * Potassium 4.2 (4) SBO (small bowel obstruction): Code(s): K56.609 - Unspecified intestinal obstruction, unspecified as to partial versus complete obstruction Status: Acute Assessment and Plan: * S/P open incarcerated left inguinal hernia repair with mesh, no bowel ischemia noted * now tolerating diet SUrgery following (5) Atrial fibrillation: Code(s): I48.91 - Unspecified atrial fibrillation Status: Acute Assessment and Plan: * Patient went into AFib 05/03. Rate controlled. * Echo showing EF 50-55%, abnormal diastolic fxn, possible PFO and mild valvular disease. * Cardiology following * Monitor on tele for now. * Eliquis 2.5mg bid (6) Incarcerated left inguinal hernia: Code(s): K40.30 - Unilateral inguinal hernia, with obstruction, without gangrene, not specified as recurrent Status: Acute Assessment and Plan: As above (7) Acute on chronic renal failure: Code(s): N17.9 - Acute kidney failure, unspecified; N18.9 - Chronic kidney disease, unspecified Status: Acute Assessment and Plan: * Creatinine 1.9, improving * Nephrology following * Avoid nephrotoxic medication or testing with IV contrast * Will remove beasley today (8) Obstructive uropathy: Code(s): N13.9 - Obstructive and reflux uropathy, unspecified Status: Acute Assessment and Plan: * CT Abd/Pelvis 05/02 shows multiple nonobstructing right renal stones, markedly enlarged left kidney with marked, severe chronic hydronephrosis and severe diffuse cortical thinning. There is a large, presumably chronically obstructing stone at the left renal pelvis region measuring 3.0 x 2.0 cm in size. Additional smaller nonobstructing left renal stones are also present. * Renal US showing chronic severe left hydronephrosis and severe left kidney atrophy * UA is not consistent with UTI. * Known finding per patient hx. 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 * [place] this is an incidental finding and not contributing to his current illness * Urology felt the right renal stones should be treated and will arrange for this as outpatient. 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 for 3 days Appreciate surgery input Plan Full code DVT prophylaxis on Sq Lovenox Awaiting placement Subjective Date/time seen: 05/16/24 13:47 Interval history: Patient completed oral vancomycin. Patient has scrotal edema. Ordered US and Lasix 40 mg x 3 days. Exam Narrative: General: In no acute distress, well nourished Head: atraumatic, no encephalopathy Eyes: PERRLA, sclera clear ENT: moist mucous membranes, nasal passages clear Neck: supple, no JVD, no adenopathy, trachea midline Cardiac: Irregular rhythm of Atrial Fibrillation. No murmur, gallops or friction rubs, peripheral pulses intact. Respiratory: Lungs clear to auscultation, no adventitious lung sounds, currently on room air Gastrointestinal: soft, non-distended, non-tender, normoactive bowel sounds. : voiding without difficulty per purewick.Scrotal edema Extremities: moves all extremities well, no edema, good ROM, strength 5/5 Skin: clean, dry, intact. Surgical dressing midline without shadowing. Neuro: Alert and oriented x4, cranial nerves intact, no neuro deficits. Psych: normal mood, normal affect, interactive Objective Data Vital Signs Vital Signs: Vital Signs - 24 hr 05/15/24 14:00 05/15/24 21:34 05/16/24 06:00 Temperature 99.0 F 98.2 F 98.1 F Pulse Rate 91 84 90 Respiratory Rate 18 16 16 Blood Pressure 107/66 127/71 121/79 Pulse Oximetry 99 97 98 Intake/Output Intake/Output: Intake & Output 05/13/24 05/14/24 05/15/24 05/16/24 23:59 23:59 23:59 23:59 Intake Total 1270 1038 1330 550 Output Total 1300 800 750 150 Balance -30 238 580 400 Meds/Results Medications: Active Medications Generic Name Dose Route Start Last Admin Trade Name Freq PRN Reason Stop Dose Admin Acetaminophen 650 mg 05/09/24 11:59 Acetaminophen 325 Mg Tablet BY MOUTH Q6H PRN Mild Pain (1-3) or Fever Artificial Tears 1 drop 05/07/24 18:00 05/15/24 18:40 Artificial Tears Ophth Soln 15 Ml Bottle EACH EYE 1 drop TID EVER Administration Ascorbic Acid 1,000 mg 05/07/24 09:00 05/16/24 09:34 Ascorbic Acid 500 Mg Tablet PO 1,000 mg DAILY EVER Administration Atorvastatin Calcium 40 mg 05/07/24 09:00 05/16/24 09:33 Atorvastatin 40 Mg Tablet PO 40 mg QAM EVER Administration Brimonidine Tartrate 1 drop 05/02/24 14:00 05/16/24 07:25 Brimonidine Tartrate 0.2% Op Soln 5 Ml Btl EACH EYE 1 drop Q8HR EVER Administration Brinzolamide 1 drop 05/02/24 14:00 05/16/24 07:25 Brinzolamide 1% Ophth Susp 10 Ml EACH EYE 1 drop Q8HR EVER Administration Cyanocobalamin 1,000 mcg 05/07/24 09:00 05/16/24 09:34 Cyanocobalamin 1,000 Mcg Tablet PO 1,000 mcg DAILY EVER Administration Fluticasone Propionate 1 spray 05/06/24 17:24 Fluticasone Propionate 0.05% Na Spr 16 Gm Btl (*Bkc) NASAL HS PRN nasal congestion Fluticasone/Umeclidinium/Vilanterol 1 puff 05/11/24 08:00 05/16/24 08:57 Fluticasone/Umeclidin/Vilanter 100-62.5-25 Mcg Ellipta INHALATION Not Given DAILYRT EVER Folic Acid 0.8 mg 05/07/24 09:00 05/16/24 09:34 Folic Acid 0.4 Mg Tablet PO 0.8 mg QAM EVER Administration Furosemide 40 mg 05/17/24 09:00 Furosemide 40 Mg Tablet PO 05/19/24 09:01 DAILY EVER Heparin Sodium (Porcine) 5,000 units 05/08/24 12:35 05/16/24 09:33 Heparin Sodium 5,000 Units/Ml Vial SUB-Q 5,000 units Q12HR EVER Administration Latanoprost 1 drop 05/02/24 21:00 05/15/24 21:50 Latanoprost 0.005% Op Soln 2.5 Ml Btl RIGHT EYE 1 drop HS EVER Administration Magnesium Oxide 200 mg 05/06/24 21:00 05/15/24 21:50 Magnesium Oxide 200 Mg Tablet PO 200 mg HS EVER Administration Naloxone HCl 0.1 mg 05/03/24 14:22 Naloxone Hcl 0.4 Mg/Ml Vial IV PUSH Q2M PRN Opiate Reversal * Home Med * ( 2 each 05/15/24 20:00 05/15/24 21:51 Breztri Aerosphere) INHALATION 06/05/24 19:59 2 each Budes/Glycopyr/ Q12HRT EVER Administration Formot 160 Mcg-9 Mcg -4.8 Mcg Ondansetron HCl 4 mg 05/02/24 10:09 05/02/24 16:02 Ondansetron Inj 4 Mg/2 Ml Vial IV PUSH 4 mg Q6H PRN Administration Nausea And Vomiting Pantoprazole Sodium 40 mg 05/09/24 09:00 05/16/24 09:33 Pantoprazole 40 Mg Tablet PO 40 mg QAM EVER Administration Sodium Chloride 20 ml 05/03/24 05:52 Central Line Flush IV PUSH PRN PRN after blood draws Tamsulosin HCl 0.4 mg 05/06/24 21:00 05/15/24 21:50 Tamsulosin Hcl 0.4 Mg Capsule PO 0.4 mg QHS EVER Administration Radiology Results: ITS Impressions Abdomen X-Ray 05/02/24 06:01 Impression: NG tube in satisfactory position. Suspected small bowel obstruction. Renal Ultrasound 05/02/24 15:30 IMPRESSION: 1. Chronic severe left hydronephrosis. Severe left kidney atrophy. 2. Nonobstructing right kidney stone. Abdomen/Pelvis CT 05/02/24 18:09 IMPRESSION: 1. Small bowel obstruction secondary to a left inguinal hernia containing small bowel. 2. Small volume of ascites. 3. Moderate-sized sliding hiatal hernia. 4. Left kidney stones including a stone in the renal pelvis with chronic severe hydronephrosis and severe kidney atrophy. 5. Nonobstructing right kidney stones. Chest X-Ray 05/13/24 07:56 Impression: Minimal pleural effusions. Probable minimal bibasilar pulmonary edema/atelectasis, especially left lung base. Correlate clinically for pneumonia. Labs Labs: Laboratory Results - last 24 hr 05/16/24 08:03 WBC 6.0 RBC 3.83 L Hgb 10.8 L Hct 33.8 L MCV 88.3 MCH 28.2 MCHC 32.0 RDW 15.5 H Plt Count 248 MPV 10.5 H Immature Gran % (Auto) 0.3 Neut % (Auto) 72.5 Lymph % (Auto) 14.1 L [place] % (Auto) 10.3 H Eos % (Auto) 2.0 Baso % (Auto) 0.8 Lymph # (Auto) 0.85 L [place] # (Auto) 0.6 Eos # (Auto) 0.1 Baso # (Auto) 0.1 Abs Immat Gran (auto) 0.02 Absolute Neuts (auto) 4.4 Absolute Nucleated RBC 0.000 Nucleated RBC % 0.0 Sodium 134 L Potassium 4.2 Chloride 109 H Carbon Dioxide 23 Anion Gap 2 L BUN 22 H Creatinine 1.90 H Estim Creat Clear Calc 32 Estimated GFR 34 L Glucose 106 Calcium 8.9 Phosphorus 3.3 Magnesium 1.7 Total Bilirubin 0.8 AST 20 ALT 28 Alkaline Phosphatase 61 Total Protein 6.0 L Albumin 3.0 L Hospitalist MIPS Advance Care Plan I have confirmed that the patient's Advanced Care Plan is present, code status is documented, or surrogate decision maker is listed in patient medical record.: Yes Medication Reconciliation I have utilized all available resources to obtain, update and review the patients current medications (includes all prescriptions, OTC, herbals, cannabis, and nutritional supplements).: Yes
[2024-05-16 20:00] VITALS: PULSE 105; RESP 18; O2SAT 96
[2024-05-16] MEDS: LATANOPROST 0.005% OP SOLN 2.5 ML BTL 1 DROP RIGHT EYE (20:46)
[2024-05-16] MEDS: MAGNESIUM OXIDE 200 MG TABLET PO (20:50)
[2024-05-16] MEDS: TAMSULOSIN HCL 0.4 MG CAPSULE PO (20:50)
[2024-05-16 21:16] VITALS: BP 126/79; PULSE 105; RESP 18; TEMP 36.8; O2SAT 96
[2024-05-17] MEDS: BRINZOLAMIDE 1% OPHTH SUSP 10 ML 1 DROP EACH EYE ×3 (05:45→20:36)
[2024-05-17] MEDS: BRIMONIDINE TARTRATE 0.2% OP SOLN 5 ML BTL 1 DROP EACH EYE ×3 (05:45→20:35)
[2024-05-17 05:58] VITALS: BP 121/66; PULSE 81; RESP 18; TEMP 36.9; O2SAT 96
[2024-05-17 07:31] LABS: Basophils Absolute Auto 0.1 K/mm3 (0.0-0.1); Basophils Percent Auto 0.8 % (0.2-1.2); Eosinophils Absolute Auto 0.1 K/mm3 (0-0.3); Hematocrit 29.7 % (42.0-52.0); Hemoglobin 9.3 g/dL (14.0-18.0); Immature Granulocyte Absolute 0.03 K/mm3 (0.00-0.031); Immature Granulocyte Percent A 0.5 % (0-0.5); Lymphocytes Percent Auto 16.9 % (18.3-44.2); Mean Corpuscular HGB Conc 31.3 g/dl (32-36); Mean Corpuscular Hemoglobin 27.5 pg (26-34); Mean Corpuscular Volume 87.9 fl (80-100); Mean Platelet Volume 11.6 fl (7.4-10.4); Monocytes Absolute Auto 0.7 K/mm3 (0.1-0.6); Monocytes Percent Auto 12.5 % (2.6-8.5); Neutrophils Percent Auto 67.3 % (45.5-73.1); Platelet Count Result 196 k/mm3 (150-375); Red Blood Count 3.38 M/mm3 (4.6-6.20); Red Cell Distribution Width 15.4 % (11.5-14.5); White Blood Count 5.9 K/mm3 (4.5-10.0)
[2024-05-17 07:48] LABS: Alanine Aminotransferase 25 U/L (6-50); Albumin Level 2.8 g/dL (3.5-5.1); Alkaline Phosphatase 56 U/L (38-126); Anion Gap 4 mmol/L (4-12); Aspartate Amino Transferase 16 U/L (17-59); Bilirubin,Total 0.9 mg/dL (0.2-1.3); Blood Urea Nitrogen 26 mg/dL (9-20); Calcium 8.5 mg/dL (8.4-10.2); Carbon Dioxide 22 mmol/L (22-30); Chloride 106 mmol/L (98-107); Estimated CRCL calculation 32 ml/min; Estimated Glomerular Filt Rate 34; Glucose 99 mg/dL (65-110); Magnesium 1.7 mg/dL (1.6-2.3); Phosphorus 3.6 mg/dL (2.5-4.5); Potassium 3.9 mmol/L (3.4-5.0); Sodium 132 mmol/L (137-145)
[2024-05-17 08:00] VITALS: PULSE 100; RESP 14; O2SAT 97
--- NOTE | 2024-05-17 09:04 | P.DS_ITS ---
DS: Summary Time Spent with Patient Time attestation: Total time spent providing and/or coordinating discharge services: DS: Data Data Completed and Pending Completed studies during hospitalization: Pending at discharge 05/03/24 11:40 Surgical [PTH] Routine Labs on day of discharge: Labs from last 24 hours 05/17/24 05/16/24 06:36 08:03 WBC 5.9 RBC 3.38 L Hgb 9.3 L Hct 29.7 L MCV 87.9 MCH 27.5 MCHC 31.3 L RDW 15.4 H Plt Count 196 MPV 11.6 H Immature Gran % (Auto) 0.5 Neut % (Auto) 67.3 Lymph % (Auto) 16.9 L [place] % (Auto) 12.5 H Eos % (Auto) 2.0 Baso % (Auto) 0.8 Lymph # (Auto) 1.00 [place] # (Auto) 0.7 H Eos # (Auto) 0.1 Baso # (Auto) 0.1 Abs Immat Gran (auto) 0.03 Absolute Neuts (auto) 4.0 Absolute Nucleated RBC 0.000 Nucleated RBC % 0.0 Sodium 132 L 134 L Potassium 3.9 4.2 Chloride 106 109 H Carbon Dioxide 22 23 Anion Gap 4 2 L BUN 26 H 22 H Creatinine 1.90 H 1.90 H Estim Creat Clear Calc 32 32 Estimated GFR 34 L 34 L Glucose 99 106 Calcium 8.5 8.9 Phosphorus 3.6 3.3 Magnesium 1.7 1.7 Total Bilirubin 0.9 0.8 AST 16 L 20 ALT 25 28 Alkaline Phosphatase 56 61 Total Protein 5.0 L 6.0 L Albumin 2.8 L 3.0 L Discharge Plan Discharge Attending physician on discharge: Dylan Davey Consulting providers: Ricky Guaman; Salvador Weiss; Lambert Carrasco; Ronnie Greene; Marilu Paul; Leny Grady; Frieda Sultana Discharging Clinician: Dylan Davey Anticipated Discharge Date/Time: 05/17/24 09:02 Patient Disposition: Home Health Service Activity: as tolerated Diet: regular Discharge Instructions: Care Coordination: Patient to have [facility] for PT/OT eval and treat, and long-term. They can be reached at [phone] if you have any questions; they will contact you to schedule their first visit. DISCHARGE INSTRUCTION SHEET FOR HERNIA, GALLBLADDER AND APPENDIX SURGERIES DR. WEISS PATIENT TO TAKE HOME 1. May shower, no soaking in bath x 2weeks. 2. Call office for: * Wound increasingly painful or bleeding * Vomiting * Fever of greater than 101 degrees 3. If no bowel movement for three days, take 1 oz. (30 ml) Milk of Magnesia or MiraLax 17g 1 to 2 times daily. 4. No heavy lifting > 10-15 pounds x 6 weeks for hernia repairs 5. No driving for 3 days or while taking narcotic pain medications. 6. Ice to surgical site for 48 hours (30 min on, then 30 min off). 7. Up walking 10-30 minutes three times per day. 8. Resume previous home medications. 9. Follow-up 10-14 days in office for wound check or as previously scheduled. ([phone]) 10. Oral pain medications prescription to be sent to pharmacy. Take Tylenol 500mg every 6 hours and Ibuprofen 600mg every 6 hours for the first 2 days, then as needed. 11. NUTRITION: Start out by drinking fluids and increase your diet as tolerated. If you experience nausea, try dry toast, crackers, and 7-UP. If nausea or vomiting persists, contact your surgeon?s office. 12. Gallbladders-Low Fat Diet for 2 weeks (send care note of low fat diet) 13. Inguinal Hernias-wear scrotal support for 48 hours 14. Abdominal Hernias-if sent home with abdominal binder, wear for the first 2 weeks (may remove to shower or at night to sleep). Revised September 2018 Patient Instructions: Antibiotic Form, Removal of a Central Line, PICC, or Midline Catheter (DC) Patient Language: [place] Stand Alone Forms: General Discharge Information Follow-up/Referrals: Lambert Carrasco MD [Physician] - 3 Weeks (Establish with outpatient urology to discuss treatment options for right kidney stones) Salvador Weiss DO [Physician] - 2 Weeks Discharge Medications: Continued latanoprost 0.005 % Drops 1 drp RIGHT EYE HS Simbrinza 1-0.2 % Drops,Suspension 1 drp EACH EYE TID carboxymethylcellulose sodium 0.5 % dropperette 1 drp EACH EYE TID albuterol sulfate 90 mcg/actuation HFA aerosol inhaler 2 puff INHALATION .q6hr PRN (Reason: wheezing) Breztri Aerosphere 160-9-4.8 mcg/actuation HFA aerosol inhaler 2 inh INHALATION BID fluticasone propionate [24 Hour Allergy Relief] 50 mcg/actuation spray,suspension 1 spray intranasal HS PRN (Reason: nasal congestion) Rx Instructions: administer into each nostril Discontinued coQ10 (ubiquinol) [Qunol Silas CoQ10] 100 mg capsule 200 mg PO HS ferrous sulfate [Feosol] 325 mg (65 mg iron) tablet 325 mg PO DAILY amlodipine 10 mg tablet 5 mg PO DAILY magnesium 200 mg tablet 25 mg PO HS ascorbic acid (vitamin C) [Vitamin C] 1,000 mg Tablet 1 g PO DAILY aspirin [Remi Low Dose Aspirin] 81 mg Tablet,Delayed Release (Dr/Ec) 81 mg PO HS vitamin E 400 unit Tablet 450 mg PO DAILY folic acid 800 mcg tablet 1 mg PO QAM cyanocobalamin (vitamin B-12) 500 mcg Tablet 1,000 mcg PO DAILY multivit with min-folic acid 0.4 mg Tablet 1 tablet PO DAILY tamsulosin 0.4 mg capsule 0.4 mg PO QHS meclizine 25 mg tablet 25 mg PO QID PRN (Reason: dizziness) apple cider vinegar 250 mg tablet,chewable 250 mg PO HS Eye Health Vitamin-Mineral 250-90-10-1 mg capsule 1 cap PO QAM AND QHS omeprazole 20 mg tablet,delayed release (DR/EC) 20 mg PO BID Qty: 180 2RF diazepam 2 mg tablet 2 mg PO BID Qty: 60 0RF atenolol 50 mg tablet 50 mg PO QAM Qty: 90 1RF atorvastatin 40 mg tablet 40 mg PO QAM Qty: 90 1RF Date of admission: 05/02/24 05:56 Primary Care Provider: Benedicto Westbrook Admitting Provider: Celeste Delvalle Attending physician on admission: Nery Whaley Condition: Guarded Prognosis
[2024-05-17] MEDS: ARTIFICIAL TEARS OPHTH SOLN 15 ML BOTTLE 1 DROP EACH EYE ×3 (09:24→17:09)
[2024-05-17] MEDS: CYANOCOBALAMIN 1,000 MCG TABLET 1000 MCG PO (09:35)
[2024-05-17] MEDS: HEPARIN SODIUM 5,000 UNITS/ML VIAL 5000 UNITS SUB-Q ×2 (09:35→20:35)
[2024-05-17] MEDS: FOLIC ACID 0.4 MG TABLET 0.8 MG PO (09:36)
[2024-05-17] MEDS: ASCORBIC ACID 500 MG TABLET 1000 MG PO (09:37)
[2024-05-17] MEDS: PANTOPRAZOLE 40 MG TABLET PO (09:37)
[2024-05-17] MEDS: ATORVASTATIN 40 MG TABLET PO (09:37)
[2024-05-17] MEDS: FUROSEMIDE 40 MG TABLET PO (09:37)
--- NOTE | 2024-05-17 10:00 | PCNWS ---
Weekly nutritional screen. Patient is tolerating current regular diet with adequate intake 50-100%. No weight loss reported. No nutritional recommendations at this time.
--- NOTE | 2024-05-17 11:32 | PM.PNNEP ---
Subjective Date/time seen: 05/17/24 11:32 Objective Data Vital Signs Vital Signs: Vital Signs Temp Pulse Resp BP Pulse Ox O2 Del Method FiO2 05/17/24 11:00 99.3 F 100 14 123/65 97 05/17/24 05:58 98.4 F 81 18 121/66 96 05/16/24 21:16 98.3 F 105 H 18 126/79 96 05/16/24 20:00 105 H 18 96 Room Air 96 Intake/Output Intake/Output: Intake & Output 05/14/24 05/15/24 05/16/24 05/17/24 23:59 23:59 23:59 23:59 Intake Total 1038 1330 1580 1208 Output Total 800 175 283 1696 Balance 965 587 [id number] 9967 -9580 Meds/Results Medications: Active Medications Generic Name Dose Route Start Last Admin Trade Name Freq PRN Reason Stop Dose Admin Acetaminophen 650 mg 05/09/24 11:59 Acetaminophen 325 Mg Tablet BY MOUTH Q6H PRN Mild Pain (1-3) or Fever Artificial Tears 1 drop 05/07/24 18:00 05/17/24 09:24 Artificial Tears Ophth Soln 15 Ml Bottle EACH EYE 1 drop TID EVER Administration Ascorbic Acid 1,000 mg 05/07/24 09:00 05/17/24 09:37 Ascorbic Acid 500 Mg Tablet PO 1,000 mg DAILY EVER Administration Atorvastatin Calcium 40 mg 05/07/24 09:00 05/17/24 09:37 Atorvastatin 40 Mg Tablet PO 40 mg QAM EVER Administration Brimonidine Tartrate 1 drop 05/02/24 14:00 05/17/24 16:23 Brimonidine Tartrate 0.2% Op Soln 5 Ml Btl EACH EYE 1 drop Q8HR EVER Administration Brinzolamide 1 drop 05/02/24 14:00 05/17/24 16:23 Brinzolamide 1% Ophth Susp 10 Ml EACH EYE 1 drop Q8HR EVER Administration Cyanocobalamin 1,000 mcg 05/07/24 09:00 05/17/24 09:35 Cyanocobalamin 1,000 Mcg Tablet PO 1,000 mcg DAILY EVER Administration Fluticasone Propionate 1 spray 05/06/24 17:24 Fluticasone Propionate 0.05% Na Spr 16 Gm Btl (*Bkc) NASAL HS PRN nasal congestion Fluticasone/Umeclidinium/Vilanterol 1 puff 05/11/24 08:00 05/17/24 07:51 Fluticasone/Umeclidin/Vilanter 100-62.5-25 Mcg Ellipta INHALATION Not Given DAILYRT EVER Folic Acid 0.8 mg 05/07/24 09:00 05/17/24 09:36 Folic Acid 0.4 Mg Tablet PO 0.8 mg QAM EVER Administration Furosemide 40 mg 05/17/24 09:00 05/17/24 09:37 Furosemide 40 Mg Tablet PO 05/19/24 09:01 40 mg DAILY EVER Administration Heparin Sodium (Porcine) 5,000 units 05/08/24 12:35 05/17/24 09:35 Heparin Sodium 5,000 Units/Ml Vial SUB-Q 5,000 units Q12HR EVER Administration Latanoprost 1 drop 05/02/24 21:00 05/16/24 20:46 Latanoprost 0.005% Op Soln 2.5 Ml Btl RIGHT EYE 1 drop HS EVER Administration Magnesium Oxide 200 mg 05/06/24 21:00 05/16/24 20:50 Magnesium Oxide 200 Mg Tablet PO 200 mg HS EVER Administration Naloxone HCl 0.1 mg 05/03/24 14:22 Naloxone Hcl 0.4 Mg/Ml Vial IV PUSH Q2M PRN Opiate Reversal * Home Med * ( 2 each 05/15/24 20:00 05/16/24 22:02 Breztri Aerosphere) INHALATION 06/05/24 19:59 Not Given Budes/Glycopyr/ Q12HRT EVER Formot 160 Mcg-9 Mcg -4.8 Mcg Ondansetron HCl 4 mg 05/02/24 10:09 05/02/24 16:02 Ondansetron Inj 4 Mg/2 Ml Vial IV PUSH 4 mg Q6H PRN Administration Nausea And Vomiting Pantoprazole Sodium 40 mg 05/09/24 09:00 05/17/24 09:37 Pantoprazole 40 Mg Tablet PO 40 mg QAM EVER Administration Sodium Chloride 20 ml 05/03/24 05:52 Central Line Flush IV PUSH PRN PRN after blood draws Tamsulosin HCl 0.4 mg 05/06/24 21:00 05/16/24 20:50 Tamsulosin Hcl 0.4 Mg Capsule PO 0.4 mg QHS EVER Administration Radiology Results: ITS Impressions Abdomen X-Ray 05/02/24 06:01 Impression: NG tube in satisfactory position. Suspected small bowel obstruction. Renal Ultrasound 05/02/24 15:30 IMPRESSION: 1. Chronic severe left hydronephrosis. Severe left kidney atrophy. 2. Nonobstructing right kidney stone. Abdomen/Pelvis CT 05/02/24 18:09 IMPRESSION: 1. Small bowel obstruction secondary to a left inguinal hernia containing small bowel. 2. Small volume of ascites. 3. Moderate-sized sliding hiatal hernia. 4. Left kidney stones including a stone in the renal pelvis with chronic severe hydronephrosis and severe kidney atrophy. 5. Nonobstructing right kidney stones. Chest X-Ray 05/13/24 07:56 Impression: Minimal pleural effusions. Probable minimal bibasilar pulmonary edema/atelectasis, especially left lung base. Correlate clinically for pneumonia. Scrotum Ultrasound 05/16/24 15:01 IMPRESSION: 1. Bilateral scrotal edema and moderate bilateral hydroceles. Normal testes and epididymides. Labs Labs: Laboratory Tests 05/17/24 06:36 05/17/24 06:36 05/17/24 06:36 WBC 5.9 RBC 3.38 L Hgb 9.3 L Hct 29.7 L MCV 87.9 MCH 27.5 MCHC 31.3 L RDW 15.4 H Plt Count 196 MPV 11.6 H Immature Gran % (Auto) 0.5 Neut % (Auto) 67.3 Lymph % (Auto) 16.9 L [place] % (Auto) 12.5 H Eos % (Auto) 2.0 Baso % (Auto) 0.8 Lymph # (Auto) 1.00 [place] # (Auto) 0.7 H Eos # (Auto) 0.1 Baso # (Auto) 0.1 Abs Immat Gran (auto) 0.03 Absolute Neuts (auto) 4.0 Absolute Nucleated RBC 0.000 Nucleated RBC % 0.0 Sodium 132 L Potassium 3.9 Chloride 106 Carbon Dioxide 22 Anion Gap 4 BUN 26 H Creatinine 1.90 H Estim Creat Clear Calc 32 Estimated GFR 34 L Glucose 99 Calcium 8.5 Phosphorus 3.6 Magnesium 1.7 Total Bilirubin 0.9 AST 16 L ALT 25 Alkaline Phosphatase 56 Total Protein 5.0 L Albumin 2.8 L
[2024-05-17 14:00] VITALS: BP 123/65; PULSE 100; RESP 14; TEMP 37.4; O2SAT 97
--- NOTE | 2024-05-17 15:25 | PM.IMPN ---
Progress Note: A&P Assessment and Plan (1) Shock: Code(s): R57.9 - Shock, unspecified Status: Resolved Assessment and Plan: S/p IVF and pressors Intially on Cefepime, Flagyl and p.o. Vancomycin Blood cultures negative Resolved (2) C. difficile colitis: Code(s): A04.72 - Enterocolitis due to Clostridium difficile, not specified as recurrent Status: Acute Assessment and Plan: Completed vancomycin Off FMS Diarrhea resolving monitor one more day (3) Hypokalemia: Code(s): E87.6 - Hypokalemia Status: Resolved Assessment and Plan: Potassium 4.2 (4) SBO (small bowel obstruction): Code(s): K56.609 - Unspecified intestinal obstruction, unspecified as to partial versus complete obstruction Status: Acute Assessment and Plan: S/P open incarcerated left inguinal hernia repair with mesh, no bowel ischemia noted now tolerating diet SUrgery following (5) Atrial fibrillation: Code(s): I48.91 - Unspecified atrial fibrillation Status: Acute Assessment and Plan: Patient went into AFib 05/03. Rate controlled. Echo showing EF 50-55%, abnormal diastolic fxn, possible PFO and mild valvular disease. Cardiology following Monitor on tele for now. Eliquis 2.5mg bid (6) Incarcerated left inguinal hernia: Code(s): K40.30 - Unilateral inguinal hernia, with obstruction, without gangrene, not specified as recurrent Status: Acute Assessment and Plan: As above (7) Acute on chronic renal failure: Code(s): N17.9 - Acute kidney failure, unspecified; N18.9 - Chronic kidney disease, unspecified Status: Acute Assessment and Plan: Creatinine 1.9, improving Nephrology following Avoid nephrotoxic medication or testing with IV contrast Will remove beasley today (8) Obstructive uropathy: Code(s): N13.9 - Obstructive and reflux uropathy, unspecified Status: Acute Assessment and Plan: CT Abd/Pelvis 05/02 shows multiple nonobstructing right renal stones, markedly enlarged left kidney with marked, severe chronic hydronephrosis and severe diffuse cortical thinning. There is a large, presumably chronically obstructing stone at the left renal pelvis region measuring 3.0 x 2.0 cm in size. Additional smaller nonobstructing left renal stones are also present. Renal US showing chronic severe left hydronephrosis and severe left kidney atrophy UA is not consistent with UTI. Known finding per patient hx. 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 [place] this is an incidental finding and not contributing to his current illness Urology felt the right renal stones should be treated and will arrange for this as outpatient. 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 for 3 days Appreciate surgery input Plan Full code DVT prophylaxis on Sq Lovenox Awaiting placement Subjective Date/time seen: 05/17/24 15:25 Interval history: Patient still has scrotal edema. Will appreciate surgical evaluation. Holding discharge. Review of Systems Review of Systems: All systems reviewed & are unremarkable except as noted in HPI and below Exam Narrative: General: In no acute distress, well nourished Head: atraumatic, no encephalopathy Eyes: PERRLA, sclera clear ENT: moist mucous membranes, nasal passages clear Neck: supple, no JVD, no adenopathy, trachea midline Cardiac: Irregular rhythm of Atrial Fibrillation. No murmur, gallops or friction rubs, peripheral pulses intact. Respiratory: Lungs clear to auscultation, no adventitious lung sounds, currently on room air Gastrointestinal: soft, non-distended, non-tender, normoactive bowel sounds. : voiding without difficulty per purewick.Scrotal edema Extremities: moves all extremities well, no edema, good ROM, strength 5/5 Skin: clean, dry, intact. Surgical dressing midline without shadowing. Neuro: Alert and oriented x4, cranial nerves intact, no neuro deficits. Psych: normal mood, normal affect, interactive Objective Data Vital Signs Vital Signs: Vital Signs - 24 hr 05/16/24 20:00 05/16/24 21:16 05/17/24 05:58 Temperature 98.3 F 98.4 F Pulse Rate 105 H 105 H 81 Respiratory Rate 18 18 18 Blood Pressure 126/79 121/66 Pulse Oximetry 96 96 96 Oxygen Delivery Room Air Fraction of Inspired Oxygen 96 Intake/Output Intake/Output: Intake & Output 05/14/24 05/15/24 05/16/24 05/17/24 23:59 23:59 23:59 23:59 Intake Total 1038 1330 1580 850 Output Total 800 011 326 9423 Balance 792 268 5185 -750 Meds/Results Medications: Active Medications Generic Name Dose Route Start Last Admin Trade Name Freq PRN Reason Stop Dose Admin Acetaminophen 650 mg 05/09/24 11:59 Acetaminophen 325 Mg Tablet BY MOUTH Q6H PRN Mild Pain (1-3) or Fever Artificial Tears 1 drop 05/07/24 18:00 05/17/24 01:35 Artificial Tears Ophth Soln 15 Ml Bottle EACH EYE Not Given TID EVER Ascorbic Acid 1,000 mg 05/07/24 09:00 05/17/24 09:37 Ascorbic Acid 500 Mg Tablet PO 1,000 mg DAILY EVER Administration Atorvastatin Calcium 40 mg 05/07/24 09:00 05/17/24 09:37 Atorvastatin 40 Mg Tablet PO 40 mg QAM EVER Administration Brimonidine Tartrate 1 drop 05/02/24 14:00 05/17/24 05:45 Brimonidine Tartrate 0.2% Op Soln 5 Ml Btl EACH EYE 1 drop Q8HR EVER Administration Brinzolamide 1 drop 05/02/24 14:00 05/17/24 05:45 Brinzolamide 1% Ophth Susp 10 Ml EACH EYE 1 drop Q8HR EVER Administration Cyanocobalamin 1,000 mcg 05/07/24 09:00 05/17/24 09:35 Cyanocobalamin 1,000 Mcg Tablet PO 1,000 mcg DAILY EVER Administration Fluticasone Propionate 1 spray 05/06/24 17:24 Fluticasone Propionate 0.05% Na Spr 16 Gm Btl (*Bkc) NASAL HS PRN nasal congestion Fluticasone/Umeclidinium/Vilanterol 1 puff 05/11/24 08:00 05/17/24 07:51 Fluticasone/Umeclidin/Vilanter 100-62.5-25 Mcg Ellipta INHALATION Not Given DAILYRT EVER Folic Acid 0.8 mg 05/07/24 09:00 05/17/24 09:36 Folic Acid 0.4 Mg Tablet PO 0.8 mg QAM EVER Administration Furosemide 40 mg 05/17/24 09:00 05/17/24 09:37 Furosemide 40 Mg Tablet PO 05/19/24 09:01 40 mg DAILY EVER Administration Heparin Sodium (Porcine) 5,000 units 05/08/24 12:35 05/17/24 09:35 Heparin Sodium 5,000 Units/Ml Vial SUB-Q 5,000 units Q12HR EVER Administration Latanoprost 1 drop 05/02/24 21:00 05/16/24 20:46 Latanoprost 0.005% Op Soln 2.5 Ml Btl RIGHT EYE 1 drop HS EVER Administration Magnesium Oxide 200 mg 05/06/24 21:00 05/16/24 20:50 Magnesium Oxide 200 Mg Tablet PO 200 mg HS EVER Administration Naloxone HCl 0.1 mg 05/03/24 14:22 Naloxone Hcl 0.4 Mg/Ml Vial IV PUSH Q2M PRN Opiate Reversal * Home Med * ( 2 each 05/15/24 20:00 05/16/24 22:02 Breztri Aerosphere) INHALATION 06/05/24 19:59 Not Given Budes/Glycopyr/ Q12HRT [facility] Formot 160 Mcg-9 Mcg -4.8 Mcg Ondansetron HCl 4 mg 05/02/24 10:09 05/02/24 16:02 Ondansetron Inj 4 Mg/2 Ml Vial IV PUSH 4 mg Q6H PRN Administration Nausea And Vomiting Pantoprazole Sodium 40 mg 05/09/24 09:00 05/17/24 09:37 Pantoprazole 40 Mg Tablet PO 40 mg QAM EVER Administration Sodium Chloride 20 ml 05/03/24 05:52 Central Line Flush IV PUSH PRN PRN after blood draws Tamsulosin HCl 0.4 mg 05/06/24 21:00 05/16/24 20:50 Tamsulosin Hcl 0.4 Mg Capsule PO 0.4 mg QHS EVER Administration Radiology Results: ITS Impressions Abdomen X-Ray 05/02/24 06:01 Impression: NG tube in satisfactory position. Suspected small bowel obstruction. Renal Ultrasound 05/02/24 15:30 IMPRESSION: 1. Chronic severe left hydronephrosis. Severe left kidney atrophy. 2. Nonobstructing right kidney stone. Abdomen/Pelvis CT 05/02/24 18:09 IMPRESSION: 1. Small bowel obstruction secondary to a left inguinal hernia containing small bowel. 2. Small volume of ascites. 3. Moderate-sized sliding hiatal hernia. 4. Left kidney stones including a stone in the renal pelvis with chronic severe hydronephrosis and severe kidney atrophy. 5. Nonobstructing right kidney stones. Chest X-Ray 05/13/24 07:56 Impression: Minimal pleural effusions. Probable minimal bibasilar pulmonary edema/atelectasis, especially left lung base. Correlate clinically for pneumonia. Scrotum Ultrasound 05/16/24 15:01 IMPRESSION: 1. Bilateral scrotal edema and moderate bilateral hydroceles. Normal testes and epididymides. Labs Labs: Laboratory Results - last 24 hr 05/17/24 06:36 WBC 5.9 RBC 3.38 L Hgb 9.3 L Hct 29.7 L MCV 87.9 MCH 27.5 MCHC 31.3 L RDW 15.4 H Plt Count 196 MPV 11.6 H Immature Gran % (Auto) 0.5 Neut % (Auto) 67.3 Lymph % (Auto) 16.9 L [place] % (Auto) 12.5 H Eos % (Auto) 2.0 Baso % (Auto) 0.8 Lymph # (Auto) 1.00 [place] # (Auto) 0.7 H Eos # (Auto) 0.1 Baso # (Auto) 0.1 Abs Immat Gran (auto) 0.03 Absolute Neuts (auto) 4.0 Absolute Nucleated RBC 0.000 Nucleated RBC % 0.0 Sodium 132 L Potassium 3.9 Chloride 106 Carbon Dioxide 22 Anion Gap 4 BUN 26 H Creatinine 1.90 H Estim Creat Clear Calc 32 Estimated GFR 34 L Glucose 99 Calcium 8.5 Phosphorus 3.6 Magnesium 1.7 Total Bilirubin 0.9 AST 16 L ALT 25 Alkaline Phosphatase 56 Total Protein 5.0 L Albumin 2.8 L Quality VTE Prophylaxis VTE prophylaxis: pharmacologic ordered Hospitalist [facility] Advance Care Plan I have confirmed that the patient's Advanced Care Plan is present, code status is documented, or surrogate decision maker is listed in patient medical record.: Yes Medication Reconciliation I have utilized all available resources to obtain, update and review the patients current medications (includes all prescriptions, OTC, herbals, cannabis, and nutritional supplements).: Yes
[2024-05-17] MEDS: MAGNESIUM OXIDE 200 MG TABLET PO (20:35)
[2024-05-17] MEDS: LATANOPROST 0.005% OP SOLN 2.5 ML BTL 1 DROP RIGHT EYE (20:35)
[2024-05-17] MEDS: TAMSULOSIN HCL 0.4 MG CAPSULE PO (20:35)
[2024-05-17 22:00] VITALS: BP 100/59; PULSE 97; RESP 14; TEMP 36.2; O2SAT 95
[2024-05-18] MEDS: BRIMONIDINE TARTRATE 0.2% OP SOLN 5 ML BTL 1 DROP EACH EYE ×3 (05:04→21:51)
[2024-05-18] MEDS: BRINZOLAMIDE 1% OPHTH SUSP 10 ML 1 DROP EACH EYE ×3 (05:04→21:51)
[2024-05-18 06:00] VITALS: BP 101/56; PULSE 88; RESP 12; TEMP 36.7; O2SAT 94
[2024-05-18 07:15] LABS: Basophils Percent Auto 0.5 % (0.2-1.2); Eosinophils Absolute Auto 0.1 K/mm3 (0-0.3); Eosinophils Percent Auto 2.3 % (0-4.4); Hematocrit 27.6 % (42.0-52.0); Immature Granulocyte Absolute 0.02 K/mm3 (0.00-0.031); Immature Granulocyte Percent A 0.4 % (0-0.5); Lymphocytes Absolute Auto 1.08 K/mm3 (0.9-3.2); Lymphocytes Percent Auto 19.4 % (18.3-44.2); Mean Corpuscular HGB Conc 32.6 g/dl (32-36); Mean Corpuscular Hemoglobin 28.3 pg (26-34); Mean Corpuscular Volume 86.8 fl (80-100); Mean Platelet Volume 10.6 fl (7.4-10.4); Monocytes Absolute Auto 0.7 K/mm3 (0.1-0.6); Monocytes Percent Auto 12.1 % (2.6-8.5); Neutrophils Absolute Auto 3.6 K/mm3 (1.3-6.7); Neutrophils Percent Auto 65.3 % (45.5-73.1); Platelet Count Result 191 k/mm3 (150-375); Red Blood Count 3.18 M/mm3 (4.6-6.20); Red Cell Distribution Width 15.1 % (11.5-14.5); White Blood Count 5.6 K/mm3 (4.5-10.0)
[2024-05-18 07:28] LABS: Alanine Aminotransferase 29 U/L (6-50); Albumin Level 2.6 g/dL (3.5-5.1); Alkaline Phosphatase 59 U/L (38-126); Anion Gap 5 mmol/L (4-12); Aspartate Amino Transferase 21 U/L (17-59); Bilirubin,Total 0.8 mg/dL (0.2-1.3); Blood Urea Nitrogen 26 mg/dL (9-20); Calcium 8.3 mg/dL (8.4-10.2); Carbon Dioxide 23 mmol/L (22-30); Chloride 103 mmol/L (98-107); Estimated CRCL calculation 30 ml/min; Estimated Glomerular Filt Rate 32; Glucose 106 mg/dL (65-110); Magnesium 1.6 mg/dL (1.6-2.3); Phosphorus 3.4 mg/dL (2.5-4.5); Potassium 3.9 mmol/L (3.4-5.0); Sodium 131 mmol/L (137-145)
[2024-05-18] MEDS: CYANOCOBALAMIN 1,000 MCG TABLET 1000 MCG PO (08:37)
[2024-05-18] MEDS: FOLIC ACID 0.4 MG TABLET 0.8 MG PO (08:37)
[2024-05-18] MEDS: ATORVASTATIN 40 MG TABLET PO (08:37)
[2024-05-18] MEDS: FUROSEMIDE 40 MG TABLET PO (08:37)
[2024-05-18] MEDS: ASCORBIC ACID 500 MG TABLET 1000 MG PO (08:37)
[2024-05-18] MEDS: HEPARIN SODIUM 5,000 UNITS/ML VIAL 5000 UNITS SUB-Q ×2 (08:37→21:49)
[2024-05-18] MEDS: PANTOPRAZOLE 40 MG TABLET PO (08:37)
--- NOTE | 2024-05-18 09:23 | P.PNIM_ITS ---
Progress Note: A&P Assessment and Plan (1) Shock: Code(s): R57.9 - Shock, unspecified Status: Resolved Assessment and Plan: S/p IVF and pressors Intially on Cefepime, Flagyl and p.o. Vancomycin Blood cultures negative Resolved (2) C. difficile colitis: Code(s): A04.72 - Enterocolitis due to Clostridium difficile, not specified as recurrent Status: Acute Assessment and Plan: Completed vancomycin Off FMS Diarrhea resolving monitor one more day (3) Hypokalemia: Code(s): E87.6 - Hypokalemia Status: Resolved Assessment and Plan: * Potassium 4.2 (4) SBO (small bowel obstruction): Code(s): K56.609 - Unspecified intestinal obstruction, unspecified as to partial versus complete obstruction Status: Acute Assessment and Plan: * S/P open incarcerated left inguinal hernia repair with mesh, no bowel ischemia noted * now tolerating diet SUrgery following (5) Atrial fibrillation: Code(s): I48.91 - Unspecified atrial fibrillation Status: Acute Assessment and Plan: * Patient went into AFib 05/03. Rate controlled. * Echo showing EF 50-55%, abnormal diastolic fxn, possible PFO and mild valvular disease. * Cardiology following * Monitor on tele for now. * Eliquis 2.5mg bid (6) Incarcerated left inguinal hernia: Code(s): K40.30 - Unilateral inguinal hernia, with obstruction, without gangrene, not specified as recurrent Status: Acute Assessment and Plan: As above (7) Acute on chronic renal failure: Code(s): N17.9 - Acute kidney failure, unspecified; N18.9 - Chronic kidney disease, unspecified Status: Acute Assessment and Plan: * Creatinine 1.9, improving * Nephrology following * Avoid nephrotoxic medication or testing with IV contrast * Will remove beasley today (8) Obstructive uropathy: Code(s): N13.9 - Obstructive and reflux uropathy, unspecified Status: Acute Assessment and Plan: * CT Abd/Pelvis 05/02 shows multiple nonobstructing right renal stones, markedly enlarged left kidney with marked, severe chronic hydronephrosis and severe diffuse cortical thinning. There is a large, presumably chronically obstructing stone at the left renal pelvis region measuring 3.0 x 2.0 cm in size. Additional smaller nonobstructing left renal stones are also present. * Renal US showing chronic severe left hydronephrosis and severe left kidney atrophy * UA is not consistent with UTI. * Known finding per patient hx. 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 * [place] this is an incidental finding and not contributing to his current illness * Urology felt the right renal stones should be treated and will arrange for this as outpatient. 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 for 3 days Appreciate surgery input Plan Full code DVT prophylaxis on Sq Lovenox Awaiting placement Subjective Date/time seen: 05/18/24 09:23 Interval history: Pending surgical re-evaluation . Consulted Urology due concerns of scrotal edema. Review of Systems Review of Systems: All systems reviewed & are unremarkable except as noted in HPI and below Exam Narrative: General: In no acute distress, well nourished Head: atraumatic, no encephalopathy Eyes: PERRLA, sclera clear ENT: moist mucous membranes, nasal passages clear Neck: supple, no JVD, no adenopathy, trachea midline Cardiac: Irregular rhythm of Atrial Fibrillation. No murmur, gallops or friction rubs, peripheral pulses intact. Respiratory: Lungs clear to auscultation, no adventitious lung sounds, currently on room air Gastrointestinal: soft, non-distended, non-tender, normoactive bowel sounds. : voiding without difficulty per purewick.Scrotal edema Extremities: moves all extremities well, no edema, good ROM, strength 5/5 Skin: clean, dry, intact. Surgical dressing midline without shadowing. Neuro: Alert and oriented x4, cranial nerves intact, no neuro deficits. Psych: normal mood, normal affect, interactive Objective Data Vital Signs Vital Signs: Vital Signs - 24 hr 05/17/24 14:00 05/17/24 20:00 05/17/24 22:00 Temperature 99.3 F 97.1 F L Pulse Rate 100 97 Respiratory Rate 14 14 Blood Pressure 123/65 100/59 L Pulse Oximetry 97 95 Oxygen Delivery Room Air Fraction of Inspired Oxygen 96 05/18/24 06:00 Temperature 98.1 F Pulse Rate 88 Respiratory Rate 12 Blood Pressure 101/56 L Pulse Oximetry 94 Oxygen Delivery Fraction of Inspired Oxygen Intake/Output Intake/Output: Intake & Output 05/15/24 05/16/24 05/17/24 05/18/24 23:59 23:59 23:59 23:59 Intake Total 1330 1580 1448 475 Output Total 299 416 5469 450 Balance 580 1023 -1152 25 Meds/Results Medications: Active Medications Generic Name Dose Route Start Last Admin Trade Name Freq PRN Reason Stop Dose Admin Acetaminophen 650 mg 05/09/24 11:59 Acetaminophen 325 Mg Tablet BY MOUTH Q6H PRN Mild Pain (1-3) or Fever Artificial Tears 1 drop 05/07/24 18:00 05/18/24 08:37 Artificial Tears Ophth Soln 15 Ml Bottle EACH EYE Not Given TID EVER Ascorbic Acid 1,000 mg 05/07/24 09:00 05/18/24 08:37 Ascorbic Acid 500 Mg Tablet PO 1,000 mg DAILY EVER Administration Atorvastatin Calcium 40 mg 05/07/24 09:00 05/18/24 08:37 Atorvastatin 40 Mg Tablet PO 40 mg QAM EVER Administration Brimonidine Tartrate 1 drop 05/02/24 14:00 05/18/24 05:04 Brimonidine Tartrate 0.2% Op Soln 5 Ml Btl EACH EYE 1 drop Q8HR EVER Administration Brinzolamide 1 drop 05/02/24 14:00 05/18/24 05:04 Brinzolamide 1% Ophth Susp 10 Ml EACH EYE 1 drop Q8HR EVER Administration Cyanocobalamin 1,000 mcg 05/07/24 09:00 05/18/24 08:37 Cyanocobalamin 1,000 Mcg Tablet PO 1,000 mcg DAILY EVER Administration Fluticasone Propionate 1 spray 05/06/24 17:24 Fluticasone Propionate 0.05% Na Spr 16 Gm Btl (*Bkc) NASAL HS PRN nasal congestion Fluticasone/Umeclidinium/Vilanterol 1 puff 05/11/24 08:00 05/18/24 07:17 Fluticasone/Umeclidin/Vilanter 100-62.5-25 Mcg Ellipta INHALATION Not Given DAILYRT EVER Folic Acid 0.8 mg 05/07/24 09:00 05/18/24 08:37 Folic Acid 0.4 Mg Tablet PO 0.8 mg QAM EVER Administration Furosemide 40 mg 05/17/24 09:00 05/18/24 08:37 Furosemide 40 Mg Tablet PO 05/19/24 09:01 40 mg DAILY EVER Administration Heparin Sodium (Porcine) 5,000 units 05/08/24 12:35 05/18/24 08:37 Heparin Sodium 5,000 Units/Ml Vial SUB-Q 5,000 units Q12HR EVER Administration Latanoprost 1 drop 05/02/24 21:00 05/17/24 20:35 Latanoprost 0.005% Op Soln 2.5 Ml Btl RIGHT EYE 1 drop HS EVER Administration Magnesium Oxide 200 mg 05/06/24 21:00 05/17/24 20:35 Magnesium Oxide 200 Mg Tablet PO 200 mg HS EVER Administration Naloxone HCl 0.1 mg 05/03/24 14:22 Naloxone Hcl 0.4 Mg/Ml Vial IV PUSH Q2M PRN Opiate Reversal * Home Med * ( 2 each 05/15/24 20:00 05/17/24 22:24 Breztri Aerosphere) INHALATION 06/05/24 19:59 Not Given Budes/Glycopyr/ Q12HRT EVER Formot 160 Mcg-9 Mcg -4.8 Mcg Ondansetron HCl 4 mg 05/02/24 10:09 05/02/24 16:02 Ondansetron Inj 4 Mg/2 Ml Vial IV PUSH 4 mg Q6H PRN Administration Nausea And Vomiting Pantoprazole Sodium 40 mg 05/09/24 09:00 05/18/24 08:37 Pantoprazole 40 Mg Tablet PO 40 mg QAM EVER Administration Sodium Chloride 20 ml 05/03/24 05:52 Central Line Flush IV PUSH PRN PRN after blood draws Tamsulosin HCl 0.4 mg 05/06/24 21:00 05/17/24 20:35 Tamsulosin Hcl 0.4 Mg Capsule PO 0.4 mg QHS EVER Administration Radiology Results: ITS Impressions Abdomen X-Ray 05/02/24 06:01 Impression: NG tube in satisfactory position. Suspected small bowel obstruction. Renal Ultrasound 05/02/24 15:30 IMPRESSION: 1. Chronic severe left hydronephrosis. Severe left kidney atrophy. 2. Nonobstructing right kidney stone. Abdomen/Pelvis CT 05/02/24 18:09 IMPRESSION: 1. Small bowel obstruction secondary to a left inguinal hernia containing small bowel. 2. Small volume of ascites. 3. Moderate-sized sliding hiatal hernia. 4. Left kidney stones including a stone in the renal pelvis with chronic severe hydronephrosis and severe kidney atrophy. 5. Nonobstructing right kidney stones. Chest X-Ray 05/13/24 07:56 Impression: Minimal pleural effusions. Probable minimal bibasilar pulmonary edema/atelectasis, especially left lung base. Correlate clinically for pneumonia. Scrotum Ultrasound 05/16/24 15:01 IMPRESSION: 1. Bilateral scrotal edema and moderate bilateral hydroceles. Normal testes and epididymides. Labs Labs: Laboratory Results - last 24 hr 05/18/24 06:54 WBC 5.6 RBC 3.18 L Hgb 9.0 L Hct 27.6 L MCV 86.8 MCH 28.3 MCHC 32.6 RDW 15.1 H Plt Count 191 MPV 10.6 H Immature Gran % (Auto) 0.4 Neut % (Auto) 65.3 Lymph % (Auto) 19.4 [place] % (Auto) 12.1 H Eos % (Auto) 2.3 Baso % (Auto) 0.5 Lymph # (Auto) 1.08 [place] # (Auto) 0.7 H Eos # (Auto) 0.1 Baso # (Auto) 0.0 Abs Immat Gran (auto) 0.02 Absolute Neuts (auto) 3.6 Absolute Nucleated RBC 0.000 Nucleated RBC % 0.0 Sodium 131 L Potassium 3.9 Chloride 103 Carbon Dioxide 23 Anion Gap 5 BUN 26 H Creatinine 2.00 H Estim Creat Clear Calc 30 Estimated GFR 32 L Glucose 106 Calcium 8.3 L Phosphorus 3.4 Magnesium 1.6 Total Bilirubin 0.8 AST 21 ALT 29 Alkaline Phosphatase 59 Total Protein 6.0 L Albumin 2.6 L Quality VTE Prophylaxis VTE prophylaxis: pharmacologic ordered Hospitalist [facility] Advance Care Plan I have confirmed that the patient's Advanced Care Plan is present, code status is documented, or surrogate decision maker is listed in patient medical record.: Yes Medication Reconciliation I have utilized all available resources to obtain, update and review the patients current medications (includes all prescriptions, OTC, herbals, cannabis, and nutritional supplements).: Yes
[2024-05-18] MEDS: ARTIFICIAL TEARS OPHTH SOLN 15 ML BOTTLE 1 DROP EACH EYE (13:04)
[2024-05-18 14:00] VITALS: BP 111/57; PULSE 106; RESP 18; TEMP 37.4; O2SAT 96
[2024-05-18] MEDS: ACETAMINOPHEN 325 MG TABLET 650 MG BY MOUTH (15:39)
[2024-05-18] MEDS: TAMSULOSIN HCL 0.4 MG CAPSULE PO (21:49)
[2024-05-18] MEDS: MAGNESIUM OXIDE 200 MG TABLET PO (21:49)
[2024-05-18] MEDS: LATANOPROST 0.005% OP SOLN 2.5 ML BTL 1 DROP RIGHT EYE (21:51)
[2024-05-18 22:00] VITALS: BP 120/62; PULSE 82; RESP 20; TEMP 37; O2SAT 96
[2024-05-19 06:00] VITALS: BP 106/65; PULSE 88; RESP 16; TEMP 36.7; O2SAT 97
[2024-05-19] MEDS: BRINZOLAMIDE 1% OPHTH SUSP 10 ML 1 DROP EACH EYE ×3 (06:40→21:10)
[2024-05-19] MEDS: BRIMONIDINE TARTRATE 0.2% OP SOLN 5 ML BTL 1 DROP EACH EYE ×3 (06:40→21:09)
[2024-05-19 06:51] LABS: Basophils Absolute Auto 0.1 K/mm3 (0.0-0.1); Eosinophils Absolute Auto 0.2 K/mm3 (0-0.3); Eosinophils Percent Auto 3.3 % (0-4.4); Hematocrit 27.6 % (42.0-52.0); Hemoglobin 8.7 g/dL (14.0-18.0); Immature Granulocyte Absolute 0.01 K/mm3 (0.00-0.031); Immature Granulocyte Percent A 0.2 % (0-0.5); Lymphocytes Absolute Auto 1.08 K/mm3 (0.9-3.2); Lymphocytes Percent Auto 20.9 % (18.3-44.2); Mean Corpuscular HGB Conc 31.5 g/dl (32-36); Mean Corpuscular Hemoglobin 27.6 pg (26-34); Mean Corpuscular Volume 87.6 fl (80-100); Mean Platelet Volume 10.5 fl (7.4-10.4); Monocytes Absolute Auto 0.6 K/mm3 (0.1-0.6); Monocytes Percent Auto 12.2 % (2.6-8.5); Neutrophils Absolute Auto 3.2 K/mm3 (1.3-6.7); Neutrophils Percent Auto 62.4 % (45.5-73.1); Platelet Count Result 171 k/mm3 (150-375); Red Blood Count 3.15 M/mm3 (4.6-6.20); Red Cell Distribution Width 15.1 % (11.5-14.5); White Blood Count 5.2 K/mm3 (4.5-10.0)
[2024-05-19 07:04] LABS: Alanine Aminotransferase 31 U/L (6-50); Albumin Level 2.6 g/dL (3.5-5.1); Alkaline Phosphatase 66 U/L (38-126); Anion Gap 2 mmol/L (4-12); Aspartate Amino Transferase 23 U/L (17-59); Bilirubin,Total 0.7 mg/dL (0.2-1.3); Blood Urea Nitrogen 27 mg/dL (9-20); Calcium 8.5 mg/dL (8.4-10.2); Carbon Dioxide 25 mmol/L (22-30); Chloride 105 mmol/L (98-107); Estimated CRCL calculation 29 ml/min; Estimated Glomerular Filt Rate 30; Glucose 96 mg/dL (65-110); Magnesium 1.7 mg/dL (1.6-2.3); Phosphorus 3.9 mg/dL (2.5-4.5); Potassium 3.7 mmol/L (3.4-5.0); Sodium 132 mmol/L (137-145)
[2024-05-19] MEDS: FUROSEMIDE 40 MG TABLET PO (08:45)
[2024-05-19] MEDS: PANTOPRAZOLE 40 MG TABLET PO (08:45)
[2024-05-19] MEDS: ASCORBIC ACID 500 MG TABLET 1000 MG PO (08:45)
[2024-05-19] MEDS: HEPARIN SODIUM 5,000 UNITS/ML VIAL 5000 UNITS SUB-Q ×2 (08:45→21:07)
[2024-05-19] MEDS: CYANOCOBALAMIN 1,000 MCG TABLET 1000 MCG PO (08:45)
[2024-05-19] MEDS: FOLIC ACID 0.4 MG TABLET 0.8 MG PO (08:45)
[2024-05-19] MEDS: ATORVASTATIN 40 MG TABLET PO (08:45)
[2024-05-19] MEDS: ARTIFICIAL TEARS OPHTH SOLN 15 ML BOTTLE 1 DROP EACH EYE ×3 (08:46→16:40)
--- NOTE | 2024-05-19 10:10 | PM.IMPN ---
Progress Note: A&P Assessment and Plan (1) Shock: Code(s): R57.9 - Shock, unspecified Status: Resolved Assessment and Plan: S/p IVF and pressors Intially on Cefepime, Flagyl and p.o. Vancomycin Blood cultures negative Resolved (2) C. difficile colitis: Code(s): A04.72 - Enterocolitis due to Clostridium difficile, not specified as recurrent Status: Acute Assessment and Plan: Completed vancomycin Off FMS Diarrhea resolving monitor one more day (3) Hypokalemia: Code(s): E87.6 - Hypokalemia Status: Resolved Assessment and Plan: Potassium 4.2 (4) SBO (small bowel obstruction): Code(s): K56.609 - Unspecified intestinal obstruction, unspecified as to partial versus complete obstruction Status: Acute Assessment and Plan: S/P open incarcerated left inguinal hernia repair with mesh, no bowel ischemia noted now tolerating diet SUrgery following (5) Atrial fibrillation: Code(s): I48.91 - Unspecified atrial fibrillation Status: Acute Assessment and Plan: Patient went into AFib 05/03. Rate controlled. Echo showing EF 50-55%, abnormal diastolic fxn, possible PFO and mild valvular disease. Cardiology following Monitor on tele for now. Eliquis 2.5mg bid (6) Incarcerated left inguinal hernia: Code(s): K40.30 - Unilateral inguinal hernia, with obstruction, without gangrene, not specified as recurrent Status: Acute Assessment and Plan: As above (7) Acute on chronic renal failure: Code(s): N17.9 - Acute kidney failure, unspecified; N18.9 - Chronic kidney disease, unspecified Status: Acute Assessment and Plan: Creatinine 1.9, improving Nephrology following Avoid nephrotoxic medication or testing with IV contrast Will remove beasley today (8) Obstructive uropathy: Code(s): N13.9 - Obstructive and reflux uropathy, unspecified Status: Acute Assessment and Plan: CT Abd/Pelvis 05/02 shows multiple nonobstructing right renal stones, markedly enlarged left kidney with marked, severe chronic hydronephrosis and severe diffuse cortical thinning. There is a large, presumably chronically obstructing stone at the left renal pelvis region measuring 3.0 x 2.0 cm in size. Additional smaller nonobstructing left renal stones are also present. Renal US showing chronic severe left hydronephrosis and severe left kidney atrophy UA is not consistent with UTI. Known finding per patient hx. 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 [place] this is an incidental finding and not contributing to his current illness Urology felt the right renal stones should be treated and will arrange for this as outpatient. 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, unspecified Status: Acute Assessment and Plan: History of PFO Continue Octaviotri (10) Scrotal edema: Code(s): N50.89 - Other specified disorders of the male genital organs Status: Acute Assessment and Plan: Ordered scrotal ultrasound Lasix 40 mg p.o. for 6 days Appreciate surgery input Plan Full code DVT prophylaxis on Sq Lovenox Awaiting placement Subjective Date/time seen: 05/19/24 10:10 Interval history: Pending evaluation from surgery and Urology for scrotal edema. Patient is receiving Lasix 40 mg p.o. q.d. until 05/21. Patient underwent Open incarcerated left inguinal hernia repair with mesh on 05/03/2024. Completed oral vancomycin for C diff Review of Systems Review of Systems: All systems reviewed & are unremarkable except as noted in HPI and below Exam Narrative: General: In no acute distress, well nourished Head: atraumatic, no encephalopathy Eyes: PERRLA, sclera clear ENT: moist mucous membranes, nasal passages clear Neck: supple, no JVD, no adenopathy, trachea midline Cardiac: Irregular rhythm of Atrial Fibrillation. No murmur, gallops or friction rubs, peripheral pulses intact. Respiratory: Lungs clear to auscultation, no adventitious lung sounds, currently on room air Gastrointestinal: soft, non-distended, non-tender, normoactive bowel sounds. : voiding without difficulty per purewick.Scrotal edema Extremities: moves all extremities well, no edema, good ROM, strength 5/5 Skin: clean, dry, intact. Surgical dressing midline without shadowing. Neuro: Alert and oriented x4, cranial nerves intact, no neuro deficits. Psych: normal mood, normal affect, interactive Objective Data Vital Signs Vital Signs: Vital Signs - 24 hr 05/18/24 14:00 05/18/24 22:00 05/19/24 06:00 Temperature 99.3 F 98.6 F 98.0 F Pulse Rate 106 H 82 88 Respiratory Rate 18 20 16 Blood Pressure 111/57 L 120/62 106/65 Pulse Oximetry 96 96 97 Intake/Output Intake/Output: Intake & Output 05/16/24 05/17/24 05/18/24 05/19/24 23:59 23:59 23:59 23:59 Intake Total 1580 1448 1315 100 Output Total 500 2600 850 500 Balance 4061 -4904 010 -283 Meds/Results Medications: Active Medications Generic Name Dose Route Start Last Admin Trade Name Freq PRN Reason Stop Dose Admin Acetaminophen 650 mg 05/09/24 11:59 05/18/24 15:39 Acetaminophen 325 Mg Tablet BY MOUTH 650 mg Q6H PRN Administration Mild Pain (1-3) or Fever Artificial Tears 1 drop 05/07/24 18:00 05/19/24 08:46 Artificial Tears Ophth Soln 15 Ml Bottle EACH EYE 1 drop TID EVER Administration Ascorbic Acid 1,000 mg 05/07/24 09:00 05/19/24 08:45 Ascorbic Acid 500 Mg Tablet PO 1,000 mg DAILY EVER Administration Atorvastatin Calcium 40 mg 05/07/24 09:00 05/19/24 08:45 Atorvastatin 40 Mg Tablet PO 40 mg QAM EVER Administration Brimonidine Tartrate 1 drop 05/02/24 14:00 05/19/24 06:40 Brimonidine Tartrate 0.2% Op Soln 5 Ml Btl EACH EYE 1 drop Q8HR EVER Administration Brinzolamide 1 drop 05/02/24 14:00 05/19/24 06:40 Brinzolamide 1% Ophth Susp 10 Ml EACH EYE 1 drop Q8HR EVER Administration Cyanocobalamin 1,000 mcg 05/07/24 09:00 05/19/24 08:45 Cyanocobalamin 1,000 Mcg Tablet PO 1,000 mcg DAILY EVER Administration Fluticasone Propionate 1 spray 05/06/24 17:24 Fluticasone Propionate 0.05% Na Spr 16 Gm Btl (*Bkc) NASAL HS PRN nasal congestion Fluticasone/Umeclidinium/Vilanterol 1 puff 05/11/24 08:00 05/19/24 08:37 Fluticasone/Umeclidin/Vilanter 100-62.5-25 Mcg Ellipta INHALATION Not Given DAILYRT EVER Folic Acid 0.8 mg 05/07/24 09:00 05/19/24 08:45 Folic Acid 0.4 Mg Tablet PO 0.8 mg QAM EVER Administration Heparin Sodium (Porcine) 5,000 units 05/08/24 12:35 05/19/24 08:45 Heparin Sodium 5,000 Units/Ml Vial SUB-Q 5,000 units Q12HR EVER Administration Latanoprost 1 drop 05/02/24 21:00 05/18/24 21:51 Latanoprost 0.005% Op Soln 2.5 Ml Btl RIGHT EYE 1 drop HS EVER Administration Magnesium Oxide 200 mg 05/06/24 21:00 05/18/24 21:49 Magnesium Oxide 200 Mg Tablet PO 200 mg HS EVER Administration Naloxone HCl 0.1 mg 05/03/24 14:22 Naloxone Hcl 0.4 Mg/Ml Vial IV PUSH Q2M PRN Opiate Reversal * Home Med * ( 2 each 05/15/24 20:00 05/19/24 08:56 Breztri Aerosphere) INHALATION 06/05/24 19:59 Not Given Budes/Glycopyr/ Q12HRT EVER Formot 160 Mcg-9 Mcg -4.8 Mcg Ondansetron HCl 4 mg 05/02/24 10:09 05/02/24 16:02 Ondansetron Inj 4 Mg/2 Ml Vial IV PUSH 4 mg Q6H PRN Administration Nausea And Vomiting Pantoprazole Sodium 40 mg 05/09/24 09:00 05/19/24 08:45 Pantoprazole 40 Mg Tablet PO 40 mg QAM [facility] Administration Sodium Chloride 20 ml 05/03/24 05:52 Central Line Flush IV PUSH PRN PRN after blood draws Tamsulosin HCl 0.4 mg 05/06/24 21:00 05/18/24 21:49 Tamsulosin Hcl 0.4 Mg Capsule PO 0.4 mg QHS EVER Administration Radiology Results: ITS Impressions Abdomen X-Ray 05/02/24 06:01 Impression: NG tube in satisfactory position. Suspected small bowel obstruction. Renal Ultrasound 05/02/24 15:30 IMPRESSION: 1. Chronic severe left hydronephrosis. Severe left kidney atrophy. 2. Nonobstructing right kidney stone. Abdomen/Pelvis CT 05/02/24 18:09 IMPRESSION: 1. Small bowel obstruction secondary to a left inguinal hernia containing small bowel. 2. Small volume of ascites. 3. Moderate-sized sliding hiatal hernia. 4. Left kidney stones including a stone in the renal pelvis with chronic severe hydronephrosis and severe kidney atrophy. 5. Nonobstructing right kidney stones. Chest X-Ray 05/13/24 07:56 Impression: Minimal pleural effusions. Probable minimal bibasilar pulmonary edema/atelectasis, especially left lung base. Correlate clinically for pneumonia. Scrotum Ultrasound 05/16/24 15:01 IMPRESSION: 1. Bilateral scrotal edema and moderate bilateral hydroceles. Normal testes and epididymides. Labs Labs: Laboratory Results - last 24 hr 05/19/24 06:34 WBC 5.2 RBC 3.15 L Hgb 8.7 L Hct 27.6 L MCV 87.6 MCH 27.6 MCHC 31.5 L RDW 15.1 H Plt Count 171 MPV 10.5 H Immature Gran % (Auto) 0.2 Neut % (Auto) 62.4 Lymph % (Auto) 20.9 [place] % (Auto) 12.2 H Eos % (Auto) 3.3 Baso % (Auto) 1.0 Lymph # (Auto) 1.08 [place] # (Auto) 0.6 Eos # (Auto) 0.2 Baso # (Auto) 0.1 Abs Immat Gran (auto) 0.01 Absolute Neuts (auto) 3.2 Absolute Nucleated RBC 0.000 Nucleated RBC % 0.0 Sodium 132 L Potassium 3.7 Chloride 105 Carbon Dioxide 25 Anion Gap 2 L BUN 27 H Creatinine 2.10 H Estim Creat Clear Calc 29 Estimated GFR 30 L Glucose 96 Calcium 8.5 Phosphorus 3.9 Magnesium 1.7 Total Bilirubin 0.7 AST 23 ALT 31 Alkaline Phosphatase 66 Total Protein 6.0 L Albumin 2.6 L Quality VTE Prophylaxis VTE prophylaxis: pharmacologic ordered Hospitalist [facility] Advance Care Plan I have confirmed that the patient's Advanced Care Plan is present, code status is documented, or surrogate decision maker is listed in patient medical record.: Yes Medication Reconciliation I have utilized all available resources to obtain, update and review the patients current medications (includes all prescriptions, OTC, herbals, cannabis, and nutritional supplements).: Yes
--- NOTE | 2024-05-19 10:55 | P.CONUR_ITS ---
Assessment and Plan Assessment and plan (1) Scrotal edema: Code(s): N50.89 - Other specified disorders of the male genital organs Status: Acute Assessment and Plan: Recommend scrotal elevation. Maximize I&Os. Ambulate as much as possible. He has significant lower extremity edema as well. He had recent inguinal surgery. All of this increases the risk of scrotal edema. I informed him it may take several weeks for this to resolve. No signs of infection Urology Consult Note HPI Date Seen: 05/19/24 Requesting Physician: CLAUDIA Del Angel Primary Care Provider: Benedicto Westbrook MD Consult Narrative Narrative: Dylan Masters is a 84 year old male was hospitalized status post incarcerated hernia with right inguinal hernia repair. Scrotal edema is noted. Patient is voiding. He is using an external collection device. There was no signs of infection. He has significant lower extremity edema as well. He underwent a scrotal ultrasound which shows normal testes and scrotal edema. 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 The patient has no children. He used to use chewing tobacco but has not used since 2014. No alcohol or drug use Code status - Full Surrogate decision maker - Smoking status: Never smoker Smokeless tobacco user: chewing tobacco Second hand tobacco smoke exposure: No Smoking end date: 07/23/14 Additional smoking assessment comments: STATES CHEWED FROM AGE 15 UNTIL QUITTING IN 2015 Alcohol intake: never Substance use: never Substance use type: does not use Do You Feel Safe in your Home?: Yes Lack of Transportation: No Lack of Food: Never True Current Housing: I Have Housing Concerned About Future Housing: No Difficulty Paying Gas/Electric Bills: No Difficulty Paying for Meds: No Currently Unemployed: No Education: Trade/Vocational Certificate Difficulty w/ Childcare or Family Care: No Living arrangements: with family Gender identity (if verbalized by the patient): Male Spiritual care concerns: No Meds Home Medications and Allergies Home Medications ?Medication ?Instructions ?Recorded ?Confirmed ?Type ascorbic acid (vitamin C) 1,000 mg 1 g PO DAILY 07/27/20 05/02/24 History tablet (Vitamin C) aspirin 81 mg tablet,delayed 81 mg PO HS 07/27/20 05/02/24 History release (Remi Low Dose Aspirin) brinzolamide 1 %-brimonidine 0.2 % 1 drp EACH EYE TID 07/27/20 05/02/24 History eye drops,suspension (Simbrinza) latanoprost 0.005 % eye drops 1 drp RIGHT EYE HS 07/27/20 05/02/24 History vitamin E 400 unit tablet 450 mg PO DAILY 07/27/20 05/02/24 History amlodipine 10 mg tablet 5 mg PO DAILY 04/13/23 05/02/24 History magnesium 200 mg tablet 25 mg PO HS 04/13/23 05/02/24 History folic acid 800 mcg tablet 1 mg PO QAM 04/25/23 05/02/24 History cyanocobalamin (vitamin B-12) 500 1,000 mcg PO DAILY 06/26/23 05/02/24 History mcg tablet multivitamin with minerals-folic 1 tablet PO DAILY 06/26/23 05/02/24 History acid 0.4 mg tablet carboxymethylcellulose sodium 0.5 1 drp EACH EYE TID 07/12/23 05/02/24 History % eye drops in a dropperette coQ10 (ubiquinol) 100 mg capsule 200 mg PO HS 08/08/23 05/02/24 History (Qunol Silas CoQ10) ferrous sulfate 325 mg (65 mg 325 mg PO DAILY 08/08/23 05/02/24 History iron) tablet (Feosol) omeprazole 20 mg tablet,delayed 20 mg PO BID #180 tabs 10/04/23 05/02/24 Rx release diazepam 2 mg tablet 2 mg PO BID vertigo #60 tabs 12/14/23 05/02/24 Rx atenolol 50 mg tablet 50 mg PO QAM #90 tabs 01/01/24 05/02/24 Rx atorvastatin 40 mg tablet 40 mg PO QAM #90 tabs 01/07/24 05/02/24 Rx albuterol sulfate 90 mcg/actuation 2 puff inhalation .q6hr PRN 05/02/24 05/02/24 History aerosol inhaler wheezing apple cider vinegar 250 mg 250 mg PO HS 05/02/24 05/02/24 History chewable tablet budesonide 160 mcg-glycopyr 9 2 inh inhalation BID 05/02/24 05/02/24 History mcg-formot 4.8 mcg/actuation HFA inhaler (Breztri Aerosphere) fluticasone propionate 50 1 spray intranasal HS PRN nasal 05/02/24 05/02/24 History mcg/actuation nasal congestion spray,suspension (24 Hour Allergy Relief) meclizine 25 mg tablet 25 mg PO QID PRN dizziness 05/02/24 05/02/24 History tamsulosin 0.4 mg capsule 0.4 mg PO QHS 05/02/24 05/02/24 History vit C 250 mg-vit E 90 mg-zinc 10 1 cap PO QAM AND QHS 05/02/24 05/02/24 History mg-copper 1 [id number] capsule (Eye Health Vitamin-Mineral) Allergies Allergy/AdvReac Type Severity Reaction Status Date / Time Penicillins Allergy Severe Hives Verified 05/02/24 03:01 Vital Signs Vital Signs - 24 hr 05/18/24 14:00 05/18/24 22:00 05/19/24 06:00 Temperature 99.3 F 98.6 F 98.0 F Pulse Rate 106 H 82 88 Respiratory Rate 18 20 16 Blood Pressure 111/57 L 120/62 106/65 Pulse Oximetry 96 96 97 Exam 2 Const: General: cooperative, healthy appearing, no acute distress, alert, awake and Physically active Nutritional Appearance: average body habitus O rientation/consciousness: patient oriented x3 HENMT: Head: normal to inspection Eyes: General: appearance normal, both eyes and all related structures Neck: Neck: normal visual inspection and full ROM Resp: Effort & Inspection: normal respiratory effort, able to speak in complete sentences and no cough GI: Inspection: normal to inspection (Inguinal incision healing well) : Other: He is wearing an external collection device on his phallus. Scrotum is edematous. Unable to palpate intrascrotal structures. No signs of erythema or infection Back/Spine/Pelvis: Back: no CVA tenderness Skin: General skin exam: normal color, elasticity normal and turgor normal Other: Significant lower extremity pitting edema noted Neuro: General: oriented to person, oriented to place, oriented to time, patient oriented x3 and moves all extremities Extrem: General: normal to inspection and full ROM Psych: Appearance: grossly normal Results Labs 05/19/24 06:34 05/19/24 06:34 Labs: Short CBC 05/19/24 Range/Units 06:34 WBC 5.2 (4.5-10.0) K/mm3 Hgb 8.7 L (14.0-18.0) g/dL Hct 27.6 L (42.0-52.0) % Plt Count 171 (150-375) k/mm3 BMP 05/19/24 06:34 Sodium 132 L Potassium 3.7 Chloride 105 Carbon Dioxide 25 BUN 27 H Creatinine 2.10 H Glucose 96 Calcium 8.5 Liver Function 05/19/24 Range/Units 06:34 Total Bilirubin 0.7 (0.2-1.3) mg/dL AST 23 (17-59) U/L ALT 31 (6-50) U/L Alkaline Phosphatase 66 (38-126) U/L Albumin 2.6 L (3.5-5.1) g/dL Imaging My impression: Scrotal ultrasound report reviewed
[2024-05-19 14:00] VITALS: BP 113/60; PULSE 110; RESP 18; TEMP 37.2; O2SAT 98
[2024-05-19] MEDS: TAMSULOSIN HCL 0.4 MG CAPSULE PO (21:06)
[2024-05-19] MEDS: MAGNESIUM OXIDE 200 MG TABLET PO (21:06)
[2024-05-19] MEDS: LATANOPROST 0.005% OP SOLN 2.5 ML BTL 1 DROP RIGHT EYE (21:09)
[2024-05-19 22:00] VITALS: BP 115/64; PULSE 97; RESP 18; TEMP 37.7; O2SAT 96
[2024-05-20] VITALS (7 sets, daily range): BP systolic 106–125; BP diastolic 59–80; PULSE 93–105; RESP 14–18; TEMP 36.2–37.7; O2SAT 94–99
[2024-05-20] MEDS: BRIMONIDINE TARTRATE 0.2% OP SOLN 5 ML BTL 1 DROP EACH EYE ×3 (05:41→21:54)
[2024-05-20] MEDS: BRINZOLAMIDE 1% OPHTH SUSP 10 ML 1 DROP EACH EYE ×3 (05:41→21:55)
[2024-05-20 06:34] LABS: Hematocrit 29.9 % (42.0-52.0); Hemoglobin 9.7 g/dL (14.0-18.0); Mean Corpuscular HGB Conc 32.4 g/dl (32-36); Mean Corpuscular Volume 86.2 fl (80-100); Mean Platelet Volume 11.1 fl (7.4-10.4); Platelet Count Result 160 k/mm3 (150-375); Red Blood Count 3.47 M/mm3 (4.6-6.20); Red Cell Distribution Width 14.7 % (11.5-14.5); White Blood Count 4.5 K/mm3 (4.5-10.0)
[2024-05-20 06:50] LABS: Alanine Aminotransferase 51 U/L (6-50); Albumin Level 2.9 g/dL (3.5-5.1); Alkaline Phosphatase 87 U/L (38-126); Anion Gap 7 mmol/L (4-12); Aspartate Amino Transferase 38 U/L (17-59); Bilirubin,Total 1.1 mg/dL (0.2-1.3); Blood Urea Nitrogen 28 mg/dL (9-20); Calcium 8.7 mg/dL (8.4-10.2); Carbon Dioxide 24 mmol/L (22-30); Chloride 102 mmol/L (98-107); Estimated CRCL calculation 28 ml/min; Estimated Glomerular Filt Rate 33; Glucose 96 mg/dL (65-110); Potassium 3.9 mmol/L (3.4-5.0); Sodium 133 mmol/L (137-145)
--- NOTE | 2024-05-20 07:32 | P.PNIM_ITS ---
Progress Note: A&P Assessment and Plan (1) Shock: Code(s): R57.9 - Shock, unspecified Status: Resolved Assessment and Plan: S/p IVF and pressors Completed Cefepime, Flagyl and p.o. Vancomycin Blood cultures negative Resolved (2) C. difficile colitis: Code(s): A04.72 - Enterocolitis due to Clostridium difficile, not specified as recurrent Status: Acute Assessment and Plan: Completed vancomycin Off FMS Diarrhea resolving (3) Hypokalemia: Code(s): E87.6 - Hypokalemia Status: Resolved Assessment and Plan: * Potassium 4.2 (4) SBO (small bowel obstruction): Code(s): K56.609 - Unspecified intestinal obstruction, unspecified as to partial versus complete obstruction Status: Acute Assessment and Plan: * S/P open incarcerated left inguinal hernia repair with mesh, no bowel ischemia noted * now tolerating diet SUrgery following (5) Atrial fibrillation: Code(s): I48.91 - Unspecified atrial fibrillation Status: Acute Assessment and Plan: * Patient went into AFib 05/03. Rate controlled. * Echo showing EF 50-55%, abnormal diastolic fxn, possible PFO and mild valvular disease. * Cardiology following * Monitor on tele for now. * Eliquis 2.5mg bid (6) Incarcerated left inguinal hernia: Code(s): K40.30 - Unilateral inguinal hernia, with obstruction, without gangrene, not specified as recurrent Status: Acute Assessment and Plan: As above (7) Acute on chronic renal failure: Code(s): N17.9 - Acute kidney failure, unspecified; N18.9 - Chronic kidney disease, unspecified Status: Acute Assessment and Plan: * Creatinine 1.9, improving * Nephrology following * Avoid nephrotoxic medication or testing with IV contrast * Will remove beasley today (8) Obstructive uropathy: Code(s): N13.9 - Obstructive and reflux uropathy, unspecified Status: Acute Assessment and Plan: * CT Abd/Pelvis 05/02 shows multiple nonobstructing right renal stones, markedly enlarged left kidney with marked, severe chronic hydronephrosis and severe diffuse cortical thinning. There is a large, presumably chronically obstructing stone at the left renal pelvis region measuring 3.0 x 2.0 cm in size. Additional smaller nonobstructing left renal stones are also present. * Renal US showing chronic severe left hydronephrosis and severe left kidney atrophy * UA is not consistent with UTI. * Known finding per patient hx. 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 * [place] this is an incidental finding and not contributing to his current illness * Urology felt the right renal stones should be treated and will arrange for t his as outpatient. 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 for 6 days Appreciate surgery input Plan Full code DVT prophylaxis on Sq Lovenox Awaiting placement Subjective Date/time seen: 05/20/24 07:32 Interval history: Pending evaluation from surgery for scrotal edema.Patient was concerned about his scrotal edema and advised its not an uncommon finding after inguinal repair. Patient reports he had previous inguinal hernia surgery and never had this problem. Review of Systems Review of Systems: All systems reviewed & are unremarkable except as noted in HPI and below Exam Narrative: General: In no acute distress, well nourished Head: atraumatic, no encephalopathy Eyes: PERRLA, sclera clear ENT: moist mucous membranes, nasal passages clear Neck: supple, no JVD, no adenopathy, trachea midline Cardiac: Irregular rhythm of Atrial Fibrillation. No murmur, gallops or friction rubs, peripheral pulses intact. Respiratory: Lungs clear to auscultation, no adventitious lung sounds, currently on room air Gastrointestinal: soft, non-distended, non-tender, normoactive bowel sounds. : voiding without difficulty per purewick.Scrotal edema Extremities: moves all extremities well, no edema, good ROM, strength 5/5 Skin: clean, dry, intact. Surgical dressing midline without shadowing. Neuro: Alert and oriented x4, cranial nerves intact, no neuro deficits. Psych: normal mood, normal affect, interactive Objective Data Vital Signs Vital Signs: Vital Signs - 24 hr 05/19/24 14:00 05/19/24 22:00 05/20/24 06:00 Temperature 99.0 F 99.8 F H 98.7 F Pulse Rate 110 H 97 94 Respiratory Rate 18 18 18 Blood Pressure 113/60 115/64 110/63 Pulse Oximetry 98 96 96 Intake/Output Intake/Output: Intake & Output 05/17/24 05/18/24 05/19/24 05/20/24 23:59 23:59 23:59 23:59 Intake Total 1448 1315 820 200 Output Total 2600 850 1000 700 Balance -1152 465 180 -500 Meds/Results Medications: Active Medications Generic Name Dose Route Start Last Admin Trade Name Freq PRN Reason Stop Dose Admin Acetaminophen 650 mg 05/09/24 11:59 05/18/24 15:39 Acetaminophen 325 Mg Tablet BY MOUTH 650 mg Q6H PRN Administration Mild Pain (1-3) or Fever Artificial Tears 1 drop 05/07/24 18:00 05/19/24 16:40 Artificial Tears Ophth Soln 15 Ml Bottle EACH EYE 1 drop TID EVER Administration Ascorbic Acid 1,000 mg 05/07/24 09:00 05/19/24 08:45 Ascorbic Acid 500 Mg Tablet PO 1,000 mg DAILY EVER Administration Atorvastatin Calcium 40 mg 05/07/24 09:00 05/19/24 08:45 Atorvastatin 40 Mg Tablet PO 40 mg QAM EVER Administration Brimonidine Tartrate 1 drop 05/02/24 14:00 05/20/24 05:41 Brimonidine Tartrate 0.2% Op Soln 5 Ml Btl EACH EYE 1 drop Q8HR EVER Administration Brinzolamide 1 drop 05/02/24 14:00 05/20/24 05:41 Brinzolamide 1% Ophth Susp 10 Ml EACH EYE 1 drop Q8HR EVER Administration Cyanocobalamin 1,000 mcg 05/07/24 09:00 05/19/24 08:45 Cyanocobalamin 1,000 Mcg Tablet PO 1,000 mcg DAILY EVER Administration Fluticasone Propionate 1 spray 05/06/24 17:24 Fluticasone Propionate 0.05% Na Spr 16 Gm Btl (*Bkc) NASAL HS PRN nasal congestion Fluticasone/Umeclidinium/Vilanterol 1 puff 05/11/24 08:00 05/19/24 08:37 Fluticasone/Umeclidin/Vilanter 100-62.5-25 Mcg Ellipta INHALATION Not Given DAILYRT EVER Folic Acid 0.8 mg 05/07/24 09:00 05/19/24 08:45 Folic Acid 0.4 Mg Tablet PO 0.8 mg QAM EVER Administration Furosemide 40 mg 05/20/24 09:00 Furosemide 40 Mg Tablet PO 05/21/24 12:00 DAILY EVER Heparin Sodium (Porcine) 5,000 units 05/08/24 12:35 05/19/24 21:07 Heparin Sodium 5,000 Units/Ml Vial SUB-Q 5,000 units Q12HR EVER Administration Latanoprost 1 drop 05/02/24 21:00 05/19/24 21:09 Latanoprost 0.005% Op Soln 2.5 Ml Btl RIGHT EYE 1 drop HS EVER Administration Magnesium Oxide 200 mg 05/06/24 21:00 05/19/24 21:06 Magnesium Oxide 200 Mg Tablet PO 200 mg HS EVER Administration Naloxone HCl 0.1 mg 05/03/24 14:22 Naloxone Hcl 0.4 Mg/Ml Vial IV PUSH Q2M PRN Opiate Reversal * Home Med * ( 2 each 05/15/24 20:00 05/19/24 21:46 Breztri Aerosphere) INHALATION 06/05/24 19:59 Not Given Budes/Glycopyr/ Q12HRT [facility] Formot 160 Mcg-9 Mcg -4.8 Mcg Ondansetron HCl 4 mg 05/02/24 10:09 05/02/24 16:02 Ondansetron Inj 4 Mg/2 Ml Vial IV PUSH 4 mg Q6H PRN Administration Nausea And Vomiting Pantoprazole Sodium 40 mg 05/09/24 09:00 05/19/24 08:45 Pantoprazole 40 Mg Tablet PO 40 mg QAM EVER Administration Sodium Chloride 20 ml 05/03/24 05:52 Central Line Flush IV PUSH PRN PRN after blood draws Tamsulosin HCl 0.4 mg 05/06/24 21:00 05/19/24 21:06 Tamsulosin Hcl 0.4 Mg Capsule PO 0.4 mg QHS EVER Administration Radiology Results: ITS Impressions Abdomen X-Ray 05/02/24 06:01 Impression: NG tube in satisfactory position. Suspected small bowel obstruction. Renal Ultrasound 05/02/24 15:30 IMPRESSION: 1. Chronic severe left hydronephrosis. Severe left kidney atrophy. 2. Nonobstructing right kidney stone. Abdomen/Pelvis CT 05/02/24 18:09 IMPRESSION: 1. Small bowel obstruction secondary to a left inguinal hernia containing small bowel. 2. Small volume of ascites. 3. Moderate-sized sliding hiatal hernia. 4. Left kidney stones including a stone in the renal pelvis with chronic severe hydronephrosis and severe kidney atrophy. 5. Nonobstructing right kidney stones. Chest X-Ray 05/13/24 07:56 Impression: Minimal pleural effusions. Probable minimal bibasilar pulmonary edema/atelectasis, especially left lung base. Correlate clinically for pneumonia. Scrotum Ultrasound 05/16/24 15:01 IMPRESSION: 1. Bilateral scrotal edema and moderate bilateral hydroceles. Normal testes and epididymides. Labs Labs: Laboratory Results - last 24 hr 05/20/24 06:14 WBC 4.5 RBC 3.47 L Hgb 9.7 L Hct 29.9 L MCV 86.2 MCH 28.0 MCHC 32.4 RDW 14.7 H Plt Count 160 MPV 11.1 H Sodium 133 L Potassium 3.9 Chloride 102 Carbon Dioxide 24 Anion Gap 7 BUN 28 H Creatinine 1.94 H Estim Creat Clear Calc 28 Estimated GFR 33 L Glucose 96 Calcium 8.7 Total Bilirubin 1.1 AST 38 ALT 51 H Alkaline Phosphatase 87 Total Protein 6.0 L Albumin 2.9 L Quality VTE Prophylaxis VTE prophylaxis: pharmacologic ordered Hospitalist MIPS Advance Care Plan I have confirmed that the patient's Advanced Care Plan is present, code status is documented, or surrogate decision maker is listed in patient medical record.: Yes Medication Reconciliation I have utilized all available resources to obtain, update and review the patients current medications (includes all prescriptions, OTC, herbals, cannabis, and nutritional supplements).: Yes
[2024-05-20] MEDS: ARTIFICIAL TEARS OPHTH SOLN 15 ML BOTTLE 1 DROP EACH EYE ×3 (08:34→17:31)
[2024-05-20] MEDS: ASCORBIC ACID 500 MG TABLET 1000 MG PO (08:34)
[2024-05-20] MEDS: ATORVASTATIN 40 MG TABLET PO (08:34)
[2024-05-20] MEDS: FOLIC ACID 0.4 MG TABLET 0.8 MG PO (08:34)
[2024-05-20] MEDS: PANTOPRAZOLE 40 MG TABLET PO (08:34)
[2024-05-20] MEDS: HEPARIN SODIUM 5,000 UNITS/ML VIAL 5000 UNITS SUB-Q ×2 (08:35→21:51)
[2024-05-20] MEDS: FUROSEMIDE 40 MG TABLET PO (08:35)
[2024-05-20] MEDS: CYANOCOBALAMIN 1,000 MCG TABLET 1000 MCG PO (08:35)
--- NOTE | 2024-05-20 13:41 | P.PNGS_ITS ---
Progress Note: A&P Assessment and Plan (1) Incarcerated left inguinal hernia: Code(s): K40.30 - Unilateral inguinal hernia, with obstruction, without gangrene, not specified as recurrent Status: Acute Assessment and Plan: * Postoperative scrotal swelling not surprising, especially given his extensive hospitalization. He is now 17 days postop and the swelling seems to be improving overall. No acute surgical issues. Repair intact and incision is healing well. * Agree with scrotal elevation and scrotal support. Surgically stable for discharge. Follow-up with Dr. Phillips in 2 weeks. Subjective Subjective Date/Time Seen: 05/20/24 13:41 Post Op day: 17 Patient reports: voiding w/o difficulty and afebrile Interval history: I was asked to evaluate the patient today for scrotal swelling who is 17 days postop following an open incarcerated left inguinal hernia repair with mesh. He reports scrotal swelling has been present postoperatively, but overall seems to be improving. Urology evaluated the patient yesterday as well. he had a scrotal support put on today. Denies any groin or scrotal pain. He is tolerating a diet and moving his bowels. No other complaints at this time. Per Hospitalist, swelling seemed to improve after diuresis. Exam GI: Inspection: non-distended and incision (left groin incision healing well with glue intact, no erythema or drainage) GI Palp: Yes Soft to palpation, No Tenderness to palpation present (GI) and No Guarding due to palpation present ( GI) Auscultation: normal bowel sounds : Scrotum: no ecchymosis, not erythematous, no inguinal hernias, scrotal swelling diffuse and other (nontender) Testes: other Objective Data Vital Signs Vital Signs: Vital Signs - 24 hr 05/19/24 14:00 05/19/24 22:00 05/20/24 06:00 Temperature 99.0 F 99.8 F H 98.7 F Pulse Rate 110 H 97 94 Respiratory Rate 18 18 18 Blood Pressure 113/60 115/64 110/63 Pulse Oximetry 98 96 96 Oxygen Delivery 05/20/24 08:00 05/20/24 08:35 05/20/24 10:24 Temperature Pulse Rate Respiratory Rate Blood Pressure 125/80 Pulse Oximetry 94 Oxygen Delivery Room Air Room Air 05/20/24 10:55 Temperature Pulse Rate Respiratory Rate Blood Pressure Pulse Oximetry Oxygen Delivery Room Air Intake/Output Intake/Output: Intake & Output 05/17/24 05/18/24 05/19/24 05/20/24 23:59 23:59 23:59 23:59 Intake Total 1448 1315 820 440 Output Total 2600 850 1000 700 Balance -1152 465 -180 -260 Meds/Results Medications: Active Medications Generic Name Dose Route Start Last Admin Trade Name Freq PRN Reason Stop Dose Admin Acetaminophen 650 mg 05/09/24 11:59 05/18/24 15:39 Acetaminophen 325 Mg Tablet BY MOUTH 650 mg Q6H PRN Administration Mild Pain (1-3) or Fever Artificial Tears 1 drop 05/07/24 18:00 05/20/24 08:34 Artificial Tears Ophth Soln 15 Ml Bottle EACH EYE 1 drop TID EVER Administration Ascorbic Acid 1,000 mg 05/07/24 09:00 05/20/24 08:34 Ascorbic Acid 500 Mg Tablet PO 1,000 mg DAILY EVER Administration Atorvastatin Calcium 40 mg 05/07/24 09:00 05/20/24 08:34 Atorvastatin 40 Mg Tablet PO 40 mg QAM EVER Administration Brimonidine Tartrate 1 drop 05/02/24 14:00 05/20/24 05:41 Brimonidine Tartrate 0.2% Op Soln 5 Ml Btl EACH EYE 1 drop Q8HR EVER Administration Brinzolamide 1 drop 05/02/24 14:00 05/20/24 05:41 Brinzolamide 1% Ophth Susp 10 Ml EACH EYE 1 drop Q8HR EVER Administration Cyanocobalamin 1,000 mcg 05/07/24 09:00 05/20/24 08:35 Cyanocobalamin 1,000 Mcg Tablet PO 1,000 mcg DAILY EVER Administration Fluticasone Propionate 1 spray 05/06/24 17:24 Fluticasone Propionate 0.05% Na Spr 16 Gm Btl (*Bkc) NASAL HS PRN nasal congestion Fluticasone/Umeclidinium/Vilanterol 1 puff 05/11/24 08:00 05/20/24 08:13 Fluticasone/Umeclidin/Vilanter 100-62.5-25 Mcg Ellipta INHALATION Not Given DAILYRT EVER Folic Acid 0.8 mg 05/07/24 09:00 05/20/24 08:34 Folic Acid 0.4 Mg Tablet PO 0.8 mg QAM EVER Administration Furosemide 40 mg 05/20/24 09:00 05/20/24 08:35 Furosemide 40 Mg Tablet PO 05/21/24 12:00 40 mg DAILY EVER Administration Heparin Sodium (Porcine) 5,000 units 05/08/24 12:35 05/20/24 08:35 Heparin Sodium 5,000 Units/Ml Vial SUB-Q 5,000 units Q12HR EVER Administration Latanoprost 1 drop 05/02/24 21:00 05/19/24 21:09 Latanoprost 0.005% Op Soln 2.5 Ml Btl RIGHT EYE 1 drop HS EVER Administration Magnesium Oxide 200 mg 05/06/24 21:00 05/19/24 21:06 Magnesium Oxide 200 Mg Tablet PO 200 mg HS EVER Administration Naloxone HCl 0.1 mg 05/03/24 14:22 Naloxone Hcl 0.4 Mg/Ml Vial IV PUSH Q2M PRN Opiate Reversal * Home Med * ( 2 each 05/15/24 20:00 05/20/24 08:13 Breztri Aerosphere) INHALATION 06/05/24 19:59 Not Given Budes/Glycopyr/ Q12HRT EVER Formot 160 Mcg-9 Mcg -4.8 Mcg Ondansetron HCl 4 mg 05/02/24 10:09 05/02/24 16:02 Ondansetron Inj 4 Mg/2 Ml Vial IV PUSH 4 mg Q6H PRN Administration Nausea And Vomiting Pantoprazole Sodium 40 mg 05/09/24 09:00 05/20/24 08:34 Pantoprazole 40 Mg Tablet PO 40 mg QAM EVER Administration Sodium Chloride 20 ml 05/03/24 05:52 Central Line Flush IV PUSH PRN PRN after blood draws Tamsulosin HCl 0.4 mg 05/06/24 21:00 05/19/24 21:06 Tamsulosin Hcl 0.4 Mg Capsule PO 0.4 mg QHS EVER Administration Radiology Results: ITS Impressions Abdomen X-Ray 05/02/24 06:01 Impression: NG tube in satisfactory position. Suspected small bowel obstruction. Renal Ultrasound 05/02/24 15:30 IMPRESSION: 1. Chronic severe left hydronephrosis. Severe left kidney atrophy. 2. Nonobstructing right kidney stone. Abdomen/Pelvis CT 05/02/24 18:09 IMPRESSION: 1. Small bowel obstruction secondary to a left inguinal hernia containing small bowel. 2. Small volume of ascites. 3. Moderate-sized sliding hiatal hernia. 4. Left kidney stones including a stone in the renal pelvis with chronic severe hydronephrosis and severe kidney atrophy. 5. Nonobstructing right kidney stones. Chest X-Ray 05/13/24 07:56 Impression: Minimal pleural effusions. Probable minimal bibasilar pulmonary edema/atelectasis, especially left lung base. Correlate clinically for pneumonia. Scrotum Ultrasound 05/16/24 15:01 IMPRESSION: 1. Bilateral scrotal edema and moderate bilateral hydroceles. Normal testes and epididymides. Labs Labs: Laboratory Results - last 24 hr 05/20/24 06:14 WBC 4.5 RBC 3.47 L Hgb 9.7 L Hct 29.9 L MCV 86.2 MCH 28.0 MCHC 32.4 RDW 14.7 H Plt Count 160 MPV 11.1 H Sodium 133 L Potassium 3.9 Chloride 102 Carbon Dioxide 24 Anion Gap 7 BUN 28 H Creatinine 1.94 H Estim Creat Clear Calc 28 Estimated GFR 33 L Glucose 96 Calcium 8.7 Total Bilirubin 1.1 AST 38 ALT 51 H Alkaline Phosphatase 87 Total Protein 6.0 L Albumin 2.9 L
[2024-05-20] MEDS: ACETAMINOPHEN 325 MG TABLET 650 MG BY MOUTH (13:51)
[2024-05-20] MEDS: LATANOPROST 0.005% OP SOLN 2.5 ML BTL 1 DROP RIGHT EYE (21:30)
[2024-05-20] MEDS: TAMSULOSIN HCL 0.4 MG CAPSULE PO (21:51)
[2024-05-20] MEDS: MAGNESIUM OXIDE 200 MG TABLET PO (21:51)
[2024-05-21 05:47] VITALS: BP 114/64; PULSE 93; RESP 14; TEMP 33.8; O2SAT 98
[2024-05-21] MEDS: BRIMONIDINE TARTRATE 0.2% OP SOLN 5 ML BTL 1 DROP EACH EYE ×3 (05:59→21:46)
[2024-05-21] MEDS: BRINZOLAMIDE 1% OPHTH SUSP 10 ML 1 DROP EACH EYE ×3 (06:00→21:30)
[2024-05-21 07:15] VITALS: PULSE 90; RESP 18; O2SAT 97
[2024-05-21] MEDS: GLYCOPYRROLATE INHALATION (07:15)
[2024-05-21] MEDS: FLUTICASONE/UMECLIDIN/VILANTER 100-62.5-25 MCG ELLIPTA 1 PUFF INHALATION (07:15)
[2024-05-21] MEDS: FORMOTEROL INHALATION (07:15)
[2024-05-21] MEDS: BUDESONIDE INHALATION (07:15)
--- NOTE | 2024-05-21 08:41 | P.PNIM_ITS ---
Progress Note: A&P Assessment and Plan (1) Shock: Code(s): R57.9 - Shock, unspecified Status: Resolved (2) SBO (small bowel obstruction): Code(s): K56.609 - Unspecified intestinal obstruction, unspecified as to partial versus complete obstruction Status: Acute (3) Incarcerated left inguinal hernia: Code(s): K40.30 - Unilateral inguinal hernia, with obstruction, without gangrene, not specified as recurrent Status: Acute Plan (1) Shock: Code(s): R57.9 - Shock, unspecified Status: Resolved Assessment and Plan: S/p IVF and pressors Completed Cefepime, Flagyl and p.o. Vancomycin Blood cultures negative Resolved Patient is afebrile, blood pressure stable (2) C. difficile colitis: Code(s): A04.72 - Enterocolitis due to Clostridium difficile, not specified as recurrent Status: Acute Assessment and Plan: Completed vancomycin Off FMS Diarrhea resolving (3) Hypokalemia: Code(s): E87.6 - Hypokalemia Status: Resolved Assessment and Plan: * Potassium 4.2 (4) SBO (small bowel obstruction): Code(s): K56.609 - Unspecified intestinal obstruction, unspecified as to partial versus complete obstruction Status: Acute Assessment and Plan: * S/P open incarcerated left inguinal hernia repair with mesh, no bowel ischemia noted * now tolerating diet SUrgery following (5) Atrial fibrillation: Code(s): I48.91 - Unspecified atrial fibrillation Status: Acute Assessment and Plan: * Patient went into AFib 05/03. Rate controlled. * Echo showing EF 50-55%, abnormal diastolic fxn, possible PFO and mild valvular disease. * Cardiology following * Monitor on tele for now. * Eliquis 2.5mg bid (6) Incarcerated left inguinal hernia: Code(s): K40.30 - Unilateral inguinal hernia, with obstruction, without gangrene, not specified as recurrent Status: Acute Assessment and Plan: As above (7) Acute on chronic renal failure: Code(s): N17.9 - Acute kidney failure, unspecified; N18.9 - Chronic kidney disease, unspecified Status: Acute Assessment and Plan: * Creatinine 1.9, improving * Nephrology following * Avoid nephrotoxic medication or testing with IV contrast * Will remove beasley today (8) Obstructive uropathy: Code(s): N13.9 - Obstructive and reflux uropathy, unspecified Status: Acute Assessment and Plan: * CT Abd/Pelvis 05/02 shows multiple nonobstructing right renal stones, markedly enlarged left kidney with marked, severe chronic hydronephrosis and severe diffuse cortical thinning. There is a large, presumably chronically obstructing stone at the left renal pelvis region measuring 3.0 x 2.0 cm in size. Additional smaller nonobstructing left renal stones are also present. * Renal US showing chronic severe left hydronephrosis and severe left kidney atrophy * UA is not consistent with UTI. * Known finding per patient hx. 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 * [place] this is an incidental finding and not contributing to his current illness * Urology felt the right renal stones should be treated and will arrange for this as outpatient. 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 for 6 days Appreciate surgery input Plan Full code DVT prophylaxis on Sq Lovenox Awaiting placement Subjective Date/time seen: 05/21/24 08:41 Interval history: Saw exam patient today. Patient denies abdomen pain, nausea vomiting. Patient tolerated diet well. Patient denies is growing pain . Exam Narrative: General: In no acute distress, well nourished Head: atraumatic, no encephalopathy Eyes: PERRLA, sclera clear ENT: moist mucous membranes, nasal passages clear Neck: supple, no JVD, no adenopathy, trachea midline Cardiac: Irregular rhythm of Atrial Fibrillation. No murmur, gallops or friction rubs, peripheral pulses intact. Respiratory: Lungs clear to auscultation, no adventitious lung sounds, currently on room air Gastrointestinal: soft, non-distended, non-tender, normoactive bowel sounds. : voiding without difficulty per purewick.Scrotal edema that is subsiding Extremities: moves all extremities well, no edema, good ROM, strength 5/5 Skin: clean, dry, intact. Surgical dressing midline without shadowing. Neuro: Alert and oriented x4, cranial nerves intact, no neuro deficits. Psych: normal mood, normal affect, interactive Objective Data Vital Signs Vital Signs: Vital Signs - 24 hr 05/20/24 10:24 05/20/24 10:55 05/20/24 13:51 Temperature 99.8 F H Pulse Rate Respiratory Rate Blood Pressure Pulse Oximetry Oxygen Delivery Room Air Room Air 05/20/24 14:00 05/20/24 14:51 05/20/24 20:00 Temperature 99.8 F H 98.8 F Pulse Rate 105 H Respiratory Rate 18 Blood Pressure 113/68 Pulse Oximetry 97 Oxygen Delivery Room Air 05/20/24 20:47 05/21/24 05:47 05/21/24 07:15 Temperature 97.2 F L 93 F L Pulse Rate 93 93 90 Respiratory Rate 14 14 18 Blood Pressure 106/59 L 114/64 Pulse Oximetry 99 98 97 Oxygen Delivery Room Air Intake/Output Intake/Output: Intake & Output 05/18/24 05/19/24 05/20/24 05/21/24 23:59 23:59 23:59 23:59 Intake Total 1315 820 790 Output Total 850 1000 1300 800 Balance 465 -180 -510 -800 Meds/Results Medications: Active Medications Generic Name Dose Route Start Last Admin Trade Name Freq PRN Reason Stop Dose Admin Acetaminophen 650 mg 05/09/24 11:59 05/20/24 13:51 Acetaminophen 325 Mg Tablet BY MOUTH 650 mg Q6H PRN Administration Mild Pain (1-3) or Fever Artificial Tears 1 drop 05/07/24 18:00 05/20/24 17:31 Artificial Tears Ophth Soln 15 Ml Bottle EACH EYE 1 drop TID EVER Administration Ascorbic Acid 1,000 mg 05/07/24 09:00 05/20/24 08:34 Ascorbic Acid 500 Mg Tablet PO 1,000 mg DAILY EVER Administration Atorvastatin Calcium 40 mg 05/07/24 09:00 05/20/24 08:34 Atorvastatin 40 Mg Tablet PO 40 mg QAM EVER Administration Brimonidine Tartrate 1 drop 05/02/24 14:00 05/21/24 05:59 Brimonidine Tartrate 0.2% Op Soln 5 Ml Btl EACH EYE 1 drop Q8HR EVER Administration Brinzolamide 1 drop 05/02/24 14:00 05/21/24 06:00 Brinzolamide 1% Ophth Susp 10 Ml EACH EYE 1 drop Q8HR EVER Administration Cyanocobalamin 1,000 mcg 05/07/24 09:00 05/20/24 08:35 Cyanocobalamin 1,000 Mcg Tablet PO 1,000 mcg DAILY EVER Administration Fluticasone Propionate 1 spray 05/06/24 17:24 Fluticasone Propionate 0.05% Na Spr 16 Gm Btl (*Bk) NASAL HS PRN nasal congestion Fluticasone/Umeclidinium/Vilanterol 1 puff 05/11/24 08:00 05/21/24 07:15 Fluticasone/Umeclidin/Vilanter 100-62.5-25 Mcg Ellipta INHALATION 1 puff DAILYRT EVER Administration Folic Acid 0.8 mg 05/07/24 09:00 05/20/24 08:34 Folic Acid 0.4 Mg Tablet PO 0.8 mg QAM EVER Administration Furosemide 40 mg 05/20/24 09:00 05/20/24 08:35 Furosemide 40 Mg Tablet PO 05/21/24 12:00 40 mg DAILY EVER Administration Heparin Sodium (Porcine) 5,000 units 05/08/24 12:35 05/20/24 21:51 Heparin Sodium 5,000 Units/Ml Vial SUB-Q 5,000 units Q12HR EVER Administration Latanoprost 1 drop 05/02/24 21:00 05/20/24 21:30 Latanoprost 0.005% Op Soln 2.5 Ml Btl RIGHT EYE 1 drop HS EVER Administration Magnesium Oxide 200 mg 05/06/24 21:00 05/20/24 21:51 Magnesium Oxide 200 Mg Tablet PO 200 mg HS EVER Administration Naloxone HCl 0.1 mg 05/03/24 14:22 Naloxone Hcl 0.4 Mg/Ml Vial IV PUSH Q2M PRN Opiate Reversal * Home Med * ( 2 each 05/15/24 20:00 05/21/24 07:15 Breztri Aerosphere) INHALATION 06/05/24 19:59 2 each Budes/Glycopyr/ Q12HRT EVER Administration Formot 160 Mcg-9 Mcg -4.8 Mcg Ondansetron HCl 4 mg 05/02/24 10:09 05/02/24 16:02 Ondansetron Inj 4 Mg/2 Ml Vial IV PUSH 4 mg Q6H PRN Administration Nausea And Vomiting Pantoprazole Sodium 40 mg 05/09/24 09:00 05/20/24 08:34 Pantoprazole 40 Mg Tablet PO 40 mg QAM EVER Administration Sodium Chloride 20 ml 05/03/24 05:52 Central Line Flush IV PUSH PRN PRN after blood draws Tamsulosin HCl 0.4 mg 05/06/24 21:00 05/20/24 21:51 Tamsulosin Hcl 0.4 Mg Capsule PO 0.4 mg QHS EVER Administration Radiology Results: ITS Impressions Abdomen X-Ray 05/02/24 06:01 Impression: NG tube in satisfactory position. Suspected small bowel obstruction. Renal Ultrasound 05/02/24 15:30 IMPRESSION: 1. Chronic severe left hydronephrosis. Severe left kidney atrophy. 2. Nonobstructing right kidney stone. Abdomen/Pelvis CT 05/02/24 18:09 IMPRESSION: 1. Small bowel obstruction secondary to a left inguinal hernia containing small bowel. 2. Small volume of ascites. 3. Moderate-sized sliding hiatal hernia. 4. Left kidney stones including a stone in the renal pelvis with chronic severe hydronephrosis and severe kidney atrophy. 5. Nonobstructing right kidney stones. Chest X-Ray 05/13/24 07:56 Impression: Minimal pleural effusions. Probable minimal bibasilar pulmonary edema/atelectasis, especially left lung base. Correlate clinically for pneumonia. Scrotum Ultrasound 05/16/24 15:01 IMPRESSION: 1. Bilateral scrotal edema and moderate bilateral hydroceles. Normal testes and epididymides.
[2024-05-21] MEDS: ATORVASTATIN 40 MG TABLET PO (09:44)
[2024-05-21] MEDS: CYANOCOBALAMIN 1,000 MCG TABLET 1000 MCG PO (09:44)
[2024-05-21] MEDS: ARTIFICIAL TEARS OPHTH SOLN 15 ML BOTTLE 1 DROP EACH EYE ×3 (09:44→17:11)
[2024-05-21] MEDS: FOLIC ACID 0.4 MG TABLET 0.8 MG PO (09:45)
[2024-05-21] MEDS: HEPARIN SODIUM 5,000 UNITS/ML VIAL 5000 UNITS SUB-Q ×2 (09:45→20:40)
[2024-05-21] MEDS: PANTOPRAZOLE 40 MG TABLET PO (09:45)
[2024-05-21] MEDS: FUROSEMIDE 40 MG TABLET PO (09:45)
[2024-05-21] MEDS: ASCORBIC ACID 500 MG TABLET 1000 MG PO (09:45)
[2024-05-21 14:00] VITALS: BP 101/71; PULSE 83; RESP 18; TEMP 36.4; O2SAT 99
[2024-05-21 19:39] VITALS: BP 117/64; PULSE 111; RESP 16; TEMP 36.6; O2SAT 94
[2024-05-21] MEDS: TAMSULOSIN HCL 0.4 MG CAPSULE PO (20:25)
[2024-05-21] MEDS: LATANOPROST 0.005% OP SOLN 2.5 ML BTL 1 DROP RIGHT EYE (20:25)
[2024-05-21] MEDS: MAGNESIUM OXIDE 200 MG TABLET PO (20:25)
[2024-05-22 05:19] VITALS: BP 116/78; PULSE 89; RESP 16; TEMP 36.9; O2SAT 96
[2024-05-22] MEDS: BRIMONIDINE TARTRATE 0.2% OP SOLN 5 ML BTL 1 DROP EACH EYE (06:09)
[2024-05-22] MEDS: BRINZOLAMIDE 1% OPHTH SUSP 10 ML 1 DROP EACH EYE (06:09)
[2024-05-22 08:20] VITALS: PULSE 89; RESP 18; O2SAT 97
[2024-05-22] MEDS: BUDESONIDE INHALATION (08:20)
[2024-05-22] MEDS: FLUTICASONE/UMECLIDIN/VILANTER 100-62.5-25 MCG ELLIPTA 1 PUFF INHALATION (08:20)
[2024-05-22] MEDS: FORMOTEROL INHALATION (08:20)
[2024-05-22] MEDS: GLYCOPYRROLATE INHALATION (08:20)
--- NOTE | 2024-05-22 08:20 | P.PNIM_ITS ---
Progress Note: A&P Assessment and Plan (1) Shock: Code(s): R57.9 - Shock, unspecified Status: Resolved (2) SBO (small bowel obstruction): Code(s): K56.609 - Unspecified intestinal obstruction, unspecified as to partial versus complete obstruction Status: Acute (3) Incarcerated left inguinal hernia: Code(s): K40.30 - Unilateral inguinal hernia, with obstruction, without gangrene, not specified as recurrent Status: Acute Plan (1) Shock: Code(s): R57.9 - Shock, unspecified Status: Resolved Assessment and Plan: S/p IVF and pressors Completed Cefepime, Flagyl and p.o. Vancomycin Blood cultures negative Resolved Patient is afebrile, blood pressure stable (2) C. difficile colitis: Code(s): A04.72 - Enterocolitis due to Clostridium difficile, not specified as recurrent Status: Acute Assessment and Plan: Completed vancomycin Off FMS Diarrhea resolving (3) Hypokalemia: Code(s): E87.6 - Hypokalemia Status: Resolved Assessment and Plan: * Potassium 4.2 (4) SBO (small bowel obstruction): Code(s): K56.609 - Unspecified intestinal obstruction, unspecified as to partial versus complete obstruction Status: Acute Assessment and Plan: S/P open incarcerated left inguinal hernia repair with mesh, no bowel ischemia noted Patient tolerate solid diet well, denies abdomen pain nausea vomiting (5) Atrial fibrillation: Code(s): I48.91 - Unspecified atrial fibrillation Status: Acute Assessment and Plan: * Patient went into AFib 05/03. Rate controlled. * Echo showing EF 50-55%, abnormal diastolic fxn, possible PFO and mild valvular disease. * Cardiology following * Monitor on tele for now. * Eliquis 2.5mg bid (6) Incarcerated left inguinal hernia: Code(s): K40.30 - Unilateral inguinal hernia, with obstruction, without gangrene, not specified as recurrent Status: Acute Assessment and Plan: As above (7) Acute on chronic renal failure: Code(s): N17.9 - Acute kidney failure, unspecified; N18.9 - Chronic kidney disease, unspecified Status: Acute Assessment and Plan: * Creatinine 1.9, improving * Nephrology following * Avoid nephrotoxic medication or testing with IV contrast * Will remove beasley today (8) Obstructive uropathy: Code(s): N13.9 - Obstructive and reflux uropathy, unspecified Status: Acute Assessment and Plan: * CT Abd/Pelvis 05/02 shows multiple nonobstructing right renal stones, markedly enlarged left kidney with marked, severe chronic hydronephrosis and severe diffuse cortical thinning. There is a large, presumably chronically obstructing stone at the left renal pelvis region measuring 3.0 x 2.0 cm in size. Additional smaller nonobstructing left renal stones are also present. * Renal US showing chronic severe left hydronephrosis and severe left kidney atrophy * UA is not consistent with UTI. * Known finding per patient hx. 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 * [place] this is an incidental finding and not contributing to his current illness * Urology felt the right renal stones should be treated and will arrange for this as outpatient. 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, unspecified Status: Acute Assessment and Plan: * History of PFO * Continue Michelleztri (10) Scrotal edema: Code(s): N50.89 - Other specified disorders of the male genital organs Status: Acute Assessment and Plan: Reviewed scrotal ultrasound Lasix 40 mg p.o. for 6 days Appreciate surgery input Patient will follow-up with urologist outpatient Essential hypertension Blood pressure stable without hypertension medications Hold hypertension medications. May resume hypertension medication per primary care doctor evaluation in the office Plan Full code DVT prophylaxis on Sq Lovenox pt will discharge today with home health Subjective Date/time seen: 05/22/24 08:20 Interval history: Saw exam patient today. Patient denies abdomen pain, nausea vomiting. Patient tolerated diet well. Patient denies is growing pain . Patient is afebrile blood pressure stable, labs reviewed, kidney function stable, hemoglobin is trending up, 10.2 today Exam Narrative: General: In no acute distress, well nourished Head: atraumatic, no encephalopathy Eyes: PERRLA, sclera clear ENT: moist mucous membranes, nasal passages clear Neck: supple, no JVD, no adenopathy, trachea midline Cardiac: Irregular rhythm of Atrial Fibrillation. No murmur, gallops or friction rubs, peripheral pulses intact. Respiratory: Lungs clear to auscultation, no adventitious lung sounds, currently on room air Gastrointestinal: soft, non-distended, non-tender, normoactive bowel sounds. : voiding without difficulty per purewick.Scrotal edema that is subsiding Extremities: moves all extremities well, no edema, good ROM, strength 5/5 Skin: clean, dry, intact. Surgical dressing midline without shadowing. Neuro: Alert and oriented x4, cranial nerves intact, no neuro deficits. Psych: normal mood, normal affect, interactive Objective Data Vital Signs Vital Signs: Vital Signs - 24 hr 05/21/24 14:00 05/21/24 19:39 05/21/24 20:00 Temperature 97.6 F 97.8 F Pulse Rate 83 111 H Respiratory Rate 18 16 Blood Pressure 101/71 117/64 Pulse Oximetry 99 94 Oxygen Delivery Room Air 05/22/24 05:19 Temperature 98.5 F Pulse Rate 89 Respiratory Rate 16 Blood Pressure 116/78 Pulse Oximetry 96 Oxygen Delivery Intake/Output Intake/Output: Intake & Output 05/19/24 05/20/24 05/21/24 05/22/24 23:59 23:59 23:59 23:59 Intake Total 820 094 883 5572 Output Total 1000 1300 1300 1050 Balance -180 -510 -580 400 Meds/Results Medications: Active Medications Generic Name Dose Route Start Last Admin Trade Name Freq PRN Reason Stop Dose Admin Acetaminophen 650 mg 05/09/24 11:59 05/20/24 13:51 Acetaminophen 325 Mg Tablet BY MOUTH 650 mg Q6H PRN Administration Mild Pain (1-3) or Fever Artificial Tears 1 drop 05/07/24 18:00 05/21/24 17:11 Artificial Tears Ophth Soln 15 Ml Bottle EACH EYE 1 drop TID EVER Administration Ascorbic Acid 1,000 mg 05/07/24 09:00 05/21/24 09:45 Ascorbic Acid 500 Mg Tablet PO 1,000 mg DAILY EVER Administration Atorvastatin Calcium 40 mg 05/07/24 09:00 05/21/24 09:44 Atorvastatin 40 Mg Tablet PO 40 mg QAM EVER Administration Brimonidine Tartrate 1 drop 05/02/24 14:00 05/22/24 06:09 Brimonidine Tartrate 0.2% Op Soln 5 Ml Btl EACH EYE 1 drop Q8HR EVER Administration Brinzolamide 1 drop 05/02/24 14:00 05/22/24 06:09 Brinzolamide 1% Ophth Susp 10 Ml EACH EYE 1 drop Q8HR EVER Administration Cyanocobalamin 1,000 mcg 05/07/24 09:00 05/21/24 09:44 Cyanocobalamin 1,000 Mcg Tablet PO 1,000 mcg DAILY EVER Administration Fluticasone Propionate 1 spray 05/06/24 17:24 Fluticasone Propionate 0.05% Na Spr 16 Gm Btl (*Bkc) NASAL HS PRN nasal congestion Fluticasone/Umeclidinium/Vilanterol 1 puff 05/11/24 08:00 05/21/24 07:15 Fluticasone/Umeclidin/Vilanter 100-62.5-25 Mcg Ellipta INHALATION 1 puff DAILYRT EVER Administration Folic Acid 0.8 mg 05/07/24 09:00 05/21/24 09:45 Folic Acid 0.4 Mg Tablet PO 0.8 mg QAM EVER Administration Heparin Sodium (Porcine) 5,000 units 05/08/24 12:35 05/21/24 20:40 Heparin Sodium 5,000 Units/Ml Vial SUB-Q 5,000 units Q12HR EVER Administration Latanoprost 1 drop 05/02/24 21:00 05/21/24 20:25 Latanoprost 0.005% Op Soln 2.5 Ml Btl RIGHT EYE 1 drop HS EVER Administration Magnesium Oxide 200 mg 05/06/24 21:00 05/21/24 20:25 Magnesium Oxide 200 Mg Tablet PO 200 mg HS EVER Administration Naloxone HCl 0.1 mg 05/03/24 14:22 Naloxone Hcl 0.4 Mg/Ml Vial IV PUSH Q2M PRN Opiate Reversal * Home Med * ( 2 each 05/15/24 20:00 05/21/24 21:19 Breztri Aerosphere) INHALATION 06/05/24 19:59 Not Given Budes/Glycopyr/ Q12HRT EVER Formot 160 Mcg-9 Mcg -4.8 Mcg Ondansetron HCl 4 mg 05/02/24 10:09 05/02/24 16:02 Ondansetron Inj 4 Mg/2 Ml Vial IV PUSH 4 mg Q6H PRN Administration Nausea And Vomiting Pantoprazole Sodium 40 mg 05/09/24 09:00 05/21/24 09:45 Pantoprazole 40 Mg Tablet PO 40 mg QAM EVER Administration Sodium Chloride 20 ml 05/03/24 05:52 Central Line Flush IV PUSH PRN PRN after blood draws Tamsulosin HCl 0.4 mg 05/06/24 21:00 05/21/24 20:25 Tamsulosin Hcl 0.4 Mg Capsule PO 0.4 mg QHS EVER Administration Radiology Results: ITS Impressions Abdomen X-Ray 05/02/24 06:01 Impression: NG tube in satisfactory position. Suspected small bowel obstruction. Renal Ultrasound 05/02/24 15:30 IMPRESSION: 1. Chronic severe left hydronephrosis. Severe left kidney atrophy. 2. Nonobstructing right kidney stone. Abdomen/Pelvis CT 05/02/24 18:09 IMPRESSION: 1. Small bowel obstruction secondary to a left inguinal hernia containing small bowel. 2. Small volume of ascites. 3. Moderate-sized sliding hiatal hernia. 4. Left kidney stones including a stone in the renal pelvis with chronic severe hydronephrosis and severe kidney atrophy. 5. Nonobstructing right kidney stones. Chest X-Ray 05/13/24 07:56 Impression: Minimal pleural effusions. Probable minimal bibasilar pulmonary edema/atelectasis, especially left lung base. Correlate clinically for pneumonia. Scrotum Ultrasound 05/16/24 15:01 IMPRESSION: 1. Bilateral scrotal edema and moderate bilateral hydroceles. Normal testes and epididymides.
[2024-05-22 09:38] LABS: Hematocrit 32.5 % (42.0-52.0); Hemoglobin 10.2 g/dL (14.0-18.0); Mean Corpuscular HGB Conc 31.4 g/dl (32-36); Mean Corpuscular Hemoglobin 27.5 pg (26-34); Mean Corpuscular Volume 87.6 fl (80-100); Mean Platelet Volume 11.5 fl (7.4-10.4); Platelet Count Result 155 k/mm3 (150-375); Red Blood Count 3.71 M/mm3 (4.6-6.20); White Blood Count 4.2 K/mm3 (4.5-10.0)
[2024-05-22 09:53] LABS: Anion Gap 5 mmol/L (4-12); Blood Urea Nitrogen 30 mg/dL (9-20); Carbon Dioxide 25 mmol/L (22-30); Chloride 104 mmol/L (98-107); Estimated CRCL calculation 28 ml/min; Estimated Glomerular Filt Rate 34; Glucose 106 mg/dL (65-110); Potassium 3.9 mmol/L (3.4-5.0); Sodium 134 mmol/L (137-145)
[2024-05-22] MEDS: ASCORBIC ACID 500 MG TABLET 1000 MG PO (10:03)
[2024-05-22] MEDS: HEPARIN SODIUM 5,000 UNITS/ML VIAL 5000 UNITS SUB-Q (10:03)
[2024-05-22] MEDS: CYANOCOBALAMIN 1,000 MCG TABLET 1000 MCG PO (10:03)
[2024-05-22] MEDS: PANTOPRAZOLE 40 MG TABLET PO (10:03)
[2024-05-22] MEDS: FOLIC ACID 0.4 MG TABLET 0.8 MG PO (10:03)
[2024-05-22] MEDS: ATORVASTATIN 40 MG TABLET PO (10:03)
[2024-05-22] MEDS: ARTIFICIAL TEARS OPHTH SOLN 15 ML BOTTLE 1 DROP EACH EYE (10:07)
--- NOTE | 2024-05-22 13:29 | P.DS_ITS ---
DS: Admitting Diagnosis Discharge Date 05/22/24 Admitting Diagnosis (1) Shock: Code(s): R57.9 - Shock, unspecified Status: Resolved (2) SBO (small bowel obstruction): Code(s): K56.609 - Unspecified intestinal obstruction, unspecified as to partial versus complete obstruction Status: Acute (3) Incarcerated left inguinal hernia: Code(s): K40.30 - Unilateral inguinal hernia, with obstruction, without gangrene, not specified as recurrent Status: Acute DS: Discharge Diagnosis Discharge Diagnosis (1) Shock: Code(s): R57.9 - Shock, unspecified Status: Resolved (2) SBO (small bowel obstruction): Code(s): K56.609 - Unspecified intestinal obstruction, unspecified as to partial versus complete obstruction Status: Acute (3) Incarcerated left inguinal hernia: Code(s): K40.30 - Unilateral inguinal hernia, with obstruction, without gangrene, not specified as recurrent Status: Acute DS: Summary Hospital Course Hospital Course: 83yo male with CKD, RA, psoriasis and BPH here for abdominal pain. Patient has hx of right hernia repair in 2006. He was loading firewood about 1 month ago and felt a bulge tot he left groin. Over the past 2-3 days, he has had lower abdominal pain worse with bending over. He also noted increasing abdominal distention. Soft BMs with melana or hematochezia. Last BM was the day before admission. Not passing flatus. He developed nausea and vomiting that persisted. He denies hematemesis. No fevers but had chills in the ED. No urinary symptoms. No CP or SOB. He presented tot ED for evaluation. In the ED, patient was transiently bradycardic at 47 but this resolved and was tachypneic. No fevers or hypoxia. BP was normal initially. CBC was normal. He has metabolic gap acidosis with lactic acid level of 4.8. He has DANISHA with Cr 2.5 (baseline 1.5-1.7). Lipase and LFTs were normal. UA was not consistent with UTI. CXR with discoid atelectasis and cardiomegaly. CT Abd/Pelvis with contrast showing SBO with transition point related to the left inguinal hernia that contains loop of small bowel and ascitic fluid. Also noted was severe chronic obstructive uropathy of the left kidney with enlargement of the left kidney, severe hydronephrosis and severe diffuse cortical thinning; additional bilateral nonobstructing renal stones; small amount of ascites. EKG showing sinus rhythm with PACs and LAFB. NG tube placed with 1500mL drainage of fecal/gastric contents. Patient was given 3 L fluid resuscitation while awaiting CT scan which confirmed a SBO due to a left inguinal hernia. Left inguinal hernia was reducible but would quickly bulge back out. Despite fluid resuscitation the patient became hypotensive. Left subclavian line was placed and the patient was started on norepinephrine and maintenance fluids. Patient started on cefepime and Flagyl due to penicillin allergy. General Surgery was consulted. Repeat Lactic normal. The following med issues have been addressed during hospitalization Shock: Code(s): R57.9 - Shock, unspecified Status: Resolved Assessment and Plan: S/p IVF and pressors Completed Cefepime, Flagyl and p.o. Vancomycin Blood cultures negative Resolved Patient is afebrile, blood pressure stable (2) C. difficile colitis: Code(s): A04.72 - Enterocolitis due to Clostridium difficile, not specified as recurrent Status: Acute Assessment and Plan: Completed vancomycin Off FMS Diarrhea resolving (3) Hypokalemia: Code(s): E87.6 - Hypokalemia Status: Resolved Assessment and Plan: * Potassium 4.2 Corrected (4) SBO (small bowel obstruction): Code(s): K56.609 - Unspecified intestinal obstruction, unspecified as to partial versus complete obstruction Status: Acute Assessment and Plan: S/P open incarcerated left inguinal hernia repair with mesh, no bowel ischemia noted Patient tolerate solid diet well, denies abdomen pain nausea vomiting (5) Atrial fibrillation: Code(s): I48.91 - Unspecified atrial fibrillation Status: Acute Assessment and Plan: * Patient went into AFib 05/03. Rate controlled. * Echo showing EF 50-55%, abnormal diastolic fxn, possible PFO and mild valvular disease. * Cardiology following * Monitor on tele for now. * Eliquis 2.5mg bid (6) Incarcerated left inguinal hernia: Code(s): K40.30 - Unilateral inguinal hernia, with obstruction, without gangrene, not specified as recurrent Status: Acute Assessment and Plan: As above (7) Acute on chronic renal failure: Code(s): N17.9 - Acute kidney failure, unspecified; N18.9 - Chronic kidney disease, unspecified Status: Acute Assessment and Plan: * Creatinine 1.9, improving * Nephrology following * Avoid nephrotoxic medication or testing with IV contrast * Will remove beasley today (8) Obstructive uropathy: Code(s): N13.9 - Obstructive and reflux uropathy, unspecified Status: Acute Assessment and Plan: * CT Abd/Pelvis 05/02 shows multiple nonobstructing right renal stones, markedly enlarged left kidney with marked, severe chronic hydronephrosis and severe dif fuse cortical thinning. There is a large, presumably chronically obstructing stone at the left renal pelvis region measuring 3.0 x 2.0 cm in size. Additional smaller nonobstructing left renal stones are also present. * Renal US showing chronic severe left hydronephrosis and severe left kidney atrophy * UA is not consistent with UTI. * Known finding per patient hx. 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 * [place] this is an incidental finding and not contributing to his current illness * Urology felt the right renal stones should be treated and will arrange for this as outpatient. 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 for 6 days Appreciate surgery input Patient will follow-up with urologist outpatient Essential hypertension Blood pressure stable without hypertension medications Hold hypertension medications. May resume hypertension medication per primary care doctor evaluation in the office Plan Full code DVT prophylaxis on Sq Lovenox pt will discharge today with home health Time Spent with Patient Time attestation: Total time spent providing and/or coordinating discharge services: Exam Narrative: General: In no acute distress, well nourished Head: atraumatic, no encephalopathy Eyes: PERRLA, sclera clear ENT: moist mucous membranes, nasal passages clear Neck: supple, no JVD, no adenopathy, trachea midline Cardiac: Irregular rhythm of Atrial Fibrillation. No murmur, gallops or friction rubs, peripheral pulses intact. Respiratory: Lungs clear to auscultation, no adventitious lung sounds, currently on room air Gastrointestinal: soft, non-distended, non-tender, normoactive bowel sounds. : voiding without difficulty per purewick.Scrotal edema that is subsiding Extremities: moves all extremities well, no edema, good ROM, strength 5/5 Skin: clean, dry, intact. Surgical dressing midline without shadowing. Neuro: Alert and oriented x4, cranial nerves intact, no neuro deficits. Psych: normal mood, normal affect, interactive DS: Data Data Completed and Pending Completed studies during hospitalization: Pending at discharge 05/03/24 11:40 Surgical [PTH] Routine Labs on day of discharge: Labs from last 24 hours 05/22/24 08:47 WBC 4.2 L RBC 3.71 L Hgb 10.2 L Hct 32.5 L MCV 87.6 MCH 27.5 MCHC 31.4 L RDW 15.0 H Plt Count 155 MPV 11.5 H Sodium 134 L Potassium 3.9 Chloride 104 Carbon Dioxide 25 Anion Gap 5 BUN 30 H Creatinine 1.91 H Estim Creat Clear Calc 28 Estimated GFR 34 L Glucose 106 Calcium 9.0 Discharge Plan Discharge Attending physician on discharge: Jp Squires Consulting providers: Ricky Guaman; Salvador Weiss; Lambert Carrasco; Ronnie Greene; Marilu Paul; Leny Grady; Frieda Sultana; Delta Tan Discharging Clinician: Jp Squires Anticipated Discharge Date/Time: 05/17/24 09:02 Patient Disposition: Home Health Service Activity: as tolerated Diet: as tolerated and heart healthy Discharge Instructions: Care Coordination: Patient to have [facility] for PT/OT eval and treat, and alf. They can be reached at [phone] if you have any questions; they will contact you to schedule their first visit. DISCHARGE INSTRUCTION SHEET FOR HERNIA, GALLBLADDER AND APPENDIX SURGERIES DR. WEISS 1. May shower, no soaking in bath x 2weeks. 2. Call office for: * Wound increasingly painful or bleeding * Vomiting * Fever of greater than 101 degrees 3. If no bowel movement for three days, take 1 oz. (30 ml) Milk of Magnesia or MiraLax 17g 1 to 2 times daily. 4. No heavy lifting > 10-15 pounds x 6 weeks for hernia repairs 5. No driving for 3 days or while taking narcotic pain medications. 6. Ice to surgical site for 48 hours (30 min on, then 30 min off). 7. Up walking 10-30 minutes three times per day. 8. Resume previous home medications. 9. Follow-up with Dr. Weiss in 2 weeks. Call to schedule an appointment. [phone]) 10. Oral pain medications prescription to be sent to pharmacy. Take Tylenol 500mg every 6 hours and Ibuprofen 600mg every 6 hours for the first 2 days, then as needed. 11. NUTRITION: Start out by drinking fluids and increase your diet as tolerated. If you experience nausea, try dry toast, crackers, and 7-UP. If nausea or vomiting persists, contact your surgeon?s office. 12. Gallbladders-Low Fat Diet for 2 weeks (send care note of low fat diet) 13. Inguinal Hernias-wear scrotal support for 48 hours Patient Instructions: Antibiotic Form, Removal of a Central Line, PICC, or Midline Catheter (DC) Patient Language: [place]ralt[place] Stand Alone Forms: General Discharge Information Follow-up/Referrals: Delta Tan MD [Physician] - (Patient needs to see urologist at scheduled appointment) Lambert Carrasco MD [Physician] - 3 Weeks (Establish with outpatient urology to discuss treatment options for right kidney stones) Salvador Weiss DO [Physician] - 2 Weeks Discharge Medications: Continued coQ10 (ubiquinol) [Qunol Silas CoQ10] 100 mg capsule 200 mg PO HS ferrous sulfate [Feosol] 325 mg (65 mg iron) tablet 325 mg PO DAILY magnesium 200 mg tablet 25 mg PO HS latanoprost 0.005 % Drops 1 drp RIGHT EYE HS ascorbic acid (vitamin C) [Vitamin C] 1,000 mg Tablet 1 g PO DAILY aspirin [Remi Low Dose Aspirin] 81 mg Tablet,Delayed Release (Dr/Ec) 81 mg PO HS vitamin E 400 unit Tablet 450 mg PO DAILY Simbrinza 1-0.2 % Drops,Suspension 1 drp EACH EYE TID folic acid 800 mcg tablet 1 mg PO QAM cyanocobalamin (vitamin B-12) 500 mcg Tablet 1,000 mcg PO DAILY multivit with min-folic acid 0.4 mg Tablet 1 tablet PO DAILY carboxymethylcellulose sodium 0.5 % dropperette 1 drp EACH EYE TID albuterol sulfate 90 mcg/actuation HFA aerosol inhaler 2 puff INHALATION .q6hr PRN (Reason: wheezing) Nikolei Aerosphere 160-9-4.8 mcg/actuation HFA aerosol inhaler 2 inh INHALATION BID tamsulosin 0.4 mg capsule 0.4 mg PO QHS fluticasone propionate [24 Hour Allergy Relief] 50 mcg/actuation spray,suspension 1 spray intranasal HS PRN (Reason: nasal congestion) Rx Instructions: administer into each nostril [facility] Vitamin-Mineral 250-90-10-1 mg capsule 1 cap PO QAM AND QHS omeprazole 20 mg tablet,delayed release (DR/EC) 20 mg PO BID Qty: 180 2RF diazepam 2 mg tablet 2 mg PO BID Qty: 60 0RF atorvastatin 40 mg tablet 40 mg PO QAM Qty: 90 1RF Discontinued amlodipine 10 mg tablet 5 mg PO DAILY meclizine 25 mg tablet 25 mg PO QID PRN (Reason: dizziness) apple cider vinegar 250 mg tablet,chewable 250 mg PO HS atenolol 50 mg tablet 50 mg PO QAM Qty: 90 1RF Date of admission: 05/02/24 05:56 Primary Care Provider: Benedicto Westbrook Admitting Provider: Celeste Delvalle Attending physician on admission: Nery Whaley Condition: Stable
[2024-05-22 14:00] VITALS: BP 117/68; PULSE 88; RESP 20; TEMP 36.5; O2SAT 100
--- NOTE | 2024-05-22 16:49 | PC.NURSE ---
RN spoke with spouse Saundra in regards to patient's discharge. Saundra stated she will be here in 30 minutes to transport patient home.
== END 2024-05-22 17:10 | disposition home health service (06) | DRG 853 ==
LOC: ANHED 05:55 → ANHICU 06:38 → ANHIMU 05-07 13:55 → ANH3MEDSUR 05-08 15:31
PROVIDERS: General Practice; Internal Medicine; Internal Medicine Nephrology; Physician Assistant; Surgery; Admitting Provider Internal Medicine; Emergency Provider Emergency Medicine; PCP Family Medicine Adolescent Medicine; Visit Provider Hospitalist
PROC: 0YU60JZ Supplement Left Inguinal Region with Synthetic Substitute, Open Approach (ICD-10-PCS; principal; 2024-05-03 10:30)
DX: A41.9 Sepsis, unspecified organism (principal); R65.21 Severe sepsis with septic shock; K40.30 Unilateral inguinal hernia, with obstruction, without gangrene, not specified as recurrent; N17.9 Acute kidney failure, unspecified; A04.72 Enterocolitis due to Clostridium difficile, not specified as recurrent; E87.0 Hyperosmolality and hypernatremia; N13.2 Hydronephrosis with renal and ureteral calculous obstruction; N40.0 Benign prostatic hyperplasia without lower urinary tract symptoms; L40.9 Psoriasis, unspecified; N13.9 Obstructive and reflux uropathy, unspecified; M06.9 Rheumatoid arthritis, unspecified; I12.9 Hypertensive chronic kidney disease with stage 1 through stage 4 chronic kidney disease, or unspecified chronic kidney disease; N18.9 Chronic kidney disease, unspecified; I48.91 Unspecified atrial fibrillation; H40.9 Unspecified glaucoma; E86.0 Dehydration; E87.6 Hypokalemia; D69.6 Thrombocytopenia, unspecified; I25.10 Atherosclerotic heart disease of native coronary artery without angina pectoris; N50.89 Other specified disorders of the male genital organs; L40.50 Arthropathic psoriasis, unspecified; E78.5 Hyperlipidemia, unspecified; Z96.1 Presence of intraocular lens; Z98.42 Cataract extraction status, left eye; Z98.41 Cataract extraction status, right eye; Z89.421 Acquired absence of other right toe(s); Z79.82 Long term (current) use of aspirin
CPT/HCPCS: 36415; 36430; 36600; 71045; 74176; 74177; 76775; 76870; 80048; 80053; 80069; 80202; 81001; 82274; 82436; 82550; 82570; 82805; 82948; 83605; 83690; 83735; 84100; 84133; 84300; 84443; 85018; 85025; 85027; 85055; 85610; 85730; 85999; 86140; 86850; 86900; 86901; 87040; 87493; 87641; 88302; 93005; 93306; 93976; 94640; 96365; 96367; 96375; 97110; 97116; 97161; 97165; 97530; 97535; 99285; A9270; C1751; C1781; J0330; J0692; J1644; J1720; J1836; J1940; J2405; J2470; J3010; J3370; J3430; J3480; J7030; J7040; J7050; J7070; P9017; P9041; P9047; Q9967

== ENCOUNTER 2024-06-03 10:16 | Outpatient (NON) | payer MEDICARE, SELFPAY ==
[2024-06-03 12:14] LABS: Alanine Aminotransferase 29 U/L (6-50); Albumin Level 3.4 g/dL (3.5-5.1); Alkaline Phosphatase 76 U/L (38-126); Anion Gap 12 mmol/L (4-12); Aspartate Amino Transferase 24 U/L (17-59); Bilirubin,Total 0.7 mg/dL (0.2-1.3); Blood Urea Nitrogen 23 mg/dL (9-20); Calcium 8.7 mg/dL (8.4-10.2); Carbon Dioxide 21 mmol/L (22-30); Chloride 105 mmol/L (98-107); Estimated Glomerular Filt Rate 37; Glucose 112 mg/dL (65-110); Potassium 3.7 mmol/L (3.4-5.0); Sodium 138 mmol/L (137-145)
--- OUTSIDE RECORDS SUMMARY | 2024-06-05 17:19 | XMS_ITS | Clinical Summary ---
Author Organization [facility] Address [address] [address] Phone Care Team Providers Care [employer] Name Role Phone Benedicto Schneider MD Primary Care Provider [phone] Allergies Active Allergy Reactions Criticality Noted Date Comments Penicillins Rash Medium 03/27/2019 Medications Medication Sig Dispensed Refills Start Date End Date Status Ascorbic Acid (VITAMIN C) 1000 MG tablet Take 1,000 mg by mouth daily Active aspirin EC 81 MG EC tablet Take 81 mg by mouth daily 08/27/2017 Active atorvastatin (LIPITOR) 40 MG tablet Take 40 mg by mouth daily Active Brinzolamide-Brimonid ine 1-0.2 % suspension Administer 1 drop into affected eye(s) 3 times daily Active Carboxymethylcellulos e Sod PF (REFRESH PLUS) 0.5 % solution 1 drop Acti ve cyanocobalamin (V-R VITAMIN B-12) 500 MCG tablet Take 500 mcg by mouth daily Active folic acid (FOLVITE) 1 MG tablet Take 1 mg by mouth daily Active ipratropium (ATROVENT) 0.06 % nasal spray Administer 2 sprays into affected nostril(s) 2 times daily Active Multiple Vitamin (MULTIVITAMIN) capsule Take 1 capsule by mouth daily Active hxpbawty-xxuzkifsi-je xamethasone (MAXITROL) 3.5-62169-2.1 ophthalmic suspension 1 drop daily A ctive potassium chloride (KLOR-CON) 20 MEQ packet Take 20 mEq by mouth 2 times daily Active tamsulosin (FLOMAX) 0.4 MG 24 hr capsule 0.4 mg Acti ve tiotropium-olodaterol (STIOLTO RESPIMAT) 2.5-2.5 MCG/ACT aerosol solution inhaler Inhale 1 puff daily Activ e hydroCHLOROthiazide (HYDRODIURIL) 12.5 MG tablet Take 1 tablet by mouth daily Active latanoprost (XALATAN) 0.005 % ophthalmic solution 09/19/2019 Active omeprazole (PriLOSEC) [address] capsule 07/25/2019 Active predniSONE (DELTASONE) 10 MG tablet 08/07/2019 Active timolol (Betimol) 0.5 % ophthalmic solution Administer into affected eye(s) every 12 hours Active valsartan (DIOVAN) 80 MG tablet Take 1 tablet by mouth daily Active furosemide (LASIX) 20 MG tablet Take 20 mg by mouth Activ e HYDROcodone-acetamino phen (NORCO) 7.5-325 MG per tablet 08/05/2020 Active Xarelto 10 MG tablet Take 10 mg by mouth 1 (one) time each day 08/05/2020 Active atenolol (TENORMIN) 50 MG tablet Take 50 mg by mouth 1 (one) time each day 02/16/2021 Active Trelegy Ellipta 100-62.5-25 MCG/INH aerosol powder INHALE 1 PUFF BY MOUTH EVERY DAY 10/31/2021 Active silver sulfADIAZINE (SILVADENE) 1 % cream 04/10/2022 Act karin Active Problems Problem Noted Date Diagnosed Date Dyspnea on exertion 09/26/2021 Aneurysm of thoracic aorta 08/27/2017 Overview (03/27/2019): Last Assessment & Plan: Patient has been receiving CT scans of the chest for the last several years and the ascending aortic aneurysm size is stable. Refer this year I will skip a CT scan and reassess next year if we need to repeat a CT scan or MRI of the chest. Chest pain 07/23/2017 Overview (03/27/2019): Last Assessment & Plan: Cardiac catheterization shows no occlusive coronary artery disease therefore continue medical management. Unilateral recurrent inguinal hernia 05/02/2017 Hyperlipidemia 09/27/2013 Overview (03/27/2019): Hyperlipidemia Last Assessment & Plan: Continue Lipitor. Rheumatoid arthritis 09/27/2013 Overview (03/27/2019): RA (rheumatoid arthritis) Calculus of kidney 07/29/2012 Overview (03/27/2019): Renal stones Gastroesophageal reflux disease 07/29/2012 Overview (03/27/2019): GERD (gastroesophageal reflux disease) Hypertension 07/29/2012 Overview (03/27/2019): Hypertension Last Assessment & Plan: Blood pressure is well controlled. Continue current treatment Interstitial pneumonia 07/29/2012 Overview (03/27/2019): Lung granuloma Chronic kidney disease Immunizations Name Administration Dates Next Due Sars-cov-2, Unspecified 08/26/2020 Family History Medical History Relation Comments Kidney disease Neg Hx Nephrolithiasis Neg Hx Social History Tobacco Use Types Packs/Day Years Used Date Smoking Tobacco: Never Smokeless Tobacco: Never Tobacco Cessation:Counseling Given: Not Answered Alcohol Use Standard Drinks/Week Comments Never 0 (1 standard drink = 0.6 oz pur e alcohol) AUDIT-C Answer Date Recorded Frequency of Alcohol Consumption Never 03/27/2019 Average Number of Drinks Not on file 019 Frequency of Binge Drinking Not on file 03/14 Sex and Gender Information Value Date Recorded Sex Assigned at Not on file Gender Identity Not on file Sexual Orientation Not on file Last Filed Vital Signs Vital Sign Reading Time Taken Comments Blood Pressure 130/72 04/26/2022 9:05 AM SADDLE [employer]ITCHER Pulse - - Temperature 36.4 ??C (97.6 ??F) 04/26/2022 9:05 AM CS T Respiratory Rate 18 04/26/2022 9:05 AM SADDLE STITCHER Oxygen Saturation - - Inhaled Oxygen Concentration - - Weight 89.8 kg (198 lb) 04/26/2022 9:05 AM SADDLE STITCHER Height 177.8 cm (5' 10 ) 04/26/2022 9:05 AM SADDLE STITCHER Body Mass Index 28.41 04/26/2022 9:05 AM SADDLE STITCHER Plan of Treatment Health Maintenance Due Date Last Done Comments Pneumococcal PPSV23/PCV13 65 + Years / High and Highest Risk (1 of 4 - PCV) 1946 Influenza Vaccine (#1) 2024 Care Teams [employer] Relationship Specialty Start Date End Date Benedicto Schneider MD [address] [id number] PCP - General Family Medicine 03/10/19
--- OUTSIDE RECORDS SUMMARY | 2024-06-05 17:19 | XMS_ITS | Clinical Summary ---
Author Organization [facility] Address [address] [place] [address] [place] [address] Care Team Providers Care Medical Office Assistant Name Role Phone Benedicto Westbrook MD Primary Care Provider [phone] Allergies Active Allergy Reactions Criticality Noted Date Comments Penicillins Rash Medium 03/27/2019 Medications atorvastatin (LIPITOR) 40 MG tablet Take 1 tablet (40 mg total) by mouth every morning. Active SIMBRINZA 1-0.2 % ophthalmic suspension INSTILL 1 DROP INTO BOTH EYES THREE TIMES DAILY DIRECTED Active ferrous sulfate, 65 mg elemental, 325 (65 FE) MG tablet Take 1 tablet (325 mg total) by mouth. Active atenolol (TENORMIN) 50 MG tablet Take 1 tablet (50 mg total) by mouth every morning. Active folic acid (FOLVITE) 1 MG tablet Take 1 tablet (1 mg total) by mouth daily. Active omeprazole (PRILOSEC) 20 MG capsule Take 1 capsule (20 mg total) by mouth 2 (two) times daily. 4 Active Vitamin E (VITAMIN E/D-ALPHA NATURAL) 268 MG (400 UNIT) Cap Take 400 Units by mouth daily. Active fluticasone propionate (FLONASE) 50 MCG/ACT nasal sprayIndications :Allergic rhinitis due to pollen, unspecified seasonality 1 spray by Nasal route daily. 16 g 6 4 Active amLODIPine (NORVASC) 5 MG tablet Take 2 tablets (10 mg total) by mouth daily. Active furosemide (LASIX) 20 MG tablet Take 1 tablet (20 mg total) by mouth. Active hydroCHLOROthiaz meredith (MICROZIDE) 12.5 MG tablet Take 1 tablet (12.5 mg total) by mouth daily. Active valsartan (DIOVAN) 80 MG tablet Take 1 tablet (80 mg total) by mouth daily. Active tamsulosin (FLOMAX) 0.4 MG Cap Take 1 capsule (0.4 mg total) by mouth daily. Active rivaroxaban (XARELTO) 10 MG Tab tablet Take 1 tablet every day by oral route. Active vitamin B-12 (CYANOCOBALAMIN) 500 MCG tablet Take 1 tablet (500 mcg total) by mouth daily. Active Coenzyme Q10 10 MG capsule Take 10 mg by mouth daily. Active Ascorbic Acid 1000 MG Tab Take 1,000 mg by mouth daily. Active Multiple Vitamin (MULTIVITAMIN) capsule Take 1 capsule by mouth daily. Active Multiple Vitamin (MULTIVITAMIN) capsule Take 1 capsule by mouth daily. Active potassium chloride (KLOR-CON) 20 MEQ packet Take 1 packet by mouth. Active ipratropium (ATROVENT) 0.06 % nasal spray 2 sprays by Each Nostril route 2 (two) times daily. Active albuterol sulfate HFA 108 (90 Base) MCG/ACT inhalerIndicatio ns:Obstructive lung disease ([facility]) Inhale 2 puffs into the lungs every 6 (six) hours as needed for Wheezing. 6.7 g 6 4 Active budesonide-glyco pyrrolate-formot genny (BREZTRI AEROSPHERE) 160-9-4.8 MCG/ACT inhalerIndicatio ns:ILD (interstitial lung disease) ([facility]),Obstruc tive lung disease ([facility]) Inhale 2 puffs into the lungs 2 (two) times a day. Rinse and spit after each use 10.7 g 6 4 Active Active Problems Problem Noted Date Diagnosed Date Chronic kidney disease 02/26/2024 Acute osteomyelitis of phalanx of foot ([facility]) 03/12/2023 Arthralgia of left knee 08/07/2022 Coronary artery disease invo lving campo coronary artery of campo heart without angina pectoris 05/29/2022 Pain in right foot 04/09/2022 Ulcer of toe ([facility]) 04/09/2022 Cellulitis of toe of right foot 04/09/2022 Dyspnea on exertion 09/26/2021 Osteoarthritis of left hip 08/09/2021 Aneurysm of thoracic aorta 08/27/2017 Overview (02/26/2024): Last Assessment & Plan: Patient has been receiving CT scans of the chest for the last several years and the ascending aortic aneurysm size is stable. Refer this year I will skip a CT scan and reassess next year if we need to repeat a CT scan or MRI of the chest. Chest pain 07/23/2017 Overview (02/26/2024): Last Assessment & Plan: Cardiac catheterization shows no occlusive coronary artery disease therefore continue medical management. Unilateral recurrent inguinal hernia 05/02/2017 Rheumatoid arthritis ([facility]) 4 Overview (02/26/2024): RA (rheumatoid arthritis) Hyperlipidemia 09/27/2013 Overview (02/26/2024): Hyperlipidemia Last Assessment & Plan: Continue Lipitor. Gastroesophageal reflux disease 07/29/2012 Overview (02/26/2024): GERD (gastroesophageal reflux disease) Hypertension 07/29/2012 Overview (02/26/2024): Hypertension Last Assessment & Plan: Blood pressure is well controlled. Continue current treatment Interstitial pneumonia ([facility]) 013 Overview (02/26/2024): Lung granuloma Calculus of kidney 07/29/2012 Overview (02/26/2024): Renal stones Encounters Date Type Department Care Team Description 04/18/2024 Telephone [facility] - [address] [address] Allen Cline, Concerns from Last 3 Months Social History Tobacco Use Types Packs/Day Years Used Date Smoking Tobacco: Never Passive Smoke Exposure: Never Smokeless Tobacco: Never Tobacco Cessation:Counseling Given: Yes Alcohol Use Standard Drinks/Week Comments Never 0 (1 standard drink = 0.6 oz pur e alcohol) Sex and Gender Information Value Date Recorded Sex Assigned at Not on file Legal Sex Male 8:04 PM CDT Gender Identity Not on file Sexual Orientation Not on file Last Filed Vital Signs Vital Sign Reading Time Taken Comments Blood Pressure 134/75 02/26/2024 12:10 PM CDT Pulse 84 02/26/2024 11:47 AM CDT Temperature 36.6 ??C (97.9 ??F) 02/26/2024 1 1:47 AM CDT Respiratory Rate 18 02/26/2024 11:4 7 AM CDT Oxygen Saturation 98% 02/26/2024 11: 47 AM CDT Inhaled Oxygen Concentration - - Weight 85.3 kg (188 lb) 02/26/2024 11:4 7 AM CDT patient stated that he just weighed himself last night Height 177.8 cm (5' 10 ) 02/26/2024 11: 47 AM CDT Body Mass Index 26.98 02/26/2024 11:47 AM CDT Plan of Treatment Upcoming Encounters Date Type Department Care Team (Late st Contact Info) Description 07/07/2024 11:00 AM FULFILLMENT COORDINATOR Office Visit [facility] [address] [address] Allen Cline DO [address] [place] [address] [address] [place] [id number] Health Maintenance Due Date Last Done Comments ASCVD LDL 1942 PHQ-2 (Physician [place]) 1954 Zoster Vaccines (1 of 2) 1992 Annual Medicare Wellness Visit 2007 Pneumococcal Vaccine: 65+ Years (2 of 2 - PCV) 03/08/2023 03/08/2022 COVID-19 Vaccine ( season) 2024 09/06/2023, 03/02/2023, 09/08/2022, Additional history exists Influenza Adult (#1) 2024 DTaP, Tdap and Td Vaccines (2 - Td or Tdap) 03/08/2032 03/08/2022 RSV Immunization or 60+ Years Completed 02/16/2023 Meningococcal B Vaccine Aged Out No l onger eligible based on patient's age to complete this topic Meningococcal Vaccine Aged Out No golden erick eligible based on patient's age to complete this topic RSV Immunizations Under 20 Months Aged Out No longer eligible based on patient's age to complete this topic Insurance [employer] Care Teams Medical Office Assistant Relationship Specialty Start Date End Date Benedicto Westbrook MD [address] [address] PCP - General FAMILY PRACTICE 11/08/23
--- OUTSIDE RECORDS SUMMARY | 2024-06-05 17:19 | XMS_ITS | Clinical Summary ---
Author Organization [facility] [address] Address [address] [place] [address] Care Team Providers Care Candy Butcher Name Role Phone Benedicto Westbrook MD Primary Care Prov ider Allergies Active Allergy Reactions Criticality Noted Date Comments Penicillins Rash Medium 05/28/2023 Medications omeprazole 20 mg tablet,delayed release (DR/EC) Take by mouth 2 (two) times a day Active folic acid (FOLVITE) 1 mg tablet Take 1 tablet (1 mg total) by mouth daily 2 tablets in the AM Active tamsulosin (FLOMAX) 0.4 mg extended release capsule 1 capsule (0.4 mg total) Active neomycin-polymyx in-dexamethasone (MAXITROL) 3.5mg/mL-10,000 unit/mL-0.1 % ophthalmic suspension Administer 1 drop into the right eye daily Active carboxymethylcel lulose (REFRESH PLUS) 0.5 % dropperette 1 drop Active ascorbic acid (VITAMIN C) 1,000 mg tablet Take 1 tablet (1,000 mg total) by mouth daily Active CYANOCOBALAMIN, VITAMIN B-12, ORALIndications: Prevention of Vitamin B12 Deficiency Take 1,000 mcg by mouth daily Active multivitamin capsule Take 1 capsule by mouth daily Active vitamin E 400 unit capsule Take 1 capsule (400 Units total) by mouth daily Active aspirin 81 mg tabletIndication s:Stable angina pectoris (HCC) Take 1 tablet (81 mg total) by mouth daily. 30 tablet 11 8 Active atorvastatin (LIPITOR) 40 mg tablet Take 1 tablet (40 mg total) by mouth daily Active ipratropium (ATROVENT) 42 mcg (0.06 %) nasal spray Administer 2 sprays into each nostril 2 (two) times a day Active vit A/vit C/vit E/zinc/copper (PRESERVISION AREDS ORAL) Take by mouth. Act karin tiotropium-oloda teroL (STIOLTO) 2.5-2.5 mcg/actuation inhaler Inhale 1 puff daily Active atenoloL (TENORMIN) 50 mg tablet Take 1 tablet (50 mg total) by mouth daily Active brinzolamide-chon monidine (Simbrinza) 0.2-1 % drops,suspension Simbrinza 1 %-0.2 % eye drops,suspensio n INSTILL 1 DROP INTO BOTH EYES 3 TIMES A DAY Active Trelegy Ellipta 100-62.5-25 mcg inhaler 2 Active MAGNESIUM ORAL Take 25 mg by mouth with evening meal Active latanoprost (XALATAN) 0.005 % ophthalmic solution INSTILL 1 DROP INTO THE RIGHT EYE AT BEDTIME Active ferrous sulfate (iron) 325 mg (65 mg of elemental iron) tabletIndication s:Iron Deficiency Anemia Take 1 tablet (325 mg total) by mouth with evening meal Active coenzyme Q10 10 mg capsule Take 1 capsule (10 mg total) by mouth daily Active pectin/vit B6/mins 4/c.vinegar (CIDER [id number] N-MINCB4 ORAL) Take by mouth VINEGAR- 2 TABLETS IN THE PM DAILY Active amLODIPine (NORVASC) 10 mg tablet Take 1 tablet (10 mg total) by mouth daily 90 tablet 3 4 07/08/19 25 Active amLODIPine (NORVASC) 10 mg tablet Take 1 tablet (10 mg total) by mouth daily 90 tablet 3 4 Active Active Problems Problem Noted Date Diagnosed Date Coronary artery disease invo lving [place] coronary artery of [place] heart without angina pectoris 05/29/2022 NEW (dyspnea on exertion) 09/26/2021 Aneurysm of thoracic aorta 08/27/2017 Assessment & Plan (10/01/2017 11:39 AM CDT): Patient has been receiving CT scans of the chest for the last several years and the ascending aortic aneurysm size is stable. Refer this year I will skip a CT scan and reassess next year if we need to repeat a CT scan or MRI of the chest. Assessment & Plan (08/27/2017 12:20 PM CDT): Ascending aortic aneurysm 4.2 cm. Observe for now. Hyperlipidemia 09/27/2013 Overview (08/18/2016): Hyperlipidemia Assessment & Plan (10/01/2017 11:39 AM CDT): Continue Lipitor. Assessment & Plan (08/27/2017 12:20 PM CDT): Continue simvastatin. Next visit will check lipid panel Rheumatoid arthritis 09/27/2013 Overview (08/18/2016): RA (rheumatoid arthritis) Drug indicated 12/09/2012 Overview (08/17/2016): High risk medication use Hypertension 07/29/2012 Overview (08/17/2016): Hypertension Assessment & Plan (10/01/2017 11:39 AM CDT): Blood pressure is well controlled. Continue current treatment Assessment & Plan (08/27/2017 12:19 PM CDT): Blood pressure is well controlled. Continue current treatment Assessment & Plan (07/23/2017 11:24 AM CDT): Blood pressure reasonably controlled. 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 Assessment & Plan (08/27/2017 12:18 PM CDT): Discussed with patient benefits and risk of cardiac catheterization and he agrees to proceed. Continue aspirin 81 mg daily. Assessment & Plan (07/23/2017 11:24 AM CDT): Patient describes typical angina. Will start aspirin 81 mg daily. Continue simvastatin. I will order an echocardiogram to assess heart function. Discussed with patient option for stress test or heart catheterization. However at this time he wants to think about his options and does not want either of these tests. Advised if he gets chest pain that lasts for more than 10 min to report and call 911. Encounters Date Type Department Care Team Description 05/13/2024 Orders Only [facility] Cardiology [address] [place] [address] Myrna Osorio NP 05/08/2024 Orders Only [facility] Cardiology [address] [place] [address] Marilu Paul MD from Last 3 Months Surgical History Surgery Date Site/Laterality Comments OTHER SURGICAL HISTORY 05/14/1976 - 05/13/1977 renal stone extractions OTHER SURGICAL HISTORY 05/14/2009 - 05/13/2010 bilat rotator cuff repair REPLACEMENT TOTAL KNEE 05/14/2020 - 05/13/2021 Left TOE AMPUTATION CARDIAC CATHETERIZATION 06/27/2023 [facility]- [facility] Medical History Medical History Date Comments Hypertension Hypertension Cataracts, bilateral Glaucoma Emphysema of lung (HCC) Enlarged prostate Kidney stones Rheumatoid arthritis (HCC) Hyperlipidemia Ascending aortic aneurysm (HCC) Family History Medical History Relation Name Comments Stroke Father Stroke; Cause o f : Stroke Diabetes Mother Diabetes mellit us; Other Mother Unknown; Cause of : Unknown Coronary artery disease Other 1 Fami ly history of Coronary artery disease; Stroke Other 2 Family history of Stroke; Relation Name Status Comments Father (Age 63) Mother (Age 90) Other 1 Other 2 Social History Tobacco Use Types Packs/Day Years Used Date Smoking Tobacco: Never Smokeless Tobacco: Former Quit: 07/23/2014 Alcohol Use Standard Drinks/Week Comments No 0 (1 standard drink = 0.6 oz pur e alcohol) Personal Safety Answer Date Recorded Getting School Help Needed Not on file 05/15 Sex and Gender Information Value Date Recorded Sex Assigned at Not on file Legal Sex Male 1:59 AM MOLDING ENGINEER Gender Identity Not on file Sexual Orientation Not on file Obstetrics History Last Filed Vital Signs Vital Sign Reading Time Taken Comments Blood Pressure 130/80 07/09/2023 11:51 AM MOLDING ENGINEER Pulse 62 07/09/2023 11:51 AM MOLDING ENGINEER Temperature - - Respiratory Rate - - Oxygen Saturation 99% 07/09/2023 11:51 AM MOLDING ENGINEER Inhaled Oxygen Concentration - - Weight 93.6 kg (206 lb 6.4 oz) 07/09/2023 11:51 AM MOLDING ENGINEER Height 177.8 cm (5' 10 ) 07/09/2023 11:51 AM MOLDING ENGINEER Body Mass Index 29.62 07/09/2023 11:51 AM MOLDING ENGINEER Plan of Treatment Health Maintenance Due Date Last Done Comments Depression Screening 1942 Fall Risk Assessment 1942 DTaP/Tdap/Td Vaccine (1 - Tdap) 1953 Hepatitis B Screening 1960 Zoster Vaccine (1 of 2) 1992 Pneumococcal vaccine 65+ (1 of 1 - PCV) 2007 Well Visit 65+ 2007 Influenza Vaccine (#1) 2024 Procedures Procedure Name Priority Date/Time Associated Diagnosis Comments CARDIOLOGY DOCUMENT SCAN Routine 05/07/2024 3:43 PM MOLDING ENGINEER CARDIOLOGY DOCUMENT SCAN Routine 024 11:16 AM MOLDING ENGINEER CARDIOLOGY DOCUMENT SCAN Routine 05/04/2024 3:41 PM MOLDING ENGINEER from Last 3 Months Results * Cardiology Document Scan (05/07/2024 3:43 PM MOLDING ENGINEER) Anatomical Region Laterality Modality Other us Naya Watt MD CV CARDIAC SERVICES PROCEDURES Final Result * Cardiology Document Scan (05/05/2024 11:16 AM MOLDING ENGINEER) Anatomical Region Laterality Modality Other us Myrna Silvia Jo COST CLERK CV CARDIAC SERVICES PROCEDUR ES Final Result * Cardiology Document Scan (05/04/2024 3:41 PM MOLDING ENGINEER) Anatomical Region Laterality Modality Other Marilu Paul MD CV CARDIAC SERVICES PROCEDU RES Final Result from Last 3 Months Insurance [facility] Address: [id number] [place] [address] [facility] Address: [address] [address] [place] [address] Care Teams Candy Butcher Relationship Specialty Start Date End Date Benedicto Westbrook MD [address] [place] [address] PCP - General 12/09/12
--- OUTSIDE RECORDS SUMMARY | 2024-06-05 17:20 | XMS_ITS | Encounter Summary ---
Author Organization [facility] Healthcare Address [address] [place] [address] Care Team Providers Care Encapsulator Name Role Phone Benedicto Westbrook MD Primary Care Prov ider Encounter Details Date Type Department Care Team (Late st Contact Info) Description 06/27/2023 Orders Only [facility] Health Information Management [address] [place] [address] Naya Watt MD [address] [place], [place] [id number] Social History Tobacco Use Types Packs/Day Years [...] on file Legal Sex Male 1:59 AM STAFF SERVICES MANAGER Gender Identity Not on file Sexual Orientation Not on file documented as of this encounter Plan of Treatment Not on file documented as of this encounter Procedures Procedure Name Priority Date/Time Associated Diagnosis Comments CARDIOLOGY DOCUMENT SCAN 06/27/2023 documented in this encounter Results * Cardiology Document Scan (06/27/2023) Anatomical Region Laterality Modality Other Naya Watt MD CV CARDIAC SERVICES PROCEDURES Edited Result - Final documented in this encounter Visit Diagnoses Not on filedocumented in this encounter Care Teams Encapsulator Relationship Specialty Start Date End Date Benedicto Westbrook MD [address] [place] [address] PCP - General 12/09/12 documented as of this encounter
--- OUTSIDE RECORDS SUMMARY | 2024-06-05 17:20 | XMS_ITS | Referral Summary ---
Author Organization [facility] [address] [facility] [address] [place] [address] Care Team Providers Care Deputy Juvenile Officer Name Role Phone Benedicto Westbrook MD Primary Care Prov ider Encounters Date Type Department Care Team Description 05/13/2024 Orders Only [facility] Medical Group Cardiology [address] [place] [address] Myrna Osorio NP 05/08/2024 Orders Only [facility] Medical [facility] Cardiology [address] [place] [address] Marilu Paul MD from Last 3 Months Allergies Active Allergy Reactions Criticality Noted Date [...] mouth daily Active pectin/vit B6/mins 4/c.vinegar (CIDER [id number] N-[id number] ORAL) Take by mouth VINEGAR- 2 [...] Diagnosed Date Coronary artery disease invo lving zuni coronary artery of zuni heart without angina pectoris 05/29/2022 NEW (dyspnea [...] (08/17/2016): GERD (gastroesophageal reflux disease) Interstitial pneumonia (CMS/HCC) 07/29/2012 Overview (08/17/2016): Lung granuloma Calculus of [...] 10 min to report and call 911. Social History Tobacco Use Types Packs/Day Years [...] on file Legal Sex Male 1:59 AM COLLEGE ADVISOR Gender Identity Not on file Sexual Orientation Not on file Last Filed Vital Signs Vital Sign Reading Time Taken Comments Blood Pressure 130/80 07/09/2023 11:51 AM COLLEGE ADVISOR Pulse 62 07/09/2023 11:51 AM COLLEGE ADVISOR Temperature - - Respiratory Rate - - Oxygen Saturation 99% 07/09/2023 11:51 AM COLLEGE ADVISOR Inhaled Oxygen Concentration - - Weight 93.6 kg (206 lb 6.4 oz) 07/09/2023 11:51 AM COLLEGE ADVISOR Height 177.8 cm (5' 10 ) 07/09/2023 11:51 AM COLLEGE ADVISOR Body Mass Index 29.62 07/09/2023 11:51 AM COLLEGE ADVISOR Plan of Treatment Not on file Procedures Procedure Name Priority Date/Time Associated Diagnosis Comments CARDIOLOGY DOCUMENT SCAN Routine 05/07/2024 3:43 PM COLLEGE ADVISOR CARDIOLOGY DOCUMENT SCAN Routine 11:16 AM COLLEGE ADVISOR CARDIOLOGY DOCUMENT SCAN Routine 05/04/2024 3:41 PM COLLEGE ADVISOR from Last 3 Months Results * Cardiology Document Scan (05/07/2024 3:43 PM COLLEGE ADVISOR) Anatomical Region Laterality Modality Other us Naya Watt MD CV CARDIAC SERVICES PROCEDURES Final Result * Cardiology Document Scan (05/05/2024 11:16 AM COLLEGE ADVISOR) Anatomical Region Laterality Modality Other us Myrna Osorio NP CV CARDIAC SERVICES PROCEDUR ES Final Result * Cardiology Document Scan (05/04/2024 3:41 PM COLLEGE ADVISOR) Anatomical Region Laterality Modality Other us Marilu Paul MD CV CARDIAC SERVICES PROCEDU RES Final Result from Last 3 Months Insurance [facility] Address: [facility] [address] [place] [address] [employer] Care Teams Deputy Juvenile Officer Relationship Specialty Start Date End Date Benedicto Westbrook MD [address] [place] [address] PCP - General 12/09/12
--- OUTSIDE RECORDS SUMMARY | 2024-06-05 17:20 | XMS_ITS | Data Portability ---
Author Organization [facility] [employer], Main Office Address [address] [place] [address] Care Team Providers Care Digital Computer Operator Name Role Phone ISA NIELSEN Primary Care Provider ISA NIELSEN Referring Provider [phone] Assessment Encounter Date Assessment Date Assessment LastModified by Organization Details LastModified Time 03/12/2023 03/12/2023 This note is dictated and transcribed by [employer]. Italian Tutor variances may occur. Despite proofreading, typographical errors may occur. [email or web address] Not available 03/12/2023 10:20:04 04/16/2023 04/16/2023 This note is dictated and transcribed by [employer]. Italian Tutor variances may occur. Despite proofreading, typographical errors may occur. [email or web address] Not available 04/16/2023 13:03:43 Plan of Treatment Reminders Order Date Submit Date Provider Last Modified By Organization Details Last Modified Time Details Appointments None recorded. Lab None recorded. Referral None recorded. Procedures None recorded. Surgeries None recorded. Imaging XR, toe(s) 2022 023 dilcia Reece [facility] [place], [facility], [place], [address], 10:22:18 Medication Orders doxycycline hyclate 100 mg tablet 2022 023 [id number], [address], [place], [place], [phone], 10:17:45 doxycycline hyclate 100 mg tablet 2022 023 [id number], [address], [place], [place], [phone], 13:04:19 Patient TargetsNo targets recorded. Patient InstructionsNo instructions recorded. Reason for Referral None Reported. Results Created Date Observation Date Name Description Value Unit Range Abnormal Flag Note LastModifiedBy Organization Detail LastModifiedTime 03/12/20 XR, toe(s ) No observ ation record ed. [email or web address] [facility] [place] [address], [place], [address], 03/12/2023 10:22:16 04/20/20 23 04/20/2023 XR, foot, 2 view [facility] [address] [place], [place] [id number] [phone] Patien t Name: DYLAN MASTERS Access ion #: [id number] Sex: M : 1940 5 Dictat ed By: Ralph Woodward Attend ing Physic sammie: KULDIP PARKER Orderi ng Physic sammie: KULDIP PARKER Exam Date: 2022 09:23 AM Exam Name: XR FOOT RT 2V Admitt ing Diagno sis(es ): right foot radiog raph CLINIC AL INDICA TION: post-o p surg ap/lat withou t shoe TECHNI QUE: 2 radiog raphic views of the right foot were obtain ed. Compar jacqueline: none FINDIN GS: Third digit amputa tion with overly ing soft tissue swelli ng. Second digit deform ity. IMPRES RAJI: Third digit amputa tion with overly ing soft tissue swelli ng. Refer to operat karin report . Electr onical ly Signed by: Ralph Woodward at 2022 10:44: 33 AM Page 1 [email or web address] [facility] (Imaging) [address] [place], [address], 04/24/2023 09:40:48 Result Notes None recorded. Problems Name Problem SNOMED Code Status Onset Date Resolution Date Notes Provider Name and Address Organization Details Recorded Time Pain of left knee joint 0328193043718 07 Active 2022 THUY Valentin, [facility] [employer] [facility] 3 11:41:33 Cellulitis of toe of right foot 5905285858344 9106 Active 2021 Not Available [facility] 03:08:21 Hammer toe 518233498 Active 2022 Not Available [employer] 3 03:08:21 Callosity on toe 290255113 Active 2022 Not Available [facility] 3 03:08:21 Pain in toe 456102990 Active 2021 Not Available [facility] 3 03:08:21 Ulcer of toe 458540824 Active 2021 Not Available [facility] 3 03:08:21 Pain in right foot 1549514557273 07 Active 2021 Not Available [employer] 3 03:08:21 Osteoarthr itis of left hip joint 3474377879182 08 Active 2021 Not Available [employer] 3 03:08:21 Osteoarthr itis of right hip joint 3324848025537 07 Active 2021 Not Available [employer] 3 03:08:22 Hip pain 42200730 Active 2021 Not Available [employer] 3 03:08:22 Hip pain 28390066 Active 2021 Not Available [employer] 3 03:08:22 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 Procedures Surgical History Date Name Laterality Status Provider Name and Address Organization Details Recorded Time 02/06/20 Wound Care-Podiatry completed Kuldip Lala DPM [address], [address], [place], [address], [employer] 02/05/2023 11:16:40 01/23/20 23 Wound Care-Podiatry completed Kuldip Lala DPM [address], [address], [place], [address], [employer] 02/02/2023 12:17:20 01/02/20 23 Nail Debridement completed Kuldip Lala DPM [address], [address], [place], [address], [employer] 01/01/2023 10:31:41 01/02/20 23 Wound Care-Podiatry completed Kuldip Lala DPM [address], [address], [place], [address], [employer] 01/01/2023 10:31:22 12/26/19 23 Wound Care-Podiatry completed Kuldip Lala DPM [address], [address], [place], [address], [employer] 12/25/2022 11:25:39 10/24/19 23 Nail Debridement completed Kuldip Lala DPM [address], [address], [place], [address], [employer] [facility] 10/23/2022 11:07:53 10/24/19 23 Callus Debridement, One completed Kuldip Lala DPM [address], [address], [place], [address], [facility] 10/23/2022 10:58:07 08/04/19 21 Knee Surgery completed Not Available [facility] 023 02:55:10 Imaging Results Imaging Date Name Status LastModified by Organiz ation Details LastModified Time 03/12/2023 XR, toe(s) completed [email or web address] [facility] [place] [address], [place], [address], 03/12/2023 10:22:16 04/20/2023 XR, foot, 2 view completed [email or web address] [facility] ([facility]) [address], [place], [address], 04/24/2023 09:40:48 Procedure Notes None recorded. Medical Equipment None Reported. Allergies Allergen ID Allergen Name Allergen Category Reaction Reaction Severity Criticality Documentation Date Start Date Code Code System Note Provider Name and Address Organization Details Recorded Time 5941 Product containin g penicilli n and antibioti c (product) medicatio n Not available Not available Not available 07/12/2022 66074 05 SNOMED Not Available [facility] 3 03:28:46 Medications Name Sig Start Date Stop Date Status Note LastModified by Organization Details LastModified Time latanoprost 0.005 % eye drops INSTILL 1 DROP INTO THE RIGHT EYE AT BEDTIME active Not Available Not Available No t Available atorvastati n 40 mg tablet TAKE 1 TABLET BY MOUTH EVERY MORNING active Not Available Not Available No t Available prednisone 10 mg tablet active Not Available Not Available Not Available doxycycline hyclate 100 mg capsule Take 1 capsule twice a day by oral route as directed for 10 days. active Not Available Not Available No t Available hydrocodone 5 mg-acetamin ophen 325 mg tablet TAKE 1 TABLET BY MOUTH EVERY 6 HOURS NEEDED FOR PAIN active Not Available Not Available No t Available atenolol 25 mg tablet TAKE 2 TABLETS BY MOUTH EVERY DAY 08/09 completed Not Available Not Available Not Available amlodipine 5 mg tablet TAKE 2 TABLETS BY MOUTH DAILY active Not Available Not Available No t Available Silvadene 1 % topical cream APPLY A 1/16 INCH (1.5 MM) THICK LAYER TO ENTIRE ulcer AREA of toe BY TOPICAL ROUTE 2 TIMES PER DAY active Not Available Not Available No t Available tamsulosin 0.4 mg capsule TAKE 1 CAPSULE BY MOUTH DAILY active Not Available Not Available No t Available Kenalog 10 mg/mL suspension for injection In office injection administe red by the provider 09/13 completed [facility]: 0003- 0494- 20 Not Available Not Available Not Available meclizine 25 mg tablet TAKE 1 TABLET BY MOUTH FOUR TIMES DAILY active Not Available Not Available No t Available hydrocodone 7.5 mg-acetamin ophen 325 mg tablet Take 1 tablet every 4-6 hours by oral route. active Not Available Not Available No t Available omeprazole 20 mg capsule,del ayed release TAKE 1 TABLET BY MOUTH TWICE DAILY active Not Available Not Available No t Available furosemide 20 mg tablet 09/10 completed Not Available Not Available Not Available albuterol sulfate HFA 90 mcg/actuati on aerosol inhaler INHALE 2 PUFFS BY MOUTH EVERY 4 HOURS NEEDED FOR SHORTNESS OF BREATH OR WHEEZING active Not Available Not Available No t Available ipratropium bromide 42 mcg (0.06 %) nasal spray USE 2 SPRAYS IN EACH NOSTRIL TWICE DAILY active Not Available Not Available No t Available doxycycline hyclate 100 mg tablet TAKE 1 TABLET BY MOUTH TWICE DAILY FOR 10 DAYS DIRECTED active Not Available Not Available No t Available atenolol 50 mg tablet TAKE 1 TABLET BY MOUTH EVERY MORNING active Not Available Not Available No t Available Asprin Ec Low Dose 81 mg tablet,beto yed release Take 1 tablet every day by oral route. 2021 active Not Available Not Available Not Avai lable magnesium active Not Available Not Stephanie ilable Not Available Vitamin C active Not Available Not Stephanie ilable Not Available Co Q-10 active Not Available Not Avail able Not Available vitamin E 2021 active Not Available Not Available Not Avai lable folic acid 2019 active Not Available Not Available Not Avai lable iron active Not Available Not Availa ble Not Available multivitami n 2021 active Not Available Not Available Not Avai lable TriHIBit Preservativ e Free 2021 active Not Available Not Available Not Avai lable apple cider vinegar active Not Available Not Available Not Available Remi active Not Available Not Availa ble Not Available Vitamin B12 2021 active Not Available Not Available Not Avai lable Dry Eye Relief active Not Available Not Available Not Available lidocaine (PF) 10 mg/mL (1 %) injection solution In office injection administe red by the provider 09/13 completed [facility]: 0409- 4276- 17 Not Available Not Available Not Available Xarelto 10 mg tablet Take 1 tablet every day by oral route. active Not Available Not Available No t Available Simbrinza 1 %-0.2 % eye drops,suspe nsion INSTILL 1 DROP INTO BOTH EYES THREE TIMES DAILY DIRECTED active Not Available Not Available No t Available Anoro Ellipta 62.5 mcg-25 mcg/actuati on powder for inhalation INHALE 1 PUFF BY MOUTH DAILY active Not Available Not Available No t Available Stiolto Respimat 2.5 mcg-2.5 mcg/actuati on solution for inhalation INHALE 1 PUFF BY MOUTH TWICE DAILY active Not Available Not Available No t Available Trelegy Ellipta 100 mcg-62.5 mcg-25 mcg powder for inhalation INHALE 1 PUFF BY MOUTH DAILY active Not Available Not Available No t Available Vitals Date Recorded Body height Body mass index (BMI) Body weight Heart rate Respiratory rate Oxygen saturation Oxygen saturation in Arterial blood by Pulse oximetry Systolic blood pressure Diastolic blood pressure Provider Name and Address Organization Details Last Updated DateTime 3 177.8 cm 25.8 kg/m2 62341.6 3 g 58 /min 14 /min 98 % 98 % 134 mm[Hg] 71 mm[Hg] Gemini Londono [employer] 3 11:45:46 Date Recorded Body height Body mass index (BMI) Body weight Heart rate Respiratory rate Oxygen saturation Oxygen saturation in Arterial blood by Pulse oximetry Systolic blood pressure Diastolic blood pressure Provider Name and Address Organization Details Last Updated DateTime 3 177.8 cm 25.8 kg/m2 47144.6 3 g 63 /min 14 /min 98 % 98 % 153 mm[Hg] 79 mm[Hg] Gemini Londono [facility] [employer] 3 09:50:22 Date Recorded Body height Body mass index (BMI) Body weight Heart rate Respiratory rate Oxygen saturation Oxygen saturation in Arterial blood by Pulse oximetry Systolic blood pressure Diastolic blood pressure Provider Name and Address Organization Details Last Updated DateTime 12/04/202 3 177.8 cm 25.8 kg/m2 91602.6 3 g 64 /min 14 /min 98 % 98 % 146 mm[Hg] 75 mm[Hg] Gemini Londono [facility] [employer] [facility] 3 11:34:44 Date Recorded Body height Body mass index (BMI) Body weight Heart rate Respiratory rate Oxygen saturation Oxygen saturation in Arterial blood by Pulse oximetry Systolic blood pressure Diastolic blood pressure Provider Name and Address Organization Details Last Updated DateTime 3 177.8 cm 25.8 kg/m2 60730.6 3 g 62 /min 14 /min 97 % 97 % 157 mm[Hg] 84 mm[Hg] Gemini Londono [facility] [employer] [facility] 3 10:38:15 Date Recorded Body height Body mass index (BMI) Body weight Heart rate Respiratory rate Oxygen saturation Oxygen saturation in Arterial blood by Pulse oximetry Systolic blood pressure Diastolic blood pressure Provider Name and Address Organization Details Last Updated DateTime 4 177.8 cm 25.8 kg/m2 89540.6 3 g 68 /min 16 /min 97 % 97 % 147 mm[Hg] 77 mm[Hg] Gemini Londono [facility] [employer] [facility] 4 10:19:16 Social History Question Answer Notes LastModified by Organizat ion Details LastModified Time Tobacco Smoking Status Former Smoker Not Available [facility] 07/12/2022 02:53:21 What Is Your Level Of Alcohol Consumption? None [id number] Information not available 07/12/2022 What Is Your Level Of Caffeine Consumption? Occasional [id number] Information not available 07/12/2022 What Was The Date Of Your Most Recent Tobacco Screening? 04/03/2022 [id number] Information not available 07/12/2022 Do You Use Any Illicit Or Recreational Drugs? No [id number] Information not available 07/12/2022 Has Tobacco Cessation Counseling Been Provided? No [id number] Information not available 07/12/2022 Do You Or Have You Ever Used Any Other Forms Of Tobacco Or Nicotine? No [id number] Information not available 07/12/2022 Sex: Unknown Functional Status None recorded. Mental Status None recorded. Family History Relationship Description Onset Age of this Age Resolved Age Notes LastModified by Organization Details LastModified Time Mother Heart disease [id number] Not available 07/12/2022 02:55:21 Mother Diabetes mellitus [id number] [id number] Not available 07/12/2022 02:55:21 Father Family history of stroke [id number] [id number] Not available 07/12/2022 02:55:21 Brother Family history of malignant neoplasm [id number] [id number] Not available 07/12/2022 02:55:21 Sister Family history of malignant neoplasm [id number].135 [id number] Not available 07/12/2022 02:55:21 Medical History Condition Response ARTHRITIS Y COPD Y HYPERTENSION Y DIZZINESS Y Past Encounters Encounter ID Performer Location Encounter Start Date Encounter Closed Date Diagnosis/Indication Diagnosis SNOMED-CT Code Diagnosis ICD10 Code Diagnosis Note [id number] [facility] [place] [address] [place] [address] 07/28/2020 00:00:00 07/28/2020 11:06:17 [id number] [facility] [place] [address] [place] [address] 08/17/2020 00:00:00 08/17/2020 14:51:36 [id number] [facility] [place] [address] [place] [address] 09/14/2020 00:00:00 09/14/2020 15:20:31 [id number] [facility] [place] [address] [place] [address] 08/09/2021 00:00:00 08/09/2021 16:05:08 [id number] _ATHENA_M IGRATION_ DEFAULT_1 _1 , 04/03/2022 00:00:00 04/04/2022 11:28:49 [id number] _ATHENA_M IGRATION_ DEFAULT_1 _1 , 04/10/2022 00:00:00 04/10/2022 20:23:14 [id number] _ATHENA_M IGRATION_ DEFAULT_1 _1 , 04/17/2022 00:00:00 04/18/2022 09:51:26 [id number] [facility] [place] [address] [place] [address] 05/29/2022 00:00:00 05/29/2022 14:44:18 [id number] [facility] [place] [address] [place] [address] 06/05/2022 00:00:00 06/10/2022 09:27:08 [id number] [facility] [place] [address] [place] [address] 06/26/2022 00:00:00 06/26/2022 14:42:37 [id number] Tim Verde MD [facility] [place] [address] [place] [address] 08/07/2022 11:17:34 08/07/2022 12:48:26 Pain of left knee joint 4427351995 68960 M25.562 History of left total knee replacement 5845519581 448575 Z96.652 [id number] Kuldip Lala DPM [facility] [place] [address] [place] [address] 10/23/2022 10:40:52 10/23/2022 11:17:23 Hammer toe 636513157 M20.41 Right 3rd toeContinu e conservati ve offloading Monitor for wounds daily at present seek medical attention immediatel yFollow-up in 2 months plan surgery in the fall- 3rd toe right foot Callosity on toe 3665445 01 L84 debrided without incidentCo ntinue offloading Follow-up in 2 months [id number] Kuldip Lala DPM [facility] [place] [address] [place] [address] 12/25/2022 10:48:00 12/25/2022 12:13:02 Hammer toe 319278058 M20.41 Right 3rd toeContinu e conservati ve offloading Monitor for wounds daily at present seek medical attention immediatel ywill follow-up plan surgery in the fall ( January) - 3rd toe right foot Callosity on toe 7269586 01 L84 debrided without incident Ulcer of toe 062229983 L 97.509 right 3rd toedebride d todayEduca jessica on daily wound careFollow -up in 1 week [id number] Kuldip Lala DPM [facility] [place] [address] [place] [address] 01/01/2023 09:47:52 01/01/2023 10:57:17 Ulcer of toe 386986686 L97.509 right 3rd toedebride d todayEduca jessica on daily wound careFollow -up in 1 week Hammer toe 905843750 M20 .41 Right 3rd toeContinu e conservati ve offloading Monitor for wounds daily at present seek medical attention immediatel ywill follow-up plan surgery in the fall ( January) - 3rd toe right foot [id number] Kuldip Lala DPM [facility] [place] [address] [place] [address] 01/22/2023 10:20:17 02/05/2023 11:50:42 Callosity on toe 833674436 L84 debrided without incident Ulcer of toe 992297823 L 97.509 right 3rd toedebride d todayreinf orce proper wound care dailydaily foot hygieneedu cated on signs and symptoms of infection at present seek medical attention immediatel yEducated on daily wound careFollow -up in 1 week [id number] Kuldip Lala DPM [facility] [place] [address] [place] [address] 02/05/2023 10:28:05 02/05/2023 11:56:40 Callosity on toe 910244113 L84 debrided without incident Ulcer of toe 988566089 L 97.509 right 3rd toedebride d todayreinf orce proper wound care dailydaily foot hygieneedu cated on signs and symptoms of infection at present seek medical attention immediatel yEducated on daily wound careFollow -up in 2 week [id number] Kuldip Lala DPM [facility] [place] [address] [place] [address] 02/19/2023 10:45:59 02/19/2023 14:47:03 Ulcer of toe 571992424 L97.509 healedcont inue offloading to recurrence of wound distal 3rd toe rightmonit or for wounds daily at present seek medical attention immediatel yFollow-up in 1 month [id number] Kuldip Lala DPM [facility] [place] [address] [place] [address] 03/12/2023 09:44:10 03/12/2023 10:28:46 Callosity on toe 882664362 L84 distal 3rd toe, right Ulcer of toe 950138046 L 97.509 distal right 3rd toedaily wound care to prevent infectionc ontinue offloading to recurrence of wound distal 3rd toe rightmonit or for wounds daily at present seek medical attention immediatel yobtain surgical clearancer eturn 1-2 weeks if not cleared for surgery for wound care Acute oste omyelitis of phalanx of toe 072358033 M86.179 x-rays confirmed osteomyeli tis distal phalanx right 3rd toeplan surgical amputation partial right 3rd toeobtain surgical clearance from PCP [id number] Kuldip Lala DPM [facility] [place] [address] [place] [address] 04/16/2023 11:25:12 04/16/2023 17:47:17 Ulcer of toe 613573295 L97.509 distal right 3rd toedaily wound carecontin ue offloading to recurrence of wound distal 3rd toe rightmonit or for wounds daily at present seek medical attention immediatel yplan partial amputation right 3rd toe on 12- Acute oste omyelitis of phalanx of toe 076038958 M86.179 x-rays confirmed osteomyeli tis distal phalanx right 3rd toeplan surgical amputation partial right 3rd toecleared for surgery--- from PCP Callosity on toe 5378570 01 L84 distal 3rd toe, right Cellulitis of toe of right foot 3458337593 4728896 L03.031 3rd toe as aboveRx doxycyclin e [id number] Kuldip Lala DPM [facility] [place] [address] [place] [address] 04/23/2023 10:32:10 04/23/2023 14:10:02 Postoperative care 960124914 Z48.89 status post 3 days- partial toe amppatholo gy pendingcon tinue Betadine wet-to-dry dressings dailyofflo ading at all timesfollo w-up in 1 week if concerns for wounds or infection if not will see in 3 weeks for suture removal [id number] Kuldip Lala DPM [facility] [place] [address] [place] [address] 05/21/2023 10:14:30 05/21/2023 10:42:17 Postoperative care 591148337 Z48.89 status post - partial toe amppatholo gy Reviewedin cision healedoffl oading at all timesfollo w-up as needed Acute oste omyelitis of phalanx of toe 280463325 M86.179 pathology reviewedre solved secondary to amputation of affected bones Health Concerns Section Related Observation LastModified by Organization Detai ls LastModified Time None Recorded Concern Status LastModified by Organization Details LastModified Time None Recorded Advance Directives Directive None Recorded Payers Encounter Date Sequence Insurance Name Policy Number Policy Hagan Covered Member ID Hagan Member ID Guarantor Name 02/19/2023 1 [facility] (MEDICARE REPLACEMENT/A DVANTAGE - PPO) [id number] Dylan Masters [id number] Dylan Masters 03/12/2023 1 [facility] (MEDICARE REPLACEMENT/A DVANTAGE - PPO) [id number] Dylan Masters [id number] Dylan Masters 04/16/2023 1 [facility] (MEDICARE REPLACEMENT/A DVANTAGE - PPO) [id number] Dylan Masters [id number] Dylan Masters 04/23/2023 1 [facility] (MEDICARE REPLACEMENT/A DVANTAGE - PPO) [id number] Dylan Masters [id number] Dylan Masters 05/21/2023 1 [facility] (MEDICARE REPLACEMENT/A DVANTAGE - PPO) [id number] Dylan Masters [id number] Dylan Masters Notes Date Note Type Note Provider Name and Address Organization Details Recorded Time 02/19/2023 text/html . Patient is 82-year-old male who returns the office for follow-up on a wound to the plantar 3rd toe. Patient has healed the area with minor callusing. Patient denies any further drainage. Patient continues offload the area. Patient states that once he gets done with forming he would like to undergo surgical correction but this time he is unable to have surgery. Patient states overall he is doing well with offloading. Patient denies any other complaints. Kuldip Lala DPM [address], [place], [address], [employer] 02/19/2023 14:45:44 03/12/2023 text/html . Patient is an 82-year-old male who presents the office with complaints of continued wound to the right 3rd toe. Patient has a plantar flexor deformity which he has continued to develop a wound which the patient denied wanting any surgery and is now done with forming and states that he would like to pursue surgery due to worsening of the wound today patient underwent x-rays which confirmed erosive changes to the distal phalanx of the 3rd toe. I recommend that the patient be seen by his primary for surgical clearance for MAC anesthesia for partial toe amputation to remove the infected bone and reduce the deformity of the toe. Patient states understanding wants to continue with the planned procedure. We will plan for surgery either March 30 through April 13 depending on clearance. Patient denies any other complaints. Kuldip Lala DPM [address], [place], [address], [employer] 03/12/2023 10:22:38 04/16/2023 text/html . Patient is an 82-year-old male who returns the office for wound to the distal aspect of the 3rd toe right foot. Patient continues have a wound secondary to hammertoe deformity. Patient is here for surgical evaluation which he has been cleared. Patient denies any new pedal complaints. Patient denies any fever, chills, nausea vomiting. Patient has continued offloading and daily wound care. Patient denies any other complaints. Kuldip Lala DPM [address], [place], [address], [employer] 04/16/2023 13:05:08 04/23/2023 text/html status post 3 da ys partial toe amp 3rd toe. Patient denies any fever, chills, nausea vomiting. Patient states he has minor pain which is controlled with pain medication. Patient denies any other complaints. Kuldip Lala DPM [address], [facility] [address], [place], [address], [employer] [facility] [employer] 04/23/2023 11:54:44 05/21/2023 text/html . Patient is an 83-year-old male who returns the office for partial toe amp secondary to osteomyelitis. Patient is completely healed and denies any new complaints. Patient denies any signs of infection. Patient states his toe is remain completely healed and has no new issues. Kuldip Lala DPM [address], [facility] [address], [place], [address], [employer] 05/21/2023 10:39:53
--- OUTSIDE RECORDS SUMMARY | 2024-06-05 17:20 | XMS_ITS | Data Portability ---
Author Organization [facility] Address [address] [place] [address] Assessment No assessment recorded. Plan of Treatment Reminders Order Date Submit Date Provider Last Modified By Organization Details Last Modified Time Details Appointments None record ed. Lab None record ed. Referral None record ed. Procedures None record ed. Surgeries None record ed. Imaging None record ed. Medication Orders None record ed. Patient TargetsNo targets recorded. Patient InstructionsNo instructions recorded. Reason for Referral None Reported. Medical Equipment None Reported. Vitals None Recorded Social History None recorded. Functional Status None recorded. Mental Status None recorded. Family History Nothing Reported. Medical History No medical history recorded. Immunizations Vaccine Type Date Status Note Provider Nam e and Address Organization Details Recorded Time COVID-19, mRNA, LNP-S, PF, 100 mcg/0.5mL dose or 50 mcg/0.25mL dose 06/29/2020 completed NOHEMI [place] - [facility] 06/29/2020 13:16:45 COVID-19, mRNA, LNP-S, PF, 100 mcg/0.5mL dose or 50 mcg/0.25mL dose 07/22/2020 completed SANDRA [place]den [place] - [facility] 07/22/2020 11:59:58 Past Encounters Encounter ID Performer Location Encounter Start Date Encounter Closed Date Diagnosis/Indication Diagnosis SNOMED-CT Code Diagnosis ICD10 Code Diagnosis Note [id number] NOHEMI [place] 14 IM 4 [facility] [place] Chan [address] 06/24/2020 11:17:50 06/25/2020 08:43:48 Administration of SARS-CoV-2 antigen vaccine 398194274 Z23 [id number] NOHEMI [place] 14 IM 4 [facility] OFELIA Chan [id number] 1 07/22/2020 11:12:23 07/23/2020 16:28:26 Administration of SARS-CoV-2 antigen vaccine [id number] Z23 Health Concerns Section Related Observation LastModified by Organization Detai ls LastModified Time None Recorded Concern Status LastModified by Organization Details LastModified Time None Recorded Advance Directives Directive None Recorded Payers Encounter Date Sequence Insurance Name Policy Number Policy Hagan Covered Member ID Hagan Member ID Guarantor Name 06/24/2020 1 [place] Dylan Masters [id number] Dylan Masters 06/24/2020 2 [facility] (MEDICARE REPLACEMENT/A DVANTAGE - PPO) [id number] Dylan Masters [id number] Dylan Masters 07/22/2020 1 [place] Dylan Masters [id number] Dylan Masters 07/22/2020 2 [facility] (MEDICARE REPLACEMENT/A DVANTAGE - PPO) [id number] Dylan Masters [id number] Dylan Masters
--- OUTSIDE RECORDS SUMMARY | 2024-06-05 17:20 | XMS_ITS | Encounter Summary ---
Author Organization [facility] Healthcare Address [address] [place] [address] Care Team Providers Care Cardiothoracic Anesthesia Technician Name Role Phone Benedicto Westbrook MD Primary Care Prov ider Encounter Details Date Type Department Care Team (Late st Contact Info) Description 06/21/2023 Orders Only [facility] Health Information Management [address] [place] [address] Naya Watt MD [address] [place], [place] [id number] Social History Tobacco Use Types Packs/Day Years [...] on file Legal Sex Male 1:59 AM [employer] OPER[employer] Gender Identity Not on file Sexual Orientation Not on file documented as of this encounter Plan of Treatment Not on file documented as of this encounter Procedures Procedure Name Priority Date/Time Associated Diagnosis Comments SCAN - RADIOLOGY/IMAGING 06/21/2023 documented in this encounter Results * SCAN - RADIOLOGY/IMAGING (06/21/2023) Anatomical Region Laterality Modality Other Naya charles Result documented in this encounter Visit Diagnoses Not on filedocumented in this encounter Care Teams Cardiothoracic Anesthesia Technician Relationship Specialty Start Date End Date Benedicto Westbrook MD [address] [place] [address] PCP - General 12/09/12 documented as of this encounter
== END 2024-06-03 10:17 | disposition home or self-care (01) ==
PROVIDERS: PCP Family Medicine Adolescent Medicine; Visit Provider Family Medicine Adolescent Medicine
DX: N17.9 Acute kidney failure, unspecified (principal); Z48.815 Encounter for surgical aftercare following surgery on the digestive system
CPT/HCPCS: 36415; 80053